=== PATIENT | male | born 1940 | race Caucasian/White ===

== ENCOUNTER → 2016-08-25 | Outpatient (CLI) | payer OTHER, MEDICARE ==
[~2016-08-25] MED LIST: ACET-1311 PO; ARTISOL12 OPB; ASCA500 PO; ASCO500T16 PO; BENZ-89 PO; BIOT1TAB5 PO; CGN5 PO; CYAN500T13 PO; FLUP1TAB PO; LINICRE61 TOP; LISI20TA3 PO; LOPE1CAP6 PO; LORA-741 PO; MIRT15TA2 PO; MIRT30TA3 PO; MOML PO; MULT-506 PO; MULT60CA PO; MULTCAP33 PO; NMN10 PO; POLY335019 PO; POLYSOL OPB; PRLDMDV IM; PYRI100T4 PO; RMR15 PO; SELE1SHA3; SIME1CHW17 PO
[2016-08-25 12:41] LABS: HEMATOCRIT 41.1 % (42-52); MEAN CELL VOLUME 89.5 fL (80-100); MEAN CORPUSCULAR HEMOGLOBIN 29.8 pg (25-34); MEAN CORPUSCULAR HGB CONC 33.3 g/dl (32-36); MEAN PLATELET VOLUME 9.7 fL (7.4-10.4); PLATELET COUNT 301 K/uL (130-400); RED BLOOD COUNT 4.59 M/uL (4.7-6.1); WHITE BLOOD COUNT 10.96 K/uL (4.8-10.8)
[2016-08-25 13:33] LABS: BLOOD UREA NITROGEN 9 mg/dl (7-18); BUN/CREATININE RATIO 8.6 (10-20); CALCIUM 8.9 mg/dl (8.5-10.1); CARBON DIOXIDE 30 mmol/L (21-32); CHLORIDE 102 mmol/L (98-107); GLUCOSE 91 mg/dl (70-99); POTASSIUM 4.5 mmol/L (3.5-5.1); SODIUM 138 mmol/L (136-145)
== END | disposition home or self-care (01) ==
LOC: C.LABWYN 10:24
PROVIDERS: ATTEND Internal Medicine
DX: R53.83 Other fatigue (principal)

== ENCOUNTER 2016-09-13 10:54 | Emergency (ER) | payer OTHER, MEDICARE ==
[~2016-09-13] VITALS: Ht 172.7 cm; Wt 112.5 kg
[~2016-09-13 10:54] MED LIST changes: -ACET-1311 PO; -ASCO500T16 PO; -BENZ-89 PO; -MIRT15TA2 PO; -MIRT30TA3 PO; -MOML PO; -MULT60CA PO; -POLY335019 PO
[2016-09-13 10:58] VITALS: TEMP 37; Ht 172.7 cm; Wt 112.5 kg
[2016-09-13] MEDS ORDERED: ASCO500T16 PO (11:32)
[2016-09-13] MEDS ORDERED: MOML PO (11:32)
[2016-09-13] MEDS ORDERED: MIRT15TA2 PO (11:32)
[2016-09-13] MEDS ORDERED: POLY335019 PO (11:32)
[2016-09-13] MEDS ORDERED: ACET-1311 PO (11:32)
[2016-09-13] MEDS ORDERED: BENZ-89 PO (11:32)
--- NOTE | 2016-09-13 11:40 | EMERGENCY ROOM VISIT NOTE ---
History First contact with patient: 11:02 Chief Complaint: SHOULDER PAIN Stated Complaint: NECK & RT SHOULDER PAIN History of Present Illness The patient is a 76 year old male who presents to the Emergency Room with complaints of right sided shoulder and neck pain. This has been going on for 2 years but last night it was more intense. The neck pain was severity 10/10 and shoulder blade pain 7/10. He lives in a personal [facility] as as I understand there was some confusion whether he was having any chest pain when he called up the nurses there and so EMS were called. From the EMS note only shoulder and neck pain are mentioned and the patient denies ever having chest pain. He is currently in no pain in his shoulder, neck or chest. He denies any palpitations , shortness of breath, diaphoresis, orthopnea or PND. Review of Systems See HPI for pertinent positives & negatives. A total of 10 systems reviewed and were otherwise negative. Past Medical/Surgical History Medical Problems: (1) Bipolar disorder (2) Dementia (3) Hypertension (4) Hyponatremia (5) Pneumonia (6) Schizoaffective disorder (7) Seizure Family History Cancer Hypertension Social History Smoking Status: Former Smoker Alcohol Use: none Housing Status: assisted living Occupation Status: retired Current/Historical Medications Scheduled Artificial Tear Solution (Artificial Tears), 1 DROP OPB BID Ascorbic Acid (Ascorbic Acid), 500 MG PO DAILY Benztropine Mesylate (Cogentin), 1.5 MG PO BID Biotin (Biotin), 1,000 MCG PO TID Cyanocobalamin (Vitamin B12 500MCG), 125 MCG PO DAILY Fluphenazine Decanoate (Fluphenazine Decanoate), 25 MG [id number] Lisinopril (Prinivil), 20 MG PO DAILY Memantine (Namenda), 10 MG PO BID Mirtazapine Soltab (Remeron Soltab), 15 MG PO HS Multiple Vitamins W/ Minerals (Preservision Areds), 1 CAP PO BID Multivitamin (Multivitamin), 1 TAB PO DAILY Polyethylene Glycol 3350 (Miralax), 17 GM PO DAILY Pyridoxine (Vitamin B6), 50 MG PO DAILY Simethicone (Gas Relief), 80 MG PO QID Scheduled PRN Acetaminophen (Tylenol), 650 MG PO Q4 PRN for Pain Loperamide Hcl (Anti-Diarrheal), 2 MG PO Q4 PRN for Diarrhea Lorazepam (Ativan), 0.5 MG PO TID PRN for Anxiety/Agitation Magnesium Hydroxide (Milk Of Magnesia), 30 ML PO DAILY PRN for Constipation Allergies Coded Allergies: Olanzapine (Verified Allergy, Mild, "IT DOES NOT WORK", 09/13/16) Risperidone (Verified Allergy, Unknown, UNKNOWN, 09/13/16) Tricyclic Antidepressants (Verified Allergy, Unknown, ., 09/13/16) Flu Virus Vaccine (Verified Adverse Reaction, Unknown, CAUSES PAIN AT INJECTION SITE, 09/13/16) Physical Exam Vital Signs Date Time Temp Pulse Resp B/P (MAP) Pulse Ox O2 Delivery O2 Flow Rate FiO2 09/13/16 13:07 72 19 178/98 98 Room Air 09/13/16 10:58 37.0 79 19 147/78 96 Room Air Physical Exam VITAL SIGNS: were reviewed as above GENERAL: no acute distress SKIN: Warm dry and pink HEAD: Normocephalic and atraumatic OROPHARYNX: 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 Unable to reproduce pain on shoulder or back. Moving his shoulder well. no shooting pain going down right arm. NEUROLOGICALLY: Awake alert and oriented. Lip smacking noted. Cranial nerves 2- 12 intact. Cerebellar testing is within normal limits. There is no facial droop. Speech is clear. Vision is grossly normal. Right arm motor and sensation intact. Medical Decision & Procedures ER Provider Diagnostic Interpretation: CHEST ONE VIEW PORTABLE CLINICAL HISTORY: Back pain. Mediastinal enlargement. COMPARISON STUDY: 07/23/2014 FINDINGS: The heart remains mildly enlarged. There is mild superior mediastinal prominence, less pronounced than on the preceding study. There is no focal pulmonary consolidation. There is no failure. There is minor right basilar atelectasis. No pleural effusions are visualized.[ IMPRESSION: AP portable study. No acute findings. Electronically signed by: Atif Campuzano M.D. 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 Medical Decision Prior records/ancillary studies reviewed. Triage Nursing notes reviewed. Additional history obtained from patient. The patient's history was concerning for neck and shoulder pain. Differential diagnosis: Etiologies such as musculoskeletal, disc herniation, fracture, aortic disease, metastatic disease, cord compression, discitis, infection, acute exacerbation of chronic back pain as well as others were entertained. Physical findings: As above. No focal neurologic findings noted. ER treatment provided: None as patient was without pain in the ER. No labs taken. Imaging studies: CXR showed This appears to be consistent with his chronic neck and shoulder pain, patient has been pain free since coming to the ER. The patient's physical examination and detailed history did not reveal any red flags for back pain such as those listed in the differential diagnosis. Therefore advanced diagnostics and consultations were felt to be unwarranted. By the evaluation outlined above emergent etiologies such as fracture, aortic disease, metastatic disease, infection, renal colic, gastrointestinal, cord compression, cauda equina, as well as others were deemed relatively unlikely. The patient was informed about the findings as listed above. All questions were answered and he pleased with the investigations done. He requested a prescription for ativan and he was advised to follow up with his PCP for prescriptions for his chronic pain and likely having muscle spasms. Return instructions were outlined and the patient was discharged in stable condition. Referral: The patient was referred back to his primary care physician for follow-up in 2 to 3 days for a recheck of the current condition. Impression Primary Impression: Chronic right shoulder pain Additional Impression: Neck muscle spasm Departure Information Dispostion Home / Self-Care Condition GOOD Referrals LUIS PEREZ (PCP) Patient Instructions My [facility] Resident Tracking Resident Involvement: Resident Care Provided Care Provided: Adult ED Problem Qualifiers
--- NOTE | 2016-09-13 11:43 | DIAGNOSTIC IMAGING REPORT ---
CHEST ONE VIEW PORTABLE CLINICAL HISTORY: Back pain. Mediastinal enlargement. COMPARISON STUDY: 07/23/2014 FINDINGS: The heart remains mildly enlarged. There is mild superior mediastinal prominence, less pronounced than on the preceding study. There is no focal pulmonary consolidation. There is no failure. There is minor right basilar atelectasis. No pleural effusions are visualized.[ IMPRESSION: AP portable study. No acute findings. Electronically signed by: Atif Campuzano M.D. 09/13/2016 11:41 AM Dictated Date/Time: 09/13/2016 11:40 AM
--- NOTE | 2016-09-13 12:44 | EMERGENCY ROOM VISIT NOTE ---
ED Visit Note First contact with patient: 11:02 Resident Physician Supervision Note: I interviewed and examined the patient. Discussed with Dr. Martin and agree with findings and plan as documented in the note. Any exceptions or clarifications are listed here: [None] Documented By: Jah Lucas
[2016-09-13 13:07] VITALS: BP 178/98; PULSE 72; O2SAT 98
== END 2016-09-13 13:08 | disposition home or self-care (01) ==
LOC: EDBD 10:54 → C.EDA 10:55
DX: M25.511 Pain in right shoulder (principal); G89.29 Other chronic pain; M62.838 Other muscle spasm; F31.9 Bipolar disorder, unspecified; F03.90 Unspecified dementia, unspecified severity, without behavioral disturbance, psychotic disturbance, mood disturbance, and anxiety; I10 Essential (primary) hypertension; E87.1 Hypo-osmolality and hyponatremia; Z87.01 Personal history of pneumonia (recurrent); F25.9 Schizoaffective disorder, unspecified; Z80.9 Family history of malignant neoplasm, unspecified; Z82.49 Family history of ischemic heart disease and other diseases of the circulatory system; Z87.891 Personal history of nicotine dependence; Z79.899 Other long term (current) drug therapy

== ENCOUNTER 2016-10-24 07:38 | Emergency (ER) | payer OTHER, MEDICARE ==
[~2016-10-24] VITALS: Ht 172.7 cm; Wt 114.4 kg
[~2016-10-24 07:38] MED LIST changes: +ACET-1311 PO; -ASCA500 PO; +ASCO500T16 PO; +CGN1 PO; -CGN5 PO; -FLUP1TAB PO; -LINICRE61 TOP; +MIRT15TA2 PO; +MOML PO; +POLY335019 PO; -POLYSOL OPB; -RMR15 PO; -SELE1SHA3
[2016-10-24 07:42] VITALS: TEMP 36.9; Ht 172.7 cm; Wt 114.4 kg
[2016-10-24] MEDS ORDERED: SODIUM CHLORIDE 0.9% 500ML 500 ML IV STA (07:53)
[2016-10-24] MEDS ORDERED: SODIUM CHLORIDE 0.9% 1000ML 1,000 ML IV STA (07:53)
--- NOTE | 2016-10-24 08:11 | EMERGENCY ROOM VISIT NOTE ---
History Report prepared by Daniel: Milly Chopra Under the Supervision of: Dr. Moon Parrish M.D. First contact with patient: 07:44 Chief Complaint: OTHER COMPLAINT Stated Complaint: UNABLE TO SWALLOW SOLID FOOD History of Present Illness The patient is a 76 year old male who presents to the Emergency Room with complaints of worsening difficulty swallowing that started a couple weeks ago. The patient came to the ED via ambulance from [facility]. He states that one of the nurses at [facility] sent him into the ED for further evaluation because he has been unable to swallow solid food for the past 2 days. The patient is able to tolerate small sips of liquids. The patient states that his mouth and throat are dry. He is unsure of if the difficulty swallowing is secondary to the dryness or if food gets stuck for other reasons. The patient is also experiencing a headache that started 1 week ago. He denies abdominal pain but states that it feels like he has to have a bowel movement. The patient has not seen GI for his symptoms. He states that is a former smoker. The patient denies any history of cancer. The patient states that he has been told that he has dementia and Alzheimer's but he does not believe that. Onset: a couple weeks ago Position: throat Quality: other (difficulty swallowing) Timing: worsening Associated Symptoms: + headache, No abdominal pain Note: dry mouth and throat Review of Systems See HPI for pertinent positives & negatives. A total of 10 systems reviewed and were otherwise negative. Past Medical & Surgical Medical Problems: (1) Bipolar disorder (2) Dementia (3) Hypertension (4) Hyponatremia (5) Pneumonia (6) Schizoaffective disorder (7) Seizure Family History Cancer Hypertension Social History Smoking Status: Unknown if Ever Smoked Alcohol Use: none Marital Status: single Housing Status: assisted living Occupation Status: retired Current/Historical Medications Scheduled Artificial Tear Solution (Artificial Tears), 1 DROP OPB BID Ascorbic Acid (Ascorbic Acid), 500 MG PO DAILY Benztropine Mesylate (Cogentin), 1.5 MG PO BID Biotin (Biotin), 1,000 MCG PO TID Cyanocobalamin (Vitamin B12 500MCG), 125 MCG PO DAILY Fluphenazine Decanoate (Fluphenazine Decanoate), 25 MG [id number] Lisinopril (Prinivil), 20 MG PO DAILY Memantine (Namenda), 10 MG PO BID Mirtazapine Soltab (Remeron Soltab), 15 MG PO HS Multiple Vitamins W/ Minerals (Preservision Areds), 1 CAP PO BID Multivitamin (Multivitamin), 1 TAB PO DAILY Polyethylene Glycol 3350 (Miralax), 17 GM PO DAILY Pyridoxine (Vitamin B6), 50 MG PO DAILY Simethicone (Gas Relief), 80 MG PO QID Scheduled PRN Acetaminophen (Tylenol), 650 MG PO Q4 PRN for Pain Loperamide Hcl (Anti-Diarrheal), 2 MG PO Q4 PRN for Diarrhea Lorazepam (Ativan), 0.5 MG PO TID PRN for Anxiety/Agitation Magnesium Hydroxide (Milk Of Magnesia), 30 ML PO DAILY PRN for Constipation Allergies Coded Allergies: Olanzapine (Verified Allergy, Mild, "IT DOES NOT WORK", 10/24/16) Risperidone (Verified Allergy, Unknown, UNKNOWN, 10/24/16) Tricyclic Antidepressants (Verified Allergy, Unknown, ., 10/24/16) Flu Virus Vaccine (Verified Adverse Reaction, Unknown, CAUSES PAIN AT INJECTION SITE, 10/24/16) Physical Exam Vital Signs Date Time Temp Pulse Resp B/P (MAP) Pulse Ox O2 Delivery O2 Flow Rate FiO2 10/24/16 10:58 75 18 189/111 95 10/24/16 10:23 75 18 189/111 95 Room Air 10/24/16 09:04 73 20 171/100 96 Room Air 10/24/16 08:39 79 10/24/16 07:42 36.9 84 17 178/97 94 Room Air Physical Exam Vital signs reviewed. General: Chronically ill-appearing male, in no significant distress. HEENT: No scleral icterus, PERRLA, dry mucous membranes, hemangioma-appearing lesion to the right upper lip, neck supple. Atraumatic. Cardiovascular: Regular rate and rhythm, no extra sounds. Pulmonary: Clear to auscultation bilaterally, normal work of breathing. Abdomen: Soft, obese, nontender, nondistended, positive bowel sounds. Musculoskeletal: Atraumatic, no peripheral edema. Neurologic: Patient awake alert and oriented x 3 Skin: Warm, dry, no rash Medical Decision & Procedures ER Provider Diagnostic Interpretation: Radiology results as stated below per my review and radiologist interpretation: CHEST 2 VIEWS ROUTINE FINDINGS: Lung volumes are normal. No pneumothorax or pleural effusion is present. Linear bibasilar opacities suggest atelectasis. There is no consolidation to suggest pneumonia. Cardiomediastinal silhouette is normal. Pulmonary vascularity is normal. IMPRESSION: 1. Linear bibasilar opacities suggestive of atelectasis. 2. No acute cardiopulmonary findings. Electronically signed by: Aaron Killian M.D. 10/24/2016 8:34 AM Dictated Date/Time: 10/24/2016 8:33 AM Laboratory Results 10/24/16 08:05 Red Blood Count 4.69, Mean Corpuscular Volume 86.6, Mean Corpuscular Hemoglobin 29.6, Mean Corpuscular Hemoglobin Concent 34.2, Mean Platelet Volume 8.8, Neutrophils (%) (Auto) 78.4, Lymphocytes (%) (Auto) 10.6, Monocytes (%) (Auto) 8.3, Eosinophils (%) (Auto) 1.7, Basophils (%) (Auto) 0.5, Neutrophils # (Auto) 9.42, Lymphocytes # (Auto) 1.27, Monocytes # (Auto) 1.00, Eosinophils # (Auto) 0.21, Basophils # (Auto) 0.06 10/24/16 08:05 Test 10/24/16 08:05 White Blood Count 12.02 K/uL (4.8-10.8) Red Blood Count 4.69 M/uL (4.7-6.1) Hemoglobin 13.9 g/dL (14.0-18.0) Hematocrit 40.6 % (42-52) Mean Corpuscular Volume 86.6 fL (80-100) Mean Corpuscular Hemoglobin 29.6 pg (25-34) Mean Corpuscular Hemoglobin Concent 34.2 g/dl (32-36) Platelet Count 288 K/uL (130-400) Mean Platelet Volume 8.8 fL (7.4-10.4) Neutrophils (%) (Auto) 78.4 % Lymphocytes (%) (Auto) 10.6 % Monocytes (%) (Auto) 8.3 % Eosinophils (%) (Auto) 1.7 % Basophils (%) (Auto) 0.5 % Neutrophils # (Auto) 9.42 K/uL (1.4-6.5) Lymphocytes # (Auto) 1.27 K/uL (1.2-3.4) Monocytes # (Auto) 1.00 K/uL (0.11-0.59) Eosinophils # (Auto) 0.21 K/uL (0-0.5) Basophils # (Auto) 0.06 K/uL (0-0.2) RDW Standard Deviation 43.9 fL (36.4-46.3) RDW Coefficient of Variation 13.9 % (11.5-14.5) Immature Granulocyte % (Auto) 0.5 % Immature Granulocyte # (Auto) 0.06 K/uL (0.00-0.02) Anion Gap 5.0 mmol/L (3-11) Est Creatinine Clear Calc Drug Dose 70.1 ml/min Estimated GFR () 75.2 Estimated GFR (Non- 64.9 BUN/Creatinine Ratio 9.0 (10-20) Calcium Level 9.0 mg/dl (8.5-10.1) Magnesium Level 2.2 mg/dl (1.8-2.4) Total Bilirubin 0.7 mg/dl (0.2-1) Direct Bilirubin 0.2 mg/dl (0-0.2) Aspartate Amino Transf (AST/SGOT) 14 U/L (15-37) Alanine Aminotransferase (ALT/SGPT) 17 U/L (12-78) Alkaline Phosphatase 57 U/L (45-117) Total Protein 6.8 gm/dl (6.4-8.2) Albumin 3.4 gm/dl (3.4-5.0) Laboratory results per my review. Medications Administered Medications (Trade) Dose Ordered Sig/Mickie Route Start Time Stop Time Status Last Admin Dose Admin Sodium Chloride 500 ml @ 999 mls/hr Q31M STAT IV 10/24/16 07:53 10/24/16 08:23 DC 10/24/16 08:42 999 MLS/HR Sodium Chloride 1,000 ml @ 125 mls/hr Q8H STAT IV 10/24/16 07:53 10/24/16 11:43 DC 10/24/16 07:53 125 MLS/HR ED Course 0752: Past medical records reviewed. The patient was evaluated in room A3. A complete history and physical examination was performed. 0753: Sodium Chloride 1000 ml @ 125 mls/hr IV, Sodium Chloride 500 ml @ 999 mls/ hr IV 0911: The nurse did a swallow study on the patient and he was able to swallow water without difficulty. 0912: I discussed the patient's case with the senior facilities manager. They are going to make sure that the patient gets in to see GI for follow-up. 0918: Upon reevaluation, the patient appeared to have improvement of his symptoms. I discussed findings with him. He verbalized agreement of the treatment plan. He was discharged home. Medical Decision Differentials include esophageal stricture, esophageal mass, dysmotility, anxiety. This patient was evaluated and appeared to be in no significant distress. IV access was obtained and laboratory work was drawn. Patient was hydrated with normal saline solution. Chest x-ray was obtained and reveals atelectasis. Patient is able to drink liquids without difficulty. Patient was encouraged to follow-up with gastroenterology, case management did contact Luis Perez. Patient will follow-up with his primary care physician this week and maintain a liquid/pureed diet. Medication Reconcilliation Current Medication List: was personally reviewed by me Blood Pressure Screening Patient's blood pressure: Elevated blood pressure Blood pressure disposition: Referred to PCP Impression Primary Impression: Dysphagia Scribe Attestation The scribe's documentation has been prepared under my direction and personally reviewed by me in its entirety. I confirm that the note above accurately reflects all work, treatment, procedures, and medical decision making performed by me. Departure Information Dispostion Home / Self-Care Referrals LUIS PEREZ (PCP) Forms HOME CARE DOCUMENTATION FORM, IMPORTANT VISIT INFORMATION, WORK / SCHOOL INSTRUCTIONS Patient Instructions My [facility] Additional Instructions Diagnosis: Dysphagia Please continue liquids and pureed foods. Follow up with gastroenterology [facility] for full swallow eval and upper endoscopy. Follow up with PCP this week for reevaluation. Return to emergency for worsening of symptoms or any medical concerns. Problem Qualifiers Primary Impression: Dysphagia Dysphagia type: unspecified Qualified Codes: R13.10 - Dysphagia, unspecified
[2016-10-24 08:16] LABS: BASO % 0.5 %; BASO ABS # 0.06 K/uL (0-0.2); COMPLETE YES; EOS % 1.7 %; HEMATOCRIT 40.6 % (42-52); IG% 0.5 %; LYMPH % 10.6 %; LYMPH ABS # 1.27 K/uL (1.2-3.4); MEAN CELL VOLUME 86.6 fL (80-100); MEAN CORPUSCULAR HEMOGLOBIN 29.6 pg (25-34); MEAN CORPUSCULAR HGB CONC 34.2 g/dl (32-36); MEAN PLATELET VOLUME 8.8 fL (7.4-10.4); MONO % 8.3 %; NEUT % 78.4 %; PLATELET COUNT 288 K/uL (130-400); RED BLOOD COUNT 4.69 M/uL (4.7-6.1); WHITE BLOOD COUNT 12.02 K/uL (4.8-10.8)
--- NOTE | 2016-10-24 08:36 | DIAGNOSTIC IMAGING REPORT ---
CHEST 2 VIEWS ROUTINE CLINICAL HISTORY: Difficulty swallowing. COMPARISON STUDY: Chest radiograph September 13, 2016. FINDINGS: Lung volumes are normal. No pneumothorax or pleural effusion is present. Linear bibasilar opacities suggest atelectasis. There is no consolidation to suggest pneumonia. Cardiomediastinal silhouette is normal. Pulmonary vascularity is normal. IMPRESSION: 1. Linear bibasilar opacities suggestive of atelectasis. 2. No acute cardiopulmonary findings. Electronically signed by: Aaron Killian M.D. 10/24/2016 8:34 AM Dictated Date/Time: 10/24/2016 8:33 AM
[2016-10-24 08:42] LABS: CREATININE 1.1 mg/dl (0.60-1.40); MAGNESIUM 2.2 mg/dl (1.8-2.4); POTASSIUM 4.4 mmol/L (3.5-5.1)
[2016-10-24 10:58] VITALS: BP 189/111; PULSE 75; O2SAT 95
== END 2016-10-24 10:59 | disposition home or self-care (01) ==
LOC: EDBD 07:38 → C.EDA 07:39
DX: R13.10 Dysphagia, unspecified (principal); F03.90 Unspecified dementia, unspecified severity, without behavioral disturbance, psychotic disturbance, mood disturbance, and anxiety; I10 Essential (primary) hypertension; J98.11 Atelectasis; Z87.01 Personal history of pneumonia (recurrent); Z87.891 Personal history of nicotine dependence; Z79.899 Other long term (current) drug therapy

== ENCOUNTER 2016-11-17 11:35 | Emergency (ER) | payer OTHER, MEDICARE ==
[~2016-11-17] VITALS: Ht 172.7 cm; Wt 110.3 kg
[2016-11-17 11:44] VITALS: TEMP 36.5; O2SAT 99; Ht 172.7 cm; Wt 110.3 kg
[2016-11-17] MEDS ORDERED: SODIUM CHLORIDE 0.9% 1000ML 1,000 ML IV STA (12:00)
--- NOTE | 2016-11-17 12:04 | EMERGENCY ROOM VISIT NOTE ---
History Report prepared by Sumanibe: Meme Miller Under the Supervision of: Dr. Kirk Marinelli D.O. First contact with patient: 11:38 Chief Complaint: SHORTNESS OF BREATH Stated Complaint: SHORTNESS OF BREATH History of Present Illness The patient is a 76 year old male who presents to the Emergency Room with complaints of persistent shortness of breath that started prior to arrival. He was brought to the ED via ALS from [facility], where he resides. He is 99% on room air upon arrival to the ED. The patient reports he was playing the drums this morning, when he became short of breath. He tried laying down, but it provided minimal relief and when he woke up, he felt too weak to get out of bed. The patient is a former smoker and states he quit approximately 5 months ago. He denies any chest pain or pain or swelling in his legs but reports his legs feel "heavy". The patient also complains of neck pain and pain in his left thigh. He denies any nausea, vomiting, abdominal pain or diarrhea. Source of History: patient, EMS, nursing staff Onset: ELECTRICAL TECH Position: chest Timing: other (persistent) Modifying Factors (Relieving): rest Associated Symptoms: + neck pain, No chest pain, No nausea, No vomiting, No abdominal pain, No diarrhea Review of Systems See HPI for pertinent positives & negatives. A total of 10 systems reviewed and were otherwise negative. Past Medical & Surgical Medical Problems: (1) Bipolar disorder (2) Dementia (3) Hypertension (4) Hyponatremia (5) Pneumonia (6) Schizoaffective disorder (7) Seizure Family History Cancer Hypertension Social History Smoking Status: Unknown if Ever Smoked Alcohol Use: none Drug Use: none Marital Status: single Housing Status: assisted living Occupation Status: retired Current/Historical Medications Scheduled Artificial Tear Solution (Artificial Tears), 1 DROP OPB BID Ascorbic Acid (Ascorbic Acid), 500 MG PO DAILY Biotin (Biotin), 1,000 MCG PO TID Cyanocobalamin (Vitamin B12 500MCG), 125 MCG PO DAILY Fluphenazine Decanoate (Fluphenazine Decanoate), 37.5 MG IM [id number] Lisinopril (Prinivil), 20 MG PO DAILY Memantine (Namenda), 10 MG PO BID Mirtazapine (Remeron), 30 MG PO HS Multiple Vitamins W/ Minerals (Preservision Areds 2), 1 CAP PO DAILY Multivitamin (Multivitamin), 1 TAB PO DAILY Polyethylene Glycol 3350 (Miralax), 17 GM PO DAILY Pyridoxine (Vitamin B6), 50 MG PO DAILY Simethicone (Gas Relief), 80 MG PO QID Scheduled PRN Acetaminophen (Tylenol), 650 MG PO Q4 PRN for Pain Benztropine Mesylate (Cogentin), 1.5 MG PO BID PRN for Muscle Spasms Loperamide Hcl (Anti-Diarrheal), 2 MG PO Q4 PRN for Diarrhea Lorazepam (Ativan), 0.5 MG PO TID PRN for Anxiety/Agitation Magnesium Hydroxide (Milk Of Magnesia), 30 ML PO DAILY PRN for Constipation Allergies Coded Allergies: Olanzapine (Verified Allergy, Mild, "IT DOES NOT WORK", 10/24/16) Risperidone (Verified Allergy, Unknown, UNKNOWN, 10/24/16) Tricyclic Antidepressants (Verified Allergy, Unknown, ., 10/24/16) Flu Virus Vaccine (Verified Adverse Reaction, Unknown, CAUSES PAIN AT INJECTION SITE, 10/24/16) Physical Exam Vital Signs Date Time Temp Pulse Resp B/P (MAP) Pulse Ox O2 Delivery O2 Flow Rate FiO2 11/17/16 16:25 74 22 168/93 97 11/17/16 15:34 79 30 191/113 97 Room Air 11/17/16 14:13 74 18 180/91 96 Room Air 84 169/112 87 191/119 11/17/16 13:43 75 16 166/108 95 Room Air 11/17/16 12:20 74 11/17/16 11:44 36.5 75 18 178/92 99 Room Air 11/17/16 11:44 99 Room Air 11/17/16 11:44 99 Room Air Physical Exam GENERAL: Patient is awake, alert, in no acute distress, patient is resting comfortably and showing no signs of anxiety EYES: The conjunctivae are clear. The pupils are round and reactive. EARS, NOSE, MOUTH AND THROAT: The nose is without any evidence of any deformity. Mucous membranes are dry, tongue is midline NECK: The neck is nontender and supple. RESPIRATORY: Normal respiratory effort is noted there is no evidence of wheezing rhonchi or rales CARDIOVASCULAR: Regular rate and rhythm noted there no murmurs rubs or gallops normal S1 normal S2 GASTROINTESTINAL: The abdomen is soft. Bowel sounds are present in all quadrants. Abdomen is nontender MUSCULOSKELETAL/EXTREMITIES: There is no evidence of gross deformity full range of motion is noted in the hips and shoulders SKIN: There is no obvious evidence of any rash. There are no petechiae, pallor or cyanosis noted. NEUROLOGIC: Patient is awake alert and oriented x3 strength is symmetric patellar reflexes are 2+ bilaterally Medical Decision & Procedures ER Provider Diagnostic Interpretation: Radiology results as stated below per my review and radiologist interpretation: CHEST ONE VIEW PORTABLE HISTORY: EVALUATE ALTERED MENTAL STATUS/WEAKNESS COMPARISON: Chest 10/22/2016. FINDINGS: Bibasilar linear densities are again noted. This favors subsegmental atelectasis or scarring. The lungs are otherwise clear. Mild interstitial thickening which is likely chronic. The heart is borderline enlarged. This is also unchanged. Right peritracheal thickening remains stable and is secondary to the normal vascular structures. No pleural effusions. No pneumothorax. IMPRESSION: No significant change compared to the prior study. No acute process. Electronically signed by: Yonathan Coppola M.D. 11/17/2016 12:23 PM HEAD WITHOUT CONTRAST (CT) CLINICAL HISTORY: 76 years-old Male presenting with EVALUATE ALTERED MENTAL STATUS/WEAKNESS. TECHNIQUE: Multidetector CT imaging of the head was performed without the use of intravenous contrast. IV contrast: None. A dose lowering technique was used consistent with the principles of ALARA (as low as reasonably achievable). COMPARISON: 07/23/2014. CT DOSE (mGy.cm): The estimated cumulative dose is 691.05 mGy.cm. FINDINGS: Night Nurse topogram: Unremarkable. Proportional ventricular and sulcal prominence likely indicating age-related parenchymal volume loss. Periventricular and subcortical white matter hypoattenuation nonspecific but likely indicating chronic small vessel ischemic change. No mass effect or midline shift. No hemorrhage or acute territorial infarct. No extra-axial fluid collection. Paranasal sinuses and mastoid air cells clear. Calvarium intact. IMPRESSION: 1. No acute intracranial pathology. 2. Chronic small vessel ischemic change. Electronically signed by: Yifan Lind M.D. 11/17/2016 12:33 PM Laboratory Results 11/17/16 11:45 Red Blood Count 4.52, Mean Corpuscular Volume 90.0, Mean Corpuscular Hemoglobin 29.4, Mean Corpuscular Hemoglobin Concent 32.7, Mean Platelet Volume 9.4, Neutrophils (%) (Auto) 76.3, Lymphocytes (%) (Auto) 13.3, Monocytes (%) (Auto) 8.1, Eosinophils (%) (Auto) 1.9, Basophils (%) (Auto) 0.3, Neutrophils # (Auto) 10.57, Lymphocytes # (Auto) 1.84, Monocytes # (Auto) 1.12, Eosinophils # (Auto) 0.26, Basophils # (Auto) 0.04 11/17/16 11:45 Test 11/17/16 11:45 11/17/16 12:07 11/17/16 14:07 White Blood Count 13.85 K/uL (4.8-10.8) Red Blood Count 4.52 M/uL (4.7-6.1) Hemoglobin 13.3 g/dL (14.0-18.0) Hematocrit 40.7 % (42-52) Mean Corpuscular Volume 90.0 fL (80-100) Mean Corpuscular Hemoglobin 29.4 pg (25-34) Mean Corpuscular Hemoglobin Concent 32.7 g/dl (32-36) Platelet Count 295 K/uL (130-400) Mean Platelet Volume 9.4 fL (7.4-10.4) Neutrophils (%) (Auto) 76.3 % Lymphocytes (%) (Auto) 13.3 % Monocytes (%) (Auto) 8.1 % Eosinophils (%) (Auto) 1.9 % Basophils (%) (Auto) 0.3 % Neutrophils # (Auto) 10.57 K/uL (1.4-6.5) Lymphocytes # (Auto) 1.84 K/uL (1.2-3.4) Monocytes # (Auto) 1.12 K/uL (0.11-0.59) Eosinophils # (Auto) 0.26 K/uL (0-0.5) Basophils # (Auto) 0.04 K/uL (0-0.2) RDW Standard Deviation 46.6 fL (36.4-46.3) RDW Coefficient of Variation 14.2 % (11.5-14.5) Immature Granulocyte % (Auto) 0.1 % Immature Granulocyte # (Auto) 0.02 K/uL (0.00-0.02) Prothrombin Time 11.5 SECONDS (9.0-12.0) Prothromb Time International Ratio 1.1 (0.9-1.1) Activated Partial Thromboplast Time 27.1 SECONDS (21.0-31.0) Partial Thromboplastin Ratio 1.0 Anion Gap 4.0 mmol/L (3-11) Est Creatinine Clear Calc Drug Dose 68.8 ml/min Estimated GFR () 75.2 Estimated GFR (Non- 64.9 BUN/Creatinine Ratio 11.2 (10-20) Calcium Level 8.7 mg/dl (8.5-10.1) Magnesium Level 2.0 mg/dl (1.8-2.4) Total Bilirubin 0.4 mg/dl (0.2-1) Direct Bilirubin 0.1 mg/dl (0-0.2) Aspartate Amino Transf (AST/SGOT) 14 U/L (15-37) Alanine Aminotransferase (ALT/SGPT) 17 U/L (12-78) Alkaline Phosphatase 51 U/L (45-117) Total Creatine Kinase 143 U/L (39-308) Creatine Kinase MB 0.6 ng/ml (0.5-3.6) Creatine Kinase MB Ratio 0.4 (0-3.0) Troponin I < 0.015 ng/ml (0-0.045) Total Protein 6.7 gm/dl (6.4-8.2) Albumin 3.2 gm/dl (3.4-5.0) Thyroid Stimulating Hormone (TSH) 0.794 uIu/ml (0.300-4.500) Bedside Glucose 96 mg/dl (70-99) Urine Color YELLOW Urine Appearance CLEAR (CLEAR) Urine pH 7.0 (4.5-7.5) Urine Specific [place] 1.012 (1.000-1.030) Urine Protein NEG (NEG) Urine Glucose (UA) NEG (NEG) Urine Ketones NEG (NEG) Urine Occult Blood NEG (NEG) Urine Nitrite NEG (NEG) Urine Bilirubin NEG (NEG) Urine Urobilinogen NEG (NEG) Urine Leukocyte Esterase NEG (NEG) Laboratory results per my review. Medications Administered Medications (Trade) Dose Ordered Sig/Mickie Route Start Time Stop Time Status Last Admin Dose Admin Sodium Chloride 1,000 ml @ 999 mls/hr Q1H1M STAT IV 11/17/16 12:00 8/15/17 13:00 DC 11/17/16 12:11 999 MLS/HR ECG Indication: SOB/dyspnea Rate (beats per minute): 76 Rhythm: normal sinus Findings: other (Poor R-wave progression noted. Diffuse ST segment abnormalities noted) Change: no significant change (No change when compared to EKG from October 13, 2016) ED Course 1154: The patient was evaluated in room C6. A complete history and physical examination were performed. 1200: NSS 1000 ml @ 999 mls/hr IV. 1600: I reevaluated the patient. He is resting comfortably. Nursing staff will call over to [facility] to see if they have any recommendations. 1618: Nursing Case Management informed me the patients caregivers report he has had increasing mental health issues. I will request our Psychiatric Potato Grader speak with the patient. 1725: I reevaluated the patient. He is feeling much better. I discussed his results and discharge instructions and he verbalized complete understanding and agreement. Medical Decision Prior records/ancillary studies reviewed and summarized above. Nursing notes reviewed. Additional history obtained from nursing staff. The patient's history was concerning for weakness. Differential diagnosis: Etiologies such as metabolic, infection, hypo/hyperglycemia, electrolyte abnormalities, cardiac sources, intracerebral event, toxicologic, neurologic, as well as others were entertained. The patient is a 76-year-old male who presented to the emergency department for fatigue and generalized weakness. The patient lives at a personal detention and he was sent to the emergency department at the request of the personal detention because he were concerned about his underlying mental health condition. The patient had normal reflexes. I discussed the patient's laboratory and radiographic studies with him. He was treated with IV fluids in the emergency department. He was evaluated by the emergency Department mental health case management assistant. He did not meet any criteria for involuntary inpatient treatment. The emergency department mental health case management assistant will attempt to contact the patient's outpatient provider to set up follow-up. He was also encouraged to follow-up with his primary care physician as soon as possible. The patient was found have a mild elevation in his white blood cell count but his urinalysis did not show any signs of infection and his chest x-ray showed no pneumonia. Otherwise the patient does not complain of any other outward sources of infection. He was encouraged to follow-up with his doctor for further evaluation especially if any signs of infection develop. He was also encouraged to return to the emergency department immediately if symptoms change worsen or the need arises. Medication Reconcilliation Current Medication List: was personally reviewed by me Blood Pressure Screening Patient's blood pressure: Elevated blood pressure Blood pressure disposition: Referred to PCP Impression Primary Impression: Weakness Sumanibmusa Attestation The scribe's documentation has been prepared under my direction and personally reviewed by me in its entirety. I confirm that the note above accurately reflects all work, treatment, procedures, and medical decision making performed by me. Departure Information Dispostion Home / Self-Care Referrals LUIS PEREZ (PCP) Patient Instructions ED Neva Aguero [facility] Additional Instructions Call your family to schedule a follow-up appointment this week. Rest and avoid any strenuous activity. Continue all medications as prescribed.. Return to emergency department immediately symptoms change worsen or need arises.
[2016-11-17 12:16] LABS: BASO % 0.3 %; BASO ABS # 0.04 K/uL (0-0.2); COMPLETE YES; EOS % 1.9 %; HEMATOCRIT 40.7 % (42-52); IG% 0.1 %; LYMPH % 13.3 %; LYMPH ABS # 1.84 K/uL (1.2-3.4); MEAN CORPUSCULAR HEMOGLOBIN 29.4 pg (25-34); MEAN CORPUSCULAR HGB CONC 32.7 g/dl (32-36); MEAN PLATELET VOLUME 9.4 fL (7.4-10.4); MONO % 8.1 %; NEUT % 76.3 %; PLATELET COUNT 295 K/uL (130-400); RED BLOOD COUNT 4.52 M/uL (4.7-6.1); WHITE BLOOD COUNT 13.85 K/uL (4.8-10.8)
[2016-11-17 12:23] LABS: ALT/SGPT 17 U/L (12-78); BLOOD UREA NITROGEN 12 mg/dl (7-18); BUN/CREATININE RATIO 11.2 (10-20); CALCIUM 8.7 mg/dl (8.5-10.1); CARBON DIOXIDE 28 mmol/L (21-32); CHLORIDE 104 mmol/L (98-107); GLUCOSE 99 mg/dl (70-99); POTASSIUM 4.5 mmol/L (3.5-5.1); SODIUM 136 mmol/L (136-145)
--- NOTE | 2016-11-17 12:24 | DIAGNOSTIC IMAGING REPORT ---
CHEST ONE VIEW PORTABLE HISTORY: EVALUATE ALTERED MENTAL STATUS/WEAKNESS COMPARISON: Chest 10/22/2016. FINDINGS: Bibasilar linear densities are again noted. This favors subsegmental atelectasis or scarring. The lungs are otherwise clear. Mild interstitial thickening which is likely chronic. The heart is borderline enlarged. This is also unchanged. Right peritracheal thickening remains stable and is secondary to the normal vascular structures. No pleural effusions. No pneumothorax. IMPRESSION: No significant change compared to the prior study. No acute process. Electronically signed by: Yonathan Coppola M.D. 11/17/2016 12:23 PM Dictated Date/Time: 11/17/2016 12:21 PM
[2016-11-17 12:34] LABS: ALKALINE PHOSPHATASE 51 U/L (45-117); AST/SGOT 14 U/L (15-37); CKMB/CK RATIO 0.4 (0-3.0); THYROID STIMULATING HORMONE 0.794 uIu/ml (0.300-4.500)
--- NOTE | 2016-11-17 12:34 | DIAGNOSTIC IMAGING REPORT ---
HEAD WITHOUT CONTRAST (CT) CLINICAL HISTORY: 76 years-old Male presenting with EVALUATE ALTERED MENTAL STATUS/WEAKNESS. TECHNIQUE: Multidetector CT imaging of the head was performed without the use of intravenous contrast. IV contrast: None. A dose lowering technique was used consistent with the principles of ALARA (as low as reasonably achievable). COMPARISON: 07/23/2014. CT DOSE (mGy.cm): The estimated cumulative dose is 691.05 mGy.cm. FINDINGS: Structural Engineering Project Manager topogram: Unremarkable. Proportional ventricular and sulcal prominence likely indicating age-related parenchymal volume loss. Periventricular and subcortical white matter hypoattenuation nonspecific but likely indicating chronic small vessel ischemic change. No mass effect or midline shift. No hemorrhage or acute territorial infarct. No extra-axial fluid collection. Paranasal sinuses and mastoid air cells clear. Calvarium intact. IMPRESSION: 1. No acute intracranial pathology. 2. Chronic small vessel ischemic change. Electronically signed by: Yifan Lind M.D. 11/17/2016 12:33 PM Dictated Date/Time: 11/17/2016 12:30 PM
[2016-11-17 12:38] LABS: INR 1.1 (0.9-1.1); PROTHROMBIN TIME (PATIENT) 11.5 SECONDS (9.0-12.0)
[2016-11-17] MEDS ORDERED: MIRT30TA3 PO (13:27)
[2016-11-17] MEDS ORDERED: MULT60CA PO (13:27)
[2016-11-17 14:31] LABS: URINE APPEARANCE CLEAR (CLEAR); URINE BILIRUBIN NEG (NEG); URINE COLOR YELLOW; URINE NITRITE NEG (NEG); URINE SPECIFIC GRAVITY 1.012 (1.000-1.030); UROBILINOGEN NEG (NEG)
[2016-11-17 14:37] LABS: MANUAL MICROSCOPIC REQUIRED? NO; REVIEW REQ? NO
[2016-11-17 19:12] VITALS: BP 196/101; PULSE 67; O2SAT 96
== END 2016-11-17 19:14 | disposition home or self-care (01) ==
LOC: EDBD 11:35 → C.EDC 11:36
DX: R53.1 Weakness (principal); F31.9 Bipolar disorder, unspecified; F03.90 Unspecified dementia, unspecified severity, without behavioral disturbance, psychotic disturbance, mood disturbance, and anxiety; I10 Essential (primary) hypertension; E87.1 Hypo-osmolality and hyponatremia; Z87.01 Personal history of pneumonia (recurrent); F25.9 Schizoaffective disorder, unspecified; Z80.9 Family history of malignant neoplasm, unspecified; Z82.49 Family history of ischemic heart disease and other diseases of the circulatory system; Z79.899 Other long term (current) drug therapy

== ENCOUNTER → 2016-12-03 | Outpatient (CLI) | payer OTHER, MEDICARE ==
[~2016-12-03] MED LIST changes: -MIRT15TA2 PO; +MIRT30TA3 PO; +MULT60CA PO; -MULTCAP33 PO
[2016-12-03 12:30] LABS: HEMATOCRIT 41.3 % (42-52); MEAN CORPUSCULAR HEMOGLOBIN 29.3 pg (25-34); MEAN CORPUSCULAR HGB CONC 32.2 g/dl (32-36); PLATELET COUNT 271 K/uL (130-400); RED BLOOD COUNT 4.54 M/uL (4.7-6.1); WHITE BLOOD COUNT 10.25 K/uL (4.8-10.8)
[2016-12-03 13:11] LABS: BLOOD UREA NITROGEN 12 mg/dl (7-18); BUN/CREATININE RATIO 11.3 (10-20); CALCIUM 8.7 mg/dl (8.5-10.1); CARBON DIOXIDE 25 mmol/L (21-32); CHLORIDE 108 mmol/L (98-107); GLUCOSE 126 mg/dl (70-99); POTASSIUM 4.4 mmol/L (3.5-5.1); SODIUM 139 mmol/L (136-145)
== END | disposition home or self-care (01) ==
LOC: C.LABWYN 15:26
PROVIDERS: ATTEND Internal Medicine
DX: R41.82 Altered mental status, unspecified (principal)

== ENCOUNTER → 2017-06-03 | Outpatient (CLI) | payer OTHER, MEDICARE ==
[~2017-06-03] MED LIST changes: +BENZ-89 PO; -CGN1 PO
[2017-06-03 12:54] LABS: HEMATOCRIT 40.6 % (42-52); MEAN CELL VOLUME 89.6 fL (80-100); MEAN CORPUSCULAR HEMOGLOBIN 30.9 pg (25-34); MEAN CORPUSCULAR HGB CONC 34.5 g/dl (32-36); MEAN PLATELET VOLUME 9.6 fL (7.4-10.4); PLATELET COUNT 295 K/uL (130-400); RED CELL DISTRIBUTION WIDTH CV 13.9 % (11.5-14.5); RED CELL DISTRIBUTION WIDTH SD 45.7 fL (36.4-46.3); WHITE BLOOD COUNT 11.57 K/uL (4.8-10.8)
[2017-06-03 13:17] LABS: BLOOD UREA NITROGEN 7 mg/dl (7-18); CALCIUM 8.9 mg/dl (8.5-10.1); CARBON DIOXIDE 29 mmol/L (21-32); CREATININE 0.99 mg/dl (0.60-1.40); GLUCOSE 109 mg/dl (70-99); POTASSIUM 4.5 mmol/L (3.5-5.1); SODIUM 136 mmol/L (136-145)
== END | disposition home or self-care (01) ==
LOC: C.LABWYN 11:44
PROVIDERS: ATTEND Nurse Practitioner Adult Health
DX: D64.9 Anemia, unspecified (principal); I10 Essential (primary) hypertension

== ENCOUNTER 2017-07-03 17:11 | Observation (INO) | payer OTHER, MEDICARE ==
[~2017-07-03] VITALS: Ht 172.7 cm; Wt 90.6 kg
[2017-07-03] MEDS ORDERED: SODIUM CHLORIDE 0.9% 250ML 250 ML IV STA (17:34)
--- NOTE | 2017-07-03 17:48 | EMERGENCY ROOM VISIT NOTE ---
History Report prepared by Daniel: Elena James Under the Supervision of: Dr. Edgardo Rangel M.D. First contact with patient: 17:19 Stated Complaint: CHEST PAIN /TNNCLOTHIER History of Present Illness The patient is a 77 year old male who presents to the Emergency Room with complaints of worsening generalized weakness beginning a couple days ago. The patient notes bleeding from the hemangioma on his lip and increased swelling in his legs. He denies abdominal pain, cough, congestion, diarrhea, or vomiting. At baseline, the patient ambulates with a walker. The patient has not eaten anything today. The patient comes from [facility]. The patient reports he called EMS and was not sent by [facility]. He is not on a blood thinner or a water pill. The patient reports he has also been having trouble speaking beginning last night. He reports this is an new symptom for him. He also reports he has difficulty speaking when he doesn't wear his dentures. He has not worn his bottom dentures since last night.. The patient has a history of dementia and Schizoaffective disorder. The patient is on prn Ativan, and benztropine for muscle spasms. He was previously on Fluphenazine. Source of History: patient Onset: a couple days ago Position: other (generalized ) Quality: other (weakness) Timing: worsening Associated Symptoms: + weakness, No cough, No vomiting, No abdominal pain, No diarrhea Review of Systems See HPI for pertinent positives and negatives. A total of ten systems were reviewed and were otherwise negative. Past Medical & Surgical Medical Problems: (1) Aphasia (2) Bipolar disorder (3) Dementia (4) Dysarthria (5) Hypertension (6) Hyponatremia (7) Pneumonia (8) Schizoaffective disorder (9) Seizure Family History Cancer Hypertension Social History Smoking Status: Unknown if Ever Smoked Alcohol Use: none Drug Use: none Marital Status: single Housing Status: assisted living Occupation Status: retired Current/Historical Medications Scheduled Artificial Tear Solution (Artificial Tears), 1 DROP OPB BID Ascorbic Acid (Ascorbic Acid), 500 MG PO QAM Biotin (Biotin), 1,000 MCG PO TID Cyanocobalamin (Vitamin B12 500MCG), 125 MCG PO QAM Lisinopril (Lisinopril), 20 MG PO QAM Memantine (Namenda), 10 MG PO BID Mirtazapine (Remeron), 30 MG PO HS Multiple Vitamins W/ Minerals (Preservision Areds 2), 1 CAP PO BID Multivitamin (Multivitamin), 1 TAB PO QAM Polyethylene Glycol 3350 (Miralax), 17 GM PO Q2D Pyridoxine (Vitamin B6), 50 MG PO QAM Simethicone (Gas Relief), 80 MG PO QID Scheduled PRN Acetaminophen (Tylenol), 650 MG PO Q4 PRN for Pain Benztropine Mesylate (Cogentin), 1.5 MG PO BID PRN for Muscle Spasms Loperamide Hcl (Anti-Diarrheal), 2 MG PO Q4 PRN for Diarrhea Lorazepam (Ativan), 0.5 MG PO TID PRN for Anxiety/Agitation Magnesium Hydroxide (Milk Of Magnesia), 30 ML PO DAILY PRN for Constipation Allergies Coded Allergies: Olanzapine (Verified Allergy, Mild, "IT DOES NOT WORK", 07/03/17) Risperidone (Verified Allergy, Unknown, UNKNOWN, 07/03/17) Tricyclic Antidepressants (Verified Allergy, Unknown, ., 07/03/17) Flu Virus Vaccine (Verified Adverse Reaction, Unknown, CAUSES PAIN AT INJECTION SITE, 07/03/17) Physical Exam Vital Signs Date Time Temp Pulse Resp B/P (MAP) Pulse Ox O2 Delivery O2 Flow Rate FiO2 07/03/17 18:47 82 20 155/98 98 Room Air 07/03/17 17:23 79 07/03/17 17:22 36.7 77 14 177/88 96 Room Air Physical Exam GENERAL: Awake, alert, chronically ill-appearing, fatigued appearing in no distress HENT: Normocephalic, atraumatic. Oropharynx unremarkable. Dry mucus membranes. Right upper lateral lip hemangioma, no evidence of active bleeding. EYES: Normal conjunctiva. Sclera non-icteric. NECK: Supple. No nuchal rigidity. FROM. No JVD. RESPIRATORY: Clear to auscultation. CARDIAC: Regular rate, normal rhythm. Extremities warm and well perfused. Pulses equal. ABDOMEN: Soft, non-distended. No tenderness to palpation. No rebound or guarding. No masses. RECTAL: Deferred. MUSCULOSKELETAL: Chest examination reveals no tenderness. The back is symmetrical on inspection without obvious abnormality. There is no CVA tenderness to palpation. No joint edema. LOWER EXTREMITIES: 1+ bilateral lower extremity edema. Calves are equal size bilaterally and non-tender. No discoloration. NEURO: Normal sensorium. No sensory or motor deficits noted. Mild dysarthria. 4+ /5 strength and SILT x 4 ext. SKIN: No rash or jaundice noted. Medical Decision & Procedures ER Provider Diagnostic Interpretation: Radiology results as stated below per my review and radiologist interpretation: SINGLE VIEW CHEST FINDINGS: An AP, portable, upright chest radiograph is compared to study dated 11/17/2016 and correlated with chest CT dated 07/24/2014. The examination is degraded by portable technique, apical lordotic positioning, and patient rotation. The heart is enlarged and there is atherosclerotic calcification of the thoracic aorta. The pulmonary vasculature is noncongested. Emphysema and chronic interstitial thickening are similar to previous. No airspace consolidation or large pleural effusion is identified. There is left basilar atelectasis. No pneumothorax is seen. The skeletal structures are osteopenic. The bony thorax is grossly intact. IMPRESSION: Cardiomegaly and emphysema with no acute cardiopulmonary abnormality. Electronically signed by: Jason Camacho M.D. CT SCAN OF THE BRAIN WITHOUT IV CONTRAST FINDINGS: Brain parenchyma: There are age-related involutional changes noting moderate subcortical and periventricular microangiopathic change. There is no hemorrhage, mass effect, or evidence of acute territorial ischemia by CT criteria. [place]-white matter is preserved. No extra-axial fluid collection is seen. Ventricles, sulci, cisterns: Prominent secondary to involutional change. Intracranial vasculature: There is atherosclerotic calcification of the cavernous carotid and vertebral arteries. Calvarium: Unremarkable. Sinuses and mastoids: The visualized paranasal sinuses are clear. The mastoid air cells are well pneumatized. Orbits: The bony orbits are grossly intact. There are bilateral ocular lens implants. IMPRESSION: There is no hemorrhage, mass effect, or evidence of acute territorial ischemia by CT criteria. Electronically signed by: Jason Camacho M.D. MRI OF THE BRAIN WITHOUT IV CONTRAST FINDINGS: Brain parenchyma: There are age-related involutional changes noting moderate to advanced confluent subcortical and periventricular microangiopathic disease. Chronic lacunar infarcts are identified in the left thalamus. There is no hemorrhage or mass effect. There is no restricted diffusion to suggest acute ischemia. [place]-white matter differentiation is preserved. No extra-axial fluid collection is seen. The cerebellar tonsils are normal in configuration. Ventricles, sulci, and cisterns: Prominent secondary to involutional change. Pituitary and sella: Unremarkable. Intracranial vasculature: Normal flow voids are maintained at the skull base. Orbits: The bony orbits are grossly intact. Orbital contents are normal in appearance noting bilateral ocular lens implants. Sinuses and mastoids: Clear. Calvarium: Unremarkable. Cervical cord: Partially visualized cervical spinal cord is normal in morphology and signal intensity. Soft tissues: A 2.6 cm T2 hyperintense lesion is partially visualized in the region of the right buccal mucosa. This is seen on coronal FLAIR image #3 and likely corresponds to the reported history of a hemangioma. IMPRESSION: Senescent changes as above with no acute intracranial abnormality. Electronically signed by: Jason Camacho M.D. Laboratory Results 07/03/17 16:48 Red Blood Count 4.62, Mean Corpuscular Volume 86.8, Mean Corpuscular Hemoglobin 30.3, Mean Corpuscular Hemoglobin Concent 34.9, Mean Platelet Volume 9.3, Neutrophils (%) (Auto) 77.2, Lymphocytes (%) (Auto) 10.6, Monocytes (%) (Auto) 9.6, Eosinophils (%) (Auto) 1.6, Basophils (%) (Auto) 0.4, Neutrophils # (Auto) 11.43, Lymphocytes # (Auto) 1.57, Monocytes # (Auto) 1.42, Eosinophils # (Auto) 0.24, Basophils # (Auto) 0.06 07/03/17 16:48 Test 07/03/17 16:48 07/03/17 17:50 07/03/17 18:55 White Blood Count 14.81 K/uL (4.8-10.8) Red Blood Count 4.62 M/uL (4.7-6.1) Hemoglobin 14.0 g/dL (14.0-18.0) Hematocrit 40.1 % (42-52) Mean Corpuscular Volume 86.8 fL (80-100) Mean Corpuscular Hemoglobin 30.3 pg (25-34) Mean Corpuscular Hemoglobin Concent 34.9 g/dl (32-36) Platelet Count 334 K/uL (130-400) Mean Platelet Volume 9.3 fL (7.4-10.4) Neutrophils (%) (Auto) 77.2 % Lymphocytes (%) (Auto) 10.6 % Monocytes (%) (Auto) 9.6 % Eosinophils (%) (Auto) 1.6 % Basophils (%) (Auto) 0.4 % Neutrophils # (Auto) 11.43 K/uL (1.4-6.5) Lymphocytes # (Auto) 1.57 K/uL (1.2-3.4) Monocytes # (Auto) 1.42 K/uL (0.11-0.59) Eosinophils # (Auto) 0.24 K/uL (0-0.5) Basophils # (Auto) 0.06 K/uL (0-0.2) RDW Standard Deviation 43.5 fL (36.4-46.3) RDW Coefficient of Variation 13.7 % (11.5-14.5) Immature Granulocyte % (Auto) 0.6 % Immature Granulocyte # (Auto) 0.09 K/uL (0.00-0.02) Activated Partial Thromboplast Time 29.4 SECONDS (21.0-31.0) Partial Thromboplastin Ratio 1.1 Anion Gap 11.0 mmol/L (3-11) Est Creatinine Clear Calc Drug Dose 72.4 ml/min Estimated GFR () 84.8 Estimated GFR (Non- 73.2 BUN/Creatinine Ratio 15.5 (10-20) Calcium Level 9.1 mg/dl (8.5-10.1) Magnesium Level 2.0 mg/dl (1.8-2.4) Total Bilirubin 0.6 mg/dl (0.2-1) Direct Bilirubin 0.2 mg/dl (0-0.2) Aspartate Amino Transf (AST/SGOT) 14 U/L (15-37) Alanine Aminotransferase (ALT/SGPT) 14 U/L (12-78) Alkaline Phosphatase 67 U/L (45-117) Troponin I < 0.015 ng/ml (0-0.045) Pro-B-Type Natriuretic Peptide 1072 pg/ml (0-1800) Total Protein 7.0 gm/dl (6.4-8.2) Albumin 3.2 gm/dl (3.4-5.0) Lipase 141 U/L (73-393) Thyroid Stimulating Hormone (TSH) 1.630 uIu/ml (0.300-4.500) Influenza Type A (RT-PCR) Neg for Influ A (NEG) Influenza Type B (RT-PCR) Neg for Influ B (NEG) Urine Color YELLOW Urine Appearance CLEAR (CLEAR) Urine pH 7.0 (4.5-7.5) Urine Specific [place] 1.012 (1.000-1.030) Urine Protein NEG (NEG) Urine Glucose (UA) NEG (NEG) Urine Ketones TRACE (NEG) Urine Occult Blood NEG (NEG) Urine Nitrite NEG (NEG) Urine Bilirubin NEG (NEG) Urine Urobilinogen NEG (NEG) Urine Leukocyte Esterase NEG (NEG) Laboratory results reviewed by me Medications Administered Medications (Trade) Dose Ordered Sig/Mickie Route Start Time Stop Time Status Last Admin Dose Admin Sodium Chloride 250 ml @ 999 mls/hr Q16M STAT IV 07/03/17 17:34 07/03/17 20:36 DC 07/03/17 18:00 999 MLS/HR Benztropine Mesylate (Cogentin Inj) 1.5 mg NOW STAT IV 07/03/17 18:36 07/03/17 18:39 DC 07/03/17 18:46 1.5 MG Sodium Chloride 1,000 ml @ 999 mls/hr Q1H1M STAT IV 07/03/17 18:54 07/03/17 19:54 DC 07/03/17 19:01 999 MLS/HR ECG Per My Interpretation Indication: weakness Rate (beats per minute): 79 Rhythm: normal sinus Findings: LAFB, no acute ischemic change ED Course 172: The patient was evaluated in room C8. A complete history and physical exam was performed. 1808: Conversation with [employer] from [facility]. She does not know the patient very well but she confirmed it was chocolate on the patients gao and not blood. She reports the patient has been saying he hasn't felt well over the past couple days, however, she reports he was not complaining of any specific symptoms. 1818: Conversation with donkey doctor charge nurse from [facility]. She reports the patient's baseline speech is not clear. When she saw the patient this morning she did not notice anything different about the patient. When she asked him how he was this morning he responded by saying "not good". The donkey doctor nurse reports is a normal response for the patient. She does not believe the patient has ever had a swallow study. She states the patient is pretty independent. 1908: I discussed the patient with Dr. Nunez - He will evaluate the patient for further treatment. Medical Decision I reviewed the patient's past medical history, medications, and the nursing notes as described above. Differential diagnosis: Etiologies such as metabolic, infection, hypo/hyperglycemia, electrolyte abnormalities, cardiac sources, intracerebral event, toxicologic, neurologic, as well as others were entertained. The patient is a 77-year-old gentleman with a past medical history of dementia, schizoaffective disorder who presents emergency department from [facility] with worsening generalized weakness and increasing difficulty in speech since last night which he says is new for him per hpi. On arrival the patient is chronically ill and fatigued appearing but no acute distress, afebrile stable vital signs. He has dry cracked mucous membranes. He has a right upper lip hemangioma which he says has been there for some time. The patient has 4+/5 strength and SILT in all extremities. RN bedside speech and swallow trial resulted in the patient coughing up water raising suspicion for aspiration risk. Otherwise the patient reports improved speech once we are able to put his lower dentures in but still reports difficulty that is different from his baseline. Patient was given a dose of Cogentin which is his as needed medication to see if this helped. WBC 14. Labs otherwise unremarkable including flu negative. CT head negative. I did discuss the case with the on- call nurse manager rn at [facility] reports that the patient never has completely had clear speech but as far she is aware he has never had any difficulty swallowing. Given the patient's reporting worsening dysarthria and now exhibits difficulty with swallowing concerning for aspiration risk is reasonable to admit the patient for further stroke rule out and speech and swallow evaluation. Of note, patient had GI appointment to evaluated dysphagia in November 2016 but he canceled because he was feeling better. MRI ordered and pending. Case was discussed with [facility] hospitalist who will evaluate the patient for admission. Medication Reconcilliation Current Medication List: was personally reviewed by me Blood Pressure Screening Patient's blood pressure: Elevated blood pressure Blood pressure disposition: Referred to PCP (referred to hospitalist) Consults Time Called: 1900 Consulting Physician: Dr. Nunez Returned Call: 1908 I discussed the patient with Dr. Nunez - He will evaluate the patient for further treatment. Impression Primary Impression: Generalized weakness Additional Impressions: Dysarthria Dysphasia Scribe Attestation The scribe's documentation has been prepared under my direction and personally reviewed by me in its entirety. I confirm that the note above accurately reflects all work, treatment, procedures, and medical decision making performed by me. Departure Information Dispostion Being Evaluated By Hospitalist Referrals LUIS PEREZ (PCP) Problem Qualifiers
[2017-07-03] MEDS ORDERED: LSN20 PO (17:58)
[2017-07-03 18:04] LABS: BASO % 0.4 %; BASO ABS # 0.06 K/uL (0-0.2); EOS % 1.6 %; EOS ABS # 0.24 K/uL (0-0.5); HEMATOCRIT 40.1 % (42-52); IG# 0.09 K/uL (0.00-0.02); LYMPH % 10.6 %; LYMPH ABS # 1.57 K/uL (1.2-3.4); MEAN CELL VOLUME 86.8 fL (80-100); MEAN CORPUSCULAR HEMOGLOBIN 30.3 pg (25-34); MEAN CORPUSCULAR HGB CONC 34.9 g/dl (32-36); MEAN PLATELET VOLUME 9.3 fL (7.4-10.4); MONO % 9.6 %; MONO ABS # 1.42 K/uL (0.11-0.59); NEUT % 77.2 %; NEUT ABS # 11.43 K/uL (1.4-6.5); PLATELET COUNT 334 K/uL (130-400); RED CELL DISTRIBUTION WIDTH CV 13.7 % (11.5-14.5); RED CELL DISTRIBUTION WIDTH SD 43.5 fL (36.4-46.3); WHITE BLOOD COUNT 14.81 K/uL (4.8-10.8)
--- NOTE | 2017-07-03 18:11 | DIAGNOSTIC IMAGING REPORT ---
SINGLE VIEW CHEST CLINICAL HISTORY: Generalized abdominal pain. FINDINGS: An AP, portable, upright chest radiograph is compared to study dated 11/17/2016 and correlated with chest CT dated 07/24/2014. The examination is degraded by portable technique, apical lordotic positioning, and patient rotation. The heart is enlarged and there is atherosclerotic calcification of the thoracic aorta. The pulmonary vasculature is noncongested. Emphysema and chronic interstitial thickening are similar to previous. No airspace consolidation or large pleural effusion is identified. There is left basilar atelectasis. No pneumothorax is seen. The skeletal structures are osteopenic. The bony thorax is grossly intact. IMPRESSION: Cardiomegaly and emphysema with no acute cardiopulmonary abnormality. Electronically signed by: Jason Camacho M.D. 07/03/2017 6:10 PM Dictated Date/Time: 07/03/2017 6:08 PM
[2017-07-03 18:13] LABS: ALBUMIN 3.2 gm/dl (3.4-5.0); ALT/SGPT 14 U/L (12-78); AST/SGOT 14 U/L (15-37); BLOOD UREA NITROGEN 15 mg/dl (7-18); CALCIUM 9.1 mg/dl (8.5-10.1); CARBON DIOXIDE 23 mmol/L (21-32); CREATININE 0.99 mg/dl (0.60-1.40); GLUCOSE 101 mg/dl (70-99); LIPASE 141 U/L (73-393); POTASSIUM 4.2 mmol/L (3.5-5.1); SODIUM 132 mmol/L (136-145)
[2017-07-03 18:19] LABS: ALKALINE PHOSPHATASE 67 U/L (45-117)
[2017-07-03 18:35] LABS: INFLUENZA A PCR Neg for Influ A (NEG); INFLUENZA B PCR Neg for Influ B (NEG)
[2017-07-03] MEDS ORDERED: BENZTROPINE MESYLATE 1 MG/ML 2 ML AMP IV STA (18:36)
--- NOTE | 2017-07-03 18:45 | DIAGNOSTIC IMAGING REPORT ---
CT SCAN OF THE BRAIN WITHOUT IV CONTRAST CLINICAL HISTORY: Generalized weakness. COMPARISON STUDY: CT of the brain dated 11/17/2016. TECHNIQUE: Unenhanced axial CT scan of the brain is performed from the vertex to the skull base. A dose lowering technique was utilized adhering to the principles of ALARA. CT DOSE: 614.27 mGy.cm FINDINGS: Brain parenchyma: There are age-related involutional changes noting moderate subcortical and periventricular microangiopathic change. There is no hemorrhage, mass effect, or evidence of acute territorial ischemia by CT criteria. [place]-white matter is preserved. No extra-axial fluid collection is seen. Ventricles, sulci, cisterns: Prominent secondary to involutional change. Intracranial vasculature: There is atherosclerotic calcification of the cavernous carotid and vertebral arteries. Calvarium: Unremarkable. Sinuses and mastoids: The visualized paranasal sinuses are clear. The mastoid air cells are well pneumatized. Orbits: The bony orbits are grossly intact. There are bilateral ocular lens implants. IMPRESSION: There is no hemorrhage, mass effect, or evidence of acute territorial ischemia by CT criteria. Electronically signed by: Jason Camacho M.D. 07/03/2017 6:44 PM Dictated Date/Time: 07/03/2017 6:42 PM
[2017-07-03] MEDS ORDERED: SODIUM CHLORIDE 0.9% 1000ML 1,000 ML IV STA (18:54)
[2017-07-03 19:51] LABS: PTT PATIENT 29.4 SECONDS (21.0-31.0)
[2017-07-03] MEDS ORDERED: IV FLUIDS COMPLETED PRN (20:00)
[2017-07-03] MEDS ORDERED: ASPIRIN 81 MG CHEW PO ONE (20:15)
[2017-07-03] MEDS ORDERED: OXYCODONE/ACETAMINOPHEN 5-325 TAB PO PRN (20:30)
[2017-07-03] MEDS ORDERED: BENZTROPINE MESYLATE 1 MG TAB PO PRN (20:30)
[2017-07-03] MEDS ORDERED: PROCHLORPERAZINE INJ 5 MG in SYRINGE 4 ML IV PRN (20:30)
[2017-07-03] MEDS ORDERED: ACETAMINOPHEN 325 MG TAB PO PRN (20:30)
[2017-07-03] MEDS ORDERED: SODIUM CHLORIDE 0.9% 1000ML 1,000 ML IV ONE (20:30)
[2017-07-03] MEDS ORDERED: LORAZEPAM 0.5 MG TAB PO PRN (20:30)
[2017-07-03] MEDS ORDERED: NITROGLYCERIN 0.4 MG SL PER TAB CHARGE SL PRN (20:30)
[2017-07-03] MEDS ORDERED: PHARMACIST DISCHARGE MED REC CONSULT PRN (20:30)
--- NOTE | 2017-07-03 21:19 | DIAGNOSTIC IMAGING REPORT ---
CT SCAN OF THE NECK WITH IV CONTRAST CLINICAL HISTORY: Dysarthria. Hemangioma of the lip. COMPARISON STUDY: No priors. TECHNIQUE: Following the IV administration of 117 cc of Optiray 320, CT scan of the soft tissues of the neck was performed from the skull base to the upper chest. Images are reviewed in the axial, sagittal, and coronal planes. IV contrast was administered without complication. A dose lowering technique was utilized adhering to the principles of ALARA. CT DOSE: 553.70 mGy.cm FINDINGS: Soft tissues: There is a soft tissue lesion identified in the region of the right buccal mucosa seen on image #134. This is deep to the cutaneous marker at the site of interest and measures approximately 3 x 4.5 x 1.5 cm. Technical internal vessels are identified and this likely corresponds to the reported clinical history of a hemangioma. No significant inflammatory changes identified. Pharynx: The nasopharynx, oropharynx, and laryngeal pharynx are normal in appearance. The pharyngeal airway is widely patent. There is no evidence of mass lesion. The vocal cords are symmetric. The parapharyngeal fat is well maintained. The prevertebral/retropharyngeal soft tissues are within normal limits. Lymphadenopathy: No cervical lymphadenopathy is seen Thyroid: Normal in size and attenuation. A 9 mm low-attenuation nodule is seen in the posterior left lobe. Salivary glands: The parotid and submandibular glands are within normal limits. There is a 1.2 cm ovoid nodule within the right parotid gland seen on image #173. Brain parenchyma: The visualized brain parenchyma is normal in appearance noting age-related involutional change. Vascular structures: There is atherosclerotic calcification of the carotid bulbs. The carotid arteries and jugular veins are patent. Skeletal structures: The skeletal structures are osteopenic. Imaged portions of the calvarium at the skull base are within normal limits. The cervical spine appears intact noting multilevel spondylosis. No lytic or blastic lesion is seen. Sinuses and mastoids: The visualized paranasal sinuses are clear. There is a trace left mastoid effusion. The right mastoid air cells are well pneumatized. Orbits: The bony orbits are intact as visualized. Orbital contents are normal in appearance noting bilateral ocular lens implants. Lung apices: Emphysematous changes noted at the lung apices. The imaged upper lobe lung parenchyma is otherwise clear. IMPRESSION: 1. No acute abnormality is identified. 2. There is a 4.5 cm lobulated soft tissue lesion with tangled internal vessels identified in the region of the right buccal mucosa and located deep to the cutaneous marker. This likely corresponds to the reported history of a hemangioma. Correlation with direct visualization will be required. 3. There is a 1.2 cm ovoid nodule identified in the right parotid gland. This is pathologically indeterminant and could represent an intraparotid lymph node or possibly a primary salivary tumor such as [place]'s tumor. 4. Emphysema. Electronically signed by: Jason Camacho M.D. 07/03/2017 9:18 PM Dictated Date/Time: 07/03/2017 9:03 PM
--- NOTE | 2017-07-03 21:26 | HISTORY & PHYSICAL EXAMINATION ---
DATE OF ADMISSION: 07/03/2017 PRIMARY CARE PHYSICIAN: Boris Chambers MD. Patient is a [facility] resident. CHIEF COMPLAINT: Trouble talking. HISTORY OF PRESENT ILLNESS: History obtained from patient, residential staff, records. Patient is a fair historian. Medical history significant for mood disorder, dementia, schizoaffective disorder as per records, hypertension, chronic upper lip hemangioma, past tobacco abuse. Recent confinement last 2014 for hyponatremia and encephalopathy. As per records, patient noted difficulty talking yesterday. He thinks it might be his chronic right upper lip hemangioma which has slowly grown over the years, some bleeding yesterday as per patient. As per residential staff, patient noted to have trouble talking last night, lip hemangioma looked the same as far as size to them. No witnessed bleeding except for a chocolate stain on patient's mouth as per staff. Patient denies headache, chest pain, shortness of breath. Admits to some bilateral leg swelling. Patient brought to the Emergency Room. MEDICAL HISTORY: As above. Patient evaluated at [facility] October 2013 for right upper lip hemangioma leading to patient difficulty getting his dentures in. CAT scan showed moderate soft tissue thickening, enhancement of the right cheek extended to the adjacent lip. The posterior margin of the lesion abuts the maxilla. Posterolateral margin abuts the fascia of the technical account manager space without gross invasion of the space. No adenopathy. Also note of thyroid lesion. Recommendation was conservative excision of lip hemangioma to restore function due to significant functional deformity as per note. Consent was to be obtained from POA. Procedure was cancelled as per records. As per patient, he did not like surgeon who evaluated him in [place]. SURGERIES: He has had cystoscopy and tonsillectomy. HOME MEDICATIONS: Include Namenda, multivitamins, MiraLax, Simethicone, Ativan, loperamide, lisinopril, milk of magnesia, Remeron, multivitamins, ascorbic acid, Tylenol, Cogentin, biotin, vitamin B12. ALLERGIES: ALLERGIC TO FLU VACCINE, RISPERIDONE, OLANZAPINE. FAMILY HISTORY: Could not be reliably obtained PERSONAL AND SOCIAL HISTORY: He is a [facility] resident, past tobacco abuse. 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 REVIEW OF SYSTEMS: As per HPI. All 10 systems reviewed. All other ROS negative. PHYSICAL EXAMINATION: VITAL SIGNS: Blood pressure was noted to be 177/88, pulse rate noted to be 77, RR 14, temperature 36.7, sats 96 on room air. GENERAL: Noted to be slightly uncomfortable. No respiratory distress. unkempt, coherent. Dysarthric SKIN: Normal color, warm. HEENT: Facial symmetry, pink palpebral conjunctivae. No ptosis. Dry tongue surface w/ brown discoloration (?chocolate), No obvious bleeding lesions ; right upper lip hemangioma noted extending to right buccal mucosa w/o obvious bleeding, nontender NECK: Supple, nontender. CHEST: Decreased breath sounds. No tenderness. HEART: Regular rate and rhythm, no murmur. ABDOMEN: Some distention, nontender. EXTREMITIES: No edema noted. No gross deformities. No tenderness. NEUROLOGIC: Coherent. No gross focality except for dysarthria. Facial symmetry LABORATORY DATA: Hemoglobin was noted to be 14, hematocrit 40, white cell 14.81, platelets 334. Sodium 130, potassium 4.2, chloride 97, CO2 23, BUN 50, creatinine 0.9, glucose 101. CT head, no acute pathology. Chest x-ray, cardiomegaly, emphysema. EKG as per my interpretation, rate 80 NSR, LAD, LAFB, T-wave flattening in the anterior leads. ASSESSMENT: 1. Dysarthria, facial asymmetry possibly from enlarging right upper lip hemangioma. Rule out cerebrovascular accident. 2. Hypertension, elevated. 3. Dementia/Schizoaffective disorder/Mood disorder.as per records seems to be stable. 4. Past tobacco abuse. 5. Bilateral LE swelling ro DVT PLAN: Observation PCU, neuro checks. Aspirin for now for stroke prevention until stroke ruled out by MRI/MRA of the brain. Permissive hypertension until stroke rule out. May need additional stroke workup pending MRI results. CT of the oral cavity to determine extent of right upper lip hemangioma. Outpatient ENT consultation pending results. LE venous Dopplers rule out DVT DVT prophylaxis, SCDs for now RE intermittent bleeding from hemangioma as per patient. Full code. MTDD
--- NOTE | 2017-07-03 21:49 | DIAGNOSTIC IMAGING REPORT ---
MRI OF THE BRAIN WITHOUT IV CONTRAST CLINICAL HISTORY: Dysarthria. Dysphagia. COMPARISON STUDY: CT scans of the brain and neck performed the same day 07/03/2017. TECHNIQUE: MRI of the brain was performed utilizing various T1 and T2-weighted sequences in the axial, sagittal, and coronal planes. IV contrast was not administered for this examination. FINDINGS: Brain parenchyma: There are age-related involutional changes noting moderate to advanced confluent subcortical and periventricular microangiopathic disease. Chronic lacunar infarcts are identified in the left thalamus. There is no hemorrhage or mass effect. There is no restricted diffusion to suggest acute ischemia. [place]-white matter differentiation is preserved. No extra-axial fluid collection is seen. The cerebellar tonsils are normal in configuration. Ventricles, sulci, and cisterns: Prominent secondary to involutional change. Pituitary and sella: Unremarkable. Intracranial vasculature: Normal flow voids are maintained at the skull base. Orbits: The bony orbits are grossly intact. Orbital contents are normal in appearance noting bilateral ocular lens implants. Sinuses and mastoids: Clear. Calvarium: Unremarkable. Cervical cord: Partially visualized cervical spinal cord is normal in morphology and signal intensity. Soft tissues: A 2.6 cm T2 hyperintense lesion is partially visualized in the region of the right buccal mucosa. This is seen on coronal FLAIR image #3 and likely corresponds to the reported history of a hemangioma. IMPRESSION: Senescent changes as above with no acute intracranial abnormality. Electronically signed by: Jason Camacho M.D. 07/03/2017 9:48 PM Dictated Date/Time: 07/03/2017 9:44 PM
--- NOTE | 2017-07-03 22:03 | DIAGNOSTIC IMAGING REPORT ---
MR ANGIOGRAM OF THE BRAIN CLINICAL HISTORY: Dysphagia. Dysarthria. COMPARISON STUDY: MRI of the brain performed concurrently on 07/03/2017. TECHNIQUE: 3-D [id number] MR angiography of the intracranial circulation is performed. 3-D tumble views are created and assessed. IV contrast was not administered for this examination. FINDINGS: There is origin of the right posterior cerebral artery. The internal carotid arteries are patent at the skull base, as are the anterior cerebral arteries. There is approximately 50% stenosis involving the left M1 segment. The middle cerebral arteries are otherwise widely patent. The vertebral and basilar arteries are widely patent. Focal stenosis is identified in the left posterior cerebral artery seen on axial image #106. The right posterior cerebral artery is widely patent. The left vertebral artery is dominant and the right vertebral artery is diminutive. There is no aneurysm or focal vessel cutoff seen throughout the intracranial circulation. IMPRESSION: 1. There is focal high-grade stenosis identified within the left posterior cerebral artery. 2. There is approximately 50% stenosis within the M1 segment of the left middle cerebral artery. 3. Otherwise unremarkable MR angiogram of the brain. Electronically signed by: Jason Camacho M.D. 07/03/2017 10:02 PM Dictated Date/Time: 07/03/2017 9:58 PM
[2017-07-03] MEDS: CEROVITE ADV FORMULA TAB PO SCH (22:24)
[2017-07-03] MEDS: LISINOPRIL 2.5 MG TAB PO SCH (22:25)
[2017-07-03] MEDS: MIRTAZAPINE TAB 15 MG TAB PO SCH (22:25)
[2017-07-03] MEDS: MEMANTINE 10 MG TAB PO SCH (22:25)
[2017-07-03 22:33] VITALS: BP 177/93; PULSE 86; TEMP 36.6; O2SAT 97; Ht 172.7 cm; Wt 90.6 kg
[2017-07-03 23:04] VITALS: BP 173/92; PULSE 79; TEMP 37.3; O2SAT 96
[2017-07-04] VITALS (12 sets, daily range): BP systolic 132–170; BP diastolic 78–93; PULSE 68–88; TEMP 36.5–36.9; O2SAT 95–99
[2017-07-04 06:30] LABS: BASO % 0.5 %; BASO ABS # 0.08 K/uL (0-0.2); EOS % 2.1 %; EOS ABS # 0.31 K/uL (0-0.5); HEMATOCRIT 40.4 % (42-52); HEMOGLOBIN 13.9 g/dL (14.0-18.0); IG# 0.08 K/uL (0.00-0.02); LYMPH % 15.6 %; LYMPH ABS # 2.35 K/uL (1.2-3.4); MEAN CELL VOLUME 87.6 fL (80-100); MEAN CORPUSCULAR HEMOGLOBIN 30.2 pg (25-34); MEAN CORPUSCULAR HGB CONC 34.4 g/dl (32-36); MEAN PLATELET VOLUME 9.2 fL (7.4-10.4); MONO % 8.5 %; MONO ABS # 1.29 K/uL (0.11-0.59); NEUT % 72.8 %; PLATELET COUNT 344 K/uL (130-400); RED CELL DISTRIBUTION WIDTH CV 13.9 % (11.5-14.5); RED CELL DISTRIBUTION WIDTH SD 44.5 fL (36.4-46.3); WHITE BLOOD COUNT 15.11 K/uL (4.8-10.8)
[2017-07-04 07:12] LABS: CALCIUM 8.7 mg/dl (8.5-10.1); CREATININE 0.94 mg/dl (0.60-1.40); POTASSIUM 4.2 mmol/L (3.5-5.1)
[2017-07-04] MEDS ORDERED: POLYETHYLENE (MIRALAX) 17 GM PACK PO SCH (09:00)
[2017-07-04] MEDS ORDERED: ASPIRIN 81 MG ECTAB PO SCH (09:00)
--- NOTE | 2017-07-04 10:10 | ECHOCARDIOGRAM REPORT ---
*NOTICE TO RECEIVING CONSTITUTION PARTY AGENCY This information is strictly Confidential and protected under [place] law. [place] law prohibits you from making any further disclosure of this information unless further disclosure is expressly permitted by the written consent of the person to whom it pertains or is authorized by law. A general authorization for the release of medical or other information is not sufficient for this purpose. Hospital accepts no responsibility if the information is made available to any other person, INCLUDING THE PATIENT. Interpretation Summary * Name: EVELIN RAMOS Study Date: 07/04/2017 06:57 AM BP: 164/92 mmHg * Patient Location: [facility]\S\N284\S\2 HR: 83 * : 1940 (M/d/yyy) Gender: Male Height: 68 in * Age: 77 yrs Ethnicity: [place] Weight: 225 lb * Ordering Physician: David Carmona * Referring Physician: LUIS PEREZ * Performed By: Misty Min RCS * * Reason For Study: STROKE * BSA: 2.1 m2 * -- Conclusions -- * Normal LV chamber size with mild concentric LVH, sigmoid appearing septum. * Low normal LV systolic function with borderline global hypokinesis, EF 50-55%. * Grade I diastolic dysfunction. * Aortic valve sclerosis mild, without significant aortic valvular stenosis. * Mild left atrial enlargement. * The interatrial septum is intact with no evidence for an atrial septal defect. * Injection of contrast documented no interatrial shunt. Procedure Details * A complete two-dimensional transthoracic echocardiogram was performed (2D, M-mode, Doppler and color flow Doppler). * A saline contrast injection was performed to assess for cardiac shunting. * The injection was performed through an intravenous line in the left arm. * The attending nurse who injected the saline contrast was GEORGIA RODRIGUEZ, RN. * A total of 20 cc of agitated saline was given. Left Ventricle * The left ventricle is normal in size. * There is mild concentric left ventricular hypertrophy. * The basal septum is thickened and angulated consistent with sigmoid septum. * Left ventricular systolic function is low normal. * Ejection Fraction = 50-55%. * There is borderline global hypokinesis of the left ventricle. Right Ventricle * The right ventricular cavity size is normal (basal dimension <4.2 cm in right ventricular apical 4-chamber view). * The right ventricular systolic function is normal as assessed by tricuspid annular plane systolic excursion (TAPSE) (normal >1.5 cm). Atria * The left atrium is mildly dilated. * Right atrial size is normal. * The interatrial septum is intact with no evidence for an atrial septal defect. * Injection of contrast documented no interatrial shunt. Mitral Valve * The mitral valve is normal in structure and function. Tricuspid Valve * The tricuspid valve is normal in structure and function. Aortic Valve * The aortic valve is trileaflet. * Aortic valve sclerosis mild, without significant aortic valvular stenosis. * There is no significant aortic regurgitation. Pulmonic Valve * The pulmonary valve is not well seen, but the Doppler examination is normal without significant regurgitation or stenosis. Great Vessels * The aortic root is normal size. Pericardium/Pleural * There is no pericardial effusion. Left Ventricular Diastolic Function * Grade I diastolic dysfunction, (abnormal relaxation pattern). MMode 2D Measurements and Calculations IVSd 1.6 cm IVSs 1.7 cm LVIDd 4.6 cm LVIDs 3.8 cm LVPWd 1.3 cm LVPWs 1.5 cm IVS/LVPW 1.2 FS 18.5 % EDV(Teich) 98.9 ml ESV(Teich) 60.9 ml EF(Teich) 38.4 % EDV(cubed) 99.4 ml ESV(cubed) 53.7 ml EF(cubed) 46.0 % % IVS thick 10.4 % % LVPW thick 12.9 % LV mass(C)d 274.3 grams LV mass(C)dI 127.7 grams/m\S\2 LV mass(C)s 243.1 grams LV mass(C)sI 113.1 grams/m\S\2 SV(Teich) 38.0 ml SI(Teich) 17.7 ml/m\S\2 SV(cubed) 45.7 ml SI(cubed) 21.3 ml/m\S\2 Ao root diam 3.5 cm Ao root area 9.5 cm\S\2 ACS 2.1 cm LA dimension 4.8 cm LA/Ao 1.4 LVOT diam 2.2 cm LVOT area 3.7 cm\S\2 LVAd ap4 43.0 cm\S\2 LVLd ap4 8.6 cm EDV(MOD-sp4) 176.2 ml EDV(sp4-el) 182.9 ml LVAs ap4 31.2 cm\S\2 LVLs ap4 7.7 cm ESV(MOD-sp4) 103.1 ml ESV(sp4-el) 106.9 ml EF(MOD-sp4) 41.5 % EF(sp4-el) 41.6 % LVAd ap2 35.2 cm\S\2 LVLd ap2 8.0 cm EDV(MOD-sp2) 130.6 ml EDV(sp2-el) 130.7 ml LVAs ap2 24.2 cm\S\2 LVLs ap2 7.7 cm ESV(MOD-sp2) 65.6 ml ESV(sp2-el) 64.6 ml EF(MOD-sp2) 49.8 % EF(sp2-el) 50.6 % LVLd %diff -6.48 % EDV(MOD-bp) 148.6 ml LVLs %diff -0.21 % ESV(MOD-bp) 81.2 ml EF(MOD-bp) 45.3 % SV(MOD-sp4) 73.1 ml SI(MOD-sp4) 34.0 ml/m\S\2 SV(MOD-sp2) 65.0 ml SI(MOD-sp2) 30.2 ml/m\S\2 SV(MOD-bp) 67.3 ml SI(MOD-bp) 31.3 ml/m\S\2 SV(sp4-el) 76.1 ml SI(sp4-el) 35.4 ml/m\S\2 SV(sp2-el) 66.1 ml SI(sp2-el) 30.7 ml/m\S\2 Doppler Measurements and Calculations MV E max jairon 88.4 cm/sec MV A max jairon 129.4 cm/sec MV E/A 0.68 MV P1/2t max jairon 102.7 cm/sec MV P1/2t 78.6 msec MVA(P1/2t) 2.8 cm\S\2 MV dec slope 382.4 cm/sec\S\2 MV dec time 0.25 sec Ao V2 max 118.1 cm/sec Ao max PG 5.6 mmHg Ao max PG (full) 1.9 mmHg BUTCH(V,A) 3.0 cm\S\2 BUTCH(V,D) 3.0 cm\S\2 LV V1 max PG 3.6 mmHg LV V1 max 95.4 cm/sec MR max jairon 565.6 cm/sec MR max PG 128.0 mmHg PA V2 max 73.3 cm/sec PA max PG 2.2 mmHg
--- NOTE | 2017-07-04 11:25 | DIAGNOSTIC IMAGING REPORT ---
ULTRASOUND OF THE CAROTID ARTERIES CLINICAL HISTORY: Dysarthria. Dysphagia. COMPARISON STUDY: CT of the neck dated 07/03/2017 TECHNIQUE: Real-time, grayscale, and color Doppler sonography of the carotid arteries is performed. Images are reviewed in the transverse and longitudinal planes. FINDINGS: Blood pressure in the right arm measures 172/86 and blood pressure in the left arm measures 155/96. The carotid arteries are patent bilaterally and demonstrate antegrade flow. There is mild atherosclerotic plaque seen bilaterally. Normal doppler arterial waveforms are seen throughout. Velocity measurements are listed below. 0.7 Common carotid peak systolic velocity (cm/sec): RIGHT: 70 LEFT: 78 ICA proximal peak systolic velocity (cm/sec): RIGHT: 45 LEFT: 47 ICA mid peak systolic velocity (cm/sec): RIGHT: 71 LEFT: 40 ICA distal peak systolic velocity (cm/sec): RIGHT: 66 LEFT: 53 ICA/CC peak systolic ratio: RIGHT: 1.0 LEFT: 0.7 Antegrade flow was shown in the vertebral arteries. The external carotid arteries are patent. IMPRESSION: 1. There is no sonographic evidence of hemodynamically significant stenosis in the right or left carotid arterial system. 2. Antegrade flow is shown in the vertebral arteries. Electronically signed by: Jason Camacho M.D. 07/04/2017 11:24 AM Dictated Date/Time: 07/04/2017 11:23 AM
--- NOTE | 2017-07-04 11:26 | DIAGNOSTIC IMAGING REPORT ---
ULTRASOUND BILATERAL LOWER EXTREMITY VENOUS CLINICAL HISTORY: Leg swelling. COMPARISON STUDY: No priors. TECHNIQUE: Real-time, grayscale, and color Doppler sonography of the deep veins of the right and left lower extremity was performed from the inguinal crease to the calf. Compression and augmentation were utilized. FINDINGS: There is no sonographic evidence of deep venous thrombosis identified in the right or left lower extremity. The common femoral, superficial femoral, and popliteal veins are patent and normally compressible bilaterally. The greater saphenous vein and the profunda femoris vein at the junction with the common femoral vein are clear in both legs. The visualized calf veins are patent bilaterally. IMPRESSION: There is no sonographic evidence of deep venous thrombosis identified in the right or left lower extremity. Electronically signed by: Jason Camacho M.D. 07/04/2017 11:25 AM Dictated Date/Time: 07/04/2017 11:24 AM
[2017-07-04] MEDS: MEMANTINE 10 MG TAB PO SCH ×2 (12:38→20:53)
[2017-07-04] MEDS: CEROVITE ADV FORMULA TAB PO SCH ×2 (12:39→20:53)
[2017-07-04] MEDS: MULTIVITAMIN TAB PO SCH (12:39)
[2017-07-04] MEDS: ASPIRIN 81 MG ECTAB PO SCH (12:39)
[2017-07-04] MEDS: MIRTAZAPINE TAB 15 MG TAB PO SCH (20:53)
[2017-07-04] MEDS: LISINOPRIL 2.5 MG TAB PO SCH (20:54)
--- NOTE | 2017-07-04 21:31 | Progress Note ---
Medicine Progress Note Date & Time of Visit: Jul 04, 2017 at 15:00 . Subjective Admitted with dysarthria. Patient feels that his speech is back to baseline; he attributes the dysarthria to problems with dentures as well as an enlarging hemangioma involving his upper lip. No headache or focal neurologic symptoms. No chest pain. No cough or shortness of breath. No nausea, vomiting, diarrhea. . Objective Last 8 Hrs Date Time Temp Pulse Resp B/P (MAP) Pulse Ox O2 Delivery O2 Flow Rate FiO2 07/04/17 20:00 97 Room Air 07/04/17 19:18 36.5 86 20 152/82 (105) 97 Room Air 07/04/17 16:00 98 Room Air 07/04/17 15:45 36.6 84 24 159/91 (113) 98 Room Air 07/04/17 14:02 99 Room Air Physical Exam: General- sitting in chair, no distress ENT- large hemangioma right upper lip Lungs- clear to auscultation; no respiratory distress Cardiovascular- RRR; no gallop; no JVD; no pretibial edema Abdomen- + bowel sounds, soft, nontender Extremities- no cyanosis; no calf tenderness Neuro- alert, oriented Skin- warm & dry . Laboratory Results: Last 24 Hours Test 07/03/17 22:05 07/04/17 05:59 Sodium Level 134 mmol/L 134 mmol/L White Blood Count 15.11 K/uL Red Blood Count 4.61 M/uL Hemoglobin 13.9 g/dL Hematocrit 40.4 % Mean Corpuscular Volume 87.6 fL Mean Corpuscular Hemoglobin 30.2 pg Mean Corpuscular Hemoglobin Concent 34.4 g/dl Platelet Count 344 K/uL Mean Platelet Volume 9.2 fL Neutrophils (%) (Auto) 72.8 % Lymphocytes (%) (Auto) 15.6 % Monocytes (%) (Auto) 8.5 % Eosinophils (%) (Auto) 2.1 % Basophils (%) (Auto) 0.5 % Neutrophils # (Auto) 11.00 K/uL Lymphocytes # (Auto) 2.35 K/uL Monocytes # (Auto) 1.29 K/uL Eosinophils # (Auto) 0.31 K/uL Basophils # (Auto) 0.08 K/uL RDW Standard Deviation 44.5 fL RDW Coefficient of Variation 13.9 % Immature Granulocyte % (Auto) 0.5 % Immature Granulocyte # (Auto) 0.08 K/uL Potassium Level 4.2 mmol/L Chloride Level 102 mmol/L Carbon Dioxide Level 26 mmol/L Anion Gap 6.0 mmol/L Blood Urea Nitrogen 12 mg/dl Creatinine 0.94 mg/dl Est Creatinine Clear Calc Drug Dose 72.0 ml/min Estimated GFR () 90.3 Estimated GFR (Non- 77.9 BUN/Creatinine Ratio 12.6 Random Glucose 109 mg/dl Calcium Level 8.7 mg/dl Triglycerides Level 65 mg/dl Cholesterol Level 117 mg/dl HDL Cholesterol 41 mg/dl LDL Cholesterol, Calculated 63 mg/dl VLDL Cholesterol, Calculated 13 mg/dl Cholesterol/HDL Ratio 2.9 Assessment & Plan DYSARTHRIA Suspect that dysarthria secondary to mechanical issues related to hemangioma and dentures. No acute findings on neuroimaging. Speech therapy consulted. CEREBROVASCULAR DISEASE MRI demonstrated old lacunar infarcts within the left thalamus. Receiving aspirin. LDL-c = 63. No need for lipid-lowering therapy. HYPERTENSION Continue lisinopril. DEMENTIA Continue memantine. SCHIZOAFFECTIVE DISORDER Continue usual medications. VTE PROPHYLAXIS No anticoagulants due to reported possible bleeding from hemangioma. SCD's. Ambulate. DISPOSITION Expected return to [facility] under the care of Dr. Chambers. . Current Inpatient Medications: Current Inpatient Medications Medications (Trade) Dose Ordered Sig/Mickie Route Start Time Stop Time Status Last Admin Dose Admin Miscellaneous (Iv Fluids Completed) 1 ea PRN PRN N/A 07/03/17 20:00 07/03/18 19:59 07/04/17 14:40 1 EA Acetaminophen (Tylenol Tab) 650 mg Q4H PRN PO 07/03/17 20:30 08/02/17 20:29 Nitroglycerin (Nitrostat Tab) 0.4 mg UD PRN SL 07/03/17 20:30 08/02/17 20:29 Miscellaneous Information (Pharmacist Discharge Med Rec Consult) 1 ea UD PRN N/A 07/03/17 20:30 08/02/17 20:29 Benztropine Mesylate (Cogentin Tab) 1.5 mg BID PRN PO 07/03/17 20:30 08/02/17 20:29 Lorazepam (Ativan Tab) 0.5 mg TID PRN PO 07/03/17 20:30 08/02/17 20:29 Memantine (Namenda Tab) 10 mg BID PO 07/03/17 21:00 08/02/17 20:59 07/04/17 20:53 10 MG Mirtazapine (Remeron Tab) 30 mg HS PO 07/03/17 21:00 08/02/17 20:59 07/04/17 20:53 30 MG Multivitamins (Multivitamin Tab) 1 tab QAM PO 07/04/17 09:00 08/03/17 08:59 07/04/17 12:39 1 TAB Multivitamins/ Minerals (Multivitamin W/ Minerals Tab) 1 tab BID PO 07/03/17 21:00 08/02/17 20:59 07/04/17 20:53 1 TAB Polyethylene (Miralax Powder Packet) 17 gm Q48H PO 07/04/17 09:00 08/03/17 08:59 07/04/17 12:38 17 GM Oxycodone/ Acetaminophen (Percocet 5-325mg Tab) 1 tab Q6H PRN PO 07/03/17 20:30 07/17/17 20:29 Prochlorperazine Edisylate 5 mg/ Syringe 5 ml @ 5 mls/min Q6H PRN IV 07/03/17 20:30 08/02/17 20:29 Lisinopril (Zestril Tab) 2.5 mg HS PO 07/03/17 21:00 08/02/17 20:59 07/04/17 20:54 2.5 MG Aspirin (Ecotrin Tab) 81 mg QAM PO 07/04/17 09:00 08/03/17 08:59 07/04/17 12:39 81 MG
[2017-07-05 06:11] LABS: BASO % 0.6 %; BASO ABS # 0.08 K/uL (0-0.2); EOS % 1.7 %; EOS ABS # 0.23 K/uL (0-0.5); HEMATOCRIT 37.9 % (42-52); HEMOGLOBIN 13.2 g/dL (14.0-18.0); IG# 0.05 K/uL (0.00-0.02); LYMPH % 12.8 %; LYMPH ABS # 1.78 K/uL (1.2-3.4); MEAN CELL VOLUME 87.3 fL (80-100); MEAN CORPUSCULAR HEMOGLOBIN 30.4 pg (25-34); MEAN CORPUSCULAR HGB CONC 34.8 g/dl (32-36); MEAN PLATELET VOLUME 8.8 fL (7.4-10.4); MONO % 7.9 %; NEUT % 76.6 %; NEUT ABS # 10.68 K/uL (1.4-6.5); PLATELET COUNT 306 K/uL (130-400); RED CELL DISTRIBUTION WIDTH CV 13.7 % (11.5-14.5); WHITE BLOOD COUNT 13.92 K/uL (4.8-10.8)
[2017-07-05 07:07] VITALS: BP 177/95; PULSE 80; TEMP 36.4; O2SAT 97
[2017-07-05] MEDS: MEMANTINE 10 MG TAB PO SCH (08:22)
[2017-07-05] MEDS: MULTIVITAMIN TAB PO SCH (08:22)
[2017-07-05] MEDS: ASPIRIN 81 MG ECTAB PO SCH (08:22)
[2017-07-05] MEDS: CEROVITE ADV FORMULA TAB PO SCH (08:22)
[2017-07-05 11:51] VITALS: BP 157/80; PULSE 114; TEMP 36.5; O2SAT 93
[2017-07-05 15:38] VITALS: BP 163/92; PULSE 104; TEMP 36.6; O2SAT 97
--- NOTE | 2017-07-05 15:42 | Progress Note ---
Medicine Progress Note Date & Time of Visit: Jul 05, 2017 at 15:42 . Subjective Patient reports that dysarthria is at baseline. No other concerns or problems. He would like to return to [facility] today. . Objective Last 8 Hrs Date Time Temp Pulse Resp B/P (MAP) Pulse Ox O2 Delivery O2 Flow Rate FiO2 07/05/17 15:38 36.6 104 18 163/92 (115) 97 07/05/17 12:00 Room Air 07/05/17 11:51 36.5 114 18 157/80 (105) 93 07/05/17 08:00 Room Air Physical Exam: General- sitting in chair, no distress ENT- large hemangioma right upper lip Lungs- clear to auscultation; no respiratory distress Cardiovascular- RRR; no gallop; no JVD; no pretibial edema Abdomen- + bowel sounds, soft, nontender Extremities- no cyanosis; no calf tenderness Neuro- alert, oriented; PERRL, EOMI; dysarthric; motor strength upper and lower extremities intact Skin- warm & dry . Laboratory Results: Last 24 Hours Test 07/05/17 05:51 White Blood Count 13.92 K/uL Red Blood Count 4.34 M/uL Hemoglobin 13.2 g/dL Hematocrit 37.9 % Mean Corpuscular Volume 87.3 fL Mean Corpuscular Hemoglobin 30.4 pg Mean Corpuscular Hemoglobin Concent 34.8 g/dl Platelet Count 306 K/uL Mean Platelet Volume 8.8 fL Neutrophils (%) (Auto) 76.6 % Lymphocytes (%) (Auto) 12.8 % Monocytes (%) (Auto) 7.9 % Eosinophils (%) (Auto) 1.7 % Basophils (%) (Auto) 0.6 % Neutrophils # (Auto) 10.68 K/uL Lymphocytes # (Auto) 1.78 K/uL Monocytes # (Auto) 1.10 K/uL Eosinophils # (Auto) 0.23 K/uL Basophils # (Auto) 0.08 K/uL RDW Standard Deviation 44.0 fL RDW Coefficient of Variation 13.7 % Immature Granulocyte % (Auto) 0.4 % Immature Granulocyte # (Auto) 0.05 K/uL Assessment & Plan DYSARTHRIA Suspect that dysarthria secondary to mechanical issues related to hemangioma and dentures. No acute findings on neuroimaging. Speech therapy consulted. Follow up with dentist regarding dentures recommended. Follow-up with ENT at [facility] regarding large hemangioma upper lip recommended. CEREBROVASCULAR DISEASE MRI demonstrated old lacunar infarcts within the left thalamus. Receiving aspirin. LDL-c = 63. No need for lipid-lowering therapy. HYPERTENSION Continue lisinopril. DEMENTIA Continue memantine. SCHIZOAFFECTIVE DISORDER Continue usual medications. VTE PROPHYLAXIS No anticoagulants due to reported possible bleeding from hemangioma. SCD's. Ambulate. DISPOSITION Returning to [facility] under the care of Dr. Chambers. . Current Inpatient Medications: Current Inpatient Medications Medications (Trade) Dose Ordered Sig/Mickie Route Start Time Stop Time Status Last Admin Dose Admin Miscellaneous (Iv Fluids Completed) 1 ea PRN PRN N/A 07/03/17 20:00 07/03/18 19:59 07/04/17 14:40 1 EA Acetaminophen (Tylenol Tab) 650 mg Q4H PRN PO 07/03/17 20:30 08/02/17 20:29 Nitroglycerin (Nitrostat Tab) 0.4 mg UD PRN SL 07/03/17 20:30 08/02/17 20:29 Miscellaneous Information (Pharmacist Discharge Med Rec Consult) 1 ea UD PRN N/A 07/03/17 20:30 08/02/17 20:29 Benztropine Mesylate (Cogentin Tab) 1.5 mg BID PRN PO 07/03/17 20:30 08/02/17 20:29 Lorazepam (Ativan Tab) 0.5 mg TID PRN PO 07/03/17 20:30 08/02/17 20:29 07/05/17 09:47 0.5 MG Memantine (Namenda Tab) 10 mg BID PO 07/03/17 21:00 08/02/17 20:59 07/05/17 08:22 10 MG Mirtazapine (Remeron Tab) 30 mg HS PO 07/03/17 21:00 08/02/17 20:59 07/04/17 20:53 30 MG Multivitamins (Multivitamin Tab) 1 tab QAM PO 07/04/17 09:00 08/03/17 08:59 07/05/17 08:22 1 TAB Multivitamins/ Minerals (Multivitamin W/ Minerals Tab) 1 tab BID PO 07/03/17 21:00 08/02/17 20:59 07/05/17 08:22 1 TAB Polyethylene (Miralax Powder Packet) 17 gm Q48H PO 07/04/17 09:00 08/03/17 08:59 07/04/17 12:38 17 GM Oxycodone/ Acetaminophen (Percocet 5-325mg Tab) 1 tab Q6H PRN PO 07/03/17 20:30 07/17/17 20:29 Prochlorperazine Edisylate 5 mg/ Syringe 5 ml @ 5 mls/min Q6H PRN IV 07/03/17 20:30 08/02/17 20:29 Lisinopril (Zestril Tab) 2.5 mg HS PO 07/03/17 21:00 08/02/17 20:59 07/04/17 20:54 2.5 MG Aspirin (Ecotrin Tab) 81 mg QAM PO 07/04/17 09:00 08/03/17 08:59 07/05/17 08:22 81 MG
[2017-07-05] MEDS ORDERED: ASPI-428 PO (15:44)
--- NOTE | 2017-07-05 15:55 | Discharge Instructions ---
Discharge Instructions Date of Service Jul 05, 2017. Admission Reason for Admission: trouble speaking . Discharge Discharge Diagnosis / Problem: trouble speaking- no sign of new stroke Discharge Goals Goal(s): Improve function, Improve disease control Activity Recommendations Activity Limitations: resume your previous activity . Instructions / Follow-Up Instructions / Follow-Up APPOINTMENTS: Dr. Chambers at [facility]. [facility] [place] You will be notified regarding follow-up appointment for growth on your lip. Please reschedule appointment to see your dentist regarding your dentures. OTHER INSTRUCTIONS: It appears that your difficulty speaking is related to the growth on your lip and problems with your dentures. MRI showed an old small stroke. Take coated aspirin (Ecotrin) 81 mg daily to help prevent strokes in the future. Seek medical attention if you have: * temperature above 101 * chest pain or trouble breathing * abdominal pain, nausea, vomiting * diarrhea, dark stools or bloody stools * headache, changes of vision, trouble talking, weakness of arms or legs * any unanswered questions or concerns Call 911 if symptoms are severe. Call if you have any questions or problems. My cell # is [phone]. You can also reach a [facility] hospitalist on duty at [facility] 24 hours a day by calling [phone]. Please take good care of yourself. Denys Ruiz . Risk Factors for Stroke: You can reduce your chances of stroke by working with your medical provider to adopt a healthy lifestyle. Some specific ways to lower your chance of stroke are: * If you are a smoker, now is the time to stop smoking cigarettes * If you are diabetic, improve the control of your blood sugars * Avoid excessive amounts of alcohol * Control high blood pressure * Lose weight if you are overweight * Be sure to lead an active lifestyle * Eat a healthy diet low in salt, cholesterol and fat You should know about other risk factors for stroke that you are unable to control. These include: * Age 55 years or older * Male gender * Certain racial groups: , or / * Family History of Stroke, Mini stroke or Heart Attack * Sickle Cell Disease Follow Up: It is important for you to keep your follow up appointments with your medical provider. Current Hospital Diet Patient's current hospital diet: AHA Diet (Heart Healthy) Discharge Diet Recommended Diet: AHA Diet (Heart Healthy) Pending Studies Studies pending at discharge: no Laboratory Results Lipid Panel Test 07/04/17 05:59 Range/Units Triglycerides Level 65 0-150 mg/dl Cholesterol Level 117 0-200 mg/dl HDL Cholesterol 41 mg/dl Cholesterol/HDL Ratio 2.9 LDL Cholesterol, Calculated 63 mg/dl Medical Emergencies . Who to Call and When: Medical Emergencies: Call 911 immediately if you experience any of the following warning signs and symptoms of Stroke: * Sudden numbness or weakness of the face, arm or leg, especially on one side of the body * Sudden confusion, trouble speaking or understanding * Sudden trouble seeing in one or both eyes * Sudden trouble walking, dizziness, loss of balance or coordination * Sudden severe headache with no cause Do not delay calling 911 if you experience any warning signs or symptoms of a stroke. Delay in seeking medical attention may affect what treatments can be given to you. . Non-Emergent Contact Non-Emergency issues call your: Primary Care Provider, Hospital Doctor . . "Provider Documentation" section prepared by Denys Ruiz. . Stroke Core Measures Reason no t-PA for Stroke: Treatment not indicated Reason no antithrom by day 2: Treatment provided - N/A Reason no antithrom at D/C: Treatment provided - N/A Reason no statin at D/C: Treatment provided - N/A Reason no anticoag w/a fib: Treatment not indicated
[2017-07-05] MEDS ORDERED: LPT20 PO (15:56)
[2017-07-05 16:00] VITALS: BP 163/92; PULSE 104; TEMP 36.6; O2SAT 97
[2017-07-05 16:20] VITALS: BP 163/92; PULSE 104; TEMP 36.6; O2SAT 97
--- NOTE | 2017-07-06 20:51 | Discharge Summary ---
Discharge Summary Date of Service Jul 06, 2017. Discharge Summary Admission Date: Jul 03, 2017 at 19:39 Discharge Date: Jul 05, 2017 Discharge Disposition: Personal care Principal Diagnosis: Dysarthria . Secondary Diagnoses/Problems: CHRONIC AND RESOLVED MEDICAL PROBLEMS Hypertension Cerebrovascular disease Dementia Schizoaffective disorder . Procedures: CT head MRI brain CT neck MRA brain Venous duplex lower extremities Carotid duplex Echocardiogram PT OT GROUNDS PERSON . Medication Reconciliation New Medications: Aspirin (Ecotrin Low Strength) 81 Mg Tab 81 MG PO DAILY, #30 TAB No prescription necessary. Atorvastatin (Lipitor) 20 Mg Tab 20 MG PO DAILY, #30 TAB 5 Refills Continued Medications: Acetaminophen (Tylenol) 325 Mg Tab 650 MG PO Q4 PRN for Pain, TAB Artificial Tear Solution (Artificial Tears) 1 Valarie Valarie 1 DROP OPB BID Ascorbic Acid (Ascorbic Acid) 500 Mg Tab 500 MG PO QAM, TAB Benztropine Mesylate (Cogentin) 1 Mg Tab 1.5 MG PO BID PRN for Muscle Spasms Biotin (Biotin) 1,000 Mcg Tab 1000 MCG PO TID Cyanocobalamin (Vitamin B12 500MCG) 500 Mcg Tab 125 MCG PO QAM, TAB Lisinopril (Lisinopril) 20 Mg Tab 20 MG PO QAM Loperamide Hcl (Anti-Diarrheal) 2 Mg Cap 2 MG PO Q4 PRN for Diarrhea Lorazepam (Ativan) 0.5 Mg Tab 0.5 MG PO TID PRN for Anxiety/Agitation, TAB Magnesium Hydroxide (Milk Of Magnesia) 30 Ml Susp 30 ML PO DAILY PRN for Constipation, ML Memantine (Namenda) 10 Mg Tab 10 MG PO BID, 0 Refills Mirtazapine (Remeron) 30 Mg Tab 30 MG PO HS, TAB Multiple Vitamins W/ Minerals (Preservision Areds 2) 1 Cap Cap 1 CAP PO BID Multivitamin (Multivitamin) Tab 1 TAB PO QAM, TAB Polyethylene Glycol 3350 (Miralax) 1 Pow Pow 17 GM PO Q2D, #255 GM Pyridoxine (Vitamin B6) 100 Mg Tab 50 MG PO QAM, 0 Refills Simethicone (Gas Relief) 80 Mg Chw 80 MG PO QID Admission Information HPI (per Admitting provider): History obtained from patient, detention staff, records. Patient is a fair historian. Medical history significant for mood disorder, dementia, schizoaffective disorder as per records, hypertension, chronic upper lip hemangioma, past tobacco abuse. Recent confinement last 2014 for hyponatremia and encephalopathy. As per records, patient noted difficulty talking yesterday. He thinks it might be his chronic right upper lip hemangioma which has slowly grown over the years, some bleeding yesterday as per patient. As per detention staff, patient noted to have trouble talking last night, lip hemangioma looked the same as far as size to them. No witnessed bleeding except for a chocolate stain on patient's mouth as per staff. Patient denies headache, chest pain, shortness of breath. Admits to some bilateral leg swelling. Patient brought to the Emergency Room. . Physical Exam (per Admitting): VITAL SIGNS: Blood pressure was noted to be 177/88, pulse rate noted to be 77, RR 14, temperature 36.7, sats 96 on room air. GENERAL: Noted to be slightly uncomfortable. No respiratory distress. unkempt, coherent. Dysarthric SKIN: Normal color, warm. HEENT: Facial symmetry, pink palpebral conjunctivae. No ptosis. Dry tongue surface w/ brown discoloration (?chocolate), No obvious bleeding lesions ; right upper lip hemangioma noted extending to right buccal mucosa w/o obvious bleeding, nontender NECK: Supple, nontender. CHEST: Decreased breath sounds. No tenderness. HEART: Regular rate and rhythm, no murmur. ABDOMEN: Some distention, nontender. EXTREMITIES: No edema noted. No gross deformities. No tenderness. NEUROLOGIC: Coherent. No gross focality except for dysarthria. Facial symmetry . Hospital Course DYSARTHRIA Patient referred to ED for evaluation of dysarthria that seem to be worse than baseline. No acute findings on neuroimaging. Speech therapy consulted. Suspect that dysarthria secondary to mechanical issues related to hemangioma and dentures. Follow up with dentist regarding dentures recommended. Follow-up with ENT at [facility] regarding large hemangioma upper lip recommended. CEREBROVASCULAR DISEASE MRI demonstrated old lacunar infarcts within the left thalamus. Receiving aspirin. LDL-c = 63. No need for lipid-lowering therapy. HYPERTENSION Continue lisinopril. DEMENTIA Continue memantine. SCHIZOAFFECTIVE DISORDER Continue usual medications. VTE PROPHYLAXIS No anticoagulants due to reported possible bleeding from hemangioma. SCD's. Ambulate. DISPOSITION Returning to [facility] under the care of Dr. Chambers. . Discharge Instructions Date of Service Jul 05, 2017. Admission Reason for Admission: trouble speaking . Discharge Discharge Diagnosis / Problem: trouble speaking- no sign of new stroke Discharge Goals Goal(s): Improve function, Improve disease control Activity Recommendations Activity Limitations: resume your previous activity . Instructions / Follow-Up Instructions / Follow-Up APPOINTMENTS: Dr. Chambers at [facility]. [facility] [place] You will be notified regarding follow-up appointment for growth on your lip. Please reschedule appointment to see your dentist regarding your dentures. OTHER INSTRUCTIONS: It appears that your difficulty speaking is related to the growth on your lip and problems with your dentures. MRI showed an old small stroke. Take coated aspirin (Ecotrin) 81 mg daily to help prevent strokes in the future. Seek medical attention if you have: * temperature above 101 * chest pain or trouble breathing * abdominal pain, nausea, vomiting * diarrhea, dark stools or bloody stools * headache, changes of vision, trouble talking, weakness of arms or legs * any unanswered questions or concerns Call 911 if symptoms are severe. Call if you have any questions or problems. My cell # is [phone]. You can also reach a [facility] hospitalist on duty at [facility] 24 hours a day by calling [phone]. Please take good care of yourself. Denys Ruiz . Risk Factors for Stroke: You can reduce your chances of stroke by working with your medical provider to adopt a healthy lifestyle. Some specific ways to lower your chance of stroke are: * If you are a smoker, now is the time to stop smoking cigarettes * If you are diabetic, improve the control of your blood sugars * Avoid excessive amounts of alcohol * Control high blood pressure * Lose weight if you are overweight * Be sure to lead an active lifestyle * Eat a healthy diet low in salt, cholesterol and fat You should know about other risk factors for stroke that you are unable to control. These include: * Age 55 years or older * Male gender * Certain racial groups: , or / * Family History of Stroke, Mini stroke or Heart Attack * Sickle Cell Disease Follow Up: It is important for you to keep your follow up appointments with your medical provider. Current Hospital Diet Patient's current hospital diet: AHA Diet (Heart Healthy) Discharge Diet Recommended Diet: AHA Diet (Heart Healthy) Pending Studies Studies pending at discharge: no Laboratory Results Lipid Panel Test 07/04/17 05:59 Range/Units Triglycerides Level 65 0-150 mg/dl Cholesterol Level 117 0-200 mg/dl HDL Cholesterol 41 mg/dl Cholesterol/HDL Ratio 2.9 LDL Cholesterol, Calculated 63 mg/dl Medical Emergencies . Who to Call and When: Medical Emergencies: Call 911 immediately if you experience any of the following warning signs and symptoms of Stroke: * Sudden numbness or weakness of the face, arm or leg, especially on one side of the body * Sudden confusion, trouble speaking or understanding * Sudden trouble seeing in one or both eyes * Sudden trouble walking, dizziness, loss of balance or coordination * Sudden severe headache with no cause Do not delay calling 911 if you experience any warning signs or symptoms of a stroke. Delay in seeking medical attention may affect what treatments can be given to you. . Non-Emergent Contact Non-Emergency issues call your: Primary Care Provider, Hospital Doctor . . "Provider Documentation" section prepared by Denys Ruiz. . Stroke Core Measures Reason no t-PA for Stroke: Treatment not indicated Reason no antithrom by day 2: Treatment provided - N/A Reason no antithrom at D/C: Treatment provided - N/A Reason no statin at D/C: Treatment provided - N/A Reason no anticoag w/a fib: Treatment not indicated Additional Copies To Boris Chambers D.O.
== END 2017-07-05 16:23 | disposition home or self-care (01) ==
LOC: EDBD 17:11 → C.EDC 17:13 → C.MED 19:39 → EDBEDREQ 19:44 → ENRESERV 20:16
PROVIDERS: ADMIT Hospitalist; ATTEND Hospitalist
DX: R47.1 Dysarthria and anarthria (principal); R47.02 Dysphasia; I10 Essential (primary) hypertension; F03.90 Unspecified dementia, unspecified severity, without behavioral disturbance, psychotic disturbance, mood disturbance, and anxiety; F20.9 Schizophrenia, unspecified; F31.9 Bipolar disorder, unspecified; Z88.7 Allergy status to serum and vaccine; Z82.49 Family history of ischemic heart disease and other diseases of the circulatory system

== ENCOUNTER 2017-07-07 10:35 | Inpatient (IN) | payer OTHER, MEDICARE ==
[~2017-07-07] VITALS: Ht 172.7 cm; Wt 95.6 kg
[~2017-07-07 10:35] MED LIST changes: +ASPI-428 PO; -LISI20TA3 PO; +LPT20 PO; +LSN20 PO
--- NOTE | 2017-07-07 11:38 | EMERGENCY ROOM VISIT NOTE ---
History Report prepared by Daniel: Elena James Under the Supervision of: Dr. Christo Huerta M.D. First contact with patient: 10:50 Chief Complaint: MENTAL HEALTH EVALUATION Stated Complaint: [facility] History of Present Illness The patient is a 77 year old male who presents to the Emergency Room for a mental health evaluation. The patient comes from [facility]. Per rehabilitation case coordinator , [facility] staff report the patient started to become angry and destructive yesterday afternoon. They report at baseline, the patient is normally pleasant and his behavior yesterday was a "severe" personality change. [facility] staff report the patient said he has been hearing Nixon Titus's voice and her was found outside of [facility] on a bench at 5 am this morning because he was waiting for "Ariela to come pick him up". The patient has not had anything to eat or drink since noon yesterday. They also report he has also been refusing his medications. Per rehabilitation case coordinator, the patient "wrecked" his room this morning which is not normal for him. The patient was given Ativan this morning at [facility] which staff reports "helped somewhat". The patient has a history of schizophrenia and dementia. He reports neck pain beginning this morning. He denies any abdominal pain. Source of History: patient Onset: yesterday Position: other (generalized) Quality: other (mental health evaluation) Associated Symptoms: + neck pain, No abdominal pain Review of Systems See HPI for pertinent positives & negatives. A total of 10 systems reviewed and were otherwise negative. Past Medical & Surgical Medical Problems: (1) Bipolar disorder (2) Cerebrovascular disease (3) Dementia (4) Dysarthria (5) Hemangioma of lip (6) Hypertension (7) Hyponatremia (8) Schizoaffective disorder (9) Seizure Family History Cancer Hypertension Social History Smoking Status: Former Smoker Alcohol Use: none Drug Use: none Marital Status: single Housing Status: assisted living Occupation Status: retired Current/Historical Medications Scheduled Artificial Tear Solution (Artificial Tears), 1 DROP OPB BID Ascorbic Acid (Ascorbic Acid), 500 MG PO QAM Aspirin (Ecotrin Low Strength), 81 MG PO DAILY Atorvastatin (Lipitor), 20 MG PO DAILY Biotin (Biotin), 1,000 MCG PO TID Cyanocobalamin (Vitamin B12 500MCG), 125 MCG PO QAM Fluphenazine Decanoate (Fluphenazine Decanoate), 25 MG IM UD Lisinopril (Lisinopril), 20 MG PO QAM Memantine (Namenda), 10 MG PO BID Mirtazapine (Remeron), 30 MG PO HS Multiple Vitamins W/ Minerals (Preservision Areds 2), 1 CAP PO BID Multivitamin (Multivitamin), 1 TAB PO QAM Polyethylene Glycol 3350 (Miralax), 17 GM PO Q2D Pyridoxine (Vitamin B6), 50 MG PO QAM Simethicone (Gas Relief), 80 MG PO QID Scheduled PRN Acetaminophen (Tylenol), 650 MG PO Q4 PRN for Pain Benztropine Mesylate (Cogentin), 1.5 MG PO BID PRN for Muscle Spasms Loperamide Hcl (Anti-Diarrheal), 2 MG PO Q4 PRN for Diarrhea Lorazepam (Ativan), 0.5 MG PO TID PRN for Anxiety/Agitation Magnesium Hydroxide (Milk Of Magnesia), 30 ML PO DAILY PRN for Constipation Allergies Coded Allergies: Olanzapine (Verified Allergy, Mild, "IT DOES NOT WORK", 07/07/17) Risperidone (Verified Allergy, Unknown, UNKNOWN, 07/07/17) Tricyclic Antidepressants (Verified Allergy, Unknown, ., 07/07/17) Flu Virus Vaccine (Verified Adverse Reaction, Unknown, CAUSES PAIN AT INJECTION SITE, 07/07/17) Physical Exam Vital Signs Date Time Temp Pulse Resp B/P (MAP) Pulse Ox O2 Delivery O2 Flow Rate FiO2 07/07/17 12:21 84 07/07/17 10:46 36.7 95 20 115/64 95 Room Air Physical Exam GENERAL: Awake, alert, well-appearing, in no acute distress HENT: Normocephalic, atraumatic. Oropharynx unremarkable. EYES: Normal conjunctiva. Sclera non-icteric. NECK: Supple. No nuchal rigidity. FROM. No JVD. RESPIRATORY: Clear to auscultation. CARDIAC: Regular rate, normal rhythm. Extremities warm and well perfused. Pulses equal. ABDOMEN: Soft, non-distended. No tenderness to palpation. No rebound or guarding. No masses. RECTAL: Deferred. MUSCULOSKELETAL: Chest examination reveals no tenderness. The back is symmetrical on inspection without obvious abnormality. There is no CVA tenderness to palpation. No joint edema. LOWER EXTREMITIES: Calves are equal size bilaterally and non-tender. No edema. No discoloration. NEURO: Normal sensorium. No sensory or motor deficits noted. SKIN: No rash or jaundice noted. Medical Decision & Procedures ER Provider Diagnostic Interpretation: Radiology results as stated below per my review and radiologist interpretation: CHEST ONE VIEW PORTABLE FINDINGS: Atherosclerosis of aortic arch. Cardiac silhouette enlarged. Stable to slight decrease in posterior basilar prominence. Heterogeneity of lung parenchyma with relative radiolucency of the upper lobes. No hyperinflation. No focal opacity. No large effusion or pneumothorax. Degenerative changes of the thoracic spine. Upper abdomen normal. IMPRESSION: 1. Cardiomegaly. No convincing evidence of acute cardiopulmonary disease. Electronically signed by: Yifan Lind M.D. CT HEAD WITHOUT CONTRAST (CT) FINDINGS: No intra or extra-axial mass lesions are visualized. There is no CT evidence of acute cortical infarction. There is no evidence of midline shift. There is no acute hemorrhage. No calvarial fractures are visualized. There are patchy white matter hypodensities likely on a small vessel basis. There is no evidence of pathologic ventricular dilatation. There is no evidence of acute sinusitis IMPRESSION: No acute intracranial findings Electronically signed by: Atif Campuzano M.D. CT OF THE CERVICAL SPINE CLINICAL HISTORY: Neck pain COMPARISON STUDY: CT scan of the soft tissue neck dated 07/03/2017 CT DOSE: 297.16 mGy.cm TECHNIQUE: CT scan of the cervical spine was performed from the skull base to the thoracic inlet. Images are reviewed in the axial, sagittal, and coronal planes. IV contrast was not administered for this examination. A dose lowering technique was utilized adhering to the principles of ALARA. FINDINGS: The visualized portions of the lung apices reveal no evidence of pneumothorax. The prevertebral soft tissues are normal. No fractures or subluxations are visualized. There are multilevel degenerative changes IMPRESSION: 1. No acute fractures or subluxations identified 2. Multilevel degenerative change 3. No evidence of bony spinal stenosis Electronically signed by: Atif Campuzano M.D. 07/07/2017 2:56 PM Dictated Date/Time: 07/07/2017 2:54 PM Laboratory Results 07/07/17 11:28 Red Blood Count 4.43, Mean Corpuscular Volume 85.8, Mean Corpuscular Hemoglobin 30.5, Mean Corpuscular Hemoglobin Concent 35.5, Mean Platelet Volume 9.0, Neutrophils (%) (Auto) 81.2, Lymphocytes (%) (Auto) 6.9, Monocytes (%) (Auto) 10.8, Eosinophils (%) (Auto) 0.3, Basophils (%) (Auto) 0.2, Neutrophils # (Auto ) 16.36, Lymphocytes # (Auto) 1.39, Monocytes # (Auto) 2.18, Eosinophils # (Auto ) 0.06, Basophils # (Auto) 0.05 07/07/17 11:28 Test 07/07/17 11:28 White Blood Count 20.16 K/uL (4.8-10.8) Red Blood Count 4.43 M/uL (4.7-6.1) Hemoglobin 13.5 g/dL (14.0-18.0) Hematocrit 38.0 % (42-52) Mean Corpuscular Volume 85.8 fL (80-100) Mean Corpuscular Hemoglobin 30.5 pg (25-34) Mean Corpuscular Hemoglobin Concent 35.5 g/dl (32-36) Platelet Count 314 K/uL (130-400) Mean Platelet Volume 9.0 fL (7.4-10.4) Neutrophils (%) (Auto) 81.2 % Lymphocytes (%) (Auto) 6.9 % Monocytes (%) (Auto) 10.8 % Eosinophils (%) (Auto) 0.3 % Basophils (%) (Auto) 0.2 % Neutrophils # (Auto) 16.36 K/uL (1.4-6.5) Lymphocytes # (Auto) 1.39 K/uL (1.2-3.4) Monocytes # (Auto) 2.18 K/uL (0.11-0.59) Eosinophils # (Auto) 0.06 K/uL (0-0.5) Basophils # (Auto) 0.05 K/uL (0-0.2) RDW Standard Deviation 43.1 fL (36.4-46.3) RDW Coefficient of Variation 13.6 % (11.5-14.5) Immature Granulocyte % (Auto) 0.6 % Immature Granulocyte # (Auto) 0.12 K/uL (0.00-0.02) Anion Gap 8.0 mmol/L (3-11) Est Creatinine Clear Calc Drug Dose 36.7 ml/min Estimated GFR () 38.6 Estimated GFR (Non- 33.3 BUN/Creatinine Ratio 13.7 (10-20) Calcium Level 8.8 mg/dl (8.5-10.1) Total Bilirubin 0.8 mg/dl (0.2-1) Direct Bilirubin 0.2 mg/dl (0-0.2) Aspartate Amino Transf (AST/SGOT) 214 U/L (15-37) Alanine Aminotransferase (ALT/SGPT) 66 U/L (12-78) Alkaline Phosphatase 59 U/L (45-117) Total Creatine Kinase 01258 U/L (39-308) Creatine Kinase MB 39.7 ng/ml (0.5-3.6) Creatine Kinase MB Ratio 0.4 (0-3.0) Troponin I 0.141 ng/ml (0-0.045) Total Protein 6.1 gm/dl (6.4-8.2) Albumin 3.1 gm/dl (3.4-5.0) Thyroid Stimulating Hormone (TSH) 1.250 uIu/ml (0.300-4.500) Ethyl Alcohol mg/dL < 3.0 mg/dl (0-3) Labs reviewed by ED physician. Medications Administered Medications (Trade) Dose Ordered Sig/Mickie Route Start Time Stop Time Status Last Admin Dose Admin Sodium Chloride 1,000 ml @ 999 mls/hr Q1H1M STAT IV 07/07/17 12:21 07/07/17 13:21 DC 07/07/17 12:45 999 MLS/HR Sodium Chloride 1,000 ml @ 999 mls/hr Q1H1M STAT IV 07/07/17 12:56 07/07/17 13:56 DC 07/07/17 13:46 999 MLS/HR ECG Per My Interpretation Indication: weakness Rate (beats per minute): 84 Rhythm: normal sinus Findings: T-wave inversion (Inferior), other (no ST depression or elevation) ED Course 1120: Past medical records reviewed. The patient was evaluated in room A6. A complete history and physical examination was performed. 1221: Ordered Sodium Chloride 1000 ml @ 999 mls/hr. 1255: I discussed the patient's case with Lara Alcazar, she has agreed to evaluate the patient for further management and care. 1256: Ordered Sodium Chloride 1000 ml @ 999 mls/hr. Medical Decision Differential diagnosis: Etiologies such as metabolic, infection, hypo/hyperglycemia, electrolyte abnormalities, cardiac sources, intracerebral event, toxicologic, neurologic, as well as others were entertained. This is a 77-year-old male who presents emergency department complaining of change in behavior at his care home. The patient was angry and rambunctious this morning and nursing staff felt that they could not handle him. He was given an additional dose of his psychiatric medicine and sent to the emergency department. Upon arrival to the emergency department the patient is more sedate and is cooperative. He is here for psychiatric clearance however his CK was found to be extremely elevated. His MB and troponin are also elevated however I believe this is in relation to his rhabdomyolysis. CAT scan of the head and C-spine did not show any acute process. Chest x-ray is also normal. The patient was given 2 L of fluid here in the emergency department and discussed with the hospitalist service who agreed to see the patient. Patient was in agreement with the treatment plan. Medication Reconcilliation Current Medication List: was personally reviewed by me Blood Pressure Screening Patient's blood pressure: Normal blood pressure Consults Time Called: 1235 Consulting Physician: Lara Alcazar Returned Call: [phone] I discussed the patient's case with Lara Alcazar, she has agreed to evaluate the patient for further management and care. Impression Primary Impression: Rhabdomyolysis Scribe Attestation The scribe's documentation has been prepared under my direction and personally reviewed by me in its entirety. I confirm that the note above accurately reflects all work, treatment, procedures, and medical decision making performed by me. Departure Information Dispostion Being Evaluated By Hospitalist Referrals LUIS PEREZ (PCP) Patient Instructions My [facility] Problem Qualifiers Primary Impression: Rhabdomyolysis Rhabdomyolysis type: non-traumatic Qualified Codes: M62.82 - Rhabdomyolysis
[2017-07-07 11:47] LABS: BASO % 0.2 %; BASO ABS # 0.05 K/uL (0-0.2); EOS % 0.3 %; EOS ABS # 0.06 K/uL (0-0.5); HEMOGLOBIN 13.5 g/dL (14.0-18.0); IG# 0.12 K/uL (0.00-0.02); LYMPH % 6.9 %; LYMPH ABS # 1.39 K/uL (1.2-3.4); MEAN CELL VOLUME 85.8 fL (80-100); MEAN CORPUSCULAR HEMOGLOBIN 30.5 pg (25-34); MEAN CORPUSCULAR HGB CONC 35.5 g/dl (32-36); MONO % 10.8 %; MONO ABS # 2.18 K/uL (0.11-0.59); NEUT % 81.2 %; NEUT ABS # 16.36 K/uL (1.4-6.5); PLATELET COUNT 314 K/uL (130-400); RED CELL DISTRIBUTION WIDTH CV 13.6 % (11.5-14.5); RED CELL DISTRIBUTION WIDTH SD 43.1 fL (36.4-46.3); WHITE BLOOD COUNT 20.16 K/uL (4.8-10.8)
--- NOTE | 2017-07-07 11:55 | DIAGNOSTIC IMAGING REPORT ---
CHEST ONE VIEW PORTABLE CLINICAL HISTORY: 77 years-old Male presenting with Pt c/o AMS. TECHNIQUE: Portable upright AP view of the chest was obtained. COMPARISON: 07/03/2017. FINDINGS: Atherosclerosis of aortic arch. Cardiac silhouette enlarged. Stable to slight decrease in posterior basilar prominence. Heterogeneity of lung parenchyma with relative radiolucency of the upper lobes. No hyperinflation. No focal opacity. No large effusion or pneumothorax. Degenerative changes of the thoracic spine. Upper abdomen normal. IMPRESSION: 1. Cardiomegaly. No convincing evidence of acute cardiopulmonary disease. Electronically signed by: Yifan Lind M.D. 07/07/2017 11:53 AM Dictated Date/Time: 07/07/2017 11:50 AM
[2017-07-07 12:06] LABS: ALBUMIN 3.1 gm/dl (3.4-5.0); CALCIUM 8.8 mg/dl (8.5-10.1); CREATININE 1.9 mg/dl (0.60-1.40); POTASSIUM 4.1 mmol/L (3.5-5.1)
[2017-07-07] MEDS ORDERED: SODIUM CHLORIDE 0.9% 1000ML 1,000 ML IV STA ×2 (12:21→12:56)
[2017-07-07 12:34] LABS: CKMB 39.7 ng/ml (0.5-3.6); TOTAL PROTEIN 6.1 gm/dl (6.4-8.2)
[2017-07-07] MEDS ORDERED: FLUP10TA PO (12:42)
--- NOTE | 2017-07-07 12:57 | DIAGNOSTIC IMAGING REPORT ---
CT HEAD WITHOUT CONTRAST (CT) CLINICAL HISTORY: Acute change in mental status COMPARISON STUDY: 07/03/2017 TECHNIQUE: Axial CT of the brain is performed from the vertex to the skull base. IV contrast was not administered for this examination. A dose lowering technique was utilized adhering to the principles of ALARA. CT DOSE: 729.78 mGycm FINDINGS: No intra or extra-axial mass lesions are visualized. There is no CT evidence of acute cortical infarction. There is no evidence of midline shift. There is no acute hemorrhage. No calvarial fractures are visualized. There are patchy white matter hypodensities likely on a small vessel basis. There is no evidence of pathologic ventricular dilatation. There is no evidence of acute sinusitis IMPRESSION: No acute intracranial findings Electronically signed by: Atif Campuzano M.D. 07/07/2017 12:56 PM Dictated Date/Time: 07/07/2017 12:55 PM
--- NOTE | 2017-07-07 14:05 | History and Physical ---
History & Physical Date & Time of Service: Jul 07, 2017 at 13:51 Chief Complaint: [facility] Primary Care Physician: Boris Chambers D.O. History of Present Illness Source: patient, clinic records, hospital records Patient is a 77-year-old [facility] resident with a past medical history of cerebrovascular disease, hypertension, possible h/o seizures, dementia and schizoaffective disorder who presents due to AMS and agitation yesterday. Patient was recently admitted from July 03-July 06 for evaluation of dysarthria , without any acute findings on neuro imaging. Per staff at [facility], patient became scattered and agitated yesterday, stating that he was hearing Nixon Titus speak with him. Was found on a bench at 5 PM last evening stating that he is waiting for Nixon Titus to pick him up. Was refusing to eat, drink or take scheduled medications. Also locked himself in his room and refused to allow staff in. This morning, patient was lying on the floor in his room with his belongings very disheveled. Staff then gave 0.5 mg Ativan and 10 mg of fluphenazine in. Patient gets a 25 mg fluphenazine injection every other week, with his most recent injection last week. Follows with the [facility] at [facility], where he was hospitalized once over a year ago. No known seizure history per [facility] and is not on antiepileptics. Patient is currently A&Ox3 and states that he feels "much better" since previous admission. Does not remember any unusual events from yesterday including fall, trauma or seizure. Is not a reliable historian. Denies fever, chills, headache, lightheadedness, visual changes, chest pain, SOB, abdominal pain, nausea, vomiting, dysuria, hematuria, muscle pain or weakness. Denies auditory or visual hallucinations. In the ED, patient found to have a leukocytosis of 20, CK > 10,000 and mild troponin elevation of 0.141. Past Medical/Surgical History Medical Problems: (1) Bipolar disorder Status: Chronic (2) Cerebrovascular disease Status: Chronic (3) Dementia Status: Chronic (4) Dysarthria Status: Chronic (5) Hemangioma of lip Status: Chronic (6) Hypertension Status: Chronic (7) Hyponatremia Status: Chronic (8) Schizoaffective disorder Status: Chronic (9) Seizure Status: Chronic Family History Cancer Hypertension Social History Smoking Status: Former Smoker Drug Use: none Marital Status: single Occupational Status: retired Allergies Coded Allergies: Olanzapine (Verified Allergy, Mild, "IT DOES NOT WORK", 07/07/17) Risperidone (Verified Allergy, Unknown, UNKNOWN, 07/07/17) Tricyclic Antidepressants (Verified Allergy, Unknown, ., 07/07/17) Flu Virus Vaccine (Verified Adverse Reaction, Unknown, CAUSES PAIN AT INJECTION SITE, 07/07/17) Home Medications Scheduled Artificial Tear Solution (Artificial Tears), 1 DROP OPB BID Ascorbic Acid (Ascorbic Acid), 500 MG PO QAM Aspirin (Ecotrin Low Strength), 81 MG PO DAILY Atorvastatin (Lipitor), 20 MG PO DAILY Biotin (Biotin), 1,000 MCG PO TID Cyanocobalamin (Vitamin B12 500MCG), 125 MCG PO QAM Fluphenazine Decanoate (Fluphenazine Decanoate), 25 MG IM UD Lisinopril (Lisinopril), 20 MG PO QAM Memantine (Namenda), 10 MG PO BID Mirtazapine (Remeron), 30 MG PO HS Multiple Vitamins W/ Minerals (Preservision Areds 2), 1 CAP PO BID Multivitamin (Multivitamin), 1 TAB PO QAM Polyethylene Glycol 3350 (Miralax), 17 GM PO Q2D Pyridoxine (Vitamin B6), 50 MG PO QAM Simethicone (Gas Relief), 80 MG PO QID Scheduled PRN Acetaminophen (Tylenol), 650 MG PO Q4 PRN for Pain Benztropine Mesylate (Cogentin), 1.5 MG PO BID PRN for Muscle Spasms Loperamide Hcl (Anti-Diarrheal), 2 MG PO Q4 PRN for Diarrhea Lorazepam (Ativan), 0.5 MG PO TID PRN for Anxiety/Agitation Magnesium Hydroxide (Milk Of Magnesia), 30 ML PO DAILY PRN for Constipation Review of Systems Ten systems reviewed and negative except as noted in the HPI. Physical Exam Vital Signs Date Time Temp Pulse Resp B/P (MAP) Pulse Ox O2 Delivery O2 Flow Rate FiO2 07/07/17 13:37 89 18 162/86 98 Room Air 07/07/17 12:21 84 07/07/17 10:46 36.7 95 20 115/64 95 Room Air General Appearance: WD/WN, no apparent distress Head: normocephalic, atraumatic Eyes: normal inspection, PERRL, sclerae normal ENT: hearing grossly normal, pharynx normal (Dry mucous membranes), + pertinent finding (Right upper lip hemangioma with extension to buccal mucosa. Non-tender) Neck: supple, thyroid normal, trachea midline Respiratory/Chest: chest non-tender, lungs clear, no respiratory distress, no accessory muscle use, + decreased breath sounds Cardiovascular: regular rate, rhythm, no murmur, normal peripheral pulses Abdomen/GI: non tender, soft, no organomegaly Back: normal inspection Extremities/Musculoskelatal: no calf tenderness, normal capillary refill, no pedal edema, normal range of motion, + pertinent finding (Bilateral knee erythema with warmth. No edema. Mild TTP) Neurologic/Psych: no motor/sensory deficits, alert, normal mood/affect, oriented x 3, + pertinent finding (Dysarthric (chronic)) Skin: normal color, warm/dry Diagnostics Laboratory Results Results Past 24 Hours Test 07/07/17 11:28 Range/Units White Blood Count 20.16 4.8-10.8 K/uL Red Blood Count 4.43 4.7-6.1 M/uL Hemoglobin 13.5 14.0-18.0 g/dL Hematocrit 38.0 42-52 % Mean Corpuscular Volume 85.8 80-100 fL Mean Corpuscular Hemoglobin 30.5 25-34 pg Mean Corpuscular Hemoglobin Concent 35.5 32-36 g/dl Platelet Count 314 130-400 K/uL Mean Platelet Volume 9.0 7.4-10.4 fL Neutrophils (%) (Auto) 81.2 % Lymphocytes (%) (Auto) 6.9 % Monocytes (%) (Auto) 10.8 % Eosinophils (%) (Auto) 0.3 % Basophils (%) (Auto) 0.2 % Neutrophils # (Auto) 16.36 1.4-6.5 K/uL Lymphocytes # (Auto) 1.39 1.2-3.4 K/uL Monocytes # (Auto) 2.18 0.11-0.59 K/uL Eosinophils # (Auto) 0.06 0-0.5 K/uL Basophils # (Auto) 0.05 0-0.2 K/uL RDW Standard Deviation 43.1 36.4-46.3 fL RDW Coefficient of Variation 13.6 11.5-14.5 % Immature Granulocyte % (Auto) 0.6 % Immature Granulocyte # (Auto) 0.12 0.00-0.02 K/uL Sodium Level 134 136-145 mmol/L Potassium Level 4.1 3.5-5.1 mmol/L Chloride Level 103 98-107 mmol/L Carbon Dioxide Level 24 21-32 mmol/L Anion Gap 8.0 3-11 mmol/L Blood Urea Nitrogen 26 7-18 mg/dl Creatinine 1.90 0.60-1.40 mg/dl Est Creatinine Clear Calc Drug Dose 36.7 ml/min Estimated GFR () 38.6 Estimated GFR (Non- 33.3 BUN/Creatinine Ratio 13.7 10-20 Random Glucose 104 70-99 mg/dl Calcium Level 8.8 8.5-10.1 mg/dl Total Bilirubin 0.8 0.2-1 mg/dl Direct Bilirubin 0.2 0-0.2 mg/dl Aspartate Amino Transf (AST/SGOT) 214 15-37 U/L Alanine Aminotransferase (ALT/SGPT) 66 12-78 U/L Alkaline Phosphatase 59 45-117 U/L Total Creatine Kinase 13284 39-308 U/L Creatine Kinase MB 39.7 0.5-3.6 ng/ml Creatine Kinase MB Ratio 0.4 0-3.0 Troponin I 0.141 0-0.045 ng/ml Total Protein 6.1 6.4-8.2 gm/dl Albumin 3.1 3.4-5.0 gm/dl Thyroid Stimulating Hormone (TSH) 1.250 0.300-4.500 uIu/ml Ethyl Alcohol mg/dL < 3.0 0-3 mg/dl Microbiology Results 07/07/17 Blood Culture, Ordered Pending 07/07/17 Blood Culture, Ordered Pending Diagnostic Radiology Chest XR: IMPRESSION: 1. Cardiomegaly. No convincing evidence of acute cardiopulmonary disease. Head CT: IMPRESSION: No acute intracranial findings EKG Normal sinus rhythm Left anterior fascicular block Cannot rule out Anterior infarct (cited on or before 07-JUL-2017) T wave abnormality, consider lateral ischemia Abnormal ECG When compared with ECG of 04-JUL-2017 06:30, T wave inversion now evident in Lateral leads Confirmed by ISMAEL DOSHI ([id number]) on 07/07/2017 3:37:59 PM Impression Assessment and Plan Patient is a 77-year-old [facility] resident with a past medical history of cerebrovascular disease, hypertension, possible h/o seizures, dementia and schizoaffective disorder who presents due to AMS and agitation yesterday and was found to have rhabdomyolysis. Acute rhabdomyolysis: -CK > 10,000 -No witness falls but was found lying on the ground this AM, per staff -No known seizure history per [facility] and is not on antiepileptics -Received 10mg injection of fluphenazine yesterday -Given 2L NSS bolus in ED -Will continue NSS at 200ml/hr on floor -Repeat CXR in AM to assess volume status -Trend CK, CKMB, troponin -Hold psych medications, statin Elevated troponin: -Mild troponin elevation of 0.141 -Likely due to rhabdo -No chest pain -New T wave inversion in lateral leads -Continue trending enzymes AMS/hallucinations: resolved -Reported agitation, auditory hallucinations yesterday -H/o schizoaffective disorder, dementia -Now A&Ox3, does not remember yesterday's events -Head CT normal, MRI performed on previous admission without acute events -Psych meds held in setting of rhabdo -Psych consult placed Leukocytosis: -WBC of 20 -Increased from 13.9 on 07/05 -No evidence of infection on CXR, UA -No clinical signs of infection -Likely 2/2 rhabdo -Wbc count downtrending with fluids -Blood cultures pending Dysarthria: -2/2 mechanical issues related to hemangioma, dentures -Negative work up (CT head, MRI brain, CT neck, carotid duplex, echo) on previous admission -Follow up with dentisit, ENT H/o CVA: -Continue aspirin DVT Ppx: SCDs (No anticoagulants due to reported possible bleeding from hemangioma) Code status: FULL PCP: Marciano Dispo: Admitted to telemetry. Discharge planning ordered for return to [facility] once medically appropriate. Patient seen in collaboration with Dr. Moulton. Please see addendum. Attending Note: Patient is a 77 yr male with PMH of dementia and schizoaffective disorder and other problems who was recently discharged from [facility] after being evaluated for dysarthria presents from [facility] with history of altered mental status, agitation since yesterday. Patient doesn't remember the vents at [facility] and has been refusing medications. Patient received Ativan and fluphenazine prior to arrival. He complained of B/L knee pain and was unsure if he fell. History is unreliable. Labs suggestive of Acute renal insufficiency, leukocytosis, elevated troponin and rhabdomyolysis. EKG showed T wave changes in lateral leads but patient denied chest pain. Physical Exam: Vitals signs as noted above General Appearance:Moderately built and nourished, no apparent distress Head: normocephalic, Atraumatic, + Hemangioma on upper lip Eyes: normal inspection, EOMI, PERRL Neck: supple, Trachea midline Respiratory/Chest: Normal breath sounds, CTA Cardiovascular: S1, S2, No murmur Abdomen/GI:Soft, Non tender, Bowel sounds present Extremities/Musculoskelatal:normal inspection, 1+ b/l edema, Knee erythema, tender Neurologic/Psych:AAOX3, grossly no focal neurological deficits Skin:normal color,warm Assessment and Plan: Acute Rhabdomyolysis Acute renal Insufficiency: Likely secondary to dehydration, ??? Fall Fluphenazine could be contributing Continue IV fluids, monitor renal function and CK levels Knee X ray: joint effusion, No fractures PT/OT Elevated Troponin: Likely 2/2 Rhabdo Given EKG changes, Trend cardiac enzymes Check ECHO for wall motion abnormality Encephalopathy: Likely multifactorial Hold Psych meds Psychiatry consulted Leukocytosis: No obvious source of infection Patient has chronic elevation No Abx for now I personally reviewed the record. Patient is interviewed and examined at bedside. Patient's care is coordinated with Lara Burdick PA-C. Please refer to the documentation above for details of patient's presentation and for discussion of other issues. Resuscitation Status VTE Prophylaxis Will order VTE Prophylaxis: Yes
[2017-07-07] MEDS ORDERED: LOPERAMIDE HCL 2 MG CAP PO PRN (14:30)
[2017-07-07] MEDS ORDERED: MAGNESIUM HYDROXIDE SUSP 30 ML UDC PO PRN (14:30)
--- NOTE | 2017-07-07 14:57 | DIAGNOSTIC IMAGING REPORT ---
CT OF THE CERVICAL SPINE CLINICAL HISTORY: Neck pain COMPARISON STUDY: CT scan of the soft tissue neck dated 07/03/2017 CT DOSE: 297.16 mGy.cm TECHNIQUE: CT scan of the cervical spine was performed from the skull base to the thoracic inlet. Images are reviewed in the axial, sagittal, and coronal planes. IV contrast was not administered for this examination. A dose lowering technique was utilized adhering to the principles of ALARA. FINDINGS: The visualized portions of the lung apices reveal no evidence of pneumothorax. The prevertebral soft tissues are normal. No fractures or subluxations are visualized. There are multilevel degenerative changes IMPRESSION: 1. No acute fractures or subluxations identified 2. Multilevel degenerative change 3. No evidence of bony spinal stenosis Electronically signed by: Atif Campuzano M.D. 07/07/2017 2:56 PM Dictated Date/Time: 07/07/2017 2:54 PM
[2017-07-07] MEDS ORDERED: IV FLUIDS COMPLETED PRN (15:15)
[2017-07-07 15:33] VITALS: BP 175/85; PULSE 79; TEMP 36.8; O2SAT 99; Ht 172.7 cm; Wt 95.6 kg
[2017-07-07] MEDS: SODIUM CHLORIDE 0.9% 1000ML 1,000 ML IV SCH ×2 (16:01→21:14)
--- NOTE | 2017-07-07 16:01 | DIAGNOSTIC IMAGING REPORT ---
R KNEE 1 OR 2 VIEWS ROUTINE, L KNEE 1 OR 2 VIEWS ROUTINE CLINICAL HISTORY: r/o fracture, effusion from fall . Bilateral knee pain. COMPARISON STUDY: None. FINDINGS: No fracture or dislocation within the right or left knee. Trace bilateral knee effusions. Mild prepatellar soft tissue swelling. 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 IMPRESSION: Trace bilateral knee effusions. No fracture or dislocation within the right or left knee. Electronically signed by: Yonathan Coppola M.D. 07/07/2017 4:00 PM Dictated Date/Time: 07/07/2017 3:58 PM
[2017-07-07] MEDS: SIMETHICONE 80 MG CHEW PO SCH ×2 (16:49→19:56)
[2017-07-07 17:59] LABS: HEMATOCRIT 38.4 % (42-52); HEMOGLOBIN 13.1 g/dL (14.0-18.0); MEAN CELL VOLUME 87.1 fL (80-100); MEAN CORPUSCULAR HEMOGLOBIN 29.7 pg (25-34); MEAN CORPUSCULAR HGB CONC 34.1 g/dl (32-36); MEAN PLATELET VOLUME 9.1 fL (7.4-10.4); PLATELET COUNT 330 K/uL (130-400); RED CELL DISTRIBUTION WIDTH CV 13.8 % (11.5-14.5); RED CELL DISTRIBUTION WIDTH SD 43.9 fL (36.4-46.3); WHITE BLOOD COUNT 18.08 K/uL (4.8-10.8)
[2017-07-07 18:16] LABS: ALBUMIN 2.9 gm/dl (3.4-5.0); ALT/SGPT 75 U/L (12-78); BLOOD UREA NITROGEN 22 mg/dl (7-18); CALCIUM 8.4 mg/dl (8.5-10.1); CARBON DIOXIDE 25 mmol/L (21-32); CREATININE 1.46 mg/dl (0.60-1.40); GLUCOSE 96 mg/dl (70-99); SODIUM 136 mmol/L (136-145)
[2017-07-07 18:55] LABS: ALKALINE PHOSPHATASE 57 U/L (45-117); AST/SGOT 229 U/L (15-37); CKMB 35.5 ng/ml (0.5-3.6); TOTAL PROTEIN 6.2 gm/dl (6.4-8.2)
[2017-07-07 19:17] VITALS: BP 185/82; PULSE 101; TEMP 36.7; O2SAT 95
[2017-07-07] MEDS ORDERED: LABETALOL HCL IV 5 MG/ML 20ML IV PRN (19:45)
[2017-07-07] MEDS ORDERED: NON-FORMULARY MEDICATION (Biotin 1,000 MCG) PO SCH (21:00)
[2017-07-08] VITALS (12 sets, daily range): BP systolic 139–201; BP diastolic 69–101; PULSE 68–109; TEMP 36.5–37.2; O2SAT 94–99
[2017-07-08 00:47] LABS: CKMB 22.3 ng/ml (0.5-3.6)
[2017-07-08] MEDS: SODIUM CHLORIDE 0.9% 1000ML 1,000 ML IV SCH ×3 (02:00→17:28)
[2017-07-08 06:19] LABS: HEMATOCRIT 36.1 % (42-52); HEMOGLOBIN 12.6 g/dL (14.0-18.0); MEAN CELL VOLUME 87.2 fL (80-100); MEAN CORPUSCULAR HEMOGLOBIN 30.4 pg (25-34); MEAN CORPUSCULAR HGB CONC 34.9 g/dl (32-36); MEAN PLATELET VOLUME 9.1 fL (7.4-10.4); PLATELET COUNT 289 K/uL (130-400); RED CELL DISTRIBUTION WIDTH CV 13.8 % (11.5-14.5); RED CELL DISTRIBUTION WIDTH SD 44.3 fL (36.4-46.3); WHITE BLOOD COUNT 15.36 K/uL (4.8-10.8)
[2017-07-08 06:49] LABS: CALCIUM 8.1 mg/dl (8.5-10.1); CREATININE 1.04 mg/dl (0.60-1.40)
[2017-07-08] MEDS: ASPIRIN 81 MG ECTAB PO SCH (08:09)
[2017-07-08] MEDS: POLYETHYLENE (MIRALAX) 17 GM PACK PO SCH (08:09)
[2017-07-08] MEDS: MULTIVITAMIN TAB PO SCH (08:09)
[2017-07-08] MEDS: SIMETHICONE 80 MG CHEW PO SCH ×4 (08:09→21:28)
[2017-07-08] MEDS: ASCORBIC ACID 500 MG TAB PO SCH (08:10)
[2017-07-08] MEDS: CYANOCOBALAMIN 500 MCG TAB (VIT B-12) PO SCH (08:10)
[2017-07-08] MEDS: PYRIDOXINE HCL 50 MG TAB PO SCH (08:10)
--- NOTE | 2017-07-08 08:38 | DIAGNOSTIC IMAGING REPORT ---
CHEST ONE VIEW PORTABLE CLINICAL HISTORY: assess volume status POSSIBLE FLUID OVERLOAD COMPARISON STUDY: 07/07/2017 FINDINGS: The cardiac and mediastinal contours are normal. There is no evidence of focal pulmonary consolidation. There is no evidence of failure. No pleural effusions are visualized.[ Linear bibasilar opacities are felt to be atelectatic. IMPRESSION: No active disease in the chest. Electronically signed by: Atif Campuzano M.D. 07/08/2017 6:50 AM Dictated Date/Time: 07/08/2017 6:50 AM
[2017-07-08] MEDS ORDERED: LISINOPRIL 20 MG TAB PO SCH (09:00)
[2017-07-08] MEDS ORDERED: MEMANTINE 10 MG TAB PO ONE (09:38)
[2017-07-08] MEDS ORDERED: NITROGLYCERIN 0.4 MG SL PER TAB CHARGE ONE ×2 (10:20→10:27)
[2017-07-08] MEDS ORDERED: NITROGLYCERIN 2% OINTMENT 30GM TUBE EXT SCH (11:00)
[2017-07-08] MEDS ORDERED: NURSING VERBAL MED ORDER ONE (11:15)
[2017-07-08] MEDS ORDERED: AMLODIPINE BESYLATE 5 MG TAB PO ONE (11:20)
--- NOTE | 2017-07-08 11:28 | Progress Note ---
Medicine Progress Note Date & Time of Visit: Jul 08, 2017 at 10:37. Subjective Seen sitting up in bed Alert oriented to person and place Reports chest pain, whole area of his chest, pressure radiating to the right arm Denies shortness of breath nausea palpitations dizziness Reports that he is hearing voices described paranoid voices- saying "Brandon Cline is queer" When inquired about thoughts of harming himself patient said yes And that the voices are telling him to shoot himself with a gun No other symptoms Objective Last 8 Hrs Date Time Temp Pulse Resp B/P (MAP) Pulse Ox O2 Delivery O2 Flow Rate FiO2 07/08/17 08:00 Room Air 07/08/17 07:24 36.6 81 20 159/99 (119) 96 Room Air 07/08/17 06:06 94 139/83 (101) 07/08/17 06:05 86 164/84 (110) 07/08/17 06:03 82 171/83 (112) 07/08/17 04:00 Room Air 07/08/17 03:11 36.7 82 20 161/77 (105) 99 Room Air Physical Exam: General-oriented x 2, not in distress, speaks in sentences with no effort Head- atraumatic Eyes- PERRL, EOMI, anicteric ENT- oropharynx clear Neck- supple, no JVD, no adenopathy, no thyromegaly Lungs- clear breath sounds bilaterally no rales wheezes Heart- regular rhythm; no murmur, normal rate Abdomen- normal bowel sounds, soft, nontender, nondistended Extremities- no pretibial edema, no calf tenderness; peripheral pulses intact Neuro- alert, oriented x 2; mild dysarthria otherwise no gross focal motor or sensory, other neuro deficits Skin- warm & dry Laboratory Results: Last 24 Hours Test 07/07/17 11:28 07/07/17 15:35 07/07/17 17:19 07/07/17 23:37 White Blood Count 20.16 K/uL 18.08 K/uL Red Blood Count 4.43 M/uL 4.41 M/uL Hemoglobin 13.5 g/dL 13.1 g/dL Hematocrit 38.0 % 38.4 % Mean Corpuscular Volume 85.8 fL 87.1 fL Mean Corpuscular Hemoglobin 30.5 pg 29.7 pg Mean Corpuscular Hemoglobin Concent 35.5 g/dl 34.1 g/dl Platelet Count 314 K/uL 330 K/uL Mean Platelet Volume 9.0 fL 9.1 fL Neutrophils (%) (Auto) 81.2 % Lymphocytes (%) (Auto) 6.9 % Monocytes (%) (Auto) 10.8 % Eosinophils (%) (Auto) 0.3 % Basophils (%) (Auto) 0.2 % Neutrophils # (Auto) 16.36 K/uL Lymphocytes # (Auto) 1.39 K/uL Monocytes # (Auto) 2.18 K/uL Eosinophils # (Auto) 0.06 K/uL Basophils # (Auto) 0.05 K/uL RDW Standard Deviation 43.1 fL 43.9 fL RDW Coefficient of Variation 13.6 % 13.8 % Immature Granulocyte % (Auto) 0.6 % Immature Granulocyte # (Auto) 0.12 K/uL Sodium Level 134 mmol/L 136 mmol/L Potassium Level 4.1 mmol/L 4.0 mmol/L Chloride Level 103 mmol/L 105 mmol/L Carbon Dioxide Level 24 mmol/L 25 mmol/L Anion Gap 8.0 mmol/L 7.0 mmol/L Blood Urea Nitrogen 26 mg/dl 22 mg/dl Creatinine 1.90 mg/dl 1.46 mg/dl Est Creatinine Clear Calc Drug Dose 36.7 ml/min 47.3 ml/min Estimated GFR () 38.6 53.0 Estimated GFR (Non- 33.3 45.7 BUN/Creatinine Ratio 13.7 15.3 Random Glucose 104 mg/dl 96 mg/dl Calcium Level 8.8 mg/dl 8.4 mg/dl Total Bilirubin 0.8 mg/dl 0.9 mg/dl Direct Bilirubin 0.2 mg/dl Aspartate Amino Transf (AST/SGOT) 214 U/L 229 U/L Alanine Aminotransferase (ALT/SGPT) 66 U/L 75 U/L Alkaline Phosphatase 59 U/L 57 U/L Total Creatine Kinase 86455 U/L 12197 U/L 7694 U/L Creatine Kinase MB 39.7 ng/ml 35.5 ng/ml 22.3 ng/ml Creatine Kinase MB Ratio 0.4 0.3 Troponin I 0.141 ng/ml 0.111 ng/ml 0.081 ng/ml Total Protein 6.1 gm/dl 6.2 gm/dl Albumin 3.1 gm/dl 2.9 gm/dl Thyroid Stimulating Hormone (TSH) 1.250 uIu/ml Ethyl Alcohol mg/dL < 3.0 mg/dl Urine Color YELLOW Urine Appearance CLEAR Urine pH 6.0 Urine Specific [place] 1.012 Urine Protein NEG Urine Glucose (UA) NEG Urine Ketones NEG Urine Occult Blood 2+ Urine Nitrite NEG Urine Bilirubin NEG Urine Urobilinogen NEG Urine Leukocyte Esterase NEG Urine WBC (Auto) 1-5 /hpf Urine RBC (Auto) 0-4 /hpf Urine Hyaline Casts (Auto) 5-10 /lpf Urine Epithelial Cells (Auto) 10-20 /lpf Urine Bacteria (Auto) NEG Urine Opiates Screen NEG Urine Methadone, Qualitative NEG Urine Barbiturates NEG Urine Phencyclidine (PCP) Level NEG Ur Amphetamine/Methamphetamine NEG MDMA (Ecstasy) Screen NEG Urine Benzodiazepines Screen NEG Urine Cocaine Metabolite NEG Urine Marijuana (THC) NEG Globulin 3.3 gm/dl Albumin/Globulin Ratio 0.9 Test 07/08/17 05:44 07/08/17 10:25 White Blood Count 15.36 K/uL Red Blood Count 4.14 M/uL Hemoglobin 12.6 g/dL Hematocrit 36.1 % Mean Corpuscular Volume 87.2 fL Mean Corpuscular Hemoglobin 30.4 pg Mean Corpuscular Hemoglobin Concent 34.9 g/dl RDW Standard Deviation 44.3 fL RDW Coefficient of Variation 13.8 % Platelet Count 289 K/uL Mean Platelet Volume 9.1 fL Sodium Level 138 mmol/L Potassium Level 4.0 mmol/L Chloride Level 108 mmol/L Carbon Dioxide Level 24 mmol/L Anion Gap 6.0 mmol/L Blood Urea Nitrogen 17 mg/dl Creatinine 1.04 mg/dl Est Creatinine Clear Calc Drug Dose 66.4 ml/min Estimated GFR () 79.9 Estimated GFR (Non- 68.9 BUN/Creatinine Ratio 16.0 Random Glucose 97 mg/dl Calcium Level 8.1 mg/dl Total Creatine Kinase 5547 U/L Date/Time Source Procedure Growth Status 07/07/17 14:42 Blood Blood Culture Pending Received 07/07/17 14:40 Blood Blood Culture Pending Received Assessment & Plan Patient is a 77-year-old [facility] resident with a past medical history of cerebrovascular disease, hypertension, possible h/o seizures, dementia and schizoaffective disorder who presents due to AMS and agitation yesterday and was found to have rhabdomyolysis. Acute rhabdomyolysis: -CPK > 10,000 Discussed with shelter home staff- Sita grimm Patient was noted to be restless yesterday, walking around the room constantly, also crawling on the floor Rhabdomyolysis could be secondary to above -Lipitor was only given once on July 06, 2017 -CPK trending down to 5,000 continue IV fluids Monitor CPK Elevated troponin: - Mild troponin elevation of 0.141--> 0.08 t wave changes in the lateral leads on admission - patient reporting chest pain this morning EKG no signs of acute ischemia repeat troponin ordered - Nitropaste ordered already on Aspirin Statin on hold due to Rhabdo - if BP still elevated, will add amlodipine Cardiology consulted, appreciate the recommendations AMS/hallucinations: resolved -Reported agitation, auditory hallucinations yesterday -H/o schizoaffective disorder, dementia --Further information divided from shelter facilities staff Patient was apparently oriented and pleasant at baseline Since decreasing fluphenazine in May, patient was noted to be progressively more paranoid --Yesterday patient was noted to be paranoid, agitated, uncooperative at the intermediate --Psychiatry service consulted for further recommendations Per psychiatry service, advised to hold off on one-to-one observation pending formal psych evaluation Leukocytosis: -WBC of 20 -Increased from 13.9 on 07/05 -No evidence of infection on CXR, UA -No clinical signs of infection -Likely 2/2 rhabdo -Wbc count downtrending with fluids -Blood cultures pending Dysarthria: -2/2 mechanical issues related to hemangioma, dentures -Negative work up (CT head, MRI brain, CT neck, carotid duplex, echo) on previous admission -Follow up with dentisit, ENT H/o CVA: -Continue aspirin DVT Ppx: SCDs (No anticoagulants due to reported possible bleeding from hemangioma) Code status: FULL PCP: Marciano Dispo: Pending Anticipate return to shelter facility once altered mental status/ behavioral disturbance improves Current Inpatient Medications: Current Inpatient Medications Medications (Trade) Dose Ordered Sig/Mickie Route Start Time Stop Time Status Last Admin Dose Admin Sodium Chloride 1,000 ml @ 150 mls/hr Q6H40M IV 07/07/17 13:40 5/4/18 13:39 07/08/17 10:29 150 MLS/HR Acetaminophen (Tylenol Tab) 650 mg Q4H PRN PO 07/07/17 13:45 08/06/17 13:44 Ascorbic Acid (Vitamin C Tab) 500 mg QAM PO 07/08/17 09:00 08/07/17 08:59 07/08/17 08:10 500 MG Aspirin (Ecotrin Tab) 81 mg DAILY PO 07/08/17 09:00 08/07/17 08:59 07/08/17 08:09 81 MG Cyanocobalamin (Vitamin B-12 Tab) 125 mcg QAM PO 07/08/17 09:00 08/07/17 08:59 07/08/17 08:10 125 MCG Lisinopril (Zestril Tab) 20 mg QAM PO 07/08/17 09:00 08/07/17 08:59 Future Hold 07/08/17 08:10 20 MG Loperamide HCl (Imodium Cap) 2 mg Q4 PRN PO 07/07/17 14:30 08/06/17 14:29 Magnesium Hydroxide (Milk Of Magnesia Susp) 30 ml DAILY PRN PO 07/07/17 14:30 08/06/17 14:29 Multivitamins (Multivitamin Tab) 1 tab QAM PO 07/08/17 09:00 08/07/17 08:59 07/08/17 08:09 1 TAB Pyridoxine HCl (Vitamin B-6 Tab) 50 mg QAM PO 07/08/17 09:00 08/07/17 08:59 07/08/17 08:10 50 MG Simethicone (Mylicon Chew Tab) 80 mg QID PO 07/07/17 17:00 08/06/17 16:59 07/08/17 08:09 80 MG Polyethylene (Miralax Powder Packet) 17 gm Q2D PO 07/08/17 09:00 08/07/17 08:59 07/08/17 08:09 17 GM Miscellaneous (Iv Fluids Completed) 1 ea PRN PRN N/A 07/07/17 15:15 07/07/18 15:14 Labetalol HCl (Normodyne IV) 10 mg Q6H PRN IV 07/07/17 19:45 08/06/17 19:44 Lorazepam (Ativan Tab) 0.5 mg TID PRN PO 07/08/17 09:45 08/07/17 09:44 Memantine (Namenda Tab) 10 mg BID PO 07/08/17 21:00 08/07/17 20:59 Mirtazapine (Remeron Tab) 30 mg HS PO 07/08/17 21:00 08/07/17 20:59 Nitroglycerin (Nitroglycerin 2% Oint) 0.5 inch Q6H EXT 07/08/17 10:30 08/07/17 10:29 UNV
--- NOTE | 2017-07-08 11:50 | ECHOCARDIOGRAM REPORT ---
*NOTICE TO RECEIVING [employer] This information is strictly Confidential and protected under [place] law. [place] law prohibits you from making any further disclosure of this information unless further disclosure is expressly permitted by the written consent of the person to whom it pertains or is authorized by law. A general authorization for the release of medical or other information is not sufficient for this purpose. Hospital accepts no responsibility if the information is made available to any other person, INCLUDING THE PATIENT. Interpretation Summary * Name: EVELIN RAMOS Study Date: 07/08/2017 10:35 AM BP: 159/99 mmHg * Patient Location: C.2T\S\S229\S\2 HR: 81 * : 1940 (M/d/y) Gender: Male Height: 68 in * Age: 77 yrs Ethnicity: [place] Weight: 208 lb * Ordering Physician: Diaz Moulton * Referring Physician: LUIS PEREZ * Performed By: Brianna Moore RCS * * Reason For Study: Elevated Troponins * BSA: 2.1 m2 * -- Conclusions -- * Compared to previous study of 07/04/17.: overall LV systolic function has improved. * Normal LV chamber size with mild concentric LVH, sigmoid appearing septum. * Normal LV systolic function, EF 60-65%. * No segmental left ventricular wall motion abnormalities are noted. Procedure Details * A two-dimensional transthoracic echocardiogram was performed. * Limited views were obtained. Left Ventricle * No segmental left ventricular wall motion abnormalities are noted. MMode 2D Measurements and Calculations IVSd 1.1 cm IVSs 1.3 cm LVIDd 5.1 cm LVIDs 3.7 cm LVPWd 1.1 cm LVPWs 1.3 cm IVS/LVPW 1.0 FS 25.9 % EDV(Teich) 121.4 ml ESV(Teich) 59.9 ml EF(Teich) 50.7 % EDV(cubed) 129.4 ml ESV(cubed) 52.6 ml EF(cubed) 59.3 % % IVS thick 15.9 % % LVPW thick 13.8 % LV mass(C)d 220.7 grams LV mass(C)dI 106.2 grams/m\S\2 LV mass(C)s 170.6 grams LV mass(C)sI 82.1 grams/m\S\2 SV(Teich) 61.5 ml SI(Teich) 29.6 ml/m\S\2 SV(cubed) 76.8 ml SI(cubed) 36.9 ml/m\S\2
--- NOTE | 2017-07-08 14:46 | Psychiatric Consultation ---
Consultation Date of Consultation Jul 08, 2017. Identifying Data 77-year-old resident [facility] with known schizoaffective disorder, dementia, hypertension, seizure disorder and hemangioma of the lip, who was brought to the emergency room by [facility] staff as a result of an increase in agitation and psychotic behaviors. We are consulted for medication adjustments. Information is gathered from the medical records, outpatient records, the patient. The patient is not considered to be a reliable historian. Chief Complaint "I am fine. ". History of Present Illness According to outpatient records, the patient is on Remeron 30 mg at bedtime, benztropine 1.5 mg twice a day as needed for EPS, Namenda 10 mg twice daily for memory, and Prolixin to cannulate 25 mg every 2 weeks the patient is a 77-year- old gentleman current residing at [facility]. He tells me he has been there for 5 years. He also has been in mental health treatment for a long time, how long is uncertain, but he currently sees Dr. Verdugo at [facility] medication management. Outpatient records reveal a diagnosis of schizoaffective disorder. His last visit was May 26 of this year at which time his Prolixin to cannulate was decreased to 25 mg every 2 weeks due to unspecified EPS. Since that time, the records indicate the patient has been increasingly agitated and yesterday reported that he was hearing Nixon Titus's voice, was found outside waiting on a bench for Nixon ashton to pick him up. At the time of my interview, the patient is seated on the bedside. He is cooperative with the interview. He is disoriented to location, not being able to gas where he is and when asked if he is at a bank he answers yes. He knows the year but no other time parameters. He remembers that he resides at [facility], saying that he has been there for 5 years and generally receives good care. I remind him of the events of yesterday and he agrees that he was hearing Nixon Titus's voice and has done so for a long time. He is not frightened by hearing this voice and actually believes that things he says. He also has other delusions about government agencies and being able to see things that are "invisible". He can tell me that he has taken Prolixin for a long time but does not believe that is the name of his current psychiatrist. Amada I attempt to ask questions regarding past hospitalizations but he gives me a list of hospitals and says he was there for various medical conditions. He indicates that he sleeps well, has a good appetite. He abruptly wants to end the interview saying he is tired and wants to go home. According to outpatient records from his psychiatrist, he is diagnosed with schizoaffective disorder. He is on Remeron 30 mg at bedtime, Cogentin 1.5 mg twice a day as needed for EPS, Namenda 10 mg twice a day for memory and Prolixin decanoate 25 mg every 2 weeks. His last injection was on June 29 and is due for his next injection on or about July 13. Dr. Verdugo had recommended that they add an oral dose of Prolixin 10 mg at bedtime until his next dose of injectable was due. He is also noted to have anxiety. Next scheduled appt is July 15. Past Psychiatric History Current OP Treatment: psychiatrist (Dr. Ybarra) Prior Psych Hospitalizations: other (unknown) Access to a Gun: No Suicide Attempts: No Past Medication Trials Unknown Past Medical/Surgical History (1) Rhabdomyolysis (2) Dementia (3) Seizure (4) Hemangioma of lip (5) Hypertension Allergies Allergies: Coded Allergies: Olanzapine (Verified Allergy, Mild, "IT DOES NOT WORK", 07/07/17) Risperidone (Verified Allergy, Unknown, UNKNOWN, 07/07/17) Tricyclic Antidepressants (Verified Allergy, Unknown, ., 07/07/17) Flu Virus Vaccine (Verified Adverse Reaction, Unknown, CAUSES PAIN AT INJECTION SITE, 07/07/17) Home Medications Scheduled Artificial Tear Solution (Artificial Tears), 1 DROP OPB BID Ascorbic Acid (Ascorbic Acid), 500 MG PO QAM Aspirin (Ecotrin Low Strength), 81 MG PO DAILY Atorvastatin (Lipitor), 20 MG PO DAILY Biotin (Biotin), 1,000 MCG PO TID Cyanocobalamin (Vitamin B12 500MCG), 125 MCG PO QAM Fluphenazine Decanoate (Fluphenazine Decanoate), 25 MG IM UD Lisinopril (Lisinopril), 20 MG PO QAM Memantine (Namenda), 10 MG PO BID Mirtazapine (Remeron), 30 MG PO HS Multiple Vitamins W/ Minerals (Preservision Areds 2), 1 CAP PO BID Multivitamin (Multivitamin), 1 TAB PO QAM Polyethylene Glycol 3350 (Miralax), 17 GM PO Q2D Pyridoxine (Vitamin B6), 50 MG PO QAM Simethicone (Gas Relief), 80 MG PO QID Scheduled PRN Acetaminophen (Tylenol), 650 MG PO Q4 PRN for Pain Benztropine Mesylate (Cogentin), 1.5 MG PO BID PRN for Muscle Spasms Loperamide Hcl (Anti-Diarrheal), 2 MG PO Q4 PRN for Diarrhea Lorazepam (Ativan), 0.5 MG PO TID PRN for Anxiety/Agitation Magnesium Hydroxide (Milk Of Magnesia), 30 ML PO DAILY PRN for Constipation Family History Cancer Hypertension Alcohol Use Patient unable to provide information Smoking Use Smoking Status: Former Smoker Review of Systems Unwilling to complete ROS Constitutional: other (fatigue) Examination Vital Signs Vital Signs Past 12 Hours Date Time Temp Pulse Resp B/P (MAP) Pulse Ox O2 Delivery O2 Flow Rate FiO2 07/08/17 13:16 109 185/82 (116) 68 201/101 (134) 07/08/17 12:03 95 Room Air 07/08/17 11:10 37.0 92 20 146/85 (105) 95 Room Air 07/08/17 08:00 Room Air 07/08/17 07:24 36.6 81 20 159/99 (119) 96 Room Air 07/08/17 06:06 94 139/83 (101) 07/08/17 06:05 86 164/84 (110) 07/08/17 06:03 82 171/83 (112) 07/08/17 04:00 Room Air 07/08/17 03:11 36.7 82 20 161/77 (105) 99 Room Air Laboratory Results Last 24 Hours Test 07/07/17 15:35 07/07/17 17:19 07/07/17 23:37 07/08/17 05:44 Urine Color YELLOW Urine Appearance CLEAR Urine pH 6.0 Urine Specific [place] 1.012 Urine Protein NEG Urine Glucose (UA) NEG Urine Ketones NEG Urine Occult Blood 2+ Urine Nitrite NEG Urine Bilirubin NEG Urine Urobilinogen NEG Urine Leukocyte Esterase NEG Urine WBC (Auto) 1-5 /hpf Urine RBC (Auto) 0-4 /hpf Urine Hyaline Casts (Auto) 5-10 /lpf Urine Epithelial Cells (Auto) 10-20 /lpf Urine Bacteria (Auto) NEG Urine Opiates Screen NEG Urine Methadone, Qualitative NEG Urine Barbiturates NEG Urine Phencyclidine (PCP) Level NEG Ur Amphetamine/Methamphetamine NEG MDMA (Ecstasy) Screen NEG Urine Benzodiazepines Screen NEG Urine Cocaine Metabolite NEG Urine Marijuana (THC) NEG White Blood Count 18.08 K/uL 15.36 K/uL Red Blood Count 4.41 M/uL 4.14 M/uL Hemoglobin 13.1 g/dL 12.6 g/dL Hematocrit 38.4 % 36.1 % Mean Corpuscular Volume 87.1 fL 87.2 fL Mean Corpuscular Hemoglobin 29.7 pg 30.4 pg Mean Corpuscular Hemoglobin Concent 34.1 g/dl 34.9 g/dl RDW Standard Deviation 43.9 fL 44.3 fL RDW Coefficient of Variation 13.8 % 13.8 % Platelet Count 330 K/uL 289 K/uL Mean Platelet Volume 9.1 fL 9.1 fL Sodium Level 136 mmol/L 138 mmol/L Potassium Level 4.0 mmol/L 4.0 mmol/L Chloride Level 105 mmol/L 108 mmol/L Carbon Dioxide Level 25 mmol/L 24 mmol/L Anion Gap 7.0 mmol/L 6.0 mmol/L Blood Urea Nitrogen 22 mg/dl 17 mg/dl Creatinine 1.46 mg/dl 1.04 mg/dl Est Creatinine Clear Calc Drug Dose 47.3 ml/min 66.4 ml/min Estimated GFR () 53.0 79.9 Estimated GFR (Non- 45.7 68.9 BUN/Creatinine Ratio 15.3 16.0 Random Glucose 96 mg/dl 97 mg/dl Calcium Level 8.4 mg/dl 8.1 mg/dl Total Bilirubin 0.9 mg/dl Aspartate Amino Transf (AST/SGOT) 229 U/L Alanine Aminotransferase (ALT/SGPT) 75 U/L Alkaline Phosphatase 57 U/L Total Creatine Kinase 56062 U/L 7694 U/L 5547 U/L Creatine Kinase MB 35.5 ng/ml 22.3 ng/ml Creatine Kinase MB Ratio 0.3 Troponin I 0.111 ng/ml 0.081 ng/ml Total Protein 6.2 gm/dl Albumin 2.9 gm/dl Globulin 3.3 gm/dl Albumin/Globulin Ratio 0.9 Test 07/08/17 10:36 Troponin I 0.052 ng/ml Mental Examination During interview pt is: other (Poorly cooperative, ending interview abruptly) Appearance: disheveled (large hemangioma on rt upper lip) Eye contact is: good Motor behavior is: no abnormal motor movements Speech: normal in rate, rhythm & volume Affect: blunted Mood is: other ("pretty good") Thought process: goal directed Thought content: paranoid, delusions Suicidal thought are: denied Homicidal thoughts are: denied Hallucinations: auditory, visual Cognition: language grossly intact Intelligence estimated to be: average Insight: impaired Judgement: impaired Impression / Recommendations Impression 77-year-old gentleman with known schizoaffective disorder, admitted with altered mental status, behavioral deterioration. Information from the patient is not necessarily helpful other than to confirm that he is having hallucinations and delusions. It appears that his behavior and condition have deteriorated in the setting of having his Prolixin decanoate reduced to 25 mg. I will add on the recommended oral dose of 10 mg at bedtime and a as needed dose until his next injection is due on July 15. I expect that he will be able [facility] to that [facility]. Agree with continuing his Remeron, Cogentin and Namenda although later in the records it indicates he recently decreased Cogentin down to 1 mg twice daily as needed. I do not think he is a candidate for inpatient mental health treatment at this time Recommendations (1) Schizoaffective disorder 07/08 -Add Prolixin 10 mg at bedtime -Next decanoate injection due on July 15 and recommended to resume 37.5 mg. -Not a candidate for inpatient mental health treatment at this time Dr. Carina Cantu is personally been involved in the review of this case and development of these recommendations.
[2017-07-08] MEDS ORDERED: AMLODIPINE BESYLATE 5 MG TAB PO STA (15:04)
--- NOTE | 2017-07-08 15:38 | CARDIOLOGY CONSULTATION ---
DATE OF CONSULTATION: 07/08/2017 CONSULTATION REQUESTED BY: Dr. Orr. REASON FOR CONSULTATION: Chest pain and elevated cardiac enzymes. HISTORY OF PRESENT ILLNESS: Mr. Mcfarland is a very pleasant 77-year-old gentleman who presented to [facility] on 07/07/2017 with a report of delusions from [facility]. Apparently, the patient was suffering from auditory hallucinations and believed he was speaking to the President. The patient refused his psychiatric medications at the facility and even walked the staff out of his room and refused to come out. He was reportedly very upset and very disheveled. The next morning, they found him lying on the ground face down. He was arousable; however, he was sent to [facility] for further evaluation. The patient was evaluated in the Emergency Department and found to have significantly elevated CPK levels with minimal troponin elevations. Currently, the patient states he feels comfortable at rest. He states that the chest pain he is experiencing is pleuritic in nature and reproducible. He states that it hurts across the precordium and underneath into his right axilla. Upon further questioning, the patient states that he did sleep on the floor with his left arm underneath his left rib cage and he did sleep face down on the hard floor. He denies any shortness of breath, diaphoresis, nausea, palpitations, lightheadedness, dizziness, or syncope. Again, he has not been taking his medications. Also of note, the patient was only discharged from [facility] on 07/05/2017 after he was admitted for a few days of generalized weakness. PAST SURGICAL HISTORY: 1. Cystoscopy. 2. Tonsillectomy. MEDICAL ILLNESSES: 1. Schizoaffective disorder. 2. Lip hemangioma. 3. Bipolar disorder. 4. History of CVA. 5. Dementia. 6. Hypertension. 7. Hyponatremia. 8. Epilepsy. FAMILY HISTORY: Denies any premature coronary artery disease or cardiac . SOCIAL HISTORY: The patient is a former smoker. Denies alcohol or recreational drug use. He is not . Again, he currently resides at [facility]. REVIEW OF SYSTEMS: As per HPI. All other review of systems reviewed and negative at this time. ALLERGIES: 1. RISPERIDONE. 2. OLANZAPINE. 3. TRICYCLIC ANTIDEPRESSANTS. 4. FLU VACCINE. MEDICATIONS AN OUTPATIENT: 1. Aspirin 81 mg daily. 2. Atorvastatin 20 mg daily. 3. Lisinopril 20 mg daily. 4. Vitamin B12. 5. Fluphenazine. 6. Namenda. 7. Remeron. PHYSICAL EXAMINATION: VITALS: Temperature 36.6, pulse 89, respiratory rate 12, and blood pressure 159/99. GENERAL: Awake, alert, and oriented x3, no acute distress, and answers questions appropriately. HEENT: Normocephalic and atraumatic with a large right upper lip hemangioma. Extraocular muscles intact. Anicteric sclerae. Moist mucous membranes. NECK: No JVD and no bruit. CARDIOVASCULAR: Regular. No S4. Normal S1 and S2. No S3. No murmurs or rubs. PULMONARY: Clear to auscultation bilaterally. No rales, rhonchi, or wheezing. ABDOMEN: Bowel sounds x4. Soft. No rebound, guarding, or tenderness. No organomegaly. EXTREMITIES: No clubbing, cyanosis or edema. +2 pedal pulses bilaterally. SKIN: Warm and dry. TEST RESULTS: A 2D echocardiogram performed on 07/04/2017 was read as normal LV chamber size with mild concentric LVH, sigmoid appearing septum, low normal LV systolic function with borderline global hypokinesis, EF 50%-55%, grade 1 diastolic dysfunction, mild aortic valve sclerosis without stenosis, and mild left atrial enlargement. The interatrial septum is intact. No evidence of an ASD. Injection of contrast documented no interatrial shunt. Limited echocardiogram repeated today showed overall normalized LV systolic function, EF 60%-65% without wall motion abnormalities. LABORATORY STUDIES OF SIGNIFICANCE: Initial CPK of 10,886, then 10,345, the 7600, and then 5500. Initial troponin of 0.14, followed by 0.11, followed by 0.08 followed by 0.052. A 12-lead EKG performed in the Emergency Department independently reviewed at this time shows normal sinus rhythm at 84 beats per minute, left anterior fascicular block, and inverted T waves in the lateral leads, which are new compared to previous study. IMPRESSION: 1. Reproducible chest pain. 2. Rhabdomyolysis. 3. Hypertension. 4. Medication noncompliance. 5. Schizoaffective disorder. 6. Bipolar disorder. RECOMMENDATIONS: It was my pleasure to see Mr. Mcfarland in consultation today. Given the fact that the patient obviously has rhabdomyolysis and significant peripheral muscle breakdown, one would expect minimal troponin elevation given the fact that the enzyme also found in peripheral muscle and the CPK is obviously due to muscle breakdown from the rhabdomyolysis. Otherwise, his chest pain is reproducible when I touched his chest and his echocardiogram showed no wall motion abnormalities. So, no further cardiac testing or intervention is necessary at this time. I recommend following his blood pressure and increase his lisinopril dose as necessary to help control it or even adding amlodipine. Otherwise, there is no reason to maintain the patient on telemetry monitoring at this time and is okay to discharge the patient back to [facility] from a cardiac standpoint once his IV fluid resuscitation has been completed.
[2017-07-08] MEDS: FLUPHENAZINE HCL 2.5 MG TAB PO PRN (17:27)
[2017-07-08] MEDS: LORAZEPAM 0.5 MG TAB PO PRN (18:54)
[2017-07-08] MEDS: MIRTAZAPINE TAB 15 MG TAB PO SCH (21:26)
[2017-07-08] MEDS: MEMANTINE 10 MG TAB PO SCH (21:27)
[2017-07-08] MEDS: FLUPHENAZINE HCL 2.5 MG TAB PO SCH (21:28)
[2017-07-09] VITALS (10 sets, daily range): BP systolic 120–188; BP diastolic 59–97; PULSE 62–84; TEMP 36.2–36.8; O2SAT 97–98
[2017-07-09] MEDS: CLONIDINE HCL 0.1 MG TAB PO PRN ×2 (00:28→11:04)
[2017-07-09] MEDS: SODIUM CHLORIDE 0.9% 1000ML 1,000 ML IV SCH ×4 (01:07→21:02)
[2017-07-09 06:10] LABS: BASO % 0.3 %; BASO ABS # 0.04 K/uL (0-0.2); EOS % 3.8 %; EOS ABS # 0.47 K/uL (0-0.5); HEMATOCRIT 35.3 % (42-52); HEMOGLOBIN 11.7 g/dL (14.0-18.0); IG# 0.07 K/uL (0.00-0.02); LYMPH % 14.8 %; LYMPH ABS # 1.85 K/uL (1.2-3.4); MEAN CELL VOLUME 88.3 fL (80-100); MEAN CORPUSCULAR HEMOGLOBIN 29.3 pg (25-34); MEAN CORPUSCULAR HGB CONC 33.1 g/dl (32-36); MEAN PLATELET VOLUME 8.8 fL (7.4-10.4); MONO % 8.7 %; MONO ABS # 1.09 K/uL (0.11-0.59); NEUT % 71.8 %; NEUT ABS # 9.01 K/uL (1.4-6.5); PLATELET COUNT 275 K/uL (130-400); RED CELL DISTRIBUTION WIDTH CV 13.8 % (11.5-14.5); RED CELL DISTRIBUTION WIDTH SD 45.1 fL (36.4-46.3); WHITE BLOOD COUNT 12.53 K/uL (4.8-10.8)
[2017-07-09 06:39] LABS: CALCIUM 8.1 mg/dl (8.5-10.1); CREATININE 0.84 mg/dl (0.60-1.40); POTASSIUM 3.7 mmol/L (3.5-5.1)
[2017-07-09] MEDS ORDERED: AMLODIPINE BESYLATE 5 MG TAB PO SCH ×2 (09:00)
[2017-07-09] MEDS: MULTIVITAMIN TAB PO SCH (09:11)
[2017-07-09] MEDS: LISINOPRIL 20 MG TAB PO SCH (09:11)
[2017-07-09] MEDS: SIMETHICONE 80 MG CHEW PO SCH ×5 (09:11→21:03)
[2017-07-09] MEDS: ASPIRIN 81 MG ECTAB PO SCH (09:12)
[2017-07-09] MEDS: PYRIDOXINE HCL 50 MG TAB PO SCH (09:13)
[2017-07-09] MEDS: ASCORBIC ACID 500 MG TAB PO SCH (09:13)
[2017-07-09] MEDS: CYANOCOBALAMIN 500 MCG TAB (VIT B-12) PO SCH (09:14)
[2017-07-09] MEDS: MEMANTINE 10 MG TAB PO SCH ×2 (10:12→21:02)
[2017-07-09] MEDS: ACETAMINOPHEN 325 MG TAB PO PRN (12:18)
[2017-07-09] MEDS ORDERED: AMLODIPINE BESYLATE 5 MG TAB PO ONE (12:30)
--- NOTE | 2017-07-09 17:38 | Progress Note ---
Medicine Progress Note Date & Time of Visit: Jul 09, 2017 at 17:33. Subjective Seen resting sleeping but easily arousable One-to-one observation by [employer] Alert oriented to person place Seems to be more focused less restless today Denies hearing voices Denies suicidal ideations No chest pain shortness of breath headache No other symptoms Objective Last 8 Hrs Date Time Temp Pulse Resp B/P (MAP) Pulse Ox O2 Delivery O2 Flow Rate FiO2 07/09/17 15:34 36.2 07/09/17 14:51 120/59 (79) 07/09/17 12:22 170/82 (111) 07/09/17 12:00 97 Room Air 07/09/17 10:43 36.8 84 24 188/79 (115) 97 Room Air Physical Exam: General-oriented x 2, not in distress, speaks in sentences with no effort Eyes-anicteric ENT- oropharynx clear Neck- supple, no JVD Lungs-clear breath sounds bilaterally Heart- regular rhythm; no murmur, normal rate Abdomen- normal bowel sounds, soft, nontender, nondistended Extremities- no pretibial edema, no calf tenderness Neuro- alert, oriented x 2; mild dysarthria otherwise no gross focal motor or sensory, other neuro deficits Skin- warm & dry Psych-no suicidal ideations, affect appropriate, mood stable Laboratory Results: Last 24 Hours Test 07/08/17 17:48 07/09/17 05:47 Total Creatine Kinase 4735 U/L 2607 U/L White Blood Count 12.53 K/uL Red Blood Count 4.00 M/uL Hemoglobin 11.7 g/dL Hematocrit 35.3 % Mean Corpuscular Volume 88.3 fL Mean Corpuscular Hemoglobin 29.3 pg Mean Corpuscular Hemoglobin Concent 33.1 g/dl Platelet Count 275 K/uL Mean Platelet Volume 8.8 fL Neutrophils (%) (Auto) 71.8 % Lymphocytes (%) (Auto) 14.8 % Monocytes (%) (Auto) 8.7 % Eosinophils (%) (Auto) 3.8 % Basophils (%) (Auto) 0.3 % Neutrophils # (Auto) 9.01 K/uL Lymphocytes # (Auto) 1.85 K/uL Monocytes # (Auto) 1.09 K/uL Eosinophils # (Auto) 0.47 K/uL Basophils # (Auto) 0.04 K/uL RDW Standard Deviation 45.1 fL RDW Coefficient of Variation 13.8 % Immature Granulocyte % (Auto) 0.6 % Immature Granulocyte # (Auto) 0.07 K/uL Sodium Level 138 mmol/L Potassium Level 3.7 mmol/L Chloride Level 109 mmol/L Carbon Dioxide Level 25 mmol/L Anion Gap 4.0 mmol/L Blood Urea Nitrogen 10 mg/dl Creatinine 0.84 mg/dl Est Creatinine Clear Calc Drug Dose 84.4 ml/min Estimated GFR () 97.9 Estimated GFR (Non- 84.5 BUN/Creatinine Ratio 12.3 Random Glucose 80 mg/dl Calcium Level 8.1 mg/dl Assessment & Plan Patient is a 77-year-old [facility] resident with a past medical history of cerebrovascular disease, hypertension, possible h/o seizures, dementia and schizoaffective disorder who presents due to AMS and agitation yesterday and was found to have rhabdomyolysis. Acute rhabdomyolysis: -CPK > 10,000 Discussed with [facility] staff- [facility] Patient was noted to be restless yesterday, walking around the room constantly, also crawling on the floor Rhabdomyolysis could be secondary to above -Lipitor was only given once on July 06, 2017 -CPK further trending down to the 2000s Decrease IV fluid rate Monitor CPK Elevated troponin: - Mild troponin elevation of 0.141--> 0.08 t wave changes in the lateral leads on admission - patient reporting chest pain this morning EKG no signs of acute ischemia Troponins trending down already on Aspirin Statin on hold due to Rhabdo Cardiology consulted, appreciate the recommendations Hypertension On lisinopril Increased amlodipine Improving Monitor AMS/hallucinations: -Reported agitation, auditory hallucinations yesterday -H/o schizoaffective disorder, dementia --Further information divided from nursing home facilities staff Patient was apparently oriented and pleasant at baseline Since decreasing fluphenazine in May, patient was noted to be progressively more paranoid --One day prior to admission patient was noted to be paranoid, agitated, uncooperative at the snf --Psychiatry service consulted for further recommendations Fluphenazine p.o. at bedtime added Patient seems to be improving Continue to monitor Leukocytosis: -WBC of 20 -Increased from 13.9 on 07/05 -No evidence of infection on CXR, UA -No clinical signs of infection -Likely 2/2 rhabdo -Wbc count downtrending with fluids -Blood cultures negative Dysarthria: -2/2 mechanical issues related to hemangioma, dentures -Negative work up (CT head, MRI brain, CT neck, carotid duplex, echo) on previous admission -Follow up with dentisit, ENT H/o CVA: -Continue aspirin DVT Ppx: SCDs (No anticoagulants due to reported possible bleeding from hemangioma) Code status: FULL PCP: Marciano Dispo: Pending Anticipate return to nursing home facility once altered mental status/ behavioral disturbance improves Current Inpatient Medications: Current Inpatient Medications Medications (Trade) Dose Ordered Sig/Mickie Route Start Time Stop Time Status Last Admin Dose Admin Sodium Chloride 1,000 ml @ 150 mls/hr Q6H40M IV 07/07/17 13:40 08/06/17 13:39 07/09/17 15:41 150 MLS/HR Acetaminophen (Tylenol Tab) 650 mg Q4H PRN PO 07/07/17 13:45 08/06/17 13:44 07/09/17 12:18 650 MG Ascorbic Acid (Vitamin C Tab) 500 mg QAM PO 07/08/17 09:00 08/07/17 08:59 07/09/17 09:13 500 MG Aspirin (Ecotrin Tab) 81 mg DAILY PO 07/08/17 09:00 08/07/17 08:59 07/09/17 09:12 81 MG Cyanocobalamin (Vitamin B-12 Tab) 125 mcg QAM PO 07/08/17 09:00 08/07/17 08:59 07/09/17 09:14 125 MCG Loperamide HCl (Imodium Cap) 2 mg Q4 PRN PO 07/07/17 14:30 08/06/17 14:29 Magnesium Hydroxide (Milk Of Magnesia Susp) 30 ml DAILY PRN PO 07/07/17 14:30 08/06/17 14:29 Multivitamins (Multivitamin Tab) 1 tab QAM PO 07/08/17 09:00 08/07/17 08:59 07/09/17 09:11 1 TAB Pyridoxine HCl (Vitamin B-6 Tab) 50 mg QAM PO 07/08/17 09:00 08/07/17 08:59 07/09/17 09:13 50 MG Simethicone (Mylicon Chew Tab) 80 mg QID PO 07/07/17 17:00 08/06/17 16:59 07/09/17 12:18 80 MG Polyethylene (Miralax Powder Packet) 17 gm Q2D PO 07/08/17 09:00 08/07/17 08:59 07/08/17 08:09 17 GM Miscellaneous (Iv Fluids Completed) 1 ea PRN PRN N/A 07/07/17 15:15 07/07/18 15:14 Labetalol HCl (Normodyne IV) 10 mg Q6H PRN IV 07/07/17 19:45 08/06/17 19:44 Lorazepam (Ativan Tab) 0.5 mg TID PRN PO 07/08/17 09:45 08/07/17 09:44 07/08/17 18:54 0.5 MG Memantine (Namenda Tab) 10 mg BID PO 07/08/17 21:00 08/07/17 20:59 07/09/17 10:12 10 MG Mirtazapine (Remeron Tab) 30 mg HS PO 07/08/17 21:00 08/07/17 20:59 07/08/17 21:26 30 MG Lisinopril (Zestril Tab) 20 mg QAM PO 07/09/17 09:00 08/08/17 08:59 07/09/17 09:11 20 MG Fluphenazine HCl (Prolixin Tab) 10 mg HS PO 07/08/17 21:00 08/07/17 20:59 07/08/17 21:28 10 MG Fluphenazine HCl (Prolixin Tab) 2.5 mg Q6 PRN PO 07/08/17 15:00 08/07/17 14:59 07/08/17 17:27 2.5 MG Clonidine HCl (Catapres Tab) 0.1 mg Q6H PRN PO 07/08/17 17:30 08/07/17 17:29 07/09/17 11:04 0.1 MG Amlodipine Besylate (Norvasc Tab) 10 mg QAM PO 07/10/17 08:00 08/08/17 08:59
[2017-07-09] MEDS: FLUPHENAZINE HCL 2.5 MG TAB PO SCH (21:03)
[2017-07-09] MEDS: MIRTAZAPINE TAB 15 MG TAB PO SCH (21:04)
[2017-07-10] MEDS: SODIUM CHLORIDE 0.9% 1000ML 1,000 ML IV SCH ×2 (05:29→16:10)
[2017-07-10 06:29] LABS: BASO % 0.4 %; BASO ABS # 0.05 K/uL (0-0.2); EOS % 3.3 %; EOS ABS # 0.43 K/uL (0-0.5); HEMATOCRIT 38.4 % (42-52); HEMOGLOBIN 13.5 g/dL (14.0-18.0); IG# 0.08 K/uL (0.00-0.02); LYMPH % 9.8 %; LYMPH ABS # 1.27 K/uL (1.2-3.4); MEAN CELL VOLUME 86.5 fL (80-100); MEAN CORPUSCULAR HEMOGLOBIN 30.4 pg (25-34); MEAN CORPUSCULAR HGB CONC 35.2 g/dl (32-36); MEAN PLATELET VOLUME 9.1 fL (7.4-10.4); MONO ABS # 1.16 K/uL (0.11-0.59); NEUT % 76.9 %; NEUT ABS # 9.95 K/uL (1.4-6.5); PLATELET COUNT 308 K/uL (130-400); RED CELL DISTRIBUTION WIDTH CV 13.8 % (11.5-14.5); RED CELL DISTRIBUTION WIDTH SD 43.3 fL (36.4-46.3); WHITE BLOOD COUNT 12.94 K/uL (4.8-10.8)
[2017-07-10 07:08] LABS: CALCIUM 8.7 mg/dl (8.5-10.1); CREATININE 0.71 mg/dl (0.60-1.40); POTASSIUM 3.5 mmol/L (3.5-5.1)
[2017-07-10] MEDS: LISINOPRIL 20 MG TAB PO SCH (08:12)
[2017-07-10] MEDS: AMLODIPINE BESYLATE 5 MG TAB PO SCH (08:12)
[2017-07-10] MEDS: POLYETHYLENE (MIRALAX) 17 GM PACK PO SCH (08:12)
[2017-07-10] MEDS: MULTIVITAMIN TAB PO SCH (08:12)
[2017-07-10] MEDS: SIMETHICONE 80 MG CHEW PO SCH ×4 (08:12→20:46)
[2017-07-10] MEDS: PYRIDOXINE HCL 50 MG TAB PO SCH (08:12)
[2017-07-10] MEDS: CYANOCOBALAMIN 500 MCG TAB (VIT B-12) PO SCH (08:12)
[2017-07-10] MEDS: MEMANTINE 10 MG TAB PO SCH ×2 (08:12→20:47)
[2017-07-10] MEDS: ASCORBIC ACID 500 MG TAB PO SCH (08:13)
[2017-07-10] MEDS: ASPIRIN 81 MG ECTAB PO SCH (08:13)
[2017-07-10 13:45] VITALS: BP 169/102; PULSE 89; O2SAT 98
[2017-07-10] MEDS: ACETAMINOPHEN 325 MG TAB PO PRN (13:57)
[2017-07-10] MEDS: LORAZEPAM 0.5 MG TAB PO PRN (16:06)
[2017-07-10] MEDS: LORAZEPAM INJ 0.5 MG in SYRINGE 0.75 ML IV PRN (16:07)
[2017-07-10] MEDS: FLUPHENAZINE HCL 2.5 MG TAB PO PRN (16:27)
--- NOTE | 2017-07-10 17:54 | Progress Note ---
Medicine Progress Note Date & Time of Visit: Jul 10, 2017 at 17:50. Subjective Seen with a [employer] at the bedside patient noted to be confused today On exam patient sleepy easily awaken Cooperative but seems to be somewhat confused Reports discomfort on the Guy catheter site Denies chest pain shortness of breath headache nausea Needed to be reoriented during evaluation Denies auditory hallucinations, or suicidal ideations Objective Last 8 Hrs Date Time Temp Pulse Resp B/P (MAP) Pulse Ox O2 Delivery O2 Flow Rate FiO2 07/10/17 13:45 89 20 169/102 (124) 98 Physical Exam: General-oriented x 2, not in distress, speaks in sentences with no effort Eyes-anicteric Neck- no JVD Lungs-clear breath sounds bilaterally, no rales or wheezes Heart- regular rhythm; no murmur, normal rate Abdomen- normal bowel sounds, soft, nontender, nondistended Extremities- no pretibial edema, no calf tenderness Neuro- alert, oriented x 2; mild dysarthria otherwise no gross focal motor or sensory, other neuro deficits Skin- warm & dry Psych-no suicidal ideations, affect appropriate, mood stable, but seems to be confused Laboratory Results: Last 24 Hours Test 07/10/17 05:49 White Blood Count 12.94 K/uL Red Blood Count 4.44 M/uL Hemoglobin 13.5 g/dL Hematocrit 38.4 % Mean Corpuscular Volume 86.5 fL Mean Corpuscular Hemoglobin 30.4 pg Mean Corpuscular Hemoglobin Concent 35.2 g/dl Platelet Count 308 K/uL Mean Platelet Volume 9.1 fL Neutrophils (%) (Auto) 76.9 % Lymphocytes (%) (Auto) 9.8 % Monocytes (%) (Auto) 9.0 % Eosinophils (%) (Auto) 3.3 % Basophils (%) (Auto) 0.4 % Neutrophils # (Auto) 9.95 K/uL Lymphocytes # (Auto) 1.27 K/uL Monocytes # (Auto) 1.16 K/uL Eosinophils # (Auto) 0.43 K/uL Basophils # (Auto) 0.05 K/uL RDW Standard Deviation 43.3 fL RDW Coefficient of Variation 13.8 % Immature Granulocyte % (Auto) 0.6 % Immature Granulocyte # (Auto) 0.08 K/uL Sodium Level 136 mmol/L Potassium Level 3.5 mmol/L Chloride Level 104 mmol/L Carbon Dioxide Level 24 mmol/L Anion Gap 8.0 mmol/L Blood Urea Nitrogen 7 mg/dl Creatinine 0.71 mg/dl Est Creatinine Clear Calc Drug Dose 99.8 ml/min Estimated GFR () 104.9 Estimated GFR (Non- 90.5 BUN/Creatinine Ratio 10.1 Random Glucose 103 mg/dl Calcium Level 8.7 mg/dl Total Creatine Kinase 1353 U/L Assessment & Plan Patient is a 77-year-old [facility] resident with a past medical history of cerebrovascular disease, hypertension, possible h/o seizures, dementia and schizoaffective disorder who presents due to AMS and agitation yesterday and was found to have rhabdomyolysis. Acute rhabdomyolysis: -CPK > 10,000 Discussed with senior care home staff- [facility] Patient was noted to be restless yesterday, walking around the room constantly, also crawling on the floor Rhabdomyolysis could be secondary to above -Lipitor was only given once on July 06, 2017 -CPK further trending down, now 1300s Decrease IV fluid rate Monitor CPK Elevated troponin: - Mild troponin elevation of 0.141--> 0.08 t wave changes in the lateral leads on admission -On hospital day 2, patient reporting chest pain EKG no signs of acute ischemia Troponins trending down already on Aspirin Statin on hold due to Rhabdo Cardiology consulted, appreciate the recommendations Hypertension On lisinopril Increased amlodipine Continue to monitor response As needed clonidine AMS/hallucinations: -Reported agitation, auditory hallucinations yesterday -H/o schizoaffective disorder, dementia --Further information divided from senior care facilities staff Patient was apparently oriented and pleasant at baseline Since decreasing fluphenazine in May, patient was noted to be progressively more paranoid --One day prior to admission patient was noted to be paranoid, agitated, uncooperative at the care home --Psychiatry service consulted for further recommendations Fluphenazine p.o. at bedtime added --Notified by RN later in the afternoon the patient was combative, agitated Called psych liaison, will provide Ativan 0.5 every 6 hours as needed for agitation until further evaluation by psych service Leukocytosis: -WBC of 20 -Increased from 13.9 on 07/05 -No evidence of infection on CXR, UA -No clinical signs of infection -Likely 2/2 rhabdo -Wbc count downtrending with fluids -Blood cultures negative Dysarthria: -2/2 mechanical issues related to hemangioma, dentures -Negative work up (CT head, MRI brain, CT neck, carotid duplex, echo) on previous admission -Follow up with dentist, ENT H/o CVA: -Continue aspirin DVT Ppx: SCDs (No anticoagulants due to reported possible bleeding from hemangioma) Code status: FULL PCP: Marciano Dispo: Pending Anticipate return to senior care facility once altered mental status/ behavioral disturbance improves Current Inpatient Medications: Current Inpatient Medications Medications (Trade) Dose Ordered Sig/Mickie Route Start Time Stop Time Status Last Admin Dose Admin Sodium Chloride 1,000 ml @ 100 mls/hr Q10H IV 07/07/17 13:40 08/06/17 13:39 07/10/17 16:10 100 MLS/HR Acetaminophen (Tylenol Tab) 650 mg Q4H PRN PO 07/07/17 13:45 08/06/17 13:44 07/10/17 13:57 650 MG Ascorbic Acid (Vitamin C Tab) 500 mg QAM PO 07/08/17 09:00 08/07/17 08:59 07/10/17 08:13 500 MG Aspirin (Ecotrin Tab) 81 mg DAILY PO 07/08/17 09:00 08/07/17 08:59 07/10/17 08:13 81 MG Cyanocobalamin (Vitamin B-12 Tab) 125 mcg QAM PO 07/08/17 09:00 08/07/17 08:59 07/10/17 08:12 125 MCG Loperamide HCl (Imodium Cap) 2 mg Q4 PRN PO 07/07/17 14:30 08/06/17 14:29 Magnesium Hydroxide (Milk Of Magnesia Susp) 30 ml DAILY PRN PO 07/07/17 14:30 08/06/17 14:29 Multivitamins (Multivitamin Tab) 1 tab QAM PO 07/08/17 09:00 08/07/17 08:59 07/10/17 08:12 1 TAB Pyridoxine HCl (Vitamin B-6 Tab) 50 mg QAM PO 07/08/17 09:00 08/07/17 08:59 07/10/17 08:12 50 MG Simethicone (Mylicon Chew Tab) 80 mg QID PO 07/07/17 17:00 08/06/17 16:59 07/10/17 16:29 80 MG Polyethylene (Miralax Powder Packet) 17 gm Q2D PO 07/08/17 09:00 08/07/17 08:59 07/10/17 08:12 17 GM Miscellaneous (Iv Fluids Completed) 1 ea PRN PRN N/A 07/07/17 15:15 07/07/18 15:14 Labetalol HCl (Normodyne IV) 10 mg Q6H PRN IV 07/07/17 19:45 08/06/17 19:44 Lorazepam (Ativan Tab) 0.5 mg TID PRN PO 07/08/17 09:45 08/07/17 09:44 07/08/17 18:54 0.5 MG Memantine (Namenda Tab) 10 mg BID PO 07/08/17 21:00 08/07/17 20:59 07/10/17 08:12 10 MG Mirtazapine (Remeron Tab) 30 mg HS PO 07/08/17 21:00 08/07/17 20:59 07/09/17 21:04 30 MG Lisinopril (Zestril Tab) 20 mg QAM PO 07/09/17 09:00 08/08/17 08:59 07/10/17 08:12 20 MG Fluphenazine HCl (Prolixin Tab) 10 mg HS PO 07/08/17 21:00 08/07/17 20:59 07/09/17 21:03 10 MG Fluphenazine HCl (Prolixin Tab) 2.5 mg Q6 PRN PO 07/08/17 15:00 08/07/17 14:59 07/10/17 16:27 2.5 MG Clonidine HCl (Catapres Tab) 0.1 mg Q6H PRN PO 07/08/17 17:30 08/07/17 17:29 07/09/17 11:04 0.1 MG Amlodipine Besylate (Norvasc Tab) 10 mg QAM PO 07/10/17 08:00 08/08/17 08:59 07/10/17 08:12 10 MG Lorazepam 0.5 mg/ Syringe 1 ml @ 0.5 mls/min Q6H PRN IV 07/10/17 15:45 08/09/17 15:44 07/10/17 16:07 0.5 MLS/MIN
[2017-07-10] MEDS: FLUPHENAZINE HCL 2.5 MG TAB PO SCH (20:46)
[2017-07-10] MEDS: MIRTAZAPINE TAB 15 MG TAB PO SCH (20:46)
[2017-07-10 23:24] VITALS: BP 132/75; PULSE 76; TEMP 36.8; O2SAT 96
[2017-07-11] MEDS: SODIUM CHLORIDE 0.9% 1000ML 1,000 ML IV SCH (04:00)
[2017-07-11 07:05] LABS: BASO % 0.4 %; BASO ABS # 0.06 K/uL (0-0.2); EOS % 3.2 %; EOS ABS # 0.46 K/uL (0-0.5); HEMOGLOBIN 12.2 g/dL (14.0-18.0); IG# 0.09 K/uL (0.00-0.02); LYMPH % 12.3 %; LYMPH ABS # 1.79 K/uL (1.2-3.4); MEAN CELL VOLUME 87.4 fL (80-100); MEAN CORPUSCULAR HEMOGLOBIN 29.6 pg (25-34); MEAN CORPUSCULAR HGB CONC 33.9 g/dl (32-36); MEAN PLATELET VOLUME 9.1 fL (7.4-10.4); MONO % 10.5 %; MONO ABS # 1.52 K/uL (0.11-0.59); NEUT ABS # 10.58 K/uL (1.4-6.5); PLATELET COUNT 278 K/uL (130-400); RED CELL DISTRIBUTION WIDTH CV 14.1 % (11.5-14.5); RED CELL DISTRIBUTION WIDTH SD 45.1 fL (36.4-46.3)
[2017-07-11 07:41] LABS: CALCIUM 8.2 mg/dl (8.5-10.1); CREATININE 1.07 mg/dl (0.60-1.40); POTASSIUM 3.5 mmol/L (3.5-5.1)
[2017-07-11] MEDS: AMLODIPINE BESYLATE 5 MG TAB PO SCH (07:55)
[2017-07-11] MEDS: LISINOPRIL 20 MG TAB PO SCH (07:55)
[2017-07-11] MEDS: CYANOCOBALAMIN 500 MCG TAB (VIT B-12) PO SCH (07:55)
[2017-07-11] MEDS: PYRIDOXINE HCL 50 MG TAB PO SCH (07:55)
[2017-07-11] MEDS: MULTIVITAMIN TAB PO SCH (07:55)
[2017-07-11] MEDS: SIMETHICONE 80 MG CHEW PO SCH ×4 (07:56→19:36)
[2017-07-11] MEDS: MEMANTINE 10 MG TAB PO SCH ×2 (07:56→19:36)
[2017-07-11] MEDS: ASCORBIC ACID 500 MG TAB PO SCH (07:56)
[2017-07-11] MEDS: ASPIRIN 81 MG ECTAB PO SCH (07:56)
[2017-07-11 15:04] VITALS: BP 128/72; PULSE 90; TEMP 37.1; O2SAT 97
--- NOTE | 2017-07-11 19:19 | Progress Note ---
Medicine Progress Note Date & Time of Visit: Jul 11, 2017 at 19:16. Subjective Seen resting in bed, seen at the bedside Per seen in the patient was somewhat confused this morning In the middle of the breakfast, patient did not want to eat anymore as he thought that the food/drink had poison Seen resting in bed reading the newspaper Alert, cooperative Denies having any pain, shortness of breath, dizziness Denies having any hallucinations, suicidal ideations Objective Last 8 Hrs Date Time Temp Pulse Resp B/P (MAP) Pulse Ox O2 Delivery O2 Flow Rate FiO2 07/11/17 16:20 Room Air 07/11/17 15:04 37.1 90 20 128/72 (90) 97 Room Air Physical Exam: General-oriented x 2, not in distress, speaks in sentences with no effort Eyes-anicteric Neck- no JVD Lungs-clear breath sounds bilaterally Heart- regular rhythm; no murmur, normal rate Abdomen- normal bowel sounds, soft, nontender, nondistended Extremities- no pretibial edema, no calf tenderness Neuro- alert, oriented x 2; mild dysarthria otherwise no gross focal motor or sensory, other neuro deficits Skin- warm & dry Psych-no suicidal ideations, affect appropriate, mood stable, but seems to be confused Laboratory Results: Last 24 Hours Test 07/11/17 06:27 White Blood Count 14.50 K/uL Red Blood Count 4.12 M/uL Hemoglobin 12.2 g/dL Hematocrit 36.0 % Mean Corpuscular Volume 87.4 fL Mean Corpuscular Hemoglobin 29.6 pg Mean Corpuscular Hemoglobin Concent 33.9 g/dl Platelet Count 278 K/uL Mean Platelet Volume 9.1 fL Neutrophils (%) (Auto) 73.0 % Lymphocytes (%) (Auto) 12.3 % Monocytes (%) (Auto) 10.5 % Eosinophils (%) (Auto) 3.2 % Basophils (%) (Auto) 0.4 % Neutrophils # (Auto) 10.58 K/uL Lymphocytes # (Auto) 1.79 K/uL Monocytes # (Auto) 1.52 K/uL Eosinophils # (Auto) 0.46 K/uL Basophils # (Auto) 0.06 K/uL RDW Standard Deviation 45.1 fL RDW Coefficient of Variation 14.1 % Immature Granulocyte % (Auto) 0.6 % Immature Granulocyte # (Auto) 0.09 K/uL Sodium Level 138 mmol/L Potassium Level 3.5 mmol/L Chloride Level 105 mmol/L Carbon Dioxide Level 24 mmol/L Anion Gap 9.0 mmol/L Blood Urea Nitrogen 11 mg/dl Creatinine 1.07 mg/dl Est Creatinine Clear Calc Drug Dose 66.2 ml/min Estimated GFR () 77.2 Estimated GFR (Non- 66.6 BUN/Creatinine Ratio 10.7 Random Glucose 83 mg/dl Calcium Level 8.2 mg/dl Total Creatine Kinase 372 U/L Assessment & Plan Patient is a 77-year-old [facility] resident with a past medical history of cerebrovascular disease, hypertension, possible h/o seizures, dementia and schizoaffective disorder who presents due to AMS and agitation yesterday and was found to have rhabdomyolysis. Acute rhabdomyolysis: -CPK > 10,000 Discussed with [facility] staff- [facility] Patient was noted to be restless yesterday, walking around the room constantly, also crawling on the floor Rhabdomyolysis could be secondary to above -Lipitor was only given once on July 06, 2017 -CPK further trending down, now 300s Discontinue IV fluid Monitor CPK Elevated troponin: - Mild troponin elevation of 0.141--> 0.08 t wave changes in the lateral leads on admission -On hospital day 2, patient reporting chest pain EKG no signs of acute ischemia Troponins trending down already on Aspirin Statin on hold due to Rhabdo Cardiology consulted, appreciate the recommendations Hypertension On lisinopril Increased amlodipine BP improved Continue to monitor As needed clonidine AMS/hallucinations: -Reported agitation, auditory hallucinations yesterday -H/o schizoaffective disorder, dementia --Further information divided from long term facilities staff Patient was apparently oriented and pleasant at baseline Since decreasing fluphenazine in May, patient was noted to be progressively more paranoid --One day prior to admission patient was noted to be paranoid, agitated, uncooperative at the alf --Psychiatry service consulted for further recommendations Fluphenazine p.o. at bedtime added --Patient still having episodes of paranoia Seems to be less agitated today Continue to monitor As needed Ativan Leukocytosis: -WBC of 20 -Increased from 13.9 on 07/05 -No evidence of infection on CXR, UA -No clinical signs of infection -Likely 2/2 rhabdo -Wbc count downtrending with fluids -Blood cultures negative Dysarthria: -2/2 mechanical issues related to hemangioma, dentures -Negative work up (CT head, MRI brain, CT neck, carotid duplex, echo) on previous admission -Follow up with dentist, ENT H/o CVA: -Continue aspirin DVT Ppx: SCDs (No anticoagulants due to reported possible bleeding from hemangioma) Code status: FULL PCP: Marciano Dispo: Pending Anticipate return to long term facility once altered mental status/ behavioral disturbance improves Current Inpatient Medications: Current Inpatient Medications Medications (Trade) Dose Ordered Sig/Mickie Route Start Time Stop Time Status Last Admin Dose Admin Acetaminophen (Tylenol Tab) 650 mg Q4H PRN PO 07/07/17 13:45 08/06/17 13:44 07/10/17 13:57 650 MG Ascorbic Acid (Vitamin C Tab) 500 mg QAM PO 07/08/17 09:00 08/07/17 08:59 07/11/17 07:56 500 MG Aspirin (Ecotrin Tab) 81 mg DAILY PO 07/08/17 09:00 08/07/17 08:59 07/11/17 07:56 81 MG Cyanocobalamin (Vitamin B-12 Tab) 125 mcg QAM PO 07/08/17 09:00 08/07/17 08:59 07/11/17 07:55 125 MCG Loperamide HCl (Imodium Cap) 2 mg Q4 PRN PO 07/07/17 14:30 08/06/17 14:29 Magnesium Hydroxide (Milk Of Magnesia Susp) 30 ml DAILY PRN PO 07/07/17 14:30 08/06/17 14:29 Multivitamins (Multivitamin Tab) 1 tab QAM PO 07/08/17 09:00 08/07/17 08:59 07/11/17 07:55 1 TAB Pyridoxine HCl (Vitamin B-6 Tab) 50 mg QAM PO 07/08/17 09:00 08/07/17 08:59 07/11/17 07:55 50 MG Simethicone (Mylicon Chew Tab) 80 mg QID PO 07/07/17 17:00 08/06/17 16:59 07/11/17 17:22 80 MG Polyethylene (Miralax Powder Packet) 17 gm Q2D PO 07/08/17 09:00 08/07/17 08:59 07/10/17 08:12 17 GM Miscellaneous (Iv Fluids Completed) 1 ea PRN PRN N/A 07/07/17 15:15 07/07/18 15:14 07/11/17 12:44 1 EA Lorazepam (Ativan Tab) 0.5 mg TID PRN PO 07/08/17 09:45 08/07/17 09:44 07/08/17 18:54 0.5 MG Memantine (Namenda Tab) 10 mg BID PO 07/08/17 21:00 08/07/17 20:59 07/11/17 07:56 10 MG Mirtazapine (Remeron Tab) 30 mg HS PO 07/08/17 21:00 08/07/17 20:59 07/10/17 20:46 30 MG Lisinopril (Zestril Tab) 20 mg QAM PO 07/09/17 09:00 08/08/17 08:59 07/11/17 07:55 20 MG Fluphenazine HCl (Prolixin Tab) 10 mg HS PO 07/08/17 21:00 08/07/17 20:59 07/10/17 20:46 10 MG Fluphenazine HCl (Prolixin Tab) 2.5 mg Q6 PRN PO 07/08/17 15:00 08/07/17 14:59 07/10/17 16:27 2.5 MG Clonidine HCl (Catapres Tab) 0.1 mg Q6H PRN PO 07/08/17 17:30 08/07/17 17:29 07/09/17 11:04 0.1 MG Amlodipine Besylate (Norvasc Tab) 10 mg QAM PO 07/10/17 08:00 08/08/17 08:59 07/11/17 07:55 10 MG Lorazepam 0.5 mg/ Syringe 1 ml @ 0.5 mls/min Q6H PRN IV 07/10/17 15:45 08/09/17 15:44 07/10/17 16:07 0.5 MLS/MIN
[2017-07-11] MEDS: MIRTAZAPINE TAB 15 MG TAB PO SCH (21:03)
[2017-07-11] MEDS: FLUPHENAZINE HCL 2.5 MG TAB PO SCH (21:04)
[2017-07-11 22:49] VITALS: BP 158/80; PULSE 78; TEMP 36.9; O2SAT 95
[2017-07-12 07:02] VITALS: BP 136/83; PULSE 83; TEMP 36.9; O2SAT 95
[2017-07-12] MEDS: MEMANTINE 10 MG TAB PO SCH ×2 (07:59→20:10)
[2017-07-12] MEDS: ASPIRIN 81 MG ECTAB PO SCH (07:59)
[2017-07-12] MEDS: PYRIDOXINE HCL 50 MG TAB PO SCH (08:00)
[2017-07-12] MEDS: AMLODIPINE BESYLATE 5 MG TAB PO SCH (08:01)
[2017-07-12] MEDS: CYANOCOBALAMIN 500 MCG TAB (VIT B-12) PO SCH (08:01)
[2017-07-12] MEDS: LISINOPRIL 20 MG TAB PO SCH (08:01)
[2017-07-12] MEDS: MULTIVITAMIN TAB PO SCH (08:01)
[2017-07-12] MEDS: ASCORBIC ACID 500 MG TAB PO SCH (08:02)
[2017-07-12] MEDS: SIMETHICONE 80 MG CHEW PO SCH ×5 (08:02→20:11)
[2017-07-12] MEDS: POLYETHYLENE (MIRALAX) 17 GM PACK PO SCH (08:02)
[2017-07-12 08:09] LABS: BASO % 0.4 %; BASO ABS # 0.05 K/uL (0-0.2); EOS % 4.8 %; HEMATOCRIT 36.6 % (42-52); HEMOGLOBIN 12.8 g/dL (14.0-18.0); IG# 0.08 K/uL (0.00-0.02); LYMPH % 12.7 %; LYMPH ABS # 1.58 K/uL (1.2-3.4); MEAN CELL VOLUME 86.5 fL (80-100); MEAN CORPUSCULAR HEMOGLOBIN 30.3 pg (25-34); MEAN PLATELET VOLUME 8.7 fL (7.4-10.4); MONO % 10.4 %; NEUT % 71.1 %; NEUT ABS # 8.87 K/uL (1.4-6.5); PLATELET COUNT 262 K/uL (130-400); RED CELL DISTRIBUTION WIDTH CV 14.2 % (11.5-14.5); RED CELL DISTRIBUTION WIDTH SD 44.4 fL (36.4-46.3); WHITE BLOOD COUNT 12.48 K/uL (4.8-10.8)
[2017-07-12 08:34] LABS: CALCIUM 8.3 mg/dl (8.5-10.1); CREATININE 0.84 mg/dl (0.60-1.40); POTASSIUM 3.9 mmol/L (3.5-5.1)
--- NOTE | 2017-07-12 10:39 | Clinical Documentation Query ---
MARYBETH Martínez CLINICAL DOCUMENTATION QUERY Patient is a 77 year old male admitted with AMS, agitation, and rhabdomyolysis. H&P documentation included: "Encephalopathy: Likely multifactorial Hold Psych meds Psychiatry consulted " This documentation has not been continued, and essentially has been downgraded back to the symptom of "AMS", the hallmark of encephalopathy. In your clinical opinion is this patient being managed for: ( ) Encephalopathy, POA, resolved (X ) Not Agree ( X ) Other explanation of clinical findings (Please Explain) Patient admitted with paranoia, agitation secondary to lowering the dose of Fluphenazine ( ) Unable to determine (Please Define) ( ) Need to Discuss The medical record reflects the following clinical findings, treatment, and risk factors. Clinical Indicators: As above Treatment: 1:1 observation, psychiatric consultation, medication holds/changes. Risk Factors: As above Please clarify and document your clinical opinion in the progress notes and discharge summary. Terms such as "probable", "suspected", "likely", "questionable", "possible", or "still to be ruled out" are acceptable. IF IN AGREEMENT, YOU MUST DOCUMENT ABOVE DIAGNOSTIC STATEMENT IN DAILY PROGRESS NOTES AND DISCHARGE SUMMARY. This document is not part of the patient's record. Thank You, Sriram Meyer, RN [phone]
[2017-07-12] MEDS: LORAZEPAM INJ 0.5 MG in SYRINGE 0.75 ML IV PRN (14:09)
[2017-07-12] MEDS ORDERED: HALOPERIDOL LACTATE 5 MG/ML 1 ML VIAL ONE (14:23)
[2017-07-12] MEDS ORDERED: HALOPERIDOL LACTATE 5 MG/ML 1 ML VIAL IM STA (14:35)
--- NOTE | 2017-07-12 14:37 | Psych Management Progress Note ---
Psychiatry Miscellaneous Date of Service: Jul 12, 2017. Received message from liaison nurse that Dr. Orr requesting medication recommendations for agitation. Patient is refusing PO medication. Could use IM medication (Haldol or other antipsychotic) if agitation is interfering with care or safety is compromised. Patient is due for Prolixin decanoate on 07/15, and recommend increasing his dose back to 37.5mg. Discussed with pharmacist and it is in stock, and placed order in case he is still here 07/15.
[2017-07-12] MEDS: FLUPHENAZINE HCL 2.5 MG TAB PO SCH (20:11)
[2017-07-12] MEDS: MIRTAZAPINE TAB 15 MG TAB PO SCH (20:13)
--- NOTE | 2017-07-12 20:43 | Progress Note ---
Medicine Progress Note Date & Time of Visit: Jul 12, 2017 at 20:35. Subjective Called by RN as patient was severely agitated, screaming, uncooperative Haldol 2 mg IM and Ativan IV were given Patient improved after On exam, patient was calm, cooperative but seems disoriented and tangential Denies headache, chest pain, shortness of breath Denies abdominal pain, pain of the Guy catheter site No other symptoms Objective Last 8 Hrs Date Time Temp Pulse Resp B/P (MAP) Pulse Ox O2 Delivery O2 Flow Rate FiO2 07/12/17 16:30 Room Air Physical Exam: General-oriented x 1, not in distress, speaks in sentences with no effort Eyes-anicteric Neck- no JVD Lungs-clear BS bilaterally, no rales or wheezes Heart- regular rhythm; no murmur, normal rate Abdomen- normal bowel sounds, soft, nontender, nondistended Guy catheter in place Extremities- no pretibial edema, no calf tenderness Neuro- alert, oriented x 1; mild dysarthria otherwise no gross focal motor or sensory, other neuro deficits Skin- warm & dry Psych-no suicidal ideations, somewhat confused, tangential Laboratory Results: Last 24 Hours Test 07/12/17 07:59 White Blood Count 12.48 K/uL Red Blood Count 4.23 M/uL Hemoglobin 12.8 g/dL Hematocrit 36.6 % Mean Corpuscular Volume 86.5 fL Mean Corpuscular Hemoglobin 30.3 pg Mean Corpuscular Hemoglobin Concent 35.0 g/dl Platelet Count 262 K/uL Mean Platelet Volume 8.7 fL Neutrophils (%) (Auto) 71.1 % Lymphocytes (%) (Auto) 12.7 % Monocytes (%) (Auto) 10.4 % Eosinophils (%) (Auto) 4.8 % Basophils (%) (Auto) 0.4 % Neutrophils # (Auto) 8.87 K/uL Lymphocytes # (Auto) 1.58 K/uL Monocytes # (Auto) 1.30 K/uL Eosinophils # (Auto) 0.60 K/uL Basophils # (Auto) 0.05 K/uL RDW Standard Deviation 44.4 fL RDW Coefficient of Variation 14.2 % Immature Granulocyte % (Auto) 0.6 % Immature Granulocyte # (Auto) 0.08 K/uL Sodium Level 137 mmol/L Potassium Level 3.9 mmol/L Chloride Level 106 mmol/L Carbon Dioxide Level 26 mmol/L Anion Gap 5.0 mmol/L Blood Urea Nitrogen 12 mg/dl Creatinine 0.84 mg/dl Est Creatinine Clear Calc Drug Dose 82.6 ml/min Estimated GFR () 97.9 Estimated GFR (Non- 84.5 BUN/Creatinine Ratio 14.6 Random Glucose 95 mg/dl Calcium Level 8.3 mg/dl Total Creatine Kinase 150 U/L Assessment & Plan Patient is a 77-year-old [facility] resident with a past medical history of cerebrovascular disease, hypertension, possible h/o seizures, dementia and schizoaffective disorder who presents due to AMS and agitation yesterday and was found to have rhabdomyolysis. Acute rhabdomyolysis: -CPK > 10,000 [facility]ed with [facility]- [facility] Patient was noted to be restless yesterday, walking around the room constantly, also crawling on the floor Rhabdomyolysis could be secondary to above -Lipitor was only given once on July 06, 2017 -CPK further trending down, from 10,000 now 150 Was given IV NSS Elevated troponin: - Mild troponin elevation of 0.141--> 0.08 t wave changes in the lateral leads on admission -On hospital day 2, patient reporting chest pain EKG no signs of acute ischemia Troponins trended down already on Aspirin Statin on hold due to Rhabdo Cardiology consulted, appreciate the recommendations Hypertension On lisinopril Increased amlodipine BP improved Continue to monitor As needed clonidine Altered mental status, agitation, paranoia -H/o schizoaffective disorder, dementia --Further information divided from [facility] staff in [facility] Patient was apparently oriented and pleasant at baseline He receives fluphenazine injections IM every 14 days Since decreasing fluphenazine injection in May 2017, patient was noted to be progressively more paranoid --One day prior to admission patient was noted to be paranoid, agitated, uncooperative, restless at the half-way --Psychiatry service consulted for further recommendations Fluphenazine p.o. at bedtime added for the meantime Recommend to resume usual fluphenazine injection dose on July 15, 2017 --Patient still having episodes of paranoia, agitation for the past 2 days Improved with IM Haldol today Psychiatry evaluated the patient recommends as needed p.o. fluphenazine agitation but if not cooperative may use Haldol IM --Continue to monitor as needed Ativan, Haldol Leukocytosis: -WBC of 20 -Increased from 13.9 on 07/05 -No evidence of infection on CXR, UA -No clinical signs of infection -Likely 2/2 rhabdo -Wbc count downtrending with fluids -Blood cultures negative Dysarthria: -2/2 mechanical issues related to hemangioma, dentures -Negative work up (CT head, MRI brain, CT neck, carotid duplex, echo) on previous admission -Follow up with dentist, ENT H/o CVA: -Continue aspirin DVT Ppx: SCDs (No anticoagulants due to reported possible bleeding from hemangioma) Code status: FULL PCP: Marciano Dispo: Pending Anticipate return to [facility] facility once altered mental status/ behavioral disturbance improves Current Inpatient Medications: Current Inpatient Medications Medications (Trade) Dose Ordered Sig/Mickie Route Start Time Stop Time Status Last Admin Dose Admin Acetaminophen (Tylenol Tab) 650 mg Q4H PRN PO 07/07/17 13:45 08/06/17 13:44 07/10/17 13:57 650 MG Ascorbic Acid (Vitamin C Tab) 500 mg QAM PO 07/08/17 09:00 08/07/17 08:59 07/12/17 08:02 500 MG Aspirin (Ecotrin Tab) 81 mg DAILY PO 07/08/17 09:00 08/07/17 08:59 07/12/17 07:59 81 MG Cyanocobalamin (Vitamin B-12 Tab) 125 mcg QAM PO 07/08/17 09:00 08/07/17 08:59 07/12/17 08:01 125 MCG Loperamide HCl (Imodium Cap) 2 mg Q4 PRN PO 07/07/17 14:30 08/06/17 14:29 Magnesium Hydroxide (Milk Of Magnesia Susp) 30 ml DAILY PRN PO 07/07/17 14:30 08/06/17 14:29 Multivitamins (Multivitamin Tab) 1 tab QAM PO 07/08/17 09:00 08/07/17 08:59 07/12/17 08:01 1 TAB Pyridoxine HCl (Vitamin B-6 Tab) 50 mg QAM PO 07/08/17 09:00 08/07/17 08:59 07/12/17 08:00 50 MG Simethicone (Mylicon Chew Tab) 80 mg QID PO 07/07/17 17:00 08/06/17 16:59 07/12/17 20:11 80 MG Polyethylene (Miralax Powder Packet) 17 gm Q2D PO 07/08/17 09:00 08/07/17 08:59 07/12/17 08:02 17 GM Miscellaneous (Iv Fluids Completed) 1 ea PRN PRN N/A 07/07/17 15:15 07/07/18 15:14 07/11/17 12:44 1 EA Lorazepam (Ativan Tab) 0.5 mg TID PRN PO 07/08/17 09:45 08/07/17 09:44 07/08/17 18:54 0.5 MG Memantine (Namenda Tab) 10 mg BID PO 07/08/17 21:00 08/07/17 20:59 07/12/17 20:10 10 MG Mirtazapine (Remeron Tab) 30 mg HS PO 07/08/17 21:00 08/07/17 20:59 07/12/17 20:13 30 MG Lisinopril (Zestril Tab) 20 mg QAM PO 07/09/17 09:00 08/08/17 08:59 07/12/17 08:01 20 MG Fluphenazine HCl (Prolixin Tab) 10 mg HS PO 07/08/17 21:00 08/07/17 20:59 07/12/17 20:11 10 MG Fluphenazine HCl (Prolixin Tab) 2.5 mg Q6 PRN PO 07/08/17 15:00 08/07/17 14:59 07/10/17 16:27 2.5 MG Clonidine HCl (Catapres Tab) 0.1 mg Q6H PRN PO 07/08/17 17:30 08/07/17 17:29 07/09/17 11:04 0.1 MG Amlodipine Besylate (Norvasc Tab) 10 mg QAM PO 07/10/17 08:00 08/08/17 08:59 07/12/17 08:01 10 MG Lorazepam 0.5 mg/ Syringe 1 ml @ 0.5 mls/min Q6H PRN IV 07/10/17 15:45 08/09/17 15:44 07/12/17 14:09 0.5 MLS/MIN Fluphenazine Decanoate (Prolixin Decanoate Inj) 37.5 mg TODAY@0900 IM 07/15/17 09:00 07/15/17 11:00
[2017-07-12 22:30] VITALS: BP 115/71; PULSE 77; TEMP 36.5; O2SAT 94
[2017-07-13 01:00] VITALS: BP 141/72; PULSE 78; TEMP 36.8; O2SAT 95
[2017-07-13 07:16] VITALS: BP 133/84; PULSE 82; TEMP 36.8; O2SAT 95
[2017-07-13 07:45] VITALS: BP 131/83; PULSE 86; TEMP 36.6; O2SAT 96
[2017-07-13 07:51] LABS: BASO % 0.4 %; BASO ABS # 0.06 K/uL (0-0.2); EOS % 3.3 %; EOS ABS # 0.45 K/uL (0-0.5); HEMATOCRIT 36.9 % (42-52); HEMOGLOBIN 12.9 g/dL (14.0-18.0); IG# 0.07 K/uL (0.00-0.02); LYMPH % 9.7 %; LYMPH ABS # 1.32 K/uL (1.2-3.4); MEAN CELL VOLUME 87.2 fL (80-100); MEAN CORPUSCULAR HEMOGLOBIN 30.5 pg (25-34); MONO % 10.4 %; MONO ABS # 1.42 K/uL (0.11-0.59); NEUT % 75.7 %; NEUT ABS # 10.35 K/uL (1.4-6.5); PLATELET COUNT 284 K/uL (130-400); RED CELL DISTRIBUTION WIDTH SD 44.5 fL (36.4-46.3); WHITE BLOOD COUNT 13.67 K/uL (4.8-10.8)
[2017-07-13] MEDS: LISINOPRIL 20 MG TAB PO SCH (08:12)
[2017-07-13] MEDS: MEMANTINE 10 MG TAB PO SCH ×3 (08:12→23:32)
[2017-07-13] MEDS: SIMETHICONE 80 MG CHEW PO SCH ×4 (08:12→20:06)
[2017-07-13] MEDS: AMLODIPINE BESYLATE 5 MG TAB PO SCH (08:12)
[2017-07-13] MEDS: MULTIVITAMIN TAB PO SCH (08:12)
[2017-07-13] MEDS: ASCORBIC ACID 500 MG TAB PO SCH (08:12)
[2017-07-13] MEDS: ASPIRIN 81 MG ECTAB PO SCH (08:13)
[2017-07-13] MEDS: PYRIDOXINE HCL 50 MG TAB PO SCH (08:13)
[2017-07-13] MEDS: CYANOCOBALAMIN 500 MCG TAB (VIT B-12) PO SCH (08:13)
[2017-07-13 08:18] LABS: CALCIUM 8.7 mg/dl (8.5-10.1); CREATININE 0.95 mg/dl (0.60-1.40); POTASSIUM 3.6 mmol/L (3.5-5.1)
--- NOTE | 2017-07-13 10:08 | Clinical Documentation Query ---
KEAGAN Chandler : CLINICAL DOCUMENTATION QUERY Patient is a 77 year old male admitted with AMS, agitation, and rhabdomyolysis. H&P documentation included: "Encephalopathy: Likely multifactorial Hold Psych meds Psychiatry consulted " This documentation has not been continued, and essentially has been downgraded back to the symptom of "AMS", the hallmark of encephalopathy. In your clinical opinion is this patient being managed for: ( X ) Encephalopathy ( ) Not Agree ( ) Other explanation of clinical findings (Please Explain) ( ) Unable to determine (Please Define) ( ) Need to Discuss The medical record reflects the following clinical findings, treatment, and risk factors. Clinical Indicators: As above Treatment: 1:1 observation, psychiatric consultation, medication holds/changes. Risk Factors: As above Please clarify and document your clinical opinion in the progress notes and discharge summary. Terms such as "probable", "suspected", "likely", "questionable", "possible", or "still to be ruled out" are acceptable. IF IN AGREEMENT, YOU MUST DOCUMENT ABOVE DIAGNOSTIC STATEMENT IN DAILY PROGRESS NOTES AND DISCHARGE SUMMARY. This document is not part of the patient's record. Thank You, Sriram eMyer, RN [phone]
[2017-07-13 15:12] VITALS: BP 135/77; PULSE 83; TEMP 36.8; O2SAT 95
[2017-07-13 16:00] VITALS: O2SAT 95
--- NOTE | 2017-07-13 18:15 | Progress Note ---
Subjective Date of Service: Jul 13, 2017. Subjective Pt evaluation today including: conversation w/ patient, physical exam, lab review, review of studies, review of inpatient medication list Saw/examined the patient in room 454 Currently on a one-to-one He is less agitated than previously reported Currently fixated on not wanting to eat fish; no other issues at this time Problem List Medical Problems: (1) Dysphagia Status: Acute (2) Dysphasia Status: Acute (3) Generalized weakness Status: Acute (4) Neck muscle spasm Status: Acute Medications Current Inpatient Medications Medications (Trade) Dose Ordered Sig/Mickie Route Start Time Stop Time Status Last Admin Dose Admin Acetaminophen (Tylenol Tab) 650 mg Q4H PRN PO 07/07/17 13:45 08/06/17 13:44 07/10/17 13:57 650 MG Ascorbic Acid (Vitamin C Tab) 500 mg QAM PO 07/08/17 09:00 08/07/17 08:59 07/13/17 08:12 500 MG Aspirin (Ecotrin Tab) 81 mg DAILY PO 07/08/17 09:00 08/07/17 08:59 07/13/17 08:13 81 MG Cyanocobalamin (Vitamin B-12 Tab) 125 mcg QAM PO 07/08/17 09:00 08/07/17 08:59 07/13/17 08:13 125 MCG Loperamide HCl (Imodium Cap) 2 mg Q4 PRN PO 07/07/17 14:30 08/06/17 14:29 Magnesium Hydroxide (Milk Of Magnesia Susp) 30 ml DAILY PRN PO 07/07/17 14:30 08/06/17 14:29 Multivitamins (Multivitamin Tab) 1 tab QAM PO 07/08/17 09:00 08/07/17 08:59 07/13/17 08:12 1 TAB Pyridoxine HCl (Vitamin B-6 Tab) 50 mg QAM PO 07/08/17 09:00 08/07/17 08:59 07/13/17 08:13 50 MG Simethicone (Mylicon Chew Tab) 80 mg QID PO 07/07/17 17:00 08/06/17 16:59 07/13/17 17:39 80 MG Polyethylene (Miralax Powder Packet) 17 gm Q2D PO 07/08/17 09:00 08/07/17 08:59 07/12/17 08:02 17 GM Miscellaneous (Iv Fluids Completed) 1 ea PRN PRN N/A 07/07/17 15:15 07/07/18 15:14 07/11/17 12:44 1 EA Lorazepam (Ativan Tab) 0.5 mg TID PRN PO 07/08/17 09:45 08/07/17 09:44 07/08/17 18:54 0.5 MG Memantine (Namenda Tab) 10 mg BID PO 07/08/17 21:00 08/07/17 20:59 07/13/17 08:12 10 MG Mirtazapine (Remeron Tab) 30 mg HS PO 07/08/17 21:00 08/07/17 20:59 07/12/17 20:13 30 MG Lisinopril (Zestril Tab) 20 mg QAM PO 07/09/17 09:00 08/08/17 08:59 07/13/17 08:12 20 MG Fluphenazine HCl (Prolixin Tab) 10 mg HS PO 07/08/17 21:00 08/07/17 20:59 07/12/17 20:11 10 MG Fluphenazine HCl (Prolixin Tab) 2.5 mg Q6 PRN PO 07/08/17 15:00 08/07/17 14:59 07/10/17 16:27 2.5 MG Clonidine HCl (Catapres Tab) 0.1 mg Q6H PRN PO 07/08/17 17:30 08/07/17 17:29 07/09/17 11:04 0.1 MG Amlodipine Besylate (Norvasc Tab) 10 mg QAM PO 07/10/17 08:00 08/08/17 08:59 07/13/17 08:12 10 MG Lorazepam 0.5 mg/ Syringe 1 ml @ 0.5 mls/min Q6H PRN IV 07/10/17 15:45 08/09/17 15:44 07/12/17 14:09 0.5 MLS/MIN Fluphenazine Decanoate (Prolixin Decanoate Inj) 37.5 mg TODAY@0900 IM 07/15/17 09:00 07/15/17 11:00 Objective Vital Signs Date Time Temp Pulse Resp B/P (MAP) Pulse Ox O2 Delivery O2 Flow Rate FiO2 07/13/17 16:00 95 Room Air 07/13/17 15:12 36.8 83 20 135/77 (96) 95 Room Air 07/13/17 08:00 Room Air 07/13/17 07:45 36.6 86 18 131/83 (99) 96 Room Air 07/13/17 07:16 36.8 82 20 133/84 (100) 95 07/13/17 01:00 36.8 78 20 141/72 (95) 95 Room Air 07/13/17 00:00 Room Air 07/12/17 22:30 36.5 77 22 115/71 (86) 94 Room Air Physical Exam General Appearance: no apparent distress ENT: + pertinent finding (hemangioma on the R LE) Respiratory/Chest: lungs clear, normal breath sounds, no respiratory distress, no accessory muscle use Cardiovascular: regular rate, rhythm, no edema, no murmur Neurologic/Psychiatric: alert, + disoriented Laboratory Results Last 24 Hours Test 07/13/17 07:29 White Blood Count 13.67 K/uL Red Blood Count 4.23 M/uL Hemoglobin 12.9 g/dL Hematocrit 36.9 % Mean Corpuscular Volume 87.2 fL Mean Corpuscular Hemoglobin 30.5 pg Mean Corpuscular Hemoglobin Concent 35.0 g/dl Platelet Count 284 K/uL Mean Platelet Volume 9.0 fL Neutrophils (%) (Auto) 75.7 % Lymphocytes (%) (Auto) 9.7 % Monocytes (%) (Auto) 10.4 % Eosinophils (%) (Auto) 3.3 % Basophils (%) (Auto) 0.4 % Neutrophils # (Auto) 10.35 K/uL Lymphocytes # (Auto) 1.32 K/uL Monocytes # (Auto) 1.42 K/uL Eosinophils # (Auto) 0.45 K/uL Basophils # (Auto) 0.06 K/uL RDW Standard Deviation 44.5 fL RDW Coefficient of Variation 14.0 % Immature Granulocyte % (Auto) 0.5 % Immature Granulocyte # (Auto) 0.07 K/uL Sodium Level 138 mmol/L Potassium Level 3.6 mmol/L Chloride Level 103 mmol/L Carbon Dioxide Level 27 mmol/L Anion Gap 8.0 mmol/L Blood Urea Nitrogen 10 mg/dl Creatinine 0.95 mg/dl Est Creatinine Clear Calc Drug Dose 73.0 ml/min Estimated GFR () 89.1 Estimated GFR (Non- 76.9 BUN/Creatinine Ratio 10.9 Random Glucose 105 mg/dl Calcium Level 8.7 mg/dl Total Creatine Kinase 169 U/L Assessment and Plan Patient is a 77 year old male from [facility] - with a past medical history of schizoaffective disorder, vascular dementia, hx. of CVA, hx. of possible seizures, HTN - presents with altered mental status/agitation and found to have rhabdomyolysis. Acute Rhabdomyolysis - resolved - CPK on admission >10,000 - patient was agitated on admission; as per [facility] nursing, he was crawling on the floor - was given IVFs; CPK trended downwards, now wnl Elevated Troponin - trended downwards - likely secondary to rhabdo - appreciate cardiology input - continue aspirin, could restart statin on discharge as rhabdo has resolved Delirium in the setting of Schizoaffective Disorder Hx. of Vascular Dementia and Hx. of prior CVA - Hx. of schizoaffective disorder, dementia - patient was at baseline prior to fluphenazine dose decrease (in May 2017) - now more paranoid - appreciate mental health input, fluphenazine increased, injection due on 07/15 - PO fluphenazine at night - IM Haldol as needed for agitation, Ativan as needed as well - once off of one-to-one - can likely d/c back to [facility] - continue aspirin HTN - amlodipine up to 10mg daily - lisinopril 20mg daily, monitor - if BP continues to be elevated, will increase to 40mg daily Leukocytosis - improving - likely secondary to rhabdo Dysarthria - outpatient ENT/dental input DVT ppx - SCDs FULL CODE
[2017-07-13] MEDS: FLUPHENAZINE HCL 2.5 MG TAB PO SCH (21:47)
[2017-07-13] MEDS: MIRTAZAPINE TAB 15 MG TAB PO SCH ×2 (21:47→23:32)
[2017-07-13] MEDS: LORAZEPAM 0.5 MG TAB PO PRN (23:33)
[2017-07-13] MEDS: ACETAMINOPHEN 325 MG TAB PO PRN (23:33)
[2017-07-14 00:12] VITALS: BP 147/73; PULSE 92; TEMP 37; O2SAT 96
[2017-07-14 07:30] LABS: CREATININE 0.99 mg/dl (0.60-1.40)
[2017-07-14 07:45] LABS: HEMATOCRIT 38.8 % (42-52); HEMOGLOBIN 13.5 g/dL (14.0-18.0); MEAN CELL VOLUME 87.4 fL (80-100); MEAN CORPUSCULAR HEMOGLOBIN 30.4 pg (25-34); MEAN CORPUSCULAR HGB CONC 34.8 g/dl (32-36); MEAN PLATELET VOLUME 9.3 fL (7.4-10.4); PLATELET COUNT 307 K/uL (130-400); WHITE BLOOD COUNT 27.98 K/uL (4.8-10.8)
[2017-07-14 08:08] VITALS: BP 159/76; PULSE 104; TEMP 36.8; O2SAT 94
[2017-07-14] MEDS: LORAZEPAM 0.5 MG TAB PO PRN (08:09)
[2017-07-14] MEDS: ASCORBIC ACID 500 MG TAB PO SCH (08:10)
[2017-07-14] MEDS: ASPIRIN 81 MG ECTAB PO SCH (08:10)
[2017-07-14] MEDS: SIMETHICONE 80 MG CHEW PO SCH ×4 (08:10→20:13)
[2017-07-14] MEDS: PYRIDOXINE HCL 50 MG TAB PO SCH (08:10)
[2017-07-14] MEDS: MEMANTINE 10 MG TAB PO SCH ×2 (08:10→20:14)
[2017-07-14] MEDS: ACETAMINOPHEN 325 MG TAB PO PRN ×3 (08:10→21:39)
[2017-07-14] MEDS: CYANOCOBALAMIN 500 MCG TAB (VIT B-12) PO SCH (08:11)
[2017-07-14] MEDS: AMLODIPINE BESYLATE 5 MG TAB PO SCH (08:11)
[2017-07-14] MEDS: POLYETHYLENE (MIRALAX) 17 GM PACK PO SCH (08:11)
[2017-07-14] MEDS: LISINOPRIL 20 MG TAB PO SCH (08:11)
[2017-07-14] MEDS: MULTIVITAMIN TAB PO SCH (08:11)
[2017-07-14 08:14] LABS: POTASSIUM 3.8 mmol/L (3.5-5.1)
[2017-07-14] MEDS ORDERED: SODIUM CHLORIDE 0.9% 1000ML 1,000 ML IV SCH (14:45)
[2017-07-14] MEDS ORDERED: MAGNESIUM SULFATE 1GM / D5W 1 GM in PREMIXED IN D5W 100 ML IV ONE (14:45)
[2017-07-14 14:50] VITALS: BP 101/59; PULSE 85; TEMP 39; O2SAT 92
--- NOTE | 2017-07-14 15:28 | Progress Note ---
Subjective Date of Service: Jul 14, 2017. Subjective Pt evaluation today including: conversation w/ patient, physical exam, lab review, review of studies, review of inpatient medication list Saw/examined the patient in room 454 he is tired today; weak, appears short of breath with exertion white count elevated today, spiked a fever Linda from [facility] came to evaluate the patient; tells me that this is not his baseline he is requiring help with ambulation Problem List Medical Problems: (1) Dysphagia Status: Acute (2) Dysphasia Status: Acute (3) Generalized weakness Status: Acute (4) Neck muscle spasm Status: Acute Medications Current Inpatient Medications Medications (Trade) Dose Ordered Sig/Mickie Route Start Time Stop Time Status Last Admin Dose Admin Acetaminophen (Tylenol Tab) 650 mg Q4H PRN PO 07/07/17 13:45 08/06/17 13:44 07/14/17 14:41 650 MG Ascorbic Acid (Vitamin C Tab) 500 mg QAM PO 07/08/17 09:00 08/07/17 08:59 07/14/17 08:10 500 MG Aspirin (Ecotrin Tab) 81 mg DAILY PO 07/08/17 09:00 08/07/17 08:59 07/14/17 08:10 81 MG Cyanocobalamin (Vitamin B-12 Tab) 125 mcg QAM PO 07/08/17 09:00 08/07/17 08:59 07/14/17 08:11 125 MCG Loperamide HCl (Imodium Cap) 2 mg Q4 PRN PO 07/07/17 14:30 08/06/17 14:29 Magnesium Hydroxide (Milk Of Magnesia Susp) 30 ml DAILY PRN PO 07/07/17 14:30 08/06/17 14:29 Multivitamins (Multivitamin Tab) 1 tab QAM PO 07/08/17 09:00 08/07/17 08:59 07/14/17 08:11 1 TAB Pyridoxine HCl (Vitamin B-6 Tab) 50 mg QAM PO 07/08/17 09:00 08/07/17 08:59 07/14/17 08:10 50 MG Simethicone (Mylicon Chew Tab) 80 mg QID PO 07/07/17 17:00 08/06/17 16:59 07/14/17 08:10 80 MG Polyethylene (Miralax Powder Packet) 17 gm Q2D PO 07/08/17 09:00 08/07/17 08:59 07/14/17 08:11 17 GM Miscellaneous (Iv Fluids Completed) 1 ea PRN PRN N/A 07/07/17 15:15 07/07/18 15:14 07/11/17 12:44 1 EA Lorazepam (Ativan Tab) 0.5 mg TID PRN PO 07/08/17 09:45 08/07/17 09:44 07/14/17 08:09 0.5 MG Memantine (Namenda Tab) 10 mg BID PO 07/08/17 21:00 08/07/17 20:59 07/14/17 08:10 10 MG Mirtazapine (Remeron Tab) 30 mg HS PO 07/08/17 21:00 08/07/17 20:59 07/13/17 23:32 30 MG Lisinopril (Zestril Tab) 20 mg QAM PO 07/09/17 09:00 08/08/17 08:59 07/14/17 08:11 20 MG Fluphenazine HCl (Prolixin Tab) 10 mg HS PO 07/08/17 21:00 08/07/17 20:59 07/12/17 20:11 10 MG Fluphenazine HCl (Prolixin Tab) 2.5 mg Q6 PRN PO 07/08/17 15:00 08/07/17 14:59 07/10/17 16:27 2.5 MG Amlodipine Besylate (Norvasc Tab) 10 mg QAM PO 07/10/17 08:00 08/08/17 08:59 07/14/17 08:11 10 MG Lorazepam 0.5 mg/ Syringe 1 ml @ 0.5 mls/min Q6H PRN IV 07/10/17 15:45 08/09/17 15:44 07/12/17 14:09 0.5 MLS/MIN Fluphenazine Decanoate (Prolixin Decanoate Inj) 37.5 mg TODAY@0900 IM 07/15/17 09:00 07/15/17 11:00 Magnesium Sulfate 1 gm/Prmx 100 ml @ 100 mls/hr TODAY@1445 ONCE IV 07/14/17 14:45 07/14/17 15:44 07/14/17 15:06 100 MLS/HR Sodium Chloride 1,000 ml @ 80 mls/hr [id number] IV 07/14/17 14:45 07/15/17 03:14 07/14/17 15:06 80 MLS/HR Objective Vital Signs Date Time Temp Pulse Resp B/P (MAP) Pulse Ox O2 Delivery O2 Flow Rate FiO2 07/14/17 14:50 39.0 85 22 101/59 (73) 92 Room Air 07/14/17 08:08 36.8 104 22 159/76 (103) 94 Room Air 07/14/17 08:00 Room Air 07/14/17 00:50 Room Air 07/14/17 00:12 37.0 92 20 147/73 (97) 96 Room Air 07/13/17 16:00 95 Room Air Physical Exam General Appearance: no apparent distress Respiratory/Chest: chest non-tender, lungs clear, normal breath sounds, no respiratory distress, no accessory muscle use Cardiovascular: regular rate, rhythm, no edema, no murmur Extremities: normal inspection, no pedal edema Neurologic/Psychiatric: alert Laboratory Results Last 24 Hours Test 07/14/17 06:29 07/14/17 07:43 07/14/17 15:13 White Blood Count 27.98 K/uL Red Blood Count 4.44 M/uL Hemoglobin 13.5 g/dL Hematocrit 38.8 % Mean Corpuscular Volume 87.4 fL Mean Corpuscular Hemoglobin 30.4 pg Mean Corpuscular Hemoglobin Concent 34.8 g/dl RDW Standard Deviation 45.0 fL RDW Coefficient of Variation 14.0 % Platelet Count 307 K/uL Mean Platelet Volume 9.3 fL Sodium Level 136 mmol/L Potassium Level mmol/L 3.8 mmol/L Chloride Level 104 mmol/L Carbon Dioxide Level 27 mmol/L Anion Gap 5.0 mmol/L Blood Urea Nitrogen 14 mg/dl Creatinine 0.99 mg/dl Est Creatinine Clear Calc Drug Dose 70.1 ml/min Estimated GFR () 84.8 Estimated GFR (Non- 73.2 BUN/Creatinine Ratio 13.6 Random Glucose 97 mg/dl Calcium Level 9.0 mg/dl Magnesium Level mg/dl 1.6 mg/dl Total Creatine Kinase U/L 86 U/L Assessment and Plan Patient is a 77 year old male from [facility] - with a past medical history of schizoaffective disorder, vascular dementia, hx. of CVA, hx. of possible seizures, HTN - presents with altered mental status/agitation and found to have rhabdomyolysis. Dyspnea with Exertion - patient with worsening shortness of breath, LING - white count elevation, spiked a fever - will check an CXR - added IVFs - give Mg Acute Rhabdomyolysis - resolved - CPK on admission >10,000 - patient was agitated on admission; as per [facility] nursing, he was crawling on the floor - was given IVFs; CPK trended downwards, now wnl Elevated Troponin - trended downwards - likely secondary to rhabdo - appreciate cardiology input - continue aspirin, could restart statin on discharge as rhabdo has resolved Delirium in the setting of Schizoaffective Disorder Hx. of Vascular Dementia and Hx. of prior CVA - Hx. of schizoaffective disorder, dementia - patient was at baseline prior to fluphenazine dose decrease (in May 2017) - now more paranoid - appreciate mental health input, fluphenazine increased, injection due on 07/15 - PO fluphenazine at night - IM Haldol as needed for agitation, Ativan as needed as well - once off of one-to-one - can likely d/c back to [facility] - continue aspirin HTN - amlodipine up to 10mg daily - lisinopril 20mg daily, monitor - if BP continues to be elevated, will increase to 40mg daily Leukocytosis - improving - likely secondary to rhabdo Dysarthria - outpatient ENT/dental input DVT ppx - SCDs FULL CODE
[2017-07-14 16:00] VITALS: TEMP 37.8
--- NOTE | 2017-07-14 17:23 | DIAGNOSTIC IMAGING REPORT ---
CHEST ONE VIEW PORTABLE CLINICAL HISTORY: r/o pna COMPARISON STUDY: Chest radiograph July 08, 2017. FINDINGS: Evaluation was suboptimal due to difficulty positioning. No pneumothorax is noted. There is no evidence for pulmonary edema. Cardiomediastinal silhouette is unremarkable allowing for mild patient rotation. Note is made of a small left pleural effusion. No consolidation. IMPRESSION: 1. Small left pleural effusion. 2. No consolidation to suggest pneumonia. Electronically signed by: Aaron Killian M.D. 07/14/2017 5:22 PM Dictated Date/Time: 07/14/2017 5:21 PM
[2017-07-14] MEDS ORDERED: CEFTRIAXONE SOD INJ 1 GM in DEXTROSE 5% ADD-VANTAGE 50ML 50 ML IV SCH (18:00)
[2017-07-14] MEDS: MIRTAZAPINE TAB 15 MG TAB PO SCH (20:14)
[2017-07-14] MEDS: FLUPHENAZINE HCL 2.5 MG TAB PO SCH (20:15)
[2017-07-14 21:38] VITALS: TEMP 38.5
[2017-07-14 22:56] VITALS: BP 137/78; PULSE 94; TEMP 38.7; O2SAT 99
[2017-07-14] MEDS ORDERED: ACETAMINOPHEN 325 MG TAB PO ONE (23:45)
[2017-07-14] MEDS ORDERED: NURSING VERBAL MED ORDER ONE (23:45)
[2017-07-15 01:45] VITALS: TEMP 37.5; TEMP 38.2
[2017-07-15 05:23] VITALS: TEMP 37.9
[2017-07-15 06:57] VITALS: BP 104/61; PULSE 86; TEMP 36.5; O2SAT 94
[2017-07-15] MEDS: CYANOCOBALAMIN 500 MCG TAB (VIT B-12) PO SCH (07:56)
[2017-07-15] MEDS: MEMANTINE 10 MG TAB PO SCH ×2 (07:56→21:11)
[2017-07-15] MEDS: ASCORBIC ACID 500 MG TAB PO SCH (07:56)
[2017-07-15] MEDS: SIMETHICONE 80 MG CHEW PO SCH ×4 (07:56→21:11)
[2017-07-15] MEDS: LISINOPRIL 20 MG TAB PO SCH (07:56)
[2017-07-15] MEDS: PYRIDOXINE HCL 50 MG TAB PO SCH (07:56)
[2017-07-15] MEDS: ASPIRIN 81 MG ECTAB PO SCH (07:57)
[2017-07-15] MEDS: MULTIVITAMIN TAB PO SCH (07:57)
[2017-07-15] MEDS: AMLODIPINE BESYLATE 5 MG TAB PO SCH (07:57)
[2017-07-15 08:00] VITALS: O2SAT 94
[2017-07-15 08:33] LABS: BASO % 0.1 %; BASO ABS # 0.05 K/uL (0-0.2); EOS ABS # 0.01 K/uL (0-0.5); HEMATOCRIT 35.1 % (42-52); IG# 0.36 K/uL (0.00-0.02); LYMPH % 3.4 %; MEAN CELL VOLUME 88.4 fL (80-100); MEAN CORPUSCULAR HEMOGLOBIN 30.2 pg (25-34); MEAN CORPUSCULAR HGB CONC 34.2 g/dl (32-36); MEAN PLATELET VOLUME 9.5 fL (7.4-10.4); MONO ABS # 2.91 K/uL (0.11-0.59); NEUT % 88.6 %; NEUT ABS # 36.91 K/uL (1.4-6.5); PLATELET COUNT 235 K/uL (130-400); RED CELL DISTRIBUTION WIDTH CV 14.2 % (11.5-14.5); RED CELL DISTRIBUTION WIDTH SD 46.8 fL (36.4-46.3); WHITE BLOOD COUNT 41.64 K/uL (4.8-10.8)
[2017-07-15 08:35] LABS: CALCIUM 8.4 mg/dl (8.5-10.1); CREATININE 1.7 mg/dl (0.60-1.40); POTASSIUM 3.9 mmol/L (3.5-5.1)
[2017-07-15] MEDS: ACETAMINOPHEN 325 MG TAB PO PRN (08:36)
[2017-07-15] MEDS ORDERED: FLUPHENAZINE DECANOATE 25 MG/ML IM SCH (09:00)
[2017-07-15] MEDS ORDERED: ERTAPENEM IV 1 GM in SODIUM CHLOR 0.9% AD-VAN 50ML 50 ML IV SCH (09:15)
[2017-07-15] MEDS ORDERED: CEFEPIME IV 2,000 MG in SYRINGE 7.5 ML IV ONE (09:30)
[2017-07-15] MEDS: SODIUM CHLORIDE 0.9% 1000ML 1,000 ML IV SCH ×3 (09:51→23:37)
[2017-07-15 15:23] VITALS: BP 144/69; PULSE 91; TEMP 37; O2SAT 98
[2017-07-15 16:02] LABS: CREATININE 1.54 mg/dl (0.60-1.40); POTASSIUM 3.9 mmol/L (3.5-5.1)
--- NOTE | 2017-07-15 17:12 | Progress Note ---
Subjective Date of Service: Jul 15, 2017. Subjective Pt evaluation today including: conversation w/ patient, physical exam, lab review, review of studies, review of inpatient medication list Saw/examined the patient in room 454 Pleasantly demented Denies urinary issues, denies pain As per nursing, he has had urinary retention Problem List Medical Problems: (1) Dysphagia Status: Acute (2) Dysphasia Status: Acute (3) Generalized weakness Status: Acute (4) Neck muscle spasm Status: Acute Medications Current Inpatient Medications Medications (Trade) Dose Ordered Sig/Mickie Route Start Time Stop Time Status Last Admin Dose Admin Acetaminophen (Tylenol Tab) 650 mg Q4H PRN PO 07/07/17 13:45 08/06/17 13:44 07/15/17 08:36 650 MG Ascorbic Acid (Vitamin C Tab) 500 mg QAM PO 07/08/17 09:00 08/07/17 08:59 07/15/17 07:56 500 MG Aspirin (Ecotrin Tab) 81 mg DAILY PO 07/08/17 09:00 08/07/17 08:59 07/15/17 07:57 81 MG Cyanocobalamin (Vitamin B-12 Tab) 125 mcg QAM PO 07/08/17 09:00 08/07/17 08:59 07/15/17 07:56 125 MCG Loperamide HCl (Imodium Cap) 2 mg Q4 PRN PO 07/07/17 14:30 08/06/17 14:29 Magnesium Hydroxide (Milk Of Magnesia Susp) 30 ml DAILY PRN PO 07/07/17 14:30 08/06/17 14:29 Multivitamins (Multivitamin Tab) 1 tab QAM PO 07/08/17 09:00 08/07/17 08:59 07/15/17 07:57 1 TAB Pyridoxine HCl (Vitamin B-6 Tab) 50 mg QAM PO 07/08/17 09:00 08/07/17 08:59 07/15/17 07:56 50 MG Simethicone (Mylicon Chew Tab) 80 mg QID PO 07/07/17 17:00 08/06/17 16:59 07/15/17 12:14 80 MG Polyethylene (Miralax Powder Packet) 17 gm Q2D PO 07/08/17 09:00 08/07/17 08:59 07/14/17 08:11 17 GM Miscellaneous (Iv Fluids Completed) 1 ea PRN PRN N/A 07/07/17 15:15 07/07/18 15:14 07/11/17 12:44 1 EA Lorazepam (Ativan Tab) 0.5 mg TID PRN PO 07/08/17 09:45 08/07/17 09:44 07/14/17 08:09 0.5 MG Memantine (Namenda Tab) 10 mg BID PO 07/08/17 21:00 08/07/17 20:59 07/15/17 07:56 10 MG Mirtazapine (Remeron Tab) 30 mg HS PO 07/08/17 21:00 08/07/17 20:59 07/14/17 20:14 30 MG Lisinopril (Zestril Tab) 20 mg QAM PO 07/09/17 09:00 08/08/17 08:59 07/15/17 07:56 20 MG Fluphenazine HCl (Prolixin Tab) 10 mg HS PO 07/08/17 21:00 08/07/17 20:59 07/14/17 20:15 10 MG Fluphenazine HCl (Prolixin Tab) 2.5 mg Q6 PRN PO 07/08/17 15:00 08/07/17 14:59 07/10/17 16:27 2.5 MG Amlodipine Besylate (Norvasc Tab) 10 mg QAM PO 07/10/17 08:00 08/08/17 08:59 07/15/17 07:57 10 MG Lorazepam 0.5 mg/ Syringe 1 ml @ 0.5 mls/min Q6H PRN IV 07/10/17 15:45 08/09/17 15:44 07/12/17 14:09 0.5 MLS/MIN Sodium Chloride 1,000 ml @ 150 mls/hr Q6H40M IV 07/15/17 09:15 08/14/17 09:14 07/15/17 09:51 150 MLS/HR Cefepime HCl 2000 mg/Syringe 20 ml @ 5 mls/min Q24H IV 07/16/17 09:00 07/26/17 08:59 Objective Vital Signs Date Time Temp Pulse Resp B/P (MAP) Pulse Ox O2 Delivery O2 Flow Rate FiO2 07/15/17 15:23 37.0 91 22 144/69 (94) 98 Room Air 07/15/17 08:00 94 Room Air 07/15/17 06:57 36.5 86 18 104/61 (75) 94 Room Air 07/15/17 05:23 37.9 18 01:45 38.2 07/15/17 01:45 37.5 07/15/17 01:00 Room Air 07/14/17 22:56 38.7 94 16 137/78 (97) 99 Room Air 07/14/17 21:38 38.5 Physical Exam General Appearance: no apparent distress, + pertinent finding (pleasantly demented) ENT: + pertinent finding (edentulous; swelling of the R upper lip) Respiratory/Chest: no respiratory distress, no accessory muscle use Cardiovascular: regular rate, rhythm, no edema, no murmur Extremities: normal inspection, no pedal edema Laboratory Results Last 24 Hours Test 07/15/17 07:23 07/15/17 15:31 White Blood Count 41.64 K/uL Red Blood Count 3.97 M/uL Hemoglobin 12.0 g/dL Hematocrit 35.1 % Mean Corpuscular Volume 88.4 fL Mean Corpuscular Hemoglobin 30.2 pg Mean Corpuscular Hemoglobin Concent 34.2 g/dl Platelet Count 235 K/uL Mean Platelet Volume 9.5 fL Neutrophils (%) (Auto) 88.6 % Lymphocytes (%) (Auto) 3.4 % Monocytes (%) (Auto) 7.0 % Eosinophils (%) (Auto) 0.0 % Basophils (%) (Auto) 0.1 % Neutrophils # (Auto) 36.91 K/uL Lymphocytes # (Auto) 1.40 K/uL Monocytes # (Auto) 2.91 K/uL Eosinophils # (Auto) 0.01 K/uL Basophils # (Auto) 0.05 K/uL RDW Standard Deviation 46.8 fL RDW Coefficient of Variation 14.2 % Immature Granulocyte % (Auto) 0.9 % Immature Granulocyte # (Auto) 0.36 K/uL Sodium Level 135 mmol/L 137 mmol/L Potassium Level 3.9 mmol/L 3.9 mmol/L Chloride Level 104 mmol/L 108 mmol/L Carbon Dioxide Level 24 mmol/L 24 mmol/L Anion Gap 8.0 mmol/L 5.0 mmol/L Blood Urea Nitrogen 25 mg/dl 31 mg/dl Creatinine 1.70 mg/dl 1.54 mg/dl Est Creatinine Clear Calc Drug Dose 40.8 ml/min 45.0 ml/min Estimated GFR () 44.1 49.7 Estimated GFR (Non- 38.1 42.9 BUN/Creatinine Ratio 14.5 20.2 Random Glucose 115 mg/dl 127 mg/dl Calcium Level 8.4 mg/dl 8.0 mg/dl Magnesium Level 1.8 mg/dl Total Creatine Kinase 63 U/L Assessment and Plan Patient is a 77 year old male from [facility] - with a past medical history of schizoaffective disorder, vascular dementia, hx. of CVA, hx. of possible seizures, HTN - presents with altered mental status/agitation and found to have rhabdomyolysis. Urinary Tract Infection Urinary Retention Acute Kidney Injury - creatinine rising as of 07/15, Guy catheter was removed on 07/14 - UA on 07/14 - dirty, urine culture - E. coli - currently on Cefepime, will await sensitivities - added IVFs, monitor for urine output, if continues to be low, may need Guy, but avoiding it for now - white count up to >40k, will recheck in AM Dyspnea with Exertion - patient with worsening shortness of breath, LING - white count elevation, spiked a fever - will check an CXR - added IVFs - give Mg Acute Rhabdomyolysis - resolved - CPK on admission >10,000 - patient was agitated on admission; as per [facility] nursing, he was crawling on the floor - was given IVFs; CPK trended downwards, now wnl Elevated Troponin - trended downwards - likely secondary to rhabdo - appreciate cardiology input - continue aspirin, could restart statin on discharge as rhabdo has resolved Delirium in the setting of Schizoaffective Disorder Hx. of Vascular Dementia and Hx. of prior CVA - Hx. of schizoaffective disorder, dementia - patient was at baseline prior to fluphenazine dose decrease (in May 2017) - now more paranoid - appreciate mental health input, fluphenazine increased, injection due on 07/15 - PO fluphenazine at night - IM Haldol as needed for agitation, Ativan as needed as well - once off of one-to-one - can likely d/c back to [facility] - continue aspirin HTN - amlodipine up to 10mg daily - lisinopril 20mg daily, monitor - if BP continues to be elevated, will increase to 40mg daily Leukocytosis - improving - likely secondary to rhabdo Dysarthria - outpatient ENT/dental input DVT ppx - SCDs FULL CODE
[2017-07-15] MEDS: FLUPHENAZINE HCL 2.5 MG TAB PO SCH (21:10)
[2017-07-15] MEDS: MIRTAZAPINE TAB 15 MG TAB PO SCH (21:10)
[2017-07-15 23:18] VITALS: BP 163/94; PULSE 105; TEMP 36.6; O2SAT 95
[2017-07-16] MEDS: SODIUM CHLORIDE 0.9% 1000ML 1,000 ML IV SCH ×4 (05:06→22:49)
[2017-07-16 07:26] VITALS: BP 158/78; PULSE 104; TEMP 36.9; O2SAT 92
[2017-07-16 08:00] VITALS: O2SAT 92
[2017-07-16] MEDS: ASPIRIN 81 MG ECTAB PO SCH (08:10)
[2017-07-16] MEDS: ASCORBIC ACID 500 MG TAB PO SCH (08:10)
[2017-07-16] MEDS: CYANOCOBALAMIN 500 MCG TAB (VIT B-12) PO SCH (08:10)
[2017-07-16] MEDS: AMLODIPINE BESYLATE 5 MG TAB PO SCH (08:10)
[2017-07-16] MEDS: PYRIDOXINE HCL 50 MG TAB PO SCH (08:10)
[2017-07-16] MEDS: SIMETHICONE 80 MG CHEW PO SCH ×4 (08:10→20:22)
[2017-07-16] MEDS: MEMANTINE 10 MG TAB PO SCH ×2 (08:11→20:22)
[2017-07-16] MEDS: LISINOPRIL 20 MG TAB PO SCH (08:11)
[2017-07-16] MEDS: MULTIVITAMIN TAB PO SCH (08:11)
[2017-07-16] MEDS: POLYETHYLENE (MIRALAX) 17 GM PACK PO SCH (08:11)
[2017-07-16] MEDS: CEFEPIME IV 2,000 MG in SYRINGE 7.5 ML IV SCH (08:17)
[2017-07-16] MEDS: LORAZEPAM 0.5 MG TAB PO PRN (08:17)
[2017-07-16] MEDS: FLUPHENAZINE HCL 2.5 MG TAB PO PRN (08:33)
[2017-07-16 08:49] LABS: HEMATOCRIT 35.8 % (42-52); HEMOGLOBIN 12.3 g/dL (14.0-18.0); MEAN CELL VOLUME 87.1 fL (80-100); MEAN CORPUSCULAR HEMOGLOBIN 29.9 pg (25-34); MEAN CORPUSCULAR HGB CONC 34.4 g/dl (32-36); MEAN PLATELET VOLUME 9.7 fL (7.4-10.4); PLATELET COUNT 299 K/uL (130-400); RED CELL DISTRIBUTION WIDTH CV 14.2 % (11.5-14.5); RED CELL DISTRIBUTION WIDTH SD 45.7 fL (36.4-46.3)
[2017-07-16 08:53] LABS: CALCIUM 8.3 mg/dl (8.5-10.1); CREATININE 1.06 mg/dl (0.60-1.40); POTASSIUM 3.6 mmol/L (3.5-5.1)
[2017-07-16] MEDS: ACETAMINOPHEN 325 MG TAB PO PRN (13:47)
[2017-07-16 14:51] VITALS: BP 130/68; PULSE 100; TEMP 36.9; O2SAT 93
--- NOTE | 2017-07-16 16:56 | Progress Note ---
Subjective Date of Service: Jul 16, 2017. Subjective Pt evaluation today including: conversation w/ patient, physical exam, lab review, review of studies, review of inpatient medication list Saw/examined the patient in room 454 He is very confused and agitated; pulling on his IV lines one-to-one now in the room with him Problem List Medical Problems: (1) Dysphagia Status: Acute (2) Dysphasia Status: Acute (3) Generalized weakness Status: Acute (4) Neck muscle spasm Status: Acute Medications Current Inpatient Medications Medications (Trade) Dose Ordered Sig/Mickie Route Start Time Stop Time Status Last Admin Dose Admin Acetaminophen (Tylenol Tab) 650 mg Q4H PRN PO 07/07/17 13:45 08/06/17 13:44 07/16/17 13:47 650 MG Ascorbic Acid (Vitamin C Tab) 500 mg QAM PO 07/08/17 09:00 08/07/17 08:59 07/16/17 08:10 500 MG Aspirin (Ecotrin Tab) 81 mg DAILY PO 07/08/17 09:00 08/07/17 08:59 07/16/17 08:10 81 MG Cyanocobalamin (Vitamin B-12 Tab) 125 mcg QAM PO 07/08/17 09:00 08/07/17 08:59 07/16/17 08:10 125 MCG Loperamide HCl (Imodium Cap) 2 mg Q4 PRN PO 07/07/17 14:30 08/06/17 14:29 Magnesium Hydroxide (Milk Of Magnesia Susp) 30 ml DAILY PRN PO 07/07/17 14:30 08/06/17 14:29 Multivitamins (Multivitamin Tab) 1 tab QAM PO 07/08/17 09:00 08/07/17 08:59 07/16/17 08:11 1 TAB Pyridoxine HCl (Vitamin B-6 Tab) 50 mg QAM PO 07/08/17 09:00 08/07/17 08:59 07/16/17 08:10 50 MG Simethicone (Mylicon Chew Tab) 80 mg QID PO 07/07/17 17:00 08/06/17 16:59 07/16/17 12:51 80 MG Polyethylene (Miralax Powder Packet) 17 gm Q2D PO 07/08/17 09:00 08/07/17 08:59 07/16/17 08:11 17 GM Miscellaneous (Iv Fluids Completed) 1 ea PRN PRN N/A 07/07/17 15:15 07/07/18 15:14 07/11/17 12:44 1 EA Lorazepam (Ativan Tab) 0.5 mg TID PRN PO 07/08/17 09:45 08/07/17 09:44 07/16/17 08:17 0.5 MG Memantine (Namenda Tab) 10 mg BID PO 07/08/17 21:00 08/07/17 20:59 07/16/17 08:11 10 MG Mirtazapine (Remeron Tab) 30 mg HS PO 07/08/17 21:00 08/07/17 20:59 07/15/17 21:10 30 MG Lisinopril (Zestril Tab) 20 mg QAM PO 07/09/17 09:00 08/08/17 08:59 07/16/17 08:11 20 MG Fluphenazine HCl (Prolixin Tab) 10 mg HS PO 07/08/17 21:00 08/07/17 20:59 07/15/17 21:10 10 MG Fluphenazine HCl (Prolixin Tab) 2.5 mg Q6 PRN PO 07/08/17 15:00 08/07/17 14:59 07/16/17 08:33 2.5 MG Amlodipine Besylate (Norvasc Tab) 10 mg QAM PO 07/10/17 08:00 08/08/17 08:59 07/16/17 08:10 10 MG Lorazepam 0.5 mg/ Syringe 1 ml @ 0.5 mls/min Q6H PRN IV 07/10/17 15:45 08/09/17 15:44 07/12/17 14:09 0.5 MLS/MIN Sodium Chloride 1,000 ml @ 150 mls/hr Q6H40M IV 07/15/17 09:15 08/14/17 09:14 07/16/17 15:57 150 MLS/HR Cefepime HCl 2000 mg/Syringe 20 ml @ 5 mls/min Q24H IV 07/16/17 09:00 07/26/17 08:59 07/16/17 08:17 5 MLS/MIN Objective Vital Signs Date Time Temp Pulse Resp B/P (MAP) Pulse Ox O2 Delivery O2 Flow Rate FiO2 07/16/17 16:00 Room Air 07/16/17 14:51 36.9 100 24 130/68 (88) 93 Room Air 07/16/17 08:00 92 Room Air 07/16/17 07:26 36.9 104 22 158/78 (104) 92 Room Air 07/15/17 23:59 Room Air 07/15/17 23:18 36.6 105 20 163/94 (117) 95 Room Air Physical Exam General Appearance: no apparent distress Cardiovascular: regular rate, rhythm, no edema, no murmur Extremities: normal inspection, no pedal edema Neurologic/Psychiatric: no motor/sensory deficits, alert, normal mood/affect Laboratory Results Last 24 Hours Test 07/16/17 07:45 White Blood Count 32.00 K/uL Red Blood Count 4.11 M/uL Hemoglobin 12.3 g/dL Hematocrit 35.8 % Mean Corpuscular Volume 87.1 fL Mean Corpuscular Hemoglobin 29.9 pg Mean Corpuscular Hemoglobin Concent 34.4 g/dl RDW Standard Deviation 45.7 fL RDW Coefficient of Variation 14.2 % Platelet Count 299 K/uL Mean Platelet Volume 9.7 fL Sodium Level 139 mmol/L Potassium Level 3.6 mmol/L Chloride Level 110 mmol/L Carbon Dioxide Level 21 mmol/L Anion Gap 8.0 mmol/L Blood Urea Nitrogen 22 mg/dl Creatinine 1.06 mg/dl Est Creatinine Clear Calc Drug Dose 65.4 ml/min Estimated GFR () 78.1 Estimated GFR (Non- 67.4 BUN/Creatinine Ratio 20.4 Random Glucose 98 mg/dl Lactic Acid Level 1.1 mmol/L Calcium Level 8.3 mg/dl Assessment and Plan Patient is a 77 year old male from [facility] - with a past medical history of schizoaffective disorder, vascular dementia, hx. of CVA, hx. of possible seizures, HTN - presents with altered mental status/agitation and found to have rhabdomyolysis. Urinary Tract Infection Urinary Retention Acute Kidney Injury 07/16 - improving creatinine - for now, hold off on Guy, if retention is an issue, we can reinsert the Guy - continue Cefepime for today, monitor WBC 07/15 - creatinine rising as of 07/15, Guy catheter was removed on 07/14 - UA on 07/14 - dirty, urine culture - E. coli - currently on Cefepime, will await sensitivities - added IVFs, monitor for urine output, if continues to be low, may need Guy, but avoiding it for now - white count up to >40k, will recheck in AM Dyspnea with Exertion - patient with worsening shortness of breath, LING - white count elevation, spiked a fever - will check an CXR - added IVFs - give Mg Acute Rhabdomyolysis - resolved - CPK on admission >10,000 - patient was agitated on admission; as per [facility] nursing, he was crawling on the floor - was given IVFs; CPK trended downwards, now wnl Elevated Troponin - trended downwards - likely secondary to rhabdo - appreciate cardiology input - continue aspirin, could restart statin on discharge as rhabdo has resolved Delirium in the setting of Schizoaffective Disorder Hx. of Vascular Dementia and Hx. of prior CVA - Hx. of schizoaffective disorder, dementia - patient was at baseline prior to fluphenazine dose decrease (in May 2017) - now more paranoid - appreciate mental health input, fluphenazine increased, injection due on 07/15 - PO fluphenazine at night - IM Haldol as needed for agitation, Ativan as needed as well - once off of one-to-one - can likely d/c back to [facility] - continue aspirin HTN - amlodipine up to 10mg daily - lisinopril 20mg daily, monitor - if BP continues to be elevated, will increase to 40mg daily Leukocytosis - improving - likely secondary to rhabdo Dysarthria - outpatient ENT/dental input DVT ppx - SCDs FULL CODE
[2017-07-16] MEDS: MIRTAZAPINE TAB 15 MG TAB PO SCH (20:22)
[2017-07-16] MEDS: FLUPHENAZINE HCL 2.5 MG TAB PO SCH (20:23)
[2017-07-16 23:51] VITALS: BP 158/82; PULSE 101; TEMP 37.1; O2SAT 97
[2017-07-17 07:09] VITALS: BP 172/84; PULSE 100; TEMP 36.5; O2SAT 95
[2017-07-17 07:15] LABS: BASO % 0.3 %; BASO ABS # 0.06 K/uL (0-0.2); EOS % 1.7 %; HEMATOCRIT 35.7 % (42-52); HEMOGLOBIN 12.4 g/dL (14.0-18.0); IG# 0.07 K/uL (0.00-0.02); LYMPH % 7.8 %; LYMPH ABS # 1.36 K/uL (1.2-3.4); MEAN CELL VOLUME 86.4 fL (80-100); MEAN CORPUSCULAR HGB CONC 34.7 g/dl (32-36); MEAN PLATELET VOLUME 9.4 fL (7.4-10.4); MONO % 8.4 %; MONO ABS # 1.46 K/uL (0.11-0.59); NEUT % 81.4 %; NEUT ABS # 14.15 K/uL (1.4-6.5); PLATELET COUNT 288 K/uL (130-400); RED CELL DISTRIBUTION WIDTH CV 13.9 % (11.5-14.5); RED CELL DISTRIBUTION WIDTH SD 44.2 fL (36.4-46.3)
[2017-07-17 07:32] LABS: ALBUMIN 2.3 gm/dl (3.4-5.0); CALCIUM 8.5 mg/dl (8.5-10.1); CREATININE 0.79 mg/dl (0.60-1.40); POTASSIUM 3.4 mmol/L (3.5-5.1)
[2017-07-17 07:35] LABS: TOTAL PROTEIN 6.4 gm/dl (6.4-8.2)
[2017-07-17 08:00] VITALS: O2SAT 95
[2017-07-17] MEDS: CEFEPIME IV 2,000 MG in SYRINGE 7.5 ML IV SCH (08:02)
[2017-07-17] MEDS: SODIUM CHLORIDE 0.9% 1000ML 1,000 ML IV SCH ×2 (08:02→17:27)
[2017-07-17] MEDS: SIMETHICONE 80 MG CHEW PO SCH ×4 (08:08→21:03)
[2017-07-17] MEDS: PYRIDOXINE HCL 50 MG TAB PO SCH (08:08)
[2017-07-17] MEDS: LISINOPRIL 20 MG TAB PO SCH (08:08)
[2017-07-17] MEDS: ASPIRIN 81 MG ECTAB PO SCH (08:09)
[2017-07-17] MEDS: AMLODIPINE BESYLATE 5 MG TAB PO SCH (08:09)
[2017-07-17] MEDS: MEMANTINE 10 MG TAB PO SCH ×2 (08:09→21:03)
[2017-07-17] MEDS: MULTIVITAMIN TAB PO SCH (08:09)
[2017-07-17] MEDS: ASCORBIC ACID 500 MG TAB PO SCH (08:09)
[2017-07-17] MEDS: CYANOCOBALAMIN 500 MCG TAB (VIT B-12) PO SCH (08:10)
[2017-07-17] MEDS ORDERED: POTASSIUM CHLR 10 MEQ / WTR 10 MEQ in PREMIXED WATER 100 ML IV STA (11:14)
[2017-07-17 14:24] VITALS: BP 130/77; PULSE 84; TEMP 37; O2SAT 94
[2017-07-17 16:00] VITALS: O2SAT 95
[2017-07-17] MEDS: LORAZEPAM 0.5 MG TAB PO PRN (16:24)
--- NOTE | 2017-07-17 16:34 | Progress Note ---
Subjective Date of Service: Jul 17, 2017. Subjective Pt evaluation today including: conversation w/ patient, physical exam, lab review, review of studies, review of inpatient medication list Saw/examined the patient in room 454 He's doing okay, still requiring a one-to-one because he was pulling on lines He is not eating well the past few days; states he does not have his dentures and can't eat Problem List Medical Problems: (1) Dysphagia Status: Acute (2) Dysphasia Status: Acute (3) Generalized weakness Status: Acute (4) Neck muscle spasm Status: Acute Medications Current Inpatient Medications Medications (Trade) Dose Ordered Sig/Mickie Route Start Time Stop Time Status Last Admin Dose Admin Acetaminophen (Tylenol Tab) 650 mg Q4H PRN PO 07/07/17 13:45 08/06/17 13:44 07/16/17 13:47 650 MG Ascorbic Acid (Vitamin C Tab) 500 mg QAM PO 07/08/17 09:00 08/07/17 08:59 07/17/17 08:09 500 MG Aspirin (Ecotrin Tab) 81 mg DAILY PO 07/08/17 09:00 08/07/17 08:59 07/17/17 08:09 81 MG Cyanocobalamin (Vitamin B-12 Tab) 125 mcg QAM PO 07/08/17 09:00 08/07/17 08:59 07/17/17 08:10 125 MCG Loperamide HCl (Imodium Cap) 2 mg Q4 PRN PO 07/07/17 14:30 08/06/17 14:29 Magnesium Hydroxide (Milk Of Magnesia Susp) 30 ml DAILY PRN PO 07/07/17 14:30 08/06/17 14:29 Multivitamins (Multivitamin Tab) 1 tab QAM PO 07/08/17 09:00 08/07/17 08:59 07/17/17 08:09 1 TAB Pyridoxine HCl (Vitamin B-6 Tab) 50 mg QAM PO 07/08/17 09:00 08/07/17 08:59 07/17/17 08:08 50 MG Simethicone (Mylicon Chew Tab) 80 mg QID PO 07/07/17 17:00 08/06/17 16:59 07/17/17 16:21 80 MG Polyethylene (Miralax Powder Packet) 17 gm Q2D PO 07/08/17 09:00 08/07/17 08:59 07/16/17 08:11 17 GM Miscellaneous (Iv Fluids Completed) 1 ea PRN PRN N/A 07/07/17 15:15 07/07/18 15:14 07/11/17 12:44 1 EA Lorazepam (Ativan Tab) 0.5 mg TID PRN PO 07/08/17 09:45 08/07/17 09:44 07/17/17 16:24 0.5 MG Memantine (Namenda Tab) 10 mg BID PO 07/08/17 21:00 08/07/17 20:59 07/17/17 08:09 10 MG Mirtazapine (Remeron Tab) 30 mg HS PO 07/08/17 21:00 08/07/17 20:59 07/16/17 20:22 30 MG Lisinopril (Zestril Tab) 20 mg QAM PO 07/09/17 09:00 08/08/17 08:59 07/17/17 08:08 20 MG Fluphenazine HCl (Prolixin Tab) 10 mg HS PO 07/08/17 21:00 08/07/17 20:59 07/16/17 20:23 10 MG Fluphenazine HCl (Prolixin Tab) 2.5 mg Q6 PRN PO 07/08/17 15:00 08/07/17 14:59 07/16/17 08:33 2.5 MG Amlodipine Besylate (Norvasc Tab) 10 mg QAM PO 07/10/17 08:00 08/08/17 08:59 07/17/17 08:09 10 MG Lorazepam 0.5 mg/ Syringe 1 ml @ 0.5 mls/min Q6H PRN IV 07/10/17 15:45 08/09/17 15:44 07/12/17 14:09 0.5 MLS/MIN Sodium Chloride 1,000 ml @ 80 mls/hr [id number] IV 07/15/17 09:15 08/14/17 09:14 07/17/17 08:02 150 MLS/HR Cefepime HCl 2000 mg/Syringe 20 ml @ 5 mls/min Q24H IV 07/16/17 09:00 07/26/17 08:59 07/17/17 08:02 5 MLS/MIN Objective Vital Signs Date Time Temp Pulse Resp B/P (MAP) Pulse Ox O2 Delivery O2 Flow Rate FiO2 07/17/17 14:24 37.0 84 20 130/77 (94) 94 07/17/17 08:00 95 Room Air 07/17/17 07:09 36.5 100 20 172/84 (113) 95 Room Air 07/16/17 23:59 Room Air 07/16/17 23:51 37.1 101 20 158/82 (107) 97 Room Air Physical Exam General Appearance: + pertinent finding (+dementia) Respiratory/Chest: lungs clear, normal breath sounds, no respiratory distress, no accessory muscle use Cardiovascular: no edema, no murmur, + tachycardia Extremities: normal inspection, no pedal edema Neurologic/Psychiatric: no motor/sensory deficits, alert Laboratory Results Last 24 Hours Test 07/17/17 06:56 White Blood Count 17.40 K/uL Red Blood Count 4.13 M/uL Hemoglobin 12.4 g/dL Hematocrit 35.7 % Mean Corpuscular Volume 86.4 fL Mean Corpuscular Hemoglobin 30.0 pg Mean Corpuscular Hemoglobin Concent 34.7 g/dl Platelet Count 288 K/uL Mean Platelet Volume 9.4 fL Neutrophils (%) (Auto) 81.4 % Lymphocytes (%) (Auto) 7.8 % Monocytes (%) (Auto) 8.4 % Eosinophils (%) (Auto) 1.7 % Basophils (%) (Auto) 0.3 % Neutrophils # (Auto) 14.15 K/uL Lymphocytes # (Auto) 1.36 K/uL Monocytes # (Auto) 1.46 K/uL Eosinophils # (Auto) 0.30 K/uL Basophils # (Auto) 0.06 K/uL RDW Standard Deviation 44.2 fL RDW Coefficient of Variation 13.9 % Immature Granulocyte % (Auto) 0.4 % Immature Granulocyte # (Auto) 0.07 K/uL Sodium Level 140 mmol/L Potassium Level 3.4 mmol/L Chloride Level 110 mmol/L Carbon Dioxide Level 24 mmol/L Anion Gap 6.0 mmol/L Blood Urea Nitrogen 12 mg/dl Creatinine 0.79 mg/dl Est Creatinine Clear Calc Drug Dose 87.8 ml/min Estimated GFR () 100.4 Estimated GFR (Non- 86.6 BUN/Creatinine Ratio 14.9 Random Glucose 102 mg/dl Calcium Level 8.5 mg/dl Total Bilirubin 0.6 mg/dl Aspartate Amino Transf (AST/SGOT) 21 U/L Alanine Aminotransferase (ALT/SGPT) 26 U/L Alkaline Phosphatase 69 U/L Total Protein 6.4 gm/dl Albumin 2.3 gm/dl Globulin 4.1 gm/dl Albumin/Globulin Ratio 0.6 Assessment and Plan Patient is a 77 year old male from [facility] - with a past medical history of schizoaffective disorder, vascular dementia, hx. of CVA, hx. of possible seizures, HTN - presents with altered mental status/agitation and found to have rhabdomyolysis. Urinary Tract Infection Urinary Retention Acute Kidney Injury 07/17 - creatinine improving - decrease IVF rate - WBC improving, continue abx. - de-escalate in 1-2 days 07/16 - improving creatinine - for now, hold off on Guy, if retention is an issue, we can reinsert the Guy - continue Cefepime for today, monitor WBC 07/15 - creatinine rising as of 07/15, Guy catheter was removed on 07/14 - UA on 07/14 - dirty, urine culture - E. coli - currently on Cefepime, will await sensitivities - added IVFs, monitor for urine output, if continues to be low, may need Guy, but avoiding it for now - white count up to >40k, will recheck in AM Dyspnea with Exertion - patient with worsening shortness of breath, LING - white count elevation, spiked a fever - will check an CXR - added IVFs - give Mg Acute Rhabdomyolysis - resolved - CPK on admission >10,000 - patient was agitated on admission; as per [facility] nursing, he was crawling on the floor - was given IVFs; CPK trended downwards, now wnl Elevated Troponin - trended downwards - likely secondary to rhabdo - appreciate cardiology input - continue aspirin, could restart statin on discharge as rhabdo has resolved Delirium in the setting of Schizoaffective Disorder Hx. of Vascular Dementia and Hx. of prior CVA - Hx. of schizoaffective disorder, dementia - patient was at baseline prior to fluphenazine dose decrease (in May 2017) - now more paranoid - appreciate mental health input, fluphenazine increased, injection due on 07/15 - PO fluphenazine at night - IM Haldol as needed for agitation, Ativan as needed as well - once off of one-to-one - can likely d/c back to [facility] - continue aspirin HTN - amlodipine up to 10mg daily - lisinopril 20mg daily, monitor - if BP continues to be elevated, will increase to 40mg daily Leukocytosis - improving - likely secondary to rhabdo Dysarthria - outpatient ENT/dental input DVT ppx - SCDs FULL CODE
[2017-07-17] MEDS: FLUPHENAZINE HCL 2.5 MG TAB PO SCH (21:04)
[2017-07-17] MEDS: MIRTAZAPINE TAB 15 MG TAB PO SCH (21:04)
[2017-07-17 22:56] VITALS: BP 180/93; PULSE 87; TEMP 36.9; O2SAT 94
[2017-07-17 23:53] VITALS: BP 154/81; PULSE 82; O2SAT 97
[2017-07-18] MEDS: SODIUM CHLORIDE 0.9% 1000ML 1,000 ML IV SCH ×2 (03:46→16:11)
[2017-07-18 06:48] LABS: HEMATOCRIT 35.1 % (42-52); HEMOGLOBIN 12.3 g/dL (14.0-18.0); MEAN CELL VOLUME 85.8 fL (80-100); MEAN CORPUSCULAR HEMOGLOBIN 30.1 pg (25-34); PLATELET COUNT 285 K/uL (130-400); RED CELL DISTRIBUTION WIDTH CV 14.1 % (11.5-14.5); WHITE BLOOD COUNT 13.22 K/uL (4.8-10.8)
[2017-07-18 06:49] VITALS: BP 170/93; PULSE 86; TEMP 36.8; O2SAT 95
[2017-07-18 07:23] LABS: CALCIUM 8.1 mg/dl (8.5-10.1); CREATININE 0.8 mg/dl (0.60-1.40); POTASSIUM 3.5 mmol/L (3.5-5.1)
[2017-07-18 08:00] VITALS: O2SAT 95
[2017-07-18] MEDS: MULTIVITAMIN TAB PO SCH (08:58)
[2017-07-18] MEDS: ASPIRIN 81 MG ECTAB PO SCH (08:58)
[2017-07-18] MEDS: SIMETHICONE 80 MG CHEW PO SCH ×4 (08:59→20:01)
[2017-07-18] MEDS: MEMANTINE 10 MG TAB PO SCH ×2 (09:00→20:02)
[2017-07-18] MEDS: AMLODIPINE BESYLATE 5 MG TAB PO SCH (09:01)
[2017-07-18] MEDS: CYANOCOBALAMIN 500 MCG TAB (VIT B-12) PO SCH (09:02)
[2017-07-18] MEDS: ASCORBIC ACID 500 MG TAB PO SCH (09:02)
[2017-07-18] MEDS: PYRIDOXINE HCL 50 MG TAB PO SCH (09:02)
[2017-07-18] MEDS: LISINOPRIL 20 MG TAB PO SCH (09:05)
[2017-07-18] MEDS: POLYETHYLENE (MIRALAX) 17 GM PACK PO SCH (09:05)
[2017-07-18] MEDS: CEFEPIME IV 2,000 MG in SYRINGE 7.5 ML IV SCH (09:09)
[2017-07-18 14:23] VITALS: BP 117/69; PULSE 88; TEMP 36.9; O2SAT 96
[2017-07-18 16:00] VITALS: O2SAT 95
--- NOTE | 2017-07-18 17:10 | Progress Note ---
Subjective Date of Service: Jul 18, 2017. Subjective Pt evaluation today including: conversation w/ patient, physical exam, lab review, review of studies, review of inpatient medication list Saw/examined the patient in room 454 he is demented, not eating well, no change in condition today Problem List Medical Problems: (1) Dysphagia Status: Acute (2) Dysphasia Status: Acute (3) Generalized weakness Status: Acute (4) Neck muscle spasm Status: Acute Medications Current Inpatient Medications Medications (Trade) Dose Ordered Sig/Mickie Route Start Time Stop Time Status Last Admin Dose Admin Acetaminophen (Tylenol Tab) 650 mg Q4H PRN PO 07/07/17 13:45 08/06/17 13:44 07/16/17 13:47 650 MG Ascorbic Acid (Vitamin C Tab) 500 mg QAM PO 07/08/17 09:00 08/07/17 08:59 07/18/17 09:02 500 MG Aspirin (Ecotrin Tab) 81 mg DAILY PO 07/08/17 09:00 08/07/17 08:59 07/18/17 08:58 81 MG Cyanocobalamin (Vitamin B-12 Tab) 125 mcg QAM PO 07/08/17 09:00 08/07/17 08:59 07/18/17 09:02 125 MCG Loperamide HCl (Imodium Cap) 2 mg Q4 PRN PO 07/07/17 14:30 08/06/17 14:29 Magnesium Hydroxide (Milk Of Magnesia Susp) 30 ml DAILY PRN PO 07/07/17 14:30 08/06/17 14:29 Multivitamins (Multivitamin Tab) 1 tab QAM PO 07/08/17 09:00 08/07/17 08:59 07/18/17 08:58 1 TAB Pyridoxine HCl (Vitamin B-6 Tab) 50 mg QAM PO 07/08/17 09:00 08/07/17 08:59 07/18/17 09:02 50 MG Simethicone (Mylicon Chew Tab) 80 mg QID PO 07/07/17 17:00 08/06/17 16:59 07/18/17 16:11 80 MG Polyethylene (Miralax Powder Packet) 17 gm Q2D PO 07/08/17 09:00 08/07/17 08:59 07/18/17 09:05 17 GM Miscellaneous (Iv Fluids Completed) 1 ea PRN PRN N/A 07/07/17 15:15 07/07/18 15:14 07/11/17 12:44 1 EA Lorazepam (Ativan Tab) 0.5 mg TID PRN PO 07/08/17 09:45 08/07/17 09:44 07/17/17 16:24 0.5 MG Memantine (Namenda Tab) 10 mg BID PO 07/08/17 21:00 08/07/17 20:59 07/18/17 09:00 10 MG Mirtazapine (Remeron Tab) 30 mg HS PO 07/08/17 21:00 08/07/17 20:59 07/17/17 21:04 30 MG Lisinopril (Zestril Tab) 20 mg QAM PO 07/09/17 09:00 08/08/17 08:59 07/18/17 09:05 20 MG Fluphenazine HCl (Prolixin Tab) 10 mg HS PO 07/08/17 21:00 08/07/17 20:59 07/17/17 21:04 10 MG Fluphenazine HCl (Prolixin Tab) 2.5 mg Q6 PRN PO 07/08/17 15:00 08/07/17 14:59 07/16/17 08:33 2.5 MG Amlodipine Besylate (Norvasc Tab) 10 mg QAM PO 07/10/17 08:00 08/08/17 08:59 07/18/17 09:01 10 MG Lorazepam 0.5 mg/ Syringe 1 ml @ 0.5 mls/min Q6H PRN IV 07/10/17 15:45 08/09/17 15:44 07/12/17 14:09 0.5 MLS/MIN Sodium Chloride 1,000 ml @ 80 mls/hr [id number] IV 07/15/17 09:15 08/14/17 09:14 07/18/17 16:11 80 MLS/HR Cefepime HCl 2000 mg/Syringe 20 ml @ 5 mls/min Q24H IV 07/16/17 09:00 07/26/17 08:59 07/18/17 09:09 5 MLS/MIN Objective Vital Signs Date Time Temp Pulse Resp B/P (MAP) Pulse Ox O2 Delivery O2 Flow Rate FiO2 07/18/17 16:00 95 Room Air 07/18/17 14:23 36.9 88 22 117/69 (85) 96 Room Air 07/18/17 08:00 95 Room Air 07/18/17 06:49 36.8 86 18 170/93 (118) 95 Room Air 07/18/17 00:30 Room Air 07/17/17 23:53 82 154/81 (105) 97 Room Air 07/17/17 22:56 36.9 87 20 180/93 (122) 94 Room Air Physical Exam General Appearance: no apparent distress Respiratory/Chest: no respiratory distress, no accessory muscle use Cardiovascular: regular rate, rhythm Neurologic/Psychiatric: + disoriented, + pertinent finding (pleasantly demented ) Laboratory Results Last 24 Hours Test 07/18/17 06:37 White Blood Count 13.22 K/uL Red Blood Count 4.09 M/uL Hemoglobin 12.3 g/dL Hematocrit 35.1 % Mean Corpuscular Volume 85.8 fL Mean Corpuscular Hemoglobin 30.1 pg Mean Corpuscular Hemoglobin Concent 35.0 g/dl RDW Standard Deviation 44.0 fL RDW Coefficient of Variation 14.1 % Platelet Count 285 K/uL Mean Platelet Volume 9.0 fL Sodium Level 142 mmol/L Potassium Level 3.5 mmol/L Chloride Level 110 mmol/L Carbon Dioxide Level 25 mmol/L Anion Gap 7.0 mmol/L Blood Urea Nitrogen 11 mg/dl Creatinine 0.80 mg/dl Est Creatinine Clear Calc Drug Dose 86.7 ml/min Estimated GFR () 99.9 Estimated GFR (Non- 86.2 BUN/Creatinine Ratio 14.2 Random Glucose 89 mg/dl Calcium Level 8.1 mg/dl Assessment and Plan Patient is a 77 year old male from [facility] - with a past medical history of schizoaffective disorder, vascular dementia, hx. of CVA, hx. of possible seizures, HTN - presents with altered mental status/agitation and found to have rhabdomyolysis. Urinary Tract Infection Urinary Retention Acute Kidney Injury 07/18 - Guy catheter being placed - white count slowly improving - kidney function back to baseline - plan for SNF discharge when able 07/17 - creatinine improving - decrease IVF rate - WBC improving, continue abx. - de-escalate in 1-2 days 07/16 - improving creatinine - for now, hold off on Guy, if retention is an issue, we can reinsert the Guy - continue Cefepime for today, monitor WBC 07/15 - creatinine rising as of 07/15, Guy catheter was removed on 07/14 - UA on 07/14 - dirty, urine culture - E. coli - currently on Cefepime, will await sensitivities - added IVFs, monitor for urine output, if continues to be low, may need Guy, but avoiding it for now - white count up to >40k, will recheck in AM Dyspnea with Exertion - patient with worsening shortness of breath, LING - white count elevation, spiked a fever - will check an CXR - added IVFs - give Mg Acute Rhabdomyolysis - resolved - CPK on admission >10,000 - patient was agitated on admission; as per [facility] nursing, he was crawling on the floor - was given IVFs; CPK trended downwards, now wnl Elevated Troponin - trended downwards - likely secondary to rhabdo - appreciate cardiology input - continue aspirin, could restart statin on discharge as rhabdo has resolved Delirium in the setting of Schizoaffective Disorder Hx. of Vascular Dementia and Hx. of prior CVA - Hx. of schizoaffective disorder, dementia - patient was at baseline prior to fluphenazine dose decrease (in May 2017) - now more paranoid - appreciate mental health input, fluphenazine increased, injection due on 07/15 - PO fluphenazine at night - IM Haldol as needed for agitation, Ativan as needed as well - once off of one-to-one - can likely d/c back to [facility] - continue aspirin HTN - amlodipine up to 10mg daily - lisinopril 20mg daily, monitor - if BP continues to be elevated, will increase to 40mg daily Leukocytosis - improving - likely secondary to rhabdo Dysarthria - outpatient ENT/dental input DVT ppx - SCDs FULL CODE
[2017-07-18] MEDS: FLUPHENAZINE HCL 2.5 MG TAB PO SCH (21:40)
[2017-07-18] MEDS: MIRTAZAPINE TAB 15 MG TAB PO SCH (21:40)
[2017-07-18 22:45] VITALS: BP 144/84; PULSE 98; TEMP 37.3; O2SAT 95
[2017-07-19] MEDS: SODIUM CHLORIDE 0.9% 1000ML 1,000 ML IV SCH ×2 (04:19→16:59)
[2017-07-19 06:46] LABS: HEMATOCRIT 35.3 % (42-52); HEMOGLOBIN 12.5 g/dL (14.0-18.0); MEAN CELL VOLUME 86.1 fL (80-100); MEAN CORPUSCULAR HEMOGLOBIN 30.5 pg (25-34); MEAN CORPUSCULAR HGB CONC 35.4 g/dl (32-36); MEAN PLATELET VOLUME 9.7 fL (7.4-10.4); PLATELET COUNT 329 K/uL (130-400); WHITE BLOOD COUNT 13.67 K/uL (4.8-10.8)
[2017-07-19 06:51] VITALS: BP 170/84; PULSE 90; TEMP 36.4; O2SAT 95
[2017-07-19 07:16] LABS: CALCIUM 8.5 mg/dl (8.5-10.1); CREATININE 0.79 mg/dl (0.60-1.40); POTASSIUM 3.4 mmol/L (3.5-5.1)
[2017-07-19] MEDS: SIMETHICONE 80 MG CHEW PO SCH ×4 (07:35→19:38)
[2017-07-19] MEDS: ASPIRIN 81 MG ECTAB PO SCH (07:35)
[2017-07-19] MEDS: MULTIVITAMIN TAB PO SCH (07:35)
[2017-07-19] MEDS: AMLODIPINE BESYLATE 5 MG TAB PO SCH (07:36)
[2017-07-19] MEDS: LORAZEPAM 0.5 MG TAB PO PRN ×2 (07:36→22:00)
[2017-07-19] MEDS: LISINOPRIL 20 MG TAB PO SCH (07:37)
[2017-07-19] MEDS: CYANOCOBALAMIN 500 MCG TAB (VIT B-12) PO SCH (07:37)
[2017-07-19] MEDS: PYRIDOXINE HCL 50 MG TAB PO SCH (07:37)
[2017-07-19] MEDS: ASCORBIC ACID 500 MG TAB PO SCH (07:38)
[2017-07-19] MEDS: MEMANTINE 10 MG TAB PO SCH ×2 (07:39→19:38)
[2017-07-19 08:00] VITALS: O2SAT 95
[2017-07-19] MEDS: CEFEPIME IV 2,000 MG in SYRINGE 7.5 ML IV SCH (08:49)
--- NOTE | 2017-07-19 13:12 | Progress Note ---
Subjective Date of Service: Jul 19, 2017. Subjective Pt evaluation today including: conversation w/ patient, physical exam, lab review, review of studies, review of inpatient medication list Saw/examined the patient in room 454 He is pleasantly demented currently seated in a chair, eating food Wants his Guy catheter secured to his leg Problem List Medical Problems: (1) Dysphagia Status: Acute (2) Dysphasia Status: Acute (3) Generalized weakness Status: Acute (4) Neck muscle spasm Status: Acute Medications Current Inpatient Medications Medications (Trade) Dose Ordered Sig/Mickie Route Start Time Stop Time Status Last Admin Dose Admin Acetaminophen (Tylenol Tab) 650 mg Q4H PRN PO 07/07/17 13:45 08/06/17 13:44 07/16/17 13:47 650 MG Ascorbic Acid (Vitamin C Tab) 500 mg QAM PO 07/08/17 09:00 08/07/17 08:59 07/19/17 07:38 500 MG Aspirin (Ecotrin Tab) 81 mg DAILY PO 07/08/17 09:00 08/07/17 08:59 07/19/17 07:35 81 MG Cyanocobalamin (Vitamin B-12 Tab) 125 mcg QAM PO 07/08/17 09:00 08/07/17 08:59 07/19/17 07:37 125 MCG Loperamide HCl (Imodium Cap) 2 mg Q4 PRN PO 07/07/17 14:30 08/06/17 14:29 Magnesium Hydroxide (Milk Of Magnesia Susp) 30 ml DAILY PRN PO 07/07/17 14:30 08/06/17 14:29 Multivitamins (Multivitamin Tab) 1 tab QAM PO 07/08/17 09:00 08/07/17 08:59 07/19/17 07:35 1 TAB Pyridoxine HCl (Vitamin B-6 Tab) 50 mg QAM PO 07/08/17 09:00 08/07/17 08:59 07/19/17 07:37 50 MG Simethicone (Mylicon Chew Tab) 80 mg QID PO 07/07/17 17:00 08/06/17 16:59 07/19/17 12:26 80 MG Polyethylene (Miralax Powder Packet) 17 gm Q2D PO 07/08/17 09:00 08/07/17 08:59 07/18/17 09:05 17 GM Miscellaneous (Iv Fluids Completed) 1 ea PRN PRN N/A 07/07/17 15:15 07/07/18 15:14 07/11/17 12:44 1 EA Lorazepam (Ativan Tab) 0.5 mg TID PRN PO 07/08/17 09:45 08/07/17 09:44 07/19/17 07:36 0.5 MG Memantine (Namenda Tab) 10 mg BID PO 07/08/17 21:00 08/07/17 20:59 07/19/17 07:39 10 MG Mirtazapine (Remeron Tab) 30 mg HS PO 07/08/17 21:00 08/07/17 20:59 07/18/17 21:40 30 MG Lisinopril (Zestril Tab) 20 mg QAM PO 07/09/17 09:00 08/08/17 08:59 07/19/17 07:37 20 MG Fluphenazine HCl (Prolixin Tab) 10 mg HS PO 07/08/17 21:00 08/07/17 20:59 07/18/17 21:40 10 MG Fluphenazine HCl (Prolixin Tab) 2.5 mg Q6 PRN PO 07/08/17 15:00 08/07/17 14:59 07/16/17 08:33 2.5 MG Amlodipine Besylate (Norvasc Tab) 10 mg QAM PO 07/10/17 08:00 08/08/17 08:59 07/19/17 07:36 10 MG Lorazepam 0.5 mg/ Syringe 1 ml @ 0.5 mls/min Q6H PRN IV 07/10/17 15:45 08/09/17 15:44 07/12/17 14:09 0.5 MLS/MIN Sodium Chloride 1,000 ml @ 80 mls/hr [id number] IV 07/15/17 09:15 08/14/17 09:14 07/19/17 04:19 80 MLS/HR Cefepime HCl 2000 mg/Syringe 20 ml @ 5 mls/min Q24H IV 07/16/17 09:00 07/26/17 08:59 07/19/17 08:49 5 MLS/MIN Objective Vital Signs Date Time Temp Pulse Resp B/P (MAP) Pulse Ox O2 Delivery O2 Flow Rate FiO2 07/19/17 08:00 95 Room Air 07/19/17 06:51 36.4 90 20 170/84 (112) 95 Room Air 07/19/17 00:15 Room Air 07/18/17 22:45 37.3 98 20 144/84 (104) 95 Room Air 07/18/17 16:00 95 Room Air 07/18/17 14:23 36.9 88 22 117/69 (85) 96 Room Air Physical Exam General Appearance: no apparent distress, + pertinent finding (+pleasantly demented) Respiratory/Chest: no respiratory distress, no accessory muscle use Extremities: normal inspection, no pedal edema Neurologic/Psychiatric: alert, + pertinent finding (+pleasantly demented, no acute distress) Laboratory Results Last 24 Hours Test 07/19/17 06:20 White Blood Count 13.67 K/uL Red Blood Count 4.10 M/uL Hemoglobin 12.5 g/dL Hematocrit 35.3 % Mean Corpuscular Volume 86.1 fL Mean Corpuscular Hemoglobin 30.5 pg Mean Corpuscular Hemoglobin Concent 35.4 g/dl RDW Standard Deviation 44.0 fL RDW Coefficient of Variation 14.0 % Platelet Count 329 K/uL Mean Platelet Volume 9.7 fL Sodium Level 140 mmol/L Potassium Level 3.4 mmol/L Chloride Level 109 mmol/L Carbon Dioxide Level 24 mmol/L Anion Gap 7.0 mmol/L Blood Urea Nitrogen 12 mg/dl Creatinine 0.79 mg/dl Est Creatinine Clear Calc Drug Dose 87.8 ml/min Estimated GFR () 100.4 Estimated GFR (Non- 86.6 BUN/Creatinine Ratio 15.4 Random Glucose 105 mg/dl Calcium Level 8.5 mg/dl Assessment and Plan Patient is a 77 year old male from [facility] - with a past medical history of schizoaffective disorder, vascular dementia, hx. of CVA, hx. of possible seizures, HTN - presents with altered mental status/agitation and found to have rhabdomyolysis. Urinary Tract Infection Urinary Retention Acute Kidney Injury 07/19 - changed Cefepime to Rocephin - continue IV fluids 07/18 - Guy catheter being placed - white count slowly improving - kidney function back to baseline - plan for SNF discharge when able 07/17 - creatinine improving - decrease IVF rate - WBC improving, continue abx. - de-escalate in 1-2 days 07/16 - improving creatinine - for now, hold off on Guy, if retention is an issue, we can reinsert the Guy - continue Cefepime for today, monitor WBC 07/15 - creatinine rising as of 07/15, Guy catheter was removed on 07/14 - UA on 07/14 - dirty, urine culture - E. coli - currently on Cefepime, will await sensitivities - added IVFs, monitor for urine output, if continues to be low, may need Guy, but avoiding it for now - white count up to >40k, will recheck in AM Dyspnea with Exertion - patient with worsening shortness of breath, LING - white count elevation, spiked a fever - will check an CXR - added IVFs - give Mg Acute Rhabdomyolysis - resolved - CPK on admission >10,000 - patient was agitated on admission; as per [facility] nursing, he was crawling on the floor - was given IVFs; CPK trended downwards, now wnl Elevated Troponin - trended downwards - likely secondary to rhabdo - appreciate cardiology input - continue aspirin, could restart statin on discharge as rhabdo has resolved Delirium in the setting of Schizoaffective Disorder Hx. of Vascular Dementia and Hx. of prior CVA - Hx. of schizoaffective disorder, dementia - patient was at baseline prior to fluphenazine dose decrease (in May 2017) - now more paranoid - appreciate mental health input, fluphenazine increased, injection due on 07/15 - PO fluphenazine at night - IM Haldol as needed for agitation, Ativan as needed as well - once off of one-to-one - can likely d/c back to [facility] - continue aspirin HTN 07/19 - amlodipine up to 10mg daily - Lisinopril increased to 40mg daily - amlodipine up to 10mg daily - lisinopril 20mg daily, monitor - if BP continues to be elevated, will increase to 40mg daily Leukocytosis - improving - likely secondary to rhabdo Dysarthria - outpatient ENT/dental input DVT ppx - SCDs FULL CODE
[2017-07-19 14:49] VITALS: BP 121/70; PULSE 77; TEMP 36.8; O2SAT 95
[2017-07-19 20:15] VITALS: O2SAT 95
[2017-07-19] MEDS: MIRTAZAPINE TAB 15 MG TAB PO SCH (21:19)
[2017-07-19] MEDS: FLUPHENAZINE HCL 2.5 MG TAB PO SCH (21:20)
[2017-07-20 00:02] VITALS: BP 122/63; PULSE 66; TEMP 37; O2SAT 98
[2017-07-20 00:27] VITALS: O2SAT 95
[2017-07-20] MEDS: SODIUM CHLORIDE 0.9% 1000ML 1,000 ML IV SCH (04:56)
[2017-07-20 06:48] LABS: HEMATOCRIT 32.1 % (42-52); MEAN CELL VOLUME 86.8 fL (80-100); MEAN CORPUSCULAR HEMOGLOBIN 29.7 pg (25-34); MEAN CORPUSCULAR HGB CONC 34.3 g/dl (32-36); MEAN PLATELET VOLUME 9.3 fL (7.4-10.4); PLATELET COUNT 315 K/uL (130-400); RED CELL DISTRIBUTION WIDTH CV 14.3 % (11.5-14.5); RED CELL DISTRIBUTION WIDTH SD 45.1 fL (36.4-46.3); WHITE BLOOD COUNT 12.45 K/uL (4.8-10.8)
[2017-07-20 07:01] VITALS: BP 126/72; PULSE 76; TEMP 36.9; O2SAT 94
[2017-07-20 07:19] LABS: CALCIUM 8.3 mg/dl (8.5-10.1); CREATININE 0.8 mg/dl (0.60-1.40); POTASSIUM 3.5 mmol/L (3.5-5.1)
[2017-07-20] MEDS: POLYETHYLENE (MIRALAX) 17 GM PACK PO SCH (07:23)
[2017-07-20] MEDS: ASCORBIC ACID 500 MG TAB PO SCH (07:23)
[2017-07-20] MEDS: CYANOCOBALAMIN 500 MCG TAB (VIT B-12) PO SCH (07:23)
[2017-07-20] MEDS: LISINOPRIL 40 MG TAB PO SCH (07:23)
[2017-07-20] MEDS: MEMANTINE 10 MG TAB PO SCH ×2 (07:24→20:10)
[2017-07-20] MEDS: SIMETHICONE 80 MG CHEW PO SCH ×4 (07:24→20:10)
[2017-07-20] MEDS: AMLODIPINE BESYLATE 5 MG TAB PO SCH (07:24)
[2017-07-20] MEDS: MULTIVITAMIN TAB PO SCH (07:24)
[2017-07-20] MEDS: ASPIRIN 81 MG ECTAB PO SCH (07:24)
[2017-07-20] MEDS: PYRIDOXINE HCL 50 MG TAB PO SCH (07:24)
[2017-07-20] MEDS ORDERED: CEFTRIAXONE SOD INJ 1 GM in DEXTROSE 5% ADD-VANTAGE 50ML 50 ML IV SCH (09:00)
[2017-07-20 14:59] VITALS: BP 114/62; PULSE 46; TEMP 36.7; O2SAT 96
--- NOTE | 2017-07-20 19:27 | Progress Note ---
Progress Note Date of Service Jul 20, 2017. Progress Note Subjective: Patient oriented to self and time but not to place. Denies acute distress Physical exam General: no acute distress Neck: no JVD Face: left lip with mass of reported hemangioma Lungs: CTABL Heart rate: regular Abdomen: soft, nontender, + bowel sounds Assessment and Plan: Patient is a 77 year old male from [facility] - with a past medical history of schizoaffective disorder, vascular dementia, hx. of CVA, hx. of possible seizures, HTN - presents with altered mental status/agitation and found to have rhabdomyolysis. Acute Rhabdomyolysis - resolved Leukocytosis and Elevated Troponin likely secondary to rhabdomyolyses - resolved Patient denies further dyspnea, no recent fevers Urinary Tract Infection / Urinary Retention / Acute Kidney Injury -acute kidney injury resolved -Patient completed antibiotics, antibiotics stopped on 07/20/17, stafford removed on 07/20/17 for trial of void Blood pressure - hypertension controlled with lisinopril and amlodipine Mental status (had Hx. of Vascular Dementia and Hx. of prior CVA and Delirium in the setting of Schizoaffective Disorder on this admission) -is not on any 1 to 1 observation at this time Dysarthria and facial hemangioma - outpatient ENT/dental if needed DVT ppx: SCDs
[2017-07-20] MEDS: MIRTAZAPINE TAB 15 MG TAB PO SCH (21:27)
[2017-07-20] MEDS: FLUPHENAZINE HCL 2.5 MG TAB PO SCH (21:27)
[2017-07-20] MEDS: LORAZEPAM 0.5 MG TAB PO PRN (21:27)
[2017-07-21 00:13] VITALS: BP 168/80; PULSE 80; TEMP 36.7; O2SAT 96
[2017-07-21 07:12] VITALS: BP 152/82; PULSE 80; TEMP 37; O2SAT 96
[2017-07-21] MEDS: SIMETHICONE 80 MG CHEW PO SCH ×2 (07:28→11:31)
[2017-07-21] MEDS: PYRIDOXINE HCL 50 MG TAB PO SCH (07:28)
[2017-07-21] MEDS: CYANOCOBALAMIN 500 MCG TAB (VIT B-12) PO SCH (07:28)
[2017-07-21] MEDS: MULTIVITAMIN TAB PO SCH (07:28)
[2017-07-21] MEDS: AMLODIPINE BESYLATE 5 MG TAB PO SCH (07:28)
[2017-07-21] MEDS: ASPIRIN 81 MG ECTAB PO SCH (07:29)
[2017-07-21] MEDS: MEMANTINE 10 MG TAB PO SCH (07:29)
[2017-07-21] MEDS: LISINOPRIL 40 MG TAB PO SCH (07:29)
[2017-07-21] MEDS: ASCORBIC ACID 500 MG TAB PO SCH (07:29)
[2017-07-21 10:22] VITALS: BP 152/82; PULSE 80; TEMP 37; O2SAT 96
[2017-07-21] MEDS ORDERED: LSN40 PO (12:58)
[2017-07-21] MEDS ORDERED: FLUP2.5T PO ×2 (12:58)
[2017-07-21] MEDS ORDERED: NRV5 PO (13:07)
--- NOTE | 2017-07-21 13:13 | Progress Note ---
Internal Med Progress Note Date of Service: Jul 21, 2017. Provider Documentation: Subjective: Denies pain or shortness of breath Physical exam General: no acute distress Neck: no JVD Face: left lip with mass of reported hemangioma Lungs: CTABL Heart rate: regular Abdomen: soft, nontender, + bowel sounds ASSESSMENT & PLAN: Hospital Course and Plan: Patient is a 77 year old male from [facility] [place] - with a past medical history of schizoaffective disorder, vascular dementia, hx. of CVA, hx. of possible seizures, HTN - presents with altered mental status/agitation and found to have rhabdomyolysis. Acute Rhabdomyolysis (CPK on admission >10,000) - resolved after IV fluids on this admission Leukocytosis and Elevated Troponin likely secondary to rhabdomyolyses - resolved Echocardiogram on 07/08/17 Compared to previous study of 07/04/17.: overall LV systolic function has improved. Normal LV chamber size with mild concentric LVH, sigmoid appearing septum. Normal LV systolic function, EF 60-65%. No segmental left ventricular wall motion abnormalities are noted. Procedure Details A two-dimensional transthoracic echocardiogram was performed. Limited views were obtained. Left Ventricle No segmental left ventricular wall motion abnormalities are noted Patient denies further dyspnea, no recent fevers Urinary Tract Infection / Urinary Retention / Acute Kidney Injury -acute kidney injury resolved -Patient completed antibiotics, antibiotics stopped on 07/20/17, stafford removed on 07/20/17 for trial of void and was successful with urination Blood pressure - hypertension controlled with lisinopril and amlodipine Mental status (had Hx. of Vascular Dementia and Hx. of prior CVA and Delirium in the setting of Schizoaffective Disorder on this admission) -is not on any 1 to 1 observation at this time -patient can be discharged to [facility] Dysarthria and facial hemangioma -outpatient ENT/dental services if needed Discharge Instructions Patient is to be discharged to [facility] for physical rehabilitation and will need routine outpatient follow up for management of blood pressure and management of schizoaffective disorder Vital Signs: Date Time Temp Pulse Resp B/P (MAP) Pulse Ox O2 Delivery O2 Flow Rate FiO2 07/21/17 10:22 37.0 80 20 96 Room Air 07/21/17 08:00 Room Air 07/21/17 07:12 37.0 80 20 152/82 (105) 96 07/21/17 00:13 36.7 80 20 168/80 (109) 96 Room Air 07/21/17 00:00 Room Air 07/20/17 20:00 Room Air 07/20/17 16:00 Room Air 07/20/17 14:59 36.7 46 18 114/62 (28) 96
--- NOTE | 2017-07-21 13:21 | Discharge Instructions ---
Discharge Instructions Date of Service Jul 21, 2017. Admission Reason for Admission: Rhabdomyolysis Discharge Discharge Diagnosis / Problem: Rhabdomyolysis, Leukocytosis, UTI, COLT, HTN, Altered mental Status Discharge Goals Goal(s): Improve function, Increase independence Activity Recommendations Activity Limitations: per Instructions/Follow-up section Shower/Bathe: no limitations . Instructions / Follow-Up Instructions / Follow-Up Hospital Course and Plan: Patient is a 77 year old male from [facility] - with a past medical history of schizoaffective disorder, vascular dementia, hx. of CVA, hx. of possible seizures, HTN - presents with altered mental status/agitation and found to have rhabdomyolysis. Acute Rhabdomyolysis (CPK on admission >10,000) - resolved after IV fluids on this admission Leukocytosis and Elevated Troponin likely secondary to rhabdomyolyses - resolved Echocardiogram on 07/08/17 Compared to previous study of 07/04/17.: overall LV systolic function has improved. Normal LV chamber size with mild concentric LVH, sigmoid appearing septum. Normal LV systolic function, EF 60-65%. No segmental left ventricular wall motion abnormalities are noted. Procedure Details A two-dimensional transthoracic echocardiogram was performed. Limited views were obtained. Left Ventricle No segmental left ventricular wall motion abnormalities are noted Patient denies further dyspnea, no recent fevers Urinary Tract Infection / Urinary Retention / Acute Kidney Injury -acute kidney injury resolved -Patient completed antibiotics, antibiotics stopped on 07/20/17, stafford removed on 07/20/17 for trial of void and was successful with urination Blood pressure - hypertension controlled with lisinopril and amlodipine Mental status (had Hx. of Vascular Dementia and Hx. of prior CVA and Delirium in the setting of Schizoaffective Disorder on this admission) -is not on any 1 to 1 observation at this time -patient can be discharged to [facility] Dysarthria and facial hemangioma -outpatient ENT/dental services if needed Discharge Instructions Patient is to be discharged to [facility] for physical rehabilitation and will need routine outpatient follow up for management of blood pressure and management of schizoaffective disorder Current Hospital Diet Patient's current hospital diet: AHA Diet (Heart Healthy) Discharge Diet Recommended Diet: AHA Diet (Heart Healthy) Pending Studies Studies pending at discharge: no Laboratory Results 07/20/17 06:33 07/20/17 06:33 Test 07/07/17 11:28 07/07/17 15:35 07/07/17 23:37 07/08/17 10:36 Direct Bilirubin 0.2 mg/dl (0-0.2) Thyroid Stimulating Hormone (TSH) 1.250 uIu/ml (0.300-4.500) Ethyl Alcohol mg/dL < 3.0 mg/dl (0-3) Urine Opiates Screen NEG (NEG) Urine Methadone, Qualitative NEG (NEG) Urine Barbiturates NEG (NEG) Urine Phencyclidine (PCP) Level NEG (NEG) Ur Amphetamine/Methamphetamine NEG (NEG) MDMA (Ecstasy) Screen NEG (NEG) Urine Benzodiazepines Screen NEG (NEG) Urine Cocaine Metabolite NEG (NEG) Urine Marijuana (THC) NEG (NEG) Creatine Kinase MB 22.3 ng/ml (0.5-3.6) Creatine Kinase MB Ratio 0.3 (0-3.0) Troponin I 0.052 ng/ml (0-0.045) Test 07/14/17 00:00 07/15/17 07:23 07/16/17 07:45 07/17/17 06:56 Urine Color DK YELLOW Urine Appearance CLOUDY (CLEAR) Urine pH 5.5 (4.5-7.5) Urine Specific [place] 1.024 (1.000-1.030) Urine Protein 1+ (NEG) Urine Glucose (UA) NEG (NEG) Urine Ketones TRACE (NEG) Urine Occult Blood 3+ (NEG) Urine Nitrite POS (NEG) Urine Bilirubin NEG (NEG) Urine Urobilinogen POS (NEG) Urine Leukocyte Esterase LARGE (NEG) Urine WBC (Auto) >30 /hpf (0-5) Urine RBC (Auto) >30 /hpf (0-4) Urine Hyaline Casts (Auto) 1-5 /lpf (0-5) Urine Epithelial Cells (Auto) 10-20 /lpf (0-5) Urine Bacteria (Auto) 3+ (NEG) Magnesium Level 1.8 mg/dl (1.8-2.4) Total Creatine Kinase 63 U/L (39-308) Lactic Acid Level 1.1 mmol/L (0.4-2.0) Immature Granulocyte % (Auto) 0.4 % White Blood Count 17.40 K/uL (4.8-10.8) Red Blood Count 4.13 M/uL (4.7-6.1) Hemoglobin 12.4 g/dL (14.0-18.0) Hematocrit 35.7 % (42-52) Mean Corpuscular Volume 86.4 fL (80-100) Mean Corpuscular Hemoglobin 30.0 pg (25-34) Mean Corpuscular Hemoglobin Concent 34.7 g/dl (32-36) Platelet Count 288 K/uL (130-400) Mean Platelet Volume 9.4 fL (7.4-10.4) Neutrophils (%) (Auto) 81.4 % Lymphocytes (%) (Auto) 7.8 % Monocytes (%) (Auto) 8.4 % Eosinophils (%) (Auto) 1.7 % Basophils (%) (Auto) 0.3 % Neutrophils # (Auto) 14.15 K/uL (1.4-6.5) Lymphocytes # (Auto) 1.36 K/uL (1.2-3.4) Monocytes # (Auto) 1.46 K/uL (0.11-0.59) Eosinophils # (Auto) 0.30 K/uL (0-0.5) Basophils # (Auto) 0.06 K/uL (0-0.2) Immature Granulocyte # (Auto) 0.07 K/uL (0.00-0.02) Total Bilirubin 0.6 mg/dl (0.2-1) Aspartate Amino Transf (AST/SGOT) 21 U/L (15-37) Alanine Aminotransferase (ALT/SGPT) 26 U/L (12-78) Alkaline Phosphatase 69 U/L (45-117) Total Protein 6.4 gm/dl (6.4-8.2) Albumin 2.3 gm/dl (3.4-5.0) Globulin 4.1 gm/dl (2.5-4.0) Albumin/Globulin Ratio 0.6 (0.9-2) Test 07/20/17 06:33 Red Blood Count 3.70 M/uL (4.7-6.1) Mean Corpuscular Volume 86.8 fL (80-100) Mean Corpuscular Hemoglobin 29.7 pg (25-34) Mean Corpuscular Hemoglobin Concent 34.3 g/dl (32-36) RDW Standard Deviation 45.1 fL (36.4-46.3) RDW Coefficient of Variation 14.3 % (11.5-14.5) Mean Platelet Volume 9.3 fL (7.4-10.4) Anion Gap 2.0 mmol/L (3-11) Est Creatinine Clear Calc Drug Dose 86.7 ml/min Estimated GFR () 99.9 Estimated GFR (Non- 86.2 BUN/Creatinine Ratio 14.7 (10-20) Calcium Level 8.3 mg/dl (8.5-10.1) Date/Time Source Procedure Growth Status 07/07/17 14:42 Blood Blood Culture - Final NO GROWTH Complete 07/14/17 00:00 Urine , Clean Catch Urine Culture - Final Escherichia Coli Complete Lipid Panel Test 07/04/17 05:59 Range/Units Triglycerides Level 65 0-150 mg/dl Cholesterol Level 117 0-200 mg/dl HDL Cholesterol 41 mg/dl Cholesterol/HDL Ratio 2.9 LDL Cholesterol, Calculated 63 mg/dl Medical Emergencies . Who to Call and When: Medical Emergencies: If at any time you feel your situation is an emergency, please call 911 immediately. . Non-Emergent Contact Non-Emergency issues call your: Primary Care Provider Call Non-Emergent contact if: you have any medication questions . . "Provider Documentation" section prepared by Rolan Jones. .
--- NOTE | 2017-07-21 13:22 | Discharge Summary ---
Discharge Summary Date of Service Jul 21, 2017. Discharge Summary Admission Date: Jul 09, 2017 at 14:33 Discharge Date: Jul 21, 2017 Discharge Disposition: Rehab ([facility]) Principal Diagnosis: Acute Rhabdomyolysis, Leukocytosis and Elevated Troponin likely secondary to rhabdomyolyses, Urinary Tract Infection / Urinary Retention / Acute Kidney Injury, Hypertension, Altered mental Status (Hx. of Vascular Dementia and Hx. of prior CVA and Delirium in the setting of Schizoaffective Disorder) Medication Reconciliation New Medications: Amlodipine Besylate (Amlodipine Besylate) 5 Mg Tab 10 MG PO QAM for 30 Days, #30 TAB Fluphenazine Hcl (Prolixin) 2.5 Mg Tab 10 MG PO HS for 5 Days, #5 TAB Fluphenazine Hcl (Prolixin) 2.5 Mg Tab 2.5 MG PO Q6 PRN for psychosis/agitation for 5 Days, #20 TAB Lisinopril (Lisinopril) 40 Mg Tab 40 MG PO QAM for 30 Days, #30 TAB Continued Medications: Acetaminophen (Tylenol) 325 Mg Tab 650 MG PO Q4 PRN for Pain, TAB Artificial Tear Solution (Artificial Tears) 1 Valarie Valarie 1 DROP OPB BID Ascorbic Acid (Ascorbic Acid) 500 Mg Tab 500 MG PO QAM, TAB Aspirin (Ecotrin Low Strength) 81 Mg Tab 81 MG PO DAILY, #30 TAB No prescription necessary. Atorvastatin (Lipitor) 20 Mg Tab 20 MG PO DAILY, #30 TAB 5 Refills Biotin (Biotin) 1,000 Mcg Tab 1000 MCG PO TID Cyanocobalamin (Vitamin B12 500MCG) 500 Mcg Tab 125 MCG PO QAM, TAB Loperamide Hcl (Anti-Diarrheal) 2 Mg Cap 2 MG PO Q4 PRN for Diarrhea Lorazepam (Ativan) 0.5 Mg Tab 0.5 MG PO TID PRN for Anxiety/Agitation, TAB Magnesium Hydroxide (Milk Of Magnesia) 30 Ml Susp 30 ML PO DAILY PRN for Constipation, ML Memantine (Namenda) 10 Mg Tab 10 MG PO BID, 0 Refills Mirtazapine (Remeron) 30 Mg Tab 30 MG PO HS, TAB Multiple Vitamins W/ Minerals (Preservision Areds 2) 1 Cap Cap 1 CAP PO BID Multivitamin (Multivitamin) Tab 1 TAB PO QAM, TAB Polyethylene Glycol 3350 (Miralax) 1 Pow Pow 17 GM PO Q2D, #255 GM Pyridoxine (Vitamin B6) 100 Mg Tab 50 MG PO QAM, 0 Refills Simethicone (Gas Relief) 80 Mg Chw 80 MG PO QID Discontinued Medications: Benztropine Mesylate (Cogentin) 1 Mg Tab 1.5 MG PO BID PRN for Muscle Spasms Fluphenazine Decanoate (Fluphenazine Decanoate) 25 Mg/Ml Inj 25 MG IM UD EVERY 14 DAYS STARTING 2017 Lisinopril (Lisinopril) 20 Mg Tab 20 MG PO QAM Admission Information HPI (per Admitting provider): Patient is a 77-year-old [facility] resident with a past medical history of cerebrovascular disease, hypertension, possible h/o seizures, dementia and schizoaffective disorder who presents due to AMS and agitation yesterday. Patient was recently admitted from July 03-July 06 for evaluation of dysarthria , without any acute findings on neuro imaging. Per staff at [facility], patient became scattered and agitated yesterday, stating that he was hearing Nixon Titus speak with him. Was found on a bench at 5 PM last evening stating that he is waiting for Nixon Titus to pick him up. Was refusing to eat, drink or take scheduled medications. Also locked himself in his room and refused to allow staff in. This morning, patient was lying on the floor in his room with his belongings very disheveled. Staff then gave 0.5 mg Ativan and 10 mg of fluphenazine in. Patient gets a 25 mg fluphenazine injection every other week, with his most recent injection last week. Follows with the Rashid at [facility], where he was hospitalized once over a year ago. No known seizure history per [facility] and is not on antiepileptics. Patient is currently A&Ox3 and states that he feels "much better" since previous admission. Does not remember any unusual events from yesterday including fall, trauma or seizure. Is not a reliable historian. Denies fever, chills, headache, lightheadedness, visual changes, chest pain, SOB, abdominal pain, nausea, vomiting, dysuria, hematuria, muscle pain or weakness. Denies auditory or visual hallucinations. In the ED, patient found to have a leukocytosis of 20, CK > 10,000 and mild troponin elevation of 0.141. 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 Non-tender) Neck: supple, thyroid normal, trachea midline Respiratory/Chest: chest non-tender, lungs clear, no respiratory distress, no accessory muscle use, + decreased breath sounds Cardiovascular: regular rate, rhythm, no murmur, normal peripheral pulses Abdomen/GI: non tender, soft, no organomegaly Back: normal inspection Extremities/Musculoskelatal: no calf tenderness, normal capillary refill, no pedal edema, normal range of motion, + pertinent finding (Bilateral knee erythema with warmth. No edema. Mild TTP) Neurologic/Psych: no motor/sensory deficits, alert, normal mood/affect, oriented x 3, + pertinent finding (Dysarthric (chronic)) Skin: normal color, warm/dry Hospital Course Hospital Course and Plan: Patient is a 77 year old male from [facility] - with a past medical history of schizoaffective disorder, vascular dementia, hx. of CVA, hx. of possible seizures, HTN - presents with altered mental status/agitation and found to have rhabdomyolysis. Acute Rhabdomyolysis (CPK on admission >10,000) - resolved after IV fluids on this admission Leukocytosis and Elevated Troponin likely secondary to rhabdomyolyses - resolved Echocardiogram on 07/08/17 Compared to previous study of 07/04/17.: overall LV systolic function has improved. Normal LV chamber size with mild concentric LVH, sigmoid appearing septum. Normal LV systolic function, EF 60-65%. No segmental left ventricular wall motion abnormalities are noted. Procedure Details A two-dimensional transthoracic echocardiogram was performed. Limited views were obtained. Left Ventricle No segmental left ventricular wall motion abnormalities are noted Patient denies further dyspnea, no recent fevers Urinary Tract Infection / Urinary Retention / Acute Kidney Injury -acute kidney injury resolved -Patient completed antibiotics, antibiotics stopped on 07/20/17, stafford removed on 07/20/17 for trial of void and was successful with urination Blood pressure - hypertension controlled with lisinopril and amlodipine Mental status (had Hx. of Vascular Dementia and Hx. of prior CVA and Delirium in the setting of Schizoaffective Disorder on this admission) -is not on any 1 to 1 observation at this time -patient can be discharged to [facility] Dysarthria and facial hemangioma -outpatient ENT/dental services if needed Discharge Instructions Patient is to be discharged to [facility] for physical rehabilitation and will need routine outpatient follow up for management of blood pressure and management of schizoaffective disorder Total time spent on discharge = 40 minutes This includes examination of the patient, discharge planning, medication reconciliation, and communication with other providers. Discharge Instructions see above
== END 2017-07-21 14:13 | DRG 558 ==
LOC: EDBD 10:35 → C.EDA 10:36 → C.2T 13:34 → ENRESERV 14:21 → C.2T 07-08 17:46 → OBSVTOIN 07-09 14:33 → EDBEDREQ 07-09 15:09 → ENRESERV 07-09 15:19 → C.MS4W 07-09 15:50
PROVIDERS: ADMIT Internal Medicine; ATTEND Hospitalist
DX: M62.82 Rhabdomyolysis (principal); R44.0 Auditory hallucinations; N17.9 Acute kidney failure, unspecified; N39.0 Urinary tract infection, site not specified; R41.0 Disorientation, unspecified; R33.9 Retention of urine, unspecified; F25.9 Schizoaffective disorder, unspecified; F03.90 Unspecified dementia, unspecified severity, without behavioral disturbance, psychotic disturbance, mood disturbance, and anxiety; I10 Essential (primary) hypertension; E86.0 Dehydration; D18.09 Hemangioma of other sites; G40.909 Epilepsy, unspecified, not intractable, without status epilepticus; Z79.82 Long term (current) use of aspirin; Z79.899 Other long term (current) drug therapy; Z86.73 Personal history of transient ischemic attack (TIA), and cerebral infarction without residual deficits; Z87.891 Personal history of nicotine dependence; Z88.7 Allergy status to serum and vaccine; Z88.8 Allergy status to other drugs, medicaments and biological substances

== ENCOUNTER → 2017-08-10 | Outpatient (CLI) | payer OTHER, MEDICARE ==
[~2017-08-10] MED LIST changes: -BENZ-89 PO; +FLUP2.5T PO; -LSN20 PO; +LSN40 PO; +NRV5 PO; -PRLDMDV IM
== END | disposition home or self-care (01) ==
LOC: C.LABWYN 10:12
PROVIDERS: ATTEND Psychiatry & Neurology Psychiatry
DX: F25.1 Schizoaffective disorder, depressive type (principal)

== ENCOUNTER → 2017-08-24 | Outpatient (CLI) | payer OTHER, MEDICARE | END | disposition home or self-care (01) | LOC: C.LABWYN 18:05 | PROVIDERS: ATTEND Psychiatry & Neurology Psychiatry | DX: F25.1 Schizoaffective disorder, depressive type (principal) ==

== ENCOUNTER → 2017-10-21 | Outpatient (CLI) | payer OTHER, MEDICARE ==
[~2017-10-21] MED LIST changes: +LISI40TA3 PO; -LSN40 PO
[2017-10-21 13:32] LABS: BASO % 0.4 %; BASO ABS # 0.05 K/uL (0-0.2); EOS % 3.1 %; EOS ABS # 0.38 K/uL (0-0.5); HEMATOCRIT 36.8 % (42-52); HEMOGLOBIN 12.1 g/dL (14.0-18.0); IG# 0.07 K/uL (0.00-0.02); LYMPH % 17.1 %; LYMPH ABS # 2.08 K/uL (1.2-3.4); MEAN CELL VOLUME 87.8 fL (80-100); MEAN CORPUSCULAR HEMOGLOBIN 28.9 pg (25-34); MEAN CORPUSCULAR HGB CONC 32.9 g/dl (32-36); MEAN PLATELET VOLUME 9.2 fL (7.4-10.4); MONO % 8.4 %; MONO ABS # 1.02 K/uL (0.11-0.59); NEUT % 70.4 %; NEUT ABS # 8.53 K/uL (1.4-6.5); PLATELET COUNT 344 K/uL (130-400); RED CELL DISTRIBUTION WIDTH CV 15.1 % (11.5-14.5); RED CELL DISTRIBUTION WIDTH SD 48.8 fL (36.4-46.3); WHITE BLOOD COUNT 12.13 K/uL (4.8-10.8)
[2017-10-21 13:55] LABS: ALBUMIN 3.2 gm/dl (3.4-5.0); ALKALINE PHOSPHATASE 62 U/L (45-117); ALT/SGPT 12 U/L (12-78); AST/SGOT 12 U/L (15-37); BLOOD UREA NITROGEN 9 mg/dl (7-18); CALCIUM 9.1 mg/dl (8.5-10.1); CARBON DIOXIDE 26 mmol/L (21-32); CHOLESTEROL 101 mg/dl (0-200); CREATININE 0.93 mg/dl (0.60-1.40); GLUCOSE 83 mg/dl (70-99); LDL CHOLESTEROL CALCULATED 48 mg/dl; SODIUM 137 mmol/L (136-145); TOTAL PROTEIN 6.6 gm/dl (6.4-8.2)
== END | disposition home or self-care (01) ==
LOC: C.LABWYN 11:28
PROVIDERS: ATTEND Psychiatry & Neurology Psychiatry
DX: F25.1 Schizoaffective disorder, depressive type (principal)

== ENCOUNTER → 2017-10-26 | Outpatient (CLI) | payer OTHER, MEDICARE ==
[2017-10-26 13:18] LABS: HEMATOCRIT 36.7 % (42-52); HEMOGLOBIN 12.2 g/dL (14.0-18.0); MEAN CELL VOLUME 88.4 fL (80-100); MEAN CORPUSCULAR HEMOGLOBIN 29.4 pg (25-34); MEAN CORPUSCULAR HGB CONC 33.2 g/dl (32-36); MEAN PLATELET VOLUME 9.5 fL (7.4-10.4); PLATELET COUNT 295 K/uL (130-400); RED CELL DISTRIBUTION WIDTH CV 15.5 % (11.5-14.5); RED CELL DISTRIBUTION WIDTH SD 50.1 fL (36.4-46.3); WHITE BLOOD COUNT 15.43 K/uL (4.8-10.8)
[2017-10-26 14:27] LABS: BLOOD UREA NITROGEN 27 mg/dl (7-18); CALCIUM 8.3 mg/dl (8.5-10.1); CARBON DIOXIDE 25 mmol/L (21-32); CREATININE 2.03 mg/dl (0.60-1.40); GLUCOSE 92 mg/dl (70-99); POTASSIUM 4.4 mmol/L (3.5-5.1); SODIUM 134 mmol/L (136-145)
== END | disposition home or self-care (01) ==
LOC: C.LABWYN 15:31
PROVIDERS: ATTEND Internal Medicine
DX: F41.9 Anxiety disorder, unspecified (principal); F32.9 Major depressive disorder, single episode, unspecified; F03.90 Unspecified dementia, unspecified severity, without behavioral disturbance, psychotic disturbance, mood disturbance, and anxiety; I10 Essential (primary) hypertension; F25.9 Schizoaffective disorder, unspecified

== ENCOUNTER → 2017-10-27 | Outpatient (CLI) | payer OTHER, MEDICARE | END | disposition home or self-care (01) | LOC: C.LABWYN 09:50 | PROVIDERS: ATTEND Internal Medicine | DX: R19.7 Diarrhea, unspecified (principal) ==

== ENCOUNTER → 2017-11-23 | Outpatient (CLI) | payer OTHER, MEDICARE ==
[2017-11-23 12:53] LABS: BASO % 0.6 %; BASO ABS # 0.06 K/uL (0-0.2); EOS % 6.6 %; EOS ABS # 0.68 K/uL (0-0.5); HEMOGLOBIN 12.1 g/dL (14.0-18.0); IG# 0.03 K/uL (0.00-0.02); LYMPH % 23.2 %; LYMPH ABS # 2.39 K/uL (1.2-3.4); MEAN CELL VOLUME 89.2 fL (80-100); MEAN CORPUSCULAR HEMOGLOBIN 29.2 pg (25-34); MEAN CORPUSCULAR HGB CONC 32.7 g/dl (32-36); MONO % 10.4 %; MONO ABS # 1.07 K/uL (0.11-0.59); NEUT % 58.9 %; NEUT ABS # 6.07 K/uL (1.4-6.5); PLATELET COUNT 382 K/uL (130-400); RED CELL DISTRIBUTION WIDTH CV 15.3 % (11.5-14.5); RED CELL DISTRIBUTION WIDTH SD 49.7 fL (36.4-46.3)
[2017-11-23 13:15] LABS: BLOOD UREA NITROGEN 13 mg/dl (7-18); CALCIUM 9.2 mg/dl (8.5-10.1); CARBON DIOXIDE 27 mmol/L (21-32); CREATININE 0.99 mg/dl (0.60-1.40); GLUCOSE 90 mg/dl (70-99); POTASSIUM 3.7 mmol/L (3.5-5.1); SODIUM 139 mmol/L (136-145)
== END | disposition home or self-care (01) ==
LOC: C.LABWYN 16:12
PROVIDERS: ATTEND Psychiatry & Neurology Psychiatry
DX: F25.1 Schizoaffective disorder, depressive type (principal)

== ENCOUNTER 2018-11-22 09:51 | Inpatient (IN) ==
--- OUTSIDE RECORDS SUMMARY | 2018-11-22 09:55 | External Medical Summary | Continuity of Care Document ---
:1940 Author Name Elena Merida Address Unavailable Unavailable , Care Team Providers Name Role Phone NonMNPG M.D. Unavailable [email or web address], NO Unavailable Unavailable Problems Active medical history not documented Allergies and Adverse Reactions Allergy history not documented Medications Medications not documented Procedures Procedures not documented Immunizations Immunizations not documented Plan of Treatment Planned Observations Planned Goals not documented Results No Known Results Results not documented
[2018-11-22] MEDS ORDERED: SODIUM CHLORIDE 0.9% 500 ML IV SCH (10:15)
--- NOTE | 2018-11-22 10:21 | XRay Report ---
XR chest 1V portable CLINICAL HISTORY: weakness dyspnea COMPARISON STUDY: 07/14/2017 FINDINGS: Small bibasilar parenchymal infiltrative change. Mid and upper lungs are clear. Diaphragms are smooth. IMPRESSION: Small bibasilar parenchymal infiltrates. The above report was generated using voice recognition software. It may contain grammatical, syntax or spelling errors. Electronically signed by: Demetris Sam M.D. 11/22/2018 10:19 AM
[2018-11-22 10:23] LABS: Basophils # (auto) 0.05 K/uL (0-0.2); Basophils % (auto) 0.4 %; Eosinophils # (auto) 0.28 K/uL (0-0.5); Eosinophils % (auto) 2.4 %; Hematocrit (blood only) 34.8 % (42-52); Hemoglobin 11.7 g/dL (14.0-18.0); Immature Granulocytes # (auto) 0.03 K/uL (0.00-0.02); Immature Granulocytes % (auto) 0.3 %; Lymphocytes # (auto) 1.58 K/uL (1.2-3.4); Lymphocytes % (auto) 13.6 %; Mean Corpuscular Hgb Conc 33.6 g/dL (32-36); Mean Corpuscular Volume 86.1 fL (80-100); Mean Platelet Volume 8.6 fL (7.4-10.4); Monocytes # (auto) 0.95 K/uL (0.11-0.59); Monocytes % (auto) 8.2 %; Neutrophils # (auto) 8.69 K/uL (1.4-6.5); Neutrophils % (auto) 75.1 %; Platelet Count 260 K/uL (130-400); RDW Coefficient of Variation 14.8 % (11.5-14.5); RDW Standard Deviation 46.6 fL (36.4-46.3); Red Blood Count 4.04 M/uL (4.7-6.1); White Blood Count 11.58 K/uL (4.8-10.8)
[2018-11-22 10:43] LABS: Alanine Aminotransferase 13 U/L (12-78); Albumin Level 3.4 gm/dl (3.4-5.0); Aspartate Aminotransferase 8 U/L (15-37); BUN Creatinine Ratio 23.1 (10-20); Blood Urea Nitrogen 29 mg/dl (7-18); Carbon Dioxide 27 mmol/L (21-32); Chloride 108 mmol/L (98-107); Creatinine Clr Calc Pharmacy 46.7 ml/min; Est GFR (African American) 62.9; Est GFR (Non-African American) 54.3; Glucose 98 mg/dl (70-99); Magnesium 2.3 mg/dl (1.8-2.4); Potassium 4.4 mmol/L (3.5-5.1); Sodium 140 mmol/L (136-145)
[2018-11-22 10:53] LABS: Appearance Urine Cloudy (Clear); Bacteria Urine Automated 2+ (Negative); Bilirubin Urine Negative (Negative); Blood Urine Negative (Negative); Color Urine Yellow; Epithelial Cell Urine Auto 0-5 /lpf (0-5); Glucose Urine UA Negative (Negative); Ketones Urine Negative (Negative); Leukocyte Esterase Urine 3+ (Negative); Nitrite Urine Negative (Negative); Protein Urine Negative (Negative); RBC Urine Automated 0-4 /hpf (0-4); Specific Gravity Urine 1.015 (1.000-1.030); Urobilinogen Urine Negative (Negative); WBC Urine Automated >30 /hpf (0-5)
[2018-11-22] MEDS ORDERED: PIPERACILLIN/TAZOBACTAM 4.5 GM/120 ML BAG IV ONE (10:53)
[2018-11-22] MEDS ORDERED: PIPERACILL/TAZOBAC CONSULT ACTIVE PRN (10:53)
[2018-11-22 10:54] LABS: Albumin Globulin Ratio 0.9 (0.9-2); Alkaline Phosphatase 86 U/L (45-117); Bilirubin,Total 0.4 mg/dl (0.2-1); Creatine Kinase 30 U/L (39-308); Globulin 3.9 gm/dl (2.5-4.0); Total Protein 7.3 gm/dl (6.4-8.2); Troponin I < 0.015 ng/ml (0-0.045)
--- NOTE | 2018-11-22 10:56 | CT Scan Report ---
CT head/brain wo con CT DOSE: 614.27 mGy.cm HISTORY: Mental status change weakness TECHNIQUE: Multiaxial CT images of the head were performed without the use of intravenous contrast. A dose lowering technique was utilized adhering to the principles of ALARA. Comparison: None. Findings: The paranasal sinuses and mastoid air cells are clear. The calvarium and skull base are int act. The ventricles and sulci are within normal limits. There is no mass, hematoma, midline shift, or acute infarct. Age-related chronic small vessel change and atrophy Impression: No acute intracranial abnormality. Age-related chronic small vessel change and atrophy The above report was generated using voice recognition software. It may contain grammatical, syntax or spelling errors. Electronically signed by: Demetris Sam M.D. 11/22/2018 10:54 AM
--- NOTE | 2018-11-22 11:47 | History & Physical Report ---
Date of Service November 22, 2018 Assessment & Plan (1) Community acquired pneumonia: This is a 78yo M from [facility] in [place] with a PMH of vascular dementia, schizoaffective disorder, HTN, history of CVA and other medical problems listed below who presents with worsening generalized weakness x 1 week and was found to have community-acquired pneumonia and uncomplicated UTI. -Afebrile and hemodynamically stable. No hypoxia or SOB -Mild leukocytosis of 11.58 -CXR with small bibasilar parenchymal infiltrates -Given dose of Zosyn in ED. Will transition to Rocephin and Azithromycin -Follow blood culture -Duonebs PRN (2) UTI (urinary tract infection): Urinalysis with presence of leuk esterase and 2+ bacteria -Cover empirically with Rocephin -Follow urine culture -Bladder scan PRN (3) Acute kidney injury: Cr elevated at 1.26 today (baseline 0.8-0.9) -In setting of dehydration, infection -Gentle fluid resuscitation, hold lisinopril for now -Daily BMP (4) Schizoaffective disorder: Stable but more agitated at facility over the past day, per staff -Due for monthly injection of Prolixin tomorrow -Continue Prolixin Hcl Q6H PRN, Ativan PRN (5) Hypertension: Mildly elevated in setting of missed medication this morning -Given missed dose of amlodipine -Continue lisinopril (6) H/O: CVA (cerebrovascular accident): Continue baby aspirin DVT Ppx: SQ heparin Code status: Full for now. [facility] of A[facility] involved in patient's care. Will call today for further clarification. PCP: Reyes Dispo: Admitted to [facility]. Discharge planning ordered. Patient seen in collaboration with Dr. Leger. Please see addendum. History of Present Illness Chief Complaint: generalized weakness Primary Care Provider: [facility] This is a 78yo M with a PMH of vascular dementia, schizoaffective disorder, HTN, history of CVA and other medical problems listed below who presents with worsening generalized weakness x 1 week. Patient resides at [facility] assisted living in [place]. Has been feeling generally weak over the past week with progressive worsening. Was unable to get out of his chair this morning, which is unusual for him. Normally ambulates with a walker. Also complaining of dull headache, nausea and dry cough. Denies fever, chills, lightheadedness chest pain, shortness of breath, vomiting, abdominal pain, dysuria, hematuria, frequency of urination, diarrhea constipation. Denies poor appetite or fluid intake. Since arrival in ED, patient has been given normal saline 500 ml and Zosyn. No longer with headache or nausea. Afebrile and hemodynamically stable. Mild leukocytosis of 11.58. Urinalysis with presence of leuk esterase and 2+ bacteria. CXR with small bibasilar parenchymal infiltrates. Did not take any medications this morning prior to arrival. Office of aging is involved in patient's care, per discussion with Sita grimm. Allergies Allergy/AdvReac Type Severity Reaction Status Date / Time olanzapine Allergy Mild "IT DOES Verified 11/22/18 11:18 NOT WORK" risperidone Allergy Unknown UNKNOWN Verified 11/22/18 11:18 Tricyclic Antidepressants Allergy Unknown . Uncoded 11/22/18 11:18 Flu Virus Vaccine AdvReac Unknown CAUSES Uncoded 11/22/18 11:18 PAIN AT INJECTION SITE Home Medications Home Medications Medication Instructions Recorded Confirmed Type [place]'s wort 300 mg PO DAILY 11/22/18 11/22/18 History acetaminophen 650 mg PO Q4H PRN 11/22/18 11/22/18 History amlodipine 10 mg PO DAILY 11/22/18 11/22/18 History aspirin 81 mg PO DAILY 11/22/18 11/22/18 History benzocaine-menthol [Cepacol Sore 1 sheila PO Q4H PRN 11/22/18 11/22/18 History Throat (anand-men)] benztropine 1 mg PO HS 11/22/18 11/22/18 History benztropine 2 mg PO QAM 11/22/18 11/22/18 History calcium carbonate [Calcium Antacid] 200 mg PO Q4H PRN 11/22/18 11/22/18 History dextran 70-hypromellose 1 drp OPB BID 11/22/18 11/22/18 History [Artificial Tears (PF)] docusate sodium 100 mg PO BID 11/22/18 11/22/18 History fluphenazine HCl 2.5 mg PO Q6H PRN 11/22/18 11/22/18 History fluphenazine decanoate 25 mg IM MONTHLY 11/22/18 11/22/18 History lisinopril 20 mg PO DAILY 11/22/18 11/22/18 History lorazepam 0.5 mg SUBLINGUAL TID PRN 11/22/18 11/22/18 History memantine 10 mg PO BID 11/22/18 11/22/18 History menthol-zinc oxide [Calmoseptine] 1 applic TOPICAL DAILY 11/22/18 11/22/18 History methyl salicylate-menthol [Bengay 1 applic TOPICAL QID PRN 11/22/18 11/22/18 History Greaseless] mirtazapine 30 mg PO HS 11/22/18 11/22/18 History multivitamin 1 tab PO DAILY 11/22/18 11/22/18 History perphenazine 8 mg PO TID 11/22/18 11/22/18 History polyethylene glycol 3350 17 g PO DAILY@1200 PRN 11/22/18 11/22/18 History simethicone 80 mg PO ACHS PRN 11/22/18 11/22/18 History Past Med/Surg History Medical History H/O: CVA (cerebrovascular accident) (Chronic) Schizoaffective disorder (Chronic) HTN (hypertension) (Chronic) Dementia (Chronic) Surgical History Hx of cataract surgery (Chronic) S/P tonsillectomy (Chronic) Family History Other Hypertension Social History Preferred Language: Lithuanian Communication Ability: Effective Beliefs That Will Affect Care: None Current Living Situation: Personal Care Facility Current Living Situation Comment: [facility] Other Information That Helps Us Care for You: No Feels Safe at Home: Yes Safety Concerns: Feels Safe At This Time Smoking Status: Former smoker Years Smoked: 50 ; Hx Alcohol Use: No (quit 11 years ago ) Hx Substance Use: No Review of Systems Review of Systems: At least ten systems reviewed and negative except as noted in the HPI. Physical Exam Physical Exam: General Appearance: WD/WN, no apparent distress, resting comforably Head: normocephalic, atraumatic Eyes: normal inspection, PERRL, EOMI ENT: hearing grossly normal, pharynx normal (dry mucous membranes), R lip hemangioma Neck: supple, no JVD, no adenopathy Respiratory/Chest: lungs clear to auscultation. No wheezes, rales or rhonci. No respiratory distress or accessory muscle use Cardiovascular: regular rate, rhythm, no murmur, normal peripheral pulses, no BLE edema Abdomen/GI: normal bowel sounds, soft, non-tender to palpation Extremities/Musculoskelatal: normal inspection, no calf tenderness, normal capillary refill, dependent edema Neurologic/Psych: alert, depressed mood/affect, oriented x 3 Skin: normal color, warm/dry Results & Data Vital Signs (Past 12 Hours) Vital Signs Temp Pulse Resp BP Pulse Ox 11/22/18 11:27 75 16 144/80 H 98 11/22/18 10:30 95 H 22 160/86 H 11/22/18 10:13 78 22 154/80 H 98 11/22/18 09:59 98 11/22/18 09:58 36.8 C 88 18 123/61 98 11/22/18 09:55 80 17 123/61 97 Laboratory Results Short CBC 11/22/18 Range/Units 10:13 WBC 11.58 H (4.8-10.8) K/uL Hgb 11.7 L (14.0-18.0) g/dL Hct 34.8 L (42-52) % Plt Count 260 (130-400) K/uL BMP 11/22/18 10:13 Sodium 140 Potassium 4.4 Chloride 108 H Carbon Dioxide 27 BUN 29 H Creatinine 1.26 Glucose 98 Calcium 9.0 Cardiac Enzymes 11/22/18 Range/Units 10:13 Total Creatine Kinase 30 L (39-308) U/L Troponin I < 0.015 (0-0.045) ng/ml Liver Function 11/22/18 Range/Units 10:13 Total Bilirubin 0.4 (0.2-1) mg/dl AST 8 L (15-37) U/L ALT 13 (12-78) U/L Alkaline Phosphatase 86 (45-117) U/L Albumin 3.4 (3.4-5.0) gm/dl Urine 11/22/18 Range/Units 10:42 Urine Color Yellow Urine Appearance Cloudy A (Clear) Urine pH 6.0 (4.5-7.5) Ur Specific [place] 1.015 (1.000-1.030) Urine Protein Negative (Negative) Urine Glucose (UA) Negative (Negative) Diagnostic Findings CT head: Impression: No acute intracranial abnormality. Age-related chronic small vessel change and atrophy CXR: IMPRESSION: Small bibasilar parenchymal infiltrates. ECG Rhythm: normal sinus Findings: + left axis deviation Change: no significant change Supervising Physician Co-Signing Physician Notes I have seen and examined the patient and have discussed the case with the provider above. I agree with the assessment and plan as stated with the following exceptions. 78 yo schizophrenic patient presents with weakness and fatigue for the past two weeks. He is able to articulate well that he has not had much in the way of cough or respiratory symptoms and has not been around anyone sick that he is aware. He is not sexually active and states that he has burning with urination. Workup reveals a UTI and pneumonia. On exam he is not septic. He is hemodynamically stable and afebrile and is tolerating PO. He is in no acute distress. He is alert and oriented, heart exam is normal without murmur heard, lungs are clear to auscultation. There is some suprapubic tenderness on exam, skin is warm and dry. Assessment: (1) weakness 2/2 infection, (2) UTI, (3) Pneumonia, (4) schizoaffective disorder, (5) COLT, (6) HTN. Agree with plan to continue with Rocephin/azithro which will cover both infections pending culture results and clinical improvement. PT/OT assessments. DO Arsen
[2018-11-22] MEDS ORDERED: POLYETHYLENE (MIRALAX) 17 GM PACK PO PRN (13:37)
[2018-11-22] MEDS ORDERED: ONDANSETRON INJ 2 MG/ML 2 ML VIAL IV PRN (13:37)
[2018-11-22] MEDS ORDERED: ACETAMINOPHEN 325 MG TAB PO PRN (13:37)
[2018-11-22] MEDS ORDERED: SODIUM CHLORIDE 0.9% 1000ML 1,000 ML IV SCH (14:30)
[2018-11-22] MEDS ORDERED: SIMETHICONE 80 MG CHEW PO PRN (15:01)
[2018-11-22] MEDS ORDERED: LORazepam 0.5 MG TAB SL PRN (15:01)
[2018-11-22] MEDS ORDERED: CALCIUM CARBONATE 500 MG CHEWABLE TAB PO PRN (15:01)
[2018-11-22] MEDS: cefTRIAXone SODIUM 2,000 MG in DEXTROSE 5% 50 ML IV SCH (15:47)
[2018-11-22 16:15] LABS: INR 1.1 (0.9-1.1); Prothrombin Time 11.3 Seconds (9.0-12.0)
--- NOTE | 2018-11-22 16:22 | Emergency Department Note ---
Entered by Meme Miller acting as a scribe for History of Present Illness General Chief complaint: Illness Time Seen by Provider: 11/22/18 10:02 Source: patient Mode of arrival: EMS Limitations: no limitations History of Present Illness Onset (ago): day(s) 1 Radiation: non-radiation Pain Consistency: + constant Maximum Pain Intensity: 4 Current Pain Intensity: 4 Relieved By: + none Exacerbated By: + none Associated symptoms: + cough and + other (-diarrhea); no fever/chills and no nausea/vomiting Treatments prior to arrival: none The patient is a 78 year old male who presents to the ED with complaints of weakness. He was brought to the ED via EMS. He reports he slept in his chair last night and was unable to get up on his own this morning, so he called EMS. He also complains of weakness "all over", rating his discomfort as a 4/10 in severity. He denies any recent fevers. He denies any vomiting or diarrhea. He did not eat breakfast this morning and admits he has not been drinking enough fluids. He denies any recent medication changes. He does admit to a recent cough. Home Medications Home Medications Medication Instructions Recorded Confirmed Type Bing's wort 300 mg PO DAILY 11/22/18 11/22/18 History acetaminophen 650 mg PO Q4H PRN 11/22/18 11/22/18 History amlodipine 10 mg PO DAILY 11/22/18 11/22/18 History aspirin 81 mg PO DAILY 11/22/18 11/22/18 History benzocaine-menthol [Cepacol Sore 1 sheila PO Q4H PRN 11/22/18 11/22/18 History Throat (anand-men)] benztropine 1 mg PO HS 11/22/18 11/22/18 History benztropine 2 mg PO QAM 11/22/18 11/22/18 History calcium carbonate [Calcium Antacid] 200 mg PO Q4H PRN 11/22/18 11/22/18 History dextran 70-hypromellose 1 drp OPB BID 11/22/18 11/22/18 History [Artificial Tears (PF)] docusate sodium 100 mg PO BID 11/22/18 11/22/18 History fluphenazine HCl 2.5 mg PO Q6H PRN 11/22/18 11/22/18 History fluphenazine decanoate 25 mg IM MONTHLY 11/22/18 11/22/18 History lisinopril 20 mg PO DAILY 11/22/18 11/22/18 History lorazepam 0.5 mg SUBLINGUAL TID PRN 11/22/18 11/22/18 History memantine 10 mg PO BID 11/22/18 11/22/18 History menthol-zinc oxide [Calmoseptine] 1 applic TOPICAL DAILY 11/22/18 11/22/18 History methyl salicylate-menthol [Bengay 1 applic TOPICAL QID PRN 11/22/18 11/22/18 History Greaseless] mirtazapine 30 mg PO HS 11/22/18 11/22/18 History multivitamin 1 tab PO DAILY 11/22/18 11/22/18 History perphenazine 8 mg PO TID 11/22/18 11/22/18 History polyethylene glycol 3350 17 g PO DAILY@1200 PRN 11/22/18 11/22/18 History simethicone 80 mg PO ACHS PRN 11/22/18 11/22/18 History Allergies Allergy/AdvReac Type Severity Reaction Status Date / Time olanzapine Allergy Mild "IT DOES Verified 11/22/18 11:18 NOT WORK" risperidone Allergy Unknown UNKNOWN Verified 11/22/18 11:18 Tricyclic Antidepressants Allergy Unknown . Uncoded 11/22/18 11:18 Flu Virus Vaccine AdvReac Unknown CAUSES Uncoded 11/22/18 11:18 PAIN AT INJECTION SITE Past Med/Surg History Medical History H/O: CVA (cerebrovascular accident) (Chronic) Schizoaffective disorder (Chronic) HTN (hypertension) (Chronic) Dementia (Chronic) Surgical History Hx of cataract surgery (Chronic) S/P tonsillectomy (Chronic) Family History Other Hypertension Social History Preferred Language: Korean Communication Ability: Effective Beliefs That Will Affect Care: None Current Living Situation: Personal Care Facility Current Living Situation Comment: [facility] Other Information That Helps Us Care for You: No Feels Safe at Home: Yes Safety Concerns: Feels Safe At This Time Smoking Status: Former smoker Years Smoked: 50 ; Hx Alcohol Use: No (quit 11 years ago ) Hx Substance Use: No Review of Systems See HPI for pertinent positives & negatives. and A total of 10 systems reviewed and were otherwise negative Physical Exam Vital Signs Vital Signs - 24 hr 11/22/18 09:55 11/22/18 09:58 11/22/18 09:59 Temperature 36.8 C Temperature Source Oral Sepsis Recent Fever Within 48 Hours No Sepsis New/Unexplained Change in Mental Status No Sepsis Action Taken by Nursing No Action Required Pulse Rate 80 88 Pulse Rate from SpO2 Sensor 80 Respiratory Rate 17 18 Respiratory Effort / Characteristics Respiratory Depth Normal Blood Pressure 123/61 123/61 Blood Pressure Mean 81 81 Pulse Oximetry 97 98 98 Oxygen Delivery Method Room Air Room Air 11/22/18 10:13 11/22/18 10:30 11/22/18 11:27 Temperature Temperature Source Sepsis Recent Fever Within 48 Hours Sepsis New/Unexplained Change in Mental Status Sepsis Action Taken by Nursing Pulse Rate 78 95 H 75 Pulse Rate from SpO2 Sensor 77 Respiratory Rate 22 22 16 Respiratory Effort / Characteristics Respiratory Depth Blood Pressure 154/80 H 160/86 H 144/80 H Blood Pressure Mean 104 110 101 Pulse Oximetry 98 98 Oxygen Delivery Method Room Air 11/22/18 11:30 11/22/18 11:31 Temperature Temperature Source Sepsis Recent Fever Within 48 Hours Sepsis New/Unexplained Change in Mental Status Sepsis Action Taken by Nursing Pulse Rate 91 H Pulse Rate from SpO2 Sensor 90 Respiratory Rate 22 Respiratory Effort / Characteristics Non-Labored Spontaneous Respiratory Depth Normal Blood Pressure 149/77 H Blood Pressure Mean 101 Pulse Oximetry 99 Oxygen Delivery Method Room Air Room Air GENERAL: Patient is in no acute distress. HEENT: No acute trauma, normocephalic atraumatic, mucous membranes dry, no nasal congestion, no scleral icterus. NECK: No stridor, no adenopathy, no meningismus, trachea is midline. LUNGS: Clear to auscultation bilaterally when listening anteriorly, no wheeze, no rhonchi, breath sounds equal. HEART: Without murmurs gallops or rubs, regular rate and rhythm. ABDOMEN: Soft, nontender, bowel sounds positive, no hernias, no peritonitis. EXTREMITIES: No cyanosis, mild bilateral pedal edema, full range of motion of all the joints without pain or difficulty, no signs for acute trauma. NEUROLOGIC: Oriented x 3, no acute motor or sensory deficits, no focal weakness. SKIN: No rash, no jaundice, no diaphoresis. Course 1004: The patient was evaluated in room B10 and a complete history and physical were performed. 1057: I reevaluated the patient. I discussed my recommendation he remain in the hospital for further evaluation and management and he is agreeable with the plan. He admits he has been coughing a lot more recently. 1100: I discussed the patients case with Ottoniel Wolf Hospitalist. The patient will be further evaluated. Consultations Consultation #1: I discussed the patients case with Ottoniel Wolf Hospitalist. The patient will be further evaluated. Time: 11:00 Administered Medications Amlodipine Besylate (Norvasc) 10 mg PO DAILY [facility] Stop: 12/22/18 15:14 Last Admin: 11/22/18 16:28 Dose: 10 mg Documented by: [id number] Sodium Chloride (Nss 1000ml) 1,000 mls @ 80 mls/hr IV .[id number] SHERIE Stop: 11/23/18 02:59 Last Admin: 11/22/18 15:44 Dose: 80 mls/hr Documented by: [id number] Azithromycin 500 mg/ Dextrose 255 mls @ 125 mls/hr IV Q24H SHERIE; Protocol Stop: 11/27/18 15:59 Last Admin: 11/22/18 16:40 Dose: 125 mls/hr Documented by: [id number] Ceftriaxone Sodium 2,000 mg/ (Dextrose) 70 mls @ 100 mls/hr IV Q24H SHERIE; Protocol Stop: 11/28/18 16:11 Last Infusion: 11/22/18 16:36 Dose: 0 mls/hr Documented by: [id number] Admin: 11/22/18 15:47 Dose: 100 mls/hr Documented by: [id number] Discontinued Medications Sodium Chloride (Nss) 500 mls @ 999 mls/hr IV .Q31M SHERIE Stop: 11/22/18 10:45 Last Infusion: 11/22/18 10:50 Dose: 0 mls/hr Documented by: [id number] Admin: 11/22/18 10:16 Dose: 999 mls/hr Documented by: [id number] Piperacillin Sod/Tazobactam Sod (Zosyn) 4.5 gm in 120 mls @ 240 mls/hr IV NOW ONE Stop: 11/22/18 11:22 Last Infusion: 11/22/18 11:59 Dose: 0 mls/hr Documented by: [id number] Admin: 11/22/18 11:25 Dose: 240 mls/hr Documented by: [id number] Medical Decision Making Differential Diagnosis The differential diagnoses considered include stroke, intracranial bleeding, UTI, dehydration, pneumonia, renal or liver failure, electrolyte imbalance, debilitation. Medical Records Attestation: I reviewed the patient's medical records. Home Medications Current Medication List: was personally reviewed by me Laboratory Data Attestation: I reviewed the patient's lab results. Result diagrams: 11/22/18 10:13 11/22/18 10:13 Lab Results 11/22/18 11/22/18 11/22/18 Range/Units 10:13 10:13 10:14 WBC 11.58 H (4.8-10.8) K/uL RBC 4.04 L (4.7-6.1) M/uL Hgb 11.7 L (14.0-18.0) g/dL Hct 34.8 L (42-52) % MCV 86.1 (80-100) fL MCH 29.0 (25-34) pg MCHC 33.6 (32-36) g/dL RDW Std Deviation 46.6 H (36.4-46.3) fL RDW Coeff of So 14.8 H (11.5-14.5) % Plt Count 260 (130-400) K/uL MPV 8.6 (7.4-10.4) fL Immature Gran % (Auto) 0.3 % Neut % (Auto) 75.1 % Lymph % (Auto) 13.6 % [place] % (Auto) 8.2 % Eos % (Auto) 2.4 % Baso % (Auto) 0.4 % Immature Gran # (Auto) 0.03 H (0.00-0.02) K/uL Neut # (Auto) 8.69 H (1.4-6.5) K/uL Lymph # (Auto) 1.58 (1.2-3.4) K/uL [place] # (Auto) 0.95 H (0.11-0.59) K/uL Eos # (Auto) 0.28 (0-0.5) K/uL Baso # (Auto) 0.05 (0-0.2) K/uL PT 11.3 (9.0-12.0) Seconds INR 1.1 (0.9-1.1) Sodium 140 (136-145) mmol/L Potassium 4.4 (3.5-5.1) mmol/L Chloride 108 H (98-107) mmol/L Carbon Dioxide 27 (21-32) mmol/L Anion Gap 5.0 (3-11) BUN 29 H (7-18) mg/dl Creatinine 1.26 (0.6-1.4) mg/dl Est Cr Clr Drug Dosing 46.7 ml/min Est GFR ( Amer) 62.9 Est GFR (Non-Af Amer) 54.3 BUN/Creatinine Ratio 23.1 H (10-20) Glucose 98 (70-99) mg/dl Calcium 9.0 (8.5-10.1) mg/dl Magnesium 2.3 (1.8-2.4) mg/dl Total Bilirubin 0.4 (0.2-1) mg/dl AST 8 L (15-37) U/L ALT 13 (12-78) U/L Alkaline Phosphatase 86 (45-117) U/L Total Creatine Kinase 30 L (39-308) U/L Troponin I < 0.015 (0-0.045) ng/ml Total Protein 7.3 (6.4-8.2) gm/dl Albumin 3.4 (3.4-5.0) gm/dl Globulin 3.9 (2.5-4.0) gm/dl Albumin/Globulin Ratio 0.9 (0.9-2) TSH 1.260 (0.300-4.500) uIu/ml Urine Color Urine Appearance (Clear) Urine pH (4.5-7.5) Ur Specific [place] (1.000-1.030) Urine Protein (Negative) Urine Glucose (UA) (Negative) Urine Ketones (Negative) Urine Blood (Negative) Urine Nitrite (Negative) Urine Bilirubin (Negative) Urine Urobilinogen (Negative) Ur Leukocyte Esterase (Negative) Urine WBC (Auto) (0-5) /hpf Urine RBC (Auto) (0-4) /hpf U Hyaline Cast (Auto) (0-5) /lpf U Epithel Cells (Auto) (0-5) /lpf Urine Bacteria (Auto) (Negative) 11/22/18 Range/Units 10:42 WBC (4.8-10.8) K/uL RBC (4.7-6.1) M/uL Hgb (14.0-18.0) g/dL Hct (42-52) % MCV (80-100) fL MCH (25-34) pg MCHC (32-36) g/dL RDW Std Deviation (36.4-46.3) fL RDW Coeff of So (11.5-14.5) % Plt Count (130-400) K/uL MPV (7.4-10.4) fL Immature Gran % (Auto) % Neut % (Auto) % Lymph % (Auto) % [place] % (Auto) % Eos % (Auto) % Baso % (Auto) % Immature Gran # (Auto) (0.00-0.02) K/uL Neut # (Auto) (1.4-6.5) K/uL Lymph # (Auto) (1.2-3.4) K/uL [place] # (Auto) (0.11-0.59) K/uL Eos # (Auto) (0-0.5) K/uL Baso # (Auto) (0-0.2) K/uL PT (9.0-12.0) Seconds INR (0.9-1.1) Sodium (136-145) mmol/L Potassium (3.5-5.1) mmol/L Chloride (98-107) mmol/L Carbon Dioxide (21-32) mmol/L Anion Gap (3-11) BUN (7-18) mg/dl Creatinine (0.6-1.4) mg/dl Est Cr Clr Drug Dosing ml/min Est GFR ( Amer) Est GFR (Non-Af Amer) BUN/Creatinine Ratio (10-20) Glucose (70-99) mg/dl Calcium (8.5-10.1) mg/dl Magnesium (1.8-2.4) mg/dl Total Bilirubin (0.2-1) mg/dl AST (15-37) U/L ALT (12-78) U/L Alkaline Phosphatase (45-117) U/L Total Creatine Kinase (39-308) U/L Troponin I (0-0.045) ng/ml Total Protein (6.4-8.2) gm/dl Albumin (3.4-5.0) gm/dl Globulin (2.5-4.0) gm/dl Albumin/Globulin Ratio (0.9-2) TSH (0.300-4.500) uIu/ml Urine Color Yellow Urine Appearance Cloudy A (Clear) Urine pH 6.0 (4.5-7.5) Ur Specific [place] 1.015 (1.000-1.030) Urine Protein Negative (Negative) Urine Glucose (UA) Negative (Negative) Urine Ketones Negative (Negative) Urine Blood Negative (Negative) Urine Nitrite Negative (Negative) Urine Bilirubin Negative (Negative) Urine Urobilinogen Negative (Negative) Ur Leukocyte Esterase 3+ H (Negative) Urine WBC (Auto) >30 H (0-5) /hpf Urine RBC (Auto) 0-4 (0-4) /hpf U Hyaline Cast (Auto) 1-5 (0-5) /lpf U Epithel Cells (Auto) 0-5 (0-5) /lpf Urine Bacteria (Auto) 2+ H (Negative) Imaging Data Radiologist's Impression: Radiology results as stated below per my review and the radiologist's interpretation: CT head/brain wo con CT DOSE: 614.27 mGy.cm HISTORY: Mental status change weakness TECHNIQUE: Multiaxial CT images of the head were performed without the use of intravenous contrast. A dose lowering technique was utilized adhering to the principles of ALARA. Comparison: None. Findings: The paranasal sinuses and mastoid air cells are clear. The calvarium and skull base are intact. The ventricles and sulci are within normal limits. There is no mass, hematoma, midline shift, or acute infarct. Age-related chronic small vessel change and atrophy Impression: No acute intracranial abnormality. Age-related chronic small vessel change and atrophy The above report was generated using voice recognition software. It may contain grammatical, syntax or spelling errors. Electronically signed by: Demetris Sam M.D. 11/22/2018 10:54 AM XR chest 1V portable CLINICAL HISTORY: weakness dyspnea COMPARISON STUDY: 07/14/2017 FINDINGS: Small bibasilar parenchymal infiltrative change. Mid and upper lungs are clear. Diaphragms are smooth. IMPRESSION: Small bibasilar parenchymal infiltrates. The above report was generated using voice recognition software. It may contain grammatical, syntax or spelling errors. Electronically signed by: Demetris Sam M.D. 11/22/2018 10:19 AM ECG Data Attestation: I personally reviewed and interpreted this ECG as follows: Indication: weakness Rate (beats per minute): 78 Rhythm: normal sinus Findings: no PVC and no ST elevation Blood Pressure Blood Pressure Findings: Elevated blood pressure Blood Pressure Disposition: further management by hospitalist MDM Narrative There is a mild leukocytosis, this could be consistent with infection. The patient is somewhat anemic with a hemoglobin of 11.7. Patient does carry a history of anemia. No coagulopathy. No significant electrolyte abnormality or kidney failure. No elevation to the liver enzymes. The patient appeared to be in a euthyroid state. EKG showed a sinus rhythm, no acute ischemia. Cardiac enzyme testing x1 is not consistent with acute cardiac injury. Urinalysis does suggest infection. Blood cultures are pending. Chest film shows potential bilateral lower lobe pneumonia. Brain CT shows no acute bleed or mass-effect. The patient presents with weakness. He could not get out of his chair today. He has had an increased cough as of late. Work-up here suggest a potential pneumonia, there also appears to be a UTI. Certainly, infection could be causing his weakness. The patient received IV saline for hydration, he was given IV Zosyn as antibiotic coverage. Given the findings of UTI, given the possible pneumonia, given his weakness, hospitalization is warranted. I spoke to case management, the on-call hospitalist was consulted. I discussed my findings with the patient. Impression & Plan Weakness, Pneumonia, Leukocytosis, UTI (urinary tract infection) Discharge Plan Visit Data *Final* Discharge Date/Time: 11/22/18 12:16 Chief Complaint: Illness ED Provider: Jason Hills Discharge Problem: Weakness, Pneumonia, Leukocytosis, UTI (urinary tract infection) Patient Disposition: Admitted As Inpatient Discharge Instructions Interventions: ED Discharge Assessment Last Done: 11/22/18 12:16 The scribe's documentation has been prepared under my direction and personally reviewed by me in its entirety. I confirm that the note above accurately reflects all work, treatment, procedures, and medical decision making performed by me.
[2018-11-22] MEDS: AMLODIPINE BESYLATE 5 MG TAB PO SCH (16:28)
[2018-11-22] MEDS: AZITHROMYCIN 500 MG in DEXTROSE 5% 250 ML IV SCH (16:40)
[2018-11-22] MEDS ORDERED: PIPERACILLIN/TAZOBACTAM 3.375 GM in DEXTROSE 5% 100 ML IV SCH (18:00)
[2018-11-22] MEDS: ARTIFICIAL TEARS OPB SCH (21:02)
[2018-11-22] MEDS: DOCUSATE SODIUM 100 MG CAP PO SCH (21:04)
[2018-11-22] MEDS: BENZTROPINE MESYLATE 1 MG TAB PO SCH (21:04)
[2018-11-22] MEDS: MIRTAZAPINE TAB 15 MG TAB PO SCH (21:07)
[2018-11-22] MEDS: MEMANTINE HCL 10 MG TAB PO SCH (21:07)
[2018-11-22] MEDS: PERPHENAZINE 2 MG TABLET PO SCH (21:08)
[2018-11-22] MEDS: HEPARIN SOD 5,000 UNIT/0.5 ML VIAL SQ SCH (21:09)
[2018-11-23] MEDS: HEPARIN SOD 5,000 UNIT/0.5 ML VIAL SQ SCH ×3 (05:32→21:32)
[2018-11-23 07:04] LABS: Hematocrit (blood only) 33.7 % (42-52); Hemoglobin 11.3 g/dL (14.0-18.0); Mean Corpuscular Hemoglobin 28.8 pg (25-34); Mean Corpuscular Hgb Conc 33.5 g/dL (32-36); Mean Corpuscular Volume 85.8 fL (80-100); Mean Platelet Volume 8.8 fL (7.4-10.4); Platelet Count 246 K/uL (130-400); RDW Coefficient of Variation 14.6 % (11.5-14.5); RDW Standard Deviation 45.9 fL (36.4-46.3); Red Blood Count 3.93 M/uL (4.7-6.1); White Blood Count 11.93 K/uL (4.8-10.8)
[2018-11-23 07:45] LABS: BUN Creatinine Ratio 17.9 (10-20); Calcium 8.6 mg/dl (8.5-10.1); Creatinine Clr Calc Pharmacy 56.6 ml/min; Est GFR (Non-African American) 61.3; Potassium 4.3 mmol/L (3.5-5.1)
[2018-11-23] MEDS: BENZTROPINE MESYLATE 1 MG TAB PO SCH ×2 (07:55→21:31)
[2018-11-23] MEDS: AMLODIPINE BESYLATE 5 MG TAB PO SCH (07:55)
[2018-11-23] MEDS: MULTIVITAMIN TAB PO SCH (07:56)
[2018-11-23] MEDS: ASPIRIN 81 MG ECTAB PO SCH (07:56)
[2018-11-23] MEDS: MENTHOL-ZINC OXIDE 360 APPLN/120 GM TUBE EXT SCH (07:57)
[2018-11-23] MEDS: MEMANTINE HCL 10 MG TAB PO SCH ×2 (07:57→21:31)
[2018-11-23] MEDS: DOCUSATE SODIUM 100 MG CAP PO SCH ×2 (07:57→21:30)
[2018-11-23] MEDS: ARTIFICIAL TEARS OPB SCH ×2 (07:58→21:29)
[2018-11-23] MEDS: PERPHENAZINE 2 MG TABLET PO SCH ×3 (09:30→21:30)
--- NOTE | 2018-11-23 11:21 | Hospitalist Progress Note ---
Date of Service November 23, 2018 Assessment & Plan (1) Pneumonia: This is a 78yo M from [facility] in [place] with a PMH of vascular dementia, schizoaffective disorder, HTN, history of CVA and other medical problems listed below who presents with worsening generalized weakness x 1 week Chest x-ray shows small bibasilar infiltrate No evidence of sepsis -Afebrile and hemodynamically stable. No hypoxia or SOB -Mild leukocytosis of 11.58 -Concern for possible aspiration pneumonia: High risk given baseline dementia, poorly fitting denture, prior history of aspiration, required speech evaluation,had changed/altered food consistency to minced and moist diet - Appreciate input from speech pathology, continued aspiration precaution, minced and moist diet with supervision during meals No overt signs or symptoms of aspiration noted during this hospital visit We will change antibiotic to p.o. Augmentin: Complete total 5 days of course Present on Admission?: Yes (2) UTI (urinary tract infection): Urinalysis with presence of leuk esterase and 2+ bacteria (3) Acute kidney injury: Cr elevated at 1.26 today (baseline 0.8-0.9) -In setting of dehydration, infection -Given IV fluid, creatinine improved to 1.0 Patient is having adequate intake, IV fluids discontinued Lisinopril will be resumed (4) Schizoaffective disorder: Stable No agitation, confusion, or visual or auditory hallucination -got monthly injection of Prolixin today -Continue Prolixin Hcl Q6H PRN, Ativan PRN-Home meds (5) Hypertension: Continue amlodipine, lisinopril be resumed as renal function is back to baseline (6) H/O: CVA (cerebrovascular accident): Continue baby aspirin (7) Hemangioma of lip: 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 PCP: Reyes Dispo: Lives at personal ch[facility] at [facility] appreciate PT OT evaluation Patient is stable to return back to personal ch[facility] possibly tomorrow Subjective Has minimum cough, afebrile, no shortness of breath hypoxia, remains in room air Very pleasant, no agitation or confusion noted Afebrile, vitals are stable Tolerating diet: Minched and moist diet diet consistency was changed per speech recommendation Per nursing: No sign or symptom of overt aspiration, coughing during meals noted Physical Exam Constitutional: WD/WN, vitals as above no acute distress Pleasant, conversing appropriately Eyes: sclerae not anicteric ENMT: external ear and nose normal, oropharynx normal Mouth: + lip abnormality (Right upper lip swelling: Chronic) Chronic swelling noted on right upper lip: Neck: trachea midline, no thyromegaly Respiratory: normal respiratory effort and + cough Auscultation: no crackles, no rales, no rhonchi and no wheezes Cardiovascular: RRR, no murmur, no edema Gastrointestinal (Abdomen): normal bowel sounds, soft, nontender, no hepatosplenomegaly Musculoskeletal: no cyanosis or clubbing, extremities motor strength 5/5 Skin: no rashes, warm and dry Neurologic: PERRL, EOMI, accommodation nl, no face palsy, no dysarthria Psychiatric: Orientation: alert and oriented x 3 No agitation, confusion, hallucination noted Results & Data Vital Signs (Past 12 Hours) Vital Signs Temp Pulse Pulse Resp BP BP Pulse Ox 11/23/18 11:10 36.4 C L 77 18 160/77 H 97 11/23/18 07:24 36.4 C L 70 18 110/62 98 11/23/18 07:08 80 11/23/18 04:00 36.4 C L 78 20 142/66 H 97 (1) Schizoaffective disorder Schizoaffective disorder type: unspecified Qualified Code(s): F25.9 - Schizoaffective disorder, unspecified (2) Hypertension Hypertension type: unspecified Qualified Code(s): I10 - Essential (primary) hypertension
[2018-11-23] MEDS: cefTRIAXone SODIUM 2,000 MG in DEXTROSE 5% 50 ML IV SCH (15:14)
[2018-11-23] MEDS: AZITHROMYCIN 500 MG in DEXTROSE 5% 250 ML IV SCH (16:06)
[2018-11-23] MEDS: MIRTAZAPINE TAB 15 MG TAB PO SCH (21:31)
[2018-11-23] MEDS: AMOXICILLIN/CLAVULANATE 875 MG TAB PO SCH (21:31)
[2018-11-24] MEDS: HEPARIN SOD 5,000 UNIT/0.5 ML VIAL SQ SCH (06:00)
[2018-11-24 07:34] LABS: Hematocrit (blood only) 30.1 % (42-52); Hemoglobin 10.1 g/dL (14.0-18.0); Mean Corpuscular Hemoglobin 28.5 pg (25-34); Mean Corpuscular Hgb Conc 33.6 g/dL (32-36); Mean Platelet Volume 8.8 fL (7.4-10.4); Platelet Count 239 K/uL (130-400); RDW Coefficient of Variation 14.8 % (11.5-14.5); RDW Standard Deviation 46.6 fL (36.4-46.3); Red Blood Count 3.54 M/uL (4.7-6.1); White Blood Count 9.46 K/uL (4.8-10.8)
--- NOTE | 2018-11-24 07:57 | Hospitalist Progress Note ---
Date of Service November 24, 2018 Subjective CHRONIC DYSPHAGIA /ASPIRATION PNEUMONITIS : admitted with cough /generalized weakness Cxray shows bibasilar infiltrate -concern for possible aspiration Appreciate input from speech therapy: Patient has chronic dysphagia: Difficulty in chewing and swallowing Evaluated by speech therapy in the past on 07/2017, Recommendation is to continue with minced and moist chopped diet Strict Aspiration precaution: Patient should be kept upright during each meals alternate with solid and liquids Mesha Arciniega MD Results & Data Vital Signs (Past 12 Hours) Vital Signs Temp Pulse Resp BP BP Pulse Ox 11/24/18 07:25 37.0 C 73 18 148/85 H 95 11/23/18 23:23 36.6 C 88 19 121/69 95
[2018-11-24 08:05] LABS: BUN Creatinine Ratio 15.7 (10-20); Calcium 8.4 mg/dl (8.5-10.1); Creatinine Clr Calc Pharmacy 57.6 ml/min; Est GFR (African American) 72.5; Est GFR (Non-African American) 62.6; Potassium 4.4 mmol/L (3.5-5.1)
[2018-11-24] MEDS ORDERED: lisinopriL 20 MG TAB PO SCH (09:00)
[2018-11-24] MEDS: ASPIRIN 81 MG ECTAB PO SCH (09:32)
[2018-11-24] MEDS: AMOXICILLIN/CLAVULANATE 875 MG TAB PO SCH (09:32)
[2018-11-24] MEDS: MEMANTINE HCL 10 MG TAB PO SCH (09:32)
[2018-11-24] MEDS: BENZTROPINE MESYLATE 1 MG TAB PO SCH (09:32)
[2018-11-24] MEDS: MENTHOL-ZINC OXIDE 360 APPLN/120 GM TUBE EXT SCH (09:33)
[2018-11-24] MEDS: AMLODIPINE BESYLATE 5 MG TAB PO SCH (09:33)
[2018-11-24] MEDS: DOCUSATE SODIUM 100 MG CAP PO SCH (09:33)
[2018-11-24] MEDS: MULTIVITAMIN TAB PO SCH (09:33)
[2018-11-24] MEDS: PERPHENAZINE 2 MG TABLET PO SCH (09:34)
[2018-11-24] MEDS: ARTIFICIAL TEARS OPB SCH (09:34)
--- NOTE | 2018-11-24 11:21 | Hospitalist Progress Note ---
Date of Service November 24, 2018 Assessment & Plan (1) Pneumonia: This is a 78yo M from [facility] in [place] with a PMH of vascular dementia, schizoaffective disorder, HTN, history of CVA and other medical problems listed below who presents with worsening generalized weakness x 1 week Chest x-ray shows small bibasilar infiltrate /possible aspiration No evidence of sepsis -Afebrile and hemodynamically stable. No hypoxia or SOB -Concern for possible aspiration pneumonia: High risk given baseline dementia, poorly fitting denture, prior history of aspiration, required speech evaluation,had changed/altered food consistency to minced and moist diet - Appreciate input from speech pathology, continued aspiration precaution, minced and moist diet with supervision during meals No overt signs or symptoms of aspiration noted during this hospital visit antibiotic changed to p.o. Augmentin: Complete total 5 days of course (2) Dysphagia: CHRONIC DYSPHAGIA /ASPIRATION PNEUMONITIS : admitted with cough /generalized weakness -symptom has completely resolved Sitting up on chair, tolerating diet, no cough or shortness of breath Appreciate input from speech therapy: Patient has chronic dysphagia: Difficulty in chewing and swallowing Evaluated by speech therapy in the past on 07/2017, Recommendation is to continue with minced and moist chopped diet Strict Aspiration precaution: Patient should be kept upright during each meals alternate with solid and liquids (3) UTI (urinary tract infection): Urinalysis with presence of leuk esterase and 2+ bacteria Urine culture: E. coli sensitive to Augmentin Complete 5 days of p.o. Augmentin treatment (4) Acute kidney injury: Cr elevated at 1.26 t on admission (baseline 0.8-0.9) -In setting of dehydration, infection -Given IV fluid, creatinine improved to 1.0 Patient is having adequate intake, IV fluids discontinued Resumed lisinopril (5) Schizoaffective disorder: Stable No agitation, confusion, or visual or auditory hallucination -got monthly injection of Prolixin on 11/23/2018 -Continue Prolixin Hcl Q6H PRN, Ativan PRN-Home meds (6) Hypertension: Continue amlodipine, lisinopril resumed as renal function is back to baseline (7) H/O: CVA (cerebrovascular accident): Continue baby aspirin (8) Hemangioma of lip: 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 PCP: Reyes Dispo: Lives at personal shelter at [facility] appreciate PT OT evaluation Patient is stable to return back to personal shelter Medically stable to return back to personal shelter today with oral antibiotic Physical Exam Constitutional: WD/WN, vitals as above no acute distress Eyes: sclerae not anicteric ENMT: external ear and nose normal, oropharynx normal Mouth: + lip abnormality (Right upper lip swelling: Chronic) Neck: trachea midline, no thyromegaly Respiratory: normal respiratory effort and + cough Auscultation: no crackles, no rales, no rhonchi and no wheezes Cardiovascular: RRR, no murmur, no edema Gastrointestinal (Abdomen): normal bowel sounds, soft, nontender, no hepatosplenomegaly Musculoskeletal: no cyanosis or clubbing, extremities motor strength 5/5 Skin: no rashes, warm and dry Neurologic: PERRL, EOMI, accommodation nl, no face palsy, no dysarthria Psychiatric: Orientation: alert and oriented x 3 Results & Data Vital Signs (Past 12 Hours) Vital Signs Temp Pulse Resp BP BP Pulse Ox 11/24/18 07:25 37.0 C 73 18 148/85 H 95 11/23/18 23:23 36.6 C 88 19 121/69 95 (1) UTI (urinary tract infection) Urinary tract infection type: site unspecified Hematuria presence: without hematuria Qualified Code(s): N39.0 - Urinary tract infection, site not specified (2) Schizoaffective disorder Schizoaffective disorder type: unspecified Qualified Code(s): F25.9 - Schizoaffective disorder, unspecified (3) Hypertension Hypertension type: unspecified Qualified Code(s): I10 - Essential (primary) hypertension (4) Pneumonia Pneumonia type: aspiration pneumonia Laterality: bilateral Lung location: lower lobe of lung Aspiration pneumonia type: unspecified Qualified Code(s): J69.0 - Pneumonitis due to inhalation of food and vomit (5) Dysphagia Dysphagia type: unspecified Qualified Code(s): R13.10 - Dysphagia, unspecified
[2018-11-24 12:17] VITALS: TEMP 97.7; O2SAT 98
--- NOTE | 2018-11-24 12:20 | Discharge Summary ---
Date of Service November 24, 2018 Admission HPI Per Admitting Provider This is a 78yo M with a PMH of vascular dementia, schizoaffective disorder, HTN, history of CVA and other medical problems listed below who presents with worsening generalized weakness x 1 week. Patient resides at [facility] assisted living in [place]. Has been feeling generally weak over the past week with progressive worsening. Was unable to get out of his chair this morning, which is unusual for him. Normally ambulates with a walker. Also complaining of dull headache, nausea and dry cough. Denies fever, chills, lightheadedness chest pain, shortness of breath, vomiting, abdominal pain, dysuria, hematuria, frequency of urination, diarrhea constipation. Denies poor appetite or fluid intake. Since arrival in ED, patient has been given normal saline 500 ml and Zosyn. No longer with headache or nausea. Afebrile and hemodynamically stable. Mild leukocytosis of 11.58. Urinalysis with presence of leuk esterase and 2+ bacteria. CXR with small bibasilar parenchymal infiltrates. Did not take any medications this morning prior to arrival. Office of aging is involved in patient's care, per discussion with [facility]. Principal Diagnosis PNEUMONIA/ASPIRATION PNEUMONITITS/CHRONIC DYSPHAGIA/SCHIZOAFFECTIVE DISORDER/E COLI UTI Discharge Exam Constitutional WD/WN, vitals as above no acute distress Eyes sclerae not anicteric ENMT external ear and nose normal, oropharynx normal Mouth: + lip abnormality (Right upper lip swelling: Chronic) Neck trachea midline, no thyromegaly Respiratory normal respiratory effort and + cough Auscultation: no crackles, no rales, no rhonchi and no wheezes Cardiovascular RRR, no murmur, no edema Gastrointestinal (Abdomen) normal bowel sounds, soft, nontender, no hepatosplenomegaly Musculoskeletal no cyanosis or clubbing, extremities motor strength 5/5 Skin no rashes, warm and dry Neurologic PERRL, EOMI, accommodation nl, no face palsy, no dysarthria Psychiatric Orientation: alert and oriented x 3 Discharge Data Allergies Allergy/AdvReac Type Severity Reaction Status Date / Time olanzapine Allergy Mild "IT DOES Verified 11/22/18 11:18 NOT WORK" risperidone Allergy Unknown UNKNOWN Verified 11/22/18 11:18 Tricyclic Antidepressants Allergy Unknown . Uncoded 11/22/18 11:18 Flu Virus Vaccine AdvReac Unknown CAUSES Uncoded 11/22/18 11:18 PAIN AT INJECTION SITE Consultations 11/22/18 11:04 ED Decision to Admit Stat 11/22/18 13:37 Consult Case Management - Discharge Planning Routine Ordered Studies 11/22/18 10:06 CT head/brain wo con Stat Hospital Course (1) Pneumonia: This is a 78yo M from [facility] in [place] with a PMH of vascular dementia, schizoaffective disorder, HTN, history of CVA and other medical problems listed below who presents with worsening generalized weakness x 1 week Chest x-ray shows small bibasilar infiltrate /possible aspiration No evidence of sepsis -Afebrile and hemodynamically stable. No hypoxia or SOB -Concern for possible aspiration pneumonia: High risk given baseline dementia, poorly fitting denture, prior history of aspiration, required speech evaluation,had changed/altered food consistency to minced and moist diet - Appreciate input from speech pathology, continued aspiration precaution, minced and moist diet with supervision during meals No overt signs or symptoms of aspiration noted during this hospital visit antibiotic changed to p.o. Augmentin: Complete total 5 days of course (2) Dysphagia: CHRONIC DYSPHAGIA /ASPIRATION PNEUMONITIS : admitted with cough /generalized weakness -symptom has completely resolved Sitting up on chair, tolerating diet, no cough or shortness of breath Appreciate input from speech therapy: Patient has chronic dysphagia: Difficulty in chewing and swallowing Evaluated by speech therapy in the past on 07/2017, Recommendation is to continue with minced and moist chopped diet Strict Aspiration precaution: Patient should be kept upright during each meals alternate with solid and liquids (3) UTI (urinary tract infection): Urinalysis with presence of leuk esterase and 2+ bacteria Urine culture: E. coli sensitive to Augmentin Complete 5 days of p.o. Augmentin treatment (4) Acute kidney injury: Cr elevated at 1.26 t on admission (baseline 0.8-0.9) -In setting of dehydration, infection -Given IV fluid, creatinine improved to 1.0 Patient is having adequate intake, IV fluids discontinued Resumed lisinopril (5) Schizoaffective disorder: Stable No agitation, confusion, or visual or auditory hallucination -got monthly injection of Prolixin on 11/23/2018 -Continue Prolixin Hcl Q6H PRN, Ativan PRN-Home meds (6) Hypertension: Continue amlodipine, lisinopril resumed as renal function is back to baseline (7) H/O: CVA (cerebrovascular accident): Continue baby aspirin (8) Hemangioma of lip: 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 PCP: Reyes Dispo: Lives at personal shelter at [facility] appreciate PT OT evaluation Patient is stable to return back to personal shelter Medically stable to return back to personal shelter today with oral antibiotic Total Time Total Time Spent Total Time Spent (In Minutes): Approximate 40 minutes Total Time Includes: Examination of the Patient, Discharge Planning and Medication Reconciliation Discharge Plan Discharge Items Patient Disposition: Personal Long-Term Reason For Visit: PNEUMONIA Discharge Diagnosis: PNEUMONIA/ASPIRATION PNEUMONITITS/CHRONIC DYSPHAGIA/SCHIZOAFFECTIVE DISORDER/E COLI UTI Discharge Goals: Decrease discomfort Activity: Resume your previous activity Non-emergency contact: Primary Care Provider Call non-emergency contact if: you have any medication questions [facility] [Primary Care Provider] - Diet: Heart Healthy Diet Texture: Dental soft (bite-sized) Add Provider Instructions: DIET RECOMMENDATION: CHRONIC DYSPHAGIA PATIENT REMAINS HIGH ASPIRATION RISK Continue: Moist and minced diet, Observed aspiration precaution: Patient should be upright during each meals, Alternate between solid and liquid New medication: Augmentin 1 tab by mouth twice daily for 5 days-antibiotic for aspiration pneumonia/E. coli UTI Follow-up with physician at [facility] Prescriptions: New amoxicillin-pot clavulanate 875-125 mg Tablet 1 tab PO BIDM 5 Days Qty: 10 RF: 0 Continued multivitamin Tablet 1 tab PO DAILY RF: 0 acetaminophen 325 mg Tablet 650 mg PO Q4H PRN (Reason: Pain) RF: 0 fluphenazine HCl 2.5 mg Tablet 2.5 mg PO Q6H PRN (Reason: mood) RF: 0 polyethylene glycol 3350 17 gram Powder In Packet 17 g PO DAILY@1200 PRN (Reason: Constipation) RF: 0 lisinopril 20 mg Tablet 20 mg PO DAILY RF: 0 aspirin 81 mg Tablet,Delayed Release (Dr/Ec) 81 mg PO DAILY RF: 0 lorazepam 0.5 mg Tablet 0.5 mg SUBLINGUAL TID PRN (Reason: Anxiety) RF: 0 fluphenazine decanoate 25 mg/mL Solution 25 mg IM MONTHLY RF: 0 amlodipine 10 mg Tablet 10 mg PO DAILY RF: 0 mirtazapine 30 mg Tablet 30 mg PO HS RF: 0 calcium carbonate [Calcium Antacid] 200 mg calcium (500 mg) Tablet,Chewable 200 mg PO Q4H PRN (Reason: Dyspepsia) RF: 0 benztropine 1 mg Tablet 1 mg PO HS RF: 0 benztropine 2 mg Tablet 2 mg PO QAM RF: 0 perphenazine 8 mg Tablet 8 mg PO TID RF: 0 docusate sodium 100 mg Tablet 100 mg PO BID RF: 0 simethicone 80 mg Tablet,Chewable 80 mg PO ACHS PRN (Reason: Gi Upset) RF: 0 [place]'s wort 300 mg Capsule 300 mg PO DAILY RF: 0 Artificial Tears (PF) Dropperette 1 drp OPB BID RF: 0 memantine 10 mg Tablet 10 mg PO BID RF: 0 Bengay Greaseless 15-10 % Cream 1 applic TOPICAL QID PRN (Reason: Pain) RF: 0 Calmoseptine 0.44-20.6 % Ointment 1 applic TOPICAL DAILY RF: 0 Cepacol Sore Throat (anand-men) 15-2.6 mg Lozenge 1 sheila PO Q4H PRN (Reason: Sore Throat) RF: 0 Stand-Alone Forms: [facility] Discharge Orders: Discharge Order (Routine); Ordered 11/24/18 Ordered By: Mesha Arciniega Admission Data Admit Date/Time: 11/22/18 11:37 Attending Provider: Mesha Arciniega Admit Provider: Fanny Leger Primary Care Provider: GWEN ORTIZ GENIE Other Providers: Savana Cantu Sabrina M. Service: Telemetry Medical
[2018-11-24 12:40] VITALS: BP 148/85; PULSE 75
== END 2018-11-24 13:53 | disposition home or self-care (01) | DRG 178 ==
LOC: ED 09:51 → 2N 11:37 → SUATTDRO 11:37 → 2N 12:16

== ENCOUNTER 2019-02-08 19:33 | Inpatient (IN) ==
[2019-02-08 20:06] LABS: Basophils # (auto) 0.05 K/uL (0-0.2); Basophils % (auto) 0.3 %; Eosinophils # (auto) 0.24 K/uL (0-0.5); Eosinophils % (auto) 1.2 %; Hematocrit (blood only) 37.8 % (42-52); Hemoglobin 12.5 g/dL (14.0-18.0); Immature Granulocytes # (auto) 0.08 K/uL (0.00-0.02); Immature Granulocytes % (auto) 0.4 %; Lymphocytes # (auto) 1.66 K/uL (1.2-3.4); Lymphocytes % (auto) 8.6 %; Mean Corpuscular Hemoglobin 29.2 pg (25-34); Mean Corpuscular Hgb Conc 33.1 g/dL (32-36); Mean Corpuscular Volume 88.3 fL (80-100); Monocytes # (auto) 0.95 K/uL (0.11-0.59); Monocytes % (auto) 4.9 %; Neutrophils # (auto) 16.26 K/uL (1.4-6.5); Neutrophils % (auto) 84.6 %; Platelet Count 205 K/uL (130-400); RDW Coefficient of Variation 14.4 % (11.5-14.5); RDW Standard Deviation 46.8 fL (36.4-46.3); Red Blood Count 4.28 M/uL (4.7-6.1); White Blood Count 19.24 K/uL (4.8-10.8)
[2019-02-08 20:20] LABS: Albumin Globulin Ratio 0.8 (0.9-2); BUN Creatinine Ratio 10.8 (10-20); Bilirubin,Total 0.4 mg/dl (0.2-1); Calcium 9.2 mg/dl (8.5-10.1); Creatinine Clr Calc Pharmacy 41.5 ml/min; Est GFR (African American) 47.8; Est GFR (Non-African American) 41.3; Globulin 3.6 gm/dl (2.5-4.0); Total Protein 6.6 gm/dl (6.4-8.2)
[2019-02-08 20:56] LABS: INR 1.2 (0.9-1.1); Potassium 4.6 mmol/L (3.5-5.1); Prothrombin Time 11.9 Seconds (9.0-12.0)
[2019-02-08] MEDS ORDERED: SODIUM CHLORIDE 0.9% 1000ML 1,000 ML IV ONE (21:08)
[2019-02-08] MEDS ORDERED: IOVERSOL 100ml IV PRN (21:20)
--- NOTE | 2019-02-08 21:33 | CT Scan Report ---
CT SCAN OF THE BRAIN WITHOUT IV CONTRAST CLINICAL HISTORY: Fall. COMPARISON STUDY: CT of the brain dated 11/22/2018. TECHNIQUE: Unenhanced axial CT scan of the brain is performed from the vertex to the skull base. A do se lowering technique was utilized adhering to the principles of ALARA. CT DOSE: 1836.97 mGy.cm FINDINGS: Brain parenchyma: There are age-related involutional changes noting moderate subcortical and periven tricular microangiopathic change. There is no hemorrhage, mass effect, or evidence of acute territori al ischemia by CT criteria. There is a chronic lacunar infarct in the left thalamus. [place]-white matte r differentiation is preserved. No extra-axial fluid collection is seen. Ventricles, sulci, cisterns: Prominent secondary to involutional change. Intracranial vasculature: There is atherosclerotic calcification of the cavernous carotid and vertebr al arteries. Calvarium: The skeletal structures are osteopenic. No depressed calvarial fracture is identified. Soft tissues: There is left frontoparietal scalp contusion. Sinuses and mastoids: The visualized paranasal sinuses are clear. The mastoid air cells are well pneu matized. Orbits: The bony orbits are grossly intact. There are bilateral ocular lens implants. IMPRESSION: Senescent changes as above with no hemorrhage, mass effect, or evidence of acute territor ial ischemia by CT criteria. Electronically signed by: Jason Camacho M.D. 02/08/2019 9:30 PM
--- NOTE | 2019-02-08 21:39 | CT Scan Report ---
CT SCAN OF THE CERVICAL SPINE CLINICAL HISTORY: Fall. COMPARISON STUDY: CT scan of cervical spine dated 07/07/2017. CT of the neck dated 07/03/2017. TECHNIQUE: CT scan of the cervical spine is performed from the skull base to the upper thoracic spine . Images are reviewed in the axial, sagittal, and coronal planes. IV contrast was not administered fo r this examination. A dose lowering technique was utilized adhering to the principles of ALARA. FINDINGS: Skeletal structures: The skeletal structures are osteopenic. There is no evidence of fracture or subl uxation involving the cervical spine. Vertebral body height is maintained. There is minimal anterolis thesis at C3-C4. Alignment is otherwise preserved. Anterior osteophytes are seen throughout. The odon toid process and lateral masses are intact. The atlantoaxial articulation is preserved noting product pradip degenerative change. The spinous processes appear intact. Erosive arthropathy is seen involving t he right facet joint at C3-C4, which has significantly progressed from 07/07/2017. Intervertebral discs: There is mild multilevel degenerative disc space narrowing. Central canal: Grossly patent. Soft tissues: The prevertebral and paraspinous soft tissues are within normal limits. There is advanc ed atherosclerotic calcification of the carotid bulbs. There is a 1.1 cm ovoid nodule in the right pa rotid gland, similar appearance to the 07/03/[address] Calvarium: The visualized calvarium at the skull base appears intact. Brain parenchyma: Partially visualized brain parenchyma the skull base is within normal limits. Mastoids: The visualized right mastoid air cells are clear. Lung apices: Emphysematous change is noted at the apices. Apical lung parenchyma is otherwise clear a s visualized. IMPRESSION: 1. There is no evidence of fracture or subluxation involving the cervical spine. 2. Osteopenia and spondylotic change as above. 3. Erosive arthropathy involving the right facet joint at C3-C4 is new from previous. 4. Emphysema. 5. A right parotid nodule is unchanged from 2018. Electronically signed by: Jason Camacho M.D. 02/08/2019 9:38 PM
--- NOTE | 2019-02-08 22:06 | CT Scan Report ---
CT SCAN OF THE CHEST, ABDOMEN, AND PELVIS WITH IV CONTRAST CLINICAL HISTORY: Fall. COMPARISON STUDY: Chest CT dated 07/24/2014. TECHNIQUE: Following the IV administration of 94 of Optiray 320, CT scan of the chest, abdomen, and p dee was performed from the thoracic inlet to the proximal femora. Images are reviewed in the axial, sagittal, and coronal planes. IV contrast was administered without complication. A dose lowering t echnique was utilized adhering to the principles of ALARA. The examination is degraded by streak alfredo fact from the patient's arms which could not be elevated above the chest or abdomen. FINDINGS: CHEST: Thyroid: Imaged portions of the thyroid gland are normal in size and attenuation. Subcentimeter low-a ttenuation nodules are noted in the left lobe. Thoracic aorta: There is atherosclerotic calcification of the thoracic aorta, which is normal in apoorva carlyn and demonstrates bovine variant arch anatomy. No dissection is seen. Pulmonary vasculature: The pulmonary trunk is normal in caliber. There are no filling defects identif ied in the central pulmonary vessels to indicate pulmonary embolus. Note that this examination was no t protocoled for evaluation of the pulmonary arteries. Heart: The heart is top normal in size end there is trace pericardial effusion. The coronary arteries are densely calcified. Lungs and pleural spaces: Emphysema is change is noted. The trachea and central airways are clear. Th ere is no airspace consolidation, pleural effusion, or pneumothorax. Scarring/atelectasis is seen at both lung bases. There is a 10 mm spiculated nodule in the right lower lobe seen on image #231, new f rom 07/24/2014. There is a 5 mm right middle lobe nodule seen on image #178. This has minimally increa sed in size from 2015. 4 mm pleural-based nodules in the left lower lobe on image #127 and in the rig ht lower lobe on image #177 are unchanged from 2015 and of doubtful significance. Additional faint tr ee-in-bud opacities are present at both lung bases. Mediastinum: There is no mediastinal hematoma or lymphadenopathy. Dayan: Clear. Axillae: There is no axillary lymphadenopathy. Bony thorax: The skeletal structures are osteopenic. The bony thorax appears intact. Degenerative gopal nge and hyperkyphosis are noted throughout the thoracic spine. There are healed left lower rib fractu res seen anteriorly. No lytic or blastic lesions are identified. ABDOMEN AND PELVIS: Liver: The contrast-enhanced liver is normal in size, contour, and attenuation. There is no intrahepa tic or ductal dilatation. The hepatic veins and portal veins are patent. Gallbladder: There are calcified gallstones with no CT evidence of acute cholecystitis. Spleen: Normal in size and attenuation. Pancreas: Unremarkable. Adrenal glands: A 2.5 cm left adrenal adenoma is unchanged. The right adrenal gland is normal as imag ed. Kidneys: The contrast enhanced kidneys history cortical atrophy and are without hydronephrosis. The k idneys enhance symmetrically. A 1.3 cm cyst is noted in the interpolar right kidney. There is a 1.8 c m low-attenuation lesion in the left kidney seen on image #109 a 1.6 cm exophytic lesion arises from the lower pole of left kidney on image 151. These do not meet CT criteria for simple cysts. Abdominal vasculature: There is advanced atherosclerotic calcification and mild ectasia of the abdomi nal aorta. Bowel: There is rectal wall thickening with perirectal infiltration. Wall thickening and edema is als o seen throughout the colon with associated pericolic inflammation. No bowel obstruction is identifie d. The appendix is not visualized. Peritoneum: There is no intraperitoneal free air or abdominal ascites. Lymphadenopathy: None. Pelvic viscera: The prostate gland is enlarged and heterogeneous measuring 5.8 cm in transverse diame ter. There is median lobe hypertrophy. The bladder is distended. The bladder wall is thickened and tr abeculated and there are numerous small bladder diverticula. This indicates chronic outlet obstructio n. Skeletal structures: The skeletal structures are osteopenic. The lumbosacral spine, bony pelvis, and proximal femora appear intact. There is mild lumbosacral spondylosis. Degenerative change is noted in the hips and sacroiliac joints. No lytic or blastic lesions are seen. IMPRESSION: 1. There is no acute posttraumatic intrathoracic abnormality. 2. Emphysema. 3. There is no airspace consolidation, pleural effusion, or pneumothorax. 4. There is no evidence of solid organ injury in the abdomen or pelvis. 5. There is a 10 mm spiculated nodule in the right lower lobe, new from 2015. There are additional sm all foci of tree-in-bud nodularity present at the lung bases. Although this could potentially be on a n inflammatory basis the appearance is concerning for neoplasm. A 1-2 month follow-up chest CT is rec ommended for reassessment. If this fails to resolve then neoplasm becomes the diagnosis of exclusion. 6. A 5 mm right middle lobe pulmonary nodule has only minimally increased in size dating back to 2014 . This can also be reassessed at follow-up. 7. Findings are consistent with a nonspecific proctocolitis. Clinical correlation will be essential. 8. Cholelithiasis. 9. There are 2 indeterminate left renal lesions which do not meet CT criteria for simple cysts. Nonem ergent follow-up with a renal protocol MRI is recommended for further assessment. 10. Prostatomegaly with evidence of chronic bladder outlet obstruction. 11. Additional findings as above. Electronically signed by: Jason Camacho M.D. 02/08/2019 10:04 PM
[2019-02-08 22:11] LABS: Troponin I 0.019 ng/ml (0-0.045)
[2019-02-08 22:30] LABS: Appearance Urine Turbid (Clear); Bilirubin Urine Negative (Negative); Blood Urine Trace (Negative); Color Urine Yellow; Epithelial Cell Urine Auto 0-5 /lpf (0-5); Glucose Urine UA Negative (Negative); Ketones Urine Negative (Negative); Leukocyte Esterase Urine 1+ (Negative); Nitrite Urine Negative (Negative); Protein Urine Trace (Negative); RBC Urine Automated 0-4 /hpf (0-4); Specific Gravity Urine 1.017 (1.000-1.030); Urobilinogen Urine Negative (Negative); pH Urine 6.5 (4.5-7.5)
[2019-02-08 22:47] LABS: Bacteria Urine Automated 4+ (Negative)
[2019-02-08] MEDS ORDERED: cefTRIAXone SODIUM 2,000 MG/70 ML BAG IV STA (22:57)
[2019-02-08] MEDS ORDERED: PIPERACILL/TAZOBAC CONSULT ACTIVE PRN (23:40)
[2019-02-08] MEDS ORDERED: PIPERACILLIN/TAZOBACTAM 4.5 GM/120 ML BAG IV ONE (23:40)
--- NOTE | 2019-02-08 23:50 | History & Physical Report ---
Date of Service February 08, 2019 Assessment & Plan (1) Severe sepsis: SIRS plus ARF Secondary to complicated UTI hx Enterococcus, E. coli on previous urine cultures Gastroenteritis Incidental finding of pulmonary nodule on CT dementia, at baseline history CVA as per records schizoaffective disorder as per records hypertension, stable chronic upper lip hemangioma chronic anemia, hemoglobin at baseline past tobacco abuse. Medical telemetry Follow cultures, IV Zosyn for now given urine pathogen history Monitor creatinine response to IV fluids Appropriate to hold home PAMELLA inhibitor until creatinine at baseline Hold home laxatives for now Outpatient follow-up CT chest for SPN DVT prophylaxis Heparin subcu Full code Attempted to contact listed crewman armoured personnel carrier [id number], Ms. Radha Noble (niece/POA) thru [phone] for update on plan of care for patient. No answer. History of Present Illness Chief Complaint: Abdominal pain Primary Care Provider: [facility] History obtained from patient and records. Limited history patient secondary to dementia. Medical history significant for mood disorder, dementia, history CVA as per records, schizoaffective disorder as per records, hypertension, chronic upper lip hemangioma, chronic anemia (baseline hemoglobin 11-12), past tobacco abuse. Recent confinement last November 2018 for aspiration pneumonitis, E. coli UTI. Patient complaining of nonspecific abdominal pain to [facility] staff today. Diarrhea symptoms noted. Patient fell backwards upon trying to get up subsequently hitting his head. No account of syncope/LOC. At the ER, patient given IV ceftriaxone for UTI. MEDICAL HISTORY: As above. SURGERIES: cystoscopy and tonsillectomy. FAMILY HISTORY: Could not be reliably obtained PERSONAL AND SOCIAL HISTORY: He is a [facility] resident, past tobacco abuse. 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 Allergies Allergy/AdvReac Type Severity Reaction Status Date / Time olanzapine Allergy Mild "IT DOES Verified 11/22/18 11:18 NOT WORK" risperidone Allergy Unknown UNKNOWN Verified 11/22/18 11:18 Tricyclic Antidepressants Allergy Unknown . Uncoded 11/22/18 11:18 Flu Virus Vaccine AdvReac Unknown CAUSES Uncoded 11/22/18 11:18 PAIN AT INJECTION SITE Home Medications Home Medications Medication Instructions Recorded Confirmed Type Artificial Tears (PF) 1 drp OPB BID 11/22/18 02/08/19 History Bengay Greaseless 1 applic TOPICAL QID PRN 11/22/18 02/08/19 History Calmoseptine 1 applic TOPICAL DAILY 11/22/18 02/08/19 History Cepacol Sore Throat (anand-men) 1 sheila PO Q4H PRN 11/22/18 02/08/19 History Bing's wort 300 mg PO DAILY 11/22/18 02/08/19 History acetaminophen 650 mg PO Q4H PRN 11/22/18 02/08/19 History aspirin 81 mg PO DAILY 11/22/18 02/08/19 History benztropine 1 mg PO BID 11/22/18 02/08/19 History docusate sodium 100 mg PO BID 11/22/18 02/08/19 History fluphenazine HCl 2.5 mg PO Q6H PRN 11/22/18 02/08/19 History fluphenazine decanoate 25 mg IM MONTHLY 11/22/18 02/08/19 History lorazepam 0.5 mg PO TID PRN 11/22/18 02/08/19 History memantine 10 mg PO BID 11/22/18 02/08/19 History mirtazapine 30 mg PO HS 11/22/18 02/08/19 History multivitamin 1 tab PO DAILY 11/22/18 02/08/19 History perphenazine 8 mg PO TID 11/22/18 02/08/19 History polyethylene glycol 3350 17 g PO DAILY@1200 PRN 11/22/18 02/08/19 History simethicone 80 mg PO ACHS PRN 11/22/18 02/08/19 History amlodipine 5 mg PO DAILY 02/08/19 02/08/19 History calcium carbonate [Calcium Antacid] 500 mg PO Q4H PRN 02/08/19 02/08/19 History lisinopril 10 mg PO DAILY 02/08/19 02/08/19 History loperamide [Imodium A-D] 2 mg PO Q3H PRN 02/08/19 02/08/19 History Past Med/Surg History Medical History H/O: CVA (cerebrovascular accident) (Chronic) Schizoaffective disorder (Chronic) HTN (hypertension) (Chronic) Dementia (Chronic) Surgical History Hx of cataract surgery (Chronic) S/P tonsillectomy (Chronic) Family History Other Hypertension Social History Preferred Language: Malawian Communication Ability: Effective Clerical Stock Inspector Required: No Beliefs That Will Affect Care: None Current Living Situation: Personal Care Facility Current Living Situation Comment: [facility] Other Information That Helps Us Care for You: No Feels Safe at Home: Yes Safety Concerns: Feels Safe At This Time Smoking Status: Former smoker Hx Alcohol Use: No Hx Substance Use: No Review of Systems Review of Systems: Could not be reliably obtained Physical Exam Physical Exam: GENERAL: Slightly uncomfortable, demented, no respiratory distress SKIN: Pallor, warm HEENT: Pale palpebral conjunctivae, no ptosis, chronic right upper lip mass, dry buccal mucosa NECK : Supple, no tenderness CHEST : CTA, no tenderness HEART : Tachycardic, no obvious murmurs ABDOMEN: Some distention, central abdominal tenderness EXTREMITIES : No LE swelling/tenderness, no other conspicuous deformities noted NEUROLOGIC : Demented, old facial asymmetry, slightly hard of hearing, no other gross focality Results & Data Vital Signs (Past 12 Hours) Vital Signs Temp Pulse Pulse Resp BP BP Pulse Ox 02/08/19 23:00 97 02/08/19 22:30 97 02/08/19 22:18 98 H 18 117/64 98 02/08/19 22:17 117/64 98 02/08/19 22:00 98 02/08/19 21:56 94 02/08/19 20:30 89 28 H 02/08/19 20:00 82 19 96 02/08/19 19:49 36.6 C 84 20 105/56 L 97 02/08/19 19:47 92 H 20 97 02/08/19 19:39 84 19 105/56 L 96 Laboratory Results Laboratory Results WBC 19.24 K/uL (4.8-10.8) H 02/08/19 19:47 RBC 4.28 M/uL (4.7-6.1) L 02/08/19 19:47 Hgb 12.5 g/dL (14.0-18.0) L 02/08/19 19:47 Hct 37.8 % (42-52) L 02/08/19 19:47 MCV 88.3 fL (80-100) 02/08/19 19:47 MCH 29.2 pg (25-34) 02/08/19 19:47 MCHC 33.1 g/dL (32-36) 02/08/19 19:47 RDW Std Deviation 46.8 fL (36.4-46.3) H 02/08/19 19:47 RDW Coeff of So 14.4 % (11.5-14.5) 02/08/19 19:47 Plt Count 205 K/uL (130-400) 02/08/19 19:47 MPV 10.0 fL (7.4-10.4) 02/08/19 19:47 Immature Gran % (Auto) 0.4 % 02/08/19 19:47 Neut % (Auto) 84.6 % 02/08/19 19:47 Lymph % (Auto) 8.6 % 02/08/19 19:47 Frontier % (Auto) 4.9 % 02/08/19 19:47 Eos % (Auto) 1.2 % 02/08/19 19:47 Baso % (Auto) 0.3 % 02/08/19 19:47 Immature Gran # (Auto) 0.08 K/uL (0.00-0.02) H 02/08/19 19:47 Neut # (Auto) 16.26 K/uL (1.4-6.5) H 02/08/19 19:47 Lymph # (Auto) 1.66 K/uL (1.2-3.4) 02/08/19 19:47 Frontier # (Auto) 0.95 K/uL (0.11-0.59) H 02/08/19 19:47 Eos # (Auto) 0.24 K/uL (0-0.5) 02/08/19 19:47 Baso # (Auto) 0.05 K/uL (0-0.2) 02/08/19 19:47 PT 11.9 Seconds (9.0-12.0) 02/08/19 20:36 INR 1.2 (0.9-1.1) H 02/08/19 20:36 Sodium 135 mmol/L (136-145) L 02/08/19 19:47 Potassium 4.6 mmol/L (3.5-5.1) 02/08/19 20:36 Chloride 104 mmol/L (98-107) 02/08/19 19:47 Carbon Dioxide 24 mmol/L (21-32) 02/08/19 19:47 Anion Gap 7.0 (3-11) 02/08/19 19:47 BUN 17 mg/dl (7-18) 02/08/19 19:47 Creatinine 1.58 mg/dl (0.6-1.4) H 02/08/19 19:47 Est Cr Clr Drug Dosing 41.5 ml/min 02/08/19 19:47 Est GFR ( Amer) 47.8 02/08/19 19:47 Est GFR (Non-Af Amer) 41.3 02/08/19 19:47 BUN/Creatinine Ratio 10.8 (10-20) 02/08/19 19:47 Glucose 114 mg/dl (70-99) H 02/08/19 19:47 Lactate 1.5 mmol/L (0.4-2.0) 02/08/19 21:38 Calcium 9.2 mg/dl (8.5-10.1) 02/08/19 19:47 Total Bilirubin 0.4 mg/dl (0.2-1) 02/08/19 19:47 AST 13 U/L (15-37) L 02/08/19 20:36 ALT 13 U/L (12-78) 02/08/19 19:47 Alkaline Phosphatase 79 U/L (45-117) 02/08/19 19:47 Troponin I 0.019 ng/ml (0-0.045) 02/08/19 20:36 Troponin I Cancelled 02/08/19 20:36 Total Protein 6.6 gm/dl (6.4-8.2) 02/08/19 19:47 Albumin 3.0 gm/dl (3.4-5.0) L 02/08/19 19:47 Globulin 3.6 gm/dl (2.5-4.0) 02/08/19 19:47 Albumin/Globulin Ratio 0.8 (0.9-2) L 02/08/19 19:47 Urine Color Yellow 02/08/19 22:15 Urine Appearance Turbid (Clear) A 02/08/19 22:15 Urine pH 6.5 (4.5-7.5) 02/08/19 22:15 Ur Specific Franklin 1.017 (1.000-1.030) 02/08/19 22:15 Urine Protein Trace (Negative) H 02/08/19 22:15 Urine Glucose (UA) Negative (Negative) 02/08/19 22:15 Urine Ketones Negative (Negative) 02/08/19 22:15 Urine Blood Trace (Negative) H 02/08/19 22:15 Urine Nitrite Negative (Negative) 02/08/19 22:15 Urine Bilirubin Negative (Negative) 02/08/19 22:15 Urine Urobilinogen Negative (Negative) 02/08/19 22:15 Ur Leukocyte Esterase 1+ (Negative) H 02/08/19 22:15 Urine WBC (Auto) 10-30 /hpf (0-5) H 02/08/19 22:15 Urine RBC (Auto) 0-4 /hpf (0-4) 02/08/19 22:15 U Hyaline Cast (Auto) 5-10 /lpf (0-5) H 02/08/19 22:15 U Epithel Cells (Auto) 0-5 /lpf (0-5) 02/08/19 22:15 Urine Bacteria (Auto) 4+ (Negative) H 02/08/19 22:15 Urine Yeast Not Reportable 02/08/19 22:15 Stl C. diff Tox B Gene Negative Cdiff Gene (Neg) 02/08/19 21:[address] head: Senescent changes as above with no hemorrhage, mass effect, or evidence of acute territorial ischemia by CT criteria. CT cervical spine: 1. There is no evidence of fracture or subluxation involving the cervical spine. 2. Osteopenia and spondylotic change as above. 3. Erosive arthropathy involving the right facet joint at C3-C4 is new from previous. 4. Emphysema. 5. A right parotid nodule is unchanged from 2018. CT chest abdomen pelvis 1. There is no acute posttraumatic intrathoracic abnormality. 2. Emphysema. 3. There is no airspace consolidation, pleural effusion, or pneumothorax. 4. There is no evidence of solid organ injury in the abdomen or pelvis. 5. There is a 10 mm spiculated nodule in the right lower lobe, new from 2015. There are additional small foci of tree-in-bud nodularity present at the lung bases. Although this could potentially be on an inflammatory basis the appearance is concerning for neoplasm. A 1-2 month follow-up chest CT is recommended for reassessment. If this fails to resolve then neoplasm becomes the diagnosis of exclusion. 6. A 5 mm right middle lobe pulmonary nodule has only minimally increased in size dating back to 2014. This can also be reassessed at follow-up. 7. Findings are consistent with a nonspecific proctocolitis. Clinical correlation will be essential. 8. Cholelithiasis. 9. There are 2 indeterminate left renal lesions which do not meet CT criteria for simple cysts. Nonemergent follow-up with a renal protocol MRI is recommended for further assessment. 10. Prostatomegaly with evidence of chronic bladder outlet obstruction. 11. Additional findings as above. EKG as per my interpretation rate 85, NSR, LAD, LAFB, T wave flattening inferior leads, septal leads
[2019-02-08] MEDS ORDERED: PIPERACILLIN/TAZOBACTAM 4.5 GM/120ML D5W ONE (23:52)
[2019-02-08] MEDS ORDERED: LOPERAMIDE HCL 2 MG CAP PO STA (23:56)
[2019-02-09] MEDS ORDERED: TRAMADOL HCL 50 MG TABLET PO PRN (00:52)
[2019-02-09] MEDS ORDERED: HYDROmorphone INJ 0.5 MG/0.5 ML SYR IV PRN (00:52)
[2019-02-09] MEDS ORDERED: PROMETHAZINE HCL 12.5 MG in SODIUM CHLORIDE 0.9% 50 ML IV PRN (00:52)
[2019-02-09] MEDS ORDERED: HALOPERIDOL LACTATE 5 MG/ML 1 ML VIAL IM PRN (00:52)
[2019-02-09] MEDS ORDERED: LOPERAMIDE HCL 2 MG CAP PO PRN ×2 (00:52→13:23)
[2019-02-09] MEDS ORDERED: SODIUM CHLORIDE 0.9% 1000ML 1,000 ML IV ONE ×2 (00:52→16:00)
--- NOTE | 2019-02-09 00:57 | Emergency Department Note ---
Entered by Viktoriya Griffin acting as a scribe for Ean Kim M.D. History of Present Illness General Chief complaint: Abdominal Pain Stated complaint: FALL, AB PAIN Time Seen by Provider: 02/08/19 19:44 Source: patient Limitations: no limitations History of Present Illness Onset (ago): hour(s) (a few) Location: head Pain Consistency: + other (episode) Quality: + other (fall) Associated symptoms: + headaches and + other (nausea/vomiting, dizziness, SOB, CP, LOC, and extremity pain) The patient is a 78 year old male who presents to the Emergency Room with complaints of an episode of a fall that occurred a few hours ago. He states that he "lost his strength" when attempting to get out of bed. The patient reports that he fell on his back and hit his head, noting that he has a mild headache. He complains of pain in the lower abdomen. The patient complains of right-sided neck pain. He denies any nausea/vomiting, dizziness, SOB, CP, LOC, and extremity pain. The patient notes that he takes a low dose Aspirin daily. Home Medications Home Medications Medication Instructions Recorded Confirmed Type Artificial Tears (PF) 1 drp OPB BID 11/22/18 02/08/19 History Bengay Greaseless 1 applic TOPICAL QID PRN 11/22/18 02/08/19 History Calmoseptine 1 applic TOPICAL DAILY 11/22/18 02/08/19 History Cepacol Sore Throat (anand-men) 1 sheila PO Q4H PRN 11/22/18 02/08/19 History [place]'s wort 300 mg PO DAILY 11/22/18 02/08/19 History acetaminophen 650 mg PO Q4H PRN 11/22/18 02/08/19 History aspirin 81 mg PO DAILY 11/22/18 02/08/19 History benztropine 1 mg PO BID 11/22/18 02/08/19 History docusate sodium 100 mg PO BID 11/22/18 02/08/19 History fluphenazine HCl 2.5 mg PO Q6H PRN 11/22/18 02/08/19 History fluphenazine decanoate 25 mg IM MONTHLY 11/22/18 02/08/19 History lorazepam 0.5 mg PO TID PRN 11/22/18 02/08/19 History memantine 10 mg PO BID 11/22/18 02/08/19 History mirtazapine 30 mg PO HS 11/22/18 02/08/19 History multivitamin 1 tab PO DAILY 11/22/18 02/08/19 History perphenazine 8 mg PO TID 11/22/18 02/08/19 History polyethylene glycol 3350 17 g PO DAILY@1200 PRN 11/22/18 02/08/19 History simethicone 80 mg PO ACHS PRN 11/22/18 02/08/19 History amlodipine 5 mg PO DAILY 02/08/19 02/08/19 History calcium carbonate [Calcium Antacid] 500 mg PO Q4H PRN 02/08/19 02/08/19 History lisinopril 10 mg PO DAILY 02/08/19 02/08/19 History loperamide [Imodium A-D] 2 mg PO Q3H PRN 02/08/19 02/08/19 History Allergies Allergy/AdvReac Type Severity Reaction Status Date / Time olanzapine Allergy Mild "IT DOES Verified 11/22/18 11:18 NOT WORK" risperidone Allergy Unknown UNKNOWN Verified 11/22/18 11:18 Tricyclic Antidepressants Allergy Unknown . Uncoded 11/22/18 11:18 Flu Virus Vaccine AdvReac Unknown CAUSES Uncoded 11/22/18 11:18 PAIN AT INJECTION SITE Past Med/Surg History Medical History H/O: CVA (cerebrovascular accident) (Chronic) Schizoaffective disorder (Chronic) HTN (hypertension) (Chronic) Dementia (Chronic) Surgical History Hx of cataract surgery (Chronic) S/P tonsillectomy (Chronic) Family History Other Hypertension Social History Preferred Language: Frisian Communication Ability: Impaired Beliefs That Will Affect Care: None Current Living Situation: Personal Care Facility Current Living Situation Comment: [facility] Feels Safe at Home: Yes Smoking Status: Unknown if ever smoked Hx Alcohol Use: No (quit 11 years ago ) Hx Substance Use: No Review of Systems See HPI for pertinent positives & negatives. and A total of 10 systems reviewed and were otherwise negative Physical Exam Vital Signs Vital Signs - 24 hr 02/08/19 19:39 02/08/19 19:47 02/08/19 19:49 Temperature 36.6 C Temperature Source Oral Sepsis Recent Fever Within 48 Hours No Sepsis Action Taken by Nursing No Action Required Pulse Rate 84 92 H 84 Pulse Rate [Right Finger] Pulse Rate from SpO2 Sensor 84 92 H Pulse Rhythm Regular Pulse Strength Normal Respiratory Rate 19 20 20 Respiratory Effort / Characteristics Non-Labored Respiratory Depth Normal Respiratory Pattern Regular Blood Pressure 105/56 L 105/56 L Blood Pressure [Right Arm] Blood Pressure Mean 72 72 Blood Pressure Mean [Right Arm] Blood Pressure Position Lying Pulse Oximetry 96 97 97 Oxygen Delivery Method Room Air 02/08/19 20:00 02/08/19 20:30 02/08/19 21:56 Temperature Temperature Source Sepsis Recent Fever Within 48 Hours Sepsis Action Taken by Nursing Pulse Rate 82 89 Pulse Rate [Right Finger] Pulse Rate from SpO2 Sensor 82 92 H Pulse Rhythm Pulse Strength Respiratory Rate 19 28 H Respiratory Effort / Characteristics Respiratory Depth Respiratory Pattern Blood Pressure Blood Pressure [Right Arm] Blood Pressure Mean Blood Pressure Mean [Right Arm] Blood Pressure Position Pulse Oximetry 96 94 Oxygen Delivery Method 02/08/19 22:00 02/08/19 22:17 02/08/19 22:18 Temperature Temperature Source Sepsis Recent Fever Within 48 Hours Sepsis Action Taken by Nursing Pulse Rate Pulse Rate [Right Finger] 98 H Pulse Rate from SpO2 Sensor 99 H 98 H Pulse Rhythm Pulse Strength Respiratory Rate 18 Respiratory Effort / Characteristics Respiratory Depth Respiratory Pattern Blood Pressure 117/64 Blood Pressure [Right Arm] 117/64 Blood Pressure Mean 81 Blood Pressure Mean [Right Arm] 81 Blood Pressure Position Pulse Oximetry 98 98 98 Oxygen Delivery Method 02/08/19 22:30 02/08/19 23:00 Temperature Temperature Source Sepsis Recent Fever Within 48 Hours Sepsis Action Taken by Nursing Pulse Rate Pulse Rate [Right Finger] Pulse Rate from SpO2 Sensor 101 H 99 H Pulse Rhythm Pulse Strength Respiratory Rate Respiratory Effort / Characteristics Respiratory Depth Respiratory Pattern Blood Pressure Blood Pressure [Right Arm] Blood Pressure Mean Blood Pressure Mean [Right Arm] Blood Pressure Position Pulse Oximetry 97 97 Oxygen Delivery Method GENERAL: Awake, alert, and oriented to person and events, well-appearing, in no distress, no slurred speech HENT: Normocephalic, atraumatic. Oropharynx unremarkable. Right upper lip nodule. EYES: Normal conjunctiva. Sclera non-icteric. NECK: Supple. No nuchal rigidity. RESPIRATORY: Clear to auscultation. No wheezes. Normal respiratory effort. CARDIAC: Normal rate. Normal rhythm. Extremities warm and well perfused. GI: Soft, non-distended. Minimal lower abdominal tenderness. No rebound or guarding. No masses. RECTAL: Deferred. MUSCULOSKELETAL: Atraumatic. Chest examination reveals no tenderness. There is no CVA tenderness to palpation. LOWER EXTREMITIES: Calves are equal size bilaterally and non-tender. No edema NEURO: Normal sensorium. No sensory or motor deficits noted. No facial droop. SKIN: Warm and dry. No rash or jaundice noted. Course 1950: The patient was evaluated in room C10. A complete history and physical exam was performed. 2153: I reevaluated the patient, and he was stable. 0: I spoke with Dr. Wily Carmona, [facility] hospitalist, about the patients case. He will further evaluate the patient. Administered Medications Discontinued Medications Sodium Chloride (Nss 1000ml) 1,000 mls @ 999 mls/hr IV .Q1H1M ONE Stop: 02/08/19 22:08 Last Infusion: 02/08/19 22:40 Dose: 0 mls/hr Documented by: [id number] Admin: 02/08/19 21:38 Dose: 999 mls/hr Documented by: [id number] Ceftriaxone Sodium (Rocephin) 2,000 mg in 70 mls @ 140 mls/hr IV NOW STA Stop: 02/08/19 23:26 Last Infusion: 02/08/19 23:31 Dose: 0 mls/hr Documented by: [id number] Admin: 02/08/19 23:09 Dose: 140 mls/hr Documented by: [id number] Ioversol (Optiray 320 100ml) 94 ml IV ONCE PRN PRN Reason: Interaction Checking Stop: 02/12/19 21:19 Last Admin: 02/08/19 21:20 Dose: 94 ml Documented by: [id number] Piperacillin Sod/Tazobactam Sod (Zosyn) Confirm Administered Dose 4.5 gm .ROUTE .STK-MED ONE Stop: 02/08/19 23:53 Last Admin: 02/08/19 23:58 Dose: 4.5 gm Documented by: [id number] Medical Decision Making Differential Diagnosis Etiologies such as fracture, cervical/vertebral injury, dislocation, intra- abdominal process, pneumothorax, intrathoracic trauma, intracranial injury, soft tissue injury, neurologic process, as well as other traumatic pathologies were entertained. Medical Records Attestation: I reviewed the patient's medical records. Home Medications Current Medication List: was personally reviewed by me Laboratory Data Attestation: I reviewed the patient's lab results. Result diagrams: 02/08/19 19:47 02/08/19 20:36 Lab Results 02/08/19 02/08/19 02/08/19 Range/Units 19:47 19:47 19:47 WBC 19.24 H (4.8-10.8) K/uL RBC 4.28 L (4.7-6.1) M/uL Hgb 12.5 L (14.0-18.0) g/dL Hct 37.8 L (42-52) % MCV 88.3 (80-100) fL MCH 29.2 (25-34) pg MCHC 33.1 (32-36) g/dL RDW Std Deviation 46.8 H (36.4-46.3) fL RDW Coeff of So 14.4 (11.5-14.5) % Plt Count 205 (130-400) K/uL MPV 10.0 (7.4-10.4) fL Immature Gran % (Auto) 0.4 % Neut % (Auto) 84.6 % Lymph % (Auto) 8.6 % [place] % (Auto) 4.9 % Eos % (Auto) 1.2 % Baso % (Auto) 0.3 % Immature Gran # (Auto) 0.08 H (0.00-0.02) K/uL Neut # (Auto) 16.26 H (1.4-6.5) K/uL Lymph # (Auto) 1.66 (1.2-3.4) K/uL [place] # (Auto) 0.95 H (0.11-0.59) K/uL Eos # (Auto) 0.24 (0-0.5) K/uL Baso # (Auto) 0.05 (0-0.2) K/uL PT Cancelled INR Cancelled Sodium 135 L (136-145) mmol/L Potassium (3.5-5.1) mmol/L Chloride 104 (98-107) mmol/L Carbon Dioxide 24 (21-32) mmol/L Anion Gap 7.0 (3-11) BUN 17 (7-18) mg/dl Creatinine 1.58 H (0.6-1.4) mg/dl Est Cr Clr Drug Dosing 41.5 ml/min Est GFR ( Amer) 47.8 Est GFR (Non-Af Amer) 41.3 BUN/Creatinine Ratio 10.8 (10-20) Glucose 114 H (70-99) mg/dl Lactate (0.4-2.0) mmol/L Calcium 9.2 (8.5-10.1) mg/dl Magnesium (1.8-2.4) mg/dl Total Bilirubin 0.4 (0.2-1) mg/dl AST (15-37) U/L ALT 13 (12-78) U/L Alkaline Phosphatase 79 (45-117) U/L Troponin I (0-0.045) ng/ml Total Protein 6.6 (6.4-8.2) gm/dl Albumin 3.0 L (3.4-5.0) gm/dl Globulin 3.6 (2.5-4.0) gm/dl Albumin/Globulin Ratio 0.8 L (0.9-2) Urine Color Urine Appearance (Clear) Urine pH (4.5-7.5) Ur Specific [place] (1.000-1.030) Urine Protein (Negative) Urine Glucose (UA) (Negative) Urine Ketones (Negative) Urine Blood (Negative) Urine Nitrite (Negative) Urine Bilirubin (Negative) Urine Urobilinogen (Negative) Ur Leukocyte Esterase (Negative) Urine WBC (Auto) (0-5) /hpf Urine RBC (Auto) (0-4) /hpf U Hyaline Cast (Auto) (0-5) /lpf U Epithel Cells (Auto) (0-5) /lpf Urine Bacteria (Auto) (Negative) Urine Yeast Stl C. diff Tox B Gene (Neg) 02/08/19 02/08/19 02/08/19 Range/Units 20:36 20:36 20:36 WBC (4.8-10.8) K/uL RBC (4.7-6.1) M/uL Hgb (14.0-18.0) g/dL Hct (42-52) % MCV (80-100) fL MCH (25-34) pg MCHC (32-36) g/dL RDW Std Deviation (36.4-46.3) fL RDW Coeff of So (11.5-14.5) % Plt Count (130-400) K/uL MPV (7.4-10.4) fL Immature Gran % (Auto) % Neut % (Auto) % Lymph % (Auto) % [place] % (Auto) % Eos % (Auto) % Baso % (Auto) % Immature Gran # (Auto) (0.00-0.02) K/uL Neut # (Auto) (1.4-6.5) K/uL Lymph # (Auto) (1.2-3.4) K/uL [place] # (Auto) (0.11-0.59) K/uL Eos # (Auto) (0-0.5) K/uL Baso # (Auto) (0-0.2) K/uL PT 11.9 INR 1.2 H Sodium (136-145) mmol/L Potassium 4.6 (3.5-5.1) mmol/L Chloride (98-107) mmol/L Carbon Dioxide (21-32) mmol/L Anion Gap (3-11) BUN (7-18) mg/dl Creatinine (0.6-1.4) mg/dl Est Cr Clr Drug Dosing ml/min Est GFR ( Amer) Est GFR (Non-Af Amer) BUN/Creatinine Ratio (10-20) Glucose (70-99) mg/dl Lactate (0.4-2.0) mmol/L Calcium (8.5-10.1) mg/dl Magnesium (1.8-2.4) mg/dl Total Bilirubin (0.2-1) mg/dl AST 13 L (15-37) U/L ALT (12-78) U/L Alkaline Phosphatase (45-117) U/L Troponin I 0.019 Cancelled (0-0.045) ng/ml Total Protein (6.4-8.2) gm/dl Albumin (3.4-5.0) gm/dl Globulin (2.5-4.0) gm/dl Albumin/Globulin Ratio (0.9-2) Urine Color Urine Appearance (Clear) Urine pH (4.5-7.5) Ur Specific [place] (1.000-1.030) Urine Protein (Negative) Urine Glucose (UA) (Negative) Urine Ketones (Negative) Urine Blood (Negative) Urine Nitrite (Negative) Urine Bilirubin (Negative) Urine Urobilinogen (Negative) Ur Leukocyte Esterase (Negative) Urine WBC (Auto) (0-5) /hpf Urine RBC (Auto) (0-4) /hpf U Hyaline Cast (Auto) (0-5) /lpf U Epithel Cells (Auto) (0-5) /lpf Urine Bacteria (Auto) (Negative) Urine Yeast Stl C. diff Tox B Gene (Neg) 02/08/19 02/08/19 02/08/19 Range/Units 20:36 21:11 21:38 WBC (4.8-10.8) K/uL RBC (4.7-6.1) M/uL Hgb (14.0-18.0) g/dL Hct (42-52) % MCV (80-100) fL MCH (25-34) pg MCHC (32-36) g/dL RDW Std Deviation (36.4-46.3) fL RDW Coeff of So (11.5-14.5) % Plt Count (130-400) K/uL MPV (7.4-10.4) fL Immature Gran % (Auto) % Neut % (Auto) % Lymph % (Auto) % [place] % (Auto) % Eos % (Auto) % Baso % (Auto) % Immature Gran # (Auto) (0.00-0.02) K/uL Neut # (Auto) (1.4-6.5) K/uL Lymph # (Auto) (1.2-3.4) K/uL [place] # (Auto) (0.11-0.59) K/uL Eos # (Auto) (0-0.5) K/uL Baso # (Auto) (0-0.2) K/uL PT INR Sodium (136-145) mmol/L Potassium (3.5-5.1) mmol/L Chloride (98-107) mmol/L Carbon Dioxide (21-32) mmol/L Anion Gap (3-11) BUN (7-18) mg/dl Creatinine (0.6-1.4) mg/dl Est Cr Clr Drug Dosing ml/min Est GFR ( Amer) Est GFR (Non-Af Amer) BUN/Creatinine Ratio (10-20) Glucose (70-99) mg/dl Lactate 1.5 (0.4-2.0) mmol/L Calcium (8.5-10.1) mg/dl Magnesium 2.2 (1.8-2.4) mg/dl Total Bilirubin (0.2-1) mg/dl AST (15-37) U/L ALT (12-78) U/L Alkaline Phosphatase (45-117) U/L Troponin I (0-0.045) ng/ml Total Protein (6.4-8.2) gm/dl Albumin (3.4-5.0) gm/dl Globulin (2.5-4.0) gm/dl Albumin/Globulin Ratio (0.9-2) Urine Color Urine Appearance (Clear) Urine pH (4.5-7.5) Ur Specific [place] (1.000-1.030) Urine Protein (Negative) Urine Glucose (UA) (Negative) Urine Ketones (Negative) Urine Blood (Negative) Urine Nitrite (Negative) Urine Bilirubin (Negative) Urine Urobilinogen (Negative) Ur Leukocyte Esterase (Negative) Urine WBC (Auto) (0-5) /hpf Urine RBC (Auto) (0-4) /hpf U Hyaline Cast (Auto) (0-5) /lpf U Epithel Cells (Auto) (0-5) /lpf Urine Bacteria (Auto) (Negative) Urine Yeast Stl C. diff Tox B Gene Negative Cdiff Gene (Neg) 02/08/19 Range/Units 22:15 WBC (4.8-10.8) K/uL RBC (4.7-6.1) M/uL Hgb (14.0-18.0) g/dL Hct (42-52) % MCV (80-100) fL MCH (25-34) pg MCHC (32-36) g/dL RDW Std Deviation (36.4-46.3) fL RDW Coeff of So (11.5-14.5) % Plt Count (130-400) K/uL MPV (7.4-10.4) fL Immature Gran % (Auto) % Neut % (Auto) % Lymph % (Auto) % [place] % (Auto) % Eos % (Auto) % Baso % (Auto) % Immature Gran # (Auto) (0.00-0.02) K/uL Neut # (Auto) (1.4-6.5) K/uL Lymph # (Auto) (1.2-3.4) K/uL [place] # (Auto) (0.11-0.59) K/uL Eos # (Auto) (0-0.5) K/uL Baso # (Auto) (0-0.2) K/uL PT INR Sodium (136-145) mmol/L Potassium (3.5-5.1) mmol/L Chloride (98-107) mmol/L Carbon Dioxide (21-32) mmol/L Anion Gap (3-11) BUN (7-18) mg/dl Creatinine (0.6-1.4) mg/dl Est Cr Clr Drug Dosing ml/min Est GFR ( Amer) Est GFR (Non-Af Amer) BUN/Creatinine Ratio (10-20) Glucose (70-99) mg/dl Lactate (0.4-2.0) mmol/L Calcium (8.5-10.1) mg/dl Magnesium (1.8-2.4) mg/dl Total Bilirubin (0.2-1) mg/dl AST (15-37) U/L ALT (12-78) U/L Alkaline Phosphatase (45-117) U/L Troponin I (0-0.045) ng/ml Total Protein (6.4-8.2) gm/dl Albumin (3.4-5.0) gm/dl Globulin (2.5-4.0) gm/dl Albumin/Globulin Ratio (0.9-2) Urine Color Yellow Urine Appearance Turbid A (Clear) Urine pH 6.5 (4.5-7.5) Ur Specific [place] 1.017 (1.000-1.030) Urine Protein Trace H (Negative) Urine Glucose (UA) Negative (Negative) Urine Ketones Negative (Negative) Urine Blood Trace H (Negative) Urine Nitrite Negative (Negative) Urine Bilirubin Negative (Negative) Urine Urobilinogen Negative (Negative) Ur Leukocyte Esterase 1+ H (Negative) Urine WBC (Auto) 10-30 H (0-5) /hpf Urine RBC (Auto) 0-4 (0-4) /hpf U Hyaline Cast (Auto) 5-10 H (0-5) /lpf U Epithel Cells (Auto) 0-5 (0-5) /lpf Urine Bacteria (Auto) 4+ H (Negative) Urine Yeast Not Reportable Stl C. diff Tox B Gene (Neg) Imaging Data Radiologist's Impression: Radiology results as stated below per my review and the radiologist's interpretation: CT SCAN OF THE CHEST, ABDOMEN, AND PELVIS WITH IV CONTRAST CLINICAL HISTORY: Fall. COMPARISON STUDY: Chest CT dated 07/24/2014. TECHNIQUE: Following the IV administration of 94 of Optiray 320, CT scan of the chest, abdomen, and pelvis was performed from the thoracic inlet to the proximal femora. Images are reviewed in the axial, sagittal, and coronal planes. IV con trast was administered without complication. A dose lowering technique was utilized adhering to the principles of ALARA. The examination is degraded by streak artifact from the patient's arms which could not be elevated above the chest or abdomen. FINDINGS: CHEST: Thyroid: Imaged portions of the thyroid gland are normal in size and attenuation. Subcentimeter low-attenuation nodules are noted in the left lobe. Thoracic aorta: There is atherosclerotic calcification of the thoracic aorta, which is normal in caliber and demonstrates bovine variant arch anatomy. No dissection is seen. Pulmonary vasculature: The pulmonary trunk is normal in caliber. There are no filling defects identified in the central pulmonary vessels to indicate pulmonary embolus. Note that this examination was not protocoled for evaluation of the pulmonary arteries. Heart: The heart is top normal in size end there is trace pericardial effusion. The coronary arteries are densely calcified. Lungs and pleural spaces: Emphysema is change is noted. The trachea and central airways are clear. There is no airspace consolidation, pleural effusion, or pneumothorax. Scarring/atelectasis is seen at both lung bases. There is a 10 mm spiculated nodule in the right lower lobe seen on image #231, new from 07/24/2014. There is a 5 mm right middle lobe nodule seen on image #178. This has minimally increased in size from 2015. 4 mm pleural-based nodules in the left lower lobe on image #127 and in the right lower lobe on image #177 are unchanged from 2015 and of doubtful significance. Additional faint tree-in-bud opacities are present at both lung bases. Mediastinum: There is no mediastinal hematoma or lymphadenopathy. [place]: Clear. Axillae: There is no axillary lymphadenopathy. Bony thorax: The skeletal structures are osteopenic. The bony thorax appears intact. Degenerative change and hyperkyphosis are noted throughout the thoracic spine. There are healed left lower rib fractures seen anteriorly. No lytic or blastic lesions are identified. ABDOMEN AND PELVIS: Liver: The contrast-enhanced liver is normal in size, contour, and attenuation. There is no intrahepatic or ductal dilatation. The hepatic veins and portal veins are patent. Gallbladder: There are calcified gallstones with no CT evidence of acute cholecystitis. Spleen: Normal in size and attenuation. Pancreas: Unremarkable. Adrenal glands: A 2.5 cm left adrenal adenoma is unchanged. The right adrenal gland is normal as imaged. Kidneys: The contrast enhanced kidneys history cortical atrophy and are without hydronephrosis. The kidneys enhance symmetrically. A 1.3 cm cyst is noted in the interpolar right kidney. There is a 1.8 cm low-attenuation lesion in the left kidney seen on image #109 a 1.6 cm exophytic lesion arises from the lower pole of left kidney on image 151. These do not meet CT criteria for simple cysts. Abdominal vasculature: There is advanced atherosclerotic calcification and mild ectasia of the abdominal aorta. Bowel: There is rectal wall thickening with perirectal infiltration. Wall thickening and edema is also seen throughout the colon with associated pericolic inflammation. No bowel obstruction is identified. The appendix is not visualized. Peritoneum: There is no intraperitoneal free air or abdominal ascites. Lymphadenopathy: None. Pelvic viscera: The prostate gland is enlarged and heterogeneous measuring 5.8 cm in transverse diameter. There is median lobe hypertrophy. The bladder is distended. The bladder wall is thickened and trabeculated and there are numerous small bladder diverticula. This indicates chronic outlet obstruction. Skeletal structures: The skeletal structures are osteopenic. The lumbosacral spine, bony pelvis, and proximal femora appear intact. There is mild lumbosacral spondylosis. Degenerative change is noted in the hips and sacroiliac joints. No lytic or blastic lesions are seen. IMPRESSION: 1. There is no acute posttraumatic intrathoracic abnormality. 2. Emphysema. 3. There is no airspace consolidation, pleural effusion, or pneumothorax. 4. There is no evidence of solid organ injury in the abdomen or pelvis. 5. There is a 10 mm spiculated nodule in the right lower lobe, new from 2015. There are additional small foci of tree-in-bud nodularity present at the lung bases. Although this could potentially be on an inflammatory basis the appearance is concerning for neoplasm. A 1-2 month follow-up chest CT is recommended for reassessment. If this fails to resolve then neoplasm becomes the diagnosis of exclusion. 6. A 5 mm right middle lobe pulmonary nodule has only minimally increased in size dating back to 2014. This can also be reassessed at follow-up. 7. Findings are consistent with a nonspecific proctocolitis. Clinical correlation will be essential. 8. Cholelithiasis. 9. There are 2 indeterminate left renal lesions which do not meet CT criteria for simple cysts. Nonemergent follow-up with a renal protocol MRI is recommended for further assessment. 10. Prostatomegaly with evidence of chronic bladder outlet obstruction. 11. Additional findings as above. Electronically signed by: Jason Camacho M.D. 02/08/2019 10:[address] SCAN OF THE CERVICAL SPINE CLINICAL HISTORY: Fall. COMPARISON STUDY: CT scan of cervical spine dated 07/07/2017. CT of the neck dated 07/03/2017. TECHNIQUE: CT scan of the cervical spine is performed from the skull base to the upper thoracic spine. Images are reviewed in the axial, sagittal, and coronal planes. IV contrast was not administered for this examination. A dose lowering technique was utilized adhering to the principles of ALARA. FINDINGS: Skeletal structures: The skeletal structures are osteopenic. There is no evidence of fracture or subluxation involving the cervical spine. Vertebral body height is maintained. There is minimal anterolisthesis at C3-C4. Alignment is otherwise preserved. Anterior osteophytes are seen throughout. The odontoid process and lateral masses are intact. The atlantoaxial articulation is preserved noting productive degenerative change. The spinous processes appear intact. Erosive arthropathy is seen involving the right facet joint at C3-C4, which has significantly progressed from 07/07/2017. Intervertebral discs: There is mild multilevel degenerative disc space narrowing. Central canal: Grossly patent. Soft tissues: The prevertebral and paraspinous soft tissues are within normal limits. There is advanced atherosclerotic calcification of the carotid bulbs. There is a 1.1 cm ovoid nodule in the right parotid gland, similar appearance to the 07/03/[address] Calvarium: The visualized calvarium at the skull base appears intact. Brain parenchyma: Partially visualized brain parenchyma the skull base is within normal limits. Mastoids: The visualized right mastoid air cells are clear. Lung apices: Emphysematous change is noted at the apices. Apical lung parenchyma is otherwise clear as visualized. IMPRESSION: 1. There is no evidence of fracture or subluxation involving the cervical spine. 2. Osteopenia and spondylotic change as above. 3. Erosive arthropathy involving the right facet joint at C3-C4 is new from previous. 4. Emphysema. 5. A right parotid nodule is unchanged from 2018. Electronically signed by: Jason Camacho M.D. 02/08/2019 9:[address] SCAN OF THE BRAIN WITHOUT IV CONTRAST CLINICAL HISTORY: Fall. COMPARISON STUDY: CT of the brain dated 11/22/2018. TECHNIQUE: Unenhanced axial CT scan of the brain is performed from the vertex to the skull base. A dose lowering technique was utilized adhering to the principles of ALARA. CT DOSE: 1836.97 mGy.cm FINDINGS: Brain parenchyma: There are age-related involutional changes noting moderate subcortical and periventricular microangiopathic change. There is no hemorrhage, mass effect, or evidence of acute territorial ischemia by CT criteria. There is a chronic lacunar infarct in the left thalamus. [place]-white matter differentiation is preserved. No extra-axial fluid collection is seen. Ventricles, sulci, cisterns: Prominent secondary to involutional change. Intracranial vasculature: There is atherosclerotic calcification of the cavernous carotid and vertebral arteries. Calvarium: The skeletal structures are osteopenic. No depressed calvarial fracture is identified. Soft tissues: There is left frontoparietal scalp contusion. Sinuses and mastoids: The visualized paranasal sinuses are clear. The mastoid air cells are well pneumatized. Orbits: The bony orbits are grossly intact. There are bilateral ocular lens implants. IMPRESSION: Senescent changes as above with no hemorrhage, mass effect, or evidence of acute territorial ischemia by CT criteria. Electronically signed by: Jason Camacho M.D. 02/08/2019 9:30 PM ECG Data Attestation: I personally reviewed and interpreted this ECG as follows: Indication: + abdominal pain Rate (beats per minute): 83 Rhythm: + normal sinus ECG Findings: + Other (no ectopy, no ST elevation, left axis, normal intervals) Comparison ECG Date: from (01/22/19) Change: no significant change Blood Pressure Blood Pressure Findings: Normal blood pressure Blood Pressure Disposition: further management by hospitalist Head Trauma GCS Score: 15 MDM Narrative Patient is a 78-year-old gentleman with a past medical history including pneumonia, CVA, schizoaffective disorder, hypertension, and dementia presenting today after a fall complaining of abdominal pain. Patient states that his balance is the best he was try to get out of bed he fell onto his back and did strike his head. States some slight headache. Denies dizziness or chest pain or shortness of breath. Endorsing some right lower quadrant pain. Having some loose stools here. No nausea or vomiting reported. Denies injury to the extremities. CT the head cervical spine chest abdomen pelvis were completed. Again no significant stigmata of trauma on exam. Very mild right lower quadrant abdominal tenderness but the patient also states he has to urinate. Basic labs were obtained. Stool sample was sent for C. difficile. Urinalysis was ordered. Patient's laboratory studies concerning only show a significant leukocytosis today of 19.2. Kidney function also somewhat worse than baseline. No evidence of hepatitis. Given a fluid bolus lactate and blood cultures obtained. Lactate not elevated. CT the head and neck without acute traumatic injuries. CT of the chest abdomen pelvis shows no evidence of airspace consolidation. Has noted pulmonary nodule is noted in the right lung several other nodules. Nonspecific proctocolitis is noted. Urinalysis appears positive and a history of E. coli UTI. Given this given a dose of ceftriaxone here. With his history of some dementia the diarrhea/colitis UTI and leukocytosis failed observation of here in the hospital would be prudent tonight. Again doubt that he is septic at this time given the normal lactate and other vitals. C. difficile was negative. Discussed with the hospitalist for admission. Impression & Plan Acute UTI, Acute kidney injury, Colitis, Fall Discharge Plan Visit Data *Final* Discharge Date/Time: 02/09/19 00:25 Chief Complaint: Abdominal Pain Stated Complaint: FALL, AB PAIN ED Provider: Ean Kim Discharge Problem: Acute UTI, Acute kidney injury, Colitis, Fall Patient Disposition: Admitted As Inpatient Discharge Instructions Interventions: ED Discharge Assessment Last Done: 02/09/19 00:25 Discharge Problem: Fall Qualifiers: Encounter type: initial encounter Qualified Code(s): W19.XXXA - Unspecified fall, initial encounter The scribe's documentation has been prepared under my direction and personally reviewed by me in its entirety. I confirm that the note above accurately reflects all work, treatment, procedures, and medical decision making performed by me.
[2019-02-09] MEDS: ACETAMINOPHEN 325 MG TAB PO PRN (04:00)
[2019-02-09] MEDS: PIPERACILLIN/TAZOBACTAM 3.375 GM in DEXTROSE 5% 100 ML IV SCH ×3 (05:58→21:41)
[2019-02-09] MEDS: HEPARIN SOD 5,000 UNIT/0.5 ML VIAL SQ SCH ×3 (06:00→21:42)
[2019-02-09 07:24] LABS: Basophils # (auto) 0.04 K/uL (0-0.2); Basophils % (auto) 0.2 %; Eosinophils # (auto) 0.15 K/uL (0-0.5); Eosinophils % (auto) 0.8 %; Hematocrit (blood only) 31.1 % (42-52); Hemoglobin 10.4 g/dL (14.0-18.0); Immature Granulocytes # (auto) 0.07 K/uL (0.00-0.02); Immature Granulocytes % (auto) 0.4 %; Lymphocytes # (auto) 1.87 K/uL (1.2-3.4); Lymphocytes % (auto) 9.6 %; Mean Corpuscular Hemoglobin 29.5 pg (25-34); Mean Corpuscular Hgb Conc 33.4 g/dL (32-36); Mean Corpuscular Volume 88.4 fL (80-100); Mean Platelet Volume 8.9 fL (7.4-10.4); Monocytes # (auto) 1.71 K/uL (0.11-0.59); Monocytes % (auto) 8.8 %; Neutrophils % (auto) 80.2 %; Platelet Count 244 K/uL (130-400); RDW Coefficient of Variation 14.6 % (11.5-14.5); RDW Standard Deviation 47.2 fL (36.4-46.3); Red Blood Count 3.52 M/uL (4.7-6.1); White Blood Count 19.54 K/uL (4.8-10.8)
[2019-02-09 07:56] LABS: BUN Creatinine Ratio 12.3 (10-20); Calcium 8.2 mg/dl (8.5-10.1); Creatinine Clr Calc Pharmacy 40.3 ml/min; Est GFR (African American) 52.6; Est GFR (Non-African American) 45.4
[2019-02-09] MEDS: AMLODIPINE BESYLATE 5 MG TAB PO SCH (08:16)
[2019-02-09] MEDS: BENZTROPINE MESYLATE 1 MG TAB PO SCH ×2 (08:17→20:12)
[2019-02-09] MEDS: PERPHENAZINE 2 MG TABLET PO SCH ×3 (08:17→20:13)
[2019-02-09] MEDS: ASPIRIN 81 MG ECTAB PO SCH (08:17)
[2019-02-09] MEDS: MULTIVITAMIN TAB PO SCH (08:17)
--- NOTE | 2019-02-09 15:40 | Hospitalist Progress Note ---
Date of Service February 09, 2019 Assessment & Plan (1) Severe sepsis: Severe sepsis SIRS+ ARF CT abdomen suggestive of nonspecific proctocolitis Abnormal UA: R/O UTI Persistent leukocytosis Afebrile, normal lactate levels Urine culture: Preliminary--Corynebacterium species Stool Culture:pending CT chest:No evidence of consolidation Blood cultures: Pending Stool for C. difficile: Negative Continue empiric Zosyn for now Continue IV fluids Urinary retention CT ABD:Prostatomegaly with evidence of chronic bladder outlet obstruction. Bladder scan/straight cath as needed Start flomax Consider urology evaluation if needed Diarrhea CT ABD: Nonspecific proctocolitis Continue IV zosyn for now Stool for C. difficile negative Stool culture:pending Imodium as needed Mechanical fall --CT Head:Senescent changes as above with no hemorrhage, mass effect, or evidence of acute territorial ischemia by CT criteria. --CT Neck:There is no evidence of fracture or subluxation involving the cervical spine. Osteopenia and spondylotic change as above. Erosive arthropathy involving the right facet joint at C3-C4 is new from previous. Emphysema. A right parotid nodule is unchanged from 2018. --Check Lumbar/Pelvic X ray for back pain Pulmonary nodule H/O tobacco use CT Chest:There is no acute posttraumatic intrathoracic abnormality. Emphysema. There is no airspace consolidation, pleural effusion, or pneumothorax. There is no evidence of solid organ injury in the abdomen or pelvis. There is a 10 mm spiculated nodule in the right lower lobe, new from 2015. There are additional small foci of tree-in-bud nodularity present at the lung bases. Although this could potentially be on an inflammatory basis the appearance is concerning for neoplasm. A 1-2 month follow-up chest CT is recommended for reassessment. If this fails to resolve then neoplasm becomes the diagnosis of exclusion. A 5 mm right middle lobe pulmonary nodule has only minimally increased in size dating back to 2015. This can also be reassessed at follow-up. Findings are consistent with a nonspecific proctocolitis. Clinical correlation will be essential. Cholelithiasis. There are 2 indeterminate left renal lesions which do not meet CT criteria for simple cysts. Nonemergent follow-up with a renal protocol MRI is recommended for further assessment. Prostatomegaly with evidence of chronic bladder outlet obstruction. Additional findings as above. --Needs repeat CT chest in 1 to 2 months Acute Kidney Injury Likely due to dehydration from diarrhea Hold lisinopril for now Continue IV fluids Monitor renal function Avoid nephrotoxic agents as able H/O CVA--as per records Continue aspirin Currently not on any statins H/O Schizoaffective disorder H/O Dementia Continue home meds Hypertension stable Continue amlodipine Lisinopril held due to COLT Chronic upper lip hemangioma Follow-up as outpatient Chronic anemia Hb at baseline Monitor DVT Px: Heparin SQ Code Status Full code Disposition PT/OT prior to discharge Family contact: Ms. Radha Noble (niece/POA) thru [phone] Subjective Patient is seen and examined at bedside Complains of diarrhea, dysuria today Abdominal pain is better Also complains of lower back pain since fall Denies any chest pain, shortness of breath, dizziness, nausea Review of Systems Review of Systems: All systems reviewed & are unremarkable except as noted in HPI & below Physical Exam Physical Exam: Physical Exam: Vitals signs as noted above General Appearance:Moderately built and nourished, no apparent distress Head: normocephalic, Atraumatic, + upper lip hemangioma Eyes: normal inspection, EOMI Neck: supple, Trachea midline Respiratory/Chest: Decreased breath sounds, CTA Cardiovascular: S1, S2, No murmur Abdomen/GI:Soft, Non tender, no guarding or rigidity, bowel sounds present Extremities/Musculoskelatal:normal inspection, 1+ B/L LE edema Neurologic/Psych: grossly no focal neurological deficits, + dementia Skin: normal color, warm Results & Data Vital Signs (Past 12 Hours) Vital Signs Temp Pulse Pulse Resp BP Pulse Ox Pulse Ox 02/09/19 11:35 36.7 C 73 16 114/71 99 02/09/19 07:38 77 02/09/19 07:12 36.8 C 78 18 104/63 99 02/09/19 04:00 36.7 C 83 20 109/67 99 02/09/19 03:46 95 Laboratory Results Short CBC 02/08/19 02/09/19 Range/Units 19:47 06:58 WBC 19.24 H 19.54 H (4.8-10.8) K/uL Hgb 12.5 L 10.4 L (14.0-18.0) g/dL Hct 37.8 L 31.1 L (42-52) % Plt Count 205 244 (130-400) K/uL BMP 02/08/19 02/08/19 02/09/19 19:47 20:36 06:58 Sodium 135 L 137 Potassium 4.6 4.0 Chloride 104 107 Carbon Dioxide 24 24 BUN 17 18 Creatinine 1.58 H 1.46 H Glucose 114 H 117 H Calcium 9.2 8.2 L Cardiac Enzymes 02/08/19 02/08/19 Range/Units 20:36 20:36 Troponin I 0.019 Cancelled (0-0.045) ng/ml Liver Function 02/08/19 02/08/19 Range/Units 19:47 20:36 Total Bilirubin 0.4 (0.2-1) mg/dl AST 13 L (15-37) U/L ALT 13 (12-78) U/L Alkaline Phosphatase 79 (45-117) U/L Albumin 3.0 L (3.4-5.0) gm/dl Urine 02/08/19 Range/Units 22:15 Urine Color Yellow Urine Appearance Turbid A (Clear) Urine pH 6.5 (4.5-7.5) Ur Specific [place] 1.017 (1.000-1.030) Urine Protein Trace H (Negative) Urine Glucose (UA) Negative (Negative)
[2019-02-09] MEDS ORDERED: TAMSULOSIN HCL 0.4 MG CAP PO ONE (15:48)
--- NOTE | 2019-02-09 16:40 | XRay Report ---
XR pelvis 1-2V routine CLINICAL HISTORY: Pain status post trauma COMPARISON: None. DISCUSSION: There is contrast within the bladder secondary to a prior CT scan. No fractures are visua lized. There are extensive vascular calcifications. There is no dislocation. There is no SI joint geovany stases. There is no symphysis diastases. IMPRESSION: No fractures identified. Electronically signed by: Atif Campuzano M.D. 02/09/2019 4:39 PM
--- NOTE | 2019-02-09 16:42 | XRay Report ---
LUMBAR SPINE 3 VIEWS CLINICAL HISTORY: Fall. Back pain. FINDINGS: 3 views of the lumbar spine are correlated with abdominal CT dated 02/08/2019. The skeletal structures are osteopenic. There is no radiographic evidence of fracture or malalignment. Vertebral body height and alignment are maintained. Small anterior and lateral marginal osteophytes are seen th roughout. The transverse and spinous processes are intact. Facet arthropathy is noted in the lower andrea mbar region. The intervertebral disc spaces are maintained. The visualized bony pelvis appears intact . There is a nonobstructed abdominal bowel gas pattern. The bladder is filled with excreted IV contra st. There is advanced atherosclerotic calcification and ectasia of the abdominal aorta. IMPRESSION: 1. No acute bony abnormality is seen involving the lumbar spine, and there has been no significant ch susana from yesterday's CT scan. 2. Osteopenia and mild spondylotic change as above. Electronically signed by: Jason Camacho M.D. 02/09/2019 4:40 PM
[2019-02-09] MEDS: LACTOBACILLUS ACIDOPHILUS (FLORANEX) TAB PO SCH ×2 (17:26→20:12)
[2019-02-09] MEDS: MIRTAZAPINE TAB 15 MG TAB PO SCH (20:13)
[2019-02-10] MEDS: PIPERACILLIN/TAZOBACTAM 3.375 GM in DEXTROSE 5% 100 ML IV SCH ×3 (05:52→21:20)
[2019-02-10] MEDS: HEPARIN SOD 5,000 UNIT/0.5 ML VIAL SQ SCH ×3 (05:55→20:16)
[2019-02-10 06:11] LABS: Hematocrit (blood only) 29.9 % (42-52); Mean Corpuscular Hemoglobin 29.6 pg (25-34); Mean Corpuscular Hgb Conc 33.4 g/dL (32-36); Mean Corpuscular Volume 88.5 fL (80-100); Mean Platelet Volume 9.3 fL (7.4-10.4); Platelet Count 223 K/uL (130-400); RDW Coefficient of Variation 14.5 % (11.5-14.5); Red Blood Count 3.38 M/uL (4.7-6.1); White Blood Count 14.21 K/uL (4.8-10.8)
[2019-02-10 06:58] LABS: BUN Creatinine Ratio 7.9 (10-20); Calcium 8.1 mg/dl (8.5-10.1); Creatinine Clr Calc Pharmacy 43.3 ml/min; Est GFR (African American) 57.4; Est GFR (Non-African American) 49.5; Magnesium 1.7 mg/dl (1.8-2.4); Potassium 3.9 mmol/L (3.5-5.1)
[2019-02-10] MEDS: LACTOBACILLUS ACIDOPHILUS (FLORANEX) TAB PO SCH ×5 (07:56→20:16)
[2019-02-10] MEDS: PERPHENAZINE 2 MG TABLET PO SCH ×3 (07:56→20:16)
[2019-02-10] MEDS: BENZTROPINE MESYLATE 1 MG TAB PO SCH ×2 (07:57→20:16)
[2019-02-10] MEDS: MULTIVITAMIN TAB PO SCH (07:57)
[2019-02-10] MEDS: AMLODIPINE BESYLATE 5 MG TAB PO SCH (07:57)
[2019-02-10] MEDS: ASPIRIN 81 MG ECTAB PO SCH (07:57)
[2019-02-10] MEDS: TAMSULOSIN HCL 0.4 MG CAP PO SCH (07:57)
[2019-02-10] MEDS ORDERED: MAGNESIUM SULFATE / D5W 1 GM/100 ML BAG IV SCH (08:45)
--- NOTE | 2019-02-10 10:48 | Urology Consultation ---
Date of Consultation February 10, 2019 Assessment & Plan (1) Urinary retention due to benign prostatic hyperplasia: 78yo M from [facility] admitted for fall, found to have UTI and AUR. Continue broad spectrum abx for now, plan to treat with 10-14 days abx based upon sensitivities. Maintain stafford catheter to allow for maximal drainage. Continue flomax daily, will add finasteride to regimen. Plan to maintain catheter for 2 weeks, okay to attempt passive TOV at facility. However if patient unable to void after 8 hours, please replace catheter. Will arrange for followup as outpatient. Thank you for allowing us to participate in the acute care of Mr. Mcfarland. Please reconsult us with additional questions, concerns or changes in patient status. History of Present Illness Reason for Consultation: UR Requesting Physician: Dr. Moulton Attending Physician: Diaz Moulton MD History of Present Illness 78yo M with extensive PMHx including dementia and schizoaffective disorder admitted via [facility] ED from [facility] s/p fall due to "loss of strength", suspected UTI. We were consulted to assist in care of urinary retention. Pt required repeat straight catheterization during hospital stay, straight cathed for >1,200cc yesterday. Coude catheter placed by nursing yesterday without difficulty. Per notes pt denied any sensation of full bladder prior to straight cath. Pt sitting up in chair at time of evaluation, alert and oriented to place and self. Pt appears to be a good historian despite cognitive impairment. States he has noticed slow stream, some dysuria off and on prior to admission. Mild incontinence at baseline. Pt states he has required a catheter once before during hospitalization. Never previously evaluated by urologist, not on any BPH medications. 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 Chart Review: CT abd/pelvis reveals distended bladder, enlarged prostate. No upper tract obstruction - no hydronephosis or stones appreciated. Cr WNL. UC&S prelim >100,000 cfu cornybacterium species Currently on Zosyn IV. Allergies Allergy/AdvReac Type Severity Reaction Status Date / Time olanzapine Allergy Mild "IT DOES Verified 11/22/18 11:18 NOT WORK" risperidone Allergy Unknown UNKNOWN Verified 11/22/18 11:18 Tricyclic Antidepressants Allergy Unknown . Uncoded 11/22/18 11:18 Flu Virus Vaccine AdvReac Unknown CAUSES Uncoded 11/22/18 11:18 PAIN AT INJECTION SITE Home Medications Home Medications Medication Instructions Recorded Confirmed Type Artificial Tears (PF) 1 drp OPB BID 11/22/18 02/08/19 History Bengay Greaseless 1 applic TOPICAL QID PRN 11/22/18 02/08/19 History Calmoseptine 1 applic TOPICAL DAILY 11/22/18 02/08/19 History Cepacol Sore Throat (anand-men) 1 sheila PO Q4H PRN 11/22/18 02/08/19 History Bing's wort 300 mg PO DAILY 11/22/18 02/08/19 History acetaminophen 650 mg PO Q4H PRN 11/22/18 02/08/19 History aspirin 81 mg PO DAILY 11/22/18 02/08/19 History benztropine 1 mg PO BID 11/22/18 02/08/19 History docusate sodium 100 mg PO BID 11/22/18 02/08/19 History fluphenazine HCl 2.5 mg PO Q6H PRN 11/22/18 02/08/19 History fluphenazine decanoate 25 mg IM MONTHLY 11/22/18 02/08/19 History lorazepam 0.5 mg PO TID PRN 11/22/18 02/08/19 History memantine 10 mg PO BID 11/22/18 02/08/19 History mirtazapine 30 mg PO HS 11/22/18 02/08/19 History multivitamin 1 tab PO DAILY 11/22/18 02/08/19 History perphenazine 8 mg PO TID 11/22/18 02/08/19 History polyethylene glycol 3350 17 g PO DAILY@1200 PRN 11/22/18 02/08/19 History simethicone 80 mg PO ACHS PRN 11/22/18 02/08/19 History amlodipine 5 mg PO DAILY 02/08/19 02/08/19 History calcium carbonate [Calcium Antacid] 500 mg PO Q4H PRN 02/08/19 02/08/19 History lisinopril 10 mg PO DAILY 02/08/19 02/08/19 History loperamide [Imodium A-D] 2 mg PO Q3H PRN 02/08/19 02/08/19 History Patient History Medical History H/O: CVA (cerebrovascular accident) (Chronic) Schizoaffective disorder (Chronic) HTN (hypertension) (Chronic) Dementia (Chronic) Surgical History Hx of cataract surgery (Chronic) S/P tonsillectomy (Chronic) Family History Other Hypertension Social History Preferred Language: Guyanese Communication Ability: Effective Carbon Cleaner Required: No Beliefs That Will Affect Care: None Current Living Situation: Personal Care Facility Current Living Situation Comment: [facility] Other Information That Helps Us Care for You: No Feels Safe at Home: Yes Safety Concerns: Feels Safe At This Time Smoking Status: Former smoker Hx Alcohol Use: No Hx Substance Use: No Review of Systems Review of Systems: Constitutional: Denies fever, chills, sweats, malaise Eyes: Denies problem reported ENMT: Denies dizziness Resp: Denies cough, Denies shortness of breath CV: Denies JVD GI: Denies nausea/vomiting : Denies suprapubic or flank pain, dysuria, urgency, frequency, hematuria MS: Denies swelling, stiffness Integ: Denies rash, erythema Neuro: Denies falls, weakness Psych: Denies behavior change Endo: Denies polyphagia, polydipsia Heme: Denies easy bleeding Physical Exam Constitutional: + physical limitations, + frail appearing and + disheveled; no acute distress and not ill appearing Eyes: no nystagmus ENMT: Ears: no hearing impairment Neck: trachea midline Respiratory: no respiratory distress and no cough Cardiovascular: Vessels: no JVD Chest (Breasts): Chest: normal inspection of chest Gastrointestinal (Abdomen): Inspection/Auscultation: abdomen not distended and no abdominal edema Percussion/Palpation: abdomen soft; abdomen nontender Musculoskeletal: Head/Neck/Chest: normocephalic and head atraumatic Skin: no rashes, warm and dry swollen left lip Neurologic: awake; not confused and not obtunded Psychiatric: Orientation: alert and oriented x 3 Eye Contact: good eye contact Affect: no depressed affect Genitourinary: bladder normal to inspection; no CVA tenderness stafford draining clear yellow Lymphatic: no lymphadenopathy and no lymphedema Results & Data Vital Signs (Past 12 Hours) Vital Signs Temp Pulse Resp BP BP Pulse Ox Pulse Ox 02/10/19 07:26 36.7 C 78 20 126/73 97 02/10/19 04:08 36.9 C 86 18 145/77 H 96 02/10/19 03:00 96 02/10/19 00:22 36.9 C 97 H 17 145/78 H 95 PG Care Time/CCT Total # of Minutes Spent Total Time Spent with Patient: Total time spent is greater than 50% in coordination of care (as documented) at patient's floor/unit and/or counseling patient:
--- NOTE | 2019-02-10 18:44 | Hospitalist Progress Note ---
Date of Service February 10, 2019 Assessment & Plan (1) Severe sepsis: Severe sepsis SIRS+ ARF CT abdomen suggestive of nonspecific proctocolitis Abnormal UA: R/O UTI Persistent leukocytosis Afebrile, normal lactate levels Urine culture: Preliminary--Corynebacterium Stool Culture:pending CT chest:No evidence of consolidation Blood cultures: No growth to date Stool for C. difficile: Negative Continue Zosyn Day#2 Received IV fluids Clinically improved Urinary retention CT ABD:Prostatomegaly with evidence of chronic bladder outlet obstruction. Bladder scan/straight cath as needed Started on flomax, finasteride Appreciate neurology input Continue Guy catheter for 2 weeks Needs follow-up with urology upon discharge Diarrhea CT ABD: Nonspecific proctocolitis Continue zosyn Stool for C. difficile negative Stool culture:pending Imodium as needed Mechanical fall --CT Head:Senescent changes as above with no hemorrhage, mass effect, or evidence of acute territorial ischemia by CT criteria. --CT Neck:There is no evidence of fracture or subluxation involving the cervical spine. Osteopenia and spondylotic change as above. Erosive arthropathy involving the right facet joint at C3-C4 is new from previous. Emphysema. A right parotid nodule is unchanged from 2018. --Lumbar/Pelvic X ray for back pain: No acute fractures --PT/OT Pulmonary nodule H/O tobacco use CT Chest:There is no acute posttraumatic intrathoracic abnormality. Emphysema. There is no airspace consolidation, pleural effusion, or pneumothorax. There is no evidence of solid organ injury in the abdomen or pelvis. There is a 10 mm spiculated nodule in the right lower lobe, new from 2015. There are additional small foci of tree-in-bud nodularity present at the lung bases. Although this could potentially be on an inflammatory basis the appearance is concerning for neoplasm. A 1-2 month follow-up chest CT is recommended for reassessment. If this fails to resolve then neoplasm becomes the diagnosis of exclusion. A 5 mm right middle lobe pulmonary nodule has only minimally increased in size dating back to 2015. This can also be reassessed at follow-up. Findings are consistent with a nonspecific proctocolitis. Clinical correlation will be essential. Cholelithiasis. There are 2 indeterminate left renal lesions which do not meet CT criteria for simple cysts. Nonemergent follow-up with a renal protocol MRI is recommended for further assessment. Prostatomegaly with evidence of chronic clarisa dder outlet obstruction. Additional findings as above. --Needs repeat CT chest in 1 to 2 months --Discussed CT results with office of aging Acute Kidney Injury Likely due to dehydration from diarrhea Hold lisinopril for now Received IV fluids Monitor renal function Avoid nephrotoxic agents as able Cr levels improved H/O CVA--as per records Continue aspirin Currently not on any statins H/O Schizoaffective disorder H/O Dementia Continue home meds Hypertension stable Continue amlodipine Lisinopril held due to COLT Chronic upper lip hemangioma Follow-up as outpatient Chronic anemia Hb at baseline Monitor DVT Px: Heparin SQ Code Status Full code Disposition PT/OT prior to discharge Family contact: Ms. Radha Noble (niece/POA) thru [phone] Subjective Patient is seen and examined at bedside States feeling a lot better today Has mild discomfort at the catheter site Diarrhea improved Appreciate urology input Discussed with office of aging in detail today Denies any chest pain, shortness of breath, dizziness, nausea, abd pain Review of Systems Review of Systems: All systems reviewed & are unremarkable except as noted in HPI & below Physical Exam Physical Exam: Physical Exam: Vitals signs as noted above General Appearance:Moderately built and nourished, no apparent distress Head: normocephalic, Atraumatic, + upper lip hemangioma Eyes: normal inspection, EOMI Neck: supple, Trachea midline Respiratory/Chest: Decreased breath sounds, CTA Cardiovascular: S1, S2, No murmur Abdomen/GI:Soft, Non tender, no guarding or rigidity, bowel sounds present Extremities/Musculoskelatal:normal inspection, 1+ B/L LE edema Neurologic/Psych: grossly no focal neurological deficits, + dementia Skin: normal color, warm Results & Data Vital Signs (Past 12 Hours) Vital Signs Temp Pulse Pulse Resp BP BP Pulse Ox 02/10/19 16:35 82 02/10/19 15:08 36.6 C 87 20 142/69 H 98 02/10/19 12:03 36.6 C 76 18 99/61 L 90 02/10/19 07:26 36.7 C 78 20 126/73 97 Laboratory Results Short CBC 02/10/19 Range/Units 05:57 WBC 14.21 H (4.8-10.8) K/uL Hgb 10.0 L (14.0-18.0) g/dL Hct 29.9 L (42-52) % Plt Count 223 (130-400) K/uL [facility] 02/10/19 05:57 Sodium 139 Potassium 3.9 Chloride 111 H Carbon Dioxide 23 BUN 11 Creatinine 1.36 Glucose 98 Calcium 8.1 L
[2019-02-10] MEDS: MIRTAZAPINE TAB 15 MG TAB PO SCH (20:16)
[2019-02-10] MEDS: ACETAMINOPHEN 325 MG TAB PO PRN (21:20)
[2019-02-11] MEDS: PIPERACILLIN/TAZOBACTAM 3.375 GM in DEXTROSE 5% 100 ML IV SCH ×2 (05:21→13:48)
[2019-02-11] MEDS: HEPARIN SOD 5,000 UNIT/0.5 ML VIAL SQ SCH ×2 (05:22→13:47)
[2019-02-11 07:18] LABS: Hematocrit (blood only) 30.5 % (42-52); Hemoglobin 10.2 g/dL (14.0-18.0); Mean Corpuscular Hemoglobin 29.4 pg (25-34); Mean Corpuscular Hgb Conc 33.4 g/dL (32-36); Mean Corpuscular Volume 87.9 fL (80-100); Mean Platelet Volume 9.2 fL (7.4-10.4); Platelet Count 251 K/uL (130-400); RDW Coefficient of Variation 14.4 % (11.5-14.5); RDW Standard Deviation 46.4 fL (36.4-46.3); Red Blood Count 3.47 M/uL (4.7-6.1); White Blood Count 12.27 K/uL (4.8-10.8)
[2019-02-11] MEDS: LACTOBACILLUS ACIDOPHILUS (FLORANEX) TAB PO SCH ×2 (07:31→12:44)
[2019-02-11] MEDS: ASPIRIN 81 MG ECTAB PO SCH (07:32)
[2019-02-11] MEDS: PERPHENAZINE 2 MG TABLET PO SCH ×2 (07:32→14:06)
[2019-02-11] MEDS: TAMSULOSIN HCL 0.4 MG CAP PO SCH (07:32)
[2019-02-11] MEDS: MULTIVITAMIN TAB PO SCH (07:32)
[2019-02-11] MEDS: BENZTROPINE MESYLATE 1 MG TAB PO SCH (07:33)
[2019-02-11] MEDS: AMLODIPINE BESYLATE 5 MG TAB PO SCH (07:33)
[2019-02-11 07:50] LABS: BUN Creatinine Ratio 7.8 (10-20); Calcium 8.2 mg/dl (8.5-10.1); Creatinine Clr Calc Pharmacy 52.6 ml/min; Est GFR (African American) 72.5; Est GFR (Non-African American) 62.6; Magnesium 1.9 mg/dl (1.8-2.4); Potassium 3.7 mmol/L (3.5-5.1)
[2019-02-11] MEDS ORDERED: FINASTERIDE 5 MG TAB PO SCH (09:00)
--- NOTE | 2019-02-11 13:04 | Hospitalist Progress Note ---
Date of Service February 11, 2019 Assessment & Plan (1) Severe sepsis: Severe sepsis SIRS+ ARF CT abdomen suggestive of nonspecific proctocolitis Abnormal UA: R/O UTI Persistent leukocytosis Afebrile, normal lactate levels Urine culture: Preliminary--Corynebacterium CT chest:No evidence of consolidation Blood cultures: No growth to date Stool for C. difficile: Negative Continue Zosyn Day#3 Received IV fluids To transition to p.o. antibiotics upon discharge Urinary retention CT ABD:Prostatomegaly with evidence of chronic bladder outlet obstruction. Bladder scan/straight cath as needed Started on flomax, finasteride Appreciate neurology input Continue Guy catheter for 2 weeks Needs follow-up with urology upon discharge Diarrhea CT ABD: Nonspecific proctocolitis Received zosyn Stool for C. difficile negative Imodium as needed Mechanical fall --CT Head:Senescent changes as above with no hemorrhage, mass effect, or evidence of acute territorial ischemia by CT criteria. --CT Neck:There is no evidence of fracture or subluxation involving the cervical spine. Osteopenia and spondylotic change as above. Erosive arthropathy involving the right facet joint at C3-C4 is new from previous. Emphysema. A right parotid nodule is unchanged from 2018. --Lumbar/Pelvic X ray for back pain: No acute fractures --PT/OT Pulmonary nodule H/O tobacco use CT Chest:There is no acute posttraumatic intrathoracic abnormality. Emphysema. There is no airspace consolidation, pleural effusion, or pneumothorax. There is no evidence of solid organ injury in the abdomen or pelvis. There is a 10 mm spiculated nodule in the right lower lobe, new from 2015. There are additional small foci of tree-in-bud nodularity present at the lung bases. Although this could potentially be on an inflammatory basis the appearance is concerning for neoplasm. A 1-2 month follow-up chest CT is recommended for reassessment. If this fails to resolve then neoplasm becomes the diagnosis of exclusion. A 5 mm right middle lobe pulmonary nodule has only minimally increased in size dating back to 2015. This can also be reassessed at follow-up. Findings are consistent with a nonspecific proctocolitis. Clinical correlation will be essential. Cholelithiasis. There are 2 indeterminate left renal lesions which do not meet CT criteria for simple cysts. Nonemergent follow-up with a renal protocol MRI is recommended for further assessment. Prostatomegaly with evidence of chronic bladder outlet obstruction. Additional findings as above. --Needs repeat CT chest in 1 to 2 months --Discussed CT results with patient and POA/office of aging Acute Kidney Injury Likely due to dehydration from diarrhea Hold lisinopril for now Received IV fluids Monitor renal function Avoid nephrotoxic agents as able Cr levels back to baseline H/O CVA--as per records Continue aspirin Currently not on any statins H/O Schizoaffective disorder H/O Dementia Continue home meds Hypertension stable Continue amlodipine Lisinopril held due to COLT Chronic upper lip hemangioma Follow-up as outpatient Chronic anemia Hb at baseline Monitor DVT Px: Heparin SQ Code Status Full code Disposition Family contact: Ms. Radha Noble (niece/POA) thru [phone] Subjective Patient is seen and examined at bedside Offers no complaints today Denies any chest pain, shortness of breath, dizziness, nausea, abd pain Plan to be discharge to [facility] today Review of Systems Review of Systems: All systems reviewed & are unremarkable except as noted in HPI & below Physical Exam Physical Exam: Physical Exam: Vitals signs as noted above General Appearance:Moderately built and nourished, no apparent distress Head: normocephalic, Atraumatic, + upper lip hemangioma Eyes: normal inspection, EOMI Neck: supple, Trachea midline Respiratory/Chest: Decreased breath sounds, CTA Cardiovascular: S1, S2, No murmur Abdomen/GI:Soft, Non tender, no guarding or rigidity, bowel sounds present Extremities/Musculoskelatal:normal inspection, 1+ B/L LE edema Neurologic/Psych: grossly no focal neurological deficits, + dementia Skin: normal color, warm Results & Data Vital Signs (Past 12 Hours) Vital Signs Temp Pulse Resp BP BP Pulse Ox 02/11/19 12:05 36.7 C 86 20 152/84 H 97 02/11/19 08:10 36.8 C 83 20 151/83 H 95 02/11/19 04:00 36.7 C 81 19 165/89 H 96 Laboratory Results Short CBC 02/11/19 Range/Units 06:41 WBC 12.27 H (4.8-10.8) K/uL Hgb 10.2 L (14.0-18.0) g/dL Hct 30.5 L (42-52) % Plt Count 251 (130-400) K/uL BMP 02/11/19 06:41 Sodium 140 Potassium 3.7 Chloride 109 H Carbon Dioxide 26 BUN 9 Creatinine 1.12 Glucose 86 Calcium 8.2 L
--- NOTE | 2019-02-11 13:26 | Discharge Summary ---
Date of Service February 11, 2019 Admission HPI Per Admitting Provider History obtained from patient and records. Limited history patient secondary to dementia. Medical history significant for mood disorder, dementia, history CVA as per records, schizoaffective disorder as per records, hypertension, chronic upper lip hemangioma, chronic anemia (baseline hemoglobin 11-12), past tobacco abuse. Recent confinement last November 2018 for aspiration pneumonitis, E. coli UTI. Patient complaining of nonspecific abdominal pain to halfway staff today. Diarrhea symptoms noted. Patient fell backwards upon trying to get up subsequently hitting his head. No account of syncope/LOC. At the ER, patient given IV ceftriaxone for UTI. MEDICAL HISTORY: As above. SURGERIES: cystoscopy and tonsillectomy. FAMILY HISTORY: Could not be reliably obtained PERSONAL AND SOCIAL HISTORY: He is a [facility] resident, past tobacco abuse. 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 Admission Exam Per Admitting Provider GENERAL: Slightly uncomfortable, demented, no respiratory distress SKIN: Pallor, warm HEENT: Pale palpebral conjunctivae, no ptosis, chronic right upper lip mass, dry buccal mucosa NECK : Supple, no tenderness CHEST : CTA, no tenderness HEART : Tachycardic, no obvious murmurs ABDOMEN: Some distention, central abdominal tenderness EXTREMITIES : No LE swelling/tenderness, no other conspicuous deformities noted NEUROLOGIC : Demented, old facial asymmetry, slightly hard of hearing, no other gross focality Principal Diagnosis Sepsis Acute kidney injury Urinary retention Proctocolitis Pulmonary nodule Discharge Data Allergies Allergy/AdvReac Type Severity Reaction Status Date / Time olanzapine Allergy Mild "IT DOES Verified 11/22/18 11:18 NOT WORK" risperidone Allergy Unknown UNKNOWN Verified 11/22/18 11:18 Tricyclic Antidepressants Allergy Unknown . Uncoded 11/22/18 11:18 Flu Virus Vaccine AdvReac Unknown CAUSES Uncoded 11/22/18 11:18 PAIN AT INJECTION SITE Consultations 02/08/19 23:17 ED Decision to Admit Stat 02/10/19 10:30 Consult Urology Routine Procedures Performed CT ABD: 1. There is no acute posttraumatic intrathoracic abnormality. 2. Emphysema. 3. There is no airspace consolidation, pleural effusion, or pneumothorax. 4. There is no evidence of solid organ injury in the abdomen or pelvis. 5. There is a 10 mm spiculated nodule in the right lower lobe, new from 2014. There are additional small foci of tree-in-bud nodularity present at the lung bases. Although this could potentially be on an inflammatory basis the appearance is concerning for neoplasm. A 1-2 month follow-up chest CT is recommended for reassessment. If this fails to resolve then neoplasm becomes the diagnosis of exclusion. 6. A 5 mm right middle lobe pulmonary nodule has only minimally increased in size dating back to 2014. This can also be reassessed at follow-up. 7. Findings are consistent with a nonspecific proctocolitis. Clinical correlation will be essential. 8. Cholelithiasis. 9. There are 2 indeterminate left renal lesions which do not meet CT criteria for simple cysts. Nonemergent follow-up with a renal protocol MRI is recommended for further assessment. 10. Prostatomegaly with evidence of chronic bladder outlet obstruction. 11. Additional findings as above. Head CT: Senescent changes as above with no hemorrhage, mass effect, or evidence of acute territorial ischemia by CT criteria. Chest CT: 1. There is no acute posttraumatic intrathoracic abnormality. 2. Emphysema. 3. There is no airspace consolidation, pleural effusion, or pneumothorax. 4. There is no evidence of solid organ injury in the abdomen or pelvis. 5. There is a 10 mm spiculated nodule in the right lower lobe, new from 2015. There are additional small foci of tree-in-bud nodularity present at the lung bases. Although this could potentially be on an inflammatory basis the appearance is concerning for neoplasm. A 1-2 month follow-up chest CT is recommended for reassessment. If this fails to resolve then neoplasm becomes the diagnosis of exclusion. 6. A 5 mm right middle lobe pulmonary nodule has only minimally increased in size dating back to 2014. This can also be reassessed at follow-up. 7. Findings are consistent with a nonspecific proctocolitis. Clinical correlation will be essential. 8. Cholelithiasis. 9. There are 2 indeterminate left renal lesions which do not meet CT criteria for simple cysts. Nonemergent follow-up with a renal protocol MRI is recommended for further assessment. 10. Prostatomegaly with evidence of chronic bladder outlet obstruction. 11. Additional findings as above. Neck CT: 1. There is no evidence of fracture or subluxation involving the cervical spine. 2. Osteopenia and spondylotic change as above. 3. Erosive arthropathy involving the right facet joint at C3-C4 is new from previous. 4. Emphysema. 5. A right parotid nodule is unchanged from 2018. Pelvic X ray: No fractures identified. Lumbar X ray: 1. No acute bony abnormality is seen involving the lumbar spine, and there has been no significant change from yesterday's CT scan. 2. Osteopenia and mild spondylotic change as above. Ordered Studies 02/08/19 19:55 CT abd pelvis IV con only Stat CT cervical spine wo con Stat CT chest w con Stat CT head/brain wo con Stat Hospital Course (1) Severe sepsis: Severe sepsis SIRS+ ARF CT abdomen suggestive of nonspecific proctocolitis Abnormal UA: R/O UTI Persistent leukocytosis Afebrile, normal lactate levels Urine culture: Preliminary--Corynebacterium CT chest:No evidence of consolidation Blood cultures: No growth to date Stool for C. difficile: Negative Continue Zosyn Day#3 Received IV fluids To transition to p.o. antibiotics upon discharge Urinary retention CT ABD:Prostatomegaly with evidence of chronic bladder outlet obstruction. Bladder scan/straight cath as needed Started on flomax, finasteride Appreciate neurology input Continue Guy catheter for 2 weeks Needs follow-up with urology upon discharge Diarrhea CT ABD: Nonspecific proctocolitis Received zosyn Stool for C. difficile negative Imodium as needed Mechanical fall --CT Head:Senescent changes as above with no hemorrhage, mass effect, or evidence of acute territorial ischemia by CT criteria. --CT Neck:There is no evidence of fracture or subluxation involving the cervical spine. Osteopenia and spondylotic change as above. Erosive arthropathy involving the right facet joint at C3-C4 is new from previous. Emphysema. A right parotid nodule is unchanged from 2018. --Lumbar/Pelvic X ray for back pain: No acute fractures --PT/OT Pulmonary nodule H/O tobacco use CT Chest:There is no acute posttraumatic intrathoracic abnormality. Emphysema. There is no airspace consolidation, pleural effusion, or pneumothorax. There is no evidence of solid organ injury in the abdomen or pelvis. There is a 10 mm spiculated nodule in the right lower lobe, new from 2015. There are additional small foci of tree-in-bud nodularity present at the lung bases. Although this could potentially be on an inflammatory basis the appearance is concerning for neoplasm. A 1-2 month follow-up chest CT is recommended for reassessment. If this fails to resolve then neoplasm becomes the diagnosis of exclusion. A 5 mm right middle lobe pulmonary nodule has only minimally increased in size dating back to 2014. This can also be reassessed at follow-up. Findings are consistent with a nonspecific proctocolitis. Clinical correlation will be essential. Cholelithiasis. There are 2 indeterminate left renal lesions which do not meet CT criteria for simple cysts. Nonemergent follow-up with a renal protocol MRI is recommended for further assessment. Prostatomegaly with evidence of chronic bladder outlet obstruction. Additional findings as above. --Needs repeat CT chest in 1 to 2 months --Discussed CT results with patient and POA/office of aging Acute Kidney Injury Likely due to dehydration from diarrhea Hold lisinopril for now Received IV fluids Monitor renal function Avoid nephrotoxic agents as able Cr levels back to baseline H/O CVA--as per records Continue aspirin Currently not on any statins H/O Schizoaffective disorder H/O Dementia Continue home meds Hypertension stable Continue amlodipine Lisinopril held due to COLT Chronic upper lip hemangioma Follow-up as outpatient Chronic anemia Hb at baseline Monitor DVT Px: Heparin SQ Code Status Full code Disposition Family contact: Ms. Radha Noble (niece/POA) thru [phone] Total Time Total Time Spent Total Time Spent (In Minutes): 43 minutes Total Time Includes: Examination of the Patient, Discharge Planning, Medication Reconciliation, Communication With Other Providers and Other Discharge Plan Discharge Items Patient Disposition: Personal Group Home Reason For Visit: SEPSIS Discharge Diagnosis: Sepsis Acute kidney injury Urinary retention Proctocolitis Pulmonary nodule Activity: Resume your previous activity Exercise/Sports: Gradually increase as tolerated Non-emergency contact: Primary Care Provider and Urologist Call non-emergency contact if: you have any medication questions, your symptoms worsen, your pain is not controlled, your pain is worsening, your pain is unusual for you, your pain is concerning for you and you have a fever [facility] Care [facility] - Diet: Heart Healthy and Lactose Intolerant Diet Texture: Mechanical soft (ground) Addtl Attending Provider Instructions: Follow-up with your primary care physician at [facility] in 1 week as advised Follow-up with your urologist Shadi Crenshaw in 2 weeks as advised Continue to maintain Guy catheter for 2 weeks as per recommendations from your urologist. Get repeat CT chest in 1-2 months for evaluation of pulmonary nodule. Further recommendations to be determined by your primary care physician/educational assistant for possible need for biopsy to rule out malignancy. Complete the antibiotic course as prescribed. Seek immediate medical attention if your symptoms reoccur or worsen Pending Studies at Discharge: No Stand-Alone Forms: My GetIntent, Smoking Cessation Skilled Items Patient informed of condition?: Yes DNR: No Discharge Level of Care: Other Communicable Disease: No Discharge Prognosis: Improving Lines: None Urinary Catheter: Yes Medications and DC Order Prescriptions: New tamsulosin 0.4 mg Capsule 0.4 mg PO QAM 30 Days Qty: 30 RF: 0 finasteride [Proscar] 5 mg Tablet 5 mg PO QAM 30 Days Qty: 30 RF: 0 Lactobacillus acidoph-L.bulgar [Floranex] 1 million cell Tablet 4 tab PO QIDM 10 Days Qty: 40 RF: 0 amoxicillin-pot clavulanate [Augmentin] 875-125 mg tablet 1 tab PO BID 4 Days Qty: 8 RF: 0 Continued amlodipine 5 mg Tablet 5 mg PO DAILY RF: 0 lisinopril 10 mg Tablet 10 mg PO DAILY RF: 0 loperamide [Imodium A-D] 2 mg Tablet 2 mg PO Q3H PRN (Reason: Diarrhea) RF: 0 calcium carbonate [Calcium Antacid] 200 mg calcium (500 mg) Tablet,Chewable 500 mg PO Q4H PRN (Reason: Dyspepsia) RF: 0 multivitamin Tablet 1 tab PO DAILY RF: 0 acetaminophen 325 mg Tablet 650 mg PO Q4H PRN (Reason: Pain) RF: 0 fluphenazine HCl 2.5 mg Tablet 2.5 mg PO Q6H PRN (Reason: mood) RF: 0 polyethylene glycol 3350 17 gram Powder In Packet 17 g PO DAILY@1200 PRN (Reason: Constipation) RF: 0 aspirin 81 mg Tablet,Delayed Release (Dr/Ec) 81 mg PO DAILY RF: 0 lorazepam 0.5 mg Tablet 0.5 mg PO TID PRN (Reason: Anxiety) RF: 0 fluphenazine decanoate 25 mg/mL Solution 25 mg IM MONTHLY RF: 0 mirtazapine 30 mg Tablet 30 mg PO HS RF: 0 benztropine 1 mg Tablet 1 mg PO BID RF: 0 perphenazine 8 mg Tablet 8 mg PO TID RF: 0 docusate sodium 100 mg Tablet 100 mg PO BID RF: 0 simethicone 80 mg Tablet,Chewable 80 mg PO ACHS PRN (Reason: Gi Upset) RF: 0 [place]'s wort 300 mg Capsule 300 mg PO DAILY RF: 0 Artificial Tears (PF) Dropperette 1 drp OPB BID RF: 0 memantine 10 mg Tablet 10 mg PO BID RF: 0 [place] Greaseless 15-10 % Cream 1 applic TOPICAL QID PRN (Reason: Pain) RF: 0 Calmoseptine 0.44-20.6 % Ointment 1 applic TOPICAL DAILY RF: 0 Cepacol Sore Throat (anand-men) 15-2.6 mg Lozenge 1 sheila PO Q4H PRN (Reason: Sore Throat) RF: 0 Discharge Orders: Discharge Order (Routine); Ordered 02/11/19 Ordered By: Diaz Moulton Admission Data Admit Date/Time: 02/08/19 23:52 Attending Provider: Diaz Moulton Admit Provider: David Carmona Primary Care Provider: GWEN ORTIZ Other Providers: David Carmona ; Shadi Crenshaw Other Interventions: Discharge Summary Assessment (RN) Last Done: 02/11/19 13:48 DC Date/Time DO NOT enter until pt leaves facility: 02/11/19 15:45
== END 2019-02-11 15:45 | disposition home or self-care (01) | DRG 872 ==
LOC: ED 19:33 → 2N 23:52

== ENCOUNTER 2019-02-19 10:18 | Inpatient (IN) ==
--- NOTE | 2019-02-19 11:06 | XRay Report ---
XR shoulder RT min 2V routine HISTORY: 78 years-old Male ?fall, erythema Lateral R shoulder acute right-sided shoulder pain status post fall COMPARISON: Chest radiograph of same day at 11/22/2018 TECHNIQUE: 2 views of the right shoulder FINDINGS: Mild to moderate glenohumeral with moderate AC joint degenerative change. Mild lateral soft tissue sw elling. No acute fracture, dislocation or opaque foreign body. Arterial calcifications are noted. Ijeoma ged lung raymond appear clear. 10 mm sclerotic focus projects over the anterolateral right third rib. IMPRESSION: No acute fracture or dislocation. The above report was generated using voice recognition software. It may contain grammatical, syntax o r spelling errors. Electronically signed by: Ezekiel Horner M.D. 02/19/2019 11:04 AM
--- NOTE | 2019-02-19 11:08 | XRay Report ---
XR chest 1V portable HISTORY: 78 years-old Male weakness acute weakness COMPARISON: Chest CT 02/08/2019, chest radiograph 11/22/2018 TECHNIQUE: Portable AP view of the chest FINDINGS: Cardiac silhouette is mildly enlarged. Emphysema with mild chronic interstitial coarsening. Previousl y noted spiculated 10 mm nodule right lower lobe is not identified. No pneumothorax, pleural effusion or overt pulmonary edema. Degenerative changes of the shoulders and spine. Calcified plaque of the t horacic aortic arch. IMPRESSION: 1. Emphysema without acute process. 2. Previously scribed pulmonary nodules as described on chest CT dated 02/08/2019 are not identified b y radiography. The above report was generated using voice recognition software. It may contain grammatical, syntax o r spelling errors. Electronically signed by: Ezekiel Horner M.D. 02/19/2019 11:07 AM
[2019-02-19 11:47] LABS: Albumin Level 2.9 gm/dl (3.4-5.0); Calcium 8.8 mg/dl (8.5-10.1); Est GFR (Non-African American) 20.7; Potassium 4.6 mmol/L (3.5-5.1)
[2019-02-19] MEDS ORDERED: LACTATED RINGER'S 2,000 ML IV ONE (11:56)
[2019-02-19] MEDS ORDERED: PIPERACILLIN/TAZOBACTAM 4.5 GM/120 ML BAG IV ONE (11:57)
[2019-02-19] MEDS ORDERED: VANCOMYCIN HCL 1,500 MG in SODIUM CHLORIDE 0.9% 500 ML IV ONE (11:57)
[2019-02-19] MEDS ORDERED: VANCOMYCIN CONSULT ACTIVE PRN (11:57)
[2019-02-19] MEDS ORDERED: PIPERACILL/TAZOBAC CONSULT ACTIVE PRN (11:57)
[2019-02-19 12:02] LABS: Albumin Globulin Ratio 0.7 (0.9-2); Bilirubin,Total 0.5 mg/dl (0.2-1); Thyroid Stimulating Hormone 1.69 uIu/ml (0.300-4.500); Total Protein 6.9 gm/dl (6.4-8.2); Troponin I 0.34 ng/ml (0-0.045)
[2019-02-19] MEDS ORDERED: SODIUM CHLORIDE 0.9% 1000ML 500 ML IV ONE ×2 (12:03→14:05)
[2019-02-19 12:05] LABS: Hematocrit (blood only) 32.4 % (42-52); Hemoglobin 10.8 g/dL (14.0-18.0); Mean Corpuscular Hemoglobin 29.9 pg (25-34); Mean Corpuscular Hgb Conc 33.3 g/dL (32-36); Mean Corpuscular Volume 89.8 fL (80-100); Mean Platelet Volume 9.5 fL (7.4-10.4); Platelet Count 292 K/uL (130-400); RDW Coefficient of Variation 14.9 % (11.5-14.5); RDW Standard Deviation 48.9 fL (36.4-46.3); Red Blood Count 3.61 M/uL (4.7-6.1); White Blood Count 54.25 K/uL (4.8-10.8)
[2019-02-19 12:07] LABS: Basophils # (auto) 0.02 K/uL (0-0.2); Immature Granulocytes # (auto) 0.42 K/uL (0.00-0.02); Immature Granulocytes % (auto) 0.8 %; Lymphocytes # (auto) 0.52 K/uL (1.2-3.4); Monocytes # (auto) 1.83 K/uL (0.11-0.59); Monocytes % (auto) 3.4 %; Neutrophils # (auto) 51.46 K/uL (1.4-6.5); Neutrophils % (auto) 94.8 %; Platelet Estimate Normal (Normal); Toxic Vacuolation 2+
--- NOTE | 2019-02-19 12:40 | CT Scan Report ---
CT head/brain wo con CLINICAL HISTORY: 78 years-old Male with weakness. Acute weakness TECHNIQUE: Multiple axial CT images of the head were obtained without contrast. A dose lowering tech nique was utilized adhering to the principles of ALARA. COMPARISON: Head CT 02/08/2019. FINDINGS: Motion degraded exam. No acute intracranial hemorrhage, midline shift, intracranial mass, hydrocephal us, territorial ischemia or abnormal extra-axial collection. Age-related involutional changes. Patchy white matter hypodensities suggest chronic microvascular ischemic disease. Cerebral vascular calcifi cations also noted. The calvarium is intact. Small right maxillary sinus air-fluid level suggesting acute sinusitis. Trac e left mastoid effusion. Right mastoid air cells are clear. No acute calvarial fracture. Soft tissues are unremarkable. Prior bilateral cataract repair. IMPRESSION: Motion degraded exam without acute intracranial abnormality identified. The above report was generated using voice recognition software. It may contain grammatical, syntax o r spelling errors. Electronically signed by: Ezekiel Horner M.D. 02/19/2019 12:38 PM
--- NOTE | 2019-02-19 12:58 | CT Scan Report ---
ABDOMEN AND PELVIS CT WITHOUT CONTRAST CT DOSE: 1658.06 mGy.cm HISTORY: Acute generalized abdominal pain abd pain, infection? TECHNIQUE: Multiaxial CT images of the abdomen and pelvis were performed without contrast. A dose lo wering technique was utilized adhering to the principles of ALARA. COMPARISON STUDY: CT abdomen and pelvis 02/08/2019 FINDINGS: Motion limits evaluation of the lung bases. Mild bibasilar atelectasis with pulmonary nodules redemon strated measuring up to 10 mm within the right lower lobe, better seen on comparison chest CT. Study is mildly motion degraded. Exam is also limited secondary to positioning of the patient's upper extre mities. There is no pneumatosis or pneumoperitoneum. The imaged inferior cardiac chambers are moderately enla rged. Coronary arterial calcifications are noted. Moderate gallbladder distention with cholelithiasis . No definite evidence of acute cholecystitis or biliary ductal dilation. Suggestion of mild hepatic steatosis. The unenhanced liver otherwise appears unremarkable. The spleen, pancreas and right adrena l gland are unremarkable. Unchanged 2.5 cm left adrenal gland adenoma. Renal vascular calcifications are noted bilaterally. Punctate nonobstructing calculus of the inferior pole right kidney. Mild bilateral pelvocaliectasis with mild prominence of the bilateral ureters. Ma rked urinary bladder distention is up to 20 cm in length. Air is also noted within the nondependent u rinary bladder lumen. The previously described indeterminate left renal lesions are better seen on co mparison contrast-enhanced exam. Prostamegaly. Extensive calcified plaque of the abdominal aorta with mild fusiform infrarenal abdominal aortic aneurysm, 3.1 x 2.6 cm. There is no adenopathy. Mild nonspecific wall thickening of the distal esophagus. Moderate fecal retention of the rectum. The re is decreased wall thickening of the distal sigmoid and rectum. No bowel obstruction identified. r and fluid-filled mildly dilated loops of small bowel within the left lower quadrant abdomen measure up to approximately 3.2 cm transversely. Nondilated fluid-filled loops of small bowel also noted wit hin the abdominal right lower quadrant. Noninflamed appendix. Mild generalized mesenteric and body wa ll edema. Degenerative changes of the spine, pelvis and hips. Healed remote left-sided rib fractures. IMPRESSION: 1. Prostamegaly with marked urinary bladder distention compatible with bladder outlet obstruction.. A ir is also noted within the nondependent urinary bladder suggestive of instrumentation versus gas for corby organism. Correlate with urinalysis. 2. Decreased wall thickening of the distal sigmoid colon and rectum suggests resolving proctocolitis. 3. Multiple fluid-filled loops of small bowel with mildly dilated loops in the left lower quadrant ab domen are suggestive of enteritis or ileus. No definite bowel obstruction identified. 4. Cholelithiasis with gallbladder distention. No CT evidence of acute cholecystitis. 5. Normal appendix. 6. Previously noted bibasilar pulmonary nodules and left renal lesions are better seen on comparison exam. 7. Additional findings as above. Electronically signed by: Ezekiel Horner M.D. 02/19/2019 12:55 PM
[2019-02-19 13:51] LABS: Appearance Urine Cloudy (Clear); Bilirubin Urine Negative (Negative); Blood Urine 3+ (Negative); Color Urine Red; Glucose Urine UA Negative (Negative); Ketones Urine Negative (Negative); Leukocyte Esterase Urine 2+ (Negative); Nitrite Urine Negative (Negative); Protein Urine 2+ (Negative); Specific Gravity Urine 1.015 (1.000-1.030); Urobilinogen Urine Negative (Negative)
[2019-02-19 14:00] LABS: RBC Urine >30 /hpf (0-4); WBC Urine >30 /hpf (0-5)
[2019-02-19 14:01] LABS: Bacteria Urine 3+ (Negative)
[2019-02-19 14:03] LABS: Calcium Oxalate Crystals Urine Present (None Prsent)
--- NOTE | 2019-02-19 14:15 | History & Physical Report ---
Date of Service February 19, 2019 Assessment & Plan (1) Sepsis: (2) Complicated UTI (urinary tract infection): This is a 78yo M from with a PMH of vascular dementia, schizoaffective disorder, HTN, history of CVA and other medical problems listed below from [facility] in [place] who presents with confusion since last evening and was found to have sepsis, complicated UTI with indwelling Stafford and acute kidney injury. -BP 102/67 and heart rate of 115. Leukocytosis of 54K with initial lactic acid 5 and troponin of 0.340. Creatinine elevated at 2.8 (baseline ~1.2) -Had stafford catheter in place upon arrival that had moved distally with some traumatic hematuria. Evidence of marked urinary bladder distention compatible with bladder outlet obstruction on CT abd/pelvis -Stafford replaced and drained ~2 L urine. Suprapubic tenderness has resolved -Urinalysis with blood, leuk esterase and urine bacteria present. Urine and blood cultures pending -Given 3 L IV fluid resuscitation in ED and started on empiric Zosyn and Vanc -Continue trending lactate, continue IV fluids. Follow cultures (3) Elevated troponin: Initial troponin of 0.340. Likely demand ischemia in setting of acute infection, sepsis -No chest pain or acute ischemic EKG changes. Chest x-ray without acute process -Monitor on telemetry, trend troponin (4) Acute kidney injury: Creatinine elevated at 2.8 (baseline ~1.2) -In setting of bladder outlet obstruction from malpositioned stafford -Should improve with replaced stafford, fluids -Daily BMP (5) Traumatic hematuria: In setting of bladder outlet obstruction from malpositioned stafford -Routine urology consult ordered -Was due for clinic follow up next week (6) Schizoaffective disorder: Stable. Continue Trilafon, Ativan PRN. Also receives monthly Prolixin injection (7) HTN (hypertension): BP currently 102/67 in setting of sepsis -Holding lisinopril and amlodipine for now -Reassess BP in the morning (8) H/O: CVA (cerebrovascular accident): Holding aspirin in setting of hematuria (9) Dysphagia: Mechanical soft diet. Aspiration precautions DVT Ppx: SCDs in setting of hematuria Code status: FULL. Will need to contact office of aging quality control representative on Wednesday to update & discuss code status (Radha at [phone]) PCP: Dispo: Admitted to PCU. Discharge planning ordered. Patient seen in collaboration with Dr. Joseph. Please see addendum. History of Present Illness Chief Complaint: confusion Primary Care Provider: [facility] This is a 78yo M from with a PMH of vascular dementia, schizoaffective disorder, HTN, history of CVA and other medical problems listed below from [facility] in [place] who presents with confusion since last evening. Staff reports finding patient confused and covered in feces and sent him in for further evaluation. Currently, patient is endorsing fatigue and generalized weakness as well as some suprapubic pain. Denies any fever, chills, lightheadedness, visual changes, chest pain, palpitations, shortness of breath, dysuria, diarrhea or constipation. History is somewhat limited due to patient's vascular dementia. No family or staff at bedside. Was recently admitted from February 08- for sepsis 2/2 UTI and acute kidney injury. Urine culture grew Corynebacterium. Blood cultures were negative. Patient was discharged back to [facility] with 4 days remaining of Augmentin and was also started on Flomax and Finasteride. Had a urine stafford catheter in place and was instructed to follow up with Dr. Charles next week. Patient afebrile with BP 102/67 and heart rate of 115. Found to have leukocytosis of 54K with initial lactic acid 5 and troponin of 0.340. Creatinine elevated at 2.8 (baseline ~1.2). Urinalysis with blood, leuk esterase and urine bacteria present. CT abdomen pelvis with prostamegaly with marked urinary bladder distention compatible with bladder outlet obstruction. Air is also noted within the nondependent urinary bladder suggestive of instrumentation versus gas forming organism. Also with evidence of resolving proctocolitis. Given 2.5 L IV fluid resuscitation in ED and started on empiric Zosyn and Vanc. Allergies Allergy/AdvReac Type Severity Reaction Status Date / Time olanzapine Allergy Mild "IT DOES Verified 02/19/19 12:05 NOT WORK" risperidone Allergy Unknown UNKNOWN Verified 02/19/19 12:05 Tricyclic Antidepressants Allergy Unknown . Uncoded 02/19/19 12:05 Flu Virus Vaccine AdvReac Unknown CAUSES Uncoded 02/19/19 12:05 PAIN AT INJECTION SITE Home Medications Home Medications Medication Instructions Recorded Confirmed Type Artificial Tears (PF) 1 drp OPB BID 11/22/18 02/19/19 History Calmoseptine 1 applic TOPICAL DAILY 11/22/18 02/19/19 History [place]'s wort 300 mg PO DAILY 11/22/18 02/19/19 History aspirin 81 mg PO DAILY 11/22/18 02/19/19 History benztropine 1 mg PO BID 11/22/18 02/19/19 History docusate sodium 100 mg PO BID 11/22/18 02/19/19 History fluphenazine decanoate 25 mg IM MONTHLY 11/22/18 02/19/19 History lorazepam 0.5 mg PO TID PRN 11/22/18 02/19/19 History memantine 10 mg PO BID 11/22/18 02/19/19 History mirtazapine 30 mg PO HS 11/22/18 02/19/19 History multivitamin 1 tab PO DAILY 11/22/18 02/19/19 History perphenazine 8 mg PO TID 11/22/18 02/19/19 History amlodipine 5 mg PO DAILY 02/08/19 02/19/19 History lisinopril 10 mg PO DAILY 02/08/19 02/19/19 History Lactobacillus acidoph-L.bulgar 4 tab PO QIDM 10 Days #40 tab 02/11/19 02/19/19 Rx [Floranex] finasteride [Proscar] 5 mg PO QAM 30 Days #30 tab 02/11/19 02/19/19 Rx tamsulosin 0.4 mg PO QAM 30 Days #30 cap 02/11/19 02/19/19 Rx Past Med/Surg History Medical History Dementia (Chronic) H/O: CVA (cerebrovascular accident) (Chronic) HTN (hypertension) (Chronic) Schizoaffective disorder (Chronic) Surgical History Hx of cataract surgery (Chronic) S/P tonsillectomy (Chronic) Family History Other Hypertension Social History Preferred Language: Portuguese Communication Ability: Impaired Data Technician Required: No Beliefs That Will Affect Care: None Current Living Situation: Personal Care Facility Current Living Situation Comment: [facility] Other Information That Helps Us Care for You: No Feels Safe at Home: Yes Safety Concerns: Feels Safe At This Time Smoking Status: Former smoker Hx Alcohol Use: No Hx Substance Use: No Review of Systems Review of Systems: At least ten systems reviewed and negative except as noted in the HPI. Physical Exam Physical Exam: General Appearance: WD/WN, vitals as above, NAD, sleeping intermittently but answers questions appropriately Head: normocephalic, atraumatic Eyes: normal inspection, PERRL, conjunctivae normal, anicteric sclerae ENT: external ear and nose normal, oropharynx dry mucous membranes , + upper lip hemangioma Neck: trachea midline, no thyromegaly normal visual inspection Respiratory: normal respiratory effort, lungs clear to auscultation, no wheeze, rales, rhonchi. Normal insp/exp effort, no accessory muscle use Cardiovascular: regular rate, rhythm, no murmur, normal peripheral pulses. Vessels: no JVD or carotid bruit Chest: normal inspection of chest Abdomen/GI: normal bowel sounds, soft, nontender, no hepatosplenomegaly : Stafford catheter draining reddish urine. Dried blood surrounding catheter insertion site at penis Extremities/Musculoskelatal: no cyanosis or clubbing, extremities motor strength 5/5 Neurologic: PERRL, EOMI, accommodation nl, no face palsy, no dysarthria CN's II-XI intact bilaterally and moves all extremities Psychiatric: A+O to person, place and time, not fully to situation. Euthymic affect Skin: no rashes, normal color, warm/dry Results & Data Vital Signs (Past 12 Hours) Vital Signs Temp Pulse Resp BP Pulse Ox 02/19/19 13:31 109 H 22 100 02/19/19 13:30 112 H 24 106/66 94 02/19/19 13:01 115 H 15 02/19/19 13:00 112 H 24 131/76 02/19/19 12:40 115 H 21 92 02/19/19 12:39 110 H 22 105/65 02/19/19 12:01 113 H 24 98 02/19/19 12:00 116 H 24 103/62 98 02/19/19 11:31 118 H 22 100 02/19/19 11:30 107 H 19 115/66 98 02/19/19 11:06 110 H 20 99 02/19/19 11:05 111 H 22 111/63 98 02/19/19 11:00 100 02/19/19 10:30 109 H 21 98 02/19/19 10:29 37.2 C 100 H 16 116/66 96 02/19/19 10:23 110 H 20 116/66 97 Laboratory Results Short CBC 02/19/19 02/19/19 02/19/19 Range/Units 11:15 11:15 12:12 WBC 54.25 H* (4.8-10.8) K/uL RBC 3.61 L (4.7-6.1) M/uL Hgb 10.8 L (14.0-18.0) g/dL Hct 32.4 L (42-52) % MCV 89.8 (80-100) fL MCH 29.9 (25-34) pg MCHC 33.3 (32-36) g/dL RDW Std Deviation 48.9 H (36.4-46.3) fL RDW Coeff of So 14.9 H (11.5-14.5) % Plt Count 292 (130-400) K/uL MPV 9.5 (7.4-10.4) fL Immature Gran % (Auto) 0.8 % Neut % (Auto) 94.8 % Lymph % (Auto) 1.0 % [place] % (Auto) 3.4 % Eos % (Auto) 0.0 % Baso % (Auto) 0.0 % Immature Gran # (Auto) 0.42 H (0.00-0.02) K/uL Neut # (Auto) 51.46 H (1.4-6.5) K/uL Lymph # (Auto) 0.52 L (1.2-3.4) K/uL [place] # (Auto) 1.83 H (0.11-0.59) K/uL Eos # (Auto) 0.00 (0-0.5) K/uL Baso # (Auto) 0.02 (0-0.2) K/uL Toxic Vacuolation 2+ Platelet Estimate Normal (Normal) Sodium 138 (136-145) mmol/L Potassium 4.6 (3.5-5.1) mmol/L Chloride 106 (98-107) mmol/L Carbon Dioxide 22 (21-32) mmol/L Anion Gap 10.0 (3-11) BUN 31 H (7-18) mg/dl Creatinine 2.80 H (0.6-1.4) mg/dl Est Cr Clr Drug Dosing 21.0 ml/min Est GFR ( Amer) 24.0 Est GFR (Non-Af Amer) 20.7 BUN/Creatinine Ratio 11.0 (10-20) Glucose 79 (70-99) mg/dl Lactate 5.0 H* (0.4-2.0) mmol/L Calcium 8.8 (8.5-10.1) mg/dl Total Bilirubin 0.5 (0.2-1) mg/dl AST 187 H (15-37) U/L ALT 51 (12-78) U/L Alkaline Phosphatase 59 (45-117) U/L Troponin I 0.340 H* (0-0.045) ng/ml Total Protein 6.9 (6.4-8.2) gm/dl Albumin 2.9 L (3.4-5.0) gm/dl Globulin 4.0 (2.5-4.0) gm/dl Albumin/Globulin Ratio 0.7 L (0.9-2) TSH 1.690 (0.300-4.500) uIu/ml Urine Color Urine Appearance (Clear) Urine pH (4.5-7.5) Ur Specific Phillips (1.000-1.030) Urine Protein (Negative) Urine Glucose (UA) (Negative) Urine Ketones (Negative) Urine Blood (Negative) Urine Nitrite (Negative) Urine Bilirubin (Negative) Urine Urobilinogen (Negative) Ur Leukocyte Esterase (Negative) Urine RBC (0-4) /hpf Urine WBC (0-5) /hpf Ur Epithelial Cells (0-5) /lpf Calcium Oxalate Crystal (None Prsent) Urine Bacteria (Negative) 02/19/19 02/19/19 Range/Units 13:30 14:08 WBC (4.8-10.8) K/uL RBC (4.7-6.1) M/uL Hgb (14.0-18.0) g/dL Hct (42-52) % MCV (80-100) fL MCH (25-34) pg MCHC (32-36) g/dL RDW Std Deviation (36.4-46.3) fL RDW Coeff of So (11.5-14.5) % Plt Count (130-400) K/uL MPV (7.4-10.4) fL Immature Gran % (Auto) % Neut % (Auto) % Lymph % (Auto) % [place] % (Auto) % Eos % (Auto) % Baso % (Auto) % Immature Gran # (Auto) (0.00-0.02) K/uL Neut # (Auto) (1.4-6.5) K/uL Lymph # (Auto) (1.2-3.4) K/uL [place] # (Auto) (0.11-0.59) K/uL Eos # (Auto) (0-0.5) K/uL Baso # (Auto) (0-0.2) K/uL Toxic Vacuolation Platelet Estimate (Normal) Sodium (136-145) mmol/L Potassium (3.5-5.1) mmol/L Chloride (98-107) mmol/L Carbon Dioxide (21-32) mmol/L Anion Gap (3-11) BUN (7-18) mg/dl Creatinine (0.6-1.4) mg/dl Est Cr Clr Drug Dosing ml/min Est GFR ( Amer) Est GFR (Non-Af Amer) BUN/Creatinine Ratio (10-20) Glucose (70-99) mg/dl Lactate 3.4 H* (0.4-2.0) mmol/L Calcium (8.5-10.1) mg/dl Total Bilirubin (0.2-1) mg/dl AST (15-37) U/L ALT (12-78) U/L Alkaline Phosphatase (45-117) U/L Troponin I (0-0.045) ng/ml Total Protein (6.4-8.2) gm/dl Albumin (3.4-5.0) gm/dl Globulin (2.5-4.0) gm/dl Albumin/Globulin Ratio (0.9-2) TSH (0.300-4.500) uIu/ml Urine Color Red Urine Appearance Cloudy A (Clear) Urine pH 7.0 (4.5-7.5) Ur Specific [place] 1.015 (1.000-1.030) Urine Protein 2+ H (Negative) Urine Glucose (UA) Negative (Negative) Urine Ketones Negative (Negative) Urine Blood 3+ H (Negative) Urine Nitrite Negative (Negative) Urine Bilirubin Negative (Negative) Urine Urobilinogen Negative (Negative) Ur Leukocyte Esterase 2+ H (Negative) Urine RBC >30 H (0-4) /hpf Urine WBC >30 H (0-5) /hpf Ur Epithelial Cells 5-10 H (0-5) /lpf Calcium Oxalate Crystal Present A (None Prsent) Urine Bacteria 3+ H (Negative) BMP 02/19/19 11:15 Sodium 138 Potassium 4.6 Chloride 106 Carbon Dioxide 22 BUN 31 H Creatinine 2.80 H Glucose 79 Calcium 8.8 Cardiac Enzymes 02/19/19 Range/Units 11:15 Troponin I 0.340 H* (0-0.045) ng/ml Liver Function 02/19/19 Range/Units 11:15 Total Bilirubin 0.5 (0.2-1) mg/dl AST 187 H (15-37) U/L ALT 51 (12-78) U/L Alkaline Phosphatase 59 (45-117) U/L Albumin 2.9 L (3.4-5.0) gm/dl Urine 02/19/19 Range/Units 13:30 Urine Color Red Urine Appearance Cloudy A (Clear) Urine pH 7.0 (4.5-7.5) Ur Specific [place] 1.015 (1.000-1.030) Urine Protein 2+ H (Negative) Urine Glucose (UA) Negative (Negative) Diagnostic Findings Head CT: IMPRESSION: Motion degraded exam without acute intracranial abnormality identified. CXR: IMPRESSION: 1. Emphysema without acute process. 2. Previously scribed pulmonary nodules as described on chest CT dated 02/08/2019 are not identified by radiography. Shoulder XR: IMPRESSION: No acute fracture or dislocation. CT abd/pelvis: IMPRESSION: 1. Prostamegaly with marked urinary bladder distention compatible with bladder outlet obstruction.. Air is also noted within the nondependent urinary bladder suggestive of instrumentation versus gas forming organism. Correlate with urinalysis. 2. Decreased wall thickening of the distal sigmoid colon and rectum suggests resolving proctocolitis. 3. Multiple fluid-filled loops of small bowel with mildly dilated loops in the left lower quadrant abdomen are suggestive of enteritis or ileus. No definite bowel obstruction identified. 4. Cholelithiasis with gallbladder distention. No CT evidence of acute cholecystitis. 5. Normal appendix. 6. Previously noted bibasilar pulmonary nodules and left renal lesions are better seen on comparison exam. 7. Additional findings as above. ECG Rhythm: sinus tachycardia Findings: + left axis deviation Change: no significant change Supervising Physician Co-Signing Physician Notes Attending addendum: The patient was seen and examined in the emergency room He is a 78yo M from with a PMH of vascular dementia, schizoaffective disorder, HTN, history of CVA and other medical problems in H&P from [facility] presents with confusion since last evening and was found to have sepsis, complicated UTI with indwelling Stafford and acute kidney injury. 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, awake and oriented Admission labs and imaging studies reviewed Has complicated UTI with very high white count and COLT Troponin elevation is due to sepsis and COLT doubt any ACS Has been started on intravenous vancomycin and Zosyn Agree with assessment and plan as outlined above by SAMMY Alfred Dr (1) Dysphagia Dysphagia type: unspecified Qualified Code(s): R13.10 - Dysphagia, unspecified (2) Schizoaffective disorder Schizoaffective disorder type: unspecified Qualified Code(s): F25.9 - Schizoaffective disorder, unspecified (3) Sepsis Sepsis acute organ dysfunction status: unspecified Sepsis type: sepsis due to unspecified organism Qualified Code(s): A41.9 - Sepsis, unspecified organism
[2019-02-19] MEDS ORDERED: ONDANSETRON INJ 2 MG/ML 2 ML VIAL IV PRN (15:13)
[2019-02-19] MEDS ORDERED: POLYETHYLENE (MIRALAX) 17 GM PACK PO PRN (15:13)
[2019-02-19] MEDS ORDERED: LORazepam 0.5 MG TAB PO PRN (15:13)
--- NOTE | 2019-02-19 16:21 | Pharmacy Report ---
Pharmacy Abx Initial Consult - Date of Service February 19, 2019 - Pharmacy Dosing Scope Date of Consult: 02/19/19 Consultation requested by: Lara Burdick PA-C Pharmacy is consulted to initiate Vancomycin and Zosyn IV dosing therapy, order appropriate labs and adjust drug dose/frequency. - Subjective The patient is a 78 year old M admitted on 02/19/19 14:28. - Objective Height: 5 ft 8 in Weight: 79.4 kg Vital Signs (Past 12hrs): Vital Signs Temp Pulse Resp BP Pulse Ox 02/19/19 14:31 106 H 23 02/19/19 14:30 108 H 22 102/67 02/19/19 14:02 106 H 21 100 02/19/19 14:01 107 H 27 H 106/59 L 100 02/19/19 14:00 104 H 21 92 02/19/19 13:48 106 H 24 100/61 93 02/19/19 13:31 109 H 22 100 02/19/19 13:30 112 H 24 106/66 94 02/19/19 13:01 115 H 15 02/19/19 13:00 112 H 24 131/76 02/19/19 12:40 115 H 21 92 02/19/19 12:39 110 H 22 105/65 02/19/19 12:01 113 H 24 98 02/19/19 12:00 116 H 24 103/62 98 02/19/19 11:31 118 H 22 100 02/19/19 11:30 107 H 19 115/66 98 02/19/19 11:06 110 H 20 99 02/19/19 11:05 111 H 22 111/63 98 02/19/19 11:00 100 02/19/19 10:30 109 H 21 98 02/19/19 10:29 37.2 C 100 H 16 116/66 96 02/19/19 10:23 110 H 20 116/66 97 Lab Results (24hrs): Laboratory Tests (24 Hours) 02/19/19 02/19/19 11:15 11:15 WBC 54.25 H* Neut # (Auto) 51.46 H Creatinine 2.80 H Est Cr Clr Drug Dosing 21.0 Micro Results: 02/19/19 13:30 Urine Culture - Pending Urine,Straight Cath 02/19/19 12:10 Aerobic Blood Culture - Pending Blood Anaerobic Blood Culture - Pending 02/19/19 11:15 Aerobic Blood Culture - Pending Blood Anaerobic Blood Culture - Pending - Risk Factors for Resistance * Resident in a halfway or extended-care facility - [facility] * Hospitalization for 48 hours or more within the past 90 days: 11/22-11/24 & 02/08-02/11 * Antimicrobial use within the last 90 days - Zosyn, Rocephin, Augmentin - Assessment & Plan Assessment 78 year old M admitted on 02/19/19 secondary to confusion - PMHx significant for multiple hospitalizations lasting > 48 hrs in the past 90 days, CKD III, and chronic indwelling stafford - Upon admission, patient was found to have COLT, Sepsis, and Complicated UTI - UA shows 2+ leukocyte esterase, > 30 WBCs, 3+ bacteria, nitrite [place] [address], SCr 2.8 (baseline 1.4), Lactic acid 5.0 --> 3.4 - If patient's renal function worsens further, will need to consider different antibiotic combination given nephrotoxic potential of vanc + zosyn - Vancomycin and Zosyn are both ordered empiricallly and will automatically discontinue after 48 hours of therapy Plan IV Vancomycin and Zosyn for empiric treatment of UTI Vancomycin IV * Estimated PK Parameters: Vd 0.6 L/kg, Dajuan 0.022 hr-1, t1/2 32 hrs * Loading dose: 1500 mg (19 mg/kg) * Given patient's COLT and current estimation of half-life, do not think patient will need dosed again until at least 24 hours. With that being said, I will order a random vancomycin level with AM labs tomorrow to assess patient's clearance and need for another dose. * Random level ordered for 02/20/19 with AM Labs Piperacillin/tazobactam * 4.5 g bolus administered over 30 minutes, then 3.375 g IV extended infusion every 8 hours for CrCl greater than 20 mL/min Pharmacy will continue to follow and will adjust dose/frequency as necessary. Thank you.
[2019-02-19] MEDS: SODIUM CHLORIDE 0.9% 1000ML 1,000 ML IV SCH (17:20)
[2019-02-19] MEDS: LACTOBACILLUS ACIDOPHILUS (FLORANEX) TAB PO SCH ×2 (17:20→20:03)
[2019-02-19] MEDS: PIPERACILLIN/TAZOBACTAM 3.375 GM in DEXTROSE 5% 100 ML IV SCH (17:24)
--- NOTE | 2019-02-19 17:50 | Emergency Department Note ---
Entered by Julieta Silva acting as a scribe for Ean Kim M.D. History of Present Illness General Chief complaint: Illness Time Seen by Provider: 02/19/19 10:21 Source: patient and other (nurse) Mode of arrival: EMS Limitations: altered mental status History of Present Illness Provider complaint: Altered mental status Onset (ago): hour(s) (today) Location: head Pain Consistency: + other (worsening) Quality: + other (altered mental status) Associated symptoms: + other (Additional symptoms: hematuria, back pain, penis pain) Treatments prior to arrival: none The patient is a 78 year old male with a history of dementia, CVA, hypertension, and schizoaffective disorder who presents to the Emergency Room with complaints of a worsening altered mental status starting today. Per nurse, the patient is from [facility] and was noted to have an altered mental status. She states that the patient was also found to have blood in his Guy catheter and an abrasion to his right shoulder. The patient currently complains of back pain and penis pain. HPI limited secondary to altered mental status. Home Medications Home Medications Medication Instructions Recorded Confirmed Type Artificial Tears (PF) 1 drp OPB BID 11/22/18 02/19/19 History Calmoseptine 1 applic TOPICAL DAILY 11/22/18 02/19/19 History [employer]'s wort 300 mg PO DAILY 11/22/18 02/19/19 History aspirin 81 mg PO DAILY 11/22/18 02/19/19 History benztropine 1 mg PO BID 11/22/18 02/19/19 History docusate sodium 100 mg PO BID 11/22/18 02/19/19 History fluphenazine decanoate 25 mg IM MONTHLY 11/22/18 02/19/19 History lorazepam 0.5 mg PO TID PRN 11/22/18 02/19/19 History memantine 10 mg PO BID 11/22/18 02/19/19 History mirtazapine 30 mg PO HS 11/22/18 02/19/19 History multivitamin 1 tab PO DAILY 11/22/18 02/19/19 History perphenazine 8 mg PO TID 11/22/18 02/19/19 History amlodipine 5 mg PO DAILY 02/08/19 02/19/19 History lisinopril 10 mg PO DAILY 02/08/19 02/19/19 History Lactobacillus acidoph-L.bulgar 4 tab PO QIDM 10 Days #40 tab 02/11/19 02/19/19 Rx [Floranex] finasteride [Proscar] 5 mg PO QAM 30 Days #30 tab 02/11/19 02/19/19 Rx tamsulosin 0.4 mg PO QAM 30 Days #30 cap 02/11/19 02/19/19 Rx Allergies Allergy/AdvReac Type Severity Reaction Status Date / Time olanzapine Allergy Mild "IT DOES Verified 02/19/19 12:05 NOT WORK" risperidone Allergy Unknown UNKNOWN Verified 02/19/19 12:05 Tricyclic Antidepressants Allergy Unknown . Uncoded 02/19/19 12:05 Flu Virus Vaccine AdvReac Unknown CAUSES Uncoded 02/19/19 12:05 PAIN AT INJECTION SITE Past Med/Surg History Medical History Dementia (Chronic) H/O: CVA (cerebrovascular accident) (Chronic) HTN (hypertension) (Chronic) Schizoaffective disorder (Chronic) Surgical History Hx of cataract surgery (Chronic) S/P tonsillectomy (Chronic) Family History Other Hypertension Social History Preferred Language: [place] Communication Ability: Impaired Hand Cloth Folder Required: No Beliefs That Will Affect Care: None Current Living Situation: Personal Care Facility Current Living Situation Comment: [facility] Other Information That Helps Us Care for You: No Feels Safe at Home: Yes Safety Concerns: Feels Safe At This Time Smoking Status: Former smoker Hx Alcohol Use: No Hx Substance Use: No Review of Systems See HPI for pertinent positives & negatives. and A total of 10 systems reviewed and were otherwise negative Physical Exam Vital Signs Vital Signs - 24 hr 02/19/19 10:23 02/19/19 10:29 02/19/19 10:30 Temperature 37.2 C Temperature Source Oral Pulse Rate 110 H 100 H 109 H Pulse Rate from SpO2 Sensor 106 H 109 H Respiratory Rate 20 16 21 Blood Pressure 116/66 116/66 Blood Pressure Mean 79 82 Pulse Oximetry 97 96 98 Oxygen Delivery Method Room Air Sepsis Recent Fever Within 48 Hours No Sepsis New/Unexplained Change in Mental Status Yes Sepsis Action Taken by Nursing No Action Required 02/19/19 11:00 02/19/19 11:05 02/19/19 11:06 Temperature Temperature Source Pulse Rate 111 H 110 H Pulse Rate from SpO2 Sensor 107 H 113 H 107 H Respiratory Rate 22 20 Blood Pressure 111/63 Blood Pressure Mean 74 Pulse Oximetry 100 98 99 Oxygen Delivery Method Sepsis Recent Fever Within 48 Hours Sepsis New/Unexplained Change in Mental Status Sepsis Action Taken by Nursing 02/19/19 11:30 02/19/19 11:31 02/19/19 12:00 Temperature Temperature Source Pulse Rate 107 H 118 H 116 H Pulse Rate from SpO2 Sensor 108 H 118 H 112 H Respiratory Rate 19 22 24 Blood Pressure 115/66 103/62 Blood Pressure Mean 75 81 Pulse Oximetry 98 100 98 Oxygen Delivery Method Sepsis Recent Fever Within 48 Hours Sepsis New/Unexplained Change in Mental Status Sepsis Action Taken by Nursing 02/19/19 12:01 02/19/19 12:39 02/19/19 12:40 Temperature Temperature Source Pulse Rate 113 H 110 H 115 H Pulse Rate from SpO2 Sensor 112 H Respiratory Rate 24 22 21 Blood Pressure 105/65 Blood Pressure Mean 74 Pulse Oximetry 98 92 Oxygen Delivery Method Sepsis Recent Fever Within 48 Hours Sepsis New/Unexplained Change in Mental Status Sepsis Action Taken by Nursing 02/19/19 13:00 02/19/19 13:01 02/19/19 13:30 Temperature Temperature Source Pulse Rate 112 H 115 H 112 H Pulse Rate from SpO2 Sensor 116 H 115 H Respiratory Rate 24 15 24 Blood Pressure 131/76 106/66 Blood Pressure Mean 93 74 Pulse Oximetry 94 Oxygen Delivery Method Sepsis Recent Fever Within 48 Hours Sepsis New/Unexplained Change in Mental Status Sepsis Action Taken by Nursing 02/19/19 13:31 02/19/19 13:48 02/19/19 14:00 Temperature Temperature Source Pulse Rate 109 H 106 H 104 H Pulse Rate from SpO2 Sensor 110 H 105 H 101 H Respiratory Rate 22 24 21 Blood Pressure 100/61 Blood Pressure Mean 72 Pulse Oximetry 100 93 92 Oxygen Delivery Method Sepsis Recent Fever Within 48 Hours Sepsis New/Unexplained Change in Mental Status Sepsis Action Taken by Nursing 02/19/19 14:01 02/19/19 14:02 Temperature Temperature Source Pulse Rate 107 H 106 H Pulse Rate from SpO2 Sensor 104 H 105 H Respiratory Rate 27 H 21 Blood Pressure 106/59 L Blood Pressure Mean 74 Pulse Oximetry 100 100 Oxygen Delivery Method Sepsis Recent Fever Within 48 Hours Sepsis New/Unexplained Change in Mental Status Sepsis Action Taken by Nursing GENERAL: Awake, alert, weak-appearing, in no distress HENT: Normocephalic, atraumatic. Right upper lip swelling. EYES: Normal conjunctiva. Sclera non-icteric. NECK: Supple. No nuchal rigidity. RESPIRATORY: Clear to auscultation. Normal respiratory effort. CARDIAC: Tachycardic rate. Normal rhythm. Extremities warm and well perfused. GI: Soft, non-distended. Mild lower abdominal tenderness and fullness : Guy catheter in place with minimal drainage MUSCULOSKELETAL: Atraumatic. Chest examination reveals no tenderness. LOWER EXTREMITIES: Calves are equal size bilaterally and non-tender. No edema NEURO: No sensory or motor deficits noted. No facial droop. No slurred speech. Patient somewhat slow to answer some questions and occasionally confused. Will answer yes and no questions. SKIN: Warm and dry. No rash or jaundice noted. Course Course 1023: The patient was evaluated in room C6, and a complete history and physical examination were performed. 1325: I reviewed the patient's case with Ottoniel Miles PA-C. Dr. Joseph will evaluate the patient for further management. Consultations Consultation #1: I reviewed the patient's case with Ottoniel Miles PA-C. Dr. Joseph will evaluate the patient for further management. Time: 13:25 Administered Medications Piperacillin Sod/Tazobactam (Sod 3.375 gm/ Dextrose) 115 mls @ 28.75 mls/hr IV Q8H SHERIE; Protocol Stop: 02/21/19 17:59 Last Admin: 02/19/19 17:24 Dose: 28.8 mls/hr Documented by: [id number] Sodium Chloride (Nss 1000ml) 1,000 mls @ 100 mls/hr IV .Q10H SHERIE Stop: 02/20/19 22:29 Last Admin: 02/19/19 17:20 Dose: 100 mls/hr Documented by: [id number] Lactobacillus Acidophilus (Floranex) 4 tab PO QIDM SHERIE Stop: 03/21/19 16:59 Last Admin: 02/19/19 17:20 Dose: Not Given Documented by: [id number] Discontinued Medications Lactated Ringer's (Lr) 2,000 mls @ 999 mls/hr IV .Q2H1M ONE Stop: 02/19/19 13:56 Last Infusion: 02/19/19 14:09 Dose: 0 mls/hr Documented by: [id number] Admin: 02/19/19 12:07 Dose: 999 mls/hr Documented by: [id number] Piperacillin Sod/Tazobactam Sod (Zosyn) 4.5 gm in 120 mls @ 240 mls/hr IV NOW ONE Stop: 02/19/19 12:26 Last Infusion: 02/19/19 12:44 Dose: 0 mls/hr Documented by: [id number] Admin: 02/19/19 12:14 Dose: 240 mls/hr Documented by: [id number] Vancomycin HCl 1,500 mg/ (Sodium Chloride) 530 mls @ 200 mls/hr IV NOW ONE Stop: 02/19/19 14:35 Last Infusion: 02/19/19 15:21 Dose: 0 mls/hr Documented by: [id number] Admin: 02/19/19 12:41 Dose: 200 mls/hr Documented by: [id number] Sodium Chloride (Nss 1000ml) 500 mls @ 999 mls/hr IV .Q31M ONE Stop: 02/19/19 12:33 Last Infusion: 02/19/19 12:44 Dose: 0 mls/hr Documented by: [id number] Admin: 02/19/19 12:08 Dose: 999 mls/hr Documented by: [id number] Sodium Chloride (Nss 1000ml) 500 mls @ 999 mls/hr IV .Q31M ONE Stop: 02/19/19 14:35 Last Infusion: 02/19/19 14:48 Dose: 0 mls/hr Documented by: [id number] Admin: 02/19/19 14:16 Dose: 999 mls/hr Documented by: [id number] Critical Care Time Critical Care Time: Yes Total Critical Care Time: 48 I have personally spent 48 minutes of critical care time in the direct management of this patient. This includes bedside care, interpretation of diag nostic studies, and testing, discussion with consultants, patient, and family members, and other required patient management activities. This 48 minutes is in excess of all separately billable procedures. Medical Decision Making Differential Diagnosis Differential diagnosis: Etiologies such as metabolic, infection, hypo/hyperglycemia, electrolyte abnormalities, cardiac sources, intracerebral event, toxicologic, neurologic, as well as others were entertained. Medical Records Attestation: I reviewed the patient's medical records. Home Medications Current Medication List: was personally reviewed by me Laboratory Data Attestation: I reviewed the patient's lab results. Result diagrams: 02/19/19 11:15 02/19/19 11:15 Lab Results 02/19/19 02/19/19 02/19/19 Range/Units 11:15 11:15 12:12 WBC 54.25 H* (4.8-10.8) K/uL RBC 3.61 L (4.7-6.1) M/uL Hgb 10.8 L (14.0-18.0) g/dL Hct 32.4 L (42-52) % MCV 89.8 (80-100) fL MCH 29.9 (25-34) pg MCHC 33.3 (32-36) g/dL RDW Std Deviation 48.9 H (36.4-46.3) fL RDW Coeff of So 14.9 H (11.5-14.5) % Plt Count 292 (130-400) K/uL MPV 9.5 (7.4-10.4) fL Immature Gran % (Auto) 0.8 % Neut % (Auto) 94.8 % Lymph % (Auto) 1.0 % [place] % (Auto) 3.4 % Eos % (Auto) 0.0 % Baso % (Auto) 0.0 % Immature Gran # (Auto) 0.42 H (0.00-0.02) K/uL Neut # (Auto) 51.46 H (1.4-6.5) K/uL Lymph # (Auto) 0.52 L (1.2-3.4) K/uL [place] # (Auto) 1.83 H (0.11-0.59) K/uL Eos # (Auto) 0.00 (0-0.5) K/uL Baso # (Auto) 0.02 (0-0.2) K/uL Toxic Vacuolation 2+ Platelet Estimate Normal (Normal) Sodium 138 (136-145) mmol/L Potassium 4.6 (3.5-5.1) mmol/L Chloride 106 (98-107) mmol/L Carbon Dioxide 22 (21-32) mmol/L Anion Gap 10.0 (3-11) BUN 31 H (7-18) mg/dl Creatinine 2.80 H (0.6-1.4) mg/dl Est Cr Clr Drug Dosing 21.0 ml/min Est GFR ( Amer) 24.0 Est GFR (Non-Af Amer) 20.7 BUN/Creatinine Ratio 11.0 (10-20) Glucose 79 (70-99) mg/dl Lactate 5.0 H* (0.4-2.0) mmol/L Calcium 8.8 (8.5-10.1) mg/dl Total Bilirubin 0.5 (0.2-1) mg/dl AST 187 H (15-37) U/L ALT 51 (12-78) U/L Alkaline Phosphatase 59 (45-117) U/L Troponin I 0.340 H* (0-0.045) ng/ml Total Protein 6.9 (6.4-8.2) gm/dl Albumin 2.9 L (3.4-5.0) gm/dl Globulin 4.0 (2.5-4.0) gm/dl Albumin/Globulin Ratio 0.7 L (0.9-2) TSH 1.690 (0.300-4.500) uIu/ml Urine Color Urine Appearance (Clear) Urine pH (4.5-7.5) Ur Specific [place] (1.000-1.030) Urine Protein (Negative) Urine Glucose (UA) (Negative) Urine Ketones (Negative) Urine Blood (Negative) Urine Nitrite (Negative) Urine Bilirubin (Negative) Urine Urobilinogen (Negative) Ur Leukocyte Esterase (Negative) Urine RBC (0-4) /hpf Urine WBC (0-5) /hpf Ur Epithelial Cells (0-5) /lpf Calcium Oxalate Crystal (None Prsent) Urine Bacteria (Negative) 02/19/19 02/19/19 Range/Units 13:30 14:08 WBC (4.8-10.8) K/uL RBC (4.7-6.1) M/uL Hgb (14.0-18.0) g/dL Hct (42-52) % MCV (80-100) fL MCH (25-34) pg MCHC (32-36) g/dL RDW Std Deviation (36.4-46.3) fL RDW Coeff of So (11.5-14.5) % Plt Count (130-400) K/uL MPV (7.4-10.4) fL Immature Gran % (Auto) % Neut % (Auto) % Lymph % (Auto) % [place] % (Auto) % Eos % (Auto) % Baso % (Auto) % Immature Gran # (Auto) (0.00-0.02) K/uL Neut # (Auto) (1.4-6.5) K/uL Lymph # (Auto) (1.2-3.4) K/uL [place] # (Auto) (0.11-0.59) K/uL Eos # (Auto) (0-0.5) K/uL Baso # (Auto) (0-0.2) K/uL Toxic Vacuolation Platelet Estimate (Normal) Sodium (136-145) mmol/L Potassium (3.5-5.1) mmol/L Chloride (98-107) mmol/L Carbon Dioxide (21-32) mmol/L Anion Gap (3-11) BUN (7-18) mg/dl Creatinine (0.6-1.4) mg/dl Est Cr Clr Drug Dosing ml/min Est GFR ( Amer) Est GFR (Non-Af Amer) BUN/Creatinine Ratio (10-20) Glucose (70-99) mg/dl Lactate 3.4 H* (0.4-2.0) mmol/L Calcium (8.5-10.1) mg/dl Total Bilirubin (0.2-1) mg/dl AST (15-37) U/L ALT (12-78) U/L Alkaline Phosphatase (45-117) U/L Troponin I (0-0.045) ng/ml Total Protein (6.4-8.2) gm/dl Albumin (3.4-5.0) gm/dl Globulin (2.5-4.0) gm/dl Albumin/Globulin Ratio (0.9-2) TSH (0.300-4.500) uIu/ml Urine Color Red Urine Appearance Cloudy A (Clear) Urine pH 7.0 (4.5-7.5) Ur Specific [place] 1.015 (1.000-1.030) Urine Protein 2+ H (Negative) Urine Glucose (UA) Negative (Negative) Urine Ketones Negative (Negative) Urine Blood 3+ H (Negative) Urine Nitrite Negative (Negative) Urine Bilirubin Negative (Negative) Urine Urobilinogen Negative (Negative) Ur Leukocyte Esterase 2+ H (Negative) Urine RBC >30 H (0-4) /hpf Urine WBC >30 H (0-5) /hpf Ur Epithelial Cells 5-10 H (0-5) /lpf Calcium Oxalate Crystal Present A (None Prsent) Urine Bacteria 3+ H (Negative) Imaging Data Radiologist's Impression: Radiology results as stated below per my review and the radiologist's interpretation: XR chest 1V portable HISTORY: 78 years-old Male weakness acute weakness COMPARISON: Chest CT 02/08/2019, chest radiograph 11/22/2018 TECHNIQUE: Portable AP view of the chest FINDINGS: Cardiac silhouette is mildly enlarged. Emphysema with mild chronic interstitial coarsening. Previously noted spiculated 10 mm nodule right lower lobe is not identified. No pneumothorax, pleural effusion or overt pulmonary edema. Degenerative changes of the shoulders and spine. Calcified plaque of the thoracic aortic arch. IMPRESSION: 1. Emphysema without acute process. 2. Previously scribed pulmonary nodules as described on chest CT dated 02/08/2019 are not identified by radiography. The above report was generated using voice recognition software. It may contain grammatical, syntax or spelling errors. Electronically signed by: Ezekiel Horner M.D. 02/19/2019 11:07 AM XR shoulder RT min 2V routine HISTORY: 78 years-old Male ?fall, erythema Lateral R shoulder acute right-sided shoulder pain status post fall COMPARISON: Chest radiograph of same day at 11/22/2018 TECHNIQUE: 2 views of the right shoulder FINDINGS: Mild to moderate glenohumeral with moderate AC joint degenerative change. Mild lateral soft tissue swelling. No acute fracture, dislocation or opaque foreign body. Arterial calcifications are noted. Imaged lung raymond appear clear. 10 mm sclerotic focus projects over the anterolateral right third rib. IMPRESSION: No acute fracture or dislocation. The above report was generated using voice recognition software. It may contain grammatical, syntax or spelling errors. Electronically signed by: Ezekiel Horner M.D. 02/19/2019 11:[address] head/brain wo con CLINICAL HISTORY: 78 years-old Male with weakness. Acute weakness TECHNIQUE: Multiple axial CT images of the head were obtained without contrast. A dose lowering technique was utilized adhering to the principles of ALARA. COMPARISON: Head CT 02/08/2019. FINDINGS: Motion degraded exam. No acute intracranial hemorrhage, midline shift, intracranial mass, hydrocephalus, territorial ischemia or abnormal extra-axial collection. Age-related involutional changes. Patchy white matter hypodensities suggest chronic microvascular ischemic disease. Cerebral vascular calcifications also noted. The calvarium is intact. Small right maxillary sinus air-fluid level suggesting acute sinusitis. Trace left mastoid effusion. Right mastoid air cells are clear. No acute calvarial fracture. Soft tissues are unremarkable. Prior bilateral cataract repair. IMPRESSION: Motion degraded exam without acute intracranial abnormality identified. The above report was generated using voice recognition software. It may contain grammatical, syntax or spelling errors. Electronically signed by: Ezekiel Horner M.D. 02/19/2019 12:38 PM [address] AND PELVIS CT WITHOUT CONTRAST CT DOSE: 1658.06 mGy.cm HISTORY: Acute generalized abdominal pain abd pain, infection? TECHNIQUE: Multiaxial CT images of the abdomen and pelvis were performed without contrast. A dose lowering technique was utilized adhering to the principles of ALARA. COMPARISON STUDY: CT abdomen and pelvis 02/08/2019 FINDINGS: Motion limits evaluation of the lung bases. Mild bibasilar atelectasis with pulmonary nodules redemonstrated measuring up to 10 mm within the right lower lobe, better seen on comparison chest CT. Study is mildly motion degraded. Exam is also limited secondary to positioning of the patient's upper extremities. There is no pneumatosis or pneumoperitoneum. The imaged inferior cardiac chambers are moderately enlarged. Coronary arterial calcifications are noted. Moderate gallbladder distention with cholelithiasis. No definite evidence of acute cholecystitis or biliary ductal dilation. Suggestion of mild hepatic steatosis. The unenhanced liver otherwise appears unremarkable. The spleen, pancreas and right adrenal gland are unremarkable. Unchanged 2.5 cm left adrenal gland adenoma. Renal vascular calcifications are noted bilaterally. Punctate nonobstructing calculus of the inferior pole right kidney. Mild bilateral pelvocaliectasis with mild prominence of the bilateral ureters. Marked urinary bladder distention is up to 20 cm in length. Air is also noted within the nondependent urinary bladder lumen. The previously described indeterminate left renal lesions are better seen on comparison contrast-enhanced exam. Prostamegaly. Extensive calcified plaque of the abdominal aorta with mild fusiform infrarenal abdominal aortic aneurysm, 3.1 x 2.6 cm. There is no adenopathy. Mild nonspecific wall thickening of the distal esophagus. Moderate fecal retention of the rectum. There is decreased wall thickening of the distal sigmoid and rectum. No bowel obstruction identified. Air and fluid-filled mildly dilated loops of small bowel within the left lower quadrant abdomen measure up to approximately 3.2 cm transversely. Nondilated fluid-filled loops of small bowel also noted within the abdominal right lower quadrant. Noninflamed appe ndix. Mild generalized mesenteric and body wall edema. Degenerative changes of the spine, pelvis and hips. Healed remote left-sided rib fractures. IMPRESSION: 1. Prostamegaly with marked urinary bladder distention compatible with bladder outlet obstruction.. Air is also noted within the nondependent urinary bladder suggestive of instrumentation versus gas forming organism. Correlate with urina lysis. 2. Decreased wall thickening of the distal sigmoid colon and rectum suggests resolving proctocolitis. 3. Multiple fluid-filled loops of small bowel with mildly dilated loops in the left lower quadrant abdomen are suggestive of enteritis or ileus. No definite bowel obstruction identified. 4. Cholelithiasis with gallbladder distention. No CT evidence of acute cholecystitis. 5. Normal appendix. 6. Previously noted bibasilar pulmonary nodules and left renal lesions are better seen on comparison exam. 7. Additional findings as above. Electronically signed by: Ezekiel Horner M.D. 02/19/2019 12:55 PM ECG Data Attestation: I personally reviewed and interpreted this ECG as follows: Indication: + altered mental status Rate (beats per minute): 108 Rhythm: + sinus tachycardia ECG Intervals/blocks: + Normal QT (normal QTc) ECG [place]: + Left axis deviation ECG ST segments: no ST elevation ECG Findings: no PVCs Blood Pressure Blood Pressure Findings: Normal blood pressure Head Trauma GCS Score: 14 MDM Narrative Patient is a 78-year-old gentleman history of pneumonia, CVA, schizoaffective disorder, hypertension, dementia presenting today reported with worsening confusion. Seen here just under 2 weeks ago for UTI with sepsis. Completed a course of antibiotics. EMS reports the patient started to get a little bit more confused yesterday but was worse today per staff at the facility. No fevers reported. Patient himself endorses a little bit of back pain and lower a bdominal pain and pain in his genitals. There is report of some slight blood in his Guy catheter. Has a resolving bruise on his left face near the eye and some erythema over the right shoulder. No clear trauma history is reported however. With these findings however in his confusion imaging was obtained. Patient's daughter waxes and wanes and will answer yes and no question but it is difficult to get a very clear history from him and he is at times a bit confused. Lab work was sent to look for possible metabolic or infectious pathology could be causing his symptoms. With his history of urinary infection some concern for this. Patient's lactate was found to be elevated. Evidence of acute kidney injury. Still afebrile here but tachycardic. Laboratory studies show significant leukocytosis. Code sepsis initiated. Broad-spectrum antibiotics ordered. Likely some demand ischemia but no significant EKG changes however there is elevated troponin. IV fluid resuscitation ordered. Chest x- ray without evidence of pneumonia. Patient was evidence of urinary retention and urinary infection. Again received vancomycin and Zosyn as well as IV fluids. Lactate improving on repeat. Patient requires admission. Appears more confused than when I saw him several weeks ago likely related to sepsis from urinary source. Impression & Plan Sepsis, Acute kidney injury, Acute UTI, Urinary retention, Elevated troponin Discharge Plan Visit Data *Final* Discharge Date/Time: 02/19/19 14:57 Chief Complaint: Illness ED Provider: Ean Kim Discharge Problem: Sepsis, Acute kidney injury, Acute UTI, Urinary retention, Elevated troponin Patient Disposition: Admitted As Inpatient Discharge Instructions Interventions: ED Discharge Assessment Last Done: 02/19/19 14:57 Discharge Problem: Sepsis Qualifiers: Sepsis type: sepsis due to unspecified organism Sepsis acute organ dysfunction status: unspecified Qualified Code(s): A41.9 - Sepsis, unspecified organism The scribe's documentation has been prepared under my direction and personally reviewed by me in its entirety. I confirm that the note above accurately reflects all work, treatment, procedures, and medical decision making performed by me.
--- NOTE | 2019-02-19 19:34 | Urology Consultation ---
Date of Consultation February 19, 2019 Assessment & Plan (1) Complicated UTI (urinary tract infection): Patient on broad-spectrum antibiotics with maximum drainage with Guy catheter. Tolerating catheter well without major obstruction. Patient has not had any significant clots or other issues. Does have dark red urine within Guy catheter bag and tubing. Patient is tolerating catheter otherwise. Patient has significant severe dementia issues. Was unable to give major events leading up to hospitalization and development of altered mental status. Patient has stabilized since admission. Has been placed on broad-spectrum antibiotics and is doing well otherwise. Patient is unsure if he is ever seen urologist. Does not know if he has had previous issues with retention or other urinary complaints. Is tolerating catheter without major issues or concerns. We will plan to maintain catheter for drainage. Will monitor closely. Patient had large volume retention with nearly 2 L of urine drained. Will need to keep catheter likely for at least 10 to 14 days. Will also need full course of antibiotics for UTI. We will plan to see patient in office. May be best to plan for scope at time of catheter removal to better assess patient's drainage and other issues. We will continue to follow. Call if any issues or changes (2) Sepsis: (3) Acute kidney injury: (4) Traumatic hematuria: (5) Urinary retention due to benign prostatic hyperplasia: History of Present Illness Attending Physician: Evelin Joseph MD History of Present Illness Patient presented with altered mental status severe white count, signs of complicated UTI, acute urinary retention, history of dementia and schizoaffective disorder with worsening mental status, general ill feelings and malaise. Patient was found to be in retention and a catheter was placed nearly 2 L of urine drained. Patient is admitted due to an COLT as well as continued issues. Patient is being treated with broad-spectrum antibiotics. Does have a history of urinary issues in the past. Previously has not been with a urologist as far as he remembers. Is limited on history and especially of pertinent events leading up to this event. Patient does have baseline dementia issues. Is tolerating catheter well at this. Has drastically improved since Guy drainage. Is unable to say exactly how long he had gone without needing to void. And it was mainly complaining of diffuse abdominal pain. Was going in waves and going to back. Catheter developed hematuria after placement. Did have large volume retention with nearly 2 L of urine drained Allergies Allergy/AdvReac Type Severity Reaction Status Date / Time olanzapine Allergy Mild "IT DOES Verified 02/19/19 12:05 NOT WORK" risperidone Allergy Unknown UNKNOWN Verified 02/19/19 12:05 Tricyclic Antidepressants Allergy Unknown . Uncoded 02/19/19 12:05 Flu Virus Vaccine AdvReac Unknown CAUSES Uncoded 02/19/19 12:05 PAIN AT INJECTION SITE Home Medications Home Medications Medication Instructions Recorded Confirmed Type Artificial Tears (PF) 1 drp OPB BID 11/22/18 02/19/19 History Calmoseptine 1 applic TOPICAL DAILY 11/22/18 02/19/19 History [place]'s wort 300 mg PO DAILY 11/22/18 02/19/19 History aspirin 81 mg PO DAILY 11/22/18 02/19/19 History benztropine 1 mg PO BID 11/22/18 02/19/19 History docusate sodium 100 mg PO BID 11/22/18 02/19/19 History fluphenazine decanoate 25 mg IM MONTHLY 11/22/18 02/19/19 History lorazepam 0.5 mg PO TID PRN 11/22/18 02/19/19 History memantine 10 mg PO BID 11/22/18 02/19/19 History mirtazapine 30 mg PO HS 11/22/18 02/19/19 History multivitamin 1 tab PO DAILY 11/22/18 02/19/19 History perphenazine 8 mg PO TID 11/22/18 02/19/19 History amlodipine 5 mg PO DAILY 02/08/19 02/19/19 History lisinopril 10 mg PO DAILY 02/08/19 02/19/19 History Lactobacillus acidoph-L.bulgar 4 tab PO QIDM 10 Days #40 tab 02/11/19 02/19/19 Rx [Floranex] finasteride [Proscar] 5 mg PO QAM 30 Days #30 tab 02/11/19 02/19/19 Rx tamsulosin 0.4 mg PO QAM 30 Days #30 cap 02/11/19 02/19/19 Rx Patient History Medical History Dementia (Chronic) H/O: CVA (cerebrovascular accident) (Chronic) HTN (hypertension) (Chronic) Schizoaffective disorder (Chronic) Surgical History Hx of cataract surgery (Chronic) S/P tonsillectomy (Chronic) Family History Other Hypertension Social History Preferred Language: Spanish Communication Ability: Impaired Elevator Repairer Required: No Beliefs That Will Affect Care: None Current Living Situation: Personal Care Facility Current Living Situation Comment: [facility] Other Information That Helps Us Care for You: No Feels Safe at Home: Yes Safety Concerns: Feels Safe At This Time Smoking Status: Former smoker Hx Alcohol Use: No Hx Substance Use: No Review of Systems Review of Systems: All systems reviewed & are unremarkable except as noted in HPI & below Limited today secondary to patient's mental status Physical Exam Physical Exam: General: Chronic dementia with acute exacerbation of altered mental status. HEENT: Normocephalic. Large bruising of left face. Right victor m labial hematoma. Inspection normal. Cranial Nerves 2-12 Grossly intact. Nares are clear. Neck is supple. Normal inspection of face. Normal inspection of neck. Neurologic: No deficits on inspection. Baseline for motor function and sensory. Psychologic: Normal affect. Pleasant. Poor memory/ability to describe pertinent events leading up to hospitalization Respiratory: Nonlabored. No use of accessory muscles. No tachypnea or dyspnea. Cardiovascular: No tachycardia Skin: Sadler and Dry. No rashes or visible lesions. Extremities: Moving without issues. No motor deficits on inspection Lymphatics: No edema Abdomen: Soft Non-distended. No acites. No rebound or guarding. : Guy catheter in draining dark red urine. No significant clots Results & Data Vital Signs (Past 12 Hours) Vital Signs Temp Pulse Resp BP Pulse Ox 02/19/19 14:31 106 H 23 02/19/19 14:30 108 H 22 102/67 02/19/19 14:02 106 H 21 100 02/19/19 14:01 107 H 27 H 106/59 L 100 02/19/19 14:00 104 H 21 92 02/19/19 13:48 106 H 24 100/61 93 02/19/19 13:31 109 H 22 100 11/17/19 13:30 112 H 24 106/66 94 02/19/19 13:01 115 H 15 02/19/19 13:00 112 H 24 131/76 02/19/19 12:40 115 H 21 92 02/19/19 12:39 110 H 22 105/65 02/19/19 12:01 113 H 24 98 02/19/19 12:00 116 H 24 103/62 98 02/19/19 11:31 118 H 22 100 02/19/19 11:30 107 H 19 115/66 98 02/19/19 11:06 110 H 20 99 02/19/19 11:05 111 H 22 111/63 98 02/19/19 11:00 100 02/19/19 10:30 109 H 21 98 02/19/19 10:29 37.2 C 100 H 16 116/66 96 02/19/19 10:23 110 H 20 116/66 97 PG Care Time/CCT Total # of Minutes Spent Total Time Spent with Patient: Total time spent is greater than 50% in coordination of care (as documented) at patient's floor/unit and/or counseling patient: (1) Sepsis Sepsis acute organ dysfunction status: unspecified Sepsis type: sepsis due to unspecified organism Qualified Code(s): A41.9 - Sepsis, unspecified organism
[2019-02-19] MEDS: ARTIFICIAL TEARS OP SCH ×2 (20:00→21:15)
[2019-02-19] MEDS: ACETAMINOPHEN 325 MG TAB PO PRN (20:01)
[2019-02-19] MEDS: BENZTROPINE MESYLATE 1 MG TAB PO SCH (20:02)
[2019-02-19] MEDS: DOCUSATE SODIUM 100 MG CAP PO SCH (20:02)
[2019-02-19] MEDS: MEMANTINE HCL 10 MG TAB PO SCH (20:03)
[2019-02-19] MEDS: MIRTAZAPINE TAB 15 MG TAB PO SCH (20:04)
[2019-02-19] MEDS: PERPHENAZINE 2 MG TABLET PO SCH (20:12)
[2019-02-20] MEDS: PIPERACILLIN/TAZOBACTAM 3.375 GM in DEXTROSE 5% 100 ML IV SCH ×3 (01:00→17:11)
[2019-02-20] MEDS: SODIUM CHLORIDE 0.9% 1000ML 1,000 ML IV SCH ×2 (02:46→10:27)
[2019-02-20 06:15] LABS: Hematocrit (blood only) 26.6 % (42-52); Hemoglobin 9.1 g/dL (14.0-18.0); Mean Corpuscular Hemoglobin 30.1 pg (25-34); Mean Corpuscular Hgb Conc 34.2 g/dL (32-36); Mean Corpuscular Volume 88.1 fL (80-100); Mean Platelet Volume 9.1 fL (7.4-10.4); Platelet Count 181 K/uL (130-400); RDW Standard Deviation 48.5 fL (36.4-46.3); Red Blood Count 3.02 M/uL (4.7-6.1); White Blood Count 35.24 K/uL (4.8-10.8)
[2019-02-20 06:50] LABS: BUN Creatinine Ratio 14.9 (10-20); Calcium 7.7 mg/dl (8.5-10.1); Creatinine Clr Calc Pharmacy 29.9 ml/min; Est GFR (African American) 36.6; Est GFR (Non-African American) 31.6; Potassium 4.1 mmol/L (3.5-5.1)
[2019-02-20] MEDS: MULTIVITAMIN TAB PO SCH (07:58)
[2019-02-20] MEDS: TAMSULOSIN HCL 0.4 MG CAP PO SCH (07:58)
[2019-02-20] MEDS: PERPHENAZINE 2 MG TABLET PO SCH ×3 (07:58→22:26)
[2019-02-20] MEDS: LACTOBACILLUS ACIDOPHILUS (FLORANEX) TAB PO SCH ×4 (07:58→22:24)
[2019-02-20] MEDS: MEMANTINE HCL 10 MG TAB PO SCH ×2 (07:59→22:25)
[2019-02-20] MEDS: BENZTROPINE MESYLATE 1 MG TAB PO SCH ×2 (07:59→22:25)
[2019-02-20] MEDS: FINASTERIDE 5 MG TAB PO SCH (07:59)
[2019-02-20] MEDS: DOCUSATE SODIUM 100 MG CAP PO SCH ×2 (07:59→22:26)
[2019-02-20] MEDS: MENTHOL-ZINC OXIDE 360 APPLN/120 GM TUBE EXT SCH ×2 (07:59→08:10)
[2019-02-20] MEDS: ARTIFICIAL TEARS OP SCH ×2 (08:00→22:27)
[2019-02-20] MEDS ORDERED: VANCOMYCIN HCL 1,250 MG in SODIUM CHLORIDE 0.9% 250 ML IV ONE (08:00)
--- NOTE | 2019-02-20 08:06 | Pharmacy Report ---
Pharmacy Abx Dose Short Note - Date of Service February 20, 2019 - Assessment & Plan Assessment * 78 year old M receiving VANCOMYCIN + ZOSYN for treatment of complicated UTI / sepsis * Day # 2 of antimicrobial therapy * Patient presented with mental status changes, urinary retention, COLT, tachy cardia, leukocytosis, and elevated lactate * WBC trending down today, COLT appears to be improving based upon UOP and SCr (SCr 2.8 -->1.97, baseline ~1.3), MAPs > 70 and patient Sat well on room air * Blood and Urine Cxs no reported growth at this time. Plan Vancomycin * Random level of 8.1 mcg/mL is subtherapeutic. * New p'kinetic estimates: Vd 0.7L/kg, half-life ~18-20 hrs * New maint dose: 1250mg (~15mg/kg) IV Q 20 hrs * Goal trough level for sepsis : 15 to 20 mcg/mL, however may lessen goal to 10- 20 if blood cx's remain negative * Therapy has only been ordered for 48 hrs Will check trough level if therapy extended. Zosyn * eCrCl >20cc/min * BMI < 35 * Continue 3.375g ext-infusion Q 8 hrs Pharmacy will continue to follow and will adjust dose/frequency as necessary. Thank you.
--- NOTE | 2019-02-20 09:58 | Hospitalist Progress Note ---
Date of Service February 20, 2019 Assessment & Plan (1) Sepsis: (2) Complicated UTI (urinary tract infection): This is a 78yo M from with a PMH of vascular dementia, schizoaffective disorder, HTN, history of [facility] and [facility] [place] [facility] confusion was found to have sepsis, complicated UTI with indwelling Stafford and acute kidney injury. -on admission on 02/19/19 BP 102/67 and heart rate of 115. Leukocytosis of 54K with initial lactic acid 5 and troponin of 0.340. Creatinine elevated at 2.8 (baseline ~1.2) Had stafford catheter in place upon arrival that had moved distally with some traumatic hematuria. Evidence of marked urinary bladder distention compatible with bladder outlet obstruction on CT abd/pelvis Stafford replaced and drained ~2 L urine. Suprapubic tenderness has resolved Urinalysis with blood, leuk esterase and urine bacteria present. Urine and blood cultures pending Given 3 L IV fluid resuscitation in ED and started on empiric Zosyn and Vanc -lactic acid normalized to 1.9 -as of 02/20/19: white blood cells downtrended to 35,000. continue IV fluids at reduced rate, monitor urine output. follow urine cultures, preliminary blood culture results as gram negative bacilli. continue Zosyn, stop Vancomycin. (3) Traumatic hematuria: -[facility] urology 02/19/19 note: "maintain catheter for drainage. Will monitor closely. Patient had large volume retention with nearly 2 L of urine drained. Will need to keep catheter likely for at least 10 to 14 days. Will also need full course of antibiotics for UTI. We will plan to see patient in office. May be best to plan for scope at time of catheter removal to better assess patient's drainage and other issues." (4) Acute kidney injury: -baseline creatinine estimated to be around 1.2 -admission Creatinine elevated at 2.8 -creatinine downtrending to 1.97 with IV fluids (5) HTN (hypertension): -history of hypertension -home medications of lisinopril and amlodipine have been held on this admission because of sepsis and low normotensive pressures -continue to hold anti-hypertensives (6) Elevated troponin: -on admission.No chest pain or acute ischemic EKG changes. Chest x-ray without acute process -from the initial troponin as 0.34, troponins have plateau as 0.387 and 0.322 on 01/19/19 -elevated troponins Likely demand ischemia in setting of acute infection, sepsis -Monitor on telemetry (7) Schizoaffective disorder: -Continue Trilafon (perphenazine) home dosing -Ativan PRN- -as outpatient, he receives monthly Prolixin (fluphenazine) injection (8) H/O: CVA (cerebrovascular accident): -chart review of history of stroke in the past -Holding aspirin in setting of hematuria -PT/OT evaluations (9) Dysphagia: -Mechanical soft diet. Aspiration precautions -speech and swallow evaluation DVT Ppx: SCDs in setting of hematuria Code status: FULL. as per admission history and physical there is a note that recommended to contact office of aging solar manufacturer's representative on to update & discuss code status (Radha at [phone]) Subjective Patient seen and examined sitting upright. He is oriented to year and month. had to be reminded that this location is the hospital. patient cooperative on exam. he reports he does not have family visitors at the [facility] and does not have telephone conversations with any relations. Review of Systems Review of Systems: All systems reviewed & are unremarkable except as noted in HPI & below Physical Exam Constitutional: comfortable Eyes: PERRL, conjunctivae normal, anicteric sclerae EOM intact bilaterally ENMT: Mouth: + lip abnormality (right upper lip mass that patient reports is chronic hemangioma) Respiratory: normal respiratory effort, lungs clear to auscultation Cardiovascular: Rate/Rhythm: regular rate Gastrointestinal (Abdomen): normal bowel sounds, soft, nontender, no hepatosplenomegaly Musculoskeletal: Head/Neck/Chest: normocephalic and head atraumatic Neurologic: moves all extremities Psychiatric: Orientation: alert, oriented to person, oriented to time and cooperative Genitourinary: + bladder abnormality (stafford, erythema around penis) dried blood on right inner thigh likely from hematuria Results & Data Vital Signs (Past 12 Hours) Vital Signs Temp Pulse Resp BP BP Pulse Ox 02/20/19 08:09 36.4 C L 90 20 113/61 97 02/20/19 04:20 36.5 C 98 H 24 99/65 L 97 02/19/19 23:46 36.5 C 100 H 21 97/61 L 95 (1) Dysphagia Dysphagia type: unspecified Qualified Code(s): R13.10 - Dysphagia, unspeci fied (2) Schizoaffective disorder Schizoaffective disorder type: unspecified Qualified Code(s): F25.9 - Schizoaffective disorder, unspecified (3) Sepsis Sepsis acute organ dysfunction status: unspecified Sepsis type: sepsis due to unspecified organism Qualified Code(s): A41.9 - Sepsis, unspecified organism
[2019-02-20] MEDS: MIRTAZAPINE TAB 15 MG TAB PO SCH (22:24)
[2019-02-21] MEDS: PIPERACILLIN/TAZOBACTAM 3.375 GM in DEXTROSE 5% 100 ML IV SCH ×3 (01:50→18:06)
[2019-02-21] MEDS ORDERED: VANCOMYCIN HCL 1,250 MG in SODIUM CHLORIDE 0.9% 250 ML IV SCH (04:00)
[2019-02-21 06:01] LABS: Hematocrit (blood only) 26.6 % (42-52); Hemoglobin 9.1 g/dL (14.0-18.0); Mean Corpuscular Hemoglobin 29.9 pg (25-34); Mean Corpuscular Hgb Conc 34.2 g/dL (32-36); Mean Corpuscular Volume 87.5 fL (80-100); Mean Platelet Volume 9.7 fL (7.4-10.4); Platelet Count 185 K/uL (130-400); RDW Standard Deviation 48.3 fL (36.4-46.3); Red Blood Count 3.04 M/uL (4.7-6.1); White Blood Count 23.04 K/uL (4.8-10.8)
[2019-02-21 06:26] LABS: Basophils # (auto) 0.02 K/uL (0-0.2); Basophils % (auto) 0.1 %; Dohle Bodies Occasional; Echinocytes 1+; Eosinophils # (auto) 0.27 K/uL (0-0.5); Eosinophils % (auto) 1.2 %; Immature Granulocytes # (auto) 0.07 K/uL (0.00-0.02); Immature Granulocytes % (auto) 0.3 %; Lymphocytes % (auto) 5.2 %; Monocytes # (auto) 1.08 K/uL (0.11-0.59); Monocytes % (auto) 4.7 %; Neutrophils % (auto) 88.5 %; Toxic Vacuolation Occasional
[2019-02-21 06:40] LABS: Albumin Level 1.7 gm/dl (3.4-5.0); BUN Creatinine Ratio 16.8 (10-20); Calcium 7.9 mg/dl (8.5-10.1); Creatinine Clr Calc Pharmacy 47.5 ml/min; Est GFR (African American) 57.4; Est GFR (Non-African American) 49.5; Potassium 3.8 mmol/L (3.5-5.1)
[2019-02-21 06:44] LABS: Albumin Globulin Ratio 0.5 (0.9-2); Bilirubin,Total 0.5 mg/dl (0.2-1); Globulin 3.4 gm/dl (2.5-4.0); Total Protein 5.1 gm/dl (6.4-8.2)
[2019-02-21] MEDS: BENZTROPINE MESYLATE 1 MG TAB PO SCH ×2 (07:54→20:04)
[2019-02-21] MEDS: DOCUSATE SODIUM 100 MG CAP PO SCH ×2 (07:54→20:15)
[2019-02-21] MEDS: LACTOBACILLUS ACIDOPHILUS (FLORANEX) TAB PO SCH ×4 (07:54→20:03)
[2019-02-21] MEDS: TAMSULOSIN HCL 0.4 MG CAP PO SCH (07:54)
[2019-02-21] MEDS: MENTHOL-ZINC OXIDE 360 APPLN/120 GM TUBE EXT SCH (07:54)
[2019-02-21] MEDS: ARTIFICIAL TEARS OP SCH ×2 (07:54→20:05)
[2019-02-21] MEDS: MULTIVITAMIN TAB PO SCH (07:55)
[2019-02-21] MEDS: MEMANTINE HCL 10 MG TAB PO SCH ×2 (07:55→20:04)
[2019-02-21] MEDS: FINASTERIDE 5 MG TAB PO SCH (07:55)
[2019-02-21] MEDS: PERPHENAZINE 2 MG TABLET PO SCH ×3 (07:55→20:03)
[2019-02-21 08:04] LABS: Magnesium 1.8 mg/dl (1.8-2.4); Phosphorus 2.3 mg/dl (2.5-4.9)
--- NOTE | 2019-02-21 08:27 | Hospitalist Progress Note ---
Date of Service February 21, 2019 Assessment & Plan (1) Sepsis: (2) Complicated UTI (urinary tract infection): This is a 78yo M from with a PMH of vascular dementia, schizoaffective disorder, HTN, history of CVA and other medical problems listed below from [facility] in [place] who presents with confusion was found to have sepsis, complicated UTI with indwelling Stafford and acute kidney injury. -on admission on 02/19/19 BP 102/67 and heart rate of 115. Leukocytosis of 54K with initial lactic acid 5 and troponin of 0.340. Creatinine elevated at 2.8 (baseline ~1.2) Had stafford catheter in place upon arrival that had moved distally with some traumatic hematuria. Evidence of marked urinary bladder distention compatible with bladder outlet obstruction on CT abd/pelvis Stafford replaced and drained ~2 L urine. Suprapubic tenderness has resolved Urinalysis with blood, leuk esterase and urine bacteria present. Urine and blood cultures pending Given 3 L IV fluid resuscitation in ED and started on empiric Zosyn and Vanc -lactic acid normalized to 1.9 -as of 02/20/19: white blood cells downtrended to 35,000. continue IV fluids at reduced rate, monitor urine output. follow urine cultures, preliminary blood culture results as gram negative bacilli. continue Zosyn, stop Vancomycin. -as of 02/21/19: white blood cell cells downtrended to 23,000. IV fluids are stopped, preliminary blood and urine culture results of gram negative bacilli, continue Zosyn (3) Traumatic hematuria: -[facility] urology 02/19/19 note: "maintain catheter for drainage. Will monitor closely. Patient had large volume retention with nearly 2 L of urine drained. Will need to keep catheter likely for at least 10 to 14 days. Will also need full course of antibiotics for UTI. We will plan to see patient in office. May be best to plan for scope at time of catheter removal to better assess patient's drainage and other issues." (4) Acute kidney injury: -baseline creatinine estimated to be around 1.2 -admission Creatinine elevated at 2.8 -creatinine downtrending to 1.36 with IV fluids. stopped IV fluids on 02/21/19 (5) HTN (hypertension): -history of hypertension -home medications of lisinopril and amlodipine had been held on this admission because of sepsis and low normotensive pressures -blood pressures improving -restarting lisinopril as 10 mg daily for now (6) Elevated troponin: -on admission.No chest pain or acute ischemic EKG changes. Chest x-ray without acute process -from the initial troponin as 0.34, troponins have plateau as 0.387 and 0.322 on 01/19/19 -elevated troponins Likely demand ischemia in setting of acute infection, sepsis -denies chest pain -patient has been monitored on telemetry and no acute events (7) Schizoaffective disorder: -Continue Trilafon (perphenazine) home dosing -Ativan PRN -as outpatient, he receives monthly Prolixin (fluphenazine) injection (8) H/O: CVA (cerebrovascular accident): -chart review of history of stroke in the past -Holding aspirin in setting of hematuria -PT/OT evaluations (9) Dysphagia: -speech and swallow evaluations have been completed -patient able to eat the food -patient has upper lip mass that he reports is a chronic hemangioma DVT Ppx: SCDs in setting of hematuria Code status: FULL. patient's power of research attorney is office of aging community engagement representative (Radha Noble at [phone]) Disposition: Patient remains inpatient. appears to be stable to be transferred from telemetry to medical surgical al[facility]to. My hospitalist colleague Dr. Leger will be the hospitalist stating on 02/22/19 Subjective No acute events on telemetry monitoring. Patient is cooperative. He denies acute pain. continues to have stafford. breathing on room air. his feet are in the red socks. his legs are rested on pillows. there is mild lower extremity edema. patient able to move all extremities on the bed. Patient denies acute pain anywhere of the body. He is able to the meals Review of Systems Review of Systems: All systems reviewed & are unremarkable except as noted in HPI & below Physical Exam Constitutional: comfortable Eyes: PERRL, conjunctivae normal, anicteric sclerae EOM intact bilaterally ENMT: Mouth: + lip abnormality (right upper lip mass that patient reports is chronic hemangioma) Neck: normal visual inspection Respiratory: normal respiratory effort, lungs clear to auscultation Cardiovascular: Rate/Rhythm: regular rate Gastrointestinal (Abdomen): normal bowel sounds, soft, nontender, no hepatosplenomegaly Musculoskeletal: Head/Neck/Chest: normocephalic and head atraumatic his feet are in the red socks. his legs are rested on pillows. there is mild lower extremity edema. patient able to move all extremities on the bed Neurologic: moves all extremities Psychiatric: Orientation: alert, oriented to person, oriented to time and cooperative Genitourinary: + bladder abnormality (stafford, erythema around penis) Results & Data Vital Signs (Past 12 Hours) Vital Signs Temp Pulse Resp BP BP Pulse Ox 02/21/19 07:45 36.5 C 83 20 123/72 95 02/21/19 03:54 36.9 C 86 20 107/64 95 02/21/19 00:08 37.1 C 94 H 18 109/71 94 (1) Sepsis Sepsis acute organ dysfunction status: unspecified Sepsis type: sepsis due to unspecified organism Qualified Code(s): A41.9 - Sepsis, unspecified organism (2) Schizoaffective disorder Schizoaffective disorder type: unspecified Qualified Code(s): F25.9 - Schizoaffective disorder, unspecified (3) Dysphagia Dysphagia type: unspecified Qualified Code(s): R13.10 - Dysphagia, unspecified
--- NOTE | 2019-02-21 09:43 | Urology Progress Note ---
Date of Service February 21, 2019 Assessment & Plan (1) Traumatic hematuria: Currently improved. We will plan on outpatient cystoscopy. Check for final cultures and treat for complex UTI as needed. (2) Urinary retention due to benign prostatic hyperplasia: Guy catheter for 1 to 2 weeks as previously discussed. Will add finasteride to regimen, continue tamsulosin. Will consider trial of void as outpatient. Thank you for allowing us to participate in this patient's acute care. Please contact our service with any questions or concerns. Subjective 78-year-old male with a history of urinary tract infection and urinary retention status post Guy catheter placement with subsequent hematuria. He currently denies any bother with his catheter, urine has cleared. Urine culture demonstrates greater than 100,000 organisms but final sensitivities and specificity's are pending. Notes since urology consultation past notes and urology consultation are reviewed. Currently on Flomax. Review of Systems Constitutional: no fever and no chills Eyes: no diplopia Ear, Nose, Mouth, Throat: no ear trauma Respiratory: no hemoptysis Cardiovascular: no chest pain Integumentary: no acne and no boil Neurologic: no paralysis Psychiatric: no hopelessness Allergy / Immunological: no tongue swelling Physical Exam Constitutional: no acute distress Eyes: eyes not dysmorphic ENMT: Ears: no external ear abnormality Right upper lip lesion, uninfected. Neck: trachea midline; no anterior neck swelling Respiratory: no respiratory distress and does not use accessory muscles Cardiovascular: Vessels: radial pulses present Gastrointestinal (Abdomen): Inspection/Auscultation: abdomen not distended Percussion/Palpation: abdomen soft; abdomen nontender Musculoskeletal: Head/Neck/Chest: normocephalic and neck supple Skin: normal turgor Neurologic: awake; not obtunded Lymphatic: no lymphadenopathy Results & Data Vital Signs (Past 12 Hours) Vital Signs Temp Pulse Resp BP BP Pulse Ox 02/21/19 07:45 36.5 C 83 20 123/72 95 02/21/19 03:54 36.9 C 86 20 107/64 95 02/21/19 00:08 37.1 C 94 H 18 109/71 94 Laboratory Results Laboratory Results - last 48 hr 02/19/19 02/19/19 02/19/19 11:15 11:15 11:25 WBC 54.25 H* RBC 3.61 L Hgb 10.8 L Hct 32.4 L MCV 89.8 MCH 29.9 MCHC 33.3 RDW Std Deviation 48.9 H RDW Coeff of So 14.9 H Plt Count 292 MPV 9.5 Immature Gran % (Auto) 0.8 Neut % (Auto) 94.8 Lymph % (Auto) 1.0 [place] % (Auto) 3.4 Eos % (Auto) 0.0 Baso % (Auto) 0.0 Immature Gran # (Auto) 0.42 H Neut # (Auto) 51.46 H Lymph # (Auto) 0.52 L [place] # (Auto) 1.83 H Eos # (Auto) 0.00 Baso # (Auto) 0.02 Toxic Vacuolation 2+ Dohle Bodies Platelet Estimate Normal Echinocytes Sodium 138 Potassium 4.6 Chloride 106 Carbon Dioxide 22 Anion Gap 10.0 BUN 31 H Creatinine 2.80 H Est Cr Clr Drug Dosing 21.0 Est GFR ( Amer) 24.0 Est GFR (Non-Af Amer) 20.7 BUN/Creatinine Ratio 11.0 Glucose 79 POC Lactic Acid [place] 5.18 H Lactate Calcium 8.8 Phosphorus Magnesium Total Bilirubin 0.5 AST 187 H ALT 51 Alkaline Phosphatase 59 Troponin I 0.340 H* Total Protein 6.9 Albumin 2.9 L Globulin 4.0 Albumin/Globulin Ratio 0.7 L TSH 1.690 Urine Color Urine Appearance Urine pH Ur Specific Staples Urine Protein Urine Glucose (UA) Urine Ketones Urine Blood Urine Nitrite Urine Bilirubin Urine Urobilinogen Ur Leukocyte Esterase Urine RBC Urine WBC Ur Epithelial Cells Calcium Oxalate Crystal Urine Bacteria Random Vancomycin 02/19/19 02/19/19 02/19/19 12:12 13:30 14:08 WBC RBC Hgb Hct MCV MCH MCHC RDW Std Deviation RDW Coeff of So Plt Count MPV Immature Gran % (Auto) Neut % (Auto) Lymph % (Auto) [place] % (Auto) Eos % (Auto) Baso % (Auto) Immature Gran # (Auto) Neut # (Auto) Lymph # (Auto) [place] # (Auto) Eos # (Auto) Baso # (Auto) Toxic Vacuolation Dohle Bodies Platelet Estimate Echinocytes Sodium Potassium Chloride Carbon Dioxide Anion Gap BUN Creatinine Est Cr Clr Drug Dosing Est GFR ( Amer) Est GFR (Non-Af Amer) BUN/Creatinine Ratio Glucose POC Lactic Acid [place] Lactate 5.0 H* 3.4 H* Calcium Phosphorus Magnesium Total Bilirubin AST ALT Alkaline Phosphatase Troponin I Total Protein Albumin Globulin Albumin/Globulin Ratio TSH Urine Color Red Urine Appearance Cloudy A Urine pH 7.0 Ur Specific Staples 1.015 Urine Protein 2+ H Urine Glucose (UA) Negative Urine Ketones Negative Urine Blood 3+ H Urine Nitrite Negative Urine Bilirubin Negative Urine Urobilinogen Negative Ur Leukocyte Esterase 2+ H Urine RBC >30 H Urine WBC >30 H Ur Epithelial Cells 5-10 H Calcium Oxalate Crystal Present A Urine Bacteria 3+ H Random Vancomycin 02/19/19 02/19/19 02/19/19 17:17 17:17 22:54 WBC RBC Hgb Hct MCV MCH MCHC RDW Std Deviation RDW Coeff of So Plt Count MPV Immature Gran % (Auto) Neut % (Auto) Lymph % (Auto) [place] % (Auto) Eos % (Auto) Baso % (Auto) Immature Gran # (Auto) Neut # (Auto) Lymph # (Auto) [place] # (Auto) Eos # (Auto) Baso # (Auto) Toxic Vacuolation Dohle Bodies Platelet Estimate Echinocytes Sodium Potassium Chloride Carbon Dioxide Anion Gap BUN Creatinine Est Cr Clr Drug Dosing Est GFR ( Amer) Est GFR (Non-Af Amer) BUN/Creatinine Ratio Glucose POC Lactic Acid [place] Lactate 1.9 Calcium Phosphorus Magnesium Total Bilirubin AST ALT Alkaline Phosphatase Troponin I 0.387 H* 0.322 H* Total Protein Albumin Globulin Albumin/Globulin Ratio TSH Urine Color Urine Appearance Urine pH Ur Specific Staples Urine Protein Urine Glucose (UA) Urine Ketones Urine Blood Urine Nitrite Urine Bilirubin Urine Urobilinogen Ur Leukocyte Esterase Urine RBC Urine WBC Ur Epithelial Cells Calcium Oxalate Crystal Urine Bacteria Random Vancomycin 02/20/19 02/20/19 02/20/19 05:55 05:55 05:55 WBC 35.24 H* D RBC 3.02 L Hgb 9.1 L Hct 26.6 L MCV 88.1 MCH 30.1 MCHC 34.2 RDW Std Deviation 48.5 H RDW Coeff of So 15.0 H Plt Count 181 MPV 9.1 Immature Gran % (Auto) Neut % (Auto) Lymph % (Auto) [place] % (Auto) Eos % (Auto) Baso % (Auto) Immature Gran # (Auto) Neut # (Auto) Lymph # (Auto) [place] # (Auto) Eos # (Auto) Baso # (Auto) Toxic Vacuolation Dohle Bodies Platelet Estimate Echinocytes Sodium 143 Potassium 4.1 Chloride 112 H Carbon Dioxide 25 Anion Gap 7.0 BUN 29 H Creatinine 1.97 H D Est Cr Clr Drug Dosing 29.9 Est GFR ( Amer) 36.6 Est GFR (Non-Af Amer) 31.6 BUN/Creatinine Ratio 14.9 Glucose 81 POC Lactic Acid [place] Lactate Calcium 7.7 L Phosphorus Magnesium Total Bilirubin AST ALT Alkaline Phosphatase Troponin I Total Protein Albumin Globulin Albumin/Globulin Ratio TSH Urine Color Urine Appearance Urine pH Ur Specific Staples Urine Protein Urine Glucose (UA) Urine Ketones Urine Blood Urine Nitrite Urine Bilirubin Urine Urobilinogen Ur Leukocyte Esterase Urine RBC Urine WBC Ur Epithelial Cells Calcium Oxalate Crystal Urine Bacteria Random Vancomycin 8.1 02/21/19 02/21/19 02/21/19 05:38 05:38 05:38 WBC 23.04 H D RBC 3.04 L Hgb 9.1 L Hct 26.6 L MCV 87.5 MCH 29.9 MCHC 34.2 RDW Std Deviation 48.3 H RDW Coeff of So 15.0 H Plt Count 185 MPV 9.7 Immature Gran % (Auto) 0.3 Neut % (Auto) 88.5 Lymph % (Auto) 5.2 [place] % (Auto) 4.7 Eos % (Auto) 1.2 Baso % (Auto) 0.1 Immature Gran # (Auto) 0.07 H Neut # (Auto) 20.40 H Lymph # (Auto) 1.20 [place] # (Auto) 1.08 H Eos # (Auto) 0.27 Baso # (Auto) 0.02 Toxic Vacuolation Occasional Dohle Bodies Occasional Platelet Estimate Echinocytes 1+ Sodium 143 Potassium 3.8 Chloride 113 H Carbon Dioxide 23 Anion Gap 7.0 BUN 23 H Creatinine 1.36 D Est Cr Clr Drug Dosing 47.5 Est GFR ( Amer) 57.4 Est GFR (Non-Af Amer) 49.5 BUN/Creatinine Ratio 16.8 Glucose 81 POC Lactic Acid [place] Lactate Calcium 7.9 L Phosphorus 2.3 L Magnesium 1.8 Total Bilirubin 0.5 AST 163 H ALT 76 Alkaline Phosphatase 52 Troponin I Total Protein 5.1 L D Albumin 1.7 L Globulin 3.4 Albumin/Globulin Ratio 0.5 L TSH Urine Color Urine Appearance Urine pH Ur Specific Staples Urine Protein Urine Glucose (UA) Urine Ketones Urine Blood Urine Nitrite Urine Bilirubin Urine Urobilinogen Ur Leukocyte Esterase Urine RBC Urine WBC Ur Epithelial Cells Calcium Oxalate Crystal Urine Bacteria Random Vancomycin PG Care Time/CCT Total # of Minutes Spent Total Time Spent with Patient: Total time spent is greater than 50% in coordination of care (as documented) at patient's floor/unit and/or counseling patient:
[2019-02-21] MEDS ORDERED: FINASTERIDE 5 MG TAB PO SCH (09:45)
[2019-02-21] MEDS: lisinopriL 10 MG TAB PO SCH (09:56)
[2019-02-21] MEDS: SODIUM CHLORIDE 0.9% 1000ML 1,000 ML IV SCH (15:21)
[2019-02-21] MEDS: MIRTAZAPINE TAB 15 MG TAB PO SCH (20:06)
[2019-02-22] MEDS: PIPERACILLIN/TAZOBACTAM 3.375 GM in DEXTROSE 5% 100 ML IV SCH ×3 (02:10→16:51)
[2019-02-22] MEDS: ACETAMINOPHEN 325 MG TAB PO PRN ×2 (08:30→16:51)
[2019-02-22] MEDS: LACTOBACILLUS ACIDOPHILUS (FLORANEX) TAB PO SCH ×4 (08:32→20:15)
[2019-02-22] MEDS: ARTIFICIAL TEARS OP SCH ×2 (08:33→20:15)
[2019-02-22] MEDS: MENTHOL-ZINC OXIDE 360 APPLN/120 GM TUBE EXT SCH (08:33)
[2019-02-22] MEDS: MULTIVITAMIN TAB PO SCH (08:34)
[2019-02-22] MEDS: PERPHENAZINE 2 MG TABLET PO SCH ×3 (08:35→20:14)
[2019-02-22] MEDS: lisinopriL 10 MG TAB PO SCH (08:36)
[2019-02-22] MEDS: MEMANTINE HCL 10 MG TAB PO SCH ×2 (08:39→20:15)
[2019-02-22] MEDS: FINASTERIDE 5 MG TAB PO SCH (08:39)
[2019-02-22] MEDS: BENZTROPINE MESYLATE 1 MG TAB PO SCH ×2 (08:39→20:15)
[2019-02-22] MEDS: TAMSULOSIN HCL 0.4 MG CAP PO SCH (08:40)
[2019-02-22] MEDS: DOCUSATE SODIUM 100 MG CAP PO SCH ×2 (08:44→20:14)
--- NOTE | 2019-02-22 09:25 | Infectious Disease Consult ---
Date of Consultation February 22, 2019 Assessment & Plan (1) Pseudomonas sepsis: 78-year-old male with pseudomonal sepsis from urinary tract infection in the setting of urinary retention and indwelling Guy catheter. Appears to be responding to IV Zosyn, will likely require minimum of 10 days of IV antibiotic therapy. Will follow. (2) Complicated UTI (urinary tract infection): (3) Urinary retention due to benign prostatic hyperplasia: History of Present Illness Reason for Consultation: Gram-negative bacteremia Attending Physician: Fanny Leger DO History of Present Illness History obtained from medical records and medical staff as patient unable to provide adequate history. 78-year-old male with history of dementia, schizoaffective disorder, hypertension, prior CVA, admitted earlier this month with sepsis and urinary tract infection. Urine culture grew corynebacterium, 1 set of blood cultures w ere positive for streptococcal species, another positive for Veillonella. Patient was eventually discharged on oral Augmentin, with indwelling Guy catheter for retention. He is now [facility]. He was started on IV Zosyn, and blood cultures now reported positive for gram-negative cocci. Patient currently complains of mild suprapubic pain and weakness, offers no other localizing complaints. Allergies Allergy/AdvReac Type Severity Reaction Status Date / Time olanzapine Allergy Mild "IT DOES Verified 02/19/19 12:05 NOT WORK" risperidone Allergy Unknown UNKNOWN Verified 02/19/19 12:05 Tricyclic Antidepressants Allergy Unknown . Uncoded 02/19/19 12:05 Flu Virus Vaccine AdvReac Unknown CAUSES Uncoded 02/19/19 12:05 PAIN AT INJECTION SITE Home Medications Home Medications Medication Instructions Recorded Confirmed Type Artificial Tears (PF) 1 drp OPB BID 11/22/18 02/19/19 History Calmoseptine 1 applic TOPICAL DAILY 11/22/18 02/19/19 History [place]'s wort 300 mg PO DAILY 11/22/18 02/19/19 History aspirin 81 mg PO DAILY 11/22/18 02/19/19 History benztropine 1 mg PO BID 11/22/18 02/19/19 History docusate sodium 100 mg PO BID 11/22/18 02/19/19 History fluphenazine decanoate 25 mg IM MONTHLY 11/22/18 02/19/19 History lorazepam 0.5 mg PO TID PRN 11/22/18 02/19/19 History memantine 10 mg PO BID 11/22/18 02/19/19 History mirtazapine 30 mg PO HS 11/22/18 02/19/19 History multivitamin 1 tab PO DAILY 11/22/18 02/19/19 History perphenazine 8 mg PO TID 11/22/18 02/19/19 History amlodipine 5 mg PO DAILY 02/08/19 02/19/19 History lisinopril 10 mg PO DAILY 02/08/19 02/19/19 History Lactobacillus acidoph-L.bulgar 4 tab PO QIDM 10 Days #40 tab 02/11/19 02/19/19 Rx [Floranex] finasteride [Proscar] 5 mg PO QAM 30 Days #30 tab 02/11/19 02/19/19 Rx tamsulosin 0.4 mg PO QAM 30 Days #30 cap 02/11/19 02/19/19 Rx Patient History Medical History Dementia (Chronic) H/O: CVA (cerebrovascular accident) (Chronic) HTN (hypertension) (Chronic) Schizoaffective disorder (Chronic) Surgical History Hx of cataract surgery (Chronic) S/P tonsillectomy (Chronic) Family History Other Hypertension Social History Preferred Language: [place] Communication Ability: Effective [employer] Pro[employer] Required: No Beliefs That Will Affect Care: None Current Living Situation: Personal Care Facility Current Living Situation Comment: [facility] Other Information That Helps Us Care for You: No Feels Safe at Home: Yes Safety Concerns: Feels Safe At This Time Smoking Status: Former smoker Hx Alcohol Use: No Hx Substance Use: No Review of Systems Review of Systems: Unobtainable due to cognitive status Physical Exam Constitutional: WD/WN, vitals as above + disheveled and comfortable; no acute distress Eyes: PERRL, conjunctivae normal, anicteric sclerae ENMT: external ear and nose normal, oropharynx normal Neck: trachea midline, no thyromegaly neck nontender Respiratory: normal respiratory effort, lungs clear to auscultation normal percussion; does not use accessory muscles Cardiovascular: Rate/Rhythm: regular rate and regular rhythm Heart Sounds: normal S1 and normal S2; no gallop, no murmur and no cardiac rub Vessels: normal peripheral pulses; no JVD Gastrointestinal (Abdomen): normal bowel sounds, soft, nontender, no hepatosplenomegaly Musculoskeletal: no cyanosis or clubbing, extremities motor strength 5/5 Spine: thoracic spine normal to inspection and lumbar spine normal to inspection; no cervical spinal tenderness Skin: no rashes, warm and dry normal turgor; no lesions Neurologic: moves all extremities and awake; no focal motor deficits and no meningeal signs Psychiatric: Orientation: oriented to person, oriented to place and cooperative Genitourinary: + meatus abnormal (Some dried blood around meatus) Blood- tinged urine in Guy Lymphatic: no cervical or axillary lymphadenopathy no inguinal lymphadenopathy Results & Data Vital Signs (Past 12 Hours) Vital Signs Temp Pulse Resp BP BP Pulse Ox 02/22/19 07:25 36.8 C 80 20 137/75 95 02/21/19 23:12 36.7 C 88 16 144/79 H 96 Laboratory Results Laboratory Results - last 48 hr 02/19/19 02/21/19 02/21/19 11:25 05:38 05:38 WBC 23.04 H D RBC 3.04 L Hgb 9.1 L Hct 26.6 L MCV 87.5 MCH 29.9 MCHC 34.2 RDW Std Deviation 48.3 H RDW Coeff of So 15.0 H Plt Count 185 MPV 9.7 Immature Gran % (Auto) 0.3 Neut % (Auto) 88.5 Lymph % (Auto) 5.2 [place] % (Auto) 4.7 Eos % (Auto) 1.2 Baso % (Auto) 0.1 Immature Gran # (Auto) 0.07 H Neut # (Auto) 20.40 H Lymph # (Auto) 1.20 [place] # (Auto) 1.08 H Eos # (Auto) 0.27 Baso # (Auto) 0.02 Toxic Vacuolation Occasional Dohle Bodies Occasional Echinocytes 1+ Sodium 143 Potassium 3.8 Chloride 113 H Carbon Dioxide 23 Anion Gap 7.0 BUN 23 H Creatinine 1.36 D Est Cr Clr Drug Dosing 47.5 Est GFR ( Amer) 57.4 Est GFR (Non-Af Amer) 49.5 BUN/Creatinine Ratio 16.8 Glucose 81 POC Lactic Acid Navneet 5.18 H Calcium 7.9 L Phosphorus Magnesium Total Bilirubin 0.5 AST 163 H ALT 76 Alkaline Phosphatase 52 Total Protein 5.1 L D Albumin 1.7 L Globulin 3.4 Albumin/Globulin Ratio 0.5 L 02/21/19 05:38 WBC RBC Hgb Hct MCV MCH MCHC RDW Std Deviation RDW Coeff of So Plt Count MPV Immature Gran % (Auto) Neut % (Auto) Lymph % (Auto) [place] % (Auto) Eos % (Auto) Baso % (Auto) Immature Gran # (Auto) Neut # (Auto) Lymph # (Auto) [place] # (Auto) Eos # (Auto) Baso # (Auto) Toxic Vacuolation Dohle Bodies Echinocytes Sodium Potassium Chloride Carbon Dioxide Anion Gap BUN Creatinine Est Cr Clr Drug Dosing Est GFR ( Amer) Est GFR (Non-Af Amer) BUN/Creatinine Ratio Glucose POC Lactic Acid [place]et Calcium Phosphorus 2.3 L Magnesium 1.8 Total Bilirubin AST ALT Alkaline Phosphatase Total Protein Albumin Globulin Albumin/Globulin Ratio Diagnostic Findings Microbiology 02/19/19 11:15 Blood Aerobic Blood Culture - Preliminary Gram negative bacilli 02/19/19 11:15 Blood Anaerobic Blood Culture - Preliminary No growth in Anaerobic bottle after 48 hours. 02/19/19 12:10 Blood Aerobic Blood Culture - Preliminary Pseudomonas aeruginosa 02/19/19 12:10 Blood Anaerobic Blood Culture - Final 02/19/19 13:30 Urine,Straight Cath Urine Culture - Preliminary Pseudomonas aeruginosa ABDOMEN AND PELVIS CT WITHOUT CONTRAST CT DOSE: 1658.06 mGy.cm HISTORY: Acute generalized abdominal pain abd pain, infection? TECHNIQUE: Multiaxial CT images of the abdomen and pelvis were performed without contrast. A dose lowering technique was utilized adhering to the principles of ALARA. COMPARISON STUDY: CT abdomen and pelvis 02/08/2019 FINDINGS: Motion limits evaluation of the lung bases. Mild bibasilar atelectasis with pulmonary nodules redemonstrated measuring up to 10 mm within the right lower lobe, better seen on comparison chest CT. Study is mildly motion degraded. Exam is also limited secondary to positioning of the patient's upper extremities. There is no pneumatosis or pneumoperitoneum. The imaged inferior cardiac chambers are moderately enlarged. Coronary arterial calcifications are noted. Moderate gallbladder distention with cholelithiasis. No definite evidence of acute cholecystitis or biliary ductal dilation. Suggestion of mild hepatic steatosis. The unenhanced liver otherwise appears unremarkable. The spleen, pancreas and right adrenal gland are unremarkable. Unchanged 2.5 cm left adrenal gland adenoma. Renal vascular calcifications are noted bilaterally. Punctate nonobstructing calculus of the inferior pole right kidney. Mild bilateral pelvocaliectasis with mild prominence of the bilateral ureters. Marked urinary bladder distention is up to 20 cm in length. Air is also noted within the nondependent urinary bladder lumen. The previously described indeterminate left renal lesions are better seen on comparison contrast-enhanced exam. Prostamegaly. Extensive calcified plaque of the abdominal aorta with mild fusiform infrarenal abdominal aortic aneurysm, 3.1 x 2.6 cm. There is no adenopathy. Mild nonspecific wall thickening of the distal esophagus. Moderate fecal retention of the rectum. There is decreased wall thickening of the distal sigmoid and rectum. No bowel obstruction identified. Air and fluid-filled mildly dilated loops of small bowel within the left lower quadrant abdomen measure up to approximately 3.2 cm transversely. Nondilated fluid-filled loops of small bowel also noted within the abdominal right lower quadrant. Noninflamed appendix. Mild generalized mesenteric and body wall edema. Degenerative changes of the spine, pelvis and hips. Healed remote left-sided rib fractures. IMPRESSION: 1. Prostamegaly with marked urinary bladder distention compatible with bladder outlet obstruction.. Air is also noted within the nondependent urinary bladder suggestive of instrumentation versus gas forming organism. Correlate with urinalysis. 2. Decreased wall thickening of the distal sigmoid colon and rectum suggests resolving proctocolitis. 3. Multiple fluid-filled loops of small bowel with mildly dilated loops in the left lower quadrant abdomen are suggestive of enteritis or ileus. No definite bowel obstruction identified. 4. Cholelithiasis with gallbladder distention. No CT evidence of acute cholecystitis. 5. Normal appendix. 6. Previously noted bibasilar pulmonary nodules and left renal lesions are b felicity seen on comparison exam. 7. Additional findings as above. Electronically signed by: Ezekiel Horner M.D. 02/19/2019 12:55 PM PG Care Time/CCT Total # of Minutes Spent Total Time Spent with Patient: Total time spent is greater than 50% in coordination of care (as documented) at patient's floor/unit and/or counseling patient:
[2019-02-22 09:31] LABS: Basophils # (auto) 0.03 K/uL (0-0.2); Basophils % (auto) 0.2 %; Eosinophils % (auto) 3.4 %; Hematocrit (blood only) 31.5 % (42-52); Hemoglobin 10.5 g/dL (14.0-18.0); Immature Granulocytes # (auto) 0.06 K/uL (0.00-0.02); Immature Granulocytes % (auto) 0.4 %; Lymphocytes # (auto) 1.49 K/uL (1.2-3.4); Lymphocytes % (auto) 10.2 %; Mean Corpuscular Hemoglobin 29.5 pg (25-34); Mean Corpuscular Hgb Conc 33.3 g/dL (32-36); Mean Corpuscular Volume 88.5 fL (80-100); Mean Platelet Volume 10.1 fL (7.4-10.4); Monocytes # (auto) 0.69 K/uL (0.11-0.59); Monocytes % (auto) 4.7 %; Neutrophils # (auto) 11.79 K/uL (1.4-6.5); Neutrophils % (auto) 81.1 %; Platelet Count 222 K/uL (130-400); RDW Coefficient of Variation 14.9 % (11.5-14.5); RDW Standard Deviation 48.5 fL (36.4-46.3); Red Blood Count 3.56 M/uL (4.7-6.1); White Blood Count 14.56 K/uL (4.8-10.8)
[2019-02-22 10:00] LABS: BUN Creatinine Ratio 13.4 (10-20); Calcium 8.7 mg/dl (8.5-10.1); Creatinine Clr Calc Pharmacy 49.7 ml/min; Est GFR (African American) 60.6; Est GFR (Non-African American) 52.3; Potassium 3.9 mmol/L (3.5-5.1)
--- NOTE | 2019-02-22 14:14 | Hospitalist Progress Note ---
Date of Service February 22, 2019 Assessment & Plan (1) Sepsis: 2/2 UTI and bacteremia. Resuscitated and doing well on current antibiotic therapy. (2) Complicated UTI (urinary tract infection): Traumatic stafford damage with traumatic reinsertion. Urinary retention and infection discovered. Urology following and recommending continuing Stafford in place for the next two weeks. Cont Zosyn. (3) Bacteremia: 2/2 Pseudomonas. Per ID recommends 10 days of IV zosyn. Will hold on PICC line until blood cultures are clear and patient has decided on a new place to live. He has decided to move elsewhere. (4) Traumatic hematuria: Stafford in place, cont plan as above. (5) Acute kidney injury: resolving with treatment of septicemia. (6) HTN (hypertension): Controlled on lisinopril 10mg daily. Cont holding Norvasc for now. (7) Elevated troponin: 2/2 demand ischemia in setting of sepsis. No further cardiac workup required. 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 Stable without overt blood loss. Cont to monitor and outpatient PCP for follow-up. (12) DVT prophylaxis: Lovenox Full Dispo-patient declines going back to [facility] because he doesn't like the food. Will discuss with Case Management his options. 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 Review of Systems Review of Systems: All systems reviewed & are unremarkable except as noted in HPI & below Physical Exam Physical Exam: CONSTITUTIONAL: WNWD, vitals as above, generally well- appearing EYES: normal conjunctivae, no scleral icterus ENT: MMM, large growth on right side of mouth. NECK: trachea midline, no lymphadenopathy, normal thyroid RESPIRATORY: clear to auscultation bilaterally, no crackles, rales or wheezes, normal respiratory effort CARDIOVASCULAR: regular rate and rhythm, S1 and 2 heard without murmurs, gallop s or rubs, no peripheral edema GASTROINTESTINAL: soft, nontender, nondistended MUSCULOSKELETAL: strength intact throughout, head is normocephalic and atraumatic SKIN: warm and dry : beefy red irritation around tip of penis with swelling and catheter in place. NEUROLOGIC: no facial palsy, CN 2-12 grossly intact, normal cognition, normal speech, no gross focal deficits. PSYCHIATRIC: alert cooperative and oriented to person, place and time. Results & Data Vital Signs (Past 12 Hours) Vital Signs Temp Pulse Resp BP Pulse Ox 02/22/19 07:25 36.8 C 80 20 137/75 95 Laboratory Results Short CBC 02/22/19 Range/Units 08:53 WBC 14.56 H (4.8-10.8) K/uL Hgb 10.5 L (14.0-18.0) g/dL Hct 31.5 L (42-52) % Plt Count 222 (130-400) K/uL BMP 02/22/19 08:53 Sodium 142 Potassium 3.9 Chloride 110 H Carbon Dioxide 25 BUN 17 Creatinine 1.30 Glucose 99 Calcium 8.7 Medications Administered Current Inpatient Medications Acetaminophen (Tylenol) 650 mg PO Q4H PRN PRN Reason: Pain or Fever Stop: 03/21/19 15:12 Last Admin: 02/22/19 08:30 Dose: 650 mg Documented by: Artificial Tears (Artificial Tears) 1 drops OP BID [facility] Stop: 03/21/19 15:44 Last Admin: 02/22/19 08:33 Dose: 1 drops Documented by: Benztropine Mesylate (Cogentin) 1 mg PO BID [facility] Stop: 03/21/19 20:59 Last Admin: 02/22/19 08:39 Dose: 1 mg Documented by: Calamine/Phenol (Calmoseptine) 1 appln EXT DAILY [facility] Stop: 03/22/19 08:59 Last Admin: 02/22/19 08:33 Dose: 1 appln Documented by: Docusate Sodium (Colace) 100 mg PO BID [facility] Stop: 03/21/19 20:59 Last Admin: 02/22/19 08:44 Dose: 100 mg Documented by: Finasteride (Proscar) 5 mg PO QAM [facility] Stop: 03/22/19 08:59 Last Admin: 02/22/19 08:39 Dose: 5 mg Documented by: Piperacillin Sod/Tazobactam (Sod 3.375 gm/ Dextrose) 115 mls @ 28.75 mls/hr IV Q8H [facility]; Protocol Stop: 03/05/19 17:59 Last Infusion: 02/22/19 13:38 Dose: Infused Documented by: Lactobacillus Acidophilus (Floranex) 4 tab PO QIDM [facility] Stop: 03/21/19 16:59 Last Admin: 02/22/19 11:14 Dose: 4 tab Documented by: Lisinopril (Zestril) 10 mg PO QAM [facility] Stop: 03/23/19 08:59 Last Admin: 02/22/19 08:36 Dose: 10 mg Documented by: Lorazepam (Ativan) 0.5 mg PO TID PRN PRN Reason: Anxiety Stop: 03/21/19 15:12 Memantine (Namenda) 10 mg PO BID [facility] Stop: 03/21/19 20:59 Last Admin: 02/22/19 08:39 Dose: 10 mg Documented by: Mirtazapine (Remeron) 30 mg PO HS [facility] Stop: 03/21/19 20:59 Last Admin: 02/21/19 20:06 Dose: 30 mg Documented by: Miscellaneous Information (Consult) 1 ea N/A UD PRN PRN Reason: Consult Stop: 03/21/19 11:56 Multivitamins (Multivitamin Tab) 1 tab PO DAILY [facility] Stop: 03/22/19 08:59 Last Admin: 02/22/19 08:34 Dose: 1 tab Documented by: Ondansetron HCl (Zofran) 4 mg IV Q6H PRN PRN Reason: Nausea Stop: 03/21/19 15:12 Perphenazine (Trilafon) 8 mg PO TID [facility] Stop: 03/21/19 20:59 Last Admin: 02/22/19 13:08 Dose: 8 mg Documented by: Polyethylene Glycol (Miralax Powder Packet) 17 gm PO DAILY PRN PRN Reason: Constipation Stop: 03/21/19 15:12 Tamsulosin HCl (Flomax) 0.4 mg PO QAM [facility] Stop: 03/22/19 08:59 Last Admin: 02/22/19 08:40 Dose: 0.4 mg Documented by: (1) Dysphagia Dysphagia type: unspecified Qualified Code(s): R13.10 - Dysphagia, unspecified (2) Schizoaffective disorder Schizoaffective disorder type: unspecified Qualified Code(s): F25.9 - Schizoaffective disorder, unspecified (3) Sepsis Sepsis acute organ dysfunction status: unspecified Sepsis type: sepsis due to unspecified organism Qualified Code(s): A41.9 - Sepsis, unspecified organism
[2019-02-22] MEDS ORDERED: TRAMADOL HCL 50 MG TABLET PO PRN (18:02)
[2019-02-22] MEDS ORDERED: TRAMADOL HCL 50 MG TABLET PO STA (18:02)
[2019-02-22] MEDS: LIDOCAINE 2% JELLY 5 ML TUBE EXT SCH (18:30)
[2019-02-22] MEDS: MIRTAZAPINE TAB 15 MG TAB PO SCH (20:15)
[2019-02-23] MEDS: LIDOCAINE 2% JELLY 5 ML TUBE EXT SCH ×3 (00:39→13:32)
[2019-02-23] MEDS: PIPERACILLIN/TAZOBACTAM 3.375 GM in DEXTROSE 5% 100 ML IV SCH ×3 (01:32→19:03)
[2019-02-23 06:11] LABS: Hemoglobin 9.7 g/dL (14.0-18.0); Mean Corpuscular Hemoglobin 29.3 pg (25-34); Mean Corpuscular Hgb Conc 33.4 g/dL (32-36); Mean Corpuscular Volume 87.6 fL (80-100); Mean Platelet Volume 9.8 fL (7.4-10.4); Platelet Count 248 K/uL (130-400); RDW Coefficient of Variation 14.7 % (11.5-14.5); RDW Standard Deviation 47.5 fL (36.4-46.3); Red Blood Count 3.31 M/uL (4.7-6.1); White Blood Count 14.07 K/uL (4.8-10.8)
[2019-02-23 06:47] LABS: BUN Creatinine Ratio 13.7 (10-20); Calcium 8.4 mg/dl (8.5-10.1); Creatinine Clr Calc Pharmacy 56.8 ml/min; Est GFR (Non-African American) 61.3; Potassium 3.7 mmol/L (3.5-5.1)
[2019-02-23] MEDS: MENTHOL-ZINC OXIDE 360 APPLN/120 GM TUBE EXT SCH (10:21)
[2019-02-23] MEDS: ARTIFICIAL TEARS OP SCH ×2 (10:21→20:06)
[2019-02-23] MEDS: LACTOBACILLUS ACIDOPHILUS (FLORANEX) TAB PO SCH ×4 (10:21→20:07)
[2019-02-23] MEDS: BENZTROPINE MESYLATE 1 MG TAB PO SCH ×2 (10:22→20:08)
[2019-02-23] MEDS: ASPIRIN 81 MG ECTAB PO SCH (10:29)
[2019-02-23] MEDS: MULTIVITAMIN TAB PO SCH (10:29)
[2019-02-23] MEDS: TAMSULOSIN HCL 0.4 MG CAP PO SCH (10:29)
[2019-02-23] MEDS: MEMANTINE HCL 10 MG TAB PO SCH ×2 (10:30→20:09)
[2019-02-23] MEDS: FINASTERIDE 5 MG TAB PO SCH (10:30)
[2019-02-23] MEDS: PERPHENAZINE 2 MG TABLET PO SCH ×3 (10:30→20:07)
[2019-02-23] MEDS: lisinopriL 10 MG TAB PO SCH (10:31)
[2019-02-23] MEDS: DOCUSATE SODIUM 100 MG CAP PO SCH ×2 (10:37→20:13)
--- NOTE | 2019-02-23 13:17 | Hospitalist Progress Note ---
Date of Service February 23, 2019 Assessment & Plan (1) Sepsis: 2/2 UTI and bacteremia. Resuscitated and doing well on current antibiotic therapy. (2) Complicated UTI (urinary tract infection): Traumatic stafford damage with traumatic reinsertion. Urinary retention and infection discovered. Urology following and recommending continuing Stafford in place for the next two weeks. Cont Zosyn pending finalized cultures. Appreciate ID input. (3) Bacteremia: 2/2 Pseudomonas. Per ID recommends 10 days of IV zosyn. Will hold on PICC line until blood cultures are clear. (4) Traumatic hematuria: Stafford in place, cont plan as above. (5) Acute kidney injury: resolving with treatment of septicemia. (6) HTN (hypertension): Controlled on lisinopril 10mg daily. Cont holding Norvasc for now. (7) Elevated troponin: 2/2 demand ischemia in setting of sepsis. No further cardiac workup required. 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 Stable without overt blood loss. Cont to monitor and outpatient PCP for follow-up. (12) DVT prophylaxis: Lovenox Full Dispo-plan for [facility] at discharge per case management. Possible DC over the weekend pending ID recommendations. Fanny Leger DO [facility] Hospitalist Subjective 78-year-old man reporting some right shoulder and neck pain today. He is status post fall prior to admission and shoulder x-ray at that time did not reveal any fracture or dislocation. We discussed conservative measures in which he is in agreement including scheduled Tylenol, BenGay and heat. He denies any fevers or chills and feels improved overall since admission. His urinary catheter is bothering him and on exam there is clear tension on the catheter from the leg adhesive. The nurse was notified and adjusted this. The tip of the penis is also beefy red with some dried blood around it. Patient reports lidocaine jelly is helping with pain and discomfort. Otherwise he is tolerating food and mentating at baseline. Per case management we have clearance to move to a different facility upon discharge. Review of Systems Review of Systems: All systems reviewed & are unremarkable except as noted in HPI & below Physical Exam Physical Exam: CONSTITUTIONAL: WNWD, vitals as above, generally well- appearing EYES: normal conjunctivae, no scleral icterus ENT: MMM, large hemangioma on lateral mouth NECK: tender trap and strap muscles to posterior neck and shoulders. RESPIRATORY: clear to auscultation bilaterally, no crackles, rales or wheezes, normal respiratory effort CARDIOVASCULAR: regular rate and rhythm, S1 and 2 heard without murmurs, gallops or rubs, no peripheral edema GASTROINTESTINAL: soft, nontender, nondistended MUSCULOSKELETAL: strength intact throughout, head is normocephalic and atraumatic SKIN: warm and dry : beefy red irritation around tip of penis with swelling and catheter in place. NEUROLOGIC: no facial palsy, CN 2-12 grossly intact, normal cognition, normal speech, no gross focal deficits. PSYCHIATRIC: alert cooperative and oriented to person, place and time. Results & Data Vital Signs (Past 12 Hours) Vital Signs Temp Pulse Resp BP Pulse Ox 02/23/19 07:00 37.0 C 92 H 18 132/74 95 Laboratory Results Short CBC 02/23/19 Range/Units 05:37 WBC 14.07 H (4.8-10.8) K/uL Hgb 9.7 L (14.0-18.0) g/dL Hct 29.0 L (42-52) % Plt Count 248 (130-400) K/uL BMP 02/23/19 05:37 Sodium 142 Potassium 3.7 Chloride 109 H Carbon Dioxide 26 BUN 16 Creatinine 1.14 Glucose 110 H Calcium 8.4 L Medications Administered Current Inpatient Medications Acetaminophen (Tylenol) 650 mg PO Q4H PRN PRN Reason: Pain or Fever Stop: 03/21/19 15:12 Last Admin: 02/22/19 16:51 Dose: 650 mg Documented by: Artificial Tears (Artificial Tears) 1 drops OP BID [facility] Stop: 03/21/19 15:44 Last Admin: 02/23/19 10:21 Dose: 1 drops Documented by: Aspirin (Ecotrin Ectab) 81 mg PO DAILY [facility] Stop: 03/25/19 08:59 Last Admin: 02/23/19 10:29 Dose: 81 mg Documented by: Benztropine Mesylate (Cogentin) 1 mg PO BID [facility] Stop: 03/21/19 20:59 Last Admin: 02/23/19 10:22 Dose: 1 mg Documented by: Calamine/Phenol (Calmoseptine) 1 appln EXT DAILY [facility] Stop: 03/22/19 08:59 Last Admin: 02/23/19 10:21 Dose: 1 appln Documented by: Docusate Sodium (Colace) 100 mg PO BID [facility] Stop: 03/21/19 20:59 Last Admin: 02/23/19 10:37 Dose: 100 mg Documented by: Finasteride (Proscar) 5 mg PO QAM [facility] Stop: 03/22/19 08:59 Last Admin: 02/23/19 10:30 Dose: 5 mg Documented by: Piperacillin Sod/Tazobactam (Sod 3.375 gm/ Dextrose) 115 mls @ 28.75 mls/hr IV Q8H [facility]; Protocol Stop: 03/05/19 17:59 Last Admin: 02/23/19 10:31 Dose: 28.8 mls/hr Documented by: Lactobacillus Acidophilus (Floranex) 4 tab PO QIDM [facility] Stop: 03/21/19 16:59 Last Admin: 02/23/19 10:21 Dose: 4 tab Documented by: Lisinopril (Zestril) 10 mg PO QAM [facility] Stop: 03/23/19 08:59 Last Admin: 02/23/19 10:31 Dose: 10 mg Documented by: Lorazepam (Ativan) 0.5 mg PO TID PRN PRN Reason: Anxiety Stop: 03/21/19 15:12 Memantine (Namenda) 10 mg PO BID [facility] Stop: 03/21/19 20:59 Last Admin: 02/23/19 10:30 Dose: 10 mg Documented by: Mirtazapine (Remeron) 30 mg PO HS [facility] Stop: 03/21/19 20:59 Last Admin: 02/22/19 20:15 Dose: 30 mg Documented by: Miscellaneous Information (Consult) 1 ea N/A UD PRN PRN Reason: Consult Stop: 03/21/19 11:56 Multivitamins (Multivitamin Tab) 1 tab PO DAILY [facility] Stop: 03/22/19 08:59 Last Admin: 02/23/19 10:29 Dose: 1 tab Documented by: Ondansetron HCl (Zofran) 4 mg IV Q6H PRN PRN Reason: Nausea Stop: 03/21/19 15:12 Perphenazine (Trilafon) 8 mg PO TID [facility] Stop: 03/21/19 20:59 Last Admin: 02/23/19 10:30 Dose: 8 mg Documented by: Polyethylene Glycol (Miralax Powder Packet) 17 gm PO DAILY PRN PRN Reason: Constipation Stop: 03/21/19 15:12 Tamsulosin HCl (Flomax) 0.4 mg PO QAM [facility] Stop: 03/22/19 08:59 Last Admin: 02/23/19 10:29 Dose: 0.4 mg Documented by: Tramadol HCl (Ultram) 50 mg PO Q6H PRN PRN Reason: Pain Stop: 03/24/19 18:01 Last Admin: 02/23/19 04:03 Dose: 50 mg Documented by: (1) Dysphagia Dysphagia type: unspecified Qualified Code(s): R13.10 - Dysphagia, unspecified (2) Schizoaffective disorder Schizoaffective disorder type: unspecified Qualified Code(s): F25.9 - Schizoaffective disorder, unspecified (3) Sepsis Sepsis acute organ dysfunction status: unspecified Sepsis type: sepsis due to unspecified organism Qualified Code(s): A41.9 - Sepsis, unspecified organism
[2019-02-23] MEDS ORDERED: LIDOCAINE 2% JELLY 5 ML TUBE EXT PRN (14:17)
[2019-02-23] MEDS ORDERED: TROLAMINE SALICYLATE 10% CRM 255 APPLN/85 GM TUBE EXT PRN (14:17)
[2019-02-23] MEDS ORDERED: CALCIUM CARBONATE 500 MG CHEWABLE TAB PO PRN (14:19)
[2019-02-23] MEDS: ACETAMINOPHEN 325 MG TAB PO SCH ×2 (15:53→23:15)
[2019-02-23] MEDS: MIRTAZAPINE TAB 15 MG TAB PO SCH (20:08)
[2019-02-24] MEDS: PIPERACILLIN/TAZOBACTAM 3.375 GM in DEXTROSE 5% 100 ML IV SCH (01:17)
[2019-02-24 07:49] LABS: Hematocrit (blood only) 28.8 % (42-52); Hemoglobin 9.7 g/dL (14.0-18.0); Mean Corpuscular Hemoglobin 29.5 pg (25-34); Mean Corpuscular Hgb Conc 33.7 g/dL (32-36); Mean Corpuscular Volume 87.5 fL (80-100); Mean Platelet Volume 9.3 fL (7.4-10.4); Platelet Count 249 K/uL (130-400); RDW Coefficient of Variation 14.7 % (11.5-14.5); RDW Standard Deviation 46.7 fL (36.4-46.3); Red Blood Count 3.29 M/uL (4.7-6.1); White Blood Count 11.71 K/uL (4.8-10.8)
[2019-02-24 08:18] LABS: BUN Creatinine Ratio 13.6 (10-20); Calcium 8.5 mg/dl (8.5-10.1); Creatinine Clr Calc Pharmacy 62.3 ml/min; Est GFR (African American) 79.3; Est GFR (Non-African American) 68.4; Potassium 3.9 mmol/L (3.5-5.1)
[2019-02-24] MEDS: ASPIRIN 81 MG ECTAB PO SCH (08:32)
[2019-02-24] MEDS: BENZTROPINE MESYLATE 1 MG TAB PO SCH (08:32)
[2019-02-24] MEDS: ARTIFICIAL TEARS OP SCH (08:33)
[2019-02-24] MEDS: TAMSULOSIN HCL 0.4 MG CAP PO SCH (08:33)
[2019-02-24] MEDS: FINASTERIDE 5 MG TAB PO SCH (08:33)
[2019-02-24] MEDS: MENTHOL-ZINC OXIDE 360 APPLN/120 GM TUBE EXT SCH (08:33)
[2019-02-24] MEDS: MULTIVITAMIN TAB PO SCH (08:34)
[2019-02-24] MEDS: MEMANTINE HCL 10 MG TAB PO SCH (08:34)
[2019-02-24] MEDS: ACETAMINOPHEN 325 MG TAB PO SCH ×2 (08:34→15:38)
[2019-02-24] MEDS: lisinopriL 10 MG TAB PO SCH (08:34)
[2019-02-24] MEDS: PERPHENAZINE 2 MG TABLET PO SCH ×2 (08:35→13:45)
[2019-02-24] MEDS: LACTOBACILLUS ACIDOPHILUS (FLORANEX) TAB PO SCH ×2 (08:35→11:11)
[2019-02-24] MEDS: DOCUSATE SODIUM 100 MG CAP PO SCH (08:39)
[2019-02-24] MEDS ORDERED: CIPROFLOXACIN 250 MG TAB PO SCH (09:30)
--- NOTE | 2019-02-24 15:40 | Discharge Summary ---
Date of Service February 24, 2019 Admission HPI Per Admitting Provider This is a 78yo M from with a PMH of vascular dementia, schizoaffective disorder, HTN, history of CVA and other medical problems listed below from [facility] in [place] who presents with confusion since last evening. Staff reports finding patient confused and covered in feces and sent him in for further evaluation. Currently, patient is endorsing fatigue and generalized weakness as well as some suprapubic pain. Denies any fever, chills, lightheadedness, visual changes, chest pain, palpitations, shortness of breath, dysuria, diarrhea or constipation. History is somewhat limited due to patient's vascular dementia. No family or staff at bedside. Was recently admitted from February 08- for sepsis 2/2 UTI and acute kidney injury. Urine culture grew Corynebacterium. Blood cultures were negative. Patient was discharged back to [facility] with 4 days remaining of Augmentin and was also started on Flomax and Finasteride. Had a urine stafford catheter in place and was instructed to follow up with Dr. Charles next week. Patient afebrile with BP 102/67 and heart rate of 115. Found to have leukocytosis of 54K with initial lactic acid 5 and troponin of 0.340. Creatinine elevated at 2.8 (baseline ~1.2). Urinalysis with blood, leuk esterase and urine bacteria present. CT abdomen pelvis with prostamegaly with marked urinary bladder distention compatible with bladder outlet obstruction. Air is also noted within the nondependent urinary bladder suggestive of instrumentation versus gas forming organism. Also with evidence of resolving proctocolitis. Given 2.5 L IV fluid resuscitation in ED and started on empiric Zosyn and Vanc. Admission Exam Per Admitting Provider General Appearance: WD/WN, vitals as above, NAD, sleeping intermittently but answers questions appropriately Head: normocephalic, atraumatic Eyes: normal inspection, PERRL, conjunctivae normal, anicteric sclerae ENT: external ear and nose normal, oropharynx dry mucous membranes , + upper lip hemangioma Neck: trachea midline, no thyromegaly normal visual inspection Respiratory: normal respiratory effort, lungs clear to auscultation, no wheeze, rales, rhonchi. Normal insp/exp effort, no accessory muscle use Cardiovascular: regular rate, rhythm, no murmur, normal peripheral pulses. Vessels: no JVD or carotid bruit Chest: normal inspection of chest Abdomen/GI: normal bowel sounds, soft, nontender, no hepatosplenomegaly : Stafford catheter draining reddish urine. Dried blood surrounding catheter insertion site at penis Extremities/Musculoskelatal: no cyanosis or clubbing, extremities motor strength 5/5 Neurologic: PERRL, EOMI, accommodation nl, no face palsy, no dysarthria CN's II-XI intact bilaterally and moves all extremities Psychiatric: A+O to person, place and time, not fully to situation. Euthymic affect Skin: no rashes, normal color, warm/dry Principal Diagnosis Pseudomonas septicemia Complicated UTI Urinary retention with trauma Traumatic hematuria COLT-resolved Anemia new pulmonary nodule Discharge Exam CONSTITUTIONAL: WNWD, vitals as above, generally well-appearing EYES: normal conjunctivae, no scleral icterus ENT: MMM, large hemangioma on lateral mouth NECK: tender trap and strap muscles to posterior neck and shoulders. RESPIRATORY: clear to auscultation bilaterally, no crackles, rales or wheezes, normal respiratory effort CARDIOVASCULAR: regular rate and rhythm, S1 and 2 heard without murmurs, gallops or rubs, no peripheral edema GASTROINTESTINAL: soft, nontender, nondistended MUSCULOSKELETAL: strength intact throughout, head is normocephalic and atraumatic SKIN: warm and dry : beefy red irritation around tip of penis with swelling and catheter in place. NEUROLOGIC: no facial palsy, CN 2-12 grossly intact, normal cognition, normal speech, no gross focal deficits. PSYCHIATRIC: alert cooperative and oriented to person, place and time. Discharge Data Allergies Allergy/AdvReac Type Severity Reaction Status Date / Time olanzapine Allergy Mild "IT DOES Verified 02/19/19 12:05 NOT WORK" risperidone Allergy Unknown UNKNOWN Verified 02/19/19 12:05 Tricyclic Antidepressants Allergy Unknown . Uncoded 02/19/19 12:05 Flu Virus Vaccine AdvReac Unknown CAUSES Uncoded 02/19/19 12:05 PAIN AT INJECTION SITE Consultations 02/19/19 13:28 ED Decision to Admit Stat 02/19/19 15:13 Consult Case Management - Discharge Planning Routine 02/20/19 08:00 Consult Urology Routine 02/22/19 08:00 Consult Infectious Diseases Routine Ordered Studies 02/19/19 10:29 CT head/brain wo con Stat 02/19/19 11:56 CT abd pelvis wo con Stat Hospital Course (1) Sepsis: (2) Bacteremia: (3) Traumatic hematuria: (4) Acute kidney injury: (5) Demand ischemia: (6) Complicated UTI (urinary tract infection): Traumatic stafford damage with traumatic reinsertion in the ER. Urinary retention and infection discovered. Initially started on vancomycin and Zosyn. Urology was consulted and recommended continued broad-spectrum antibiotics with continuation of Stafford catheter for at least 10 to 14 days. Trial of void was recommended in the Urology office after this time. Consideration was given for cystoscopy at the time of catheter removal to better assess the patient's drainage and other issues. He was found to have positive blood cultures for Pseudomonas that was also growing in his urine. Zosyn was continued by the infectious diseases specialist. He continued to improve clinically and was doing well. He required help with lidocaine jelly for some irritation at the urethral tip because of presence of the Stafford catheter. Discharge recommendations from infectious disease included ciprofloxacin 750 mg twice a day x7 days of therapy. At time of discharge she was hemodynamically stable and afebrile and tolerating p.o. He was mentating and ambulating at baseline and was somewhat deconditioned secondary to prolonged hospitalization. He was discharged in stable condition with close primary care follow-up recommended. Total Time Total Time Spent Total Time Spent (In Minutes): 60 Total Time Includes: Examination of the Patient, Discharge Planning, Medication Reconciliation and Communication With Other Providers Discharge Plan Discharge Items Patient Disposition: Transfer Usp Fac Reason For Visit: SEPSIS,UTI,COLT Discharge Diagnosis: Pseudomonas septicemia Complicated UTI Urinary retention with trauma Traumatic hematuria COLT-resolved Anemia new pulmonary nodule Condition on Discharge: Good Activity: Per Instructions section Activity Comment: per receiving facility Non-emergency contact: Primary Care Provider Call non-emergency contact if: you have any medication questions, your symptoms worsen, your pain is not controlled, your pain is worsening, your pain is unusual for you, your pain is concerning for you and you have a fever Follow-up/Referrals: GWEN ORTIZ GENIE [Primary Care Provider] - Diet: Low Sodium (2gm) Diet Texture: Dental soft (bite-sized) Addtl Attending Provider Instructions: Please continue the antibiotics for 14 days. You will need bloodwork in one week (CBC without diff, Basic Metabolic Panel). This can be drawn at the receiving facility and reviewed by the physician on staff. This antibiotic carries a risk of possible tendonitis and even can cause tendon rupture on rare occasions. If you have any pain in your heels or other tendons, please notify your provider right away. It is recommended that you follow-up with your primary care provider within one week of discharge from the hospital to ensure you are still doing well. Also, you will need a repeat CT scan of the chest ordered to re-evaluate a new lung nodule that was seen on the chest CT here. The nodule was spiculated and requires a repeat CT scan in 1-2 months. Please follow-up with Dr. Lavelle Buchanan with [facility] in 2 weeks to discuss your Stafford catheter and possible removal. Please leave the Stafford catheter in until that time. Please have staff at [facility] [place] help you coordinate these visits. You are also being provided lidocaine jelly to use as a local anesthetic around the catheter insertion site if you have pain. It was a pleasure taking care of you! Please call if you have any questions or problems. You can reach a [facility] [address] hospitalist on duty at [facility] 24 hours a day by calling [phone]. Take care of yourself. Fanny Leger, DO [facility] Pending Studies at Discharge: Yes Studies:: final blood cultures were pending at time of discharge with preliminary negative reading. Stand-Alone Forms: My [facility] Skilled Items Patient informed of condition?: Yes DNR: No Discharge Level of Care: Skilled Communicable Disease: No Discharge Prognosis: Stable Lines: None Urinary Catheter: Yes Medications and DC Order Prescriptions: New ciprofloxacin HCl 250 mg Tablet 750 mg PO Q12 13 Days Qty: 78 RF: 0 lidocaine HCl 2 % Jelly 10 ml EXT Q6H PRN (Reason: pain at urinary cath site) Qty: 50 RF: 1 Continued lisinopril 10 mg Tablet 10 mg PO DAILY RF: 0 tamsulosin 0.4 mg Capsule 0.4 mg PO QAM 30 Days Qty: 30 RF: 0 finasteride [Proscar] 5 mg Tablet 5 mg PO QAM 30 Days Qty: 30 RF: 0 multivitamin Tablet 1 tab PO DAILY RF: 0 aspirin 81 mg Tablet,Delayed Release (Dr/Ec) 81 mg PO DAILY RF: 0 lorazepam 0.5 mg Tablet 0.5 mg PO TID PRN (Reason: Anxiety) RF: 0 fluphenazine decanoate 25 mg/mL Solution 25 mg IM MONTHLY RF: 0 mirtazapine 30 mg Tablet 30 mg PO HS RF: 0 benztropine 1 mg Tablet 1 mg PO BID RF: 0 perphenazine 8 mg Tablet 8 mg PO TID RF: 0 docusate sodium 100 mg Tablet 100 mg PO BID RF: 0 [place]'s wort 300 mg Capsule 300 mg PO DAILY RF: 0 Artificial Tears (PF) Dropperette 1 drp OPB BID RF: 0 memantine 10 mg Tablet 10 mg PO BID RF: 0 Calmoseptine 0.44-20.6 % Ointment 1 applic TOPICAL DAILY RF: 0 Discontinued amlodipine 5 mg Tablet 5 mg PO DAILY RF: 0 Discharge Orders: Discharge Order (Routine); Ordered 02/24/19 Ordered By: Fanny Leger Admission Data Admit Date/Time: 02/19/19 14:28 Attending Provider: Fanny Leger Admit Provider: Evelin Joseph Primary Care Provider: GWEN ORTIZ [facility] ; Evelin Joseph ; Brandon Shah ; Todd Danielle Other Interventions: Discharge Summary Assessment (RN) Last Done: 02/24/19 15:13 DC Date/Time DO NOT enter until pt leaves facility: 02/24/19 16:30
--- NOTE | 2019-02-24 18:01 | Infectious Disease Progress Nt ---
Date of Service February 24, 2019 Assessment & Plan (1) Pseudomonas sepsis: 78-year-old male with pseudomonal sepsis from urinary tract infection in the setting of urinary retention and indwelling Guy catheter. Given resistance of second isolate, patient to be changed to ciprofloxacin 750 mg twice daily, and will give 7 days of therapy after repeat negative blood cultures to ensure adequacy of therapy. Discussed with hospitalist. Will follow. (2) Complicated UTI (urinary tract infection): (3) Urinary retention due to benign prostatic hyperplasia: Subjective Patient seen in follow-up for pseudomonal sepsis and urinary tract infection. Complaining of pain from his catheter, as well as pain in her shoulders from recent fall. Remains afebrile, hemodynamically stable. Review of Systems Review of Systems: All systems reviewed & are unremarkable except as noted in HPI & below Physical Exam Constitutional: WD/WN, vitals as above + disheveled and comfortable; no acute distress Eyes: PERRL, conjunctivae normal, anicteric sclerae ENMT: external ear and nose normal, oropharynx normal Neck: trachea midline, no thyromegaly neck nontender Respiratory: normal respiratory effort, lungs clear to auscultation normal percussion; does not use accessory muscles Cardiovascular: Rate/Rhythm: regular rate and regular rhythm Heart Sounds: normal S1 and normal S2; no gallop, no murmur and no cardiac rub Vessels: normal peripheral pulses; no JVD Gastrointestinal (Abdomen): normal bowel sounds, soft, nontender, no hepatosplenomegaly Musculoskeletal: no cyanosis or clubbing, extremities motor strength 5/5 Spine: thoracic spine normal to inspection and lumbar spine normal to inspection; no cervical spinal tenderness Skin: no rashes, warm and dry normal turgor; no lesions Neurologic: moves all extremities and awake; no focal motor deficits and no meningeal signs Psychiatric: Orientation: oriented to person, oriented to place and cooperative Genitourinary: + meatus abnormal (Some dried blood around meatus) Lymphatic: no cervical or axillary lymphadenopathy no inguinal lymphadeno gloria Results & Data Vital Signs (Past 12 Hours) Vital Signs Temp Pulse Pulse Resp BP BP Pulse Ox 02/24/19 16:27 22 02/24/19 15:18 36.6 C 90 50 H 109/70 98 02/24/19 15:13 36.3 C L 70 98 H 18 153/80 H 123/69 98 02/24/19 07:51 36.3 C L 70 18 153/80 H 98 Laboratory Results Short CBC 02/24/19 Range/Units 07:35 WBC 11.71 H (4.8-10.8) K/uL Hgb 9.7 L (14.0-18.0) g/dL Hct 28.8 L (42-52) % Plt Count 249 (130-400) K/uL BMP 02/24/19 07:35 Sodium 141 Potassium 3.9 Chloride 111 H Carbon Dioxide 25 BUN 14 Creatinine 1.04 Glucose 87 Calcium 8.5 Diagnostic Findings Microbiology 02/19/19 11:15 Blood Aerobic Blood Culture - Preliminary Pseudomonas aeruginosa Pseudomonas aeruginosa#2 02/19/19 11:15 Blood Anaerobic Blood Culture - Final No growth in Anaerobic bottle after 5 days. 02/22/19 09:05 Blood Aerobic Blood Culture - Preliminary No growth in Aerobic bottle after 48 hours. 02/22/19 09:05 Blood Anaerobic Blood Culture - Preliminary No growth in Anaerobic bottle after 48 hours. 02/22/19 08:53 Blood Aerobic Blood Culture - Preliminary No growth in Aerobic bottle after 48 hours. 02/22/19 08:53 Blood Anaerobic Blood Culture - Preliminary No growth in Anaerobic bottle after 48 hours. 02/19/19 12:10 Blood Aerobic Blood Culture - Final Pseudomonas aeruginosa 02/19/19 12:10 Blood Anaerobic Blood Culture - Final 02/19/19 13:30 Urine,Straight Cath Urine Culture - Final Pseudomonas aeruginosa PG Care Time/CCT Total # of Minutes Spent Total Time Spent with Patient: Total time spent is greater than 50% in coordination of care (as documented) at patient's floor/unit and/or counseling patient:
--- NOTE | 2019-03-02 09:02 | Coding Query ---
CODING QUERY To promote full compliance with coding requirements relating to patient care, provider participation is requested in all cases of ice hockey coach uncertainty. Please assist us with the question(s) below: Coding Question(s): Patient admitted s/p traumatic Stafford catheter with gross hematuria, UTI and Sepsis. Progress notes document "complicated UTI in the setting of a stafford catheter". Please document, if known or suspected the etiology of the UTI. Thank you . Bryson Turner [facility] Physician's Response(s): Principal Diagnosis: "that condition established after study, to be chiefly responsible for occasioning the admission of the patient to the hospital for care." Co-Existing Principal Diagnosis: "when two or more diagnoses equally meet the criteria for principal diagnosis as determined by the circumstances of admission, diagnostic work up, and/or therapy provided, and the Alphabetic Index, Tabular List, or another coding guideline does not provide sequencing direction, any one of the diagnoses may be sequenced first." "When the physician has documented what appears to be a current diagnosis in the body of the record, but has not included the diagnosis in the final diagnostic statement, the physician should be asked whether the diagnosis should be added." ([facility] 2 QTR90. p3-4) MARCIA
--- NOTE | 2019-03-03 05:34 | Coding Query ---
CODING QUERY To promote full compliance with coding requirements relating to patient care, provider participation is requested in all cases of electric lineman uncertainty. Please assist us with the question(s) below: Coding Question(s): Patient admitted with Pseudomonal Sepsis & UTI in the setting of indwelling urethral catheter. Please document, if known or suspected, the etiology of the UTI. Thank you . Bryson Turner [facility] Physician's Response(s): CAUTI Principal Diagnosis: "that condition established after study, to be chiefly responsible for occasioning the admission of the patient to the hospital for care." Co-Existing Principal Diagnosis: "when two or more diagnoses equally meet the criteria for principal diagnosis as determined by the circumstances of admission, diagnostic work up, and/or therapy provided, and the Alphabetic Index, Tabular List, or another coding guideline does not provide sequencing direction, any one of the diagnoses may be sequenced first." "When the physician has documented what appears to be a current diagnosis in the body of the record, but has not included the diagnosis in the final diagnostic statement, the physician should be asked whether the diagnosis should be added." ([facility] 2 QTR90. p3-4) MARCIA
== END 2019-02-24 16:30 | DRG 698 ==
LOC: ED 10:18 → SUATTDRO 14:28 → 2S 14:28 → 2N 02-21 08:37

== ENCOUNTER 2019-03-15 15:32 | Inpatient (IN) ==
[2019-03-15] MEDS ORDERED: SODIUM CHLORIDE 0.9% 1000ML 1,000 ML IV ONE (15:57)
[2019-03-15 16:16] LABS: Hemoglobin 11.4 g/dL (14.0-18.0); Mean Corpuscular Hemoglobin 29.2 pg (25-34); Mean Corpuscular Hgb Conc 32.6 g/dL (32-36); Mean Corpuscular Volume 89.7 fL (80-100); Mean Platelet Volume 9.8 fL (7.4-10.4); Platelet Count 327 K/uL (130-400); RDW Coefficient of Variation 14.8 % (11.5-14.5); RDW Standard Deviation 48.4 fL (36.4-46.3); White Blood Count 29.93 K/uL (4.8-10.8)
[2019-03-15 16:24] LABS: INR 1.2 (0.9-1.1); Partial Thromboplastin Ratio 0.9; Partial Thromboplastin Time 25.1 Seconds (21.0-31.0)
[2019-03-15 16:38] LABS: Basophils # (auto) 0.03 K/uL (0-0.2); Basophils % (auto) 0.1 %; Echinocytes 1+; Eosinophils # (auto) 0.25 K/uL (0-0.5); Eosinophils % (auto) 0.8 %; Immature Granulocytes # (auto) 0.15 K/uL (0.00-0.02); Immature Granulocytes % (auto) 0.5 %; Lymphocytes # (auto) 0.99 K/uL (1.2-3.4); Lymphocytes % (auto) 3.3 %; Monocytes # (auto) 1.55 K/uL (0.11-0.59); Monocytes % (auto) 5.2 %; Neutrophils # (auto) 26.96 K/uL (1.4-6.5); Neutrophils % (auto) 90.1 %
[2019-03-15] MEDS ORDERED: LACTATED RINGER'S 1,000 ML IV ONE (16:43)
[2019-03-15 16:46] LABS: Alanine Aminotransferase 13 U/L (12-78); Albumin Globulin Ratio 0.8 (0.9-2); Albumin Level 3.1 gm/dl (3.4-5.0); Alkaline Phosphatase 88 U/L (45-117); Aspartate Aminotransferase 13 U/L (15-37); BUN Creatinine Ratio 13.3 (10-20); Bilirubin,Total 0.5 mg/dl (0.2-1); Blood Urea Nitrogen 23 mg/dl (7-18); C Reactive Protein 2.77 mg/dl (0-0.29); Calcium 9.8 mg/dl (8.5-10.1); Carbon Dioxide 23 mmol/L (21-32); Chloride 109 mmol/L (98-107); Creatinine Clr Calc Pharmacy 37.9 ml/min; Est GFR (African American) 43.2; Est GFR (Non-African American) 37.3; Globulin 4.1 gm/dl (2.5-4.0); Glucose 128 mg/dl (70-99); Lipase 96 U/L (73-393); Magnesium 1.8 mg/dl (1.8-2.4); Potassium 5.1 mmol/L (3.5-5.1); Sodium 139 mmol/L (136-145); Total Protein 7.2 gm/dl (6.4-8.2); Troponin I < 0.015 ng/ml (0-0.045)
[2019-03-15] MEDS ORDERED: PIPERACILLIN/TAZOBACTAM 4.5 GM/120 ML BAG IV ONE (16:51)
[2019-03-15] MEDS ORDERED: PIPERACILL/TAZOBAC CONSULT ACTIVE PRN ×2 (16:51→21:06)
[2019-03-15 16:59] LABS: Appearance Urine Clear (Clear); Bacteria Urine Automated Negative (Negative); Bilirubin Urine Negative (Negative); Blood Urine Negative (Negative); Color Urine Yellow; Glucose Urine UA Negative (Negative); Ketones Urine Negative (Negative); Leukocyte Esterase Urine 1+ (Negative); Nitrite Urine Negative (Negative); Protein Urine Negative (Negative); RBC Urine Automated 0-4 /hpf (0-4); Specific Gravity Urine 1.016 (1.000-1.030); Urobilinogen Urine Negative (Negative); pH Urine 5.5 (4.5-7.5)
[2019-03-15 17:04] LABS: iSTAT Creatinine 1.6 mg/dl (0.6-1.3); iSTAT Hemoglobin 10.5 g/dl (14.0-18.0); iSTAT Ionized Calcium 1.1 mmol/l (1.12-1.32); iSTAT Potassium 4.7 mEq/L (3.3-5.0)
[2019-03-15 17:08] LABS: Base Excess VBG -2.5 mEq/L; HCO3 VBG 23 mmol/L; PCO2 VBG 42 mmHg (38-50); PO2 VBG 24 mmHg; pH VBG 7.35 (7.36-7.41)
--- NOTE | 2019-03-15 17:13 | XRay Report ---
XR chest 1V portable CLINICAL HISTORY: Sepsis dyspnea COMPARISON STUDY: No previous studies for comparison. FINDINGS: The bones soft tissues and hemidiaphragms are normal. The cardiomediastinal silhouette is n ormal. The lungs are clear. The pulmonary vasculature is normal. IMPRESSION: Negative chest. The above report was generated using voice recognition software. It may contain grammatical, syntax or spelling errors. Electronically signed by: Demetris Sam M.D. 03/15/2019 5:11 PM
--- NOTE | 2019-03-15 17:28 | CT Scan Report ---
CT abd pelvis wo con CT DOSE: 896.76 mGycm HISTORY: Pain. Nausea. pain TECHNIQUE: Multiaxial CT images of the abdomen and pelvis were performed without contrast. A dose lo wering technique was utilized adhering to the principles of ALARA. COMPARISON STUDY: 02/19/2019 FINDINGS: Minimal left and to a lesser extent right basilar atelectasis. Configuration of the liver i s unremarkable. Kidneys are negative for nephrocalcinosis or hydronephrosis. Hyperplastic changes and adrenal glands is present. Multiple fluid-filled loops of small bowel as well as colon similar compared to the prior study. A Fo marty catheter is in position within the bladder with considerable bladder wall thickening. The thickening of the rectum and associated perirectal infiltrative change is noted. This is perhaps slightly increased compared to the prior exam. No evidence for free air or significant bladder distention. Subtle body wall anasarca unchanged. IMPRESSION: 1. Generalized nonobstructive ileus with fluid-filled loops of small bowel as well as colon. 2. Interval decompression of the bladder due to placement of a Guy catheter. 3. Persistent bladder wall thickening. 4. Findings consistent with circumferential wall thickening of the rectum and low sigmoid suggesting slightly progressive proctocolitis compared to the prior exam. 5. No evidence for drainable abscess or collection at this time. 6. Slight body wall anasarca. The above report was generated using voice recognition software. It may contain grammatical, syntax or spelling errors. Electronically signed by: Demetris Sam M.D. 03/15/2019 5:27 PM
[2019-03-15 17:30] LABS: Oxygen Saturation VBG < 60.0 %
--- NOTE | 2019-03-15 17:42 | History & Physical Report ---
Date of Service March 15, 2019 Assessment & Plan (1) Sepsis: Severe Sepsis H/O Pseudomonas bacteremia, complicated UTI Possible Sources: R/O C diff, UTI, Proctocolitis --CT ABD:Generalized nonobstructive ileus with fluid-filled loops of small bowel as well as colon. Interval decompression of the bladder due to placement of a Guy catheter. Persistent bladder wall thickening. Findings consistent with circumferential wall thickening of the rectum and low sigmoid suggesting slightly progressive proctocolitis compared to the prior exam. No evidence for drainable abscess or collection at this time. Slight body wall anasarca. --CXR:Negative chest. Blood, urine cultures obtained Lactate levels elevated Empirically started on IV Zosyn Check stool for C. difficile Trend lactate levels Continue IV fluids Echo ordered given history of Pseudomonas bacteremia Repeat KUB in a.m. Hold home stool softeners Start on p.o. vancomycin if C. difficile positive Syncope Likely secondary to hypotension from above Monitor on telemetry Check orthostatics Update echo Acute kidney injury Due to diarrhea, urinary retention Baseline creatinine ~1.2 Creatinine levels 1.72 Continue Guy catheter for now Continue IV fluids Hold lisinopril Avoid nephrotoxic agents as able Monitor renal function Urinary retention Abdominal distention improved after placing Guy catheter in ED Continue Guy catheter Continue Flomax, Proscar Urology consulted History of CVA Continue aspirin Vascular dementia Schizoaffective disorder Continue home medications Hypertension Presented with hypotension Lisinopril held Monitor DVT prophylaxis Heparin SQ CODE STATUS Full code Disposition PT OT prior to discharge Plan to discharge back to [facility] when medically stable History of Present Illness Chief Complaint: Syncope Primary Care Provider: [facility] Patient is a 78-year-old male with history of vascular dementia, schizoaffective disorder, hypertension, CVA, chronic urinary retention and other problems presents from [facility] with an episode of syncope. Patient was recently discharged from [facility] to [facility] after being treated for complicated UTI and Pseudomonas septicemia. Patient is a poor historian secondary to his dementia. Most of the history is obtained from old records, ER physician and staff at [facility]. Patient had physical therapy earlier today at outside and had a syncopal episode. No known seizure-like activity. Patient was unconscious for unknown duration. When awake patient was not confused as per staff. Patient was incontinent with stools today. No blood in the stools noted. Patient also had abdominal distention and urinary retention that was noted by the staff today. Patient had chronic urinary retention and his Guy catheter was removed 1 week ago. Patient completed his antibiotic course for urinary tract infection on March 11, 2019. Patient was noted to be hypotensive while in ED which improved with IV fluids. He was noted to have elevated white blood cell count, lactate levels and seems to be dehydrated with elevation of creatinine. Patient was started empirically on Zosyn while in ED. He denies any history of chest pain, SOB, dizziness, cough, fever, chills, headache, nausea, vomiting, abdominal pain, dysuria, hematuria. Allergies Allergy/AdvReac Type Severity Reaction Status Date / Time olanzapine Allergy Mild "IT DOES Verified 02/19/19 12:05 NOT WORK" risperidone Allergy Unknown UNKNOWN Verified 02/19/19 12:05 Tricyclic Antidepressants Allergy Unknown . Uncoded 02/19/19 12:05 Flu Virus Vaccine AdvReac Unknown CAUSES Uncoded 02/19/19 12:05 PAIN AT INJECTION SITE Home Medications Home Medications Medication Instructions Recorded Confirmed Type Artificial Tears (PF) 1 drp OPB BID 11/22/18 03/15/19 History Calmoseptine 1 applic TOPICAL DAILY 11/22/18 03/15/19 History Bing's wort 300 mg PO DAILY 11/22/18 03/15/19 History aspirin 81 mg PO DAILY 11/22/18 03/15/19 History benztropine 1 mg PO BID 11/22/18 03/15/19 History docusate sodium 100 mg PO BID 11/22/18 03/15/19 History fluphenazine decanoate 25 mg IM MONTHLY 11/22/18 03/15/19 History lorazepam 0.5 mg PO TID PRN 11/22/18 03/15/19 History memantine 10 mg PO BID 11/22/18 03/15/19 History mirtazapine 30 mg PO HS 11/22/18 03/15/19 History multivitamin 1 tab PO DAILY 11/22/18 03/15/19 History perphenazine 8 mg PO TID 11/22/18 03/15/19 History lisinopril 10 mg PO DAILY 02/08/19 03/15/19 History lidocaine HCl 10 ml EXT Q6H PRN #50 ml 02/24/19 03/15/19 Rx Lactobacillus acidoph-L.bulgar 4 tab PO QID 03/15/19 03/15/19 History [Floranex] acetaminophen [Tylenol] 650 mg PO Q6H PRN MDD 3G 03/15/19 03/15/19 History bisacodyl [Dulcolax (bisacodyl)] 10 mg NC DAILY PRN 03/15/19 03/15/19 History tamsulosin 0.4 mg PO DAILY 03/15/19 03/15/19 History Past Med/Surg History Medical History Dementia (Chronic) H/O: CVA (cerebrovascular accident) (Chronic) HTN (hypertension) (Chronic) Schizoaffective disorder (Chronic) Surgical History Hx of cataract surgery (Chronic) S/P tonsillectomy (Chronic) Family History Other Hypertension Social History Preferred Language: Setswana Communication Ability: Effective Theatre Arts Professor Required: No Beliefs That Will Affect Care: None Current Living Situation: Personal Care Facility [facility] Feels Safe at Home: Yes Smoking Status: Former smoker Hx Alcohol Use: No Hx Substance Use: No Review of Systems Review of Systems: All systems reviewed & are unremarkable except as noted in HPI & below Physical Exam Physical Exam: Physical Exam: Vitals signs as noted above General Appearance:Moderately built and nourished, no apparent distress Head: normocephalic, Atraumatic,+ upper lip hemangioma Eyes: normal inspection, EOMI Neck: supple, Trachea midline Respiratory/Chest: Normal breath sounds, CTA, No accessory muscle use Cardiovascular: S1, S2, No murmur, tachycardia Abdomen/GI:Soft, Non tender, no guarding or rigidity, bowel sounds present Extremities/Musculoskelatal:normal inspection, B/L LE edema Neurologic/Psych: Alert, awake, oriented to place and person, grossly no focal neurological deficits, + dementia Skin: normal color, warm Results & Data Vital Signs (Past 12 Hours) Vital Signs Temp Pulse Resp BP Pulse Ox 03/15/19 17:24 105 H 14 106/63 100 03/15/19 17:23 103 H 16 115/67 03/15/19 17:00 113 H 31 H 113/60 99 03/15/19 16:58 100 03/15/19 16:45 115 H 19 159/79 H 100 03/15/19 16:30 20 139/75 03/15/19 16:27 20 110/57 L 03/15/19 16:13 24 89/58 L 90 03/15/19 16:01 99 H 30 H 84/54 L 100 03/15/19 15:49 29 H 83/39 L 98 03/15/19 15:42 20 78/43 L 99 03/15/19 15:38 36.4 C L 105 H 26 H 78/43 L 98 Laboratory Results Short CBC 03/15/19 Range/Units 15:53 WBC 29.93 H (4.8-10.8) K/uL Hgb 11.4 L (14.0-18.0) g/dL Hct 35.0 L (42-52) % Plt Count 327 (130-400) K/uL BMP 03/15/19 15:53 Sodium 139 Potassium 5.1 Chloride 109 H Carbon Dioxide 23 BUN 23 H Creatinine 1.72 H Glucose 128 H Calcium 9.8 Cardiac Enzymes 03/15/19 Range/Units 15:53 Troponin I < 0.015 (0-0.045) ng/ml Liver Function 03/15/19 Range/Units 15:53 Total Bilirubin 0.5 (0.2-1) mg/dl AST 13 L (15-37) U/L ALT 13 (12-78) U/L Alkaline Phosphatase 88 (45-117) U/L Albumin 3.1 L (3.4-5.0) gm/dl Urine 03/15/19 Range/Units 16:30 Urine Color Yellow Urine Appearance Clear (Clear) Urine pH 5.5 (4.5-7.5) Ur Specific [place] 1.016 (1.000-1.030) Urine Protein Negative (Negative) Urine Glucose (UA) Negative (Negative) Diagnostic Findings CT ABD; 1. Generalized nonobstructive ileus with fluid-filled loops of small bowel as well as colon. 2. Interval decompression of the bladder due to placement of a Guy catheter. 3. Persistent bladder wall thickening. 4. Findings consistent with circumferential wall thickening of the rectum and low sigmoid suggesting slightly progressive proctocolitis compared to the prior exam. 5. No evidence for drainable abscess or collection at this time. 6. Slight body wall anasarca. CXR: Negative chest. Medications Administered Home Medications Medication Instructions Recorded Confirmed Artificial Tears (PF) 1 drp OPB BID 11/22/18 03/15/19 Calmoseptine 1 applic TOPICAL DAILY 11/22/18 03/15/19 [place]'s wort 300 mg PO DAILY 11/22/18 03/15/19 aspirin 81 mg PO DAILY 11/22/18 03/15/19 benztropine 1 mg PO BID 11/22/18 03/15/19 docusate sodium 100 mg PO BID 11/22/18 03/15/19 fluphenazine decanoate 25 mg IM MONTHLY 11/22/18 03/15/19 lorazepam 0.5 mg PO TID PRN 11/22/18 03/15/19 memantine 10 mg PO BID 11/22/18 03/15/19 mirtazapine 30 mg PO HS 11/22/18 03/15/19 multivitamin 1 tab PO DAILY 11/22/18 03/15/19 perphenazine 8 mg PO TID 11/22/18 03/15/19 lisinopril 10 mg PO DAILY 02/08/19 03/15/19 Lactobacillus acidoph-L.bulgar 4 tab PO QID 03/15/19 03/15/19 [Floranex] acetaminophen [Tylenol] 650 mg PO Q6H PRN MDD 3G 03/15/19 03/15/19 bisacodyl [Dulcolax (bisacodyl)] 10 mg NC DAILY PRN 03/15/19 03/15/19 tamsulosin 0.4 mg PO DAILY 03/15/19 03/15/19 Previous Rx's Medication Instructions Recorded lidocaine HCl 10 ml EXT Q6H PRN #50 ml 02/24/19 ECG Additional Comments: EKG: Accelerated junctional rhythm, left axis deviation, QTC 464. (1) Sepsis Sepsis acute organ dysfunction status: unspecified Sepsis type: sepsis due to unspecified organism Qualified Code(s): A41.9 - Sepsis, unspecified organism
[2019-03-15] MEDS ORDERED: LORazepam 0.5 MG TAB PO PRN (20:30)
[2019-03-15] MEDS ORDERED: ONDANSETRON INJ 2 MG/ML 2 ML VIAL IV PRN (20:30)
[2019-03-15] MEDS ORDERED: CONSULT PHARMACY STA (20:30)
[2019-03-15] MEDS ORDERED: ACETAMINOPHEN 325 MG TAB PO PRN (20:30)
[2019-03-15] MEDS: MEMANTINE HCL 10 MG TAB PO SCH (21:51)
[2019-03-15] MEDS: HEPARIN SOD 5,000 UNIT/0.5 ML VIAL SQ SCH (21:51)
[2019-03-15] MEDS: BENZTROPINE MESYLATE 1 MG TAB PO SCH (21:51)
[2019-03-15] MEDS: MIRTAZAPINE TAB 15 MG TAB PO SCH (21:51)
[2019-03-15] MEDS: LACTOBACILLUS ACIDOPHILUS (FLORANEX) TAB PO SCH (21:51)
[2019-03-15] MEDS: SODIUM CHLORIDE 0.9% 1000ML 1,000 ML IV SCH (21:52)
--- NOTE | 2019-03-15 22:01 | Emergency Department Note ---
Entered by Salome Menjivar acting as a scribe for History of Present Illness General Chief complaint: Illness Stated complaint: AB PAIN, SYNCOPE Time Seen by Provider: 03/15/19 15:55 Source: patient Mode of arrival: EMS History of Present Illness Onset (ago): hour(s) 6 Location: abdomen Radiation: other (left leg) Pain Consistency: + other (persistent) Maximum Pain Intensity: 5 Quality: + other (abdominal pain) Associated symptoms: + chest pain, + headaches, + shortness of breath and + other (abdominal pain, ggroin pain) Treatments prior to arrival: none The patient is a 78 year old male presenting to the Emergency Department complaining of persistent abdominal pain starting 6 hours ago. The patient rep orts that he has abdominal pain. He states that he has pain in his right groin down to his right leg. He explains that he noticed blood in his stool this morning. He notes that he has a headache, chest pain and is short of breath. 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 The patient reports that he resides at [facility]. Home Medications Home Medications Medication Instructions Recorded Confirmed Type Artificial Tears (PF) 1 drp OPB BID 11/22/18 03/15/19 History Calmoseptine 1 applic TOPICAL DAILY 11/22/18 03/15/19 History Bing's wort 300 mg PO DAILY 11/22/18 03/15/19 History aspirin 81 mg PO DAILY 11/22/18 03/15/19 History benztropine 1 mg PO BID 11/22/18 03/15/19 History docusate sodium 100 mg PO BID 11/22/18 03/15/19 History fluphenazine decanoate 25 mg IM MONTHLY 11/22/18 03/15/19 History lorazepam 0.5 mg PO TID PRN 11/22/18 03/15/19 History memantine 10 mg PO BID 11/22/18 03/15/19 History mirtazapine 30 mg PO HS 11/22/18 03/15/19 History multivitamin 1 tab PO DAILY 11/22/18 03/15/19 History perphenazine 8 mg PO TID 11/22/18 03/15/19 History lisinopril 10 mg PO DAILY 02/08/19 03/15/19 History lidocaine HCl 10 ml EXT Q6H PRN #50 ml 02/24/19 03/15/19 Rx Lactobacillus acidoph-L.bulgar 4 tab PO QID 03/15/19 03/15/19 History [Floranex] acetaminophen [Tylenol] 650 mg PO Q6H PRN MDD 3G 03/15/19 03/15/19 History bisacodyl [Dulcolax (bisacodyl)] 10 mg ID DAILY PRN 03/15/19 03/15/19 History tamsulosin 0.4 mg PO DAILY 03/15/19 03/15/19 History Allergies Allergy/AdvReac Type Severity Reaction Status Date / Time olanzapine Allergy Mild "IT DOES Verified 02/19/19 12:05 NOT WORK" risperidone Allergy Unknown UNKNOWN Verified 02/19/19 12:05 Tricyclic Antidepressants Allergy Unknown . Uncoded 02/19/19 12:05 Flu Virus Vaccine AdvReac Unknown CAUSES Uncoded 02/19/19 12:05 PAIN AT INJECTION SITE Past Med/Surg History Medical History Dementia (Chronic) H/O: CVA (cerebrovascular accident) (Chronic) HTN (hypertension) (Chronic) Schizoaffective disorder (Chronic) Surgical History Hx of cataract surgery (Chronic) S/P tonsillectomy (Chronic) Family History Other Hypertension Social History Preferred Language: Liberian Communication Ability: Effective Wave Guide Assembler Required: No Beliefs That Will Affect Care: None Current Living Situation: Detention Current Living Situation Comment: [facility] Other Information That Helps Us Care for You: No Feels Safe at Home: Yes Safety Concerns: Feels Safe At This Time Smoking Status: Former smoker Do You Dip or Chew Tobacco: No ; Second Hand Exposure: No ; Tobacco Cessation Education Requested by Patient: No Hx Alcohol Use: No Hx Substance Use: No Review of Systems See HPI for pertinent positives & negatives. and A total of 10 systems reviewed and were otherwise negative Physical Exam Vital Signs Vital Signs - 24 hr 03/15/19 15:38 03/15/19 15:42 03/15/19 15:49 Temperature 36.4 C L Temperature Source Oral Pulse Rate 105 H Pulse Rate from SpO2 Sensor 99 H 108 H Respiratory Rate 26 H 20 29 H Respiratory Effort / Characteristics Non-Labored Respiratory Depth Normal Respiratory Pattern Regular Blood Pressure 78/43 L 78/43 L 83/39 L Blood Pressure Mean 54 58 55 Pulse Oximetry 98 99 98 Oxygen Delivery Method Room Air Sepsis Recent Fever Within 48 Hours No Sepsis New/Unexplained Change in Mental Status No Sepsis Action Taken by Nursing No Action Required 03/15/19 16:01 03/15/19 16:13 03/15/19 16:27 Temperature Temperature Source Pulse Rate 99 H Pulse Rate from SpO2 Sensor 99 H 103 H Respiratory Rate 30 H 24 20 Respiratory Effort / Characteristics Respiratory Depth Respiratory Pattern Blood Pressure 84/54 L 89/58 L 110/57 L Blood Pressure Mean 70 68 69 Pulse Oximetry 100 90 Oxygen Delivery Method Sepsis Recent Fever Within 48 Hours Sepsis New/Unexplained Change in Mental Status Sepsis Action Taken by Nursing 03/15/19 16:30 03/15/19 16:45 03/15/19 16:58 Temperature Temperature Source Pulse Rate 115 H Pulse Rate from SpO2 Sensor 115 H Respiratory Rate 20 19 Respiratory Effort / Characteristics Respiratory Depth Respiratory Pattern Blood Pressure 139/75 159/79 H Blood Pressure Mean 102 95 Pulse Oximetry 100 100 Oxygen Delivery Method Room Air Sepsis Recent Fever Within 48 Hours Sepsis New/Unexplained Change in Mental Status Sepsis Action Taken by Nursing 03/15/19 17:00 03/15/19 17:23 03/15/19 17:24 Temperature Temperature Source Pulse Rate 113 H 103 H 105 H Pulse Rate from SpO2 Sensor 113 H 106 H Respiratory Rate 31 H 16 14 Respiratory Effort / Characteristics Respiratory Depth Respiratory Pattern Blood Pressure 113/60 115/67 106/63 Blood Pressure Mean 80 83 76 Pulse Oximetry 99 100 Oxygen Delivery Method Sepsis Recent Fever Within 48 Hours Sepsis New/Unexplained Change in Mental Status Sepsis Action Taken by Nursing 03/15/19 17:30 03/15/19 17:45 03/15/19 18:00 Temperature Temperature Source Pulse Rate 111 H 105 H 113 H Pulse Rate from SpO2 Sensor 112 H 105 H 113 H Respiratory Rate 27 H 18 39 H Respiratory Effort / Characteristics Respiratory Depth Respiratory Pattern Blood Pressure 115/67 118/68 116/65 Blood Pressure Mean 75 83 83 Pulse Oximetry 99 97 100 Oxygen Delivery Method Room Air Room Air Room Air Sepsis Recent Fever Within 48 Hours Sepsis New/Unexplained Change in Mental Status Sepsis Action Taken by Nursing 03/15/19 18:15 03/15/19 18:30 Temperature Temperature Source Pulse Rate 111 H 109 H Pulse Rate from SpO2 Sensor 111 H 111 H Respiratory Rate 29 H 22 Respiratory Effort / Characteristics Respiratory Depth Respiratory Pattern Blood Pressure 113/67 113/72 Blood Pressure Mean 82 81 Pulse Oximetry 97 97 Oxygen Delivery Method Sepsis Recent Fever Within 48 Hours Sepsis New/Unexplained Change in Mental Status Sepsis Action Taken by Nursing GENERAL: Patient is awake, alert, and in no acute distress.Patient is somewhat anxious and uncomfortable appearing. EYES: Conjunctiva were pale. PERRL. EARS, NOSE, MOUTH AND THROAT: The nose is without any evidence of any deformity. Mucous membranes are dry.Tongue is midline NECK: The neck is nontender and supple. RESPIRATORY: Diminished breath sounds noted throughout. No rales, rhonchi or wheezing. CARDIOVASCULAR: Regular rate and rhythm noted. There no murmurs rubs or gallops normal S1 normal S2 GASTROINTESTINAL: Abdomen was moderately distended and diffusely tender. No guarding or rigidity. The abdomen is soft. Bowel sounds are present in all quadrants. RECTAL: Brown stool. Heme positive. MUSCULOSKELETAL/EXTREMITIES: Pedal edema bilaterally. There is no evidence of gross deformity. Full range of motion is noted in the hips and shoulders. SKIN: There is no obvious evidence of any rash. There are no petechiae, pallor or cyanosis noted. NEUROLOGIC: Patient is awake alert and oriented x3. Strength is symmetric. Patellar reflexes are 2+ bilaterally. Course Course 1556: The patient was evaluated in room C1A, and a complete history and physical examination were performed. 1618: I reevaluated the patient at this time. 1732: I discussed the patient's case with Dr. Murguia [facility] hospitalist. He will evaluate the patient for further management. Administered Medications Benztropine Mesylate (Cogentin) 1 mg PO BID SHERIE Stop: 04/14/19 20:59 Last Admin: 03/15/19 21:51 Dose: 1 mg Documented by: [id number] Heparin Sodium (Porcine) (Heparin Sodium (Porcine)) 5,000 units SQ Q12 SHERIE Stop: 04/14/19 20:59 Last Admin: 03/15/19 21:51 Dose: 5,000 units Documented by: [id number] Cosigned by: [id number] Sodium Chloride (Nss 1000ml) 1,000 mls @ 125 mls/hr IV .Q8H SHERIE Stop: 04/14/19 20:29 Last Admin: 03/15/19 21:52 Dose: 125 mls/hr Documented by: [id number] Lactobacillus Acidophilus (Floranex) 4 tab PO QID SHERIE Stop: 04/14/19 20:59 Last Admin: 03/15/19 21:51 Dose: 4 tab Documented by: [id number] Memantine (Namenda) 10 mg PO BID SHERIE Stop: 04/14/19 20:59 Last Admin: 03/15/19 21:51 Dose: 10 mg Documented by: [id number] Mirtazapine (Remeron) 30 mg PO HS SHERIE Stop: 04/14/19 20:59 Last Admin: 03/15/19 21:51 Dose: 30 mg Documented by: [id number] Discontinued Medications Sodium Chloride (Nss 1000ml) 1,000 mls @ 999 mls/hr IV .Q1H1M ONE Stop: 03/15/19 16:57 Last Infusion: 03/15/19 17:50 Dose: 0 mls/hr Documented by: [id number] Admin: 03/15/19 16:50 Dose: 999 mls/hr Documented by: [id number] Lactated Ringer's (Lr) 1,000 mls @ 999 mls/hr IV .Q1H1M ONE Stop: 03/15/19 17:43 Last Infusion: 03/15/19 18:19 Dose: 0 mls/hr Documented by: [id number] Admin: 03/15/19 17:26 Dose: 999 mls/hr Documented by: [id number] Piperacillin Sod/Tazobactam Sod (Zosyn) 4.5 gm in 120 mls @ 240 mls/hr IV NOW ONE Stop: 03/15/19 17:20 Last Infusion: 03/15/19 18:19 Dose: 0 mls/hr Documented by: [id number] Admin: 03/15/19 17:26 Dose: 240 mls/hr Documented by: [id number] Critical Care Time Critical Care Time: Yes Total Critical Care Time: 45 I have personally spent greater than 45 minutes of critical care time in the direct management of this patient. This includes bedside care, interpretation of diagnostic studies, and testing, discussion with consultants, patient, and family members, and other required patient management activities. This 45 minutes is in excess of all separately billable procedures. Medical Decision Making Differential Diagnosis Differential diagnosis: Etiologies such as sepsis, UTI, pneumonia, metabolic, electrolyte abno rmalities,cardiac sources, intracerebral event, toxicologic, neurologic, as well as others were entertained. Medical Records Attestation: I reviewed the patient's medical records. Home Medications Current Medication List: was personally reviewed by me Laboratory Data Attestation: I reviewed the patient's lab results. Result diagrams: 03/15/19 15:53 03/15/19 15:53 Lab Results 03/15/19 03/15/19 03/15/19 Range/Units 15:53 15:53 15:53 WBC 29.93 H (4.8-10.8) K/uL RBC 3.90 L (4.7-6.1) M/uL Hgb 11.4 L (14.0-18.0) g/dL POC Hgb (14.0-18.0) g/dl Hct 35.0 L (42-52) % POC Hct (42-52) % MCV 89.7 (80-100) fL MCH 29.2 (25-34) pg MCHC 32.6 (32-36) g/dL RDW Std Deviation 48.4 H (36.4-46.3) fL RDW Coeff of So 14.8 H (11.5-14.5) % Plt Count 327 (130-400) K/uL MPV 9.8 (7.4-10.4) fL Immature Gran % (Auto) 0.5 % Neut % (Auto) 90.1 % Lymph % (Auto) 3.3 % Thomas % (Auto) 5.2 % Eos % (Auto) 0.8 % Baso % (Auto) 0.1 % Immature Gran # (Auto) 0.15 H (0.00-0.02) K/uL Neut # (Auto) 26.96 H (1.4-6.5) K/uL Lymph # (Auto) 0.99 L (1.2-3.4) K/uL Thomas # (Auto) 1.55 H (0.11-0.59) K/uL Eos # (Auto) 0.25 (0-0.5) K/uL Baso # (Auto) 0.03 (0-0.2) K/uL Echinocytes 1+ ESR 42 H (0-14) mm/hr PT (9.0-12.0) Seconds INR (0.9-1.1) APTT (21.0-31.0) Seconds PTT Ratio VBG pH (7.36-7.41) VBG pCO2 (38-50) mmHg VBG pO2 mmHg VBG HCO3 mmol/L VBG O2 Saturation % VBG Base Excess mEq/L Barometric Pressure mm/Hg POC Sodium (135-144) mEq/L Sodium (136-145) mmol/L POC Potassium (3.3-5.0) mEq/L Potassium (3.5-5.1) mmol/L POC Chloride (101-112) mEq/L Chloride (98-107) mmol/L Carbon Dioxide (21-32) mmol/L POC Total CO2 (24-31) mEq/l Anion Gap (3-11) POC Anion Gap (16-25) mmol/L POC BUN (7-18) mg/dl BUN (7-18) mg/dl Creatinine (0.6-1.4) mg/dl POC Creatinine (0.6-1.3) mg/dl Est Cr Clr Drug Dosing ml/min Est GFR ( Amer) Est GFR (Non-Af Amer) BUN/Creatinine Ratio (10-20) Glucose (70-99) mg/dl POC Glucose (other) (70-99) mg/dl Lactate (0.4-2.0) mmol/L Calcium (8.5-10.1) mg/dl POC Ioniz Calcium Adriane (1.12-1.32) mmol/l Magnesium (1.8-2.4) mg/dl Total Bilirubin (0.2-1) mg/dl AST (15-37) U/L ALT (12-78) U/L Alkaline Phosphatase (45-117) U/L Troponin I (0-0.045) ng/ml C-Reactive Protein (0-0.29) mg/dl Total Protein (6.4-8.2) gm/dl Albumin (3.4-5.0) gm/dl Globulin (2.5-4.0) gm/dl Albumin/Globulin Ratio (0.9-2) Lipase (73-393) U/L Procalcitonin 0.38 (0-0.5) ng/ml Urine Color Urine Appearance (Clear) Urine pH (4.5-7.5) Ur Specific Coral (1.000-1.030) Urine Protein (Negative) Urine Glucose (UA) (Negative) Urine Ketones (Negative) Urine Blood (Negative) Urine Nitrite (Negative) Urine Bilirubin (Negative) Urine Urobilinogen (Negative) Ur Leukocyte Esterase (Negative) Urine WBC (Auto) (0-5) /hpf Urine RBC (Auto) (0-4) /hpf U Hyaline Cast (Auto) (0-5) /lpf U Epithel Cells (Auto) (0-5) /lpf Urine Bacteria (Auto) (Negative) Stl C. diff Tox B Gene Blood Type Antibody Screen 03/15/19 03/15/19 03/15/19 Range/Units 15:53 15:53 16:30 WBC (4.8-10.8) K/uL RBC (4.7-6.1) M/uL Hgb (14.0-18.0) g/dL POC Hgb (14.0-18.0) g/dl Hct (42-52) % POC Hct (42-52) % MCV (80-100) fL MCH (25-34) pg MCHC (32-36) g/dL RDW Std Deviation (36.4-46.3) fL RDW Coeff of So (11.5-14.5) % Plt Count (130-400) K/uL MPV (7.4-10.4) fL Immature Gran % (Auto) % Neut % (Auto) % Lymph % (Auto) % Thomas % (Auto) % Eos % (Auto) % Baso % (Auto) % Immature Gran # (Auto) (0.00-0.02) K/uL Neut # (Auto) (1.4-6.5) K/uL Lymph # (Auto) (1.2-3.4) K/uL Thomas # (Auto) (0.11-0.59) K/uL Eos # (Auto) (0-0.5) K/uL Baso # (Auto) (0-0.2) K/uL Echinocytes ESR (0-14) mm/hr PT 12.0 (9.0-12.0) Seconds INR 1.2 H (0.9-1.1) APTT 25.1 (21.0-31.0) Seconds PTT Ratio 0.9 VBG pH (7.36-7.41) VBG pCO2 (38-50) mmHg VBG pO2 mmHg VBG HCO3 mmol/L VBG O2 Saturation % VBG Base Excess mEq/L Barometric Pressure mm/Hg POC Sodium (135-144) mEq/L Sodium 139 (136-145) mmol/L POC Potassium (3.3-5.0) mEq/L Potassium 5.1 (3.5-5.1) mmol/L POC Chloride (101-112) mEq/L Chloride 109 H (98-107) mmol/L Carbon Dioxide 23 (21-32) mmol/L POC Total CO2 (24-31) mEq/l Anion Gap 7.0 (3-11) POC Anion Gap (16-25) mmol/L POC BUN (7-18) mg/dl BUN 23 H (7-18) mg/dl Creatinine 1.72 H (0.6-1.4) mg/dl POC Creatinine (0.6-1.3) mg/dl Est Cr Clr Drug Dosing 37.9 ml/min Est GFR ( Amer) 43.2 Est GFR (Non-Af Amer) 37.3 BUN/Creatinine Ratio 13.3 (10-20) Glucose 128 H (70-99) mg/dl POC Glucose (other) (70-99) mg/dl Lactate (0.4-2.0) mmol/L Calcium 9.8 (8.5-10.1) mg/dl POC Ioniz Calcium Adriane (1.12-1.32) mmol/l Magnesium 1.8 (1.8-2.4) mg/dl Total Bilirubin 0.5 (0.2-1) mg/dl AST 13 L (15-37) U/L ALT 13 (12-78) U/L Alkaline Phosphatase 88 (45-117) U/L Troponin I < 0.015 (0-0.045) ng/ml C-Reactive Protein 2.77 H (0-0.29) mg/dl Total Protein 7.2 (6.4-8.2) gm/dl Albumin 3.1 L (3.4-5.0) gm/dl Globulin 4.1 H (2.5-4.0) gm/dl Albumin/Globulin Ratio 0.8 L (0.9-2) Lipase 96 (73-393) U/L Procalcitonin (0-0.5) ng/ml Urine Color Yellow Urine Appearance Clear (Clear) Urine pH 5.5 (4.5-7.5) Ur Specific Coral 1.016 (1.000-1.030) Urine Protein Negative (Negative) Urine Glucose (UA) Negative (Negative) Urine Ketones Negative (Negative) Urine Blood Negative (Negative) Urine Nitrite Negative (Negative) Urine Bilirubin Negative (Negative) Urine Urobilinogen Negative (Negative) Ur Leukocyte Esterase 1+ H (Negative) Urine WBC (Auto) 10-30 H (0-5) /hpf Urine RBC (Auto) 0-4 (0-4) /hpf U Hyaline Cast (Auto) 1-5 (0-5) /lpf U Epithel Cells (Auto) 5-10 H (0-5) /lpf Urine Bacteria (Auto) Negative (Negative) Stl C. diff Tox B Gene Blood Type Antibody Screen 03/15/19 03/15/19 03/15/19 Range/Units 16:30 16:48 16:49 WBC (4.8-10.8) K/uL RBC (4.7-6.1) M/uL Hgb (14.0-18.0) g/dL POC Hgb (14.0-18.0) g/dl Hct (42-52) % POC Hct (42-52) % MCV (80-100) fL MCH (25-34) pg MCHC (32-36) g/dL RDW Std Deviation (36.4-46.3) fL RDW Coeff of So (11.5-14.5) % Plt Count (130-400) K/uL MPV (7.4-10.4) fL Immature Gran % (Auto) % Neut % (Auto) % Lymph % (Auto) % Thomas % (Auto) % Eos % (Auto) % Baso % (Auto) % Immature Gran # (Auto) (0.00-0.02) K/uL Neut # (Auto) (1.4-6.5) K/uL Lymph # (Auto) (1.2-3.4) K/uL Thomas # (Auto) (0.11-0.59) K/uL Eos # (Auto) (0-0.5) K/uL Baso # (Auto) (0-0.2) K/uL Echinocytes ESR (0-14) mm/hr PT (9.0-12.0) Seconds INR (0.9-1.1) APTT (21.0-31.0) Seconds PTT Ratio VBG pH (7.36-7.41) VBG pCO2 (38-50) mmHg VBG pO2 mmHg VBG HCO3 mmol/L VBG O2 Saturation % VBG Base Excess mEq/L Barometric Pressure mm/Hg POC Sodium (135-144) mEq/L Sodium (136-145) mmol/L POC Potassium (3.3-5.0) mEq/L Potassium (3.5-5.1) mmol/L POC Chloride (101-112) mEq/L Chloride (98-107) mmol/L Carbon Dioxide (21-32) mmol/L POC Total CO2 (24-31) mEq/l Anion Gap (3-11) POC Anion Gap (16-25) mmol/L POC BUN (7-18) mg/dl BUN (7-18) mg/dl Creatinine (0.6-1.4) mg/dl POC Creatinine (0.6-1.3) mg/dl Est Cr Clr Drug Dosing ml/min Est GFR ( Amer) Est GFR (Non-Af Amer) BUN/Creatinine Ratio (10-20) Glucose (70-99) mg/dl POC Glucose (other) (70-99) mg/dl Lactate 2.4 H* (0.4-2.0) mmol/L Calcium (8.5-10.1) mg/dl POC Ioniz Calcium Adriane (1.12-1.32) mmol/l Magnesium (1.8-2.4) mg/dl Total Bilirubin (0.2-1) mg/dl AST (15-37) U/L ALT (12-78) U/L Alkaline Phosphatase (45-117) U/L Troponin I (0-0.045) ng/ml C-Reactive Protein (0-0.29) mg/dl Total Protein (6.4-8.2) gm/dl Albumin (3.4-5.0) gm/dl Globulin (2.5-4.0) gm/dl Albumin/Globulin Ratio (0.9-2) Lipase (73-393) U/L Procalcitonin (0-0.5) ng/ml Urine Color Urine Appearance (Clear) Urine pH (4.5-7.5) Ur Specific Coral (1.000-1.030) Urine Protein (Negative) Urine Glucose (UA) (Negative) Urine Ketones (Negative) Urine Blood (Negative) Urine Nitrite (Negative) Urine Bilirubin (Negative) Urine Urobilinogen (Negative) Ur Leukocyte Esterase (Negative) Urine WBC (Auto) (0-5) /hpf Urine RBC (Auto) (0-4) /hpf U Hyaline Cast (Auto) (0-5) /lpf U Epithel Cells (Auto) (0-5) /lpf Urine Bacteria (Auto) (Negative) Stl C. diff Tox B Gene TNP Blood Type O Positive Antibody Screen NEGATIVE 03/15/19 03/15/19 Range/Units 16:49 16:51 WBC (4.8-10.8) K/uL RBC (4.7-6.1) M/uL Hgb (14.0-18.0) g/dL POC Hgb 10.5 L (14.0-18.0) g/dl Hct (42-52) % POC Hct 31 L (42-52) % MCV (80-100) fL MCH (25-34) pg MCHC (32-36) g/dL RDW Std Deviation (36.4-46.3) fL RDW Coeff of So (11.5-14.5) % Plt Count (130-400) K/uL MPV (7.4-10.4) fL Immature Gran % (Auto) % Neut % (Auto) % Lymph % (Auto) % Thomas % (Auto) % Eos % (Auto) % Baso % (Auto) % Immature Gran # (Auto) (0.00-0.02) K/uL Neut # (Auto) (1.4-6.5) K/uL Lymph # (Auto) (1.2-3.4) K/uL Thomas # (Auto) (0.11-0.59) K/uL Eos # (Auto) (0-0.5) K/uL Baso # (Auto) (0-0.2) K/uL Echinocytes ESR (0-14) mm/hr PT (9.0-12.0) Seconds INR (0.9-1.1) APTT (21.0-31.0) Seconds PTT Ratio VBG pH 7.35 L (7.36-7.41) VBG pCO2 42 (38-50) mmHg VBG pO2 24 mmHg VBG HCO3 23 mmol/L VBG O2 Saturation < 60.0 % VBG Base Excess -2.5 mEq/L Barometric Pressure 739.8 mm/Hg POC Sodium 139 (135-144) mEq/L Sodium (136-145) mmol/L POC Potassium 4.7 (3.3-5.0) mEq/L Potassium (3.5-5.1) mmol/L POC Chloride 108 (101-112) mEq/L Chloride (98-107) mmol/L Carbon Dioxide (21-32) mmol/L POC Total CO2 21 L (24-31) mEq/l Anion Gap (3-11) POC Anion Gap 15.0 L (16-25) mmol/L POC BUN 20 H (7-18) mg/dl BUN (7-18) mg/dl Creatinine (0.6-1.4) mg/dl POC Creatinine 1.6 H (0.6-1.3) mg/dl Est Cr Clr Drug Dosing ml/min Est GFR ( Amer) Est GFR (Non-Af Amer) BUN/Creatinine Ratio (10-20) Glucose (70-99) mg/dl POC Glucose (other) 115 H (70-99) mg/dl Lactate (0.4-2.0) mmol/L Calcium (8.5-10.1) mg/dl POC Ioniz Calcium Adriane 1.10 L (1.12-1.32) mmol/l Magnesium (1.8-2.4) mg/dl Total Bilirubin (0.2-1) mg/dl AST (15-37) U/L ALT (12-78) U/L Alkaline Phosphatase (45-117) U/L Troponin I (0-0.045) ng/ml C-Reactive Protein (0-0.29) mg/dl Total Protein (6.4-8.2) gm/dl Albumin (3.4-5.0) gm/dl Globulin (2.5-4.0) gm/dl Albumin/Globulin Ratio (0.9-2) Lipase (73-393) U/L Procalcitonin (0-0.5) ng/ml Urine Color Urine Appearance (Clear) Urine pH (4.5-7.5) Ur Specific Coral (1.000-1.030) Urine Protein (Negative) Urine Glucose (UA) (Negative) Urine Ketones (Negative) Urine Blood (Negative) Urine Nitrite (Negative) Urine Bilirubin (Negative) Urine Urobilinogen (Negative) Ur Leukocyte Esterase (Negative) Urine WBC (Auto) (0-5) /hpf Urine RBC (Auto) (0-4) /hpf U Hyaline Cast (Auto) (0-5) /lpf U Epithel Cells (Auto) (0-5) /lpf Urine Bacteria (Auto) (Negative) Stl C. diff Tox B Gene Blood Type Antibody Screen Imaging Data Radiologist's Impression: Radiology results as stated below per my review and the radiologist's interpretation: CT abd pelvis wo con CT DOSE: 896.76 mGycm HISTORY: Pain. Nausea. pain TECHNIQUE: Multiaxial CT images of the abdomen and pelvis were performed without contrast. A dose lowering technique was utilized adhering to the principles of ALARA. COMPARISON STUDY: 02/19/2019 FINDINGS: Minimal left and to a lesser extent right basilar atelectasis. Configuration of the liver is unremarkable. Kidneys are negative for nephrocalcinosis or hydronephrosis. Hyperplastic changes and adrenal glands is present. Multiple fluid-filled loops of small bowel as well as colon similar compared to the prior study. A Guy catheter is in position within the bladder with con siderable bladder wall thickening. The thickening of the rectum and associated perirectal infiltrative change is noted. This is perhaps slightly increased compared to the prior exam. No evidence for free air or significant bladder distention. Subtle body wall anasarca unchanged. IMPRESSION: 1. Generalized nonobstructive ileus with fluid-filled loops of small bowel as well as colon. 2. Interval decompression of the bladder due to placement of a Guy catheter. 3. Persistent bladder wall thickening. 4. Findings consistent with circumferential wall thickening of the rectum and low sigmoid suggesting slightly progressive proctocolitis compared to the prior exam. 5. No evidence for drainable abscess or collection at this time. 6. Slight body wall anasarca. The above report was generated using voice recognition software. It may contain grammatical, syntax or spelling errors. Electronically signed by: Demetris Sam M.D. 03/15/2019 5:27 PM XR chest 1V portable CLINICAL HISTORY: Sepsis dyspnea COMPARISON STUDY: No previous studies for comparison. FINDINGS: The bones soft tissues and hemidiaphragms are normal. The cardiomediastinal silhouette is normal. The lungs are clear. The pulmonary vasculature is normal. IMPRESSION: Negative chest. The above report was generated using voice recognition software. It may contain grammatical, syntax or spelling errors. Electronically signed by: Demetris Sam M.D. 03/15/2019 5:11 PM ECG Data Attestation: I personally reviewed and interpreted this ECG as follows: Indication: + abdominal pain Rate (beats per minute): 119 Rhythm: + sinus tachycardia ECG Findings: no PACs and no PVCs Comparison ECG Date: from (02/19/19) Change: no significant change (Increased rate otherwise no change.) Blood Pressure Blood Pressure Findings: Elevated blood pressure Blood Pressure Disposition: further management by hospitalist MDM Narrative The patient is a 78-year-old male who presented to the emergency department for an evaluation of abdominal pain. The patient was hypotensive and found to have a very distended abdomen. Guy catheter was placed with approximately 1400 mL's of urine removed from the bladder. The patient's abdominal pain was significantly improved. He was found to have an elevated white blood cell count. I discussed the patient's laboratory and radiographic studies with him. Because of his symptoms I also discussed his case with the on-call [facility] hospitalist group. They have agreed to evaluate the patient in the emergency department for further management disposition. The patient received IV fluids and IV antibiotics. He was significantly improved on further evaluation. Impression & Plan Sepsis, Acute UTI, Diarrhea, Acute urinary retention Discharge Plan Visit Data *Final* Discharge Date/Time: 03/15/19 19:58 Chief Complaint: Illness Stated Complaint: AB PAIN, SYNCOPE ED Provider: Kirk Marinelli Discharge Problem: Sepsis, Acute UTI, Diarrhea, Acute urinary retention Patient Disposition: Admitted As Inpatient Discharge Instructions Interventions: ED Discharge Assessment Last Done: 03/15/19 19:58 Discharge Problem: Sepsis Qualifiers: Sepsis type: sepsis due to unspecified organism Sepsis acute organ dysfunction status: unspecified Qualified Code(s): A41.9 - Sepsis, unspecified organism Diarrhea Qualifiers: Diarrhea type: unspecified type Qualified Code(s): R19.7 - Diarrhea, unspecified The scribe's documentation has been prepared under my direction and personally reviewed by me in its entirety. I confirm that the note above accurately reflects all work, treatment, procedures, and medical decision making performed by me.
[2019-03-15] MEDS: PIPERACILLIN/TAZOBACTAM 3.375 GM in DEXTROSE 5% 100 ML IV SCH (22:04)
[2019-03-16] MEDS: SODIUM CHLORIDE 0.9% 1000ML 1,000 ML IV SCH (06:03)
[2019-03-16] MEDS: PIPERACILLIN/TAZOBACTAM 3.375 GM in DEXTROSE 5% 100 ML IV SCH ×3 (06:04→21:24)
--- NOTE | 2019-03-16 08:01 | Urology Consultation ---
Date of Consultation March 16, 2019 History of Present Illness Reason for Consultation: UR Requesting Physician: Dr. Jones Attending Physician: Rolan Jones MD History of Present Illness 78yo M resident at [facility], with hx of vascular dementia, schizoaffective disorder, UTI, urinary retention admitted via [facility] ED with complaints of severe abdominal pain and blood in stool Pt found to have WBC 30, in acute urinary retention with 1,500mL drained with stafford insertion in ER. CT imaging reviewed -concern for proc Allergies Allergy/AdvReac Type Severity Reaction Status Date / Time olanzapine Allergy Mild "IT DOES Verified 02/19/19 12:05 NOT WORK" risperidone Allergy Unknown UNKNOWN Verified 02/19/19 12:05 Tricyclic Antidepressants Allergy Unknown . Uncoded 02/19/19 12:05 Flu Virus Vaccine AdvReac Unknown CAUSES Uncoded 02/19/19 12:05 PAIN AT INJECTION SITE Home Medications Home Medications Medication Instructions Recorded Confirmed Type Artificial Tears (PF) 1 drp OPB BID 11/22/18 03/15/19 History Calmoseptine 1 applic TOPICAL DAILY 11/22/18 03/15/19 History Bing's wort 300 mg PO DAILY 11/22/18 03/15/19 History aspirin 81 mg PO DAILY 11/22/18 03/15/19 History benztropine 1 mg PO BID 11/22/18 03/15/19 History docusate sodium 100 mg PO BID 11/22/18 03/15/19 History fluphenazine decanoate 25 mg IM MONTHLY 11/22/18 03/15/19 History lorazepam 0.5 mg PO TID PRN 11/22/18 03/15/19 History memantine 10 mg PO BID 11/22/18 03/15/19 History mirtazapine 30 mg PO HS 11/22/18 03/15/19 History multivitamin 1 tab PO DAILY 11/22/18 03/15/19 History perphenazine 8 mg PO TID 11/22/18 03/15/19 History lisinopril 10 mg PO DAILY 02/08/19 03/15/19 History lidocaine HCl 10 ml EXT Q6H PRN #50 ml 02/24/19 03/15/19 Rx Lactobacillus acidoph-L.bulgar 4 tab PO QID 03/15/19 03/15/19 History [Floranex] acetaminophen [Tylenol] 650 mg PO Q6H PRN MDD 3G 03/15/19 03/15/19 History bisacodyl [Dulcolax (bisacodyl)] 10 mg OR DAILY PRN 03/15/19 03/15/19 History tamsulosin 0.4 mg PO DAILY 03/15/19 03/15/19 History Patient History Medical History Dementia (Chronic) H/O: CVA (cerebrovascular accident) (Chronic) HTN (hypertension) (Chronic) Schizoaffective disorder (Chronic) Surgical History Hx of cataract surgery (Chronic) S/P tonsillectomy (Chronic) Family History Other Hypertension Social History Preferred Language: Honduran Communication Ability: Effective Print Production Associate Required: No Beliefs That Will Affect Care: None Current Living Situation: [facility] Current Living Situation Comment: [facility] Other Information That Helps Us Care for You: No Feels Safe at Home: Yes Safety Concerns: Feels Safe At This Time Smoking Status: Former smoker Do You Dip or Chew Tobacco: No ; Second Hand Exposure: No ; Tobacco Cessation Education Requested by Patient: No Hx Alcohol Use: No Hx Substance Use: No Results & Data Vital Signs (Past 12 Hours) Vital Signs Temp Pulse Pulse Resp BP BP Pulse Ox 03/16/19 03:58 36.7 C 91 H 18 123/67 96 03/15/19 23:04 36.8 C 112 H 20 109/61 97 03/15/19 23:00 88 03/15/19 20:30 36.6 C 103 H 59 L 18 137/70 95 03/15/19 20:20 36.6 C 59 L 28 H 137/70 95 PG Care Time/CCT Total # of Minutes Spent Total Time Spent with Patient: Total time spent is greater than 50% in coordination of care (as documented) at patient's floor/unit and/or counseling patient:
[2019-03-16 08:16] LABS: Basophils # (auto) 0.03 K/uL (0-0.2); Basophils % (auto) 0.2 %; Eosinophils # (auto) 0.08 K/uL (0-0.5); Eosinophils % (auto) 0.5 %; Hematocrit (blood only) 29.5 % (42-52); Hemoglobin 9.7 g/dL (14.0-18.0); Immature Granulocytes # (auto) 0.09 K/uL (0.00-0.02); Immature Granulocytes % (auto) 0.5 %; Lymphocytes # (auto) 1.08 K/uL (1.2-3.4); Lymphocytes % (auto) 6.1 %; Mean Corpuscular Hemoglobin 29.6 pg (25-34); Mean Corpuscular Hgb Conc 32.9 g/dL (32-36); Mean Corpuscular Volume 89.9 fL (80-100); Mean Platelet Volume 9.5 fL (7.4-10.4); Monocytes # (auto) 1.58 K/uL (0.11-0.59); Neutrophils # (auto) 14.72 K/uL (1.4-6.5); Neutrophils % (auto) 83.7 %; Platelet Count 233 K/uL (130-400); RDW Coefficient of Variation 14.7 % (11.5-14.5); RDW Standard Deviation 48.9 fL (36.4-46.3); Red Blood Count 3.28 M/uL (4.7-6.1); White Blood Count 17.58 K/uL (4.8-10.8)
[2019-03-16 08:42] LABS: Calcium 8.5 mg/dl (8.5-10.1); Creatinine Clr Calc Pharmacy 37.7 ml/min; Est GFR (African American) 47.5; Magnesium 1.7 mg/dl (1.8-2.4); Potassium 3.9 mmol/L (3.5-5.1)
[2019-03-16] MEDS: ARTIFICIAL TEARS OP SCH ×2 (09:04→21:25)
[2019-03-16] MEDS: TAMSULOSIN HCL 0.4 MG CAP PO SCH (09:04)
[2019-03-16] MEDS: FINASTERIDE 5 MG TAB PO SCH (09:04)
[2019-03-16] MEDS: MEMANTINE HCL 10 MG TAB PO SCH ×2 (09:04→21:26)
[2019-03-16] MEDS: LACTOBACILLUS ACIDOPHILUS (FLORANEX) TAB PO SCH ×4 (09:04→21:26)
[2019-03-16] MEDS: BENZTROPINE MESYLATE 1 MG TAB PO SCH ×2 (09:04→21:25)
[2019-03-16] MEDS: ASPIRIN 81 MG ECTAB PO SCH (09:04)
[2019-03-16] MEDS: HEPARIN SOD 5,000 UNIT/0.5 ML VIAL SQ SCH ×2 (09:05→21:20)
[2019-03-16] MEDS: MENTHOL-ZINC OXIDE 360 APPLN/120 GM TUBE EXT SCH (09:05)
[2019-03-16] MEDS: PERPHENAZINE 2 MG TABLET PO SCH ×3 (09:05→21:26)
--- NOTE | 2019-03-16 10:08 | Hospitalist Progress Note ---
Date of Service March 16, 2019 Assessment & Plan (1) Sepsis: Severe Sepsis suspected urinary tract infection Proctocolitis Diarrhea -admission WBC with Leukocytosis of 29,000 -as per ED notes, patient presented on 03/16/19 with persistent abdominal pain -admission CT Abdomen:Generalized nonobstructive ileus with fluid-filled loops of small bowel as well as colon. Interval decompression of the bladder due to placement of a Stafford catheter. Persistent bladder wall thickening. Findings c onsistent with circumferential wall thickening of the rectum and low sigmoid suggesting slightly progressive proctocolitis compared to the prior exam. No evidence for drainable abscess or collection at this time. Slight body wall anasarca. -patient noted to have elevated lactic acid levels of 2.4, lactic acid levels resolved after IV fluids and antibiotics -continue empiric Zosyn which was started on admission for protocolitis or possible urinary tract infection -C.difficile test is negative, stool culture pending -follow blood cultures -follow echocardiogram Urinary retention (chronic) -Abdominal distention improved after placing Stafford catheter in ED -Continue Stafford catheter -Continue Flomax, Proscar -Urology consul Acute kidney injury -Baseline creatinine ~1.2 -admission Creatinine levels 1.72 -Continue Stafford catheter for now -Continue IV fluids -Hold lisinopril for now Hypertension -Presented with hypotension -Lisinopril held Syncope -Monitor on telemetry History of stroke in the past -Continue aspirin Vascular dementia Schizoaffective disorder -Continue home medications -PT/OT Hypomagnesemia -serum magnesium 1.7, IV and oral magnesium supplements ordered DVT prophylaxis Heparin SQ CODE STATUS Full code Subjective Patient seen and examined at bedside. He made diarrhea on his bed. He reports his main symptoms were diarrhea when at home. patient denies chest pain or shortness of breath. no headache. no dizziness. Review of Systems Review of Systems: All systems reviewed & are unremarkable except as noted in HPI & below Physical Exam Constitutional: comfortable Eyes: PERRL, conjunctivae normal, anicteric sclerae EOM intact bilaterally ENMT: upper lip mass that is chronic Neck: normal visual inspection Respiratory: normal respiratory effort, lungs clear to auscultation Cardiovascular: Rate/Rhythm: regular rate Gastrointestinal (Abdomen): normal bowel sounds, soft, nontender, no hepatosplenomegaly Musculoskeletal: Head/Neck/Chest: normocephalic and head atraumatic Neurologic: PERRL, EOMI, accommodation nl, no face palsy, no dysarthria Psychiatric: Orientation: alert and cooperative Genitourinary: + bladder abnormality (stafford) Results & Data Vital Signs (Past 12 Hours) Vital Signs Temp Pulse Pulse Resp BP Pulse Ox 03/16/19 08:17 36.7 C 74 18 124/68 100 03/16/19 03:58 36.7 C 91 H 18 123/67 96 03/15/19 23:04 36.8 C 112 H 20 109/61 97 03/15/19 23:00 88 (1) Sepsis Sepsis acute organ dysfunction status: unspecified Sepsis type: sepsis due to unspecified organism Qualified Code(s): A41.9 - Sepsis, unspecified organism
[2019-03-16] MEDS ORDERED: ACETAMINOPHEN 325 MG TAB PO PRN (10:26)
[2019-03-16] MEDS ORDERED: SODIUM CHLORIDE 0.9% 1000ML 1,000 ML IV SCH (10:30)
--- NOTE | 2019-03-16 10:46 | Urology Consultation ---
Date of Consultation March 16, 2019 Assessment & Plan (1) Acute urinary retention: A/P 78 yo male with recurrent urinary retention. I suspect there is a fair chance based on his clinical presentation and imaging that his diarrhea / GI issues are the source of his leukocytosis. Continue e valuation per primary service, UC&S pending. Seen the patient's issues with recurrent urinary retention we will tentatively schedule for surgical decompression with TURP/greenlight TURP. He wishes to proceed with surgical intervention if possible. Will hold an OR date for the patient on Apr 06, 2019. We will move up the patient's cystoscopy visit tentatively for Apr 03 at 12:45 noon in our [place] [facility] to evaluate anatomy and clarify appropriate surgical technique. Will contact the patient to confirm these visits. Findings are reviewed with the patient who expresses a desire to avoid future recurrences of urinary retention. Continue maximal medical therapy for the time being for his BPH. Antibiotic therapy depending on results of GI workup and cultures. Thank you for allowing us to participate in this patient's acute. Please contact our service with any questions or concerns. (2) Acute UTI: (3) Complicated UTI (urinary tract infection): (4) Urinary retention due to benign prostatic hyperplasia: History of Present Illness Reason for Consultation: Recurrent urinary retention, questionable UTI. Attending Physician: Rolan Jones MD History of Present Illness Patient is a pleasant 78-year-old male, resident of [facility] [place], known to our service, seen about a month ago at the time of UTI and urinary retention. He recalls our prior interview and provides appropriate history today. He has been on maximal medical therapy and underwent an outpatient trial of void about a week ago in our office. Unfortunately, this is failed and his Guy catheter has been replaced this admission with drainage of 1.5 L of urine. He has been admitted due to diarrhea and blood in the stool, questionably due to antibiotics in the past for possible UTI. He is known to our service having been seen at the time of his prior admission as an outpatient. He is noted to be afebrile so far this admission with a leukocytosis. His last positive urine culture in February demonstrated pansensitive Pseudomonas. His history of vascular dementia, schizoaffective disorder, UTI, urinary retention is noted. CT scan on admission demonstrates evidence of ileus, lower GI inflammation and a decompressed bladder without hydronephrosis or worrisome urinary upper tract lesions. Urology is consulted to assist with his complex urologic care. Allergies Allergy/AdvReac Type Severity Reaction Status Date / Time olanzapine Allergy Mild "IT DOES Verified 02/19/19 12:05 NOT WORK" risperidone Allergy Unknown UNKNOWN Verified 02/19/19 12:05 Tricyclic Antidepressants Allergy Unknown . Uncoded 02/19/19 12:05 Flu Virus Vaccine AdvReac Unknown CAUSES Uncoded 02/19/19 12:05 PAIN AT INJECTION SITE Home Medications Home Medications Medication Instructions Recorded Confirmed Type Artificial Tears (PF) 1 drp OPB BID 11/22/18 03/15/19 History Calmoseptine 1 applic TOPICAL DAILY 11/22/18 03/15/19 History Lockney's wort 300 mg PO DAILY 11/22/18 03/15/19 History aspirin 81 mg PO DAILY 11/22/18 03/15/19 History benztropine 1 mg PO BID 11/22/18 03/15/19 History docusate sodium 100 mg PO BID 11/22/18 03/15/19 History fluphenazine decanoate 25 mg IM MONTHLY 11/22/18 03/15/19 History lorazepam 0.5 mg PO TID PRN 11/22/18 03/15/19 History memantine 10 mg PO BID 11/22/18 03/15/19 History mirtazapine 30 mg PO HS 11/22/18 03/15/19 History multivitamin 1 tab PO DAILY 11/22/18 03/15/19 History perphenazine 8 mg PO TID 11/22/18 03/15/19 History lisinopril 10 mg PO DAILY 02/08/19 03/15/19 History lidocaine HCl 10 ml EXT Q6H PRN #50 ml 02/24/19 03/15/19 Rx Lactobacillus acidoph-L.bulgar 4 tab PO QID 03/15/19 03/15/19 History [Floranex] acetaminophen [Tylenol] 650 mg PO Q6H PRN MDD 3G 03/15/19 03/15/19 History bisacodyl [Dulcolax (bisacodyl)] 10 mg AK DAILY PRN 03/15/19 03/15/19 History tamsulosin 0.4 mg PO DAILY 03/15/19 03/15/19 History Patient History Medical History (Updated 03/16/19 @ 12:54 by Lavelle Buchanan MD) Acute urinary retention (Acute) Acute UTI (Acute) Complicated UTI (urinary tract infection) Dementia (Chronic) H/O: CVA (cerebrovascular accident) (Chronic) HTN (hypertension) (Chronic) Schizoaffective disorder (Chronic) Urinary retention due to benign prostatic hyperplasia (Chronic) Surgical History Hx of cataract surgery (Chronic) S/P tonsillectomy (Chronic) Family History Other Hypertension Social History Preferred Language: Iranian Communication Ability: Effective Professional Tutor Required: No Beliefs That Will Affect Care: None Current Living Situation: [facility] Current Living Situation Comment: [facility] Feels Safe at Home: Yes Smoking Status: Former smoker Second Hand Exposure: No ; Hx Alcohol Use: No Hx Substance Use: No Review of Systems Constitutional: + fatigue Eyes: no diplopia Ear, Nose, Mouth, Throat: no ear trauma Respiratory: no hemoptysis Cardiovascular: no chest pain Gastrointestinal: + abdominal pain and + bloating Genitourinary: + difficulty urinating Integumentary: no acne and no boil Neurologic: no paralysis Psychiatric: no hopelessness Endocrine: + fatigue; no deepening of the voice Hematologic / Lymphatic: no lymphadenopathy Allergy / Immunological: no tongue swelling Physical Exam Constitutional: no acute distress Eyes: eyes not dysmorphic ENMT: Ears: no external ear abnormality + stable R upper lip lesion Neck: trachea midline; no anterior neck swelling Respiratory: no respiratory distress and does not use accessory muscles Cardiovascular: Vessels: radial pulses present Gastrointestinal (Abdomen): Inspection/Auscultation: abdomen not distended Percussion/Palpation: abdomen soft; abdomen nontender Musculoskeletal: Head/Neck/Chest: normocephalic and neck supple Skin: normal turgor Neurologic: awake; not obtunded Psychiatric: Orientation: oriented x 3 Lymphatic: no lymphadenopathy Results & Data Vital Signs (Past 12 Hours) Vital Signs Temp Pulse Pulse Resp BP Pulse Ox 03/16/19 08:17 36.7 C 74 18 124/68 100 03/16/19 03:58 36.7 C 91 H 18 123/67 96 03/15/19 23:04 36.8 C 112 H 20 109/61 97 03/15/19 23:00 88 Laboratory Results Laboratory Results - last 48 hr 03/15/19 03/15/19 03/15/19 15:53 15:53 15:53 WBC 29.93 H RBC 3.90 L Hgb 11.4 L POC Hgb Hct 35.0 L POC Hct MCV 89.7 MCH 29.2 MCHC 32.6 RDW Std Deviation 48.4 H RDW Coeff of So 14.8 H Plt Count 327 MPV 9.8 Immature Gran % (Auto) 0.5 Neut % (Auto) 90.1 Lymph % (Auto) 3.3 [facility] % (Auto) 5.2 Eos % (Auto) 0.8 Baso % (Auto) 0.1 Immature Gran # (Auto) 0.15 H Neut # (Auto) 26.96 H Lymph # (Auto) 0.[address] # (Auto) 1.55 H Eos # (Auto) 0.25 Baso # (Auto) 0.03 Echinocytes 1+ ESR 42 H PT INR APTT PTT Ratio VBG pH VBG pCO2 VBG pO2 VBG HCO3 VBG O2 Saturation VBG Base Excess Barometric Pressure POC Sodium Sodium POC Potassium Potassium POC Chloride Chloride Carbon Dioxide POC Total CO2 Anion Gap POC Anion Gap POC BUN BUN Creatinine POC Creatinine Est Cr Clr Drug Dosing Est GFR ( Amer) Est GFR (Non-Af Amer) BUN/Creatinine Ratio Glucose POC Glucose (other) Lactate Calcium POC Ioniz Calcium Adriane Magnesium Total Bilirubin AST ALT Alkaline Phosphatase Troponin I C-Reactive Protein Total Protein Albumin Globulin Albumin/Globulin Ratio Lipase Procalcitonin 0.38 Urine Color Urine Appearance Urine pH Ur Specific Hoffman Urine Protein Urine Glucose (UA) Urine Ketones Urine Blood Urine Nitrite Urine Bilirubin Urine Urobilinogen Ur Leukocyte Esterase Urine WBC (Auto) Urine RBC (Auto) U Hyaline Cast (Auto) U Epithel Cells (Auto) Urine Bacteria (Auto) Nasal Screen MRSA (PCR) Stl C. diff Tox B Gene Blood Type Antibody Screen 03/15/19 03/15/19 03/15/19 15:53 15:53 16:30 WBC RBC Hgb POC Hgb Hct POC Hct MCV MCH MCHC RDW Std Deviation RDW Coeff of So Plt Count MPV Immature Gran % (Auto) Neut % (Auto) Lymph % (Auto) [facility] % (Auto) Eos % (Auto) Baso % (Auto) Immature Gran # (Auto) Neut # (Auto) Lymph # (Auto) [facility] # (Auto) Eos # (Auto) Baso # (Auto) Echinocytes ESR PT 12.0 INR 1.2 H APTT 25.1 PTT Ratio 0.9 VBG pH VBG pCO2 VBG pO2 VBG HCO3 VBG O2 Saturation VBG Base Excess Barometric Pressure POC Sodium Sodium 139 POC Potassium Potassium 5.1 POC Chloride Chloride 109 H Carbon Dioxide 23 POC Total CO2 Anion Gap 7.0 POC Anion Gap POC BUN BUN 23 H Creatinine 1.72 H POC Creatinine Est Cr Clr Drug Dosing 37.9 Est GFR ( Amer) 43.2 Est GFR (Non-Af Amer) 37.3 BUN/Creatinine Ratio 13.3 Glucose 128 H POC Glucose (other) Lactate Calcium 9.8 POC Ioniz Calcium Adriane Magnesium 1.8 Total Bilirubin 0.5 AST 13 L ALT 13 Alkaline Phosphatase 88 Troponin I < 0.015 C-Reactive Protein 2.77 H Total Protein 7.2 Albumin 3.1 L Globulin 4.1 H Albumin/Globulin Ratio 0.8 L Lipase 96 Procalcitonin Urine Color Yellow Urine Appearance Clear Urine pH 5.5 Ur Specific Hoffman 1.016 Urine Protein Negative Urine Glucose (UA) Negative Urine Ketones Negative Urine Blood Negative Urine Nitrite Negative Urine Bilirubin Negative Urine Urobilinogen Negative Ur Leukocyte Esterase 1+ H Urine WBC (Auto) 10-30 H Urine RBC (Auto) 0-4 U Hyaline Cast (Auto) 1-5 U Epithel Cells (Auto) 5-10 H Urine Bacteria (Auto) Negative Nasal Screen MRSA (PCR) Stl C. diff Tox B Gene Blood Type Antibody Screen 03/15/19 03/15/19 03/15/19 16:30 16:48 16:49 WBC RBC Hgb POC Hgb Hct POC Hct MCV MCH MCHC RDW Std Deviation RDW Coeff of So Plt Count MPV Immature Gran % (Auto) Neut % (Auto) Lymph % (Auto) [facility] % (Auto) Eos % (Auto) Baso % (Auto) Immature Gran # (Auto) Neut # (Auto) Lymph # (Auto) [facility] # (Auto) Eos # (Auto) Baso # (Auto) Echinocytes ESR PT INR APTT PTT Ratio VBG pH VBG pCO2 VBG pO2 VBG HCO3 VBG O2 Saturation VBG Base Excess Barometric Pressure POC Sodium Sodium POC Potassium Potassium POC Chloride Chloride Carbon Dioxide POC Total CO2 Anion Gap POC Anion Gap POC BUN BUN Creatinine POC Creatinine Est Cr Clr Drug Dosing Est GFR ( Amer) Est GFR (Non-Af Amer) BUN/Creatinine Ratio Glucose POC Glucose (other) Lactate 2.4 H* Calcium POC Ioniz Calcium Adriane Magnesium Total Bilirubin AST ALT Alkaline Phosphatase Troponin I C-Reactive Protein Total Protein Albumin Globulin Albumin/Globulin Ratio Lipase Procalcitonin Urine Color Urine Appearance Urine pH Ur Specific Hoffman Urine Protein Urine Glucose (UA) Urine Ketones Urine Blood Urine Nitrite Urine Bilirubin Urine Urobilinogen Ur Leukocyte Esterase Urine WBC (Auto) Urine RBC (Auto) U Hyaline Cast (Auto) U Epithel Cells (Auto) Urine Bacteria (Auto) Nasal Screen MRSA (PCR) Stl C. diff Tox B Gene TNP Blood Type O Positive Antibody Screen NEGATIVE 03/15/19 03/15/19 03/15/19 16:49 16:51 18:45 WBC RBC Hgb POC Hgb 10.5 L Hct POC Hct 31 L MCV MCH MCHC RDW Std Deviation RDW Coeff of So Plt Count MPV Immature Gran % (Auto) Neut % (Auto) Lymph % (Auto) [facility] % (Auto) Eos % (Auto) Baso % (Auto) Immature Gran # (Auto) Neut # (Auto) Lymph # (Auto) [facility] # (Auto) Eos # (Auto) Baso # (Auto) Echinocytes ESR PT INR APTT PTT Ratio VBG pH 7.35 L VBG pCO2 42 VBG pO2 24 VBG HCO3 23 VBG O2 Saturation < 60.0 VBG Base Excess -2.5 Barometric Pressure 739.8 POC Sodium 139 Sodium POC Potassium 4.7 Potassium POC Chloride 108 Chloride Carbon Dioxide POC Total CO2 21 L Anion Gap POC Anion Gap 15.0 L POC BUN 20 H BUN Creatinine POC Creatinine 1.6 H Est Cr Clr Drug Dosing Est GFR ( Amer) Est GFR (Non-Af Amer) BUN/Creatinine Ratio Glucose POC Glucose (other) 115 H Lactate 2.2 H* Calcium POC Ioniz Calcium Adriane 1.10 L Magnesium Total Bilirubin AST ALT Alkaline Phosphatase Troponin I C-Reactive Protein Total Protein Albumin Globulin Albumin/Globulin Ratio Lipase Procalcitonin Urine Color Urine Appearance Urine pH Ur Specific Hoffman Urine Protein Urine Glucose (UA) Urine Ketones Urine Blood Urine Nitrite Urine Bilirubin Urine Urobilinogen Ur Leukocyte Esterase Urine WBC (Auto) Urine RBC (Auto) U Hyaline Cast (Auto) U Epithel Cells (Auto) Urine Bacteria (Auto) Nasal Screen MRSA (PCR) Stl C. diff Tox B Gene Blood Type Antibody Screen 03/15/19 03/15/19 03/15/19 21:06 21:06 21:15 WBC RBC Hgb POC Hgb Hct POC Hct MCV MCH MCHC RDW Std Deviation RDW Coeff of So Plt Count MPV Immature Gran % (Auto) Neut % (Auto) Lymph % (Auto) [facility] % (Auto) Eos % (Auto) Baso % (Auto) Immature Gran # (Auto) Neut # (Auto) Lymph # (Auto) [facility] # (Auto) Eos # (Auto) Baso # (Auto) Echinocytes ESR PT INR APTT PTT Ratio VBG pH VBG pCO2 VBG pO2 VBG HCO3 VBG O2 Saturation VBG Base Excess Barometric Pressure POC Sodium Sodium POC Potassium Potassium POC Chloride Chloride Carbon Dioxide POC Total CO2 Anion Gap POC Anion Gap POC BUN BUN Creatinine POC Creatinine Est Cr Clr Drug Dosing Est GFR ( Amer) Est GFR (Non-Af Amer) BUN/Creatinine Ratio Glucose POC Glucose (other) Lactate 2.3 H* Calcium POC Ioniz Calcium Adriane Magnesium Total Bilirubin AST ALT Alkaline Phosphatase Troponin I < 0.015 C-Reactive Protein Total Protein Albumin Globulin Albumin/Globulin Ratio Lipase Procalcitonin Urine Color Urine Appearance Urine pH Ur Specific Hoffman Urine Protein Urine Glucose (UA) Urine Ketones Urine Blood Urine Nitrite Urine Bilirubin Urine Urobilinogen Ur Leukocyte Esterase Urine WBC (Auto) Urine RBC (Auto) U Hyaline Cast (Auto) U Epithel Cells (Auto) Urine Bacteria (Auto) Nasal Screen MRSA (PCR) Negative Stl C. diff Tox B Gene Blood Type Antibody Screen 03/16/19 03/16/19 03/16/19 05:48 07:44 07:44 WBC 17.58 H D RBC 3.28 L Hgb 9.7 L POC Hgb Hct 29.5 L POC Hct MCV 89.9 MCH 29.6 MCHC 32.9 RDW Std Deviation 48.9 H RDW Coeff of So 14.7 H Plt Count 233 MPV 9.5 Immature Gran % (Auto) 0.5 Neut % (Auto) 83.7 Lymph % (Auto) 6.1 [facility] % (Auto) 9.0 Eos % (Auto) 0.5 Baso % (Auto) 0.2 Immature Gran # (Auto) 0.09 H Neut # (Auto) 14.72 H Lymph # (Auto) 1.[address] # (Auto) 1.58 H Eos # (Auto) 0.08 Baso # (Auto) 0.03 Echinocytes ESR PT INR APTT PTT Ratio VBG pH VBG pCO2 VBG pO2 VBG HCO3 VBG O2 Saturation VBG Base Excess Barometric Pressure POC Sodium Sodium 140 POC Potassium Potassium 3.9 D POC Chloride Chloride 113 H Carbon Dioxide 23 POC Total CO2 Anion Gap 5.0 POC Anion Gap POC BUN BUN 21 H Creatinine 1.59 H POC Creatinine Est Cr Clr Drug Dosing 37.7 Est GFR ( Amer) 47.5 Est GFR (Non-Af Amer) 41.0 BUN/Creatinine Ratio 13.0 Glucose 95 POC Glucose (other) Lactate Calcium 8.5 POC Ioniz Calcium Adriane Magnesium 1.7 L Total Bilirubin AST ALT Alkaline Phosphatase Troponin I C-Reactive Protein Total Protein Albumin Globulin Albumin/Globulin Ratio Lipase Procalcitonin Urine Color Urine Appearance Urine pH Ur Specific Hoffman Urine Protein Urine Glucose (UA) Urine Ketones Urine Blood Urine Nitrite Urine Bilirubin Urine Urobilinogen Ur Leukocyte Esterase Urine WBC (Auto) Urine RBC (Auto) U Hyaline Cast (Auto) U Epithel Cells (Auto) Urine Bacteria (Auto) Nasal Screen MRSA (PCR) Stl C. diff Tox B Gene Negative Cdiff Gene Blood Type Antibody Screen 03/16/19 08:41 WBC RBC Hgb POC Hgb Hct POC Hct MCV MCH MCHC RDW Std Deviation RDW Coeff of So Plt Count MPV Immature Gran % (Auto) Neut % (Auto) Lymph % (Auto) [facility] % (Auto) Eos % (Auto) Baso % (Auto) Immature Gran # (Auto) Neut # (Auto) Lymph # (Auto) [facility] # (Auto) Eos # (Auto) Baso # (Auto) Echinocytes ESR PT INR APTT PTT Ratio VBG pH VBG pCO2 VBG pO2 VBG HCO3 VBG O2 Saturation VBG Base Excess Barometric Pressure POC Sodium Sodium POC Potassium Potassium POC Chloride Chloride Carbon Dioxide POC Total CO2 Anion Gap POC Anion Gap POC BUN BUN Creatinine POC Creatinine Est Cr Clr Drug Dosing Est GFR ( Amer) Est GFR (Non-Af Amer) BUN/Creatinine Ratio Glucose POC Glucose (other) Lactate 1.0 Calcium POC Ioniz Calcium Adriane Magnesium Total Bilirubin AST ALT Alkaline Phosphatase Troponin I C-Reactive Protein Total Protein Albumin Globulin Albumin/Globulin Ratio Lipase Procalcitonin Urine Color Urine Appearance Urine pH Ur Specific Hoffman Urine Protein Urine Glucose (UA) Urine Ketones Urine Blood Urine Nitrite Urine Bilirubin Urine Urobilinogen Ur Leukocyte Esterase Urine WBC (Auto) Urine RBC (Auto) U Hyaline Cast (Auto) U Epithel Cells (Auto) Urine Bacteria (Auto) Nasal Screen MRSA (PCR) Stl C. diff Tox B Gene Blood Type Antibody Screen PG Care Time/CCT Total # of Minutes Spent Total Time Spent with Patient: Total time spent is greater than 50% in enrollment management coordinator rdination of care (as documented) at patient's floor/unit and/or counseling patient:
[2019-03-16] MEDS: MAGNESIUM SULFATE / D5W 1 GM/100 ML BAG IV SCH ×2 (11:28→13:14)
[2019-03-16] MEDS: MAGNESIUM OXIDE 400 MG TAB PO SCH (11:28)
--- NOTE | 2019-03-16 13:17 | XRay Report ---
KUB HISTORY: Generalized abdominal pain COMPARISON: Abdomen and pelvis CT 03/15/2019. FINDINGS: Multiple mildly dilated gas-filled loops of large and small bowel seen throughout the abdom en. There is also moderately distended gas-filled stomach. Rectal wall thickening remains unchanged. Vascular calcifications are noted. No renal calculi. No ureteral calculi. No pneumoperitoneum or pne umatosis. IMPRESSION: 1. No significant change compared to the prior CT examination. 2. Rectal wall thickening persists. 3. Multiple mildly dilated gas-filled loops of large and small bowel seen throughout the abdomen. Thi s is nonspecific and could represent an ileus versus low-grade partial obstruction. Electronically signed by: Yonathan Coppola M.D. 03/16/2019 1:15 PM
[2019-03-16] MEDS: MIRTAZAPINE TAB 15 MG TAB PO SCH (21:27)
[2019-03-17] MEDS: PIPERACILLIN/TAZOBACTAM 3.375 GM in DEXTROSE 5% 100 ML IV SCH (05:16)
[2019-03-17 06:51] LABS: Basophils # (auto) 0.02 K/uL (0-0.2); Basophils % (auto) 0.2 %; Eosinophils # (auto) 0.83 K/uL (0-0.5); Hematocrit (blood only) 27.6 % (42-52); Hemoglobin 9.1 g/dL (14.0-18.0); Immature Granulocytes # (auto) 0.03 K/uL (0.00-0.02); Immature Granulocytes % (auto) 0.3 %; Lymphocytes # (auto) 1.39 K/uL (1.2-3.4); Lymphocytes % (auto) 13.3 %; Mean Corpuscular Hemoglobin 29.4 pg (25-34); Mean Corpuscular Volume 89.3 fL (80-100); Mean Platelet Volume 9.7 fL (7.4-10.4); Monocytes # (auto) 1.01 K/uL (0.11-0.59); Monocytes % (auto) 9.7 %; Neutrophils # (auto) 7.14 K/uL (1.4-6.5); Neutrophils % (auto) 68.5 %; Platelet Count 233 K/uL (130-400); RDW Coefficient of Variation 14.9 % (11.5-14.5); RDW Standard Deviation 48.5 fL (36.4-46.3); Red Blood Count 3.09 M/uL (4.7-6.1); White Blood Count 10.42 K/uL (4.8-10.8)
[2019-03-17 07:34] LABS: Albumin Globulin Ratio 0.7 (0.9-2); Albumin Level 2.2 gm/dl (3.4-5.0); BUN Creatinine Ratio 10.1 (10-20); Bilirubin,Total 0.2 mg/dl (0.2-1); Calcium 8.2 mg/dl (8.5-10.1); Creatinine Clr Calc Pharmacy 49.1 ml/min; Est GFR (African American) 65.4; Est GFR (Non-African American) 56.4; Globulin 3.2 gm/dl (2.5-4.0); Magnesium 1.9 mg/dl (1.8-2.4); Potassium 3.6 mmol/L (3.5-5.1); Total Protein 5.4 gm/dl (6.4-8.2)
[2019-03-17] MEDS: FINASTERIDE 5 MG TAB PO SCH (08:33)
[2019-03-17] MEDS: ASPIRIN 81 MG ECTAB PO SCH (08:33)
[2019-03-17] MEDS: TAMSULOSIN HCL 0.4 MG CAP PO SCH (08:33)
[2019-03-17] MEDS: MAGNESIUM OXIDE 400 MG TAB PO SCH (08:33)
[2019-03-17] MEDS: PERPHENAZINE 2 MG TABLET PO SCH ×3 (08:33→20:21)
[2019-03-17] MEDS: LACTOBACILLUS ACIDOPHILUS (FLORANEX) TAB PO SCH ×4 (08:34→20:20)
[2019-03-17] MEDS: BENZTROPINE MESYLATE 1 MG TAB PO SCH ×2 (08:37→20:19)
[2019-03-17] MEDS: MEMANTINE HCL 10 MG TAB PO SCH ×2 (08:38→20:21)
[2019-03-17] MEDS: HEPARIN SOD 5,000 UNIT/0.5 ML VIAL SQ SCH ×2 (08:38→20:55)
[2019-03-17] MEDS: ARTIFICIAL TEARS OP SCH ×2 (08:49→20:19)
[2019-03-17] MEDS: MENTHOL-ZINC OXIDE 360 APPLN/120 GM TUBE EXT SCH (08:49)
--- NOTE | 2019-03-17 12:31 | Electroencephalogram ---
EEG Procedure Note Date of Service March 17, 2019 Start / End Times Start Time: 07:11 End Time: 07:[address] Moulton History A 78 year old male with syncope. EEG performed for evaluation of epileptiform activity. Home Medication List Home Medications Medication Instructions Recorded Confirmed Type Artificial Tears (PF) 1 drp OPB BID 11/22/18 03/15/19 History Calmoseptine 1 applic TOPICAL DAILY 11/22/18 03/15/19 History Bruni's wort 300 mg PO DAILY 11/22/18 03/15/19 History aspirin 81 mg PO DAILY 11/22/18 03/15/19 History benztropine 1 mg PO BID 11/22/18 03/15/19 History docusate sodium 100 mg PO BID 11/22/18 03/15/19 History fluphenazine decanoate 25 mg IM MONTHLY 11/22/18 03/15/19 History lorazepam 0.5 mg PO TID PRN 11/22/18 03/15/19 History memantine 10 mg PO BID 11/22/18 03/15/19 History mirtazapine 30 mg PO HS 11/22/18 03/15/19 History multivitamin 1 tab PO DAILY 11/22/18 03/15/19 History perphenazine 8 mg PO TID 11/22/18 03/15/19 History lisinopril 10 mg PO DAILY 02/08/19 03/15/19 History lidocaine HCl 10 ml EXT Q6H PRN #50 ml 02/24/19 03/15/19 Rx Lactobacillus acidoph-L.bulgar 4 tab PO QID 03/15/19 03/15/19 History [Floranex] acetaminophen [Tylenol] 650 mg PO Q6H PRN MDD 3G 03/15/19 03/15/19 History bisacodyl [Dulcolax (bisacodyl)] 10 mg [place] DAILY PRN 03/15/19 03/15/19 History tamsulosin 0.4 mg PO DAILY 03/15/19 03/15/19 History Inpatient Medication List Artificial Tears (Artificial Tears) 1 drops OP BID [facility] Stop: 04/15/19 08:59 Last Admin: 03/17/19 08:49 Dose: 1 drops Documented by: [id number] Admin: 03/16/19 21:25 Dose: Not Given Documented by: [id number] Admin: 03/16/19 09:04 Dose: 1 drops Documented by: [id number] Aspirin (Ecotrin Ectab) 81 mg PO DAILY [facility] Stop: 04/15/19 08:59 Last Admin: 03/17/19 08:33 Dose: 81 mg Documented by: [id number] Admin: 03/16/19 09:04 Dose: 81 mg Documented by: [id number] Benztropine Mesylate (Cogentin) 1 mg PO BID [facility] Stop: 04/14/19 20:59 Last Admin: 03/17/19 08:37 Dose: 1 mg Documented by: [id number] Admin: 03/16/19 21:25 Dose: 1 mg Documented by: [id number] Admin: 03/16/19 09:04 Dose: 1 mg Documented by: [id number] Admin: 03/15/19 21:51 Dose: 1 mg Documented by: [id number] Calamine/Phenol (Calmoseptine) 1 appln EXT DAILY [facility] Stop: 04/15/19 08:59 Last Admin: 03/17/19 08:49 Dose: 1 appln Documented by: [id number] Admin: 03/16/19 09:05 Dose: 1 appln Documented by: [id number] Finasteride (Proscar) 5 mg PO DAILY [facility] Stop: 04/15/19 08:59 Last Admin: 03/17/19 08:33 Dose: 5 mg Documented by: [id number] Admin: 03/16/19 09:04 Dose: 5 mg Documented by: [id number] Heparin Sodium (Porcine) (Heparin Sodium (Porcine)) 5,000 units SQ Q12 [facility] Stop: 04/14/19 20:59 Last Admin: 03/17/19 08:38 Dose: 5,000 units Documented by: [id number] Cosigned by: [id number] Admin: 03/16/19 21:20 Dose: 5,000 units Documented by: [id number] Cosigned by: [id number] Admin: 03/16/19 09:05 Dose: 5,000 units Documented by: [id number] Cosigned by: [id number] Admin: 03/15/19 21:51 Dose: 5,000 units Documented by: [id number] Cosigned by: [id number] Piperacillin Sod/Tazobactam (Sod 3.375 gm/ Dextrose) 115 mls @ 28.75 mls/hr IV Q8H [facility]; Protocol Stop: 03/17/19 21:59 Last Infusion: 03/17/19 09:20 Dose: 0 mls/hr Documented by: [id number] Admin: 03/17/19 05:16 Dose: 28.8 mls/hr Documented by: [id number] Infusion: 03/17/19 01:49 Dose: 0 mls/hr Documented by: [id number] Admin: 03/16/19 21:24 Dose: 28.8 mls/hr Documented by: [id number] Infusion: 03/16/19 19:22 Dose: 0 mls/hr Documented by: [id number] Admin: 03/16/19 14:37 Dose: 28.8 mls/hr Documented by: [id number] Infusion: 03/16/19 11:28 Dose: 0 mls/hr Documented by: [id number] Admin: 03/16/19 06:04 Dose: 28.8 mls/hr Documented by: [id number] Infusion: 03/16/19 02:05 Dose: 0 mls/hr Documented by: [id number] Admin: 03/15/19 22:04 Dose: 28.8 mls/hr Documented by: [id number] Lactobacillus Acidophilus (Floranex) 4 tab PO QID [facility] Stop: 04/14/19 20:59 Last Admin: 03/17/19 08:34 Dose: 4 tab Documented by: [id number] Admin: 03/16/19 21:26 Dose: 4 tab Documented by: [id number] Admin: 03/16/19 18:05 Dose: 4 tab Documented by: [id number] Admin: 03/16/19 13:15 Dose: 4 tab Documented by: [id number] Admin: 03/16/19 09:04 Dose: 4 tab Documented by: [id number] Admin: 03/15/19 21:51 Dose: 4 tab Documented by: [id number] Magnesium Oxide (Mag-Ox) 400 mg PO QAM [facility] Stop: 04/15/19 10:29 Last Admin: 03/17/19 08:33 Dose: 400 mg Documented by: [id number] Admin: 03/16/19 11:28 Dose: 400 mg Documented by: [id number] Memantine (Namenda) 10 mg PO BID [facility] Stop: 04/14/19 20:59 Last Admin: 03/17/19 08:38 Dose: 10 mg Documented by: [id number] Admin: 03/16/19 21:26 Dose: 10 mg Documented by: [id number] Admin: 03/16/19 09:04 Dose: 10 mg Documented by: [id number] Admin: 03/15/19 21:51 Dose: 10 mg Documented by: [id number] Mirtazapine (Remeron) 30 mg PO HS [facility] Stop: 04/14/19 20:59 Last Admin: 03/16/19 21:27 Dose: 30 mg Documented by: [id number] Admin: 03/15/19 21:51 Dose: 30 mg Documented by: [id number] Perphenazine (Trilafon) 8 mg PO TID [facility] Stop: 04/15/19 08:59 Last Admin: 03/17/19 08:33 Dose: 8 mg Documented by: [id number] Admin: 03/16/19 21:26 Dose: 8 mg Documented by: [id number] Admin: 03/16/19 14:37 Dose: 8 mg Documented by: [id number] Admin: 03/16/19 09:05 Dose: 8 mg Documented by: [id number] Tamsulosin HCl (Flomax) 0.4 mg PO DAILY [facility] Stop: 04/15/19 08:59 Last Admin: 03/17/19 08:33 Dose: 0.4 mg Documented by: [id number] Admin: 03/16/19 09:04 Dose: 0.4 mg Documented by: [id number] Discontinued Medications Sodium Chloride (Nss 1000ml) 1,000 mls @ 999 mls/hr IV .Q1H1M ONE Stop: 03/15/19 16:57 Last Infusion: 03/15/19 17:50 Dose: 0 mls/hr Documented by: [id number] Admin: 03/15/19 16:50 Dose: 999 mls/hr Documented by: [id number] Lactated Ringer's (Lr) 1,000 mls @ 999 mls/hr IV .Q1H1M ONE Stop: 03/15/19 17:43 Last Infusion: 03/15/19 18:19 Dose: 0 mls/hr Documented by: [id number] Admin: 03/15/19 17:26 Dose: 999 mls/hr Documented by: [id number] Piperacillin Sod/Tazobactam Sod (Zosyn) 4.5 gm in 120 mls @ 240 mls/hr IV NOW ONE Stop: 03/15/19 17:20 Last Infusion: 03/15/19 18:19 Dose: 0 mls/hr Documented by: [id number] Admin: 03/15/19 17:26 Dose: 240 mls/hr Documented by: [id number] Sodium Chloride (Nss 1000ml) 1,000 mls @ 125 mls/hr IV .Q8H [facility] Stop: 04/14/19 20:29 Last Infusion: 03/16/19 19:22 Dose: 0 mls/hr Documented by: [id number] Infusion: 03/16/19 14:40 Dose: 0 mls/hr Documented by: [id number] Infusion: 03/16/19 13:15 Dose: 0 mls/hr Documented by: [id number] Admin: 03/16/19 06:03 Dose: 125 mls/hr Documented by: [id number] Infusion: 03/16/19 05:52 Dose: 125 mls/hr Documented by: [id number] Admin: 03/15/19 21:52 Dose: 125 mls/hr Documented by: [id number] Magnesium Sulfate/Dextrose (Magnesium Sulfate / D5w) 1 gm in 100 mls @ 100 m ls/hr IV Q1H [facility] Stop: 03/16/19 12:29 Last Infusion: 03/16/19 14:40 Dose: 0 mls/hr Documented by: [id number] Admin: 03/16/19 13:14 Dose: 100 mls/hr Documented by: [id number] Infusion: 03/16/19 12:28 Dose: 100 mls/hr Documented by: [id number] Admin: 03/16/19 11:28 Dose: 100 mls/hr Documented by: [id number] Sodium Chloride (Nss 1000ml) 1,000 mls @ 80 mls/hr IV .[id number] [facility] Stop: 04/15/19 10:29 Last Infusion: 03/16/19 19:22 Dose: 0 mls/hr Documented by: [id number] Admin: 03/16/19 13:16 Dose: 80 mls/hr Documented by: [id number] Description This is a 21 electrode EEG with a single channel dedicated to limited EKG. The electrodes were placed in accordance with the International 10-20 system. REPORT: At the onset of the EEG, the patient is drowsy. The posterior dominant rhythm is not well seen. Instead the background is symmetric and predominantly consist of moderate amplitude 6-8 theta activity with intermixed faster frequencies. Photic stimulation does not elicit any abnormalities. No stage II sleep transients are seen. Frequent artifact is noted throughout the record. IMPRESSION: This is a normal drowsy EEG. No epileptiform discharges are seen. A repeat EEG as outpatient when patient is more alert may be beneficial to better characterize the waking background.
--- NOTE | 2019-03-17 14:03 | Hospitalist Progress Note ---
Date of Service March 17, 2019 Assessment & Plan (1) Sepsis: Severe Sepsis suspected urinary tract infection Proctocolitis Diarrhea -admission WBC with Leukocytosis of 29,000 -as per ED notes, patient presented on 03/16/19 with persistent abdominal pain -admission CT Abdomen:Generalized nonobstructive ileus with fluid-filled loops of small bowel as well as colon. Interval decompression of the bladder due to placement of a Stafford catheter. Persistent bladder wall thickening. Findings c onsistent with circumferential wall thickening of the rectum and low sigmoid suggesting slightly progressive proctocolitis compared to the prior exam. No evidence for drainable abscess or collection at this time. Slight body wall anasarca. -patient noted to have elevated lactic acid levels of 2.4, lactic acid levels resolved after IV fluids and antibiotics -continue empiric Zosyn which was started on admission for protocolitis or possible urinary tract infection -C.difficile test is negative, stool culture pending -follow blood cultures -echocardiogram (TTE) does not show obvious vegetations -patient was noted to sit in his diarrhea with stafford on 03/16/19. improvements of WBC while on Zosyn. stop Zosyn on 03/17/19 and switch to ceftriaxone and Flagyl q8 hours Urinary retention (chronic) -Abdominal distention improved after placing Stafford catheter in ED -Continue Stafford catheter -Continue Flomax, Proscar -Urology following the patient and plan to move up the patient's cystoscopy visit tentatively for Apr 03 at 12:45 noon in [facility] [place] office for evaluation in case of future TURP ([facility] urology will hold an OR date for the patient on Apr 06, 2019) acute kidney injury on Chronic kidney disease, stage 2-3 -Baseline creatinine ~1.2 -admission Creatinine levels 1.72 -after IV fluids which were stopped on 03/16/19, the creatinine is 1.22 on 03/17/19 -Continue Stafford catheter Hypertension -Presented with hypotension -Lisinopril resumed on 03/17/19 as blood pressures now hypertensive Syncope -was Monitored on telemetry, no acute telemetry events -EEG 03/17/19: This is a normal drowsy EEG. No epileptiform discharges are seen -transfer off telemetry on 03/17/19 History of stroke in the past -Continue aspirin Vascular dementia Schizoaffective disorder -Continue home medications -PT/OT Hypomagnesemia -serum magnesium 1.7 on 03/16/19, IV and oral magnesium supplements given on 03/16/19, continue as daily magnesium orally for now DVT prophylaxis Heparin SQ CODE STATUS Full code Subjective Patient seen and examined at bedside. reports less diarrhea. no abdominal pain. no chest pain. no vomiting Review of Systems Review of Systems: All systems reviewed & are unremarkable except as noted in HPI & below Physical Exam Constitutional: comfortable Eyes: PERRL, conjunctivae normal, anicteric sclerae EOM intact bilaterally ENMT: right upper lip mass, chronic as hemangioma Neck: normal visual inspection Respiratory: normal respiratory effort, lungs clear to auscultation Cardiovascular: Rate/Rhythm: regular rate Gastrointestinal (Abdomen): normal bowel sounds, soft, nontender, no hepatosplenomegaly Musculoskeletal: Head/Neck/Chest: normocephalic and head atraumatic Neurologic: PERRL, EOMI, accommodation nl, no face palsy, no dysarthria Psychiatric: Orientation: alert and cooperative Genitourinary: + bladder abnormality (stafford) Results & Data Vital Signs (Past 12 Hours) Vital Signs Temp Pulse Pulse Resp BP Pulse Ox 03/17/19 12:32 36.5 C 89 18 170/92 H 99 03/17/19 08:00 84 03/17/19 07:54 36.5 C 77 21 159/70 H 99 03/17/19 03:51 36.6 C 75 19 133/70 96 (1) Sepsis Sepsis acute organ dysfunction status: unspecified Sepsis type: sepsis due to unspecified organism Qualified Code(s): A41.9 - Sepsis, unspecified organism
[2019-03-17] MEDS: metroNIDAZOLE 500 MG/100 ML BAG IV SCH ×2 (15:43→21:58)
[2019-03-17] MEDS: cefTRIAXone SODIUM 1,000 MG in DEXTROSE 5% 50 ML IV SCH (15:43)
[2019-03-17] MEDS: lisinopriL 10 MG TAB PO SCH (15:44)
[2019-03-17] MEDS: MIRTAZAPINE TAB 15 MG TAB PO SCH (20:20)
[2019-03-18] MEDS: metroNIDAZOLE 500 MG/100 ML BAG IV SCH ×3 (06:01→20:59)
[2019-03-18 06:46] LABS: Hematocrit (blood only) 27.4 % (42-52); Hemoglobin 9.4 g/dL (14.0-18.0); Mean Corpuscular Hemoglobin 30.6 pg (25-34); Mean Corpuscular Hgb Conc 34.3 g/dL (32-36); Mean Corpuscular Volume 89.3 fL (80-100); Mean Platelet Volume 9.4 fL (7.4-10.4); Platelet Count 257 K/uL (130-400); RDW Coefficient of Variation 14.5 % (11.5-14.5); RDW Standard Deviation 47.6 fL (36.4-46.3); Red Blood Count 3.07 M/uL (4.7-6.1); White Blood Count 10.77 K/uL (4.8-10.8)
[2019-03-18] MEDS: ARTIFICIAL TEARS OP SCH ×2 (09:10→20:57)
[2019-03-18] MEDS: TAMSULOSIN HCL 0.4 MG CAP PO SCH (09:11)
[2019-03-18] MEDS: MAGNESIUM OXIDE 400 MG TAB PO SCH (09:14)
[2019-03-18] MEDS: ASPIRIN 81 MG ECTAB PO SCH (09:15)
[2019-03-18] MEDS: FINASTERIDE 5 MG TAB PO SCH (09:16)
[2019-03-18] MEDS: HEPARIN SOD 5,000 UNIT/0.5 ML VIAL SQ SCH ×2 (09:17→20:57)
[2019-03-18] MEDS: lisinopriL 10 MG TAB PO SCH (09:17)
--- NOTE | 2019-03-18 10:03 | Hospitalist Progress Note ---
Date of Service March 18, 2019 Assessment & Plan (1) Sepsis: Severe Sepsis suspected urinary tract infection Proctocolitis Diarrhea -admission WBC with Leukocytosis of 29,000 -as per ED notes, patient presented on 03/16/19 with persistent abdominal pain -admission CT Abdomen:Generalized nonobstructive ileus with fluid-filled loops of small bowel as well as colon. Interval decompression of the bladder due to placement of a Stafford catheter. Persistent bladder wall thickening. Findings c onsistent with circumferential wall thickening of the rectum and low sigmoid suggesting slightly progressive proctocolitis compared to the prior exam. No evidence for drainable abscess or collection at this time. Slight body wall anasarca. -patient noted to have elevated lactic acid levels of 2.4, lactic acid levels resolved after IV fluids and antibiotics -continue empiric Zosyn which was started on admission for protocolitis or possible urinary tract infection -C.difficile test is negative, stool culture pending -follow blood cultures -echocardiogram (TTE) does not show obvious vegetations -patient was noted to sit in his diarrhea with stafford on 03/16/19. improvements of WBC while on Zosyn. stop Zosyn on 03/17/19 and switch to ceftriaxone and Flagyl q8 hours -03/18/19: Diarrhea appears resolved at this time, further monitor bowel movements. White blood cell counts 10,000. continue IV antibiotics for now. Urinary retention (chronic) -Abdominal distention improved after placing Stafford catheter in ED -Continue Stafford catheter -Continue Flomax, Proscar -Urology following the patient and plan to move up the patient's cystoscopy visit tentatively for Apr 03 at 12:45 noon in [facility] [place] office for evaluation in case of future TURP ([facility] urology will hold an OR date for the patient on Apr 06, 2019) acute kidney injury on Chronic kidney disease, stage 2-3 -Baseline creatinine ~1.2 -admission Creatinine levels 1.72 -after IV fluids which were stopped on 03/16/19, the creatinine is 1.22 on 03/17/19 -Continue Stafford catheter Hypertension -Presented with hypotension -Lisinopril resumed on 03/17/19 as blood pressures became hypertensive -continue lisinopril Syncope -was Monitored on telemetry, no acute telemetry events -EEG 03/17/19: This is a normal drowsy EEG. No epileptiform discharges are seen -transfer off telemetry on 03/17/19 History of stroke in the past -Continue aspirin Vascular dementia Schizoaffective disorder -Continue home medications -PT/OT Hypomagnesemia -serum magnesium 1.7 on 03/16/19, IV and oral magnesium supplements given on 03/16/19, continue as daily magnesium orally for now DVT prophylaxis Heparin SQ CODE STATUS Full code Subjective Patient seen and examined at bedside. denies diarrhea today or yesterday. No abdominal pain. no vomiting. White blood cell counts as 10,000. No fevers. Patient denies lightheadedness. denies dizziness. Review of Systems Review of Systems: All systems reviewed & are unremarkable except as noted in HPI & below Physical Exam Constitutional: comfortable Eyes: PERRL, conjunctivae normal, anicteric sclerae EOM intact bilaterally Neck: normal visual inspection Respiratory: normal respiratory effort, lungs clear to auscultation Cardiovascular: Rate/Rhythm: regular rate Gastrointestinal (Abdomen): normal bowel sounds, soft, nontender, no hepatosplenomegaly Musculoskeletal: Head/Neck/Chest: normocephalic and head atraumatic Neurologic: PERRL, EOMI, accommodation nl, no face palsy, no dysarthria Psychiatric: Orientation: alert and cooperative Genitourinary: + bladder abnormality (stafford) Results & Data Vital Signs (Past 12 Hours) Vital Signs Temp Pulse Pulse Resp BP Pulse Ox 03/18/19 07:38 36.9 C 78 20 147/78 H 97 03/17/19 23:25 36.8 C 90 18 110/64 97 (1) Sepsis Sepsis acute organ dysfunction status: unspecified Sepsis type: sepsis due to unspecified organism Qualified Code(s): A41.9 - Sepsis, unspecified organism
[2019-03-18] MEDS: LACTOBACILLUS ACIDOPHILUS (FLORANEX) TAB PO SCH ×4 (11:37→20:54)
[2019-03-18] MEDS: PERPHENAZINE 2 MG TABLET PO SCH ×3 (11:38→20:55)
[2019-03-18] MEDS: BENZTROPINE MESYLATE 1 MG TAB PO SCH ×2 (11:39→20:56)
[2019-03-18] MEDS: MENTHOL-ZINC OXIDE 360 APPLN/120 GM TUBE EXT SCH (12:01)
[2019-03-18] MEDS: MEMANTINE HCL 10 MG TAB PO SCH ×2 (12:02→20:56)
[2019-03-18] MEDS: cefTRIAXone SODIUM 1,000 MG in DEXTROSE 5% 50 ML IV SCH (13:58)
[2019-03-18] MEDS: PIPERACILLIN/TAZOBACTAM 3.375 GM in DEXTROSE 5% 100 ML IV SCH (15:34)
[2019-03-18] MEDS: MIRTAZAPINE TAB 15 MG TAB PO SCH (20:58)
[2019-03-18 22:58] VITALS: O2SAT 96
[2019-03-19] MEDS: metroNIDAZOLE 500 MG/100 ML BAG IV SCH (06:17)
[2019-03-19 06:24] LABS: Basophils # (auto) 0.04 K/uL (0-0.2); Basophils % (auto) 0.4 %; Eosinophils # (auto) 0.73 K/uL (0-0.5); Eosinophils % (auto) 7.6 %; Hematocrit (blood only) 26.9 % (42-52); Hemoglobin 9.1 g/dL (14.0-18.0); Immature Granulocytes # (auto) 0.03 K/uL (0.00-0.02); Immature Granulocytes % (auto) 0.3 %; Lymphocytes # (auto) 2.01 K/uL (1.2-3.4); Mean Corpuscular Hgb Conc 33.8 g/dL (32-36); Mean Corpuscular Volume 88.8 fL (80-100); Mean Platelet Volume 9.4 fL (7.4-10.4); Monocytes % (auto) 8.4 %; Neutrophils # (auto) 5.95 K/uL (1.4-6.5); Neutrophils % (auto) 62.3 %; Platelet Count 248 K/uL (130-400); RDW Coefficient of Variation 14.6 % (11.5-14.5); RDW Standard Deviation 47.3 fL (36.4-46.3); Red Blood Count 3.03 M/uL (4.7-6.1); White Blood Count 9.56 K/uL (4.8-10.8)
[2019-03-19 06:51] LABS: BUN Creatinine Ratio 8.9 (10-20); Calcium 7.8 mg/dl (8.5-10.1); Est GFR (African American) 88.5; Est GFR (Non-African American) 76.4; Magnesium 1.7 mg/dl (1.8-2.4); Potassium 4.1 mmol/L (3.5-5.1)
[2019-03-19 07:26] VITALS: TEMP 98.4
[2019-03-19] MEDS: MAGNESIUM SULFATE / D5W 1 GM/100 ML BAG IV SCH ×2 (07:53→09:14)
[2019-03-19] MEDS: BENZTROPINE MESYLATE 1 MG TAB PO SCH (07:55)
[2019-03-19] MEDS: MEMANTINE HCL 10 MG TAB PO SCH (07:56)
[2019-03-19] MEDS: ASPIRIN 81 MG ECTAB PO SCH (07:56)
[2019-03-19] MEDS: MAGNESIUM OXIDE 400 MG TAB PO SCH (07:56)
[2019-03-19] MEDS: LACTOBACILLUS ACIDOPHILUS (FLORANEX) TAB PO SCH (07:58)
[2019-03-19] MEDS: PERPHENAZINE 2 MG TABLET PO SCH (07:58)
[2019-03-19] MEDS: lisinopriL 10 MG TAB PO SCH (07:59)
[2019-03-19] MEDS: TAMSULOSIN HCL 0.4 MG CAP PO SCH (08:00)
[2019-03-19] MEDS: MENTHOL-ZINC OXIDE 360 APPLN/120 GM TUBE EXT SCH (08:00)
[2019-03-19] MEDS: ARTIFICIAL TEARS OP SCH (08:01)
[2019-03-19] MEDS: HEPARIN SOD 5,000 UNIT/0.5 ML VIAL SQ SCH (08:03)
--- NOTE | 2019-03-19 09:38 | Hospitalist Progress Note ---
Date of Service March 19, 2019 Assessment & Plan (1) Sepsis: Severe Sepsis suspected urinary tract infection Proctocolitis Diarrhea -admission WBC with Leukocytosis of 29,000 -as per ED notes, patient presented on 03/15/19 with persistent abdominal pain -admission CT Abdomen:Generalized nonobstructive ileus with fluid-filled loops of small bowel as well as colon. Interval decompression of the bladder due to placement of a Stafford catheter. Persistent bladder wall thickening. Findings c onsistent with circumferential wall thickening of the rectum and low sigmoid suggesting slightly progressive proctocolitis compared to the prior exam. No evidence for drainable abscess or collection at this time. Slight body wall anasarca. -patient noted to have elevated lactic acid levels of 2.4, lactic acid levels resolved after IV fluids and antibiotics -continue empiric Zosyn which was started on admission for protocolitis or possible urinary tract infection -C.difficile test is negative, stool culture negative -blood cultures are negative -echocardiogram (TTE) does not show obvious vegetations -patient was noted to sit in his diarrhea with stafford on 03/16/19. improvements of WBC while on Zosyn. stop Zosyn on 03/17/19 and switch to ceftriaxone and Flagyl q8 hours -03/18/19: Diarrhea appears resolved at this time, further monitor bowel movements. White blood cell counts 10,000. continue IV antibiotics for now. -03/19/19: White blood cell count under 10K as 9560. No diarrhea. will stop further antibiotics after AM dosing of ceftriaxone and Flagyl Urinary retention (chronic) -Abdominal distention improved after placing Stafford catheter in ED -Continue Stafford catheter -Continue Flomax, Proscar -Discussed with patient about plans for hospital discharge with return to with [facility] nursing [facility] and that patient will need follow up with [facility] [place] clinic and primary care doctor. -[facility] service evaluated the patient in the hospital and paln to move up the patient's cystoscopy visit tentatively for Apr 03 at 12:45 noon in [facility] [place] office for evaluation in case of future TURP ([facility] urology will hold an OR date for the patient on Apr 06, 2019) -[facility] should call [facility] on [address] , [place] [address] at phone number in regards to confirming the urology follow up care or to make a urology clinic appointment acute kidney injury on Chronic kidney disease, stage 2-3 -Baseline creatinine ~1.2 -admission Creatinine levels 1.72 -after IV fluids which were stopped on 03/16/19, the creatinine is 1.22 on 03/17/19, creatinine is 0.95 on 03/19/19 -acute kidney injury resolved -Continue Stafford catheter -Patient should have renal function and serum magnesium and CBC re-checked by primary medical doctor 1 week after hospital discharge Hypomagnesemia -serum magnesium 1.7 on 03/16/19, IV and oral magnesium supplements given on 03/16/19 -daily oral magnesium oral -serum magnesium 1.7 on 03/19/19 and additional IV magnesium -discharge on magnesium supplements daily Hypertension -Presented with hypotension -Lisinopril resumed on 03/17/19 as blood pressures became hypertensive -continue lisinopril Syncope -was Monitored on telemetry, no acute telemetry events -EEG 03/17/19: This is a normal drowsy EEG. No epileptiform discharges are seen -transfer off telemetry on 03/17/19 History of stroke in the past -Continue aspirin Vascular dementia Schizoaffective disorder -Continue home medications -PT/OT DVT prophylaxis Heparin SQ CODE STATUS Full code Discharge Diagnosis: Severe Sepsis, suspected urinary tract infection, Proctocolitis, Diarrhea, urinary retention, acute kidney injury on Chronic kidney disease stage 2-3 (acute kidney injury resolved), hypertension, Syncope, Hypomagnesemia Subjective Patient seen and examined at bedside. Patient does not have diarrhea. Patient's stafford continues to drain the urine. Patient does not have abdominal pain. No vomiting. No fever. Patient denies lightheadedness or dizziness. Discussed with patient about plans for hospital discharge with return to with [facility] nursing [facility] and that patient will need follow up with [facility] clinic and primary care doctor. Review of Systems Review of Systems: All systems reviewed & are unremarkable except as noted in HPI & below Physical Exam Constitutional: comfortable Eyes: PERRL, conjunctivae normal, anicteric sclerae EOM intact bilaterally Neck: normal visual inspection Respiratory: normal respiratory effort, lungs clear to auscultation Cardiovascular: Rate/Rhythm: regular rate Gastrointestinal (Abdomen): normal bowel sounds, soft, nontender, no hepatosplenomegaly Musculoskeletal: Head/Neck/Chest: normocephalic and head atraumatic Neurologic: PERRL, EOMI, accommodation nl, no face palsy, no dysarthria Psychiatric: Orientation: alert and cooperative Genitourinary: + bladder abnormality (stafford) Results & Data Vital Signs (Past 12 Hours) Vital Signs Temp Pulse Resp BP Pulse Ox 03/19/19 07:25 36.9 C 83 18 109/68 96 03/18/19 22:57 36.8 C 86 20 151/69 H 96 (1) Sepsis Sepsis acute organ dysfunction status: unspecified Sepsis type: sepsis due to unspecified organism Qualified Code(s): A41.9 - Sepsis, unspecified organism
[2019-03-19] MEDS ORDERED: cefTRIAXone SODIUM 1,000 MG in DEXTROSE 5% 50 ML IV STA (09:48)
--- NOTE | 2019-03-19 10:03 | Discharge Summary ---
Date of Service March 19, 2019 Admission HPI Per Admitting Provider Patient is a 78-year-old male with history of vascular dementia, schizoaffective disorder, hypertension, CVA, chronic urinary retention and other problems presents from [facility] with an episode of syncope. Patient was recently discharged from [facility] to [facility] after being treated for complicated UTI and Pseudomonas septicemia. Patient is a poor historian secondary to his dementia. Most of the history is obtained from old records, ER physician and staff at [facility]. Patient had physical therapy earlier today at outside and had a syncopal episode. No known seizure-like activity. Patient was u nconscious for unknown duration. When awake patient was not confused as per staff. Patient was incontinent with stools today. No blood in the stools noted. Patient also had abdominal distention and urinary retention that was noted by the staff today. Patient had chronic urinary retention and his Stafford catheter was removed 1 week ago. Patient completed his antibiotic course for urinary tract infection on March 11, 2019. Patient was noted to be hypotensive while in ED which improved with IV fluids. He was noted to have elevated white blood cell count, lactate levels and seems to be dehydrated with elevation of creatinine. Patient was started empirically on Zosyn while in ED. He denies any history of chest pain, SOB, dizziness, cough, fever, chills, headache, nausea, vomiting, abdominal pain, dysuria, hematuria. Admission Exam Per Admitting Provider Vitals signs as noted above General Appearance:Moderately built and nourished, no apparent distress Head: normocephalic, Atraumatic,+ upper lip hemangioma Eyes: normal inspection, EOMI Neck: supple, Trachea midline Respiratory/Chest: Normal breath sounds, CTA, No accessory muscle use Cardiovascular: S1, S2, No murmur, tachycardia Abdomen/GI:Soft, Non tender, no guarding or rigidity, bowel sounds present Extremities/Musculoskelatal:normal inspection, B/L LE edema Neurologic/Psych: Alert, awake, oriented to place and person, grossly no focal neurological deficits, + dementia Skin: normal color, warm Principal Diagnosis Severe Sepsis, suspected urinary tract infection, Proctocolitis, Diarrhea, urinary retention, acute kidney injury on Chronic kidney disease stage 2-3 (acute kidney injury resolved), hypertension, Syncope, Hypomagnesemia Discharge Exam Constitutional comfortable Eyes PERRL, conjunctivae normal, anicteric sclerae EOM intact bilaterally Neck normal visual inspection Respiratory normal respiratory effort, lungs clear to auscultation Cardiovascular Rate/Rhythm: regular rate Gastrointestinal (Abdomen) normal bowel sounds, soft, nontender, no hepatosplenomegaly Musculoskeletal Head/Neck/Chest: normocephalic and head atraumatic Neurologic PERRL, EOMI, accommodation nl, no face palsy, no dysarthria Psychiatric Orientation: alert and cooperative Genitourinary + bladder abnormality (stafford) Discharge Data Allergies Allergy/AdvReac Type Severity Reaction Status Date / Time olanzapine Allergy Mild "IT DOES Verified 02/19/19 12:05 NOT WORK" risperidone Allergy Unknown UNKNOWN Verified 02/19/19 12:05 Tricyclic Antidepressants Allergy Unknown . Uncoded 02/19/19 12:05 Flu Virus Vaccine AdvReac Unknown CAUSES Uncoded 02/19/19 12:05 PAIN AT INJECTION SITE Consultations 03/15/19 17:45 ED Decision to Admit Stat 03/15/19 20:30 Consult Case Management - Discharge Planning Routine Consult Urology Routine Ordered Studies 03/15/19 16:18 CT abd pelvis wo con Stat Hospital Course (1) Sepsis: Severe Sepsis suspected urinary tract infection Proctocolitis Diarrhea -admission WBC with Leukocytosis of 29,000 -as per ED notes, patient presented on 03/15/19 with persistent abdominal pain -admission CT Abdomen:Generalized nonobstructive ileus with fluid-filled loops of small bowel as well as colon. Interval decompression of the bladder due to placement of a Stafford catheter. Persistent bladder wall thickening. Findings consistent with circumferential wall thickening of the rectum and low sigmoid suggesting slightly progressive proctocolitis compared to the prior exam. No evidence for drainable abscess or collection at this time. Slight body wall anasarca. -patient noted to have elevated lactic acid levels of 2.4, lactic acid levels resolved after IV fluids and antibiotics -continue empiric Zosyn which was started on admission for protocolitis or possible urinary tract infection -C.difficile test is negative, stool culture negative -blood cultures are negative -echocardiogram (TTE) does not show obvious vegetations -patient was noted to sit in his diarrhea with stafford on 03/16/19. improvements of WBC while on Zosyn. stop Zosyn on 03/17/19 and switch to ceftriaxone and Flagyl q8 hours -03/18/19: Diarrhea appears resolved at this time, further monitor bowel movements. White blood cell counts 10,000. continue IV antibiotics for now. -03/19/19: White blood cell count under 10K as 9560. No diarrhea. will stop further antibiotics after AM dosing of ceftriaxone and Flagyl Urinary retention (chronic) -Abdominal distention improved after placing Stafford catheter in ED -Continue Stafford catheter -Continue Flomax, Proscar -Discussed with patient about plans for hospital discharge with return to with [facility] nursing [facility] and that patient will need follow up with [facility] clinic and primary care doctor. -[facility] service evaluated the patient in the hospital and paln to move up the patient's cystoscopy visit tentatively for Apr 03 at 12:45 noon [facility] in case of future TURP ([facility] urology will hold an OR date for the patient on Apr 06, 2019) -[facility] should call [facility] on [address], [place] [address] at phone number in regards to confirming the urology follow up care or to make a urology clinic appointment acute kidney injury on Chronic kidney disease, stage 2-3 -Baseline creatinine ~1.2 -admission Creatinine levels 1.72 -after IV fluids which were stopped on 03/16/19, the creatinine is 1.22 on 03/17/19, creatinine is 0.95 on 03/19/19 -acute kidney injury resolved -Continue Stafford catheter -Patient should have renal function and serum magnesium and CBC re-checked by primary medical doctor 1 week after hospital discharge Hypomagnesemia -serum magnesium 1.7 on 03/16/19, IV and oral magnesium supplements given on 03/16/19 -daily oral magnesium oral -serum magnesium 1.7 on 03/19/19 and additional IV magnesium -discharge on magnesium supplements daily Hypertension -Presented with hypotension -Lisinopril resumed on 03/17/19 as blood pressures became hypertensive -continue lisinopril Syncope -was Monitored on telemetry, no acute telemetry events -EEG 03/17/19: This is a normal drowsy EEG. No epileptiform discharges are seen -transfer off telemetry on 03/17/19 History of stroke in the past -Continue aspirin Vascular dementia Schizoaffective disorder -Continue home medications -PT/OT DVT prophylaxis Heparin SQ CODE STATUS Full code Discharge Diagnosis: Severe Sepsis, suspected urinary tract infection, Proctocolitis, Diarrhea, urinary retention, acute kidney injury on Chronic kidney disease stage 2-3 (acute kidney injury resolved), hypertension, Syncope, Hypomagnesemia Total Time Total Time Spent Total Time Spent (In Minutes): 40 minutes Total Time Includes: Examination of the Patient, Discharge Planning, Medication Reconciliation and Communication With Other Providers Discharge Plan Discharge Items Patient Disposition: Transfer Longterm Fac Reason For Visit: SYNCOPE Discharge Diagnosis: Severe Sepsis, suspected urinary tract infection, Proctocolitis, Diarrhea, urinary retention, acute kidney injury on Chronic kidney disease stage 2-3 (acute kidney injury resolved), hypertension, Syncope, Hypomagnesemia Condition on Discharge: Good Activity: Per Instructions section Non-emergency contact: Primary Care Provider Call non-emergency contact if: you have any medication questions Follow-up/Referrals: Manda, [Primary Care Provider] - Diet: Heart Healthy Diet Texture: Pureed (blended smooth) Addtl Attending Provider Instructions: patient was started on empiric Zosyn on admission 03/15/19 when White blood cell counts 29K patient was noted to sit in his diarrhea with stafford on 03/16/19. improvements of WBC while on Zosyn. stop Zosyn on 03/17/19 and switched to ceftriaxone and Flagyl q8 hours on 03/17/19. completion of antibiotics on 05/20/18. WBC is 9.56K -hospital discharge with return to with [facility] and that patient will need follow up with [facility] and primary care doctor. -[facility] service evaluated the patient in the hospital and paln to move up the patient's cystoscopy visit tentatively for Apr 03 at 12:45 noon in [facility] [place] office for evaluation in case of future TURP ([facility] will hold an OR date for the patient on Apr 06, 2019) -[facility] should call [facility] on [address], [place] [address] at phone number in regards to confirming the urology follow up care or to make a urology clinic appointment Patient should have renal function and serum magnesium and CBC re-checked by primary medical doctor 1 week after hospital discharge discharge medication of magnesium 400 mg daily and Finasteride (Proscar) 5 mg daily sent electronically to: [facility] [place] [address] [facility] [place] [id number] which as per pillowcase maker is the pharmacy utilized by [facility] Pending Studies at Discharge: No Stand-Alone Forms: My [facility] Skilled Items Patient informed of condition?: Yes DNR: No Discharge Level of Care: Skilled Communicable Disease: No Discharge Prognosis: Stable Lines: None Urinary Catheter: Yes Medications and DC Order Prescriptions: New finasteride [Proscar] 5 mg Tablet 5 mg PO DAILY 30 Days Qty: 30 RF: 0 Continued lisinopril 10 mg Tablet 10 mg PO DAILY RF: 0 lidocaine HCl 2 % Jelly 10 ml EXT Q6H PRN (Reason: pain at urinary cath site) Qty: 50 RF: 1 tamsulosin 0.4 mg Capsule 0.4 mg PO DAILY RF: 0 Lactobacillus acidoph-L.bulgar [Floranex] 1 million cell Tablet 4 tab PO QID RF: 0 acetaminophen [Tylenol] 325 mg Tablet 650 mg PO Q6H MDD 3G PRN (Reason: Fever Or Pain) RF: 0 bisacodyl [Dulcolax (bisacodyl)] 10 mg Suppository 10 mg IA DAILY PRN (Reason: Constipation) RF: 0 multivitamin Tablet 1 tab PO DAILY RF: 0 aspirin 81 mg Tablet,Delayed Release (Dr/Ec) 81 mg PO DAILY RF: 0 lorazepam 0.5 mg Tablet 0.5 mg PO TID PRN (Reason: Anxiety) RF: 0 fluphenazine decanoate 25 mg/mL Solution 25 mg IM MONTHLY RF: 0 mirtazapine 30 mg Tablet 30 mg PO HS RF: 0 benztropine 1 mg Tablet 1 mg PO BID RF: 0 perphenazine 8 mg Tablet 8 mg PO TID RF: 0 docusate sodium 100 mg Tablet 100 mg PO BID RF: 0 Bing's wort 300 mg Capsule 300 mg PO DAILY RF: 0 Artificial Tears (PF) Dropperette 1 drp OPB BID RF: 0 memantine 10 mg Tablet 10 mg PO BID RF: 0 Calmoseptine 0.44-20.6 % Ointment 1 applic TOPICAL DAILY RF: 0 Discharge Orders: Discharge Order (Routine); Ordered 03/19/19 Ordered By: Rolan Jones Admission Data Admit Date/Time: 03/15/19 18:41 Attending Provider: Rolan Jones Admit Provider: Diaz Moulton Primary Care Provider: Manda Other Providers: [facility], ; Diaz Moulton ; Mason Watts ; Brandon Shah ; Lavelle Buchanan I. ; Shadi Crenshaw ; Rocio Martinez ; Pasha Chinchilla ; Lisandra Pastrana I ; Noel Cantor ; Stephenie Roper
[2019-03-19] MEDS: FINASTERIDE 5 MG TAB PO SCH (10:15)
[2019-03-19 11:01] VITALS: BP 117/76; PULSE 90
== END 2019-03-19 12:55 | DRG 872 ==
LOC: ED 15:32 → SUATTDRO 18:41 → 2S 18:41 → 4W 03-17 12:56
DX: A41.9 Sepsis, unspecified organism; R33.9 Retention of urine, unspecified; N39.0 Urinary tract infection, site not specified; N18.3 Chronic kidney disease, stage 3 (moderate); Z88.7 Allergy status to serum and vaccine; Z88.8 Allergy status to other drugs, medicaments and biological substances; N17.9 Acute kidney failure, unspecified; F25.9 Schizoaffective disorder, unspecified; F01.50 Vascular dementia, unspecified severity, without behavioral disturbance, psychotic disturbance, mood disturbance, and anxiety; Z87.891 Personal history of nicotine dependence; R15.9 Full incontinence of feces; I12.9 Hypertensive chronic kidney disease with stage 1 through stage 4 chronic kidney disease, or unspecified chronic kidney disease; E83.42 Hypomagnesemia; Z86.73 Personal history of transient ischemic attack (TIA), and cerebral infarction without residual deficits; K52.9 Noninfective gastroenteritis and colitis, unspecified

== ENCOUNTER 2019-06-05 10:40 | Inpatient (IN) ==
[2019-06-05] MEDS ORDERED: CEFEPIME 2,000 MG/20 ML VIAL IV STA (10:55)
[2019-06-05] MEDS ORDERED: SODIUM CHLORIDE 0.9% 1000ML 1,000 ML IV ONE (10:57)
[2019-06-05] MEDS ORDERED: LACTATED RINGER'S 1,500 ML IV ONE (10:57)
[2019-06-05 11:46] LABS: Basophils # (auto) 0.04 K/uL (0-0.2); Basophils % (auto) 0.4 %; Eosinophils # (auto) 0.09 K/uL (0-0.5); Eosinophils % (auto) 0.9 %; Hematocrit (blood only) 30.3 % (42-52); Immature Granulocytes # (auto) 0.02 K/uL (0.00-0.02); Immature Granulocytes % (auto) 0.2 %; Lymphocytes # (auto) 1.14 K/uL (1.2-3.4); Lymphocytes % (auto) 11.9 %; Mean Corpuscular Hemoglobin 28.6 pg (25-34); Mean Corpuscular Volume 86.6 fL (80-100); Mean Platelet Volume 9.6 fL (7.4-10.4); Monocytes # (auto) 0.62 K/uL (0.11-0.59); Monocytes % (auto) 6.5 %; Neutrophils # (auto) 7.67 K/uL (1.4-6.5); Neutrophils % (auto) 80.1 %; Platelet Count 217 K/uL (130-400); RDW Coefficient of Variation 15.9 % (11.5-14.5); RDW Standard Deviation 50.6 fL (36.4-46.3); White Blood Count 9.58 K/uL (4.8-10.8)
--- NOTE | 2019-06-05 11:56 | XRay Report ---
XR chest 1V portable HISTORY: 79 years-old Male SEPSIS acute sepsis COMPARISON: Chest radiograph 05/07/2019 TECHNIQUE: Portable AP view of the chest FINDINGS: Cardiac silhouette is enlarged, unchanged. Calcified plaque of the thoracic aortic arch. Emphysema wi th chronic interstitial coarsening. Mild bibasilar densities. No pneumothorax, large pleural effusion or overt pulmonary edema. Degenerative changes of the shoulders and spine. IMPRESSION: 1. Minimal left lung base opacities suggest atelectasis or pneumonitis. 2. Emphysema with chronic interstitial coarsening. 3. Mild cardiomegaly. ACT 112: Negative or not required by law. The above report was generated using voice recognition software. It may contain grammatical, syntax o r spelling errors. Electronically signed by: Ezekiel Horner M.D. 06/05/2019 11:54 AM
[2019-06-05 11:59] LABS: INR 1.1 (0.9-1.1); Partial Thromboplastin Ratio 1.2; Partial Thromboplastin Time 31.8 Seconds (21.0-31.0); Prothrombin Time 11.6 Seconds (9.0-12.0)
[2019-06-05 12:05] LABS: Alanine Aminotransferase 22 U/L (12-78); Albumin Level 2.6 gm/dl (3.4-5.0); Aspartate Aminotransferase 16 U/L (15-37); BUN Creatinine Ratio 17.3 (10-20); Blood Urea Nitrogen 21 mg/dl (7-18); Calcium 8.8 mg/dl (8.5-10.1); Carbon Dioxide 30 mmol/L (21-32); Chloride 109 mmol/L (98-107); Creatinine Clr Calc Pharmacy 47.1 ml/min; Est GFR (African American) 64.3; Est GFR (Non-African American) 55.5; Glucose 78 mg/dl (70-99); Magnesium 2.1 mg/dl (1.8-2.4); Potassium 4.5 mmol/L (3.5-5.1); Sodium 142 mmol/L (136-145)
[2019-06-05 12:11] LABS: Albumin Globulin Ratio 0.6 (0.9-2); Alkaline Phosphatase 91 U/L (45-117); Bilirubin,Total 0.2 mg/dl (0.2-1); Globulin 4.2 gm/dl (2.5-4.0); Total Protein 6.8 gm/dl (6.4-8.2); Troponin I < 0.015 ng/ml (0-0.045)
[2019-06-05 12:17] LABS: Appearance Urine Clear (Clear); Bacteria Urine Automated Negative (Negative); Bilirubin Urine Negative (Negative); Blood Urine Negative (Negative); Color Urine Yellow; Epithelial Cell Urine Auto >30 /lpf (0-5); Glucose Urine UA Negative (Negative); Ketones Urine Negative (Negative); Leukocyte Esterase Urine 2+ (Negative); Nitrite Urine Negative (Negative); Protein Urine Negative (Negative); RBC Urine Automated 0-4 /hpf (0-4); Specific Gravity Urine 1.015 (1.000-1.030); Urobilinogen Urine Negative (Negative); pH Urine 5.5 (4.5-7.5)
[2019-06-05] MEDS ORDERED: IOVERSOL 100ml IV PRN (12:35)
--- NOTE | 2019-06-05 12:44 | CT Scan Report ---
CT head/brain wo con CLINICAL HISTORY: 79 years-old Male with fall?, weakness. Acute head injury status post fall with ac [place] weakness TECHNIQUE: Multiple axial CT images of the head were obtained without contrast. A dose lowering tech nique was utilized adhering to the principles of ALARA. COMPARISON: Head CT 02/19/2019 FINDINGS: No acute intracranial hemorrhage, midline shift, intracranial mass, hydrocephalus, territorial ischem ia or abnormal extra-axial collection. Age-related involutional changes. Patchy white matter hypodens ities suggest chronic microvascular ischemic disease. Cerebral vascular calcifications are noted. Darek dy is limited secondary to positioning. The calvarium is intact. Prior bilateral lens replacement. The paranasal sinuses, mastoid air cells, and middle ear cavities are clear. IMPRESSION: No acute intracranial abnormality or calvarial fracture. ACT 112: Negative or not required by law. The above report was generated using voice recognition software. It may contain grammatical, syntax o r spelling errors. Electronically signed by: Ezekiel Horner M.D. 06/05/2019 12:43 PM
[2019-06-05 12:46] LABS: Influenza A virus by PCR Neg for Influ A (Neg); Influenza B virus by PCR Neg for Influ B (Neg)
--- NOTE | 2019-06-05 12:53 | CT Scan Report ---
CT abd pelvis IV con only CLINICAL HISTORY: 79 years-old Male presenting with fall, tailbone pain. TECHNIQUE: Multidetector CT of the abdomen and pelvis was performed after the administration of intra venous contrast. IV contrast: 95 mL of Optiray 320. One or more dose lowering techniques were used co nsistent with the principles of ALARA (as low as reasonably achievable), including automatic exposure control, mA or kV adjustment to individual patient size, and/or use of iterative reconstruction. COMPARISON: 03/15/2019. CT DOSE (mGy.cm): The estimated cumulative dose is 1006.24 mGy.cm. FINDINGS: Technical Data Analyst topogram: The patient is edentulous. Stool burden suggests constipation. Lung bases: Multichamber enlargement of the heart. Coronary artery calcification. No pericardial or p leural effusion. Bronchial wall thickening. Extensive nodular peribronchovascular infiltrates most pr obably in the left lower lobe. These are new from prior. Dependent atelectasis is also evident. Liver: Normal morphology. No liver lesion. Patent hepatic vasculature. Biliary: No intrahepatic or extrahepatic biliary ductal dilatation. Normal gallbladder. Pancreas: Normal. Spleen: Normal. Adrenal glands: 2.2 cm nodule in the left adrenal gland unchanged from prior and previously consisten t with a benign adenoma. Right adrenal gland normal. Kidneys and ureters: Small cysts noted in the right kidney. No nephrolithiasis or hydronephrosis. Jairo ovascular calcification noted. Bladder: Guy catheter decompresses the urinary bladder. Pelvic organs: Prostate and seminal vesicles normal. Bowel: Moderate stool burden mildly distends the rectum. There is also a moderate stool burden more p roximally. There is narrowing of the junction of the descending and sigmoid colon (series 5 image 302 ). No abnormal bowel wall thickening or convincing evidence of volvulus or internal hernia. No bowel obstruction. The appendix is normal. Peritoneal cavity: No free fluid or intraperitoneal gas. Lymph nodes: No gross lymphadenopathy allowing for noncontrast technique. Vasculature: Extensive atherosclerosis of the abdominal aorta, which demonstrates infrarenal aneurysm al dilatation measuring up to 2.9 cm as on prior exam. Aneurysmal dilatation of the left common iliac artery measuring 2.1 cm. Minimal ectasia of the right common iliac artery. Venous structures not yet opacified due to the phase of contrast. Abdominal wall: Body wall edema. No superficial hematoma. Musculoskeletal: Degenerative changes of the spine and sacroiliac joints. The sacrum is intact. Old a nterolateral left rib fractures noted. The coccyx is grossly intact. No displaced fracture. No cortic al deformity. IMPRESSION: 1. No convincing evidence of acute osseous injury. Specifically, the coccyx is intact. 2. No acute intra-abdominal injury. 3. Stable chronic findings. 4. Constipation. 5. 2.9 cm infrarenal abdominal aortic aneurysm as on prior exam. 6. Interval development of nodular peribronchovascular infiltrates in the lung bases primarily in th e left lower lobe concerning for pneumonia or aspiration. ACT 112: Negative or not required by law. Electronically signed by: Yifan Lind M.D. 06/05/2019 12:52 PM
[2019-06-05] MEDS ORDERED: DOXYCYCLINE HYCLATE 100 MG CAP PO STA (13:24)
--- NOTE | 2019-06-05 14:20 | History & Physical Report ---
Date of Service June 05, 2019 Assessment & Plan (1) Weakness: Pt is 79 y/o M with PMH dementia, schizoaffective disorder, CVA, HTN, chronic urinary retention with chronic Guy, CKD III presented to ER from [facility] with c/o weakness x several days. Reported fall yesterday CT HEAD: No acute intracranial abnormality or calvarial fracture. CT ABD/PELVIS: 1. No convincing evidence of acute osseous injury. Specifically, the coccyx is intact. 2. No acute intra-abdominal injury. 3. Stable chronic findings. 4. Constipation. 5. 2.9 cm infrarenal abdominal aortic aneurysm as on prior exam. 6. Interval development of nodular peribronchovascular infiltrates in the lung bases primarily in the left lower lobe concerning for pneumonia or aspiration. CXR: IMPRESSION: 1. Minimal left lung base opacities suggest atelectasis or pneumonitis. 2. Emphysema with chronic interstitial coarsening. 3. Mild cardiomegaly. DDX: secondary to underlying infection -Fall precautions -PT OT eval -Treatment of infection as below (2) Left lower lobe pneumonia: In ER P: 62, R: 18, BP: 86/46 up to 106/56 after 1500ml LR and 1000ml NS WBC: 9.5, Normal lactate, negative influenza CXR: Minimal left lung base opacities suggest atelectasis or pneumonitis. Infiltrates primarily LLL noted CT ABD/PELVIS -In ER given cefepime, doxycycline -Blood cultures pending -IV fluids -Cefepime - renal dosed, doxycycline -CBC, BMP in a.m. (3) Possible urinary tract infection: (4) Chronic indwelling Guy catheter: History of chronic urinary retention with chronic Guy catheter UA: 2+ leuk esterase, 10-30 WBC, > 30 epithelial -Urine culture pending -Cefepime -Had Guy catheter changed in ER -Continue finasteride, tamsulosin (5) HTN (hypertension): Initially hypotensive in ER improved with IV fluids -Hold amlodipine, lisinopril currently (6) CKD (chronic kidney disease), stage III: BUN: 21, Cr: 1.23, GFR: 55. Baseline Cr ~1.1 -Monitor renal functions -Avoid nephrotoxic agents when possible (7) H/O: CVA (cerebrovascular accident): -Continue aspirin (8) Dementia: -Continue memantine (9) Schizoaffective disorder: -Continue benztropine, mirtazapine, perphenazine DVT Prophylaxis -Lovenox SQ Admit med tele Full Code as per discussion with pt and pt's POLST form Follows with Dr Chambers at [facility] for routine care Pt was seen and care coordinated with Dr Joseph. See addendum (10) Leg edema: -Hold lasix currently History of Present Illness Chief Complaint: Weakness Primary Care Provider: [facility] Pt is 79 y/o M with PMH dementia, schizoaffective disorder, CVA, HTN, chronic urinary retention with chronic Guy, CKD III presented to ER from [facility] with complaint of weakness. Limited history obtained from patient, remaining history obtained from staff and medical records. It is reported patient with increased weakness over the past several days. Patient usually ambulates with a walker however has been increasingly weak and unable to ambulate appropriately with walker. Reported patient had a fall yesterday and hit head and buttocks. No report of any LOC. Patient complaining of pain to his tailbone. Patient with history sepsis secondary to Pseudomonas in 02/2019. Patient denies cough, shortness of breath, chest pain, headache, N/V/D/C, dizziness, neck pain, back pain, palpitations, sore throat, choking, otalgia, rhinorrhea, abdominal pain, paresthesias, rashes, hematuria. Allergies Allergy/AdvReac Type Severity Reaction Status Date / Time olanzapine Allergy Mild "IT DOES Verified 06/05/19 13:35 NOT WORK" risperidone Allergy Unknown UNKNOWN Verified 06/05/19 13:35 Tricyclic Antidepressants Allergy Unknown . Uncoded 06/05/19 13:35 Flu Virus Vaccine AdvReac Unknown CAUSES Uncoded 06/05/19 13:35 PAIN AT INJECTION SITE Home Medications Home Medications Medication Instructions Recorded Confirmed Type Artificial Tears (PF) 1 drp OPB BID 11/22/18 06/05/19 History Calmoseptine 1 applic TOPICAL DAILY 11/22/18 06/05/19 History Bing's wort 300 mg PO QAM@0800 11/22/18 06/05/19 History aspirin 81 mg PO QAM@0800 11/22/18 06/05/19 History benztropine 1 mg PO BID 11/22/18 06/05/19 History docusate sodium 100 mg PO BID 11/22/18 06/05/19 History fluphenazine decanoate 25 mg IM MONTHLY 11/22/18 06/05/19 History lorazepam 0.5 mg PO TID PRN 11/22/18 06/05/19 History memantine 10 mg PO BID 11/22/18 06/05/19 History mirtazapine 30 mg PO HS@2000 11/22/18 06/05/19 History lidocaine HCl 10 ml EXT Q6H PRN #50 ml 02/24/19 06/05/19 Rx acetaminophen [Tylenol] 650 mg PO Q4 PRN MDD 3G 03/15/19 06/05/19 History tamsulosin 0.4 mg PO QAM@0800 03/15/19 06/05/19 History amlodipine 5 mg PO QAM@0800 05/07/19 06/05/19 History finasteride 5 mg PO QAM@0800 05/07/19 06/05/19 History fluphenazine HCl 2.5 mg PO Q6H PRN 05/07/19 06/05/19 History multivitamin with iron 1 tab PO QAM@0800 05/07/19 06/05/19 History amlodipine 2.5 mg PO QAM@0800 06/05/19 06/05/19 History furosemide 20 mg PO QAM@0800 06/05/19 06/05/19 History lisinopril 5 mg PO QAM@0800 06/05/19 06/05/19 History perphenazine 6 mg PO TID 06/05/19 06/05/19 History Past Med/Surg History Medical History Anemia Anxiety BPH loc w urin obs/LUTS Chronic kidney disease stage 3 Complicated UTI (urinary tract infection) Dementia (Chronic) Dysphagia (Chronic) following CVA H/O: CVA (cerebrovascular accident) (Chronic) HTN (hypertension) (Chronic) Indwelling Guy catheter present Muscle weakness (generalized) Pulmonary nodule Schizoaffective disorder (Chronic) Sepsis due to Pseudomonas March 2019 Urinary retention Urinary retention due to benign prostatic hyperplasia (Chronic) Surgical History Hx of cataract surgery (Chronic) S/P tonsillectomy (Chronic) Family History Other Hypertension Social History Preferred Language: Ecuadorean Communication Ability: Effective Supervisor Vendor Quality Required: No Beliefs That Will Affect Care: None marital status: Single Current Living Situation: [facility] Current Living Situation Comment: [facility] Feels Safe at Home: Yes Smoking Status: Former smoker Second Hand Exposure: No ; Hx Alcohol Use: No Hx Substance Use: No Review of Systems Review of Systems: All systems reviewed & are unremarkable except as noted in HPI & below Physical Exam Physical Exam: General: no distress, WDWN Head: normocephalic, atraumatic Eyes: PERRL, EOM's intact, conjunctiva non-injected, anicteric ENT: normal inspection external ears, nose, mucous membranes mildly dry; no dentition; right upper lip with large swollen purple coloration (pt reports chronic hemangioma) Neck: supple, trachea midline, non-tender, ROM intact Lungs: clear, no respiratory distress, mildly diminished bases, no rhonchi, rales or wheezing noted CV: RRR, no murmur, trace pretibial edema Abd: normal BS, soft, non-tender Back: no spinous process tenderness to palpation; Buttocks +tenderness to palpation over coccyx Ext: no cyanosis, no calf tenderness Neuro: Alert, oriented to person only, no focal deficits noted, Skin: warm, dry Results & Data Vital Signs (Past 12 Hours) Vital Signs Pulse Pulse Resp BP BP Pulse Ox 06/05/19 13:33 68 20 116/68 94 06/05/19 12:01 60 20 106/56 L 100 06/05/19 11:00 62 59 L 20 95/50 L 99 06/05/19 10:54 59 L 20 87/50 L 99 06/05/19 10:41 62 18 86/46 L 100 Laboratory Results Short CBC 06/05/19 Range/Units 11:31 WBC 9.58 (4.8-10.8) K/uL Hgb 10.0 L (14.0-18.0) g/dL Hct 30.3 L (42-52) % Plt Count 217 (130-400) K/uL BMP 06/05/19 11:31 Sodium 142 Potassium 4.5 Chloride 109 H Carbon Dioxide 30 BUN 21 H Creatinine 1.23 Glucose 78 Calcium 8.8 Cardiac Enzymes 06/05/19 Range/Units 11:31 Troponin I < 0.015 (0-0.045) ng/ml Liver Function 06/05/19 Range/Units 11:31 Total Bilirubin 0.2 (0.2-1) mg/dl AST 16 (15-37) U/L ALT 22 (12-78) U/L Alkaline Phosphatase 91 (45-117) U/L Albumin 2.6 L (3.4-5.0) gm/dl Urine 06/05/19 Range/Units 12:00 Urine Color Yellow Urine Appearance Clear (Clear) Urine pH 5.5 (4.5-7.5) Ur Specific [place] 1.015 (1.000-1.030) Urine Protein Negative (Negative) Urine Glucose (UA) Negative (Negative) Diagnostic Findings CT HEAD: IMPRESSION: No acute intracranial abnormality or calvarial fracture. CT ABD/PELVIS: IMPRESSION: 1. No convincing evidence of acute osseous injury. Specifically, the coccyx is intact. 2. No acute intra-abdominal injury. 3. Stable chronic findings. 4. Constipation. 5. 2.9 cm infrarenal abdominal aortic aneurysm as on prior exam. 6. Interval development of nodular peribronchovascular infiltrates in the lung bases primarily in the left lower lobe concerning for pneumonia or aspiration. CXR: IMPRESSION: 1. Minimal left lung base opacities suggest atelectasis or pneumonitis. 2. Emphysema with chronic interstitial coarsening. 3. Mild cardiomegaly. Code Status & VTE Plan VTE Prophylaxis Plan VTE Prophylaxis will be ordered: Yes Supervising Physician Co-Signing Physician Notes Attending addendum The patient was seen and examined in emergency room He was sent from from [facility] with weakness tiredness and possible urinary tract infection He complains today of weakness, no definite fever and/or chills, denies any acute symptoms On examination No apparent distress at rest lying in bed comfortably Hemodynamically stable without any fever and tachycardia Chest-decreased breath sounds all over with minimal left basilar crackles Heart-S1-S2, rate Abdomen-benign, soft, mildly tender right upper quadrant and hypogastrium, bowel sounds present Extremities-trace edema bilaterally 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 Generally weak. He has dementia without any acute confusion Admission labs, imaging studies and EKG reviewed Has left lower lobe pneumonia and possible UTI Has been started with intravenous cefepime and doxy Agree with assessment and plan as outlined above by SAMMY Pace Dr (1) Schizoaffective disorder Schizoaffective disorder type: unspecified Qualified Code(s): F25.9 - Schizoaffective disorder, unspecified (2) Left lower lobe pneumonia Pneumonia type: due to unspecified organism Qualified Code(s): J18.9 - Pneumonia, unspecified organism
[2019-06-05] MEDS ORDERED: ACETAMINOPHEN 325 MG TAB PO PRN (16:44)
[2019-06-05] MEDS ORDERED: LORazepam 0.5 MG TAB PO PRN (16:44)
[2019-06-05] MEDS ORDERED: POLYETHYLENE (MIRALAX) 17 GM PACK PO PRN (16:44)
[2019-06-05] MEDS: SODIUM CHLORIDE 0.9% 1000ML 1,000 ML IV SCH (16:57)
--- NOTE | 2019-06-05 17:04 | Emergency Department Note ---
Entered by Mignon Flores acting as a scribe for History of Present Illness General Chief complaint: Weakness Time Seen by Provider: 06/05/19 10:44 Source: patient and RN notes reviewed History of Present Illness Onset (ago): week(s) 1 Location: head Pain Consistency: + other (worsening) Quality: + other (weakness) Associated symptoms: + headaches, + loss of appetite, + shortness of breath (slight) and + other (+lower abdominal pain; +dysuria; -neck pain) The patient is a 79 year old male, with past medical history of BPH, CVA, and UTI, who presents to the Emergency Room with complaints of worsening weakness over the past week, according to the RN. The RN reports the patient is from [facility], and she states the patient can typically ambulate with a walker. However, she states the patient has had less ability to walk with his walker over the past week. She states the patient also reports of a decreased appetite. The patient notes he has lower abdominal pain, a headache upon arrival to the ED, slight shortness of breath, and pain with urination. He states he fell yesterday, and he notes he hit his head and tailbone. The patient denies experiencing neck pain. Home Medications Home Medications Medication Instructions Recorded Confirmed Type Artificial Tears (PF) 1 drp OPB BID 11/22/18 06/05/19 History Calmoseptine 1 applic TOPICAL DAILY 11/22/18 06/05/19 History [place]'s wort 300 mg PO QAM@0800 11/22/18 06/05/19 History aspirin 81 mg PO QAM@0811/22/18 06/05/19 History benztropine 1 mg PO BID 11/22/18 06/05/19 History docusate sodium 100 mg PO BID 11/22/18 06/05/19 History fluphenazine decanoate 25 mg IM MONTHLY 11/22/18 06/05/19 History lorazepam 0.5 mg PO TID PRN 11/22/18 06/05/19 History memantine 10 mg PO BID 11/22/18 06/05/19 History mirtazapine 30 mg PO HS@2000 11/22/18 06/05/19 History lidocaine HCl 10 ml EXT Q6H PRN #50 ml 02/24/19 06/05/19 Rx acetaminophen [Tylenol] 650 mg PO Q4 PRN MDD 3G 03/15/19 06/05/19 History tamsulosin 0.4 mg PO QAM@0800 03/15/19 06/05/19 History amlodipine 5 mg PO QAM@0800 05/07/19 06/05/19 History finasteride 5 mg PO QAM@0800 05/07/19 06/05/19 History fluphenazine HCl 2.5 mg PO Q6H PRN 05/07/19 06/05/19 History multivitamin with iron 1 tab PO QAM@0800 05/07/19 06/05/19 History amlodipine 2.5 mg PO QAM@0800 06/05/19 06/05/19 History furosemide 20 mg PO QAM@0800 06/05/19 06/05/19 History lisinopril 5 mg PO QAM@0800 06/05/19 06/05/19 History perphenazine 6 mg PO TID 06/05/19 06/05/19 History Allergies Allergy/AdvReac Type Severity Reaction Status Date / Time olanzapine Allergy Mild "IT DOES Verified 06/05/19 13:35 NOT WORK" risperidone Allergy Unknown UNKNOWN Verified 06/05/19 13:35 Influenza Virus Vaccines AdvReac PAIN AT Verified 06/05/19 16:49 INJECTION SITE Tricyclic Antidepressants Allergy Unknown . Uncoded 06/05/19 13:35 Past Med/Surg History Medical History Anemia Anxiety BPH loc w urin obs/LUTS Chronic kidney disease stage 3 Complicated UTI (urinary tract infection) Dementia (Chronic) Dysphagia (Chronic) following CVA H/O: CVA (cerebrovascular accident) (Chronic) HTN (hypertension) (Chronic) Indwelling Guy catheter present Muscle weakness (generalized) Pulmonary nodule Schizoaffective disorder (Chronic) Sepsis due to Pseudomonas March 2019 Urinary retention Urinary retention due to benign prostatic hyperplasia (Chronic) Surgical History Hx of cataract surgery (Chronic) S/P tonsillectomy (Chronic) Family History Other Hypertension Social History Preferred Language: Albanian Communication Ability: Effective Manager 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 and A total of 10 systems reviewed and were otherwise negative Physical Exam Vital Signs Vital Signs - 24 hr 06/05/19 10:41 06/05/19 10:54 06/05/19 11:00 Temperature Source Oral Pulse Rate 62 62 Pulse Rate [Right Finger] 59 L 59 L Pulse Rhythm [Right Finger] Pulse Strength [Right Finger] Respiratory Rate 18 20 20 Respiratory Effort / Characteristics Non-Labored Non-Labored Respiratory Depth Normal Normal Blood Pressure 86/46 L Blood Pressure [Right Arm] 87/50 L 95/50 L Blood Pressure Mean 59 Blood Pressure Mean [Right Arm] 62 65 Pulse Oximetry 100 99 99 Oxygen Delivery Method Room Air Room Air Room Air Sepsis Recent Fever Within 48 Hours No Sepsis Action Taken by Nursing No Action Required 06/05/19 12:01 06/05/19 13:33 Temperature Source Pulse Rate Pulse Rate [Right Finger] 60 68 Pulse Rhythm [Right Finger] Regular Pulse Strength [Right Finger] Normal Respiratory Rate 20 20 Respiratory Effort / Characteristics Non-Labored Non-Labored Spontaneous Respiratory Depth Normal Normal Blood Pressure Blood Pressure [Right Arm] 106/56 L 116/68 Blood Pressure Mean Blood Pressure Mean [Right Arm] 72 84 Pulse Oximetry 100 94 Oxygen Delivery Method Room Air Room Air Sepsis Recent Fever Within 48 Hours Sepsis Action Taken by Nursing GENERAL: Awake, fatigued-appearing, in no distress in bed HENT: Right upper lip mass noted. Atraumatic. Oropharynx unremarkable. EYES: Normal conjunctiva. Sclera non-icteric. NECK: Supple. No nuchal rigidity. RESPIRATORY: Clear to auscultation. No wheezes. Normal respiratory effort. CARDIAC: Bradycardic rate. Normal rhythm. Extremities warm and well perfused. GI: Soft, non-distended. No tenderness to palpation. No rebound or guarding. No masses. Chronic indwelling Guy catheter noted. RECTAL: Deferred. MUSCULOSKELETAL: Atraumatic. Chest examination reveals no tenderness. LOWER EXTREMITIES: Calves are equal size bilaterally and non-tender. No edema NEURO: No sensory or motor deficits noted. No facial droop. Fatigued but alert to verbal stimuli SKIN: Warm and dry. No jaundice noted. Course Course 1050: Past medical records reviewed. The patient was evaluated in room B12B. A complete history and physical exam was performed. 1310: I updated the patient on his case. 1323: I reviewed the patient's case with Stephanie Alcazar. Dr. Nora Alcazar will evaluate the patient for further management. Consultations Consultation #1: I reviewed the patient's case with Stephanie Alcazar. Dr. Nora Alcazar will evaluate the patient for further management. Time: 13:23 Administered Medications Sodium Chloride (Nss 1000ml) 1,000 mls @ 100 mls/hr IV .Q10H SHERIE Stop: 06/06/19 12:43 Last Admin: 06/05/19 16:57 Dose: 100 mls/hr Documented by: [id number] Discontinued Medications Doxycycline Hyclate (Vibramycin) 100 mg PO NOW STA Stop: 06/05/19 13:25 Last Admin: 06/05/19 13:31 Dose: 100 mg Documented by: [id number] Cefepime HCl (Maxipime) 2,000 mg in 20 mls @ 5 mls/min IV NOW STA; Protocol Stop: 06/05/19 10:58 Last Admin: 06/05/19 12:09 Dose: 5 mls/min Documented by: [id number] Sodium Chloride (Nss 1000ml) 1,000 mls @ 999 mls/hr IV .Q1H1M ONE Stop: 06/05/19 11:57 Last Infusion: 06/05/19 13:33 Dose: 0 mls/hr Documented by: [id number] Admin: 06/05/19 12:09 Dose: 999 mls/hr Documented by: [id number] Lactated Ringer's (Lr) 1,500 mls @ 999 mls/hr IV .Q1H31M ONE Stop: 06/05/19 12:27 Last Infusion: 06/05/19 13:00 Dose: 0 mls/hr Documented by: [id number] Admin: 06/05/19 12:08 Dose: 999 mls/hr Documented by: [id number] Ioversol (Optiray 320 100ml) 95 ml IV ONCE PRN PRN Reason: Interaction Checking Stop: 06/09/19 12:34 Last Admin: 06/05/19 12:35 Dose: 95 ml Documented by: [id number] Critical Care Time Critical Care Time: Yes Total Critical Care Time: 31 I have personally spent 31 minutes of critical care time in the direct management of this patient for pneumonia, hypotension, and UTI. This includes bedside care, interpretation of diagnostic studies, and testing, discussion with consultants, patient, and family members, and other required patient management activities. These 31 minutes is in excess of all separately billable procedures. Medical Decision Making Differential Diagnosis Differential diagnosis: Etiologies such as metabolic, infection, hypo/hyperglycemia, electrolyte abnormalities, cardiac sources, intracerebral event, toxicologic, neurologic, as well as others were entertained. Medical Records Attestation: I reviewed the patient's medical records. Home Medications Current Medication List: was personally reviewed by me Laboratory Data Attestation: I reviewed the patient's lab results. Result diagrams: 06/05/19 11:31 06/05/19 11:31 Lab Results 06/05/19 06/05/19 06/05/19 Range/Units 11:31 11:31 11:31 WBC 9.58 (4.8-10.8) K/uL RBC 3.50 L (4.7-6.1) M/uL Hgb 10.0 L (14.0-18.0) g/dL Hct 30.3 L (42-52) % MCV 86.6 (80-100) fL MCH 28.6 (25-34) pg MCHC 33.0 (32-36) g/dL RDW Std Deviation 50.6 H (36.4-46.3) fL RDW Coeff of So 15.9 H (11.5-14.5) % Plt Count 217 (130-400) K/uL MPV 9.6 (7.4-10.4) fL Immature Gran % (Auto) 0.2 % Neut % (Auto) 80.1 % Lymph % (Auto) 11.9 % [place] % (Auto) 6.5 % Eos % (Auto) 0.9 % Baso % (Auto) 0.4 % Immature Gran # (Auto) 0.02 (0.00-0.02) K/uL Neut # (Auto) 7.67 H (1.4-6.5) K/uL Lymph # (Auto) 1.14 L (1.2-3.4) K/uL [place] # (Auto) 0.62 H (0.11-0.59) K/uL Eos # (Auto) 0.09 (0-0.5) K/uL Baso # (Auto) 0.04 (0-0.2) K/uL PT 11.6 (9.0-12.0) Seconds INR 1.1 (0.9-1.1) APTT 31.8 H (21.0-31.0) Seconds PTT Ratio 1.2 Sodium 142 (136-145) mmol/L Potassium 4.5 (3.5-5.1) mmol/L Chloride 109 H (98-107) mmol/L Carbon Dioxide 30 (21-32) mmol/L Anion Gap 3.0 (3-11) BUN 21 H (7-18) mg/dl Creatinine 1.23 (0.6-1.4) mg/dl Est Cr Clr Drug Dosing 47.1 ml/min Est GFR ( Amer) 64.3 Est GFR (Non-Af Amer) 55.5 BUN/Creatinine Ratio 17.3 (10-20) Glucose 78 (70-99) mg/dl Lactate (0.4-2.0) mmol/L Calcium 8.8 (8.5-10.1) mg/dl Magnesium 2.1 (1.8-2.4) mg/dl Total Bilirubin 0.2 (0.2-1) mg/dl AST 16 (15-37) U/L ALT 22 (12-78) U/L Alkaline Phosphatase 91 (45-117) U/L Troponin I < 0.015 (0-0.045) ng/ml Total Protein 6.8 (6.4-8.2) gm/dl Albumin 2.6 L (3.4-5.0) gm/dl Globulin 4.2 H (2.5-4.0) gm/dl Albumin/Globulin Ratio 0.6 L (0.9-2) Urine Color Urine Appearance (Clear) Urine pH (4.5-7.5) Ur Specific [place] (1.000-1.030) Urine Protein (Negative) Urine Glucose (UA) (Negative) Urine Ketones (Negative) Urine Blood (Negative) Urine Nitrite (Negative) Urine Bilirubin (Negative) Urine Urobilinogen (Negative) Ur Leukocyte Esterase (Negative) Urine WBC (Auto) (0-5) /hpf Urine RBC (Auto) (0-4) /hpf U Hyaline Cast (Auto) (0-5) /lpf U Epithel Cells (Auto) (0-5) /lpf Urine Bacteria (Auto) (Negative) Ur Renal Epithelial Cell Influenza Type A (PCR) (Neg) Influenza Type B (PCR) (Neg) 06/05/19 06/05/19 06/05/19 Range/Units 11:31 12:00 12:00 WBC (4.8-10.8) K/uL RBC (4.7-6.1) M/uL Hgb (14.0-18.0) g/dL Hct (42-52) % MCV (80-100) fL MCH (25-34) pg MCHC (32-36) g/dL RDW Std Deviation (36.4-46.3) fL RDW Coeff of So (11.5-14.5) % Plt Count (130-400) K/uL MPV (7.4-10.4) fL Immature Gran % (Auto) % Neut % (Auto) % Lymph % (Auto) % [place] % (Auto) % Eos % (Auto) % Baso % (Auto) % Immature Gran # (Auto) (0.00-0.02) K/uL Neut # (Auto) (1.4-6.5) K/uL Lymph # (Auto) (1.2-3.4) K/uL [place] # (Auto) (0.11-0.59) K/uL Eos # (Auto) (0-0.5) K/uL Baso # (Auto) (0-0.2) K/uL PT (9.0-12.0) Seconds INR (0.9-1.1) APTT (21.0-31.0) Seconds PTT Ratio Sodium (136-145) mmol/L Potassium (3.5-5.1) mmol/L Chloride (98-107) mmol/L Carbon Dioxide (21-32) mmol/L Anion Gap (3-11) BUN (7-18) mg/dl Creatinine (0.6-1.4) mg/dl Est Cr Clr Drug Dosing ml/min Est GFR ( Amer) Est GFR (Non-Af Amer) BUN/Creatinine Ratio (10-20) Glucose (70-99) mg/dl Lactate 1.5 (0.4-2.0) mmol/L Calcium (8.5-10.1) mg/dl Magnesium (1.8-2.4) mg/dl Total Bilirubin (0.2-1) mg/dl AST (15-37) U/L ALT (12-78) U/L Alkaline Phosphatase (45-117) U/L Troponin I (0-0.045) ng/ml Total Protein (6.4-8.2) gm/dl Albumin (3.4-5.0) gm/dl Globulin (2.5-4.0) gm/dl Albumin/Globulin Ratio (0.9-2) Urine Color Yellow Urine Appearance Clear (Clear) Urine pH 5.5 (4.5-7.5) Ur Specific [place] 1.015 (1.000-1.030) Urine Protein Negative (Negative) Urine Glucose (UA) Negative (Negative) Urine Ketones Negative (Negative) Urine Blood Negative (Negative) Urine Nitrite Negative (Negative) Urine Bilirubin Negative (Negative) Urine Urobilinogen Negative (Negative) Ur Leukocyte Esterase 2+ H (Negative) Urine WBC (Auto) 10-30 H (0-5) /hpf Urine RBC (Auto) 0-4 (0-4) /hpf U Hyaline Cast (Auto) 5-10 H (0-5) /lpf U Epithel Cells (Auto) >30 H (0-5) /lpf Urine Bacteria (Auto) Negative (Negative) Ur Renal Epithelial Cell Not Reportable Influenza Type A (PCR) Neg for Influ A (Neg) Influenza Type B (PCR) Neg for Influ B (Neg) Imaging Data Radiologist's Impression: Radiology results as stated below per my review and the radiologist's interpretation: XR chest 1V portable HISTORY: 79 years-old Male SEPSIS acute sepsis COMPARISON: Chest radiograph 05/07/2019 TECHNIQUE: Portable AP view of the chest FINDINGS: Cardiac silhouette is enlarged, unchanged. Calcified plaque of the thoracic aortic arch. Emphysema with chronic interstitial coarsening. Mild bibasilar densities. No pneumothorax, large pleural effusion or overt pulmonary edema. Degenerative changes of the shoulders and spine. IMPRESSION: 1. Minimal left lung base opacities suggest atelectasis or pneumonitis. 2. Emphysema with chronic interstitial coarsening. 3. Mild cardiomegaly. ACT 112: Negative or not required by law. The above report was generated using voice recognition software. It may contain grammatical, syntax or spelling errors. Electronically signed by: Ezekiel Horner M.D. 06/05/2019 11:[address] abd pelvis IV con only CLINICAL HISTORY: 79 years-old Male presenting with fall, tailbone pain. TECHNIQUE: Multidetector CT of the abdomen and pelvis was performed after the administration of intravenous contrast. IV contrast: 95 mL of Optiray 320. One or more dose lowering techniques were used consistent with the principles of ALARA (as low as reasonably achievable), including automatic exposure control, mA or kV adjustment to individual patient size, and/or use of iterative reconstruction. COMPARISON: 03/15/2019. CT DOSE (mGy.cm): The estimated cumulative dose is 1006.24 mGy.cm. FINDINGS: Passenger Barge Master topogram: The patient is edentulous. Stool burden suggests constipation. Lung bases: Multichamber enlargement of the heart. Coronary artery calcificati on. No pericardial or pleural effusion. Bronchial wall thickening. Extensive nodular peribronchovascular infiltrates most probably in the left lower lobe. These are new from prior. Dependent atelectasis is also evident. Liver: Normal morphology. No liver lesion. Patent hepatic vasculature. Biliary: No intrahepatic or extrahepatic biliary ductal dilatation. Normal gallbladder. Pancreas: Normal. Spleen: Normal. Adrenal glands: 2.2 cm nodule in the left adrenal gland unchanged from prior and previously consistent with a benign adenoma. Right adrenal gland normal. Kidneys and ureters: Small cysts noted in the right kidney. No nephrolithiasis or hydronephrosis. Renovascular calcification noted. Bladder: Guy catheter decompresses the urinary bladder. Pelvic organs: Prostate and seminal vesicles normal. Bowel: Moderate stool burden mildly distends the rectum. There is also a moderate stool burden more proximally. There is narrowing of the junction of the descending and sigmoid colon (series 5 image 302). No abnormal bowel wall thickening or convincing evidence of volvulus or internal hernia. No bowel obstruction. The appendix is normal. Peritoneal cavity: No free fluid or intraperitoneal gas. Lymph nodes: No gross lymphadenopathy allowing for noncontrast technique. Vasculature: Extensive atherosclerosis of the abdominal aorta, which demonstrates infrarenal aneurysmal dilatation measuring up to 2.9 cm as on prior exam. Aneurysmal dilatation of the left common iliac artery measuring 2.1 cm. Minimal ectasia of the right common iliac artery. Venous structures not yet opa cified due to the phase of contrast. Abdominal wall: Body wall edema. No superficial hematoma. Musculoskeletal: Degenerative changes of the spine and sacroiliac joints. The sacrum is intact. Old anterolateral left rib fractures noted. The coccyx is grossly intact. No displaced fracture. No cortical deformity. IMPRESSION: 1. No convincing evidence of acute osseous injury. Specifically, the coccyx is intact. 2. No acute intra-abdominal injury. 3. Stable chronic findings. 4. Constipation. 5. 2.9 cm infrarenal abdominal aortic aneurysm as on prior exam. 6. Interval development of nodular peribronchovascular infiltrates in the lung bases primarily in the left lower lobe concerning for pneumonia or aspiration. ACT 112: Negative or not required by law. Electronically signed by: Yifan Lind M.D. 06/05/2019 12:[address] head/brain wo con CLINICAL HISTORY: 79 years-old Male with fall?, weakness. Acute head injury status post fall with acute weakness TECHNIQUE: Multiple axial CT images of the head were obtained without contrast. A dose lowering technique was utilized adhering to the principles of ALARA. COMPARISON: Head CT 02/19/2019 FINDINGS: No acute intracranial hemorrhage, midline shift, intracranial mass, hydrocephalus, territorial ischemia or abnormal extra-axial collection. Age- related involutional changes. Patchy white matter hypodensities suggest chronic microvascular ischemic disease. Cerebral vascular calcifications are noted. Study is limited secondary to positioning. The calvarium is intact. Prior bilateral lens replacement. The paranasal sinuses, mastoid air cells, and middle ear cavities are clear. IMPRESSION: No acute intracranial abnormality or calvarial fracture. ACT 112: Negative or not required by law. The above report was generated using voice recognition software. It may contain grammatical, syntax or spelling errors. Electronically signed by: Ezekiel Horner M.D. 06/05/2019 12:43 PM ECG Data Attestation: I personally reviewed and interpreted this ECG as follows: Indication: + weakness Rate (beats per minute): 59 Rhythm: + sinus bradycardia ECG [place]: + Left axis deviation ECG ST segments: no ST depression and no ST elevation ECG Findings: no PVCs Blood Pressure Blood Pressure Findings: Low blood pressure Blood Pressure Disposition: further management by hospitalist YAEL Narrative Continuous Cardiac Monitoring: An order was placed for continuous cardiac monitoring. The monitor shows a rate of 59 with sinus bradycardia occasionally rising or NSR in low 60s. Patient is a 79-year-old gentleman with a past medical history including CVA, BPH, hypertension, Guy, dementia presenting from [facility] today reports of weakness developing. Patient does have a history of sepsis from UTI last in March. Reports over the last several days the patient's had increasing weakness difficulty ambulating with his walker. Patient states also that he fell yesterday hit his head and his bottom. Patient reports some tailbone pain some lower abdominal pain as well as some head pain. Benign abdomen on exam however. No focal neurological deficit the patient does seem somewhat fatigued. Patient is noted be hypotensive here but not tachycardic. Concern for possible sepsis, lactate and cultures were ordered. Guy was changed and urine culture sent as well as UA. Basic labs obtained. CT the head and abdomen pelvis were obtained. Chest x-ray obtained. Do not feel we need a CT of the cervical spine at this time. CT scan of the head without acute intracranial abnormalities. Chest x-ray is unremarkable however on the abdominal pelvis CT concerning findings for left lower lobe pneumonia was noted. No other traumatic injury noted. Patient's urinalysis from a catheter sample could represent contamination but do have concerns for infection here as well. Again empirically treated with cefepime given prior urinalysis cultures and added doxycycline for atypical coverage. Patient's blood pressures improved with fluid boluses. Believe given his weakness with pneumonia plus or minus urinary source early developing sepsis. Patient will require admission. Hospitalist contacted. Impression & Plan Left lower lobe pneumonia, Acute UTI, Acute hypotension, Weakness, Fall Discharge Plan Visit Data *Final* Discharge Date/Time: 06/05/19 16:18 Chief Complaint: Weakness ED Provider: Ean Kim Discharge Problem: Left lower lobe pneumonia, Acute UTI, Acute hypotension, Weakness, Fall Patient Disposition: Admitted As Inpatient Discharge Instructions Interventions: ED Discharge Assessment Last Done: 06/05/19 16:18 Discharge Problem: Left lower lobe pneumonia Qualifiers: Pneumonia type: due to unspecified organism Qualified Code(s): J18.9 - Pneumonia, unspecified organism Fall Qualifiers: Encounter type: initial encounter Qualified Code(s): W19.XXXA - Unspecified fall, initial encounter The scribe's documentation has been prepared under my direction and personally reviewed by me in its entirety. I confirm that the note above accurately reflects all work, treatment, procedures, and medical decision making performed by me.
[2019-06-05] MEDS: PERPHENAZINE 2 MG TABLET PO SCH (18:07)
[2019-06-05] MEDS: DOCUSATE SODIUM 100 MG CAP PO SCH (18:08)
[2019-06-05] MEDS: BENZTROPINE MESYLATE 1 MG TAB PO SCH (18:08)
[2019-06-05] MEDS: MEMANTINE HCL 10 MG TAB PO SCH (18:09)
[2019-06-05] MEDS: ENOXAPARIN INJ 40 MG/0.4 ML SYR SQ SCH (18:09)
[2019-06-05] MEDS: DOXYCYCLINE HYCLATE 100 MG CAP PO SCH (21:58)
[2019-06-05] MEDS: MIRTAZAPINE TAB 15 MG TAB PO SCH (21:59)
[2019-06-05] MEDS: ARTIFICIAL TEARS OPB SCH (22:00)
[2019-06-06] MEDS: SODIUM CHLORIDE 0.9% 1000ML 1,000 ML IV SCH (02:57)
[2019-06-06 06:55] LABS: Hematocrit (blood only) 29.8 % (42-52); Hemoglobin 9.6 g/dL (14.0-18.0); Mean Corpuscular Hemoglobin 27.8 pg (25-34); Mean Corpuscular Hgb Conc 32.2 g/dL (32-36); Mean Corpuscular Volume 86.4 fL (80-100); Mean Platelet Volume 9.8 fL (7.4-10.4); Platelet Count 208 K/uL (130-400); RDW Coefficient of Variation 15.8 % (11.5-14.5); RDW Standard Deviation 50.1 fL (36.4-46.3); Red Blood Count 3.45 M/uL (4.7-6.1); White Blood Count 14.35 K/uL (4.8-10.8)
[2019-06-06 07:26] LABS: BUN Creatinine Ratio 17.8 (10-20); Calcium 8.9 mg/dl (8.5-10.1); Creatinine Clr Calc Pharmacy 53.2 ml/min; Est GFR (African American) 74.4; Est GFR (Non-African American) 64.2; Potassium 4.4 mmol/L (3.5-5.1)
[2019-06-06] MEDS: MEMANTINE HCL 10 MG TAB PO SCH ×2 (08:30→16:23)
[2019-06-06] MEDS: FINASTERIDE 5 MG TAB PO SCH (08:30)
[2019-06-06] MEDS: ASPIRIN 81 MG ECTAB PO SCH (08:30)
[2019-06-06] MEDS: DOXYCYCLINE HYCLATE 100 MG CAP PO SCH ×2 (08:30→20:11)
[2019-06-06] MEDS: TAMSULOSIN HCL 0.4 MG CAP PO SCH (08:30)
[2019-06-06] MEDS: BENZTROPINE MESYLATE 1 MG TAB PO SCH ×2 (08:31→16:24)
[2019-06-06] MEDS: PERPHENAZINE 2 MG TABLET PO SCH ×3 (08:31→16:23)
[2019-06-06] MEDS: DOCUSATE SODIUM 100 MG CAP PO SCH ×2 (08:31→16:24)
[2019-06-06] MEDS: ARTIFICIAL TEARS OPB SCH ×2 (08:32→20:14)
[2019-06-06] MEDS: MENTHOL-ZINC OXIDE 360 APPLN/120 GM TUBE EXT SCH (08:32)
--- NOTE | 2019-06-06 10:27 | Electrocardiogram Report ---
Test Reason : Blood Pressure : / mmHG Vent. Rate : 059 BPM Atrial Rate : 059 BPM P-R Int : 208 ms QRS Dur : 084 ms QT Int : 436 ms P-R-T Axes : 106 -49 -15 degrees QTc Int : 431 ms Poor data quality, interpretation may be adversely affected Sinus bradycardia with 1st degree A-V block Left axis deviation Abnormal ECG When compared with ECG of 07-MAY-2019 12:27, No significant change was found Confirmed by Kirk Grey ([id number]) on 06/06/2019 10:27:03 AM Referred By: GWEN GOLISANO [facility] Confirmed By:Kirk Grey
[2019-06-06] MEDS: CEROVITE ADV FORMULA TAB PO SCH (11:14)
[2019-06-06] MEDS: D5W AND NSS 1,000 ML IV SCH ×2 (11:14→23:59)
[2019-06-06] MEDS: CEFEPIME 2,000 MG in SYRINGE 7.5 ML IV SCH (11:17)
[2019-06-06] MEDS: ENOXAPARIN INJ 40 MG/0.4 ML SYR SQ SCH (17:13)
--- NOTE | 2019-06-06 19:33 | Hospitalist Progress Note ---
Date of Service June 06, 2019 Assessment & Plan (1) Weakness: per admittind service notes: Pt is 79 y/o M with PMH dementia, schizoaffective disorder, CVA, HTN, chronic urinary retention with chronic Guy, CKD III presented to ER from [facility] with c/o weakness x several days. Reported fall yesterday CT HEAD: No acute intracranial abnormality or calvarial fracture. CT ABD/PELVIS: 1. No convincing evidence of acute osseous injury. Specifically, the coccyx is intact. 2. No acute intra-abdominal injury. 3. Stable chronic findings. 4. Constipation. 5. 2.9 cm infrarenal abdominal aortic aneurysm as on prior exam. 6. Interval development of nodular peribronchovascular infiltra josue in the lung bases primarily in the left lower lobe concerning for pneumonia or aspiration. CXR: IMPRESSION: 1. Minimal left lung base opacities suggest atelectasis or pneumonitis. 2. Emphysema with chronic interstitial coarsening. 3. Mild cardiomegaly. Weakness secondary to PNA, UTI management noted below (2) Left lower lobe pneumonia: per admitting service notes In ER P: 62, R: 18, BP: 86/46 up to 106/56 after 1500ml LR and 1000ml NS WBC: 9.5, Normal lactate, negative influenza CXR: Minimal left lung base opacities suggest atelectasis or pneumonitis. Infiltrates primarily LLL noted CT ABD/PELVIS -- ff up blood cultures continue cefepime, doxycycline (3) Possible urinary tract infection: (4) Chronic indwelling Guy catheter: History of chronic urinary retention with chronic Guy catheter UA: 2+ leuk esterase, 10-30 WBC, > 30 epithelial -Urine culture: gram negative bacilli - continue Cefepime catheter has been changed -Continue finasteride, tamsulosin (5) HTN (hypertension): Initially hypotensive in ER improved with IV fluids -Hold amlodipine, lisinopril (6) CKD (chronic kidney disease), stage III: BUN: 21, Cr: 1.23, GFR: 55. Baseline Cr ~1.1 - crea stable continue IV NSS, monitor (7) H/O: CVA (cerebrovascular accident): -Continue aspirin (8) Dementia: -Continue memantine (9) Schizoaffective disorder: -Continue benztropine, mirtazapine, perphenazine DVT Prophylaxis -Lovenox SQ Disposition resident of [facility] (10) Leg edema: -Hold [place] currently Admission and Anticipated Discharge Date Admission Date: June 05, 2019 Subjective ff up for weakness seen resting in bed,alert not oriented states he feels improved today no shortness of breath, cough, abdominal pain no chest pain, palpitations, dizziness no other symptoms Review of Systems Review of Systems: All systems reviewed & are unremarkable except as noted in HPI & below Physical Exam Physical Exam: General- oriented x 0, not in distress, speaks in sentences with no effort or accessory muscle use Head- atraumatic Eyes- PERRL, EOMI, anicteric ENT- dry oral mucosa Neck- supple, no JVD, no adenopathy, no thyromegaly; carotids +2/2, no bruits appreciated Lungs- (+) crackles on the left base Heart- normal rate, regular rhythm; no murmur, no gallop, no rub appreciated Abdomen- normal bowel sounds, nondistended, soft, nontender, no masses or hepatosplenomegaly Extremities- no pretibial edema, no calf tenderness; peripheral pulses intact Neuro- alert, oriented x 0; no other gross focal deficits Skin- warm & dry Results & Data ([facility]) Vital Signs (Past 12 Hours) Vital Signs Temp Pulse Pulse Resp BP Pulse Ox 06/06/19 16:47 76 06/06/19 15:21 36.6 C 75 18 119/69 96 06/06/19 11:47 36.6 C 75 20 125/71 97 (1) Schizoaffective disorder Schizoaffective disorder type: unspecified Qualified Code(s): F25.9 - Schizoaffective disorder, unspecified (2) Left lower lobe pneumonia Pneumonia type: due to unspecified organism Qualified Code(s): J18.9 - Pneumonia, unspecified organism
[2019-06-06] MEDS: MIRTAZAPINE TAB 15 MG TAB PO SCH (20:12)
[2019-06-07] MEDS: ARTIFICIAL TEARS OPB SCH ×2 (07:59→20:06)
[2019-06-07] MEDS: PERPHENAZINE 2 MG TABLET PO SCH ×3 (08:00→16:24)
[2019-06-07] MEDS: ASPIRIN 81 MG ECTAB PO SCH (08:02)
[2019-06-07] MEDS: TAMSULOSIN HCL 0.4 MG CAP PO SCH (08:03)
[2019-06-07] MEDS: BENZTROPINE MESYLATE 1 MG TAB PO SCH ×2 (08:03→16:23)
[2019-06-07] MEDS: MEMANTINE HCL 10 MG TAB PO SCH ×2 (08:03→16:23)
[2019-06-07] MEDS: FINASTERIDE 5 MG TAB PO SCH (08:03)
[2019-06-07] MEDS: DOXYCYCLINE HYCLATE 100 MG CAP PO SCH ×2 (08:03→20:05)
[2019-06-07] MEDS: MENTHOL-ZINC OXIDE 360 APPLN/120 GM TUBE EXT SCH (08:04)
[2019-06-07] MEDS: DOCUSATE SODIUM 100 MG CAP PO SCH ×2 (08:20→16:23)
[2019-06-07] MEDS: CEROVITE ADV FORMULA TAB PO SCH (11:36)
[2019-06-07] MEDS: CEFEPIME 2,000 MG in SYRINGE 7.5 ML IV SCH (11:36)
--- NOTE | 2019-06-07 16:58 | Hospitalist Progress Note ---
Date of Service June 07, 2019 Assessment & Plan (1) Weakness: -per admittind service notes: "Pt is 79 y/o M with PMH dementia, schizoaffective disorder, CVA, HTN, chronic urinary retention with chronic Stafford, CKD III presented to ER from [facility] with c/o weakness x several days. Reported fall yesterday CT HEAD: No acute intracranial abnormality or calvarial fracture. CT ABD/PELVIS: 1. No convincing evidence of acute osseous injury. Specifically, the coccyx is intact. 2. No acute intra-abdominal injury. 3. Stable chronic findings. 4. Constipation. 5. 2.9 cm infrarenal abdominal aortic aneurysm as on prior exam. 6. Interval development of nodular peribronchovascular infiltr ates in the lung bases primarily in the left lower lobe concerning for pneumonia or aspiration." CXR: IMPRESSION: 1. Minimal left lung base opacities suggest atelectasis or pneumonitis. 2. Emphysema with chronic interstitial coarsening. 3. Mild cardiomegaly. (2) Left lower lobe pneumonia: per admitting service notes In ER P: 62, R: 18, BP: 86/46 up to 106/56 after 1500ml LR and 1000ml NS WBC: 9.5, Normal lactate, negative influenza CXR: Minimal left lung base opacities suggest atelectasis or pneumonitis. Infiltrates primarily LLL noted CT ABD/PELVIS -initially on IV cefepime and oral doxycyline -blood cultures with no growth -urine culture on this admission returned as Proteus mirabilis so while this bacteria can be a urinary tract infection that can cause weakness symptoms, it is also possibly a colonization as his urine was also positive on May 2019 -patient also has chronic indwelling stafford which increases risks of urinary tract infection 06/07/2019 Patient in no acute distress. He has been pulling out his peripheral IV lines - pulled out 3 IV lines. He does not appear to be a good candidate for further IV antibiotics and therefore medications need to be switch to oral antibiotics alone. Continue doxycycline 100 mg BID by mouth for respiratory coverage. The cefepime would have been better treatment for proteus in the urine but as patient cannot cooperate with peripheral IV lines, he will be switched to alternative beta lactam as Augmentin BID which also helps with respiratory coverage. (3) Possible urinary tract infection: management as above (4) Chronic indwelling Stafford catheter: History of chronic urinary retention with chronic Stafford catheter -continue current catheter -Continue finasteride, tamsulosin (5) HTN (hypertension): Initially hypotensive in ER improved with IV fluids -Holding amlodipine, lisinopril (6) CKD (chronic kidney disease), stage III: BUN: 21, Cr: 1.23, GFR: 55. Baseline Cr ~1.1 -creatinine stable, off IV fluids (7) H/O: CVA (cerebrovascular accident): -Continue aspirin (8) Dementia: -Continue memantine (9) Schizoaffective disorder: -Continue benztropine, mirtazapine, perphenazine DVT Prophylaxis -Lovenox SQ Disposition resident of [facility] (10) Leg edema: -Hold lasix currently Admission and Anticipated Discharge Date Admission Date: June 05, 2019 Subjective Patient in no acute distress. He has been pulling out his peripheral IV lines - pulled out 3 IV lines. He does not appear to be a good candidate for further IV antibiotics and therefore medications need to be switch to oral antibiotics alone. Continue doxycycline 100 mg BID by mouth for respiratory coverage. The cefepime would have been better treatment for proteus in the urine but as patient cannot cooperate with peripheral IV lines, he will be switched to alternative beta lactam as Augmentin BID which also helps with respiratory coverage. patient denies pain. breathing on room air. has rivera Review of Systems Review of Systems: All systems reviewed & are unremarkable except as noted in HPI & below Physical Exam Constitutional: WD/WN, vitals as above Eyes: PERRL, conjunctivae normal, anicteric sclerae EOM intact bilaterally ENMT: chronic right upper lip hemangioma Neck: normal visual inspection Respiratory: normal respiratory effort Cardiovascular: Rate/Rhythm: regular rate Gastrointestinal (Abdomen): normal bowel sounds, soft, nontender, no hepatosplenomegaly Musculoskeletal: no cyanosis or clubbing, extremities motor strength 5/5 Neurologic: PERRL, EOMI, accommodation nl, no face palsy, no dysarthria Psychiatric: Orientation: alert Genitourinary: has stafford Results & Data ([place]) Vital Signs (Past 12 Hours) Vital Signs Temp Pulse Pulse Resp BP BP Pulse Ox 06/07/19 16:03 82 06/07/19 15:27 36.4 C L 66 16 124/64 96 06/07/19 11:46 36.4 C L 74 20 138/73 96 06/07/19 08:00 81 06/07/19 07:00 36.3 C L 80 20 137/79 94 (1) Left lower lobe pneumonia Pneumonia type: due to unspecified organism Qualified Code(s): J18.9 - Pneumonia, unspecified organism (2) Schizoaffective disorder Schizoaffective disorder type: unspecified Qualified Code(s): F25.9 - Schizoaffective disorder, unspecified
[2019-06-07] MEDS: AMOXICILLIN/CLAVULANATE 875 MG TAB PO SCH (18:30)
[2019-06-07] MEDS: ENOXAPARIN INJ 40 MG/0.4 ML SYR SQ SCH (18:31)
[2019-06-07] MEDS: MIRTAZAPINE TAB 15 MG TAB PO SCH (20:05)
[2019-06-08] MEDS: ASPIRIN 81 MG ECTAB PO SCH (08:33)
[2019-06-08] MEDS: FINASTERIDE 5 MG TAB PO SCH (08:33)
[2019-06-08] MEDS: MENTHOL-ZINC OXIDE 360 APPLN/120 GM TUBE EXT SCH (08:33)
[2019-06-08] MEDS: PERPHENAZINE 2 MG TABLET PO SCH ×3 (08:33→16:25)
[2019-06-08] MEDS: ARTIFICIAL TEARS OPB SCH ×2 (08:34→21:34)
[2019-06-08] MEDS: TAMSULOSIN HCL 0.4 MG CAP PO SCH (08:34)
[2019-06-08] MEDS: DOCUSATE SODIUM 100 MG CAP PO SCH ×2 (08:34→16:29)
[2019-06-08] MEDS: DOXYCYCLINE HYCLATE 100 MG CAP PO SCH ×2 (08:34→21:34)
[2019-06-08] MEDS: BENZTROPINE MESYLATE 1 MG TAB PO SCH ×2 (08:34→16:25)
[2019-06-08] MEDS: AMOXICILLIN/CLAVULANATE 875 MG TAB PO SCH ×2 (08:34→16:24)
[2019-06-08] MEDS: MEMANTINE HCL 10 MG TAB PO SCH ×2 (08:34→16:25)
[2019-06-08 08:38] LABS: Basophils # (auto) 0.04 K/uL (0-0.2); Basophils % (auto) 0.6 %; Eosinophils % (auto) 2.8 %; Hematocrit (blood only) 30.6 % (42-52); Hemoglobin 9.8 g/dL (14.0-18.0); Immature Granulocytes # (auto) 0.02 K/uL (0.00-0.02); Immature Granulocytes % (auto) 0.3 %; Lymphocytes # (auto) 1.56 K/uL (1.2-3.4); Lymphocytes % (auto) 21.6 %; Mean Corpuscular Hemoglobin 27.8 pg (25-34); Mean Corpuscular Volume 86.9 fL (80-100); Mean Platelet Volume 10.1 fL (7.4-10.4); Monocytes # (auto) 0.67 K/uL (0.11-0.59); Monocytes % (auto) 9.3 %; Neutrophils # (auto) 4.73 K/uL (1.4-6.5); Neutrophils % (auto) 65.4 %; Platelet Count 197 K/uL (130-400); RDW Coefficient of Variation 15.8 % (11.5-14.5); Red Blood Count 3.52 M/uL (4.7-6.1); White Blood Count 7.22 K/uL (4.8-10.8)
[2019-06-08 09:11] LABS: Albumin Level 2.4 gm/dl (3.4-5.0); BUN Creatinine Ratio 15.5 (10-20); Calcium 9.2 mg/dl (8.5-10.1); Creatinine Clr Calc Pharmacy 54.2 ml/min; Est GFR (African American) 76.1; Est GFR (Non-African American) 65.7; Potassium 3.8 mmol/L (3.5-5.1)
[2019-06-08 09:14] LABS: Albumin Globulin Ratio 0.6 (0.9-2); Bilirubin,Total 0.4 mg/dl (0.2-1); Globulin 4.1 gm/dl (2.5-4.0); Total Protein 6.5 gm/dl (6.4-8.2)
[2019-06-08] MEDS: PANTOprazole 40 MG TAB PO SCH (10:34)
--- NOTE | 2019-06-08 10:47 | Hospitalist Progress Note ---
Date of Service June 08, 2019 Assessment & Plan (1) Weakness: -per admittind service notes: "Pt is 79 y/o M with PMH dementia, schizoaffective disorder, CVA, HTN, chronic urinary retention with chronic Stafford, CKD III presented to ER from [facility] with c/o weakness x several days. Reported fall yesterday CT HEAD: No acute intracranial abnormality or calvarial fracture. CT ABD/PELVIS: 1. No convincing evidence of acute osseous injury. Specifically, the coccyx is intact. 2. No acute intra-abdominal injury. 3. Stable chronic findings. 4. Constipation. 5. 2.9 cm infrarenal abdominal aortic aneurysm as on prior exam. 6. Interval development of nodular peribronchovascular infiltr ates in the lung bases primarily in the left lower lobe concerning for pneumonia or aspiration." CXR: IMPRESSION: 1. Minimal left lung base opacities suggest atelectasis or pneumonitis. 2. Emphysema with chronic interstitial coarsening. 3. Mild cardiomegaly. (2) Left lower lobe pneumonia: per admitting service notes In ER P: 62, R: 18, BP: 86/46 up to 106/56 after 1500ml LR and 1000ml NS WBC: 9.5, Normal lactate, negative influenza CXR: Minimal left lung base opacities suggest atelectasis or pneumonitis. Infiltrates primarily LLL noted CT ABD/PELVIS -initially on IV cefepime and oral doxycyline -blood cultures with no growth -urine culture on this admission returned as Proteus mirabilis so while this bacteria can be a urinary tract infection that can cause weakness symptoms, it is also possibly a colonization as his urine was also positive on May 2019 -patient also has chronic indwelling stafford which increases risks of urinary tract infection 06/07/2019 Patient in no acute distress. He has been pulling out his peripheral IV lines - pulled out 3 IV lines. He does not appear to be a good candidate for further IV antibiotics and therefore medications need to be switch to oral antibiotics alone. Continue doxycycline 100 mg BID by mouth for respiratory coverage. The cefepime would have been better treatment for proteus in the urine but as patient cannot cooperate with peripheral IV lines, he will be switched to alternative beta lactam as Augmentin BID which also helps with respiratory coverage. 06/08/2019 white blood cell count normalized, continue oral antibiotics (3) Possible urinary tract infection: management as above (4) Chronic indwelling Stafford catheter: History of chronic urinary retention with chronic Stafford catheter -continue current catheter -resume finasteride, tamsulosin (5) HTN (hypertension): Initially hypotensive in ER improved with IV fluids -Holding amlodipine, lisinopril (6) CKD (chronic kidney disease), stage III: BUN: 21, Cr: 1.23, GFR: 55. Baseline Cr ~1.1 -creatinine stable, off IV fluids (7) H/O: CVA (cerebrovascular accident): -Continue aspirin (8) Dementia: -Continue memantine (9) Schizoaffective disorder: -Continue benztropine, mirtazapine, perphenazine DVT Prophylaxis -Lovenox SQ Disposition resident of [facility] (10) Leg edema: -Hold lasix currently Admission and Anticipated Discharge Date Admission Date: June 05, 2019 Subjective Patient seen and examined while sleeping. No acute distress. breathing on room air. Review of Systems Review of Systems: All systems reviewed & are unremarkable except as noted in HPI & below Physical Exam Constitutional: WD/WN, vitals as above ENMT: chronic right upper lip hemangioma Neck: normal visual inspection Respiratory: normal respiratory effort Cardiovascular: Rate/Rhythm: regular rate Gastrointestinal (Abdomen): normal bowel sounds, soft, nontender, no hepatosplenomegaly Musculoskeletal: no cyanosis or clubbing, extremities motor strength 5/5 Neurologic: PERRL, EOMI, accommodation nl, no face palsy, no dysarthria Psychiatric: Orientation: alert Results & Data ([facility]) Vital Signs (Past 12 Hours) Vital Signs Temp Pulse Resp BP Pulse Ox 06/08/19 07:05 36.5 C 74 18 158/92 H 97 (1) Schizoaffective disorder Schizoaffective disorder type: unspecified Qualified Code(s): F25.9 - Schizoaffective disorder, unspecified (2) Left lower lobe pneumonia Pneumonia type: due to unspecified organism Qualified Code(s): J18.9 - Pneumonia, unspecified organism
[2019-06-08] MEDS: CEROVITE ADV FORMULA TAB PO SCH (12:47)
[2019-06-08] MEDS ORDERED: TAMSULOSIN HCL 0.4 MG CAP PO SCH (15:45)
[2019-06-08] MEDS: ENOXAPARIN INJ 40 MG/0.4 ML SYR SQ SCH ×2 (18:09→19:02)
[2019-06-08] MEDS: MIRTAZAPINE TAB 15 MG TAB PO SCH (21:34)
[2019-06-09] MEDS: PERPHENAZINE 2 MG TABLET PO SCH ×2 (09:25→12:30)
[2019-06-09] MEDS: DOXYCYCLINE HYCLATE 100 MG CAP PO SCH (09:25)
[2019-06-09] MEDS: TAMSULOSIN HCL 0.4 MG CAP PO SCH (09:26)
[2019-06-09] MEDS: AMOXICILLIN/CLAVULANATE 875 MG TAB PO SCH (09:26)
[2019-06-09] MEDS: ASPIRIN 81 MG ECTAB PO SCH (09:26)
[2019-06-09] MEDS: MEMANTINE HCL 10 MG TAB PO SCH (09:26)
[2019-06-09] MEDS: FINASTERIDE 5 MG TAB PO SCH (09:26)
[2019-06-09] MEDS: PANTOprazole 40 MG TAB PO SCH (09:26)
[2019-06-09] MEDS: BENZTROPINE MESYLATE 1 MG TAB PO SCH (09:27)
[2019-06-09] MEDS: ARTIFICIAL TEARS OPB SCH (09:27)
[2019-06-09] MEDS: DOCUSATE SODIUM 100 MG CAP PO SCH (09:37)
[2019-06-09] MEDS: MENTHOL-ZINC OXIDE 360 APPLN/120 GM TUBE EXT SCH (10:11)
--- NOTE | 2019-06-09 10:56 | Hospitalist Progress Note ---
Date of Service June 09, 2019 Assessment & Plan (1) Weakness: -per admittind service notes: "Pt is 79 y/o M with PMH dementia, schizoaffective disorder, CVA, HTN, chronic urinary retention with chronic Stafford, CKD III presented to ER from [facility] with c/o weakness x several days. Reported fall yesterday CT HEAD: No acute intracranial abnormality or calvarial fracture. CT ABD/PELVIS: 1. No convincing evidence of acute osseous injury. Specifically, the coccyx is intact. 2. No acute intra-abdominal injury. 3. Stable chronic findings. 4. Constipation. 5. 2.9 cm infrarenal abdominal aortic aneurysm as on prior exam. 6. Interval development of nodular peribronchovascular infiltr ates in the lung bases primarily in the left lower lobe concerning for pneumonia or aspiration." CXR: IMPRESSION: 1. Minimal left lung base opacities suggest atelectasis or pneumonitis. 2. Emphysema with chronic interstitial coarsening. 3. Mild cardiomegaly. (2) Left lower lobe pneumonia: per admitting service notes In ER P: 62, R: 18, BP: 86/46 up to 106/56 after 1500ml LR and 1000ml NS WBC: 9.5, Normal lactate, negative influenza CXR: Minimal left lung base opacities suggest atelectasis or pneumonitis. Infiltrates primarily LLL noted CT ABD/PELVIS -initially on IV cefepime and oral doxycyline -blood cultures with no growth -urine culture on this admission returned as Proteus mirabilis so while this bacteria can be a urinary tract infection that can cause weakness symptoms, it is also possibly a colonization as his urine was also positive on May 2019 -patient also has chronic indwelling stafford which increases risks of urinary tract infection 06/07/2019 Patient in no acute distress. He has been pulling out his peripheral IV lines - pulled out 3 IV lines. He does not appear to be a good candidate for further IV antibiotics and therefore medications need to be switch to oral antibiotics alone. Continue doxycycline 100 mg BID by mouth for respiratory coverage. The cefepime would have been better treatment for proteus in the urine but as patient cannot cooperate with peripheral IV lines, he will be switched to alternative beta lactam as Augmentin BID which also helps with respiratory coverage. 06/08/2019 white blood cell count normalized, continue oral antibiotics as 5 more days of Augmentin 875/125 mg BID and Doxycycline 100 mg BID 06/09/2019: discharge to [facility] for physical rehabilitation with (3) Possible urinary tract infection: management as above (4) Chronic indwelling Stafford catheter: History of chronic urinary retention with chronic Stafford catheter -continue current catheter -resume finasteride, tamsulosin (5) HTN (hypertension): Initially hypotensive in ER improved with IV fluids -Holding amlodipine -patient may resume lisinopril on discharge (6) Leg edema: -patient may resume home dose Lasix 20 mg daily on discharge (7) CKD (chronic kidney disease), stage III: BUN: 21, Cr: 1.23, GFR: 55. Baseline Cr ~1.1 -creatinine stable, off IV fluids (8) H/O: CVA (cerebrovascular accident): -Continue aspirin (9) Dementia: -Continue memantine (10) Schizoaffective disorder: -Continue benztropine, mirtazapine, perphenazine Admission and Anticipated Discharge Date Admission Date: June 05, 2019 Subjective Patient seen and examined while ambulating with the therapist. He is not in distress. speaking in full sentences. no chest pain.no room air. no shortness of breath. no headache. no dizziness. Review of Systems Review of Systems: All systems reviewed & are unremarkable except as noted in HPI & below Physical Exam Constitutional: WD/WN, vitals as above Eyes: PERRL, conjunctivae normal, anicteric sclerae EOM intact bilaterally Neck: normal visual inspection Respiratory: normal respiratory effort Cardiovascular: Rate/Rhythm: regular rate Gastrointestinal (Abdomen): normal bowel sounds, soft, nontender, no hepatosp lenomegaly Musculoskeletal: no cyanosis or clubbing, extremities motor strength 5/5 Neurologic: PERRL, EOMI, accommodation nl, no face palsy, no dysarthria Psychiatric: Orientation: alert Results & Data ([facility]) Vital Signs (Past 12 Hours) Vital Signs Temp Pulse Resp BP Pulse Ox 06/08/19 23:29 36.4 C L 82 16 137/79 95 (1) Schizoaffective disorder Schizoaffective disorder type: unspecified Qualified Code(s): F25.9 - Schizoaffective disorder, unspecified (2) Left lower lobe pneumonia Pneumonia type: due to unspecified organism Qualified Code(s): J18.9 - Pneumonia, unspecified organism
--- NOTE | 2019-06-09 10:58 | Discharge Summary ---
Date of Service June 09, 2019 Admission HPI Per Admitting Provider Pt is 79 y/o M with PMH dementia, schizoaffective disorder, CVA, HTN, chronic urinary retention with chronic Stafford, CKD III presented to ER from [facility] with complaint of weakness. Limited history obtained from patient, remaining history obtained from staff and medical records. It is reported patient with increased weakness over the past several days. Patient usually ambulates with a walker however has been increasingly weak and unable to ambulate appropriately with walker. Reported patient had a fall yesterday and hit head and buttocks. No report of any LOC. Patient complaining of pain to his tailbone. Patient with history sepsis secondary to Pseudomonas in 02/2019. Patient denies cough, shortness of breath, chest pain, headache, N/V/D/C, dizziness, neck pain, back pain, palpitations, sore throat, choking, otalgia, rhinorrhea, abdominal pain, paresthesias, rashes, hematuria. Admission Exam Per Admitting Provider General: no distress, WDWN Head: normocephalic, atraumatic Eyes: PERRL, EOM's intact, conjunctiva non-injected, anicteric ENT: normal inspection external ears, nose, mucous membranes mildly dry; no dentition; right upper lip with large swollen purple coloration (pt reports chronic hemangioma) Neck: supple, trachea midline, non-tender, ROM intact Lungs: clear, no respiratory distress, mildly diminished bases, no rhonchi, rales or wheezing noted CV: RRR, no murmur, trace pretibial edema Abd: normal BS, soft, non-tender Back: no spinous process tenderness to palpation; Buttocks +tenderness to palpat ion over coccyx Ext: no cyanosis, no calf tenderness Neuro: Alert, oriented to person only, no focal deficits noted, Skin: warm, dry Principal Diagnosis Weakness Left lower lobe pneumonia Possible urinary tract infection Chronic indwelling Stafford catheter HTN (hypertension) CKD (chronic kidney disease), stage III Schizoaffective disorder Dementia Discharge Exam Constitutional WD/WN, vitals as above Eyes PERRL, conjunctivae normal, anicteric sclerae EOM intact bilaterally Neck normal visual inspection Respiratory normal respiratory effort Cardiovascular Rate/Rhythm: regular rate Gastrointestinal (Abdomen) normal bowel sounds, soft, nontender, no hepatosplenomegaly Musculoskeletal no cyanosis or clubbing, extremities motor strength 5/5 Neurologic PERRL, EOMI, accommodation nl, no face palsy, no dysarthria Psychiatric Orientation: alert Discharge Data Allergies Allergy/AdvReac Type Severity Reaction Status Date / Time olanzapine Allergy Mild "IT DOES Verified 06/05/19 13:35 NOT WORK" risperidone Allergy Unknown UNKNOWN Verified 06/05/19 13:35 Influenza Virus Vaccines AdvReac PAIN AT Verified 06/05/19 16:49 INJECTION SITE Tricyclic Antidepressants Allergy Unknown . Uncoded 06/05/19 13:35 Consultations 06/05/19 13:24 ED Decision to Admit Stat 06/05/19 16:44 Consult Case Management - Discharge Planning Routine Ordered Studies 06/05/19 10:55 CT abd pelvis IV con only Stat CT head/brain wo con Stat Hospital Course (1) Weakness: -per admittind service notes: "Pt is 79 y/o M with PMH dementia, schizoaffective disorder, CVA, HTN, chronic urinary retention with chronic Stafford, CKD III presented to ER from [facility] with c/o weakness x several days. Reported fall yesterday CT HEAD: No acute intracranial abnormality or calvarial fracture. CT ABD/PELVIS: 1. No convincing evidence of acute osseous injury. Specifically, the coccyx is intact. 2. No acute intra-abdominal injury. 3. Stable chronic findings. 4. Constipation. 5. 2.9 cm infrarenal abdominal aortic aneurysm as on prior exam. 6. Interval development of nodular peribronchovascular infiltrates in the lung bases primarily in the left lower lobe concerning for pneumonia or aspiration." CXR: IMPRESSION: 1. Minimal left lung base opacities suggest atelectasis or pneumonitis. 2. Emphysema with chronic interstitial coarsening. 3. Mild cardiomegaly. (2) Left lower lobe pneumonia: per admitting service notes In ER P: 62, R: 18, BP: 86/46 up to 106/56 after 1500ml LR and 1000ml NS WBC: 9.5, Normal lactate, negative influenza CXR: Minimal left lung base opacities suggest atelectasis or pneumonitis. Infiltrates primarily LLL noted CT ABD/PELVIS -initially on IV cefepime and oral doxycyline -blood cultures with no growth -urine culture on this admission returned as Proteus mirabilis so while this bacteria can be a urinary tract infection that can cause weakness symptoms, it is also possibly a colonization as his urine was also positive on May 2019 -patient also has chronic indwelling stafford which increases risks of urinary tract infection 06/07/2019 Patient in no acute distress. He has been pulling out his peripheral IV lines - pulled out 3 IV lines. He does not appear to be a good candidate for further IV antibiotics and therefore medications need to be switch to oral antibiotics mynor e. Continue doxycycline 100 mg BID by mouth for respiratory coverage. The cefepime would have been better treatment for proteus in the urine but as patient cannot cooperate with peripheral IV lines, he will be switched to alternative beta lactam as Augmentin BID which also helps with respiratory coverage. 06/08/2019 white blood cell count normalized, continue oral antibiotics as 5 more days of Augmentin 875/125 mg BID and Doxycycline 100 mg BID 06/09/2019: discharge to [facility] for physical rehabilitation with (3) Possible urinary tract infection: management as above (4) Chronic indwelling Stafford catheter: History of chronic urinary retention with chronic Stafford catheter -continue current catheter -resume finasteride, tamsulosin (5) HTN (hypertension): Initially hypotensive in ER improved with IV fluids -Holding amlodipine -patient may resume lisinopril on discharge (6) Leg edema: -patient may resume home dose Lasix 20 mg daily on discharge (7) CKD (chronic kidney disease), stage III: BUN: 21, Cr: 1.23, GFR: 55. Baseline Cr ~1.1 -creatinine stable, off IV fluids (8) H/O: CVA (cerebrovascular accident): -Continue aspirin (9) Dementia: -Continue memantine (10) Schizoaffective disorder: -Continue benztropine, mirtazapine, perphenazine Total Time Total Time Spent Total Time Spent (In Minutes): 40 minutes Total Time Includes: Examination of the Patient, Discharge Planning, Medication Reconciliation and Communication With Other Providers Discharge Plan Discharge Items Patient Disposition: Transfer Inpatient Rehab Fac Reason For Visit: PNEUMONIA, WEAKNESS Discharge Diagnosis: Weakness Left lower lobe pneumonia Possible urinary tract infection Chronic indwelling Stafford catheter HTN (hypertension) CKD (chronic kidney disease), stage III Schizoaffective disorder Dementia Condition on Discharge: Good Activity: Per Instructions section Non-emergency contact: Primary Care Provider Call non-emergency contact if: you have any medication questions Follow-up/Referrals: [facility] [Primary Care Provider] - Diet: Heart Healthy Diet Comment: minced moist diet Addtl Attending Provider Instructions: discharge to [facility] 5 more days of Augmentin 875/125 mg BID and Doxycycline 100 mg BID Pending Studies at Discharge: No Stand-Alone Forms: My [facility] Skilled Items Patient informed of condition?: Yes DNR: No Discharge Level of Care: Acute rehab Communicable Disease: No Discharge Prognosis: Stable Lines: None Urinary Catheter: Yes Medications and DC Order Prescriptions: New doxycycline hyclate 100 mg Capsule 100 mg PO BID 5 Days Qty: 10 RF: 0 amoxicillin-pot clavulanate [Augmentin] 875-125 mg Tablet 1 tab PO BIDM 5 Days Qty: 10 RF: 0 Continued lidocaine HCl 2 % Jelly 10 ml EXT Q6H PRN (Reason: pain at urinary cath site) Qty: 50 RF: 1 tamsulosin 0.4 mg Capsule 0.4 mg PO QAM@0800 RF: 0 acetaminophen [Tylenol] 325 mg Tablet 650 mg PO Q4 MDD 3G PRN (Reason: Fever Or Pain) RF: 0 perphenazine 2 mg Tablet 6 mg PO TID RF: 0 lisinopril 5 mg Tablet 5 mg PO QAM@0800 RF: 0 furosemide 20 mg Tablet 20 mg PO QAM@0800 RF: 0 aspirin 81 mg Tablet,Delayed Release (Dr/Ec) 81 mg PO QAM@0800 RF: 0 lorazepam 0.5 mg Tablet 0.5 mg PO TID PRN (Reason: Anxiety) RF: 0 fluphenazine decanoate 25 mg/mL Solution 25 mg IM MONTHLY RF: 0 mirtazapine 30 mg Tablet 30 mg PO HS@2000 RF: 0 benztropine 1 mg Tablet 1 mg PO BID RF: 0 docusate sodium 100 mg Tablet 100 mg PO BID RF: 0 Bing's wort 300 mg Capsule 300 mg PO QAM@0800 RF: 0 Artificial Tears (PF) Dropperette 1 drp OPB BID RF: 0 memantine 10 mg Tablet 10 mg PO BID RF: 0 Calmoseptine 0.44-20.6 % Ointment 1 applic TOPICAL DAILY RF: 0 fluphenazine HCl 2.5 mg tablet 2.5 mg PO Q6H PRN (Reason: Mood Stabilizer) RF: 0 finasteride 5 mg Tablet 5 mg PO QAM@0800 RF: 0 multivitamin with iron Tablet 1 tab PO QAM@0800 RF: 0 Discontinued amlodipine 2.5 mg Tablet 2.5 mg PO QAM@0800 RF: 0 amlodipine 5 mg Tablet 5 mg PO QAM@0800 RF: 0 Discharge Orders: Discharge Order (Routine); Ordered 06/09/19 Ordered By: Rolan Jones Admission Data Admit Date/Time: 06/05/19 13:56 Attending Provider: Rolan Jones Admit Provider: Evelin Joseph Primary Care Provider: GWEN ORTIZ [facility] Other Providers: Evelin Joseph ; Courtney Fraga [facility] ; [facility]
[2019-06-09] MEDS: CEROVITE ADV FORMULA TAB PO SCH (12:30)
== END 2019-06-09 14:03 | DRG 698 ==
LOC: ED 10:40 → SUATTDRO 13:56 → 2N 13:56 → 3W 06-08 09:19

== ENCOUNTER 2019-06-27 16:18 | Inpatient (IN) ==
[2019-06-27] MEDS ORDERED: SODIUM CHLORIDE 0.9% 1000ML 1,000 ML IV ONE (16:42)
--- NOTE | 2019-06-27 17:00 | Emergency Department Note ---
History of Present Illness General Chief Complaint: Altered Mental Status Stated Complaint: MENTAL STATUS CHANGE, HEMATURIA Time Seen by Provider: 06/27/19 16:31 Source: EMS, RN notes reviewed and old records reviewed Mode of arrival: EMS Limitations: altered mental status History of Present Illness Provider complaint: altered mental status Onset (ago): unknown Severity: severe Consistency of symptoms: constant Context: no alcohol abuse and no drug abuse Treatments prior to arrival: none This is a 79-year-old male who presents to the ED via EMS with a chief complaint of altered mental status. The patient has been found today at the local [facility] lethargic and not responding appropriately. Normally he is walking around the facility and interacting with people. He may have fallen overnight. There is no clear history. The patient's blood sugar by EMS was 107. They reported that his blood pressures been running low as well. The patient is unable to provide any history because he is mostly not responsive to verbal stimuli. He does wince to pain and he does follow basic commands like opening his eyes and holding up his thumb. No additional history is available at this time. Home Medications Home Medications Medication Instructions Recorded Confirmed Type Artificial Tears (PF) 1 drp OPB BID 11/22/18 06/27/19 History Calmoseptine 1 applic TOPICAL DAILY 11/22/18 06/27/19 History aspirin 81 mg PO QAM@0800 11/22/18 06/27/19 History benztropine 1 mg PO BID 11/22/18 06/27/19 History docusate sodium 100 mg PO BID 11/22/18 06/27/19 History fluphenazine decanoate 25 mg IM MONTHLY 11/22/18 06/27/19 History memantine 10 mg PO BID 11/22/18 06/27/19 History mirtazapine 30 mg PO HS@2000 11/22/18 06/27/19 History lidocaine HCl 10 ml EXT Q6H PRN #50 ml 02/24/19 06/27/19 Rx acetaminophen [Tylenol] 650 mg PO Q4 PRN MDD 3G 03/15/19 06/27/19 History tamsulosin 0.4 mg PO QAM@0800 03/15/19 06/27/19 History finasteride 5 mg PO QAM@0800 05/07/19 06/27/19 History fluphenazine HCl 2.5 mg PO Q6H PRN 05/07/19 06/27/19 History multivitamin with iron 1 tab PO QAM@0800 05/07/19 06/27/19 History furosemide 20 mg PO QAM@0800 06/05/19 06/27/19 History lisinopril 5 mg PO QAM@0800 06/05/19 06/27/19 History perphenazine 6 mg PO TID 06/05/19 06/27/19 History benzocaine-menthol [Cepacol Sore 1 sheila PO Q4 PRN 06/27/19 06/27/19 History Throat (anand-men)] calcium carbonate [Calcium Antacid] 500 mg PO Q4 PRN 06/27/19 06/27/19 History loperamide [Imodium A-D] 2 mg PO Q3H PRN 06/27/19 06/27/19 History methyl salicylate-menthol [Muscle 1 applic TOPICAL QID PRN 06/27/19 06/27/19 History Rub] polyethylene glycol 3350 [Miralax] 17 g PO DAILY PRN 06/27/19 06/27/19 History simethicone 80 mg PO TID PRN 06/27/19 06/27/19 History Allergies Allergy/AdvReac Type Severity Reaction Status Date / Time olanzapine Allergy Mild "IT DOES Verified 06/27/19 17:40 NOT WORK" risperidone Allergy Unknown UNKNOWN Verified 06/27/19 17:40 Influenza Virus Vaccines AdvReac PAIN AT Verified 06/27/19 17:40 INJECTION SITE Tricyclic Antidepressants Allergy Unknown . Uncoded 06/27/19 17:40 Past Med/Surg History Medical History Anemia Anxiety BPH loc w urin obs/LUTS CKD (chronic kidney disease), stage III Dementia (Chronic) Dysphagia (Chronic) following CVA H/O: CVA (cerebrovascular accident) (Chronic) Hemangioma of lip (Inactive) HTN (hypertension) (Chronic) Indwelling Guy catheter present Muscle weakness (generalized) Pulmonary nodule Schizoaffective disorder (Chronic) Sepsis due to Pseudomonas March 2019 Urinary retention Urinary retention due to benign prostatic hyperplasia (Chronic) Surgical History Hx of cataract surgery (Chronic) S/P tonsillectomy (Chronic) Family History Other Hypertension Social History Preferred Language: Sinhala Communication Ability: Effective [employer] Solution Architect Required: No Beliefs That Will Affect Care: None marital status: Single Current Living Situation: Personal Care Facility Current Living Situation Comment: [facility] Feels Safe at Home: Yes Smoking Status: Unknown if ever smoked Hx Alcohol Use: No Hx Substance Use: No Review of Systems A total of 10 systems reviewed and were otherwise negative Physical Exam Vital Signs Vital Signs - 24 hr 06/27/19 16:25 06/27/19 16:28 06/27/19 16:30 Temperature Temperature Source Pulse Rate 92 H 91 H Pulse Rate from SpO2 Sensor Pulse Rhythm Pulse Strength Respiratory Rate 21 22 24 Respiratory Effort / Characteristics Respiratory Depth Respiratory Pattern Blood Pressure 95/66 L Blood Pressure Mean 75 Pulse Oximetry Oxygen Delivery Method Sepsis Recent Fever Within 48 Hours Sepsis Action Taken by Nursing 06/27/19 16:34 06/27/19 16:36 06/27/19 16:41 Temperature Temperature Source Pulse Rate 89 91 H 87 Pulse Rate from SpO2 Sensor Pulse Rhythm Pulse Strength Respiratory Rate 20 25 H 20 Respiratory Effort / Characteristics Respiratory Depth Respiratory Pattern Blood Pressure 134/51 L 94/47 L 104/51 L Blood Pressure Mean 63 76 65 Pulse Oximetry Oxygen Delivery Method Sepsis Recent Fever Within 48 Hours Sepsis Action Taken by Nursing 06/27/19 16:45 06/27/19 16:50 06/27/19 16:55 Temperature Temperature Source Pulse Rate 87 84 83 Pulse Rate from SpO2 Sensor 86 89 85 Pulse Rhythm Pulse Strength Respiratory Rate 19 21 20 Respiratory Effort / Characteristics Respiratory Depth Respiratory Pattern Blood Pressure 103/67 86/54 L 83/49 L Blood Pressure Mean 76 64 64 Pulse Oximetry 94 96 98 Oxygen Delivery Method Room Air Room Air Room Air Sepsis Recent Fever Within 48 Hours Sepsis Action Taken by Nursing 06/27/19 17:00 06/27/19 17:01 06/27/19 17:03 Temperature 36.5 C Temperature Source Oral Pulse Rate 84 85 84 Pulse Rate from SpO2 Sensor 85 85 84 Pulse Rhythm Regular Pulse Strength Normal Respiratory Rate 19 19 19 Respiratory Effort / Characteristics Non-Labored Spontaneous Respiratory Depth Normal Respiratory Pattern Regular Blood Pressure 84/50 L 79/38 L 92/51 L Blood Pressure Mean 62 51 62 Pulse Oximetry 98 98 99 Oxygen Delivery Method Room Air Room Air Room Air Sepsis Recent Fever Within 48 Hours No Sepsis Action Taken by Nursing No Action Required 06/27/19 17:15 06/27/19 17:30 06/27/19 17:31 Temperature Temperature Source Pulse Rate 89 84 83 Pulse Rate from SpO2 Sensor 83 82 85 Pulse Rhythm Pulse Strength Respiratory Rate 18 22 18 Respiratory Effort / Characteristics Respiratory Depth Respiratory Pattern Blood Pressure 89/62 L 97/60 L Blood Pressure Mean 67 73 Pulse Oximetry 91 100 99 Oxygen Delivery Method Sepsis Recent Fever Within 48 Hours Sepsis Action Taken by Nursing 06/27/19 17:52 06/27/19 18:00 06/27/19 18:01 Temperature Temperature Source Pulse Rate 87 83 82 Pulse Rate from SpO2 Sensor Pulse Rhythm Pulse Strength Respiratory Rate 19 19 19 Respiratory Effort / Characteristics Respiratory Depth Respiratory Pattern Blood Pressure 131/64 114/57 L Blood Pressure Mean 86 69 Pulse Oximetry Oxygen Delivery Method Sepsis Recent Fever Within 48 Hours Sepsis Action Taken by Nursing 06/27/19 18:02 06/27/19 18:15 06/27/19 18:30 Temperature Temperature Source Pulse Rate 84 83 Pulse Rate from SpO2 Sensor Pulse Rhythm Pulse Strength Respiratory Rate 16 18 Respiratory Effort / Characteristics Respiratory Depth Respiratory Pattern Blood Pressure 119/58 L 117/55 L Blood Pressure Mean 80 76 Pulse Oximetry Oxygen Delivery Method Room Air Sepsis Recent Fever Within 48 Hours Sepsis Action Taken by Nursing 06/27/19 18:31 06/27/19 18:45 06/27/19 19:00 Temperature Temperature Source Pulse Rate 85 83 83 Pulse Rate from SpO2 Sensor 83 83 Pulse Rhythm Pulse Strength Respiratory Rate 19 20 20 Respiratory Effort / Characteristics Respiratory Depth Respiratory Pattern Blood Pressure 118/60 120/60 Blood Pressure Mean 76 77 Pulse Oximetry 98 98 Oxygen Delivery Method Room Air Sepsis Recent Fever Within 48 Hours Sepsis Action Taken by Nursing 06/27/19 19:30 Temperature Temperature Source Pulse Rate 86 Pulse Rate from SpO2 Sensor 82 Pulse Rhythm Pulse Strength Respiratory Rate 19 Respiratory Effort / Characteristics Respiratory Depth Respiratory Pattern Blood Pressure 120/61 Blood Pressure Mean 76 Pulse Oximetry 98 Oxygen Delivery Method Room Air Sepsis Recent Fever Within 48 Hours Sepsis Action Taken by Nursing CONSTITUTIONAL/VITAL SIGNS: Reviewed / noted above. GENERAL: The patient is mostly unresponsive and does not respond verbally, however the patient does open his eyes to command and lift up his thumb. He will not verbalize anything or answer any questions. INTEGUMENTARY: Warm, dry, and [place]. HEAD: Normocephalic. EYES: without scleral icterus or trauma. ENT/OROPHARYNX: clear and dry. LYMPHADENOPATHY/NECK: Is supple without lymphadenopathy or meningismus. RESPIRATORY: Lungs clear and equal. CARDIOVASCULAR: Regular rate and rhythm. GI/ABDOMEN: Soft and nontender. No organomegaly or pulsatile mass. No rebound or guarding. Normal bowel sounds. EXTREMITIES: Warm and well perfused. BACK: No CVA tenderness. NEUROLOGICAL: The patient follows basic commands but otherwise is unable to follow any commands or carry on a conversation.. PSYCHIATRIC: Unable to assess. : The patient does have a Guy catheter in place. It appears to be grossly bloody. MUSCULOSKELETAL: Generalized weakness. Poor muscle tone . TRIAGE NURSING DOCUMENTATION REVIEWED. Procedures ABG Interpretation ABG Interpretation 1: ABG Results: Interpretation: metabolic acidosis (With adequate respiratory compensation.) Course Administered Medications Discontinued Medications Sodium Chloride (Nss 1000ml) 1,000 mls @ 999 mls/hr IV .Q1H1M ONE Stop: 06/27/19 17:42 Last Infusion: 06/27/19 18:13 Dose: 0 mls/hr Documented by: [id number] Admin: 06/27/19 17:11 Dose: 999 mls/hr Documented by: [id number] Sodium Chloride (Nss 1000ml) 2,000 mls @ 999 mls/hr IV .Q2H1M ONE Stop: 06/27/19 19:40 Last Admin: 06/27/19 18:00 Dose: 999 mls/hr Documented by: [id number] Cefepime HCl (Maxipime) 2,000 mg in 20 mls @ 5 mls/min IV NOW STA; Protocol Stop: 06/27/19 17:51 Last Admin: 06/27/19 18:00 Dose: 5 mls/min Documented by: [id number] Medical Decision Making Differential Diagnosis Differential includes acute cardiac dysrhythmia, microinfarction, CVA, TIA, dehydration, anemia, electrolyte disturbance, seizure, trauma, intracranial bleeding, acute vascular catastrophe, thoracic aortic dissection, PE, abdominal aortic aneurysm rupture, infection, hypoglycemia, overdose, trauma. Medical Records Attestation: I reviewed the patient's medical records. Home Medications Current Medication List: was personally reviewed by me Laboratory Data Attestation: I reviewed the patient's lab results. : 06/27/19 16:55 06/27/19 16:55 Lab Results 06/27/19 06/27/19 06/27/19 Range/Units 16:55 16:55 16:55 WBC 30.17 H* (4.8-10.8) K/uL RBC 3.29 L (4.7-6.1) M/uL Hgb 9.4 L (14.0-18.0) g/dL Hct 28.4 L (42-52) % MCV 86.3 (80-100) fL MCH 28.6 (25-34) pg MCHC 33.1 (32-36) g/dL RDW Std Deviation 50.7 H (36.4-46.3) fL RDW Coeff of So 16.0 H (11.5-14.5) % Plt Count 306 (130-400) K/uL MPV 10.2 (7.4-10.4) fL Immature Gran % (Auto) 0.5 % Neut % (Auto) 91.3 % Lymph % (Auto) 2.9 % [place] % (Auto) 5.2 % Eos % (Auto) 0.0 % Baso % (Auto) 0.1 % Immature Gran # (Auto) 0.15 H (0.00-0.02) K/uL Neut # (Auto) 27.54 H (1.4-6.5) K/uL Lymph # (Auto) 0.89 L (1.2-3.4) K/uL [place] # (Auto) 1.57 H (0.11-0.59) K/uL Eos # (Auto) 0.00 (0-0.5) K/uL Baso # (Auto) 0.02 (0-0.2) K/uL Acanthocytes (Spur) 1+ PT 13.5 H (9.0-12.0) Seconds INR 1.3 H (0.9-1.1) APTT 29.9 (21.0-31.0) Seconds PTT Ratio 1.1 ABG pH (7.35-7.45) ABG pCO2 (35-46) mmHg ABG pO2 (80-95) mmHg ABG HCO3 (19-24) mmol/L ABG O2 Saturation (90-95) % ABG Base Excess (-9-1.8) mEq/L [place] Test (Pos) Barometric Pressure mm/Hg Oxygen Given Sodium 139 (136-145) mmol/L Potassium 5.9 H (3.5-5.1) mmol/L Chloride 111 H (98-107) mmol/L Carbon Dioxide 23 (21-32) mmol/L Anion Gap 5.0 (3-11) BUN 108 H (7-18) mg/dl Creatinine 6.52 H* (0.6-1.4) mg/dl Est Cr Clr Drug Dosing Not Reportable Est GFR ( Amer) 8.6 Est GFR (Non-Af Amer) 7.4 BUN/Creatinine Ratio 16.5 (10-20) Glucose 114 H (70-99) mg/dl Lactate (0.4-2.0) mmol/L Calcium 8.4 L (8.5-10.1) mg/dl Magnesium 2.5 H (1.8-2.4) mg/dl Total Bilirubin 0.3 (0.2-1) mg/dl AST 246 H (15-37) U/L ALT 57 (12-78) U/L Alkaline Phosphatase 74 (45-117) U/L Troponin I 0.062 H* (0-0.045) ng/ml Total Protein 6.9 (6.4-8.2) gm/dl Albumin 2.3 L (3.4-5.0) gm/dl Globulin 4.6 H (2.5-4.0) gm/dl Albumin/Globulin Ratio 0.5 L (0.9-2) Urine Color Urine Appearance (Clear) Urine pH (4.5-7.5) Ur Specific [place] (1.000-1.030) Urine Protein (Negative) Urine Glucose (UA) (Negative) Urine Ketones (Negative) Urine Blood (Negative) Urine Nitrite (Negative) Urine Bilirubin (Negative) Urine Urobilinogen (Negative) Ur Leukocyte Esterase (Negative) Urine RBC (0-4) /hpf Urine WBC (0-5) /hpf Ur Epithelial Cells (0-5) /lpf Urine Bacteria (Negative) RBC Casts (0) /lpf Influenza Type A (PCR) (Neg) Influenza Type B (PCR) (Neg) 0306/27/19 06/27/19 Range/Units 17:10 17:23 17:26 WBC (4.8-10.8) K/uL RBC (4.7-6.1) M/uL Hgb (14.0-18.0) g/dL Hct (42-52) % MCV (80-100) fL MCH (25-34) pg MCHC (32-36) g/dL RDW Std Deviation (36.4-46.3) fL RDW Coeff of So (11.5-14.5) % Plt Count (130-400) K/uL MPV (7.4-10.4) fL Immature Gran % (Auto) % Neut % (Auto) % Lymph % (Auto) % [place] % (Auto) % Eos % (Auto) % Baso % (Auto) % Immature Gran # (Auto) (0.00-0.02) K/uL Neut # (Auto) (1.4-6.5) K/uL Lymph # (Auto) (1.2-3.4) K/uL [place] # (Auto) (0.11-0.59) K/uL Eos # (Auto) (0-0.5) K/uL Baso # (Auto) (0-0.2) K/uL Acanthocytes (Spur) PT (9.0-12.0) Seconds INR (0.9-1.1) APTT (21.0-31.0) Seconds PTT Ratio ABG pH 7.43 (7.35-7.45) ABG pCO2 30 L (35-46) mmHg ABG pO2 144 H (80-95) mmHg ABG HCO3 20 (19-24) mmol/L ABG O2 Saturation 99.1 H (90-95) % ABG Base Excess -4.0 (-9-1.8) mEq/L [place] Test POS (Pos) Barometric Pressure 733.1 mm/Hg Oxygen Given ROOM AIR Sodium (136-145) mmol/L Potassium (3.5-5.1) mmol/L Chloride (98-107) mmol/L Carbon Dioxide (21-32) mmol/L Anion Gap (3-11) BUN (7-18) mg/dl Creatinine (0.6-1.4) mg/dl Est Cr Clr Drug Dosing Est GFR ( Amer) Est GFR (Non-Af Amer) BUN/Creatinine Ratio (10-20) Glucose (70-99) mg/dl Lactate 2.0 (0.4-2.0) mmol/L Calcium (8.5-10.1) mg/dl Magnesium (1.8-2.4) mg/dl Total Bilirubin (0.2-1) mg/dl AST (15-37) U/L ALT (12-78) U/L Alkaline Phosphatase (45-117) U/L Troponin I (0-0.045) ng/ml Total Protein (6.4-8.2) gm/dl Albumin (3.4-5.0) gm/dl Globulin (2.5-4.0) gm/dl Albumin/Globulin Ratio (0.9-2) Urine Color Urine Appearance (Clear) Urine pH (4.5-7.5) Ur Specific [place] (1.000-1.030) Urine Protein (Negative) Urine Glucose (UA) (Negative) Urine Ketones (Negative) Urine Blood (Negative) Urine Nitrite (Negative) Urine Bilirubin (Negative) Urine Urobilinogen (Negative) Ur Leukocyte Esterase (Negative) Urine RBC (0-4) /hpf Urine WBC (0-5) /hpf Ur Epithelial Cells (0-5) /lpf Urine Bacteria (Negative) RBC Casts (0) /lpf Influenza Type A (PCR) Neg for Influ A (Neg) Influenza Type B (PCR) Neg for Influ B (Neg) 06/27/19 Range/Units 17:57 WBC (4.8-10.8) K/uL RBC (4.7-6.1) M/uL Hgb (14.0-18.0) g/dL Hct (42-52) % MCV (80-100) fL MCH (25-34) pg MCHC (32-36) g/dL RDW Std Deviation (36.4-46.3) fL RDW Coeff of So (11.5-14.5) % Plt Count (130-400) K/uL MPV (7.4-10.4) fL Immature Gran % (Auto) % Neut % (Auto) % Lymph % (Auto) % [place] % (Auto) % Eos % (Auto) % Baso % (Auto) % Immature Gran # (Auto) (0.00-0.02) K/uL Neut # (Auto) (1.4-6.5) K/uL Lymph # (Auto) (1.2-3.4) K/uL [place] # (Auto) (0.11-0.59) K/uL Eos # (Auto) (0-0.5) K/uL Baso # (Auto) (0-0.2) K/uL Acanthocytes (Spur) PT (9.0-12.0) Seconds INR (0.9-1.1) APTT (21.0-31.0) Seconds PTT Ratio ABG pH (7.35-7.45) ABG pCO2 (35-46) mmHg ABG pO2 (80-95) mmHg ABG HCO3 (19-24) mmol/L ABG O2 Saturation (90-95) % ABG Base Excess (-9-1.8) mEq/L [place] Test (Pos) Barometric Pressure mm/Hg Oxygen Given Sodium (136-145) mmol/L Potassium (3.5-5.1) mmol/L Chloride (98-107) mmol/L Carbon Dioxide (21-32) mmol/L Anion Gap (3-11) BUN (7-18) mg/dl Creatinine (0.6-1.4) mg/dl Est Cr Clr Drug Dosing Est GFR ( Amer) Est GFR (Non-Af Amer) BUN/Creatinine Ratio (10-20) Glucose (70-99) mg/dl Lactate (0.4-2.0) mmol/L Calcium (8.5-10.1) mg/dl Magnesium (1.8-2.4) mg/dl Total Bilirubin (0.2-1) mg/dl AST (15-37) U/L ALT (12-78) U/L Alkaline Phosphatase (45-117) U/L Troponin I (0-0.045) ng/ml Total Protein (6.4-8.2) gm/dl Albumin (3.4-5.0) gm/dl Globulin (2.5-4.0) gm/dl Albumin/Globulin Ratio (0.9-2) Urine Color Red Urine Appearance Turbid A (Clear) Urine pH (4.5-7.5) Ur Specific [place] 1.020 (1.000-1.030) Urine Protein (Negative) Urine Glucose (UA) (Negative) Urine Ketones (Negative) Urine Blood (Negative) Urine Nitrite (Negative) Urine Bilirubin (Negative) Urine Urobilinogen (Negative) Ur Leukocyte Esterase (Negative) Urine RBC >30 H (0-4) /hpf Urine WBC >30 H (0-5) /hpf Ur Epithelial Cells 0-5 (0-5) /lpf Urine Bacteria 2+ H (Negative) RBC Casts 1-5 H (0) /lpf Influenza Type A (PCR) (Neg) Influenza Type B (PCR) (Neg) Imaging Data Attestation: I personally reviewed and interpreted this imaging study as follows: Radiologist's Impression: CT head/brain wo con CLINICAL HISTORY: 79 years-old Male with ams. Acutely altered mental status with recent fall TECHNIQUE: Multiple axial CT images of the head were obtained without contrast. A dose lowering technique was utilized adhering to the principles of ALARA. CT DOSE: 1092.33 mGy.cm COMPARISON: Head CT 06/05/2019 FINDINGS: No acute intracranial hemorrhage, midline shift, intracranial mass, hydrocephalus, territorial ischemia or abnormal extra-axial collection. Age- related involutional changes. Patchy white matter hypodensities suggest chronic microvascular ischemic disease. Cerebral vascular calcifications are noted. Study is limited secondary to movement. The calvarium is intact. Trace left mastoid effusion. Right mastoid air cells a re clear. Paranasal sinuses are also clear. Soft tissues are unremarkable. Prior bilateral lens replacement. IMPRESSION: No acute intracranial abnormality or calvarial fracture. XR chest 1V portable HISTORY: 79 years-old Male SEPSIS acute sepsis with altered mental status COMPARISON: Chest radiograph 06/05/2019 TECHNIQUE: Portable AP view of the chest FINDINGS: Limited exam secondary to positioning. Cardiac silhouette is upper limits of normal in size. Calcified plaque of the thoracic aortic arch. Emphysema. Linear line overlying the lateral left hemithorax. No pleural effusion or overt pulmonary edema. Mild interstitial coarsening of the lung bases. No airspace consolidation typical for pneumonia. Calcifications of the carotid vasculature. Degenerative changes of the shoulders and spine. IMPRESSION: 1. Limited exam secondary to positioning. 2. Linear line of the lateral left hemithorax suggests skin fold with pneumothorax considered less likely. 3. Emphysema with chronic interstitial coarsening. ECG Data Attestation: I personally reviewed and interpreted this ECG as follows: Indication: weakness Rate (beats per minute): 92 Rhythm: normal sinus Findings: no PVC and no ST elevation Blood Pressure Blood Pressure Findings: Low blood pressure MDM Narrative This is a 79-year-old male who presents to the ED via EMS with a chief complaint of altered mental status. The patient has been found today at the local [facility] lethargic and not responding appropriately. Normally he is walking around the facility and interacting with people. He may have fallen overnight. There is no clear history. The patient's blood sugar by EMS was 107. They reported that his blood pressures been running low as well. The patient is unable to provide any history because he is mostly not responsive to verbal stimuli. He does wince to pain and he does follow basic commands like opening his eyes and holding up his thumb. No additional history is available at this time. The patient's prehospital blood sugar was 107. His vital signs have been showing some hypotension. He is afebrile. His exam reveals gross blood from the Guy catheter. His mucous membranes are very dry. The patient's white blood cell count is 30,000. Hemoglobin 9.4. Troponin is 0.062. BUN is 108 and creatinine is 6.5. Baseline creatinine is around 1. Flu swab was negative. CT scan of the brain was negative. ABG reveals a normal acid-base status with a PCO2 of 30 and a PO2 of 144. The patient was given 3 L of normal saline IV as well as IV cefepime. He will be seen by the hospitalist for further evaluation and care. I did speak with Dr. Sands from nephrology. She feels that the patient is okay to stay here and does not need emergent dialysis. Impression & Plan Acute uremia, AMS (altered mental status), Acute renal failure (ARF), Acute dehydration, Gross hematuria Critical Care Time Critical Care Time: Yes Total Critical Care Time: 35 I have personally spent 35 minutes of critical care time in the direct management of this patient. This includes bedside care, interpretation of diagnostic studies, and testing, discussion with consultants, patient, and family members, and other required patient management activities. This 35 minutes is in excess of all separately billable procedures. Discharge Plan Visit Data Chief Complaint: Altered Mental Status Stated Complaint: MENTAL STATUS CHANGE, HEMATURIA ED Provider: Mishock,Christo Discharge Problem: Acute uremia, AMS (altered mental status), Acute renal failure (ARF), Acute de hydration, Gross hematuria Patient Disposition: Being Evaluated by Hospitalist Forms Stand Alone Forms: [facility] Prescriptions Prescriptions: No Action lidocaine HCl 2 % Jelly 10 ml EXT Q6H PRN (Reason: pain at urinary cath site) Qty: 50 RF: 1 tamsulosin 0.4 mg Capsule 0.4 mg PO QAM@0800 RF: 0 acetaminophen [Tylenol] 325 mg Tablet 650 mg PO Q4 MDD 3G PRN (Reason: Fever Or Pain) RF: 0 perphenazine 2 mg Tablet 6 mg PO TID RF: 0 lisinopril 5 mg Tablet 5 mg PO QAM@0800 RF: 0 furosemide 20 mg Tablet 20 mg PO QAM@0800 RF: 0 loperamide [Imodium A-D] 2 mg Capsule 2 mg PO Q3H PRN (Reason: Diarrhea) RF: 0 polyethylene glycol 3350 [Miralax] 17 gram Powder In Packet 17 g PO DAILY PRN (Reason: Constipation) RF: 0 calcium carbonate [Calcium Antacid] 400 mg calcium (1,000 mg) Tablet,Chewable 500 mg PO Q4 PRN (Reason: Dyspepsia) RF: 0 simethicone 80 mg Tablet,Chewable 80 mg PO TID PRN (Reason: gas/bloating) RF: 0 Muscle Rub 15-10 % Cream 1 applic TOPICAL QID PRN (Reason: Pain) RF: 0 Cepacol Sore Throat (anand-men) 15-2.6 mg Lozenge 1 sheila PO Q4 PRN (Reason: Sore Throat) RF: 0 aspirin 81 mg Tablet,Delayed Release (Dr/Ec) 81 mg PO QAM@0800 RF: 0 fluphenazine decanoate 25 mg/mL Solution 25 mg IM MONTHLY RF: 0 mirtazapine 30 mg Tablet 30 mg PO HS@2000 RF: 0 benztropine 1 mg Tablet 1 mg PO BID RF: 0 docusate sodium 100 mg Tablet 100 mg PO BID RF: 0 Artificial Tears (PF) Dropperette 1 drp OPB BID RF: 0 memantine 10 mg Tablet 10 mg PO BID RF: 0 Calmoseptine 0.44-20.6 % Ointment 1 applic TOPICAL DAILY RF: 0 fluphenazine HCl 2.5 mg tablet 2.5 mg PO Q6H PRN (Reason: Mood Stabilizer) RF: 0 finasteride 5 mg Tablet 5 mg PO QAM@0800 RF: 0 multivitamin with iron Tablet 1 tab PO QAM@0800 RF: 0 Referrals Referrals: GWEN ORTIZ GENIE [Primary Care Provider] -
[2019-06-27 17:20] LABS: INR 1.3 (0.9-1.1); Partial Thromboplastin Ratio 1.1; Partial Thromboplastin Time 29.9 Seconds (21.0-31.0); Prothrombin Time 13.5 Seconds (9.0-12.0)
--- NOTE | 2019-06-27 17:25 | XRay Report ---
XR chest 1V portable HISTORY: 79 years-old Male SEPSIS acute sepsis with altered mental status COMPARISON: Chest radiograph 06/05/2019 TECHNIQUE: Portable AP view of the chest FINDINGS: Limited exam secondary to positioning. Cardiac silhouette is upper limits of normal in size. Calcifie d plaque of the thoracic aortic arch. Emphysema. Linear line overlying the lateral left hemithorax. N o pleural effusion or overt pulmonary edema. Mild interstitial coarsening of the lung bases. No airsp cecilia consolidation typical for pneumonia. Calcifications of the carotid vasculature. Degenerative stokes ges of the shoulders and spine. IMPRESSION: 1. Limited exam secondary to positioning. 2. Linear line of the lateral left hemithorax suggests skin fold with pneumothorax considered less li joaquín. 3. Emphysema with chronic interstitial coarsening. ACT 112: Negative or not required by law. The above report was generated using voice recognition software. It may contain grammatical, syntax o r spelling errors. Electronically signed by: Ezekiel Horner M.D. 06/27/2019 5:24 PM
[2019-06-27 17:38] LABS: Hematocrit (blood only) 28.4 % (42-52); Hemoglobin 9.4 g/dL (14.0-18.0); Mean Corpuscular Hemoglobin 28.6 pg (25-34); Mean Corpuscular Hgb Conc 33.1 g/dL (32-36); Mean Corpuscular Volume 86.3 fL (80-100); Mean Platelet Volume 10.2 fL (7.4-10.4); Platelet Count 306 K/uL (130-400); RDW Standard Deviation 50.7 fL (36.4-46.3); Red Blood Count 3.29 M/uL (4.7-6.1); White Blood Count 30.17 K/uL (4.8-10.8)
[2019-06-27 17:39] LABS: Acanthocytes 1+; Basophils # (auto) 0.02 K/uL (0-0.2); Basophils % (auto) 0.1 %; Immature Granulocytes # (auto) 0.15 K/uL (0.00-0.02); Immature Granulocytes % (auto) 0.5 %; Lymphocytes # (auto) 0.89 K/uL (1.2-3.4); Lymphocytes % (auto) 2.9 %; Monocytes # (auto) 1.57 K/uL (0.11-0.59); Monocytes % (auto) 5.2 %; Neutrophils # (auto) 27.54 K/uL (1.4-6.5); Neutrophils % (auto) 91.3 %
[2019-06-27] MEDS ORDERED: SODIUM CHLORIDE 0.9% 1000ML 2,000 ML IV ONE (17:40)
[2019-06-27] MEDS ORDERED: cefTRIAXone SODIUM 2,000 MG/70 ML BAG IV STA (17:44)
[2019-06-27 17:45] LABS: Allen Test POS (Pos); HCO3 ABG 20 mmol/L (19-24); Oxygen Saturation ABG 99.1 % (90-95); PCO2 ABG 30 mmHg (35-46); PO2 ABG 144 mmHg (80-95); pH ABG 7.43 (7.35-7.45)
[2019-06-27 17:47] LABS: Alanine Aminotransferase 57 U/L (12-78); Albumin Globulin Ratio 0.5 (0.9-2); Albumin Level 2.3 gm/dl (3.4-5.0); Alkaline Phosphatase 74 U/L (45-117); Aspartate Aminotransferase 246 U/L (15-37); BUN Creatinine Ratio 16.5 (10-20); Bilirubin,Total 0.3 mg/dl (0.2-1); Blood Urea Nitrogen 108 mg/dl (7-18); Calcium 8.4 mg/dl (8.5-10.1); Carbon Dioxide 23 mmol/L (21-32); Chloride 111 mmol/L (98-107); Est GFR (African American) 8.6; Est GFR (Non-African American) 7.4; Globulin 4.6 gm/dl (2.5-4.0); Glucose 114 mg/dl (70-99); Magnesium 2.5 mg/dl (1.8-2.4); Potassium 5.9 mmol/L (3.5-5.1); Sodium 139 mmol/L (136-145); Total Protein 6.9 gm/dl (6.4-8.2); Troponin I 0.062 ng/ml (0-0.045)
[2019-06-27] MEDS ORDERED: CEFEPIME 2,000 MG/20 ML VIAL IV STA (17:48)
--- NOTE | 2019-06-27 17:55 | CT Scan Report ---
CT head/brain wo con CLINICAL HISTORY: 79 years-old Male with ams. Acutely altered mental status with recent fall TECHNIQUE: Multiple axial CT images of the head were obtained without contrast. A dose lowering tech nique was utilized adhering to the principles of ALARA. CT DOSE: 1092.33 mGy.cm COMPARISON: Head CT 06/05/2019 FINDINGS: No acute intracranial hemorrhage, midline shift, intracranial mass, hydrocephalus, territorial ischem ia or abnormal extra-axial collection. Age-related involutional changes. Patchy white matter hypodens ities suggest chronic microvascular ischemic disease. Cerebral vascular calcifications are noted. Darek dy is limited secondary to movement. The calvarium is intact. Trace left mastoid effusion. Right mastoid air cells are clear. Paranasal s inuses are also clear. Soft tissues are unremarkable. Prior bilateral lens replacement. IMPRESSION: No acute intracranial abnormality or calvarial fracture. ACT 112: Negative or not required by law. The above report was generated using voice recognition software. It may contain grammatical, syntax o r spelling errors. Electronically signed by: Ezekiel Horner M.D. 06/27/2019 5:54 PM
[2019-06-27 18:12] LABS: Influenza A virus by PCR Neg for Influ A (Neg); Influenza B virus by PCR Neg for Influ B (Neg)
[2019-06-27 19:24] LABS: Appearance Urine Turbid (Clear); Color Urine Red; Sulfosalicylic Acid Urine Positive (Negative)
[2019-06-27 19:26] LABS: RBC Urine >30 /hpf (0-4)
--- NOTE | 2019-06-27 19:31 | History & Physical Report ---
Date of Service June 27, 2019 Assessment & Plan (1) Severe sepsis: (2) UTI (urinary tract infection): (3) Hematuria: -Admit to ICU -Patient presenting from [facility] for evaluation of altered mental status -In the ED, found to be minimally responsive, hypotensive, Guy draining gross ly bloody urine -On presentation: Hypotensive, afebrile, WBC 30K, creatinine 6.5, lactic acid WNL -BP improved after 30 mL/kg fluid resuscitation -Has chronic Guy in place due to chronic urinary retention from BPH. Recent urine cultures have grown Proteus -Received IV cefepime in the ED; further antibiotics as per discretion of ICU -Given acute renal failure and hematuria, check CT ABD/pelvis -Follow urine and blood cultures -Case was discussed with Jose Salgado PA-C (4) Acute renal failure: (5) Hyperkalemia: -Creatinine 6.5, K+ 5.9 -Likely prerenal in nature due to dehydration/sepsis -No EKG changes, no acidosis -Guy is in place and is draining bloody urine, check CT ABD/pelvis to rule out other obstructive causes -IVF, follow serial BMP -Nephrology consult, case discussed with Dr. Kirby (6) Metabolic encephalopathy: -Likely multifactorial secondary to above, sepsis and/or uremia -Head CT negative for acute findings (7) Abnormal chest x-ray: -CXR showing linear line of the lateral left hemithorax suggests skin fold with pneumothorax considered less likely -Follow-up CT chest -Saturating well on room air (8) Elevated troponin: -Mild troponin elevation 0.062 -Likely due to demand ischemia in the setting of acute illness -Serial troponins, if significant elevation consider further work-up (9) Anemia: -Baseline hemoglobin 9-10 -9.4 today -Follow CBC (10) H/O: CVA (cerebrovascular accident): -Hold aspirin due to hematuria (11) Schizoaffective disorder: -Typically managed on benztropine, fluphenazine, memantine, mirtazapine, perphenazine -will hold for now due to reduced consciousness (12) HTN (hypertension): -Hypotensive on presentation -Hold lisinopril and furosemide (13) Chronic indwelling Guy catheter: -Has chronic Guy in place -On finasteride and tamsulosin at home, holding for now due to reduced consciousness and inability take p.o. (14) DVT prophylaxis: -SCDs due to hematuria History of Present Illness Chief Complaint: Altered mental status Primary Care Provider: SITA PLATT 79-year-old male who presents the ED from [facility] for evaluation of altered mental status. History is currently unobtainable from the patient. I attempted to call the staff at [facility] however nursing staff is unavailable this evening. Patient was recently admitted to [facility] 06/04 through 06/08 and was treated for pneumonia and possible UTI. Patient was discharged on doxycycline and Augmentin. According to ED notes, patient was found today to be very lethargic and not responsive. The patient typically is ambulatory around the facility and interacts with people. There is a question of a fall. The history is not clear. Upon arrival to the ED, patient found to be hypotensive. Labs show WBC 30K, creatinine 6.5, potassium 5.9. Patient was given IVF and IV cefepime. Allergies Allergy/AdvReac Type Severity Reaction Status Date / Time olanzapine Allergy Mild "IT DOES Verified 06/27/19 17:40 NOT WORK" risperidone Allergy Unknown UNKNOWN Verified 06/27/19 17:40 Influenza Virus Vaccines AdvReac PAIN AT Verified 06/27/19 17:40 INJECTION SITE Tricyclic Antidepressants Allergy Unknown . Uncoded 06/27/19 17:40 Home Medications Home Medications Medication Instructions Recorded Confirmed Type Artificial Tears (PF) 1 drp OPB BID 11/22/18 06/27/19 History Calmoseptine 1 applic TOPICAL DAILY 11/22/18 06/27/19 History aspirin 81 mg PO QAM@0800 11/22/18 06/27/19 History benztropine 1 mg PO BID 11/22/18 06/27/19 History docusate sodium 100 mg PO BID 11/22/18 06/27/19 History fluphenazine decanoate 25 mg IM MONTHLY 11/22/18 06/27/19 History memantine 10 mg PO BID 11/22/18 06/27/19 History mirtazapine 30 mg PO HS@2000 11/22/18 06/27/19 History lidocaine HCl 10 ml EXT Q6H PRN #50 ml 02/24/19 06/27/19 Rx acetaminophen [Tylenol] 650 mg PO Q4 PRN MDD 3G 03/15/19 06/27/19 History tamsulosin 0.4 mg PO QAM@0800 03/15/19 06/27/19 History finasteride 5 mg PO QAM@0800 05/07/19 06/27/19 History fluphenazine HCl 2.5 mg PO Q6H PRN 05/07/19 06/27/19 History multivitamin with iron 1 tab PO QAM@0800 05/07/19 06/27/19 History furosemide 20 mg PO QAM@0800 06/05/19 06/27/19 History lisinopril 5 mg PO QAM@0800 06/05/19 06/27/19 History perphenazine 6 mg PO TID 06/05/19 06/27/19 History benzocaine-menthol [Cepacol Sore 1 sheila PO Q4 PRN 06/27/19 06/27/19 History Throat (anand-men)] calcium carbonate [Calcium Antacid] 500 mg PO Q4 PRN 06/27/19 06/27/19 History loperamide [Imodium A-D] 2 mg PO Q3H PRN 06/27/19 06/27/19 History methyl salicylate-menthol [Muscle 1 applic TOPICAL QID PRN 06/27/19 06/27/19 History Rub] polyethylene glycol 3350 [Miralax] 17 g PO DAILY PRN 06/27/19 06/27/19 History simethicone 80 mg PO TID PRN 06/27/19 06/27/19 History Past Med/Surg History Medical History Anemia Anxiety BPH loc w urin obs/LUTS CKD (chronic kidney disease), stage III Dementia (Chronic) Dysphagia (Chronic) following CVA H/O: CVA (cerebrovascular accident) (Chronic) Hemangioma of lip (Inactive) HTN (hypertension) (Chronic) Indwelling Guy catheter present Muscle weakness (generalized) Pulmonary nodule Schizoaffective disorder (Chronic) Sepsis due to Pseudomonas March 2019 Urinary retention Urinary retention due to benign prostatic hyperplasia (Chronic) Surgical History Hx of cataract surgery (Chronic) S/P tonsillectomy (Chronic) Family History Other Hypertension Social History Preferred Language: Citizen Of [place] Communication Ability: Effective Equipment Maintenance Tech Required: No Beliefs That Will Affect Care: None marital status: Single Current Living Situation: Assisted Current Living Situation Comment: [facility] Feels Safe at Home: Yes Smoking Status: Unknown if ever smoked Hx Alcohol Use: No Hx Substance Use: No Review of Systems Review of Systems: Unobtainable due to reduced consciousness Physical Exam Constitutional: + ill appearing and + lethargic (Minimally responsive) Eyes: PERRL, conjunctivae normal, anicteric sclerae ENMT: Ears: no external ear abnormality Nose: no external nose abnormality Mouth: + lip abnormality (Right upper lip swollen, consistent with hemangioma) and + dry oral mucous membranes Respiratory: normal respiratory effort, lungs clear to auscultation Cardiovascular: Rate/Rhythm: regular rate and regular rhythm Vessels: normal peripheral pulses Extremities: no edema Gastrointestinal (Abdomen): normal bowel sounds, soft, nontender, no h epatosplenomegaly Musculoskeletal: Extremities: no cyanosis and no clubbing Strength testing unable to be performed at this time Skin: no rashes, warm and dry Neurologic: Minimally responsive to loud verbal and tactile stimuli Psychiatric: Orientation: + not alert and + not oriented x 3 Genitourinary: Guy in place draining grossly bloody urine Results & Data Vital Signs (Past 12 Hours) Vital Signs Temp Pulse Resp BP Pulse Ox 06/27/19 18:45 83 20 118/60 98 06/27/19 18:31 85 19 06/27/19 18:30 83 18 117/55 L 06/27/19 18:15 84 16 119/58 L 06/27/19 18:01 82 19 06/27/19 18:00 83 19 114/57 L 06/27/19 17:52 87 19 131/64 06/27/19 17:31 83 18 99 06/27/19 17:30 84 22 97/60 L 100 06/27/19 17:15 89 18 89/62 L 91 06/27/19 17:03 84 19 92/51 L 99 06/27/19 17:01 36.5 C 85 19 79/38 L 98 06/27/19 17:00 84 19 84/50 L 98 06/27/19 16:55 83 20 83/49 L 98 06/27/19 16:50 84 21 86/54 L 96 06/27/19 16:45 87 19 103/67 94 06/27/19 16:41 87 20 104/51 L 06/27/19 16:36 91 H 25 H 94/47 L 06/27/19 16:34 89 20 134/51 L 06/27/19 16:30 91 H 24 06/27/19 16:28 92 H 22 06/27/19 16:25 21 95/66 L Laboratory Results Short CBC 06/27/19 06/27/19 Range/Units 16:55 16:55 WBC 30.17 H* (4.8-10.8) K/uL Hgb 9.4 L (14.0-18.0) g/dL Hct 28.4 L (42-52) % Plt Count 306 (130-400) K/uL Troponin I 0.062 H* (0-0.045) ng/ml BMP 06/27/19 16:55 Sodium 139 Potassium 5.9 H Chloride 111 H Carbon Dioxide 23 BUN 108 H Creatinine 6.52 H* Glucose 114 H Calcium 8.4 L Cardiac Enzymes 06/27/19 Range/Units 16:55 Troponin I 0.062 H* (0-0.045) ng/ml Liver Function 06/27/19 Range/Units 16:55 Total Bilirubin 0.3 (0.2-1) mg/dl AST 246 H (15-37) U/L ALT 57 (12-78) U/L Alkaline Phosphatase 74 (45-117) U/L Albumin 2.3 L (3.4-5.0) gm/dl Urine 06/27/19 Range/Units 17:57 Urine Color Red Urine Appearance Turbid A (Clear) Urine pH (4.5-7.5) Ur Specific Luck 1.020 (1.000-1.030) Urine Protein (Negative) Urine Glucose (UA) (Negative) Diagnostic Findings HEAD CT IMPRESSION: No acute intracranial abnormality or calvarial fracture. CXR IMPRESSION: 1. Limited exam secondary to positioning. 2. Linear line of the lateral left hemithorax suggests skin fold with pneumothorax considered less likely. 3. Emphysema with chronic interstitial coarsening. Code Status & VTE Plan Code Status Patient is a full code as per POLST form sent with him. VTE Prophylaxis Plan VTE Prophylaxis will be ordered: Yes Supervising Physician Co-Signing Physician Notes Care coordinated with Jessica Arreola. Agree with above note. Patient seen and examined. Please refer to her notes for full details. Vital signs reviewed. Physical exam: General exam: Lethargic CVS: S1 and S2 heard, tachycardia, no murmurs. RS: Clear to auscultation, no wheezing or crackles. ABD: Soft, bowel sounds present, nontender, no distention. SCHOOL HEALTH ASSISTANT: Drowsy, not responsive to verbal stimuli EXT: No edema, no erythema. Labs: Reviewed. Assessment and plan: 79[place] who was recently in hospital and treated for pneumonia and uti was brought in because of Lethargy and found to be in severe sepsis with elevated WBC, hematuria,Possible UTI and possible gall bladder disease and Edy. Severe sepsis UTI Ct abd/pelvis and gall bladder US distended gall bladder . recommends HIDA scan on iv abx cefepime, flagyl and vanco appreciate critical care help Surgery consult close monitor Edy Hyperkalemia possible pyelonephritis on fluids avoid nephrotoxic agents nephrology consulted. Other diagnosis and plan of care as per [facility]. Renaldo huang MD. (1) Schizoaffective disorder Schizoaffective disorder type: unspecified Qualified Code(s): F25.9 - Schizoaffective disorder, unspecified
[2019-06-27 19:32] LABS: Epithelial Cell Urine 0-5 /lpf (0-5)
[2019-06-27 19:33] LABS: Bacteria Urine 2+ (Negative); WBC Urine >30 /hpf (0-5)
[2019-06-27] MEDS ORDERED: ICU PROTOCOL FOR HYPERGLYCEMIA PRN ×2 (20:41→20:47)
--- NOTE | 2019-06-27 20:51 | Critical Care Consultation ---
Date of Consultation June 27, 2019 Assessment & Plan (1) Admitted to intensive care unit: Reason Critically Ill: 79-year-old male with severe sepsis from likely urinary source requiring close hemodynamic monitoring status post resuscitative efforts with crystalloid solution requiring continued evaluation for ongoing sepsis evaluation and work-up. NEURO - * CAM ICU: POSITIVE * Altered mental status: * CT head without acute findings. * Likely metabolic encephalopathy in the setting of severe sepsis. * Will continue to monitor for improvements with treatment. * Extensive psych history: * Questioning component of tardive dyskinesia. On review of patient's medications, he does take Cogentin twice daily. * Patient does appear to be having odd contractures with any discomfort. Will schedule Cogentin IV. * Likely contributing to patient's rhabdomyolysis. CARDIAC/VASCULAR - * Elevated troponin: * Likely demand in nature without acute EKG findings to suggest ischemia. * Patient presenting with hypotension and COLT. * Trend troponins. * EKG: NSR@90bpm. No ST/T-wave changes. QTc 442ms. * Monitor on telemetry. RESPIRATORY - * Recent history of pneumonia with prior admission. * Chest x-ray without acute findings. * Will follow-up with CT for possible source of infection as we have CT in the abdomen pelvis as well. GI/NUTRITION - * N.p.o. * Prophylaxis: Famotidine * Biliary sludge: * Noted on CT. * Follow-up with ultrasound. * No apparent cholecystitis. * Patient currently covered with antibiotics. RENAL/LYTES - * Acute renal failure on chronic kidney disease: * Clinically, the patient is volume down. * Will continue with aggressive rehydration. * Patient is making urine which is certainly encouraging. * Per nephrology, no need for emergent hemodialysis as he is making urine and remainder of his electrolytes are within normal limits. * Hyperkalemia: * Without acute EKG findings otherwise. * Patient receiving large amounts of fluid resuscitation. * Likely secondary to cell lysis with underlying rhabdomyolysis. * Will hold off on aggressive treatment at this time as the patient is making urine as well without acute concerning findings otherwise. * Rhabdomyolysis: * Question if secondary to clenching/contracturing motion of the upper extremities. I do feel that this is more of a psychiatric component with possible underlying tardive dyskinesia. * I am unable to appreciate any focal areas of muscle distribution which appear to contribute to compartment issue. * Continue with aggressive hydration. * Trend CPK. * IVF: LR at 150 mL/hr. - * UTI: * Chronic indwelling Guy catheter from likely source. * Aggressive antibiotics. * Moderate hematuria. * History of hypospadias. * Guy in place - Strict I&Os. ENDO - * No history of diabetes or thyroid disease. * BSGs per unit protocol. ISS --> gtt per unit policy. HEME - * Significant leukocytosis: * Representing response to sepsis. * Anemia: * Continue to monitor in the setting of aggressive fluid hydration. ID - * Severe sepsis from urinary source: * Patient responding well to crystalloid resuscitation at this time. * Pressors as needed. * Initially treated with Rocephin followed by cefepime. * As the CT of the abdomen pelvis demonstrates possible biliary sludge with need for evaluation from possible biliary source, will add Flagyl in addition to the received dose of cefepime in the emergency department. Will broaden to cover MRSA with vancomycin with recent hospitalization. * Blood cultures pending. * Urine culture pending. * Procalcitonin ordered. Procalcitonin greater than 200. * Elevated lactate. Will trend. LINES/IV ACCESS - * PIVs x1 * 18-gauge endurance catheter to the RIGHT upper extremity * Guy catheter DVT PROPHYLAXIS - * Will hold in setting of montez hematuria. * SCDs I have personally spent 45 minutes of critical care time in the direct management of this patient. This is a life/limb threatening event. This includes time spent evaluating patient, direct bedside care, chart review, placing orders, interpretation of diagnostic studies, discussion with consultants, patient, and family members, as well as other required patient management activities. This time is exclusive of all separately billable procedures, and teaching time and separate from and in addition to any other critical care service time. Thank you for allowing us to participate in the care of this patient. Please refer to my attending physician's documentation for any further recommendations. (2) Rhabdomyolysis: (3) Hematuria: (4) UTI (urinary tract infection): (5) Elevated troponin: (6) Hyperkalemia: (7) Severe sepsis: (8) Metabolic encephalopathy: (9) Chronic indwelling Guy catheter: (10) Schizoaffective disorder: (11) HTN (hypertension): (12) Dementia: Supervising Physician Co-Signing Physician Notes Discussed with critical care ARNOLD. Agree with assessment and plan as noted. Please see my progress note from today for additional details. History of Present Illness Attending Physician: Renaldo Garcia MD History of Present Illness Patient is a 79-year-old male with a significant past medical history of urinary retention, schizoaffective disorder, chronic indwelling Guy catheter, hypertension, history of CVA, CKD 3, and anxiety who presented to the emergency department his [facility] with altered mental status. Patient had recent hospitalization earlier this month with pneumonia and possible UTI. Patient has been on antibiotics in the outpatient. Patient was reported to be lethargic and hypotensive. Concerns for sepsis with possible requirement for hemodynamic adjuncts. Allergies Allergy/AdvReac Type Severity Reaction Status Date / Time olanzapine Allergy Mild "IT DOES Verified 06/27/19 17:40 NOT WORK" risperidone Allergy Unknown UNKNOWN Verified 06/27/19 17:40 Influenza Virus Vaccines AdvReac PAIN AT Verified 06/27/19 17:40 INJECTION SITE Tricyclic Antidepressants Allergy Unknown . Uncoded 06/27/19 17:40 Home Medications Home Medications Medication Instructions Recorded Confirmed Type Artificial Tears (PF) 1 drp OPB BID 11/22/18 06/27/19 History Calmoseptine 1 applic TOPICAL DAILY 11/22/18 06/27/19 History aspirin 81 mg PO QAM@0800 11/22/18 06/27/19 History benztropine 1 mg PO BID 11/22/18 06/27/19 History docusate sodium 100 mg PO BID 11/22/18 06/27/19 History fluphenazine decanoate 25 mg IM MONTHLY 11/22/18 06/27/19 History memantine 10 mg PO BID 11/22/18 06/27/19 History mirtazapine 30 mg PO HS@199911/22/18 06/27/19 History lidocaine HCl 10 ml EXT Q6H PRN #50 ml 02/24/19 06/27/19 Rx acetaminophen [Tylenol] 650 mg PO Q4 PRN MDD 3G 03/15/19 06/27/19 History tamsulosin 0.4 mg PO QAM@0800 03/15/19 06/27/19 History finasteride 5 mg PO QAM@0800 05/07/19 06/27/19 History fluphenazine HCl 2.5 mg PO Q6H PRN 05/07/19 06/27/19 History multivitamin with iron 1 tab PO QAM@0800 05/07/19 06/27/19 History furosemide 20 mg PO QAM@0800 06/05/19 06/27/19 History lisinopril 5 mg PO QAM@0800 06/05/19 06/27/19 History perphenazine 6 mg PO TID 06/05/19 06/27/19 History benzocaine-menthol [Cepacol Sore 1 sheila PO Q4 PRN 06/27/19 06/27/19 History Throat (anand-men)] calcium carbonate [Calcium Antacid] 500 mg PO Q4 PRN 06/27/19 06/27/19 History loperamide [Imodium A-D] 2 mg PO Q3H PRN 06/27/19 06/27/19 History methyl salicylate-menthol [Muscle 1 applic TOPICAL QID PRN 06/27/19 06/27/19 History Rub] polyethylene glycol 3350 [Miralax] 17 g PO DAILY PRN 06/27/19 06/27/19 History simethicone 80 mg PO TID PRN 06/27/19 06/27/19 History Patient History Medical History Anemia Anxiety BPH loc w urin obs/LUTS CKD (chronic kidney disease), stage III Dementia (Chronic) Dysphagia (Chronic) following CVA H/O: CVA (cerebrovascular accident) (Chronic) Hemangioma of lip (Inactive) HTN (hypertension) (Chronic) Indwelling Guy catheter present Muscle weakness (generalized) Pulmonary nodule Schizoaffective disorder (Chronic) Sepsis due to Pseudomonas March 2019 Urinary retention Urinary retention due to benign prostatic hyperplasia (Chronic) Surgical History Hx of cataract surgery (Chronic) S/P tonsillectomy (Chronic) Family History Other Hypertension Social History Preferred Language: Amharic Communication Ability: Effective Talent Program Manager Required: No Beliefs That Will Affect Care: None marital status: Single Current Living Situation: Detention Current Living Situation Comment: [facility] Feels Safe at Home: Yes Smoking Status: Unknown if ever smoked Hx Alcohol Use: No Hx Substance Use: No Review of Systems Review of Systems: Unobtainable due to cognitive status Physical Exam Physical Exam: VITAL SIGNS - Vital signs and nursing notes were reviewed. GENERAL - 79-year-old male appearing his stated age who is in no acute distress. Altered and mushtaq with the bilateral upper extremities to any movement. SKIN - Without rashes. HEAD - NC/AT. EYES - PERRL bilaterally. Sclera anicteric. EARS - No deformities of external structures noted on gross examination bila terally. NOSE - Midline and without cyanosis. MOUTH/OROPHARYNX - Hemangioma to the RIGHT upper lip. Without perioral cyanosis. Buccal mucosa pink and Dry. Edentulous. NECK - Limited ROM. LUNGS - Chest wall symmetric without accessory muscle use, intercostals retractions, or central cyanosis. Normal vesicular breath sounds CTA B/L. No wheezes, rales, or rhonchi appreciated. CARDIAC - RRR with S1/S2. No murmur, rubs, or gallops appreciated. ABDOMEN - Abdominal contour flat without pulsations or visible masses. BS normoactive all four quadrants. No tenderness, palpable masses, hepatosplenomega ly, or ascites noted. EXTREMITIES - No clubbing or peripheral cyanosis. No pretibial edema present. +3/5 radial and dorsalis pedis pulses palpated throughout. +5/5 strength noted in UE/LE bilaterally. NEUROLOGIC -no focal neurological deficits appreciated. Strength equal bilaterally. Patient unable to complete thorough exam secondary to mental status. Patient does withdraw to painful stimuli. He does clench his upper extremities with any discomfort or range of motion exercises of the upper extremities. Moans in pain. Results & Data ([facility]) Vital Signs (Past 12 Hours) Vital Signs Temp Pulse Resp BP Pulse Ox 06/27/19 19:30 86 19 120/61 98 06/27/19 19:00 83 20 120/60 98 06/27/19 18:45 83 20 118/60 98 06/27/19 18:31 85 19 06/27/19 18:30 83 18 117/55 L 06/27/19 18:15 84 16 119/58 L 06/27/19 18:01 82 19 06/27/19 18:00 83 19 114/57 L 06/27/19 17:52 87 19 131/64 06/27/19 17:31 83 18 99 06/27/19 17:30 84 22 97/60 L 100 06/27/19 17:15 89 18 89/62 L 91 06/27/19 17:03 84 19 92/51 L 99 06/27/19 17:01 36.5 C 85 19 79/38 L 98 06/27/19 17:00 84 19 84/50 L 98 06/27/19 16:55 83 20 83/49 L 98 06/27/19 16:50 84 21 86/54 L 96 06/27/19 16:45 87 19 103/67 94 06/27/19 16:41 87 20 104/51 L 06/27/19 16:36 91 H 25 H 94/47 L 06/27/19 16:34 89 20 134/51 L 06/27/19 16:30 91 H 24 06/27/19 16:28 92 H 22 06/27/19 16:25 21 95/66 L Coding Level of Care Code Critical Care 1st 30-74 mins Diagnoses Admitted to intensive care unit Z78.9 Rhabdomyolysis M62.82 Hematuria R31.9 UTI (urinary tract infection) N39.0 Elevated troponin R79.89 Hyperkalemia E87.5 Severe sepsis A41.9; R65.20 Metabolic encephalopathy G93.41 Chronic indwelling Guy catheter Z96.0 Schizoaffective disorder F25.9 Schizoaffective disorder type: unspecified HTN (hypertension) I10 Dementia F03.90 Time Spent (min) 45 (1) Schizoaffective disorder Schizoaffective disorder type: unspecified Qualified Code(s): F25.9 - Schizoaffective disorder, unspecified
--- NOTE | 2019-06-27 21:10 | CT Scan Report ---
CT chest wo con, CT abd pelvis wo con CT DOSE: 1069.43 mGy.cm CLINICAL HISTORY: 79 years-old Male with sepsis. TECHNIQUE: Multiaxial CT images of the chest, abdomen and pelvis were performed without contrast. A dose lowering technique was utilized adhering to the principles of ALARA. COMPARISON: CT abdomen and pelvis 06/05/2019, chest CT 02/08/2019. FINDINGS: Study is limited secondary to positioning, motion artifact and also lack of contrast. CT CHEST: Heterogeneous thyroid. No pathologically enlarged lymph nodes. Moderate cardiomegaly. Trace pericardi al effusion. Coronary artery and papillary muscle calcifications. Mild fusiform dilation of the ascen ding thoracic aorta, 4.0 x 4.1 cm with extensive calcified plaque. Trace right pleural effusion. Mild emphysema. No pneumothorax. Patchy groundglass opacities of the left lung base with 7 mm nodular opa city of the left lower lobe, image 151 series 6, new from 02/08/2019. Overall, the left lung base opac ities have improved from 02/05/2020. Subsegmental dependent consolidation of the right lower lobe with mild adjacent groundglass densities. Central airways appear patent. No overt pulmonary edema. Mild body wall edema. Degenerative changes of the shoulders and spine. Ill-defined sclerosis involves the posterolateral aspect of the left eighth rib on image 163 series 6 is new from 02/08/2019. Subacu te healing slightly displaced fractures of the posterior right 11th and 12th ribs are new from 019, unchanged from 06/05/2019. No acute compression deformity. CT ABDOMEN/PELVIS: No appreciable pneumatosis or pneumoperitoneum. Limited evaluation of the solid abdominal organs with out the use of IV contrast. Within the limitations of the exam the spleen is unremarkable. Thickening of the adrenal glands suggests hyperplasia. Indeterminate soft tissue 2.2 cm lesion of the left adre nal gland , Unchanged. Unremarkable appearance of the liver. Contracted gallbladder with cholelithiasis. No elisha reciable gallbladder wall thickening or definite biliary ductal dilation. Nonspecific left greater than right perinephric stranding has mildly progressed from comparison. No s ignificant obstructive uropathy, renal or ureteral calculi. 10 mm hypodense focus of the interpolar r ight kidney suggest probable cyst, incompletely characterized. Guy catheter is noted within a decom pressed urinary bladder which demonstrates wall thickening with perivesicular stranding. Foci of air in the bladder is likely secondary to instrumentation. Layering hyperdense material is noted within t he dependent bladder near the right ureterovesicular junction. Prostamegaly. Extensive calcified plaq ue of the abdominal aorta with fusiform infrarenal dilation, 3.1 x 2.6 cm. Extensive calcified plaque also noted within the iliac arteries. No definite adenopathy. No bowel obstruction. Rectal wall thickening with perirectal stranding. Moderate fecal retention of t he rectum, ascending and transverse colon. Trace abdominopelvic ascites. Tubular structure of the abd ominal right lower quadrant is suggestive of a noninflamed appendix. Mild generalized body wall edema . Demineralized appearance of the bones. Degenerative changes of the hips, pelvis and spine. IMPRESSION: 1. Limited exam as above. 2. Trace right pleural effusion with right lung base opacities suggestive of probable atelectasis. De creased opacities of the left lung base are suggestive of resolving pneumonitis, improved from 06/05/19 20. 3. Distended gallbladder with cholelithiasis. This finding could be correlated with ultrasound to exc lude acute cholecystitis. 4. Moderate fecal retention. Wall thickening of the rectum with perirectal stranding may reflect asso ciated stercoral proctitis. 5. No bowel obstruction. 6. Prostamegaly with urinary bladder wall thickening suggestive of chronic bladder outlet obstruction . Guy catheter is in place with dependent layering hemorrhage within the urinary bladder lumen. Add itionally, there is progressively worsened left greater than right perinephric stranding. Correlate w ith urinalysis. 7. Healing subacute minimally displaced fractures of the right posterior 11th and 12th ribs. 8. Additional findings as above. ACT 112: Negative or not required by law. Electronically signed by: Ezekiel Horner M.D. 06/27/2019 9:09 PM
[2019-06-27 21:13] LABS: Hematocrit (blood only) 28.6 % (42-52); Hemoglobin 9.3 g/dL (14.0-18.0); Mean Corpuscular Hemoglobin 28.4 pg (25-34); Mean Corpuscular Hgb Conc 32.5 g/dL (32-36); Mean Corpuscular Volume 87.5 fL (80-100); Platelet Count 320 K/uL (130-400); RDW Coefficient of Variation 15.9 % (11.5-14.5); RDW Standard Deviation 50.9 fL (36.4-46.3); Red Blood Count 3.27 M/uL (4.7-6.1); White Blood Count 26.16 K/uL (4.8-10.8)
[2019-06-27] MEDS: LACTATED RINGER'S 1,000 ML IV SCH (21:25)
[2019-06-27] MEDS: FAMOTIDINE 20 MG in SYRINGE 3 ML IV SCH (21:25)
[2019-06-27 21:43] LABS: Acanthocytes 2+; BUN Creatinine Ratio 16.5 (10-20); Basophils # (auto) 0.01 K/uL (0-0.2); Calcium 8.3 mg/dl (8.5-10.1); Est GFR (African American) 9.3; Immature Granulocytes % (auto) 0.4 %; Lymphocytes # (auto) 0.93 K/uL (1.2-3.4); Lymphocytes % (auto) 3.6 %; Magnesium 2.4 mg/dl (1.8-2.4); Monocytes # (auto) 1.06 K/uL (0.11-0.59); Monocytes % (auto) 4.1 %; Neutrophils # (auto) 24.06 K/uL (1.4-6.5); Neutrophils % (auto) 91.9 %; Phosphorus 6.2 mg/dl (2.5-4.9); Potassium 5.8 mmol/L (3.5-5.1); Troponin I 0.073 ng/ml (0-0.045)
[2019-06-27] MEDS ORDERED: VANCOMYCIN CONSULT ACTIVE PRN (21:53)
[2019-06-27] MEDS ORDERED: PIPERACILL/TAZOBAC CONSULT ACTIVE PRN (21:53)
[2019-06-27] MEDS ORDERED: PIPERACILLIN/TAZOBACTAM 2.25 GM in DEXTROSE 5% 100 ML IV SCH (22:00)
[2019-06-27] MEDS ORDERED: VANCOMYCIN HCL 1,000 MG in SODIUM CHLORIDE 0.9% 250 ML IV ONE (22:00)
[2019-06-27] MEDS ORDERED: CEFEPIME CONSULT ACTIVE PRN (22:06)
[2019-06-27] MEDS: metroNIDAZOLE 500 MG/100 ML BAG IV SCH (22:48)
--- NOTE | 2019-06-27 23:09 | Ultrasound Report ---
US gallbladder HISTORY: 79 years-old Male f/u CT abd pelvis, septic acute sepsis with gallbladder distention COMPARISON: CT abdomen and pelvis of same day TECHNIQUE: Multiple real-time sonographic images of the abdominal right upper quadrant were obtained assessing grayscale appearance and color flow FINDINGS: Visualized pancreas is unremarkable.. The liver is mildly prominent in size. No hepatic mass or michelle nal nodularity. Hepatopedal flow within the portal vein. Distended sludge-filled gallbladder with mil d dependent cholelithiasis. Gallbladder wall is normal, 2 mm. No definite pericholecystic fluid. The ground defence officer was unable to place the patient in decubitus positioning secondary to condition. Sonograp hic Kendall sign was also unable to be evaluated. Common bile duct is normal, 4 mm. Septated cyst of the interpolar right kidney measures 1.0 cm. No hydronephrosis. IMPRESSION: 1. Distended sludge-filled gallbladder is noted with mild layering cholelithiasis. There is no gallbl adder wall thickening or definite pericholecystic fluid and the sonographic Kendall sign was unable to be assessed. Findings could be correlated with nuclear medicine hepatobiliary scan to exclude acute cholecystitis. 2. No biliary ductal dilation. ACT 112: Negative or not required by law. The above report was generated using voice recognition software. It may contain grammatical, syntax o r spelling errors. Electronically signed by: Ezekiel Horner M.D. 06/27/2019 11:08 PM
--- NOTE | 2019-06-28 00:08 | Procedure Note ---
Procedure Note Date of Service June 28, 2019 Procedure: Ivf Embryologist Indwelling Peripherally Inserted IV Catheter Placement Attending: Dr. Rivera APC: Jose Salgado PA-C Indication: Need for IV Access, Poor Vascular Access Anesthesia: None Patient without substantial access. Unable to verbally consent secondary to mental status. A time-out was completed verifying correct patient, procedure, site, positioning, and implant(s) or special equipment if applicable. Utilizing bedside ultrasound, vascularity of the RIGHT upper extremity was assessed. Vessel size was noted for appropriate catheter selection and skin was marked with gentle pressure. Patients RIGHT upper extremity was prepped and draped in the usual sterile fashion utilizing chlorhexidine. Ultrasound guidance was used to aid needle placement. An 18 g Endurance Catheter was introduced into the RIGHT brachial vein under direct ultrasound guidance. Guide wire was easily dep loyed without resistance. Catheter was threaded over the guide wire without resistance and the entire apparatus was removed intact. Good venous blood return was noted in the catheter. The IV catheter was easily flushed with sterile saline flush. Sterile clave was attached to the end of the catheter and good blood return was again noted. Tourniquet was released. StatLock device and sterile dressing were applied. The patient tolerated the procedure well. Blood Loss: Minimal Complications: None Procedural Ultrasound Guidance: Procedure Date: 06/28/2019 Indication: Poor Vascular Access Attending: Dr. Rivera APC: Jose Salgado PA-C Artery/Veins Identified: YES Access confirmed in Vein with ultrasound: YES Complications: NONE Patient tolerated procedure: WELL Coding
[2019-06-28] MEDS ORDERED: BENZTROPINE MESYLATE 1 MG/ML 2 ML AMP IV SCH (02:08)
[2019-06-28 02:50] LABS: Hemoglobin 8.6 g/dL (14.0-18.0); Mean Corpuscular Hemoglobin 28.8 pg (25-34); Mean Corpuscular Hgb Conc 33.1 g/dL (32-36); Platelet Count 314 K/uL (130-400); RDW Coefficient of Variation 15.7 % (11.5-14.5); RDW Standard Deviation 50.4 fL (36.4-46.3); Red Blood Count 2.99 M/uL (4.7-6.1); White Blood Count 23.69 K/uL (4.8-10.8)
[2019-06-28 02:58] LABS: INR 1.3 (0.9-1.1); Prothrombin Time 13.3 Seconds (9.0-12.0)
[2019-06-28 03:02] LABS: Base Excess VBG -4.9 mEq/L; HCO3 VBG 20 mmol/L; PCO2 VBG 38 mmHg (38-50); PO2 VBG 36 mmHg; pH VBG 7.35 (7.36-7.41)
[2019-06-28 03:03] LABS: Oxygen Saturation VBG < 60.0 %
[2019-06-28] MEDS: LACTATED RINGER'S 1,000 ML IV SCH (03:28)
[2019-06-28 03:31] LABS: BUN Creatinine Ratio 19.1 (10-20); Bilirubin Direct 0.1 mg/dl (0-0.2); Bilirubin,Total 0.1 mg/dl (0.2-1); Calcium 8.2 mg/dl (8.5-10.1); Creatinine Clr Calc Pharmacy 10.2 ml/min; Est GFR (African American) 10.9; Est GFR (Non-African American) 9.4; Magnesium 2.2 mg/dl (1.8-2.4); Phosphorus 5.5 mg/dl (2.5-4.9); Potassium 5.4 mmol/L (3.5-5.1); Troponin I 0.066 ng/ml (0-0.045)
[2019-06-28] MEDS: metroNIDAZOLE 500 MG/100 ML BAG IV SCH (06:42)
--- NOTE | 2019-06-28 07:08 | XRay Report ---
XR chest 1V portable CLINICAL HISTORY: 79 years-old Male presenting with f/u. TECHNIQUE: Portable upright AP view of the chest was obtained. COMPARISON: 06/27/2019. FINDINGS: Suboptimal positioning mildly limits diagnostic sensitivity the exam. The patient is LEILANI rotated and possibly with exaggerated thoracic kyphosis. The arms are positioned over the upper abdomen and lower thorax. Atherosclerosis and prominence of the thoracic aorta, unchanged. Cardiac silhouette mildly enlarged. Coarsened and heterogeneous lung markings without focal opacity. No large effusion or pneumothorax. T he prior appearance of the left hemithorax is felt to be related to a skinfold. Osteopenia may be pre sent. A hiatal hernia may be present. IMPRESSION: 1. Limitations related to patient positioning. Allowing for this, no acute cardiopulmonary disease. 2. Underlying chronic lung disease may be present. 3. Mild cardiomegaly. ACT 112: Negative or not required by law. Electronically signed by: Yifan Lind M.D. 06/28/2019 7:06 AM
--- NOTE | 2019-06-28 07:45 | Critical Care Progress Note ---
Date of Service June 28, 2019 Assessment & Plan (1) Admitted to intensive care unit: Impression: 79-year-old male with history of schizoaffective disorder and prior stroke in a long-term care facility admitted with acute renal failure, suspected profound hypovolemia with some evidence of septic shock. He is improved with volume resuscitation but remains encephalopathic. 24-hour events: Patient was admitted to the intensive care unit. Broad-spectrum antibiotics continued. Aggressive fluid resuscitation undertaken. Imaging studies performed with results noted above. Recommendation: 1. Neuro: The patient remains encephalopathic. There are multiple etiologies for his encephalopathy likely toxic metabolic. Uremia may be contributing. Sepsis also contributing. No indication for additional ECONOMIC MANAGER imaging or lumbar p uncture currently. The patient is on multiple medications including Cogentin, memantine, perphenazine, fluphenazine in the outpatient setting. We will try and obtain nasoenteric access to restart some of these medications and continue to follow. 2. Cardiovascular: Septic shock. The patient's blood pressure and heart rate have responded nicely to fluid resuscitation. He still appears intravascularly dry somewhat. Will adjust fluids as noted below. Lactate is clearing. Holding his lisinopril for now given his renal failure and hypotension. 3. Pulmonary: No active issues. Continue to follow. 4. ID: Gram-negative bacteremia. Suspect urinary source given perinephric stranding. He is currently on cefepime, vancomycin and Flagyl. Not highly suspicious of cholecystitis including a calculus cholecystitis given the normal alk phos and total bili. 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 Will await speciation of gram- negative rods and continue cefepime for now. I think we can stop the vancomycin and Flagyl. If he remains hypotensive, will check a random cortisol. 5. Renal: Acute renal failure, suspect prerenal although cannot exclude ATN component as well. He is slowly improving but remains significantly uremic. Will discontinue LR given his elevated potassium and change to half-normal saline at 125 cc an hour. Nephrology consultation is pending. We will keep Guy catheter in place given his hypospadias and potential bladder outlet obstruction. He does have evidence of hematuria in the bladder however it appears to be draining well. Will hold off on consideration of irrigation for now. It is possible the patient continued to take his lisinopril in the setting of renal dysfunction which may have contributed to his acute kidney injury. Will ask pharmacy to assist with dosing of the patient's medications in the s etting of acute renal failure. Patient does have evidence of rhabdomyolysis. Continue aggressive for saline diuresis. The role of bicarb at this point time is unclear and given his normal bicarb on his chemistry panel will hold off for now. 6. Endocrine: Glycemic control per protocol. 7. GI: We will try and place enteric access and initiate tube feeds if possible. He does have evidence of severe obstipation. Will start with enemas. May need to add lactulose through his enteric access as well. Additional recommendations will be based on response to therapy. Can discontinue Pepcid on ce enteric feeding initiated. Nutritional consult pending 8. Prophylaxis: Start subcu heparin every 12 Will observe this morning in the ICU. If he continues to do well he may be eligible to transfer the floor this afternoon provided there are no urgent interventions required. (2) Rhabdomyolysis: (3) Hematuria: (4) UTI (urinary tract infection): (5) Elevated troponin: (6) Hyperkalemia: (7) Severe sepsis: (8) Metabolic encephalopathy: (9) Chronic indwelling Guy catheter: (10) Schizoaffective disorder: (11) HTN (hypertension): (12) Dementia: Subjective Patient is minimally responsive. He groans with any manipulation. He does open eyes to voice but does not reliably follow commands. Review of Systems Review of Systems: Unobtainable due to cognitive status Physical Exam Constitutional: + ill appearing, + cachectic and + frail appearing ENMT: Dry mucous membranes. Tongue deviated to the right Neck: trachea midline, no thyromegaly Respiratory: normal respiratory effort, lungs clear to auscultation Cardiovascular: RRR, no murmur, no edema Gastrointestinal (Abdomen): normal bowel sounds, soft, nontender, no hepatosplenomegaly Musculoskeletal: The patient has some decorticate posturing with rigidity. Skin: no rashes, warm and dry Results & Data ([facility]) Vital Signs (Past 12 Hours) Vital Signs Temp Pulse Pulse Resp BP BP Pulse Ox 06/28/19 06:47 104 H 28 H 93/42 L 97 06/28/19 06:00 97 H 18 96 06/28/19 05:47 106 H 28 H 128/59 L 97 06/28/19 05:30 89 20 96 06/28/19 05:17 91 H 21 111/53 L 96 06/28/19 05:00 91 H 21 96 06/28/19 04:47 89 19 107/56 L 97 06/28/19 04:30 90 19 96 06/28/19 04:17 96 H 21 102/58 L 98 06/28/19 04:00 36.9 C 87 20 97 06/28/19 03:47 91 H 20 106/61 97 06/28/19 03:30 105 H 27 H 97 06/28/19 03:18 106 H 30 H 117/48 L 96 06/28/19 02:47 93 H 20 101/56 L 96 06/28/19 02:17 98 H 23 96/48 L 95 06/28/19 01:48 107 H 30 H 103/52 L 98 06/28/19 01:17 90 18 138/59 L 97 06/28/19 00:47 88 19 110/55 L 97 06/28/19 00:45 97 H 28 H 96/68 L 97 06/28/19 00:30 86 20 101/49 L 96 06/28/19 00:15 36.9 C 87 20 100/52 L 98 06/28/19 00:10 89 20 96/68 L 98 06/27/19 23:45 96 H 34 H 125/76 99 06/27/19 23:30 95 H 27 H 124/79 98 06/27/19 23:21 85 06/27/19 23:15 96 H 23 125/63 97 06/27/19 23:00 84 18 114/55 L 100 06/27/19 22:45 98 H 32 H 118/71 99 06/27/19 22:30 86 16 104/56 L 100 06/27/19 22:20 89 17 99/60 L 100 06/27/19 22:00 95 H 22 100 06/27/19 21:43 96 H 23 104/59 L 100 06/27/19 21:30 106 H 31 H 99 06/27/19 21:00 99 H 18 97 06/27/19 20:49 36.7 C 89 18 152/65 H 98 06/27/19 20:45 94 H 19 152/65 H 97 03/24/20 20:34 97 H 22 133/54 L 95 06/27/19 20:31 101 H 23 Laboratory Results 06/28/19 02:40 06/28/19 02:40 AST elevated consistent with rhabdomyolysis. ALT, alk phos and total bili normal. Procalcitonin markedly elevated over 200 Blood cultures from the emergency room are 2 out of 2 gram-negative rods, speciation pending. Troponin is peaked and is decreasing CPK over 10,000 now decreasing. Urinalysis unreliable due to presence of hematuria Prior urine culture showed pansensitive Pseudomonas and Proteus resistant to f luoroquinolones, Bactrim, and ampicillin Diagnostic Findings Imagings were independently reviewed. CT of the chest from last evening demonstrated no parenchymal abnormality other than some basilar atelectasis. No significant pleural effusion. Significant atherosclerotic calcifications were identified. CT of the abdomen and pelvis demonstrated significant stool retention in the colon with some evidence of proctitis. Layering blood in the bladder with a Guy catheter in place. Gallstones with thickened gallbladder wall. Some perinephric stranding. Ultrasound of the gallbladder showed gallbladder wall thickening and some pericholecystic fluid. Coding Level of Care Code Critical Care 1st 30-74 mins Diagnoses Admitted to intensive care unit Z78.9 Rhabdomyolysis M62.82 Hematuria R31.9 UTI (urinary tract infection) N39.0 Elevated troponin R79.89 Hyperkalemia E87.5 Severe sepsis A41.9; R65.20 Metabolic encephalopathy G93.41 Chronic indwelling Guy catheter Z96.0 Schizoaffective disorder F25.9 Schizoaffective disorder type: unspecified HTN (hypertension) I10 Dementia F03.90 Time Spent (min) 45 Comment 45 minutes critical care time including managing life-threatening illness. (1) Schizoaffective disorder Schizoaffective disorder type: unspecified Qualified Code(s): F25.9 - Schizoaffective disorder, unspecified
[2019-06-28] MEDS: SODIUM CHLORIDE 0.45 % 1,000 ML IV SCH ×4 (08:23→22:53)
[2019-06-28] MEDS: FAMOTIDINE 20 MG in SYRINGE 3 ML IV SCH (08:25)
[2019-06-28] MEDS ORDERED: HEPARIN SOD 5,000 UNIT/0.5 ML VIAL SQ SCH (09:00)
--- NOTE | 2019-06-28 09:23 | XRay Report ---
XR KUB/Abdomen 1 view CLINICAL HISTORY: 79 years-old Male presenting with coresafe placement. TECHNIQUE: Single supine view of the abdomen was obtained. COMPARISON: CT of abdomen and pelvis from yesterday. FINDINGS: Initially at 8:48 AM, weighted feeding catheter is kinked proximally and with the tip oriented superi miguelina. This is in the region of the gastroesophageal junction. The guidewires in place proximal to the kinking. Subsequently, repeat radiograph at 9:06 AM demonstrates resolution of the kink with advancement of th e guidewire. The weighted feeding catheter terminates in the body of the stomach. Gaseous and stool distended large bowel. No gross pneumoperitoneum. No significant distention of smal l bowel. Allowing for bowel gas and stool, no calcifications to suggest nephrolithiasis. Prominent atheroscler otic calcifications. Degenerative changes of the spine. Lung bases clear. IMPRESSION: 1. Weighted feeding catheter terminates in the body the stomach; advancement would be required for p ostpyloric positioning. 2. Distended colon with moderate stool burden. Constipation may be present or mild colonic ileus. ACT 112: Negative or not required by law. Electronically signed by: Yifan Lind M.D. 06/28/2019 9:22 AM
[2019-06-28] MEDS ORDERED: SODIUM CHLORIDE 0.9% 250 ML IV PRN (09:42)
--- NOTE | 2019-06-28 10:53 | Nephrology Consultation ---
Date of Consultation June 28, 2019 Assessment & Plan (1) Acute renal failure: Patient with acute renal failure likely due to ischemic ATN in setting of sepsis as well as toxicity from rhabdomyolysis. Patient's baseline creatinine of 1. Creatinine now up to 6.5 which improved to 5.3 today. Patient is making urine. No indication for dialysis. -Monitor renal function with daily BMP -Avoid nephrotoxins such as NSAIDs and contrast. -We will monitor daily for dialysis need. (2) Severe sepsis: Patient with sepsis due to gram-negative bacilli. He is receiving cefepime per ICU and primary team. Renally dose antibiotics for current GFR (3) Rhabdomyolysis: Patient with rhabdomyolysis due to suspected fall. CK is improving with IV fluids. Recommend increasing the rate of IV fluids to 200 mL/h. (4) Hyperkalemia: Due to acute renal failure. Potassium down to 5.4. Recommend low potassium tube feeds and continue medical management with insulin dextrose as needed. No need for dialysis unless failed medical management (5) Anemia: Due to chronic inflammation. Hemoglobin of 8.6 today. Monitor and transfuse as needed History of Present Illness Requesting Physician: Stefano Duke MD Attending Physician: Stefano Duke MD History of Present Illness 79-year-old male with history of BPH and chronic Guy who was admitted on from [facility] for evaluation of altered mental status found to have acute kidney injury and gram-negative sepsis. Baseline creatinine of 1. patient admitted with a creatinine of 6.5 yesterday and downtrending to 5.3 today. He also had hyperkalemia of 5.9 which is improved 5.4 today. Blood pressure has been low with systolic in the 90s. He is getting IV fluids. History is currently unobtainable from the patient. Patient was recently admitted to [facility] 06/04 through 06/08 and was treated for pneumonia and possible UTI. Patient was discharged on doxycycline and Augmentin. According to ED notes, patient was found to be very lethargic and not responsive. This morning patient is awake but still unable to give history. He made 1.5 L of urine. His CK was 10,000 which has improved to 8000 this morning. Allergies Allergy/AdvReac Type Severity Reaction Status Date / Time olanzapine Allergy Mild "IT DOES Verified 06/27/19 17:40 NOT WORK" risperidone Allergy Unknown UNKNOWN Verified 06/27/19 17:40 Influenza Virus Vaccines AdvReac PAIN AT Verified 06/27/19 17:40 INJECTION SITE Tricyclic Antidepressants Allergy Unknown . Uncoded 06/27/19 17:40 Home Medications Home Medications Medication Instructions Recorded Confirmed Type Artificial Tears (PF) 1 drp OPB BID 11/22/18 06/27/19 History Calmoseptine 1 applic TOPICAL DAILY 11/22/18 06/27/19 History aspirin 81 mg PO QAM@0800 11/22/18 06/27/19 History benztropine 1 mg PO BID 11/22/18 06/27/19 History docusate sodium 100 mg PO BID 11/22/18 06/27/19 History fluphenazine decanoate 25 mg IM MONTHLY 11/22/18 06/27/19 History memantine 10 mg PO BID 11/22/18 06/27/19 History mirtazapine 30 mg PO HS@2000 11/22/18 06/27/19 History lidocaine HCl 10 ml EXT Q6H PRN #50 ml 02/24/19 06/27/19 Rx acetaminophen [Tylenol] 650 mg PO Q4 PRN MDD 3G 03/15/19 06/27/19 History tamsulosin 0.4 mg PO QAM@0800 03/15/19 06/27/19 History finasteride 5 mg PO QAM@0800 05/07/19 06/27/19 History fluphenazine HCl 2.5 mg PO Q6H PRN 05/07/19 06/27/19 History multivitamin with iron 1 tab PO QAM@0800 05/07/19 06/27/19 History furosemide 20 mg PO QAM@0800 06/05/19 06/27/19 History lisinopril 5 mg PO QAM@0800 06/05/19 06/27/19 History perphenazine 6 mg PO TID 06/05/19 06/27/19 History benzocaine-menthol [Cepacol Sore 1 sheila PO Q4 PRN 06/27/19 06/27/19 History Throat (anand-men)] calcium carbonate [Calcium Antacid] 500 mg PO Q4 PRN 06/27/19 06/27/19 History loperamide [Imodium A-D] 2 mg PO Q3H PRN 06/27/19 06/27/19 History methyl salicylate-menthol [Muscle 1 applic TOPICAL QID PRN 06/27/19 06/27/19 History Rub] polyethylene glycol 3350 [Miralax] 17 g PO DAILY PRN 06/27/19 06/27/19 History simethicone 80 mg PO TID PRN 06/27/19 06/27/19 History Patient History Medical History Anemia Anxiety BPH loc w urin obs/LUTS CKD (chronic kidney disease), stage III Dementia (Chronic) Dysphagia (Chronic) following CVA H/O: CVA (cerebrovascular accident) (Chronic) Hemangioma of lip (Inactive) HTN (hypertension) (Chronic) Indwelling Guy catheter present Muscle weakness (generalized) Pulmonary nodule Schizoaffective disorder (Chronic) Sepsis due to Pseudomonas March 2019 Urinary retention Urinary retention due to benign prostatic hyperplasia (Chronic) Surgical History Hx of cataract surgery (Chronic) S/P tonsillectomy (Chronic) Family History Other Hypertension Social History Preferred Language: Mongolian Communication Ability: Impaired Typewriter Ribbon Winder Required: No Beliefs That Will Affect Care: None marital status: Single Current Living Situation: Shelter Current Living Situation Comment: [facility] Feels Safe at Home: Yes Smoking Status: Unknown if ever smoked Hx Alcohol Use: No Hx Substance Use: No Review of Systems Review of Systems: Unobtainable due to cognitive status Physical Exam Physical Exam: General exam: Appears comfortable, no acute distress. has NG tube HEENT: Pupils are equal and reactive to light Neck: No JVD, neck is supple trachea is midline Respiratory system: Clear breath sounds bilaterally. Gastrointestinal: Abdomen is soft, non distended, non tender, bowel sounds are present CVS: Regular rate and rhythm. No murmurs, rubs or gallops Musculoskeletal: No joint or muscle tenderness Extremities: Non tender, no edema, peripheral pulses are present Neuro: Moves to pain. Flexed upper limbs Skin: No rashes Results & Data Vital Signs (Past 12 Hours) Vital Signs Temp Pulse Pulse Resp BP BP Pulse Ox 06/28/19 08:47 100 H 28 H 103/61 98 06/28/19 08:17 90 22 94/60 L 96 06/28/19 08:00 37.2 C 95 H 20 96 06/28/19 07:47 103 H 45 H 98/70 L 98 06/28/19 07:17 101 H 31 H 93/56 L 96 06/28/19 07:00 94 H 20 95 06/28/19 06:47 104 H 28 H 93/42 L 97 06/28/19 06:00 97 H 18 96 06/28/19 05:47 106 H 28 H 128/59 L 97 06/28/19 05:30 89 20 96 06/28/19 05:17 91 H 21 111/53 L 96 06/28/19 05:00 91 H 21 96 06/28/19 04:47 89 19 107/56 L 97 06/28/19 04:30 90 19 96 06/28/19 04:17 96 H 21 102/58 L 98 06/28/19 04:00 36.9 C 87 20 97 06/28/19 03:47 91 H 20 106/61 97 06/28/19 03:30 105 H 27 H 97 06/28/19 03:18 106 H 30 H 117/48 L 96 06/28/19 02:47 93 H 20 101/56 L 96 06/28/19 02:17 98 H 23 96/48 L 95 06/28/19 01:48 107 H 30 H 103/52 L 98 06/28/19 01:17 90 18 138/59 L 97 06/28/19 00:47 88 19 110/55 L 97 06/28/19 00:45 97 H 28 H 96/68 L 97 06/28/19 00:30 86 20 101/49 L 96 06/28/19 00:15 36.9 C 87 20 100/52 L 98 06/28/19 00:10 89 20 96/68 L 98 06/27/19 23:45 96 H 34 H 125/76 99 06/27/19 23:30 95 H 27 H 124/79 98 06/27/19 23:21 85 06/27/19 23:15 96 H 23 125/63 97 06/27/19 23:00 84 18 114/55 L 100 Laboratory Results 06/28/19 02:40 06/27/19 06/27/19 06/27/19 16:55 16:55 21:00 WBC 30.17 H* RBC 3.29 L MCV 86.3 MCH 28.6 MCHC 33.1 RDW Std Deviation 50.7 H RDW Coeff of So 16.0 H Plt Count 306 MPV 10.2 Phosphorus 6.2 H Albumin 2.3 L 06/27/19 06/28/19 06/28/19 21:00 02:40 02:40 WBC 26.16 H 23.69 H RBC 3.27 L 2.99 L MCV 87.5 87.0 MCH 28.4 28.8 MCHC 32.5 33.1 RDW Std Deviation 50.9 H 50.4 H RDW Coeff of So 15.9 H 15.7 H Plt Count 320 314 MPV 10.0 10.0 Phosphorus 5.5 H Albumin 2.0 L
[2019-06-28] MEDS: NOVASOURCE RENAL 2.0 CAL 1000ML BAG NG SCH (11:06)
[2019-06-28] MEDS: MEMANTINE HCL 5 MG TAB PO SCH ×2 (11:25→20:36)
--- NOTE | 2019-06-28 14:03 | Electrocardiogram Report ---
Test Reason : Blood Pressure : / mmHG Vent. Rate : 090 BPM Atrial Rate : 090 BPM P-R Int : 180 ms QRS Dur : 090 ms QT Int : 362 ms P-R-T Axes : 099 -54 114 degrees QTc Int : 442 ms Normal sinus rhythm Left axis deviation Abnormal ECG When compared with ECG of 05-JUN-2019 11:00, Vent. rate has increased BY 31 BPM Nonspecific T wave abnormality no longer evident in Inferior leads Nonspecific T wave abnormality now evident in Lateral leads Confirmed by Vicente Olivarez ([id number]) on 06/28/2019 2:02:50 PM Referred By: [facility] Confirmed By:Rik Olivarez
[2019-06-28 14:38] LABS: Calcium 8.2 mg/dl (8.5-10.1); Creatinine Clr Calc Pharmacy 12.1 ml/min; Est GFR (African American) 13.4; Est GFR (Non-African American) 11.5; Magnesium 2.2 mg/dl (1.8-2.4); Phosphorus 4.4 mg/dl (2.5-4.9); Potassium 5.1 mmol/L (3.5-5.1)
--- NOTE | 2019-06-28 14:57 | Hospitalist Progress Note ---
Date of Service June 28, 2019 Assessment & Plan (1) Severe sepsis: (2) UTI (urinary tract infection): Possible catheter Associated UTI severe sepsis Present on admission from [facility] for altered mental status Meet sepsis criteria on admission with Leukocytosis, Tachycardia, Hypotension Lactic acid and procalcitonin elevated CT abd/pelvis showed distended gallbladder with cholelithiasis. Gallbladder U/S showed distended sludge-filled gallbladder is noted with mild layering cholelithiasis. There is no gallbladder wall thickening or definite pericholecystic fluid and the sonographic Kendall sign was unable to be assessed. Received IVF and IV cefepime in the ER, then metronidazole and IV Vanco were adding Blood cx and urine cx positive for gram negative bacilli Continue IV Cefepime for now Will repeat blood cx WBC slight decreased to 23K, lactic acid normalized and procalcitonin trending down Continue monitor closely (3) Acute renal failure: related to dehydration from sepsis Creatinine on admission 5.9 CT showed no significant obstructive uropathy, renal or ureteral calculi. 10 mm hypodense focus of the interpolar right kidney suggest probable cyst Received IVF Nephrology on board and no indication for dialysis. Creatinine improved to 4.5 Continue to hold Lisinopril and Furosemide Avoid nephrotoxins agents Continue monitor BMP (4) Hyperkalemia: Related to acute renal failure K on admission 5.8, improved to 5.1 today No EKG changes, no acidosis Will change to low K diet Continue monitor BMP (5) Metabolic encephalopathy: Likely multifactorial secondary to sepsis and posibvle med as well Head CT negative for acute findings Failed swallow eval Continue NG tube feeding for now (6) Elevated troponin: Mostly related to demand ischemia from COLT/dehydration and sepsis Troponin on admission 0.073, then trending to 0.066 EKG showed no acute ischemic changes Stable (7) Anemia: Hematuria Baseline hemoglobin 9-10 Hgb dropped to 8.6 Aspirin on hold Continue Monitor CBC (8) Rhabdomyolysis: CPK on admission 27625 Received IVF fluid CPK 8329 today Continue monitor (9) H/O: CVA (cerebrovascular accident): Continue to hold aspirin due to hematuria (10) Schizoaffective disorder: Continue benztropine, fluphenazine, memantine, mirtazapine Continue Monitor (11) HTN (hypertension): Low BP on admission Continue to hold lisinopril and furosemide due to COLT and Hypotension on admission Continue monitor BP (12) Chronic indwelling Stafford catheter: Chronic Stafford in place Will consider to exchange stafford cath Finasteride and tamsulosin on hold due to Altered mental status Rib fracture CT chest showed healing subacute minimally displaced fractures of the right posterior 11th and 12th ribs. Will do Tylenol for pain (13) DVT prophylaxis: On heparin subq will d/c due to hematuria Will place on SCDs due to hematuria Admission and Anticipated Discharge Date Admission Date: June 27, 2019 Subjective Pt was seen and examined Lying in bed with no distress Nurse said that early this morning pt was stretching and said that he was exercised Currently lying in bed and hold his arms very stiff Physical Exam Physical Exam: General- No acute distress Head- atraumatic Eyes- PERRL, EOMI, ENT- NG tube in place Neck- supple, no JVD Lungs- No crackles Heart- regular rhythm; no murmur Abdomen- normal bowel sounds, soft, nontender Extremities- no calf tenderness Neuro- PERRL, no facial palsy Skin- warm & dry Results & Data Results & Data ([facility]) Vital Signs (Past 12 Hours) Vital Signs Temp Pulse Pulse Resp BP BP Pulse Ox 06/28/19 13:33 37.4 C 106 H 21 104/61 96 06/28/19 13:30 112 H 30 H 111/74 96 06/28/19 13:00 107 H 29 H 97 06/28/19 12:34 105 H 27 H 122/73 97 06/28/19 12:00 37.2 C 99 H 21 97 06/28/19 11:33 103 H 25 H 105/66 97 06/28/19 11:30 100 H 20 96 06/28/19 11:07 103 H 33 H 119/65 96 06/28/19 11:00 105 H 24 95 06/28/19 10:33 110 H 29 H 109/68 96 06/28/19 10:30 103 H 20 95 06/28/19 10:07 113 H 29 H 100/76 97 06/28/19 10:00 103 H 21 94 06/28/19 09:30 95 06/28/19 09:17 105 H 26 H 111/63 97 06/28/19 09:00 102 H 27 H 97 06/28/19 08:48 99 H 23 97 06/28/19 08:47 100 H 28 H 103/61 98 06/28/19 08:17 90 22 94/60 L 96 06/28/19 08:00 37.2 C 95 H 20 96 06/28/19 07:47 103 H 45 H 98/70 L 98 06/28/19 07:17 101 H 31 H 93/56 L 96 06/28/19 07:00 94 H 20 95 06/28/19 06:47 104 H 28 H 93/42 L 97 06/28/19 06:00 97 H 18 96 06/28/19 05:47 106 H 28 H 128/59 L 97 06/28/19 05:30 89 20 96 06/28/19 05:17 91 H 21 111/53 L 96 06/28/19 05:00 91 H 21 96 06/28/19 04:47 89 19 107/56 L 97 06/28/19 04:30 90 19 96 06/28/19 04:17 96 H 21 102/58 L 98 06/28/19 04:00 36.9 C 87 20 97 06/28/19 03:47 91 H 20 106/61 97 06/28/19 03:30 105 H 27 H 97 06/28/19 03:18 106 H 30 H 117/48 L 96 (1) Schizoaffective disorder Schizoaffective disorder type: unspecified Qualified Code(s): F25.9 - Schizoaffective disorder, unspecified
[2019-06-28] MEDS ORDERED: FLUPHENAZINE DECANOATE IM ONE (15:30)
--- NOTE | 2019-06-28 15:36 | Pharmacy Report ---
Pharmacy Progress Note - Date of Service June 28, 2019 - Progress Note Reviewed psych regimen; confirmed with Sita Sherwood last administration of IM Fluphenazine decanoate was 05/22/19, has not received dose in June due to stay at rehab and then coming to our facility prior to administration. Called and left message with Dr. Mcclendon's office regarding psych regimen as IM fluphenazine + oral perphenazine + oral fluphenazine prn listed, typically PO meds discontinued when on long-acting IM injection. Received call back from Jeanine and confirmed patient is on IM fluphenazine as well as oral 2.5 mg fluphenazine q6H prn + perphenazine oral 6 mg TID. Asked if injection is wearing off and that is why patient is on oral as well? Per Jeanine could not give specific reasoning but patient has been on regimen for quite some time.
[2019-06-28] MEDS: CEFEPIME 2,000 MG in SYRINGE 7.5 ML IV SCH (17:44)
[2019-06-28] MEDS: BENZTROPINE MESYLATE 1 MG TAB PO SCH (20:36)
[2019-06-28] MEDS: MIRTAZAPINE SOLTAB 15 MG PO SCH (20:36)
[2019-06-29] MEDS: SODIUM CHLORIDE 0.45 % 1,000 ML IV SCH ×4 (04:19→21:18)
[2019-06-29 06:32] LABS: Hematocrit (blood only) 24.3 % (42-52); Hemoglobin 8.1 g/dL (14.0-18.0); Mean Corpuscular Hemoglobin 28.7 pg (25-34); Mean Corpuscular Hgb Conc 33.3 g/dL (32-36); Mean Corpuscular Volume 86.2 fL (80-100); Mean Platelet Volume 10.2 fL (7.4-10.4); Platelet Count 257 K/uL (130-400); RDW Coefficient of Variation 15.8 % (11.5-14.5); Red Blood Count 2.82 M/uL (4.7-6.1); White Blood Count 16.28 K/uL (4.8-10.8)
[2019-06-29 06:49] LABS: BUN Creatinine Ratio 25.5 (10-20); Calcium 7.8 mg/dl (8.5-10.1); Creatinine Clr Calc Pharmacy 14.5 ml/min; Est GFR (African American) 16.6; Est GFR (Non-African American) 14.3; Potassium 4.4 mmol/L (3.5-5.1)
[2019-06-29] MEDS: BENZTROPINE MESYLATE 1 MG TAB PO SCH ×2 (08:01→20:33)
[2019-06-29] MEDS: MEMANTINE HCL 5 MG TAB PO SCH ×2 (08:01→20:32)
--- NOTE | 2019-06-29 12:18 | Hospitalist Progress Note ---
Date of Service June 29, 2019 Assessment & Plan (1) Severe sepsis: (2) UTI (urinary tract infection): Possible catheter Associated UTI severe sepsis Present on admission from [facility] for altered mental status Meet sepsis criteria on admission with Leukocytosis, Tachycardia, Hypotension Lactic acid and procalcitonin elevated CT abd/pelvis showed distended gallbladder with cholelithiasis. Gallbladder U/S showed distended sludge-filled gallbladder is noted with mild layering cholelithiasis. There is no gallbladder wall thickening or definite pericholecystic fluid and the sonographic Kendall sign was unable to be assessed. Received IVF and IV cefepime in the ER, then metronidazole and IV Vanco were adding Blood cx and urine cx positive for gram negative bacilli Continue IV Cefepime for now Repeat blood cx collected on 06/27 pending WBC decreased to 16K today lactic acid normalized and procalcitonin trending down Continue monitor closely (3) Acute renal failure: related to dehydration from sepsis Creatinine on admission 5.9 CT showed no significant obstructive uropathy, renal or ureteral calculi. 10 mm hypodense focus of the interpolar right kidney suggest probable cyst Received IVF Nephrology on board and no indication for dialysis. Creatinine continue to improve to 3.7 today Case discussed with Nephrology that recommended to continue IVF at 150CC Continue to hold Lisinopril and Furosemide Avoid nephrotoxins agents Continue monitor BMP (4) Hyperkalemia: Related to acute renal failure K on admission 5.8, continue to improve at 4.4 today No EKG changes, no acidosis Will change to low K diet Continue monitor BMP (5) Metabolic encephalopathy: Likely multifactorial secondary to sepsis and posibvle med as well Head CT negative for acute findings Failed swallow eval Continue NG tube feeding for now (6) Elevated troponin: Mostly related to demand ischemia from COLT/dehydration and sepsis Troponin on admission 0.073, then trending to 0.066 EKG showed no acute ischemic changes Stable (7) Anemia: Hematuria Baseline hemoglobin 9-10 Hgb dropped to 8.2 Hematuria seems to resolve Aspirin on hold Continue Monitor CBC Will transfuse if Hgb less than 7.5 (8) Rhabdomyolysis: CPK on admission 65132 Received IVF fluid CPK trending down to 2255 today Continue monitor CPK level (9) H/O: CVA (cerebrovascular accident): Continue to hold aspirin due to hematuria (10) Schizoaffective disorder: Continue benztropine, fluphenazine, memantine, mirtazapine Continue Monitor (11) HTN (hypertension): Low BP on admission Continue to hold lisinopril and furosemide due to COLT and Hypotension on admission Continue monitor BP (12) Chronic indwelling Stafford catheter: Chronic Stafford in place Will consider to exchange stafford cath Finasteride and tamsulosin on hold due to Altered mental status Rib fracture CT chest showed healing subacute minimally displaced fractures of the right posterior 11th and 12th ribs. Continue PRN Tylenol for pain (13) DVT prophylaxis: On heparin subq will d/c due to hematuria On SCDs due to hematuria Admission and Anticipated Discharge Date Admission Date: June 27, 2019 Subjective Pt was seen and examined Lying in bed with no distress Seems comfortable in bed Denies any chest pain, palpitation and fever Physical Exam Physical Exam: General- No acute distress Head- atraumatic Eyes- PERRL, EOMI, ENT- NG tube in place Neck- supple, no JVD Lungs- No crackles Heart- regular rhythm; no murmur Abdomen- normal bowel sounds, soft, nontender Extremities- no calf tenderness Neuro- PERRL, no facial palsy Skin- warm & dry Results & Data Results & Data ([facility]) Vital Signs (Past 12 Hours) Vital Signs Temp Pulse Resp BP Pulse Ox 06/29/19 10:29 36.8 C 96 H 27 H 115/52 L 95 06/29/19 07:02 37.1 C 97 H 28 H 96/50 L 96 06/29/19 04:06 37.3 C 94 H 24 107/43 L 96 (1) Schizoaffective disorder Schizoaffective disorder type: unspecified Qualified Code(s): F25.9 - Schizoaffective disorder, unspecified
[2019-06-29] MEDS: CEFEPIME 2,000 MG in SYRINGE 7.5 ML IV SCH (19:29)
--- NOTE | 2019-06-29 19:45 | Nephrology Progress Note ---
Date of Service June 29, 2019 Assessment & Plan (1) Acute renal failure: Patient with acute renal failure likely due to ischemic ATN in setting of sepsis as well as toxicity from rhabdomyolysis. Patient's baseline creatinine of 1. Creatinine peak 6.5 on admission which improved to 3.7 today. Patient is making urine. No indication for dialysis. -Monitor renal function with daily BMP -Avoid nephrotoxins such as NSAIDs and contrast. -We will monitor daily for dialysis need. (2) Severe sepsis: Patient with sepsis due to gram-negative bacilli. He is receiving cefepime per ICU and primary team. Renally dose antibiotics for current GFR (3) Rhabdomyolysis: Patient with rhabdomyolysis due to suspected fall. CK is improving with IV fluids. Recommend decreasing the rate of IV fluids to 150 mL/h. (4) Hyperkalemia: Due to acute renal failure. Potassium down to 4.4. Recommend low potassium tube feeds and continue medical management with insulin dextrose as needed. No need for dialysis unless failed medical management (5) Anemia: Due to chronic inflammation. Hemoglobin of 8.1 today. Monitor and transfuse as needed Admission and Anticipated Discharge Date Admission Date: June 27, 2019 Subjective Patient looks better. unable to give history. Review of Systems Review of Systems: Unobtainable due to cognitive status Physical Exam Physical Exam: General exam: Appears comfortable, no acute distress HEENT: Pupils are equal and reactive to light Neck: No JVD, neck is supple trachea is midline Respiratory system: Clear breath sounds bilaterally. Gastrointestinal: Abdomen is soft, non distended, non tender, bowel sounds are present CVS: Regular rate and rhythm. No murmurs, rubs or gallops Musculoskeletal: No joint or muscle tenderness Extremities: Non tender, no edema, peripheral pulses are present Neuro: Sterling snot answer, responds to pain Skin: No rashes Results & Data ([facility]) Vital Signs (Past 12 Hours) Vital Signs Temp Pulse Resp BP BP Pulse Ox 06/29/19 19:10 37.9 C H 102 H 30 H 126/54 L 93 06/29/19 15:16 37.8 C H 106 H 34 H 127/76 94 06/29/19 10:29 36.8 C 96 H 27 H 115/52 L 95 Laboratory Results 06/29/19 05:53 06/29/19 05:53 WBC 16.28 H RBC 2.82 L MCV 86.2 MCH 28.7 MCHC 33.3 RDW Std Deviation 50.0 H RDW Coeff of So 15.8 H Plt Count 257 MPV 10.2
[2019-06-29] MEDS: MIRTAZAPINE SOLTAB 15 MG PO SCH (20:32)
[2019-06-30] MEDS: NOVASOURCE RENAL 2.0 CAL 1000ML BAG NG SCH ×2 (03:07→21:25)
[2019-06-30] MEDS: SODIUM CHLORIDE 0.45 % 1,000 ML IV SCH ×3 (03:08→19:12)
[2019-06-30 05:50] LABS: Hematocrit (blood only) 24.3 % (42-52); Mean Corpuscular Hemoglobin 28.5 pg (25-34); Mean Corpuscular Hgb Conc 32.9 g/dL (32-36); Mean Corpuscular Volume 86.5 fL (80-100); Mean Platelet Volume 9.8 fL (7.4-10.4); Platelet Count 202 K/uL (130-400); RDW Coefficient of Variation 15.8 % (11.5-14.5); RDW Standard Deviation 50.2 fL (36.4-46.3); Red Blood Count 2.81 M/uL (4.7-6.1); White Blood Count 14.45 K/uL (4.8-10.8)
[2019-06-30 06:25] LABS: BUN Creatinine Ratio 29.7 (10-20); Calcium 7.8 mg/dl (8.5-10.1); Creatinine Clr Calc Pharmacy 19.4 ml/min; Est GFR (Non-African American) 19.8; Potassium 4.2 mmol/L (3.5-5.1)
[2019-06-30] MEDS: BENZTROPINE MESYLATE 1 MG TAB PO SCH ×2 (07:55→21:16)
[2019-06-30] MEDS: MEMANTINE HCL 5 MG TAB PO SCH ×2 (07:55→21:16)
--- NOTE | 2019-06-30 10:50 | Nephrology Progress Note ---
Date of Service June 30, 2019 Assessment & Plan (1) Acute renal failure: Patient with acute renal failure likely due to ischemic ATN in setting of sepsis as well as toxicity from rhabdomyolysis. Patient's baseline creatinine of 1. Creatinine peak 6.5 on admission which improved to 2.8 today. Patient is making urine. No indication for dialysis. -Monitor renal function with daily BMP -Avoid nephrotoxins such as NSAIDs and contrast. -We will monitor daily for dialysis need. (2) Severe sepsis: Patient with sepsis due to Proteus mirabilis. He is receiving cefepime per ICU and primary team. Renally dose antibiotics for current GFR (3) Rhabdomyolysis: Patient with rhabdomyolysis due to suspected fall. CK is improving with IV fluids. Recommend decreasing the rate of IV fluids to 100 mL/h. (4) Hyperkalemia: Due to acute renal failure. Potassium down to 4.2. Continue low potassium tube feeds and monitor potassium daily (5) Anemia: Due to chronic inflammation. Hemoglobin of 8 today. Monitor and transfus e as needed Admission and Anticipated Discharge Date Admission Date: June 27, 2019 Subjective Patient does not give history but moves to voice and touch Review of Systems Review of Systems: Unobtainable due to cognitive status Physical Exam Physical Exam: General exam: Appears comfortable, no acute distress HEENT: Pupils are equal and reactive to light Neck: No JVD, neck is supple trachea is midline Respiratory system: Clear breath sounds bilaterally. Gastrointestinal: Abdomen is soft, non distended, non tender, bowel sounds are p resent CVS: Regular rate and rhythm. No murmurs, rubs or gallops Musculoskeletal: No joint or muscle tenderness Extremities: Non tender, no edema, peripheral pulses are present Neuro: no tremors, moves to voice and touch Skin: No rashes Results & Data ([facility]) Vital Signs (Past 12 Hours) Vital Signs Temp Pulse Resp BP Pulse Ox 06/30/19 07:25 37.1 C 89 22 123/51 L 94 06/30/19 03:50 36.5 C 93 H 24 118/38 L 95 06/29/19 23:29 37.1 C 95 H 26 H 133/56 L 95 Laboratory Results 06/30/19 05:23 06/30/19 05:23 WBC 14.45 H RBC 2.81 L MCV 86.5 MCH 28.5 MCHC 32.9 RDW Std Deviation 50.2 H RDW Coeff of So 15.8 H Plt Count 202 MPV 9.8
[2019-06-30] MEDS: AMPICILLIN/SULBACTAM SOD 3,000 MG in 0.9 % SODIUM CHLORIDE 100 ML IV SCH (13:12)
--- NOTE | 2019-06-30 13:22 | Hospitalist Progress Note ---
Date of Service June 30, 2019 Assessment & Plan (1) Severe sepsis: (2) UTI (urinary tract infection): Possible catheter Associated UTI severe sepsis Present on admission from [facility] for altered mental status Meet sepsis criteria on admission with Leukocytosis, Tachycardia, Hypotension Lactic acid and procalcitonin elevated CT abd/pelvis showed distended gallbladder with cholelithiasis. Gallbladder U/S showed distended sludge-filled gallbladder is noted with mild layering cholelithiasis. There is no gallbladder wall thickening or definite pericholecystic fluid and the sonographic Kendall sign was unable to be assessed. Received IVF and IV cefepime in the ER, then metronidazole and IV Vanco were adding Blood cx and urine cx positive for gram negative bacilli (proteus mirabilis) On IV Cefepime for now Repeat blood cx collected on 06/27 no growth so far WBC decreased to 14K today lactic acid normalized and procalcitonin trending down Will transition to oral Keflex of Cefdinir on discharge Continue monitor closely (3) Acute renal failure: related to dehydration from sepsis Creatinine on admission 5.9 CT showed no significant obstructive uropathy, renal or ureteral calculi. 10 mm hypodense focus of the interpolar right kidney suggest probable cyst Received IVF Nephrology on board and no indication for dialysis. Creatinine continue to improve to 2.8 today Case discussed with Nephrology that recommended to decrease IVF at 100 CC Continue to hold Lisinopril and Furosemide Avoid nephrotoxins agents Continue monitor BMP (4) Hyperkalemia: Related to acute renal failure K on admission 5.8, continue to improve at 4.2 today No EKG changes, no acidosis Will change to low K diet Continue monitor BMP (5) Metabolic encephalopathy: Likely multifactorial secondary to sepsis and posibvle med as well Head CT negative for acute findings Failed swallow eval Continue NG tube feeding for now (6) Elevated troponin: Mostly related to demand ischemia from COLT/dehydration and sepsis Troponin on admission 0.073, then trending to 0.066 EKG showed no acute ischemic changes Stable (7) Anemia: Hematuria Baseline hemoglobin 9-10 Hgb dropped to 8 Hematuria seems to resolve Aspirin on hold Continue Monitor CBC Will transfuse if Hgb less than 7.5 (8) Rhabdomyolysis: CPK on admission [id number] Received IVF fluid CPK trending down to 2255 today Continue monitor CPK level (9) H/O: CVA (cerebrovascular accident): Continue to hold aspirin due to hematuria (10) Schizoaffective disorder: Continue benztropine, fluphenazine, memantine Will resume Perphenazine Continue Monitor (11) HTN (hypertension): Low BP on admission Continue to hold lisinopril and furosemide due to COLT and Hypotension on admission Continue monitor BP (12) Chronic indwelling Stafford catheter: Chronic Stafford in place Will consider to exchange stafford cath Finasteride and tamsulosin on hold due to Altered mental status Rib fracture CT chest showed healing subacute minimally displaced fractures of the right posterior 11th and 12th ribs. Continue PRN Tylenol for pain (13) DVT prophylaxis: On heparin subq will d/c due to hematuria On SCDs due to hematuria Admission and Anticipated Discharge Date Admission Date: June 27, 2019 Subjective Pt was seen and examined Lying in bed with no distress Pt is more awake today He said that he is hungry Denies any chest pain, palpitation, fever and SOB Physical Exam Physical Exam: General- No acute distress Head- atraumatic Eyes- PERRL, EOMI, ENT- NG tube in place Neck- supple, no JVD Lungs- No crackles Heart- regular rhythm; no murmur Abdomen- normal bowel sounds, soft, nontender Extremities- no calf tenderness Neuro- PERRL, no facial palsy Skin- warm & dry Results & Data Results & Data ([facility]) Vital Signs (Past 12 Hours) Vital Signs Temp Pulse Resp BP Pulse Ox 06/30/19 11:41 36.9 C 82 22 118/50 L 98 06/30/19 07:25 37.1 C 89 22 123/51 L 94 06/30/19 03:50 36.5 C 93 H 24 118/38 L 95 (1) Schizoaffective disorder Schizoaffective disorder type: unspecified Qualified Code(s): F25.9 - Schizoaffective disorder, unspecified
[2019-06-30] MEDS: MIRTAZAPINE SOLTAB 15 MG PO SCH (21:16)
[2019-07-01] MEDS: AMPICILLIN/SULBACTAM SOD 3,000 MG in 0.9 % SODIUM CHLORIDE 100 ML IV SCH ×2 (00:55→13:58)
[2019-07-01] MEDS: SODIUM CHLORIDE 0.45 % 1,000 ML IV SCH ×2 (05:33→14:27)
[2019-07-01 06:37] LABS: Hematocrit (blood only) 25.2 % (42-52); Hemoglobin 8.3 g/dL (14.0-18.0); Mean Corpuscular Hemoglobin 28.5 pg (25-34); Mean Corpuscular Hgb Conc 32.9 g/dL (32-36); Mean Corpuscular Volume 86.6 fL (80-100); Mean Platelet Volume 10.3 fL (7.4-10.4); Platelet Count 208 K/uL (130-400); RDW Coefficient of Variation 15.8 % (11.5-14.5); RDW Standard Deviation 50.3 fL (36.4-46.3); Red Blood Count 2.91 M/uL (4.7-6.1); White Blood Count 16.71 K/uL (4.8-10.8)
[2019-07-01 07:17] LABS: BUN Creatinine Ratio 33.9 (10-20); Calcium 8.2 mg/dl (8.5-10.1); Creatinine Clr Calc Pharmacy 24.6 ml/min; Est GFR (Non-African American) 25.9; Potassium 3.9 mmol/L (3.5-5.1)
[2019-07-01] MEDS: BENZTROPINE MESYLATE 1 MG TAB PO SCH ×2 (08:12→21:34)
[2019-07-01] MEDS: MEMANTINE HCL 5 MG TAB PO SCH ×2 (08:12→21:35)
--- NOTE | 2019-07-01 14:07 | Progress Notes ---
DATE: 07/01/2019 Overnight, patient remained stable. Labs are getting better. Good urine output of more than 2.5 liters in 24-hour time period. Vital signs seems stable. PHYSICAL EXAMINATION: GENERAL: The patient is not very interactive and very lethargic and hard to get anything meaningful from the patient, not really following command. VITAL SIGNS: Blood pressure is 117/62, pulse rate 85, temperature 36.8, 96% on room air. HEENT: Mucous membrane is moist. NECK: Supple. No jugular venous distention. CHEST: Bilateral decreased breath sounds, but very poor inspiratory effort. CARDIOVASCULAR: S1 and S2 regular. ABDOMEN: Soft, nontender. EXTREMITIES: Shows no edema. LABORATORY TESTS: From this morning shows improving renal function, BUN is down to 78, creatinine is 2.31. Sodium 144, potassium 3.9, chloride 119, CO2 21. Hemoglobin 8.3, WBC count 16.71. ASSESSMENT AND PLAN: A 79-year-old male with acute renal failure due to ischemic acute tubular necrosis in the setting of sepsis as well as toxicity from rhabdomyolysis. The patient's baseline creatinine is 1. Creatinine peaked at 6.5 on admission, which has since steadily improved and is now down to 2.3 with increasing urine output. At this point, he is improving nicely. I will cut down the fluid to half normal saline at 50 mL per hour, even that we can probably stop by tomorrow, we can give some extra free water flushes through the NG tube.
--- NOTE | 2019-07-01 14:19 | Hospitalist Progress Note ---
Date of Service July 01, 2019 Assessment & Plan (1) Severe sepsis: (2) UTI (urinary tract infection): Possible catheter Associated UTI severe sepsis Present on admission from [facility] for altered mental status Meet sepsis criteria on admission with Leukocytosis, Tachycardia, Hypotension Lactic acid and procalcitonin elevated CT abd/pelvis showed distended gallbladder with cholelithiasis. Gallbladder U/S showed distended sludge-filled gallbladder is noted with mild layering cholelithiasis. There is no gallbladder wall thickening or definite pericholecystic fluid and the sonographic Kendall sign was unable to be assessed. Received IVF and IV cefepime in the ER, then metronidazole and IV Vanco were adding Blood cx and urine cx positive for gram negative bacilli (proteus mirabilis) Repeat blood cx collected on 06/27 no growth so far WBC 16K today lactic acid normalized and procalcitonin trending down IV rocephin was changed to Unasyn Will transition to oral Keflex of Cefdinir on discharge Continue monitor closely (3) Acute renal failure: related to dehydration from sepsis Creatinine on admission 5.9 CT showed no significant obstructive uropathy, renal or ureteral calculi. 10 mm hypodense focus of the interpolar right kidney suggest probable cyst Received IVF Nephrology on board and no indication for dialysis. Creatinine continue to improve to 2.3 today Case discussed with Nephrology that recommended to decrease IVF at 50 CC Continue to hold Lisinopril and Furosemide Avoid nephrotoxins agents Continue monitor BMP (4) Hyperkalemia: Related to acute renal failure K on admission 5.8, continue to improve at 3.9 today No EKG changes, no acidosis Will change to low K diet Continue monitor BMP (5) Metabolic encephalopathy: Likely multifactorial secondary to sepsis and posibvle med as well Head CT negative for acute findings Failed swallow eval Continue NG tube feeding for now (6) Elevated troponin: Mostly related to demand ischemia from COLT/dehydration and sepsis Troponin on admission 0.073, then trending to 0.066 EKG showed no acute ischemic changes Stable (7) Anemia: Hematuria Baseline hemoglobin 9-10 Hgb 8.3 today Hematuria resolved Aspirin on hold Continue Monitor CBC Will transfuse if Hgb less than 7.5 (8) Rhabdomyolysis: CPK on admission [id number] Received IVF fluid CPK trending down to 910 (9) H/O: CVA (cerebrovascular accident): Continue to hold aspirin due to hematuria (10) Schizoaffective disorder: Continue benztropine, fluphenazine, memantine Will resume Perphenazine Continue Monitor (11) HTN (hypertension): Low BP on admission Continue to hold lisinopril and furosemide due to COLT and Hypotension on admi ssion Continue monitor BP (12) Chronic indwelling Stafford catheter: Chronic Stafford in place Will consider to exchange stafford cath Finasteride and tamsulosin on hold due to Altered mental status Rib fracture CT chest showed healing subacute minimally displaced fractures of the right posterior 11th and 12th ribs. Continue PRN Tylenol for pain (13) DVT prophylaxis: On heparin subq will d/c due to hematuria On SCDs due to hematuria Admission and Anticipated Discharge Date Admission Date: June 27, 2019 Subjective Pt was seen and examined Lying in bed with no distress Denies any chest pain, palpitation and SOB Physical Exam Physical Exam: General- No acute distress Head- atraumatic Eyes- PERRL, EOMI, ENT- NG tube in place Neck- supple, no JVD Lungs- No crackles Heart- regular rhythm; no murmur Abdomen- normal bowel sounds, soft, nontender Extremities- no calf tenderness Neuro- PERRL, no facial palsy Skin- warm & dry Results & Data Results & Data ([facility]) Vital Signs (Past 12 Hours) Vital Signs Temp Pulse Pulse Resp BP Pulse Ox 07/01/19 11:31 36.8 C 85 25 H 117/62 96 07/01/19 08:00 81 07/01/19 06:59 36.5 C 71 26 H 120/49 L 97 07/01/19 03:18 36.5 C 85 26 H 126/45 L 97 (1) Schizoaffective disorder Schizoaffective disorder type: unspecified Qualified Code(s): F25.9 - Schizoaffective disorder, unspecified
[2019-07-01] MEDS: MIRTAZAPINE SOLTAB 15 MG PO SCH (21:35)
[2019-07-01] MEDS: NOVASOURCE RENAL 2.0 CAL 1000ML BAG NG SCH (21:40)
[2019-07-02] MEDS: AMPICILLIN/SULBACTAM SOD 3,000 MG in 0.9 % SODIUM CHLORIDE 100 ML IV SCH ×2 (01:17→13:05)
[2019-07-02 05:59] LABS: Hematocrit (blood only) 24.8 % (42-52); Hemoglobin 8.2 g/dL (14.0-18.0); Mean Corpuscular Hemoglobin 28.3 pg (25-34); Mean Corpuscular Hgb Conc 33.1 g/dL (32-36); Mean Corpuscular Volume 85.5 fL (80-100); Mean Platelet Volume 10.4 fL (7.4-10.4); Platelet Count 230 K/uL (130-400); RDW Coefficient of Variation 15.7 % (11.5-14.5); RDW Standard Deviation 49.5 fL (36.4-46.3); White Blood Count 16.03 K/uL (4.8-10.8)
[2019-07-02 06:27] LABS: BUN Creatinine Ratio 34.4 (10-20); Calcium 8.3 mg/dl (8.5-10.1); Creatinine Clr Calc Pharmacy 28.1 ml/min; Est GFR (African American) 34.5; Est GFR (Non-African American) 29.7; Potassium 3.7 mmol/L (3.5-5.1)
[2019-07-02] MEDS: BENZTROPINE MESYLATE 1 MG TAB PO SCH ×2 (07:42→20:48)
[2019-07-02] MEDS: MEMANTINE HCL 5 MG TAB PO SCH ×2 (07:42→20:48)
[2019-07-02] MEDS: SODIUM CHLORIDE 0.45 % 1,000 ML IV SCH (10:50)
--- NOTE | 2019-07-02 14:15 | Hospitalist Progress Note ---
Date of Service July 02, 2019 Assessment & Plan (1) Severe sepsis: (2) UTI (urinary tract infection): Possible catheter Associated UTI severe sepsis Present on admission from [facility] for altered mental status Meet sepsis criteria on admission with Leukocytosis, Tachycardia, Hypotension Lactic acid and procalcitonin elevated CT abd/pelvis showed distended gallbladder with cholelithiasis. Gallbladder U/S showed distended sludge-filled gallbladder is noted with mild layering cholelithiasis. There is no gallbladder wall thickening or definite pericholecystic fluid and the sonographic Kendall sign was unable to be assessed. Received IVF and IV cefepime in the ER, then metronidazole and IV Vanco were adding Blood cx and urine cx positive for gram negative bacilli (proteus mirabilis) Repeat blood cx collected on 06/27 no growth so far WBC 16K today lactic acid normalized and procalcitonin trending down IV rocephin was changed to Unasyn Will transition to oral Keflex of Cefdinir on discharge Continue monitor closely (3) Acute renal failure: related to dehydration from sepsis Creatinine on admission 5.9 CT showed no significant obstructive uropathy, renal or ureteral calculi. 10 mm hypodense focus of the interpolar right kidney suggest probable cyst Received IVF Nephrology on board and no indication for dialysis. Creatinine continue to improve to 2.06 today Case discussed with Nephrology that recommended to decrease IVF at 50 CC Continue to hold Lisinopril and Furosemide Avoid nephrotoxins agents Continue monitor BMP (4) Hyperkalemia: Related to acute renal failure K on admission 5.8, continue to improve at 3.7 today No EKG changes, no acidosis Will change to low K diet Continue monitor BMP (5) Metabolic encephalopathy: Likely multifactorial secondary to sepsis and posibvle med as well Head CT negative for acute findings Failed swallow eval Continue NG tube feeding for now (6) Elevated troponin: Mostly related to demand ischemia from COLT/dehydration and sepsis Troponin on admission 0.073, then trending to 0.066 EKG showed no acute ischemic changes Stable (7) Anemia: Hematuria Baseline hemoglobin 9-10 Hgb 8.2 today Hematuria resolved Aspirin on hold Continue Monitor CBC Will transfuse if Hgb less than 7.5 (8) Rhabdomyolysis: CPK on admission [id number] Received IVF fluid CPK trending down to 910 (9) H/O: CVA (cerebrovascular accident): Continue to hold aspirin due to hematuria (10) Schizoaffective disorder: Continue benztropine, fluphenazine, memantine Will resume Perphenazine Continue Monitor (11) HTN (hypertension): Low BP on admission Continue to hold lisinopril and furosemide due to COLT and Hypotension on adm ission Continue monitor BP (12) Chronic indwelling Stafford catheter: Chronic Stafford in place Will consider to exchange stafford cath Finasteride and tamsulosin on hold due to Altered mental status Rib fracture CT chest showed healing subacute minimally displaced fractures of the right posterior 11th and 12th ribs. Continue PRN Tylenol for pain (13) DVT prophylaxis: On heparin subq will d/c due to hematuria On SCDs due to hematuria Admission and Anticipated Discharge Date Admission Date: June 27, 2019 Subjective Pt was seen and examined Lying in bed with no distress Pt said that he is hungry Denies any chest pain Physical Exam Physical Exam: General- No acute distress Head- atraumatic Eyes- PERRL, EOMI, ENT- NG tube in place Neck- supple, no JVD Lungs- No crackles Heart- regular rhythm; no murmur Abdomen- normal bowel sounds, soft, nontender Extremities- no calf tenderness Neuro- PERRL, no facial palsy Skin- warm & dry Results & Data Results & Data ([facility]) Vital Signs (Past 12 Hours) Vital Signs Temp Pulse Pulse Resp BP Pulse Ox 07/02/19 11:47 37.0 C 74 18 101/47 L 100 07/02/19 08:00 71 07/02/19 07:53 37.0 C 84 25 H 143/54 H 99 07/02/19 04:48 36.6 C 73 18 124/55 L 100 (1) Schizoaffective disorder Schizoaffective disorder type: unspecified Qualified Code(s): F25.9 - Schizoaffective disorder, unspecified
--- NOTE | 2019-07-02 15:59 | Progress Notes ---
DATE: 07/02/2019 Overnight, patient remained stable. Labs are slowly getting better. Good urine output. Vital signs seem to be stable. PHYSICAL EXAMINATION: GENERAL: The patient is not very interactive and very lethargic and hard to get any meaningful history from the patient, not really following commands. VITAL SIGNS: Blood pressure is 124/47, pulse rate 74 per minute, temperature 36.8 degrees Celsius, 100% on room air. HEENT: Mucous membrane is dry. NECK: Supple. No jugular venous distention. CHEST: Bilateral decreased breath sounds, but very poor inspiratory effort. CARDIOVASCULAR: S1, S2 regular. ABDOMEN: Soft, nontender. EXTREMITIES: Shows no edema. LABORATORY TESTS: From this morning shows improving renal function. Hemoglobin 8.2, WBC count 16,000, platelet count 230. Sodium is going up steadily and is now 146, chloride 121, BUN 71, creatinine 2.06, glucose 123, calcium 8.3. ASSESSMENT AND PLAN: A 79-year-old male with acute renal failure due to ischemic acute tubular necrosis in the setting of sepsis as well as toxicity from rhabdomyolysis. The patient's baseline creatinine is 1. Creatinine was 6.5 on admission which has been steadily improved and is now down to about 2 with increasing urine output. At this point, he is improving nicely. However, his serum sodium is going up and is now up to 146. Because of that, I would like to stop the half normal saline and instead give D5 water at 75 mL per hour for a total of 1 liter bag. Also, consider giving more free water flushes through the NG tube with his tube feed. Continue daily labs.
[2019-07-02] MEDS: DEXTROSE 5% 1,000 ML IV SCH (16:56)
[2019-07-02] MEDS: MIRTAZAPINE SOLTAB 15 MG PO SCH (20:48)
[2019-07-02] MEDS: NOVASOURCE RENAL 2.0 CAL 1000ML BAG NG SCH (20:54)
[2019-07-03] MEDS: AMPICILLIN/SULBACTAM SOD 3,000 MG in 0.9 % SODIUM CHLORIDE 100 ML IV SCH ×2 (01:11→13:10)
[2019-07-03] MEDS: DEXTROSE 5% 1,000 ML IV SCH ×3 (05:22→20:51)
[2019-07-03] MEDS: BENZTROPINE MESYLATE 1 MG TAB PO SCH ×2 (08:13→20:28)
[2019-07-03] MEDS: MEMANTINE HCL 5 MG TAB PO SCH ×2 (08:13→20:27)
[2019-07-03 08:36] LABS: Hematocrit (blood only) 25.2 % (42-52); Hemoglobin 8.2 g/dL (14.0-18.0); Mean Corpuscular Hemoglobin 28.5 pg (25-34); Mean Corpuscular Hgb Conc 32.5 g/dL (32-36); Mean Corpuscular Volume 87.5 fL (80-100); Mean Platelet Volume 10.6 fL (7.4-10.4); Platelet Count 250 K/uL (130-400); RDW Coefficient of Variation 15.7 % (11.5-14.5); RDW Standard Deviation 50.7 fL (36.4-46.3); Red Blood Count 2.88 M/uL (4.7-6.1); White Blood Count 14.99 K/uL (4.8-10.8)
[2019-07-03 09:06] LABS: Potassium 3.7 mmol/L (3.5-5.1)
[2019-07-03 09:07] LABS: BUN Creatinine Ratio 33.2 (10-20); Calcium 8.4 mg/dl (8.5-10.1); Creatinine Clr Calc Pharmacy 31.2 ml/min; Est GFR (Non-African American) 33.7
--- NOTE | 2019-07-03 09:27 | Nephrology Progress Note ---
Date of Service July 03, 2019 Assessment & Plan (1) Acute renal failure: Patient with acute renal failure likely due to ischemic ATN in setting of sepsis as well as toxicity from rhabdomyolysis. Patient's baseline creatinine of 1. Creatinine peak 6.5 on admission which improved to 1.8 today. Patient is making urine. No indication for dialysis. Sodium up trending. -Increase D5 to 125 mL/h. -Monitor renal function with daily BMP -Avoid nephrotoxins such as NSAIDs and contrast. -We will monitor daily for dialysis need. (2) Severe sepsis: Patient with sepsis due to Proteus mirabilis. He is receiving cefepime per primary team. Renally dose antibiotics for current GFR (3) Rhabdomyolysis: Patient with rhabdomyolysis due to suspected fall. CK is improving with IV fluids. Continue D5 at 125 mm/h today. (4) Hyperkalemia: Due to acute renal failure. Potassium down to 3.7. Continue low potassium tube feeds and monitor potassium daily (5) Anemia: Due to chronic inflammation. Hemoglobin of 8.2 today. Monitor and transfuse as needed Admission and Anticipated Discharge Date Admission Date: June 27, 2019 Subjective Patient is more awake today and able to give history. He denies any complaints. He is n.p.o. after failed swallow tests. He is complaining of hunger. Creatinine improving at 1.8 today. Sodium up trending Review of Systems Review of Systems: All systems reviewed & are unremarkable except as noted in HPI & below Physical Exam Physical Exam: General exam: Appears comfortable, no acute distress HEENT: Pupils are equal and reactive to light Neck: No JVD, neck is supple trachea is midline Respiratory system: Clear breath sounds bilaterally. Gastrointestinal: Abdomen is soft, non distended, non tender, bowel sounds are p resent. Guy catheter present. CVS: Regular rate and rhythm. No murmurs, rubs or gallops Musculoskeletal: No joint or muscle tenderness Extremities: Non tender, no edema, peripheral pulses are present Neuro: Oriented, no tremors, no focal neurological deficits Skin: No rashes Results & Data ([facility]) Vital Signs (Past 12 Hours) Vital Signs Temp Pulse Pulse Resp BP Pulse Ox 07/03/19 06:47 36.6 C 80 19 150/63 H 100 07/03/19 03:42 36.9 C 72 19 134/52 L 100 07/03/19 00:05 37.0 C 77 20 130/50 L 99 07/02/19 23:34 82 Laboratory Results 07/03/19 08:09 07/03/19 08:09 WBC 14.99 H RBC 2.88 L MCV 87.5 MCH 28.5 MCHC 32.5 RDW Std Deviation 50.7 H RDW Coeff of So 15.7 H Plt Count 250 MPV 10.6 H
--- NOTE | 2019-07-03 18:13 | Hospitalist Progress Note ---
Date of Service July 03, 2019 Assessment & Plan (1) Severe sepsis: (2) UTI (urinary tract infection): Possible catheter Associated UTI severe sepsis Present on admission from [facility] for altered mental status Meet sepsis criteria on admission with Leukocytosis, Tachycardia, Hypotension Lactic acid and procalcitonin elevated CT abd/pelvis showed distended gallbladder with cholelithiasis. Gallbladder U/S showed distended sludge-filled gallbladder is noted with mild layering cholelithiasis. There is no gallbladder wall thickening or definite pericholecystic fluid and the sonographic Kendall sign was unable to be assessed. Received IVF and IV cefepime in the ER, then metronidazole and IV Vanco were adding Blood cx and urine cx positive for gram negative bacilli (proteus mirabilis) Repeat blood cx collected on 06/27 no growth so far WBC 14K today lactic acid normalized and procalcitonin trending down IV rocephin was changed to Unasyn Will transition to oral Keflex of Cefdinir on discharge Continue monitor closely (3) Acute renal failure: related to dehydration from sepsis Creatinine on admission 5.9 CT showed no significant obstructive uropathy, renal or ureteral calculi. 10 mm hypodense focus of the interpolar right kidney suggest probable cyst Received IVF Nephrology on board and no indication for dialysis. Creatinine continue to improve to 1.8 today Nephrology on board IVF changed to Dextrose at 125 mg Continue to hold Lisinopril and Furosemide Avoid nephrotoxins agents Continue monitor BMP (4) Hyperkalemia: Related to acute renal failure K on admission 5.8, continue to improve at 3.7 today No EKG changes, no acidosis Will change to low K diet Continue monitor BMP (5) Metabolic encephalopathy: Likely multifactorial secondary to sepsis and posibvle med as well Head CT negative for acute findings NG tube discontinued Passed swallow exam and started on Puree diet (6) Elevated troponin: Mostly related to demand ischemia from COLT/dehydration and sepsis Troponin on admission 0.073, then trending to 0.066 EKG showed no acute ischemic changes Stable (7) Anemia: Hematuria Baseline hemoglobin 9-10 Hgb 8.2 today Hematuria resolved Aspirin on hold Continue Monitor CBC Will transfuse if Hgb less than 7.5 (8) Rhabdomyolysis: CPK on admission [id number] Received IVF fluid CPK trending down to 910 (9) H/O: CVA (cerebrovascular accident): Continue to hold aspirin due to hematuria (10) Schizoaffective disorder: Continue benztropine, fluphenazine, memantine Will resume Perphenazine Continue Monitor (11) HTN (hypertension): Low BP on admission Continue to hold lisinopril and furosemide due to COLT and Hypotension on admission Continue monitor BP (12) Chronic indwelling Stafford catheter: Chronic Stafford in place Will consider to exchange stafford cath Finasteride and tamsulosin on hold due to Altered mental status Rib fracture CT chest showed healing subacute minimally displaced fractures of the right posterior 11th and 12th ribs. Continue PRN Tylenol for pain (13) DVT prophylaxis: On heparin subq will d/c due to hematuria On SCDs due to hematuria Will transfer to medical Continue PT/OT exam Admission and Anticipated Discharge Date Admission Date: June 27, 2019 Subjective Pt was seen and examined Lying in bed with no distress Pt is more awake and alert today He pulled out the corsafe today He passed swallow exam and started on diet Denies any chest pain, palpitation, dizziness and SOB Physical Exam Physical Exam: General- No acute distress Head- atraumatic Eyes- PERRL, EOMI, ENT- NG tube in place Neck- supple, no JVD Lungs- No crackles Heart- regular rhythm; no murmur Abdomen- normal bowel sounds, soft, nontender Extremities- no calf tenderness Neuro- PERRL, no facial palsy Skin- warm & dry Results & Data Results & Data ([facility]) Vital Signs (Past 12 Hours) Vital Signs Temp Pulse Pulse Resp BP BP Pulse Ox 07/03/19 15:04 36.5 C 72 19 111/44 L 100 07/03/19 10:40 36.9 C 68 28 H 122/58 L 100 07/03/19 10:21 63 07/03/19 08:00 63 07/03/19 06:47 36.6 C 80 19 150/63 H 100 (1) Schizoaffective disorder Schizoaffective disorder type: unspecified Qualified Code(s): F25.9 - Schizoaffective disorder, unspecified
[2019-07-03] MEDS: MIRTAZAPINE SOLTAB 15 MG PO SCH (20:27)
[2019-07-03] MEDS: PERPHENAZINE 2 MG TABLET PO SCH (20:51)
[2019-07-04] MEDS: AMPICILLIN/SULBACTAM SOD 3,000 MG in 0.9 % SODIUM CHLORIDE 100 ML IV SCH ×3 (01:20→20:16)
[2019-07-04] MEDS: DEXTROSE 5% 1,000 ML IV SCH (05:18)
[2019-07-04 05:59] LABS: Hematocrit (blood only) 23.6 % (42-52); Mean Corpuscular Hgb Conc 33.9 g/dL (32-36); Mean Corpuscular Volume 85.5 fL (80-100); Mean Platelet Volume 10.3 fL (7.4-10.4); Platelet Count 277 K/uL (130-400); RDW Coefficient of Variation 15.7 % (11.5-14.5); RDW Standard Deviation 48.9 fL (36.4-46.3); Red Blood Count 2.76 M/uL (4.7-6.1); White Blood Count 14.07 K/uL (4.8-10.8)
[2019-07-04 06:33] LABS: BUN Creatinine Ratio 30.4 (10-20); Calcium 7.7 mg/dl (8.5-10.1); Creatinine Clr Calc Pharmacy 34.3 ml/min; Est GFR (African American) 43.8; Est GFR (Non-African American) 37.8; Potassium 3.4 mmol/L (3.5-5.1)
[2019-07-04] MEDS ORDERED: POTASSIUM CHLORIDE 20 MEQ TABCR PO STA (08:44)
[2019-07-04] MEDS: BENZTROPINE MESYLATE 1 MG TAB PO SCH ×2 (08:52→20:16)
[2019-07-04] MEDS: MEMANTINE HCL 5 MG TAB PO SCH ×2 (08:52→20:17)
[2019-07-04] MEDS: PERPHENAZINE 2 MG TABLET PO SCH ×3 (08:53→20:18)
--- NOTE | 2019-07-04 09:17 | Nephrology Progress Note ---
Date of Service July 04, 2019 Assessment & Plan (1) Acute renal failure: Patient with acute renal failure likely due to ischemic ATN in setting of sepsis as well as toxicity from rhabdomyolysis. Patient's baseline creatinine of 1. Creatinine peak 6.5 on admission which improved to 1.69 today. Patient is making urine. No indication for dialysis. -Stop D5 -Monitor renal function with daily BMP -Avoid nephrotoxins such as NSAIDs and contrast. -We will monitor daily for dialysis need. (2) Severe sepsis: Patient with sepsis due to Proteus mirabilis. He is receiving unasyn per primary team. Renally dose antibiotics for current GFR (3) Rhabdomyolysis: Patient with rhabdomyolysis due to suspected fall. CK is improving with IV fluids. Stop fluids and monitor (4) Hyperkalemia: Due to acute renal failure. Potassium down to 3.4. Give kcl 20meq once. l iberalize k in the diet. monitor potassium daily (5) Anemia: Due to chronic inflammation. Hemoglobin of 8 today. Monitor and transfuse as needed Admission and Anticipated Discharge Date Admission Date: June 27, 2019 Subjective Patient feels well. No shortness of breath or pain. Creatinine downtrending. He is eating and drinking well. Review of Systems Review of Systems: All systems reviewed & are unremarkable except as noted in HPI & below Physical Exam Physical Exam: General exam: Appears comfortable, no acute distress HEENT: Pupils are equal and reactive to light Neck: No JVD, neck is supple trachea is midline Respiratory system: Clear breath sounds bilaterally. Gastrointestinal: Abdomen is soft, non distended, non tender, bowel sounds are present. Guy catheter present CVS: Regular rate and rhythm. No murmurs, rubs or gallops Musculoskeletal: No joint or muscle tenderness Extremities: Non tender, no edema, peripheral pulses are present Neuro: Oriented, no tremors, no focal neurological deficits Skin: No rashes Results & Data ([facility]) Vital Signs (Past 12 Hours) Vital Signs Temp Pulse Resp BP Pulse Ox 07/04/19 06:55 36.7 C 72 18 133/58 L 94 Laboratory Results 07/04/19 05:26 07/04/19 05:26 WBC 14.07 H RBC 2.76 L MCV 85.5 MCH 29.0 MCHC 33.9 RDW Std Deviation 48.9 H RDW Coeff of So 15.7 H Plt Count 277 MPV 10.3
--- NOTE | 2019-07-04 16:34 | Hospitalist Progress Note ---
Date of Service July 04, 2019 Assessment & Plan (1) Severe sepsis: (2) UTI (urinary tract infection): Possible catheter Associated UTI severe sepsis Present on admission from [facility] for altered mental status Meet sepsis criteria on admission with Leukocytosis, Tachycardia, Hypotension Lactic acid and procalcitonin elevated CT abd/pelvis showed distended gallbladder with cholelithiasis. Gallbladder U/S showed distended sludge-filled gallbladder is noted with mild layering cholelithiasis. There is no gallbladder wall thickening or definite pericholecystic fluid and the sonographic Kendall sign was unable to be assessed. Received IVF and IV cefepime in the ER, then metronidazole and IV Vanco were adding Blood cx and urine cx positive for gram negative bacilli (proteus mirabilis) Repeat blood cx collected on 06/27 no growth so far WBC 14K today lactic acid normalized and procalcitonin trending down IV rocephin was changed to Unasyn Will transition to oral Augmentin on discharge tomorrow Continue monitor closely (3) Acute renal failure: related to dehydration from sepsis Creatinine on admission 5.9 CT showed no significant obstructive uropathy, renal or ureteral calculi. 10 mm hypodense focus of the interpolar right kidney suggest probable cyst Received IVF Nephrology on board and no indication for dialysis. Creatinine continue to improve to 1.6 today Nephrology on board IV fluid stopped today Continue to hold Lisinopril and Furosemide Avoid nephrotoxins agents Continue monitor BMP (4) Hyperkalemia: Related to acute renal failure K on admission 5.8, continue to improve at 3.4 today No EKG changes, no acidosis Continue monitor BMP (5) Metabolic encephalopathy: Likely multifactorial secondary to sepsis and posibvle med as well Head CT negative for acute findings NG tube discontinued Passed swallow exam and starting on Puree diet (6) Elevated troponin: Mostly related to demand ischemia from COLT/dehydration and sepsis Troponin on admission 0.073, then trending to 0.066 EKG showed no acute ischemic changes Stable (7) Anemia: Hematuria Baseline hemoglobin 9-10 Hgb 8 today Hematuria resolved Aspirin on hold Continue Monitor CBC Will transfuse if Hgb less than 7.5 (8) Rhabdomyolysis: CPK on admission [id number] Received IVF fluid CPK trending down to 910 (9) H/O: CVA (cerebrovascular accident): Continue to hold aspirin due to hematuria (10) Schizoaffective disorder: Continue benztropine, fluphenazine, memantine Will resume Perphenazine Continue Monitor (11) HTN (hypertension): Low BP on admission Continue to hold lisinopril and furosemide due to COLT and Hypotension on admission Continue monitor BP (12) Chronic indwelling Stafford catheter: Chronic Stafford in place Will consider to exchange stafford cath Finasteride and tamsulosin on hold due to Altered mental status Rib fracture CT chest showed healing subacute minimally displaced fractures of the right posterior 11th and 12th ribs. Continue PRN Tylenol for pain (13) DVT prophylaxis: On heparin subq will d/c due to hematuria On SCDs due to hematuria Disposition Plan to discharge tomorrow Continue PT/OT exam Admission and Anticipated Discharge Date Admission Date: June 27, 2019 Subjective Pt was seen and examined Lying in bed with no distress eating his lunch Pt said that he feels much better Denies any chest pain, palpitation, dizziness and SOB Physical Exam Physical Exam: General- No acute distress Head- atraumatic Eyes- PERRL, EOMI, ENT- NG tube in place Neck- supple, no JVD Lungs- No crackles Heart- regular rhythm; no murmur Abdomen- normal bowel sounds, soft, nontender Extremities- no calf tenderness Neuro- PERRL, no facial palsy Skin- warm & dry Results & Data Results & Data ([facility]) Vital Signs (Past 12 Hours) Vital Signs Temp Pulse Resp BP BP Pulse Ox 07/04/19 15:02 36.7 C 70 18 136/74 95 07/04/19 06:55 36.7 C 72 18 133/58 L 94 (1) Schizoaffective disorder Schizoaffective disorder type: unspecified Qualified Code(s): F25.9 - Schizoaffective disorder, unspecified
[2019-07-04] MEDS: MIRTAZAPINE SOLTAB 15 MG PO SCH (20:17)
[2019-07-05] MEDS: AMPICILLIN/SULBACTAM SOD 3,000 MG in 0.9 % SODIUM CHLORIDE 100 ML IV SCH ×4 (03:37→20:48)
[2019-07-05 06:46] LABS: Hematocrit (blood only) 24.9 % (42-52); Hemoglobin 8.2 g/dL (14.0-18.0); Mean Corpuscular Hemoglobin 28.3 pg (25-34); Mean Corpuscular Hgb Conc 32.9 g/dL (32-36); Mean Corpuscular Volume 85.9 fL (80-100); Mean Platelet Volume 9.8 fL (7.4-10.4); Platelet Count 386 K/uL (130-400); RDW Coefficient of Variation 15.4 % (11.5-14.5); RDW Standard Deviation 48.6 fL (36.4-46.3); White Blood Count 15.44 K/uL (4.8-10.8)
[2019-07-05 07:23] LABS: BUN Creatinine Ratio 30.2 (10-20); Calcium 8.1 mg/dl (8.5-10.1); Creatinine Clr Calc Pharmacy 38.1 ml/min; Est GFR (African American) 49.8
[2019-07-05] MEDS: PERPHENAZINE 2 MG TABLET PO SCH ×3 (08:07→20:49)
[2019-07-05] MEDS: MEMANTINE HCL 5 MG TAB PO SCH ×2 (08:07→20:49)
[2019-07-05] MEDS: BENZTROPINE MESYLATE 1 MG TAB PO SCH ×2 (08:07→20:49)
--- NOTE | 2019-07-05 10:28 | Hospitalist Progress Note ---
Date of Service July 05, 2019 Assessment & Plan (1) Severe sepsis: With gram-negative bacteria/severe sepsis secondary to complicated UTI Urine culture positive for enterococcus/Proteus: Blood culture positive for Proteus mirabilis: Repeat blood cx collected on 06/27 no growth On Unasyn (2) UTI (urinary tract infection): Complicated UTI with chronic indwelling Guy catheter/catheter Associated UTI leading to severe sepsis With pyelonephritis CT abdomen pelvis: Noncontrast 06/27/2019: Progressively worsened left greater than right perinephric stranding Meet sepsis criteria on admission with Leukocytosis, Tachycardia, Hypotension - required ICU admission Lactic acid and procalcitonin elevated Urine culture : positive for Proteus Mirabilis and Enterococcus Abx day # 8 for proteus treatment Abx day # 6 for enterococcus treatment difference is two days of cefepime that would not have been effective for enterococcus lactic acid normalized and procalcitonin trending down on IV Unasyn will be changed to PO Augmentin on discharge -will need total 10 days tx for Proteus and Enterococcus infection (3) Acute renal failure: Acute renal failure with underlying CKD stage III, baseline creatinine 1.05 noted on lab on 06/08/2019 Presented with acute renal failure/ATN related to dehydration from sepsis /hypotension/rhabdomyolysis Creatinine on admission 5.9 Received IVF Appreciate input from nephrology Creatinine continue to improve to 1.5 Continue to hold Lisinopril and Furosemide Since patient's presentation with acute renal failure/hyperkalemia, lisinopril will not be resumed on discharge Avoid nephrotoxins agents (4) Hyperkalemia: Related to acute renal failure K on admission 5.8, Potassium level within normal limit PAMELLA inhibitor kept on hold No EKG changes, no acidosis Continue monitor BMP (5) Metabolic encephalopathy: Likely multifactorial secondary to infection/sepsis/dehydration/renal failure with electrolyte imbalance Head CT negative for acute findings Passed swallow exam and starting on Puree diet with aspiration precaution (6) Elevated troponin: Mostly related to demand ischemia from COLT/dehydration and sepsis Troponin on admission 0.073, then trending to 0.066 EKG showed no acute ischemic changes Stable (7) Anemia: Anemia of chronic disease secondary to CKD Baseline hemoglobin 9-10 Worsening of anemia secondary to hematuria Hemoglobin remained stable at 8.2 Continue to hold antiplatelets/aspirin kept on hold Follow CBC (8) Rhabdomyolysis: Due to fall Resolved, CPK on admission [id number] Received IVF fluid CPK level 148, on 07/02/2019 within normal limit (9) H/O: CVA (cerebrovascular accident): Continue to hold aspirin due to hematuria (10) Schizoaffective disorder: Continue benztropine, fluphenazine, memantine Will resume Perphenazine Continue Monitor (11) HTN (hypertension): Low BP on admission Continue to hold lisinopril and furosemide due to COLT and Hypotension on adm ission Continue monitor BP (12) Chronic indwelling Guy catheter: Chronic indwelling Guy catheter with history of chronic bladder outlet obstruction CT abdomen pelvis: Shows prostatomegaly with urinary bladder wall thickening suggestive of chronic bladder outlet obstruction Guy catheter is in place with depending clearly hemorrhage within the urinary bladder lumen Admitted with catheter associated urinary tract infection-leading to sepsis/hematuria Management as outlined above Rib fracture CT chest showed healing subacute minimally displaced fractures of the right posterior 11th and 12th ribs. History of fall Presented with rhabdomyolysis possible secondary to recent fall (13) DVT prophylaxis: On heparin subq will d/c due to hematuria On SCDs due to hematuria Disposition Patient is a resident at [facility] Will need rehab, referral made to [facility] Admission and Anticipated Discharge Date Admission Date: June 27, 2019 Subjective Offers no complaint, oriented to person only Vitals stable afebrile Offers no complaint Review of Systems Review of Systems: All systems reviewed & are unremarkable except as noted in HPI & below Physical Exam Constitutional: WD/WN, vitals as above Eyes: PERRL, conjunctivae normal, anicteric sclerae ENMT: 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, Neck: trachea midline, no thyromegaly Respiratory: normal respiratory effort; no cough Auscultation: no wheezes Cardiovascular: RRR, no murmur, no edema Neurologic: moves all extremities; no focal motor deficits Speech / Cognition: + abnormal speech (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
[2019-07-05] MEDS ORDERED: POLYETHYLENE (MIRALAX) 17 GM PACK PO ONE (16:15)
[2019-07-05] MEDS: MIRTAZAPINE SOLTAB 15 MG PO SCH (20:49)
[2019-07-06] MEDS: AMPICILLIN/SULBACTAM SOD 3,000 MG in 0.9 % SODIUM CHLORIDE 100 ML IV SCH ×3 (02:13→13:15)
[2019-07-06 06:15] LABS: Basophils # (auto) 0.03 K/uL (0-0.2); Basophils % (auto) 0.2 %; Eosinophils # (auto) 0.45 K/uL (0-0.5); Hematocrit (blood only) 23.5 % (42-52); Hemoglobin 7.8 g/dL (14.0-18.0); Immature Granulocytes # (auto) 0.29 K/uL (0.00-0.02); Immature Granulocytes % (auto) 1.9 %; Lymphocytes % (auto) 9.3 %; Mean Corpuscular Hemoglobin 28.4 pg (25-34); Mean Corpuscular Hgb Conc 33.2 g/dL (32-36); Mean Corpuscular Volume 85.5 fL (80-100); Mean Platelet Volume 9.8 fL (7.4-10.4); Monocytes # (auto) 1.25 K/uL (0.11-0.59); Monocytes % (auto) 8.3 %; Neutrophils # (auto) 11.63 K/uL (1.4-6.5); Neutrophils % (auto) 77.3 %; Platelet Count 437 K/uL (130-400); RDW Coefficient of Variation 15.3 % (11.5-14.5); Red Blood Count 2.75 M/uL (4.7-6.1); White Blood Count 15.05 K/uL (4.8-10.8)
[2019-07-06 06:34] LABS: Echinocytes 1+
[2019-07-06 06:53] LABS: BUN Creatinine Ratio 26.8 (10-20); Calcium 7.8 mg/dl (8.5-10.1); Creatinine Clr Calc Pharmacy 42.9 ml/min; Est GFR (African American) 57.5; Est GFR (Non-African American) 49.6; Potassium 4.3 mmol/L (3.5-5.1)
[2019-07-06] MEDS: BENZTROPINE MESYLATE 1 MG TAB PO SCH (08:22)
[2019-07-06] MEDS: MEMANTINE HCL 5 MG TAB PO SCH (08:22)
[2019-07-06] MEDS: PERPHENAZINE 2 MG TABLET PO SCH ×2 (08:22→13:15)
[2019-07-06] MEDS ORDERED: POLYETHYLENE (MIRALAX) 17 GM PACK PO SCH (09:00)
--- NOTE | 2019-07-06 12:48 | Hospitalist Progress Note ---
Date of Service July 06, 2019 Assessment & Plan (1) Severe sepsis: With gram-negative bacteria/severe sepsis secondary to complicated UTI Urine culture positive for enterococcus/Proteus: Blood culture positive for Proteus mirabilis: Repeat blood cx collected on 06/27 no growth Antibiotic changed to Augmentin (2) UTI (urinary tract infection): Complicated UTI with chronic indwelling Guy catheter/catheter Associated UTI leading to severe sepsis With pyelonephritis CT abdomen pelvis: Noncontrast 06/27/2019: Progressively worsened left greater than right perinephric stranding Meet sepsis criteria on admission with Leukocytosis, Tachycardia, Hypotension - required ICU admission Lactic acid and procalcitonin elevated Urine culture : positive for Proteus Mirabilis and Enterococcus Abx day # 8 for proteus treatment Abx day # 6 for enterococcus treatment difference is two days of cefepime that would not have been effective for enterococcus lactic acid normalized and procalcitonin trending down Abx changed to PO Augmentin on discharge -to complete total 10 days tx for Proteus and Enterococcus infection (3) Acute renal failure: Acute renal failure with underlying CKD stage III, baseline creatinine 1.05 noted on lab on 06/08/2019 Presented with acute renal failure/ATN related to dehydration from sepsis /hypotension/rhabdomyolysis Creatinine on admission 5.9 Received IVF Appreciate input from nephrology Creatinine continue to improve to 1.5 Continue to hold Lisinopril and Furosemide Since patient's presentation with acute renal failure/hyperkalemia, lisinopril will not be resumed on discharge Avoid nephrotoxins agents (4) Hyperkalemia: Related to acute renal failure K on admission 5.8, Potassium level within normal limit PAMELLA inhibitor kept on hold Patient's presentation with hyperkalemia/acute renal failure, would not be a candidate for PAMELLA or inhibitor Lisinopril is not resumed on discharge (5) Metabolic encephalopathy: Likely multifactorial secondary to infection/sepsis/dehydration/renal failure with electrolyte imbalance Head CT negative for acute findings Passed swallow exam and starting on Puree diet with aspiration precaution (6) Elevated troponin: Mostly related to demand ischemia from COLT/dehydration and sepsis Complaint of chest pain Troponin on admission 0.073, then trending to 0.066 EKG showed no acute ischemic changes Stable (7) Anemia: Anemia of chronic disease secondary to CKD Baseline hemoglobin 9-10 Worsening of anemia secondary to hematuria Hemoglobin noted to be 7.8 No episode of hematuria Aspirin discontinued Repeat lab work/CBC in 1 week (8) Rhabdomyolysis: Due to fall Resolved, CPK on admission 13105 Received IVF fluid CPK level 14-, on 07/02/2019 within normal limit (9) H/O: CVA (cerebrovascular accident): Aspirin discontinued secondary to hematuria/anemia (10) Schizoaffective disorder: Outpatient meds resumed (11) HTN (hypertension): Lisinopril discontinued for COLT/hyperkalemia Low-dose Lasix resumed on discharge as renal status has been stable (12) Chronic indwelling Guy catheter: Chronic indwelling Guy catheter with history of chronic bladder outlet obstruction CT abdomen pelvis: Shows prostatomegaly with urinary bladder wall thickening suggestive of chronic bladder outlet obstruction Admitted with catheter associated urinary tract infection-leading to sepsis/hematuria Hematuria has resolved Treated with antibiotics, aspirin discontinued, Rib fracture CT chest showed healing subacute minimally displaced fractures of the right posterior 11th and 12th ribs. History of fall Presented with rhabdomyolysis possible secondary to recent fall PT OT evaluation appreciated, We will need rehab/SNF (13) DVT prophylaxis: On SCDs due to hematuria Disposition pt is stable to be discharged to SNF at [facility] today Admission and Anticipated Discharge Date Admission Date: June 27, 2019 Subjective Offers no new complaint, no fever or chills, vitals stable Stable to be discharged to rehab today Physical Exam Constitutional: WD/WN, vitals as above Eyes: PERRL, conjunctivae normal, anicteric sclerae Neck: trachea midline, no thyromegaly Respiratory: normal respiratory effort; no cough Auscultation: no wheezes Cardiovascular: RRR, no murmur, no edema Neurologic: moves all extremities; no focal motor deficits Speech / Cognition: + abnormal speech (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
--- NOTE | 2019-07-06 18:53 | Discharge Summary ---
Date of Service July 06, 2019 Admission HPI Per Admitting Provider 79-year-old male who presents the ED from [facility] for evaluation of altered mental status. History is currently unobtainable from the patient. I attempted to call the staff at [facility] however nursing staff is unavailable this evening. Patient was recently admitted to [facility] 06/04 through 06/08 and was treated for pneumonia and possible UTI. Patient was discharged on doxycycline and Augmentin. According to ED notes, patient was found today to be very lethargic and not responsive. The patient typically is ambulatory around the facility and interacts with people. There is a question of a fall. The history is not clear. Upon arrival to the ED, patient found to be hypotensive. Labs show WBC 30K, creatinine 6.5, potassium 5.9. Patient was given IVF and IV cefepime. 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 ) Psychiatric Orientation: alert Affect: + flat affect Discharge Data Allergies Allergy/AdvReac Type Severity Reaction Status Date / Time olanzapine Allergy Mild "IT DOES Verified 06/27/19 17:40 NOT WORK" risperidone Allergy Unknown UNKNOWN Verified 06/27/19 17:40 lisinopril AdvReac Severe Verified 07/05/19 11:14 Influenza Virus Vaccines AdvReac PAIN AT Verified 06/27/19 17:40 INJECTION SITE Tricyclic Antidepressants Allergy Unknown Uncoded 07/05/19 11:14 Consultations 06/27/19 18:36 ED Decision to Admit Stat 06/27/19 20:41 Consult Case Management - Discharge Planning Routine Consult Hand Candy Dipper Routine Consult Nephrology Routine Ordered Studies 06/27/19 16:45 CT head/brain wo con Stat 06/27/19 19:07 CT abd pelvis wo con Stat CT chest wo con Stat 06/27/19 21:55 US gallbladder Urgent Hospital Course (1) Severe sepsis: With gram-negative bacteria/severe sepsis secondary to complicated UTI Urine culture positive for enterococcus/Proteus: Blood culture positive for Proteus mirabilis: Repeat blood cx collected on 06/27 no growth Antibiotic changed to Augmentin (2) UTI (urinary tract infection): Complicated UTI with chronic indwelling Peña catheter/catheter Associated UTI leading to severe sepsis With pyelonephritis CT abdomen pelvis: Noncontrast 06/27/2019: Progressively worsened left greater than right perinephric stranding Meet sepsis criteria on admission with Leukocytosis, Tachycardia, Hypotension - required ICU admission Lactic acid and procalcitonin elevated Urine culture : positive for Proteus Mirabilis and Enterococcus Abx day # 8 for proteus treatment Abx day # 6 for enterococcus treatment difference is two days of cefepime that would not have been effective for enterococcus lactic acid normalized and procalcitonin trending down Abx changed to PO Augmentin on discharge -to complete total 10 days tx for Proteus and Enterococcus infection (3) Acute renal failure: Acute renal failure with underlying CKD stage III, baseline creatinine 1.05 noted on lab on 06/08/2019 Presented with acute renal failure/ATN related to dehydration from sepsis /hypotension/rhabdomyolysis Creatinine on admission 5.9 Received IVF Appreciate input from nephrology Creatinine continue to improve to 1.5 Continue to hold Lisinopril and Furosemide Since patient's presentation with acute renal failure/hyperkalemia, lisinopril will not be resumed on discharge Avoid nephrotoxins agents Repeat BMP at the rehab in (4) Hyperkalemia: Related to acute renal failure K on admission 5.8, Potassium level within normal limit PAMELLA inhibitor kept on hold Patient's presentation with hyperkalemia/acute renal failure, would not be a candidate for PAMELLA or inhibitor Lisinopril is not resumed on discharge (5) Metabolic encephalopathy: Likely multifactorial secondary to infection/sepsis/dehydration/renal failure with electrolyte imbalance Head CT negative for acute findings Passed swallow exam and starting on Puree diet with aspiration precaution (6) Elevated troponin: Mostly related to demand ischemia from COLT/dehydration and sepsis Complaint of chest pain Troponin on admission 0.073, then trending to 0.066 EKG showed no acute ischemic changes Stable (7) Anemia: Anemia of chronic disease secondary to CKD Baseline hemoglobin 9-10 Worsening of anemia secondary to hematuria Hemoglobin noted to be 7.8 No episode of hematuria Aspirin discontinued Repeat lab work/CBC on 07/10/2019 (8) Rhabdomyolysis: Due to fall Resolved, CPK on admission [id number] Received IVF fluid CPK level 14-, on 07/02/2019 within normal limit (9) H/O: CVA (cerebrovascular accident): Aspirin discontinued secondary to hematuria/anemia (10) Schizoaffective disorder: Outpatient meds resumed (11) HTN (hypertension): Lisinopril discontinued for COLT/hyperkalemia Low-dose Lasix resumed on discharge as renal status has been stable (12) Chronic indwelling Peña catheter: Chronic indwelling Peña catheter with history of chronic bladder outlet obstruction CT abdomen pelvis: Shows prostatomegaly with urinary bladder wall thickening suggestive of chronic bladder outlet obstruction Admitted with catheter associated urinary tract infection-leading to sepsis/hematuria Hematuria has resolved Treated with antibiotics, aspirin discontinued, Rib fracture CT chest showed healing subacute minimally displaced fractures of the right posterior 11th and 12th ribs. History of fall Presented with rhabdomyolysis possible secondary to recent fall PT OT evaluation appreciated, We will need rehab/SNF (13) DVT prophylaxis: On SCDs due to hematuria Disposition pt is stable to be discharged to SNF at [facility] today Total Time Total Time Spent Total Time Spent (In Minutes): 25 minutes Total Time Includes: Discharge Planning and Medication Reconciliation Discharge Plan Discharge Items Patient Disposition: Transfer [facility] Reason For Visit: SEPSIS, RENAL FAILURE Discharge Diagnosis: severe sepsis /complicated UTI with chronic indwelling catheter /chronic bladder outlet obstruction Activity: As commented below Activity Comment: Continue physical and occupation therapy at rehab Non-emergency contact: Primary Care Provider Call non-emergency contact if: you have any medication questions Follow-up/Referrals: GWEN ORTIZ GENIE [Primary Care Provider] - Diet: Heart Healthy Diet Texture: Pureed (blended smooth) Ambulatory Orders: Basic Metabolic Panel (Routine) Timeframe: 20190710 Location: Determined by Patient Ordered By: Mesha Arciniega Complete Blood Count no Diff (Routine) Timeframe: 20190710 Location: Determined by Patient Ordered By: Mesha Arciniega Addtl Attending Provider Instructions: DO NOT TAKE LISINOPRIL DO NOT TAKE ASPIRIN -CAUSING HEMATURIA PATIENT HAS CHRONIC INDWELLING PEÑA CATHETER FOR CHRONIC BLADDER OUTLET OBSTRUCTION PLEASE CHANGE PEÑA CATHETER EVERY 30 DAYS /MONTHLY Pending Studies at Discharge: Yes Studies:: BASIC METABOLIC PANEL /COMPLETE BLOOD COUNT ON Wednesday07/10/19 Stand-Alone Forms: My [facility] Skilled Items Patient informed of condition?: Yes DNR: No Discharge Level of Care: Skilled Communicable Disease: No Discharge Prognosis: Stable Lines: None Urinary Catheter: Yes Medications and DC Order Prescriptions: New amoxicillin-pot clavulanate [Augmentin] 875-125 mg tablet 1 tab PO BID Qty: 10 RF: 0 Continued lidocaine HCl 2 % Jelly 10 ml EXT Q6H PRN (Reason: pain at urinary cath site) Qty: 50 RF: 1 tamsulosin 0.4 mg Capsule 0.4 mg PO QAM@0800 RF: 0 acetaminophen [Tylenol] 325 mg Tablet 650 mg PO Q4 MDD 3G PRN (Reason: Fever Or Pain) RF: 0 perphenazine 2 mg Tablet 6 mg PO TID RF: 0 furosemide 20 mg Tablet 20 mg PO QAM@0800 RF: 0 loperamide [Imodium A-D] 2 mg Capsule 2 mg PO Q3H PRN (Reason: Diarrhea) RF: 0 polyethylene glycol 3350 [Miralax] 17 gram Powder In Packet 17 g PO DAILY PRN (Reason: Constipation) RF: 0 calcium carbonate [Calcium Antacid] 400 mg calcium (1,000 mg) Tablet,Chewable 500 mg PO Q4 PRN (Reason: Dyspepsia) RF: 0 simethicone 80 mg Tablet,Chewable 80 mg PO TID PRN (Reason: gas/bloating) RF: 0 Muscle Rub 15-10 % Cream 1 applic TOPICAL QID PRN (Reason: Pain) RF: 0 Cepacol Sore Throat (anand-men) 15-2.6 mg Lozenge 1 sheila PO Q4 PRN (Reason: Sore Throat) RF: 0 fluphenazine decanoate 25 mg/mL Solution 25 mg IM MONTHLY RF: 0 mirtazapine 30 mg Tablet 30 mg PO HS@2000 RF: 0 benztropine 1 mg Tablet 1 mg PO BID RF: 0 docusate sodium 100 mg Tablet 100 mg PO BID RF: 0 Artificial Tears (PF) Dropperette 1 drp OPB BID RF: 0 memantine 10 mg Tablet 10 mg PO BID RF: 0 Calmoseptine 0.44-20.6 % Ointment 1 applic TOPICAL DAILY RF: 0 fluphenazine HCl 2.5 mg tablet 2.5 mg PO Q6H PRN (Reason: Mood Stabilizer) RF: 0 finasteride 5 mg Tablet 5 mg PO QAM@0800 RF: 0 multivitamin with iron Tablet 1 tab PO QAM@0800 RF: 0 Discontinued lisinopril 5 mg Tablet 5 mg PO QAM@0800 RF: 0 aspirin 81 mg Tablet,Delayed Release (Dr/Ec) 81 mg PO QAM@0800 RF: 0 Discharge Orders: Discharge Order (Routine); Ordered 07/06/19 Ordered By: Mesha Arciniega Admission Data Admit Date/Time: 06/27/19 19:04 Attending Provider: Mesha Arciniega Admit Provider: Renaldo Garcia Primary Care Provider: GWEN ORTIZ [facility] Other Providers: Renaldo Garcia ; Manda, ; Mesha Arciniega ; Mtathew Rivera ; Zonia Kirby Other Interventions: Discharge Summary Assessment (RN) Last Done: 07/06/19 12:52 DC Date/Time DO NOT enter until pt leaves facility: 07/06/19 14:30
== END 2019-07-06 14:30 | DRG 698 ==
LOC: ED 16:18 → 1E 19:04 → SUATTDRO 19:04 → 1E 19:52 → 2E 06-28 15:49 → 2W 07-03 18:16

== ENCOUNTER 2020-02-09 11:24 | Inpatient (IN) ==
[2020-02-09] MEDS ORDERED: OLANZapine 10 MG/2.1 ML SDV IM STA (12:28)
[2020-02-09] MEDS ORDERED: SODIUM CHLORIDE 0.9% 1000ML 1,000 ML IV ONE (12:28)
--- NOTE | 2020-02-09 13:09 | XRay Report ---
SINGLE VIEW CHEST CLINICAL HISTORY: Sepsis. FINDINGS: 2 AP, portable, upright chest radiographs are compared to study dated 06/28/2019 and correla markos with chest CT dated 06/27/2019. The examination is degraded by portable technique and patient rota tion. The heart is enlarged noting atherosclerotic calcification of the thoracic ureter. There is pu lmonary vascular congestion. Emphysematous change and chronic interstitial thickening are similar to previous. There is dense airspace consolidation at the left lung base. Patchy airspace opacities are seen throughout both lungs. A small left pleural effusion is noted. No pneumothorax is seen. The skel etal structures are osteopenic. The bony thorax is grossly intact. IMPRESSION: 1. Cardiomegaly and emphysema with evidence of congestive failure. 2. Dense airspace consolidation is seen at the left lung base. Correlate clinically for evidence of p neumonia/aspiration pneumonitis. Radiographic follow-up to resolution is recommended. 3. Patchy opacities are seen throughout both lungs. This could represent an infectious/inflammatory p neumonitis and/or developing pulmonary edema. ACT 112: Negative or not required by law. Electronically signed by: Jason Camacho M.D. 02/09/2020 1:07 PM
[2020-02-09 13:52] LABS: Appearance Urine Turbid (Clear); Bilirubin Urine Negative (Negative); Blood Urine 1+ (Negative); Color Urine Yellow; Glucose Urine UA Negative (Negative); Ketones Urine Negative (Negative); Leukocyte Esterase Urine 3+ (Negative); Nitrite Urine Negative (Negative); Urobilinogen Urine Negative (Negative); pH Urine 8.5 (4.5-7.5)
[2020-02-09 13:54] LABS: Protein Urine 1+ (Negative)
[2020-02-09 13:55] LABS: Sulfosalicylic Acid Urine Positive (Negative)
[2020-02-09 13:57] LABS: Epithelial Cell Urine 0-5 /lpf (0-5); Mucus Urine Present (None Prsent); Triple Phosphate Crystal Urine Present (None Prsent)
[2020-02-09 13:58] LABS: Bacteria Urine 2+ (Negative); WBC Urine >30 /hpf (0-5)
[2020-02-09 14:57] LABS: Base Excess VBG 1.9 mEq/L; HCO3 VBG 27 mmol/L; PCO2 VBG 45 mmHg (38-50); PO2 VBG 30 mmHg
[2020-02-09 14:58] LABS: Hematocrit (blood only) 28.6 % (42-52); Hemoglobin 9.6 g/dL (14.0-18.0); Mean Corpuscular Hemoglobin 28.3 pg (25-34); Mean Corpuscular Hgb Conc 33.6 g/dL (32-36); Mean Corpuscular Volume 84.4 fL (80-100); Platelet Count 327 K/uL (130-400); RDW Coefficient of Variation 16.7 % (11.5-14.5); RDW Standard Deviation 51.2 fL (36.4-46.3); Red Blood Count 3.39 M/uL (4.7-6.1); White Blood Count 20.38 K/uL (4.8-10.8)
[2020-02-09 15:00] LABS: Oxygen Saturation VBG < 60.0 %
[2020-02-09 15:10] LABS: INR 1.2 (0.9-1.1); Partial Thromboplastin Ratio 1.2; Partial Thromboplastin Time 34.7 Seconds (21.0-31.0); Prothrombin Time 12.9 Seconds (9.0-12.0)
[2020-02-09 15:14] LABS: Alanine Aminotransferase 15 U/L (12-78); Albumin Level 2.2 gm/dl (3.4-5.0); Aspartate Aminotransferase 18 U/L (15-37); BUN Creatinine Ratio 22.4 (10-20); Bilirubin Direct 0.2 mg/dl (0-0.2); Blood Urea Nitrogen 34 mg/dl (7-18); Carbon Dioxide 27 mmol/L (21-32); Chloride 114 mmol/L (98-107); Creatinine Clr Calc Pharmacy 28.8 ml/min; Est GFR (African American) 50.6; Est GFR (Non-African American) 43.7; Glucose 80 mg/dl (70-99); Magnesium 2.2 mg/dl (1.8-2.4); Sodium 148 mmol/L (136-145)
--- NOTE | 2020-02-09 15:18 | CT Scan Report ---
CT head/brain wo con CLINICAL HISTORY: Acute change in mental status. COMPARISON STUDY: 06/27/2019 TECHNIQUE: Axial CT of the brain is performed from the vertex to the skull base. IV contrast was not administered for this examination. A dose lowering technique was utilized adhering to the principles of ALARA. CT DOSE: 1458.88 mGy.cm FINDINGS: The examination is motion compromised. 3 attempts at imaging were made. No intra or extra-axial mass lesions are visualized. There is no CT evidence of acute cortical infarc tion. There is no evidence of midline shift. There is no acute hemorrhage. No calvarial fractures ar e visualized. There are patchy white matter hypodensities likely on a small vessel basis. There is global atrophy. There is no evidence of pathologic ventricular dilatation. There is no evidence of acute sinusitis IMPRESSION: 1. Motion compromised study 2. No acute intracranial findings ACT 112: Negative or not required by law. Electronically signed by: Atif Campuzano M.D. 02/09/2020 3:16 PM
--- NOTE | 2020-02-09 15:22 | Emergency Department Note ---
Impression & Plan Sepsis, Metabolic encephalopathy, UTI (urinary tract infection), Pneumonia, CKD (chronic kidney disease), stage III ED Provider Note NAME: EVELIN RAMOS AGE: 79 SEX: M ARRIVES VIA: Ambulance INFORMANT: Patient, ED PROVIDER(S): Edgardo Rangel MD CHIEF COMPLAINT: Confusion, agitation, History of bacteremia. PLAN: Disposition: Admit MEDICAL DECISION MAKING: The patient is a 79 y/o gentleman with a pmhx of schizoaffective d/o, CVA/ ?dementia, history of metabolic encephalopathy, ? history of lung cancer, urinary retention 2/2 BPH with in-dwelling stafford catheter who presents to the emergency department from his SNF for worsening confusion/agitation from baseline. It is unclear from EMS report after speaking with staff to what degree the patient is worse and when symptoms began. On arrival the patient is in NAD, 87% RA and otherwise VSS. Would not allow RN to obtain temperature. He appears cachectic and clinically dry. The patient is nonverbal and easily combative. He moves all extremities equally. Lungs with scattered rhonchi with underlying wheeze. CXR with left basilar opacity concerning for aspiration pna. CT head negative for acute process. WBC, 20K with neturophil predominance. H/H approximate to prior. Platelets wnl. VBG unremarkable. Chemistry without acidosis. Sodium 148 and Cr. 1.5 c/w patient's clinically dry appearance. Lactate wnl. LFTs and electrolytes unremarkable. Troponin negative/undetectable. Procalcitonin 0.12. BNP of unclear significance at this time, given the patient's clinically dry appearance. UA c/w infection. Covid19 negative. Patient ordered for empiric abx with Zosyn and Vancomycin. Case was discussed with Liza Rees, [facility] PAC, with Dr. Leilani Alcazar hospitalist who will evaluate the patient for admission. Triage Nursing notes reviewed and agree them. Additional history obtained from EMS Prior medical records reviewed Vital Signs: reviewed and remarkable for no significant abnormalities Differential diagnosis: Infection, dehydration, metabolic abnormality, hypo/hyperglycemia, electrolyte disturbance, anemia, hypoxia, cardiac sources, intracerebral event, toxicologic, neurologic, as well as other pathologies. ER treatment provided: See below. Diagnostics interpreted by me: Cardiac Monitoring: An order for continuous cardiac monitoring was placed and demonstrated NSR, 94 bpm, no ectopy. Laboratory studies: See below Imaging studies: CT head/brain wo con CLINICAL HISTORY: Acute change in mental status. COMPARISON STUDY: 06/27/2019 TECHNIQUE: Axial CT of the brain is performed from the vertex to the skull base. IV contrast was not administered for this examination. A dose lowering technique was utilized adhering to the principles of ALARA. CT DOSE: 1458.88 mGy.cm FINDINGS: The examination is motion compromised. 3 attempts at imaging were made. No intra or extra-axial mass lesions are visualized. There is no CT evidence of acute cortical infarction. There is no evidence of midline shift. There is no acute hemorrhage. No calvarial fractures are visualized. There are patchy white matter hypodensities likely on a small vessel basis. There is global atrophy. There is no evidence of pathologic ventricular dilatation. There is no evidence of acute sinusitis IMPRESSION: 1. Motion compromised study 2. No acute intracranial findings SINGLE VIEW CHEST CLINICAL HISTORY: Sepsis. FINDINGS: 2 AP, portable, upright chest radiographs are compared to study dated 06/28/2019 and correlated with chest CT dated 06/27/2019. The examination is degraded by portable technique and patient rotation. The heart is enlarged noting atherosclerotic calcification of the thoracic ureter. There is pulmonary vascular congestion. Emphysematous change and chronic interstitial thickening are similar to previous. There is dense airspace consolidation at the left lung base. Patchy airspace opacities are seen throughout both lungs. A small left pleural effusion is noted. No pneumothorax is seen. The skeletal structures are osteopenic. The bony thorax is grossly intact. IMPRESSION: 1. Cardiomegaly and emphysema with evidence of congestive failure. 2. Dense airspace consolidation is seen at the left lung base. Correlate clinically for evidence of pneumonia/aspiration pneumonitis. Radiographic follow-up to resolution is recommended. 3. Patchy opacities are seen throughout both lungs. This could represent an infectious/inflammatory pneumonitis and/or developing pulmonary edema. Consultation(s): Case was discussed with Ottoniel Ramírez, with Dr. Leilani Alcazar hospitalist who will evaluate the patient for admission. HPI: The patient is a 79 y/o gentleman with a pmhx of schizoaffective d/o, CVA/dementia,history of metabolic encephalopathy, ? history of lung cancer, urinary retention 2/2 BPH with in-dwelling stafford catheter who presents to the emergency department from his SNF for worsening confusion/agitation from baseline. It is unclear from EMS report after speaking with staff to what degree the patient is worse and when symptoms began. ROS: See above HPI for pertinent positives & negatives. Otherwise ROS is limited due to patient's altered mental status. PAST MEDICAL HISTORY:See Below PAST SURGICAL HISTORY:See Below FAMILY HISTORY:See Below SOCIAL HISTORY:See Below HOME MEDICATIONS:See Below ALLERGIES:See Below VITALS:See Below PHYSICAL EXAMINATION: GENERAL: Awake, nonverbal, chronically ill/cachectic-appearing, in no distress HENT: Normocephalic, atraumatic. Oropharynx with dry/crackerdf mucous membranes. Right upper lip swelling/growth. EYES: Normal conjunctiva. Sclera non-icteric. NECK: Supple. No nuchal rigidity. FROM. No JVD. RESPIRATORY: Scattered rhonchi. CARDIAC: Tachycardic rate, normal rhythm. Extremities warm and well perfused. Pulses equal. ABDOMEN: Soft, non-distended. No tenderness to palpation. No rebound or guarding. No masses. RECTAL: Deferred. MUSCULOSKELETAL: Chest examination reveals no tenderness. The back is symmetrical on inspection without obvious abnormality. There is no CVA tenderness to palpation. No joint edema. LOWER EXTREMITIES: Calves are equal size bilaterally and non-tender. No edema. No discoloration. NEURO: Confused, nonverbal. Easily agitated. No focal sensory or motor deficits noted. Appears to move all extremities equally with generalized weakness. SKIN: No rash or jaundice noted. ED COURSE: Critical Care: I have personally spent greater than 45 minutes of critical care time in the direct management of this patient. This includes bedside care, interpretation of diagnostic studies, and testing, discussion with consultants, patient, and family members, and other required patient management activities. This 45 minutes is in excess of all separately billable procedures. Edgardo Rangel MD Past Med/Surg History Medical History (Updated 02/10/20 @ 01:44 by Edgardo Rangel MD) Anemia Anxiety BPH loc w urin obs/LUTS CKD (chronic kidney disease), stage III Dementia Dysphagia following CVA H/O: CVA (cerebrovascular accident) Hemangioma of lip HTN (hypertension) Indwelling Stafford catheter present Muscle weakness (generalized) Pulmonary nodule Schizoaffective disorder Sepsis due to Pseudomonas March 2019 Urinary retention Urinary retention due to benign prostatic hyperplasia Surgical History Hx of cataract surgery S/P tonsillectomy Family History Other Hypertension Social History Smoking Status: Unknown if ever smoked Years Smoked: 50; Second Hand Exposure: No; Hx Alcohol Use: No Hx Substance Use: No Preferred Language: [place] Communication Ability: Impaired Physical Testing Supervisor Required: No Beliefs That Will Affect Care: None marital status: Single Current Living Situation: Skilled Nursing Current Living Situation Comment: [facility] Other Information That Helps Us Care for You: No Feels Safe at Home: Yes Safety Concerns: Feels Safe At This Time Assistive Devices: None Allergies Allergies Allergy/AdvReac Type Severity Reaction Status Date / Time olanzapine Allergy Mild "IT DOES Verified 02/09/20 12:53 NOT WORK" risperidone Allergy Unknown UNKNOWN Verified 02/09/20 12:53 lisinopril AdvReac Severe Verified 02/09/20 12:53 Influenza Virus Vaccines AdvReac PAIN AT Verified 02/09/20 12:53 INJECTION SITE Tricyclic Antidepressants Allergy Unknown Unknown Uncoded 02/09/20 12:53 Home Meds Home Medications Medication Instructions Recorded Confirmed Artificial Tears (PF) 1 drp OPB BID 11/22/18 02/09/20 benztropine 1 mg PO BID 11/22/18 02/09/20 docusate sodium 100 mg PO BID 11/22/18 02/09/20 fluphenazine decanoate 25 mg IM MONTHLY 11/22/18 02/09/20 memantine 10 mg PO BID 11/22/18 02/09/20 mirtazapine 30 mg PO HS@2000 11/22/18 02/09/20 acetaminophen [Tylenol] 650 mg PO Q4 PRN MDD 3G 03/15/19 02/09/20 tamsulosin 0.4 mg PO QAM@0800 03/15/19 02/09/20 finasteride 5 mg PO QAM@0800 05/07/19 02/09/20 fluphenazine HCl 2.5 mg PO Q6H PRN 05/07/19 02/09/20 perphenazine 0 mg PO UD 06/05/19 02/09/20 Saccharomyces boulardii [Florastor] 250 mg PO BID 02/09/20 02/09/20 bisacodyl [Dulcolax (bisacodyl)] 10 mg IN DAILY PRN 02/09/20 02/09/20 lactase [Lactaid] 3,000 unit PO TIDM 02/09/20 02/09/20 melatonin 0 mg PO UD PRN 02/09/20 02/09/20 multivitamin with minerals 1 tab PO DAILY 02/09/20 02/09/20 Results & Data (ED) Vital Signs Vital Signs - 24 hr 02/09/20 11:16 02/09/20 11:55 02/09/20 12:11 Temperature Temperature Source Pulse Rate 84 79 Pulse Rate [Right Foot] Pulse Rate from SpO2 Sensor 80 Respiratory Rate 30 H 30 H Respiratory Effort / Characteristics Spontaneous Respiratory Depth Shallow Respiratory Pattern Tachypnea Blood Pressure 140/82 116/69 Blood Pressure [Right Calf] Blood Pressure Mean 101 74 Blood Pressure Mean [Right Calf] Blood Pressure Position Sitting Pulse Oximetry 87 L 87 L 98 Oxygen Delivery Method Room Air Room Air Nasal Cannula Oxygen Flow Rate Sepsis Recent Fever Within 48 Hours No Sepsis New/Unexplained Change in Mental Status Yes Sepsis Action Taken by Nursing No Action Required Oxygen Flow Rate - Titration 4 Pulse Oximetry Post Tiitration 96 02/09/20 12:15 02/09/20 12:20 02/09/20 12:30 Temperature Temperature Source Pulse Rate 76 78 Pulse Rate [Right Foot] 81 Pulse Rate from SpO2 Sensor 77 78 Respiratory Rate 28 H 21 21 Respiratory Effort / Characteristics Respiratory Depth Respiratory Pattern Blood Pressure Blood Pressure [Right Calf] 116/69 Blood Pressure Mean Blood Pressure Mean [Right Calf] 84 Blood Pressure Position Pulse Oximetry 97 99 99 Oxygen Delivery Method Nasal Cannula Oxygen Flow Rate 4 Sepsis Recent Fever Within 48 Hours Sepsis New/Unexplained Change in Mental Status Sepsis Action Taken by Nursing Oxygen Flow Rate - Titration Pulse Oximetry Post Tiitration 02/09/20 13:00 02/09/20 13:22 02/09/20 13:30 Temperature Temperature Source Pulse Rate 82 85 78 Pulse Rate [Right Foot] Pulse Rate from SpO2 Sensor 81 82 74 Respiratory Rate 24 27 H 18 Respiratory Effort / Characteristics Respiratory Depth Respiratory Pattern Blood Pressure 137/77 Blood Pressure [Right Calf] Blood Pressure Mean 98 Blood Pressure Mean [Right Calf] Blood Pressure Position Pulse Oximetry 94 90 95 Oxygen Delivery Method Oxygen Flow Rate Sepsis Recent Fever Within 48 Hours Sepsis New/Unexplained Change in Mental Status Sepsis Action Taken by Nursing Oxygen Flow Rate - Titration Pulse Oximetry Post Tiitration 02/09/20 14:00 02/09/20 14:30 02/09/20 15:00 Temperature Temperature Source Pulse Rate 79 77 105 H Pulse Rate [Right Foot] Pulse Rate from SpO2 Sensor 81 77 76 Respiratory Rate 28 H 25 H 21 Respiratory Effort / Characteristics Respiratory Depth Respiratory Pattern Blood Pressure Blood Pressure [Right Calf] Blood Pressure Mean Blood Pressure Mean [Right Calf] Blood Pressure Position Pulse Oximetry 92 95 95 Oxygen Delivery Method Oxygen Flow Rate Sepsis Recent Fever Within 48 Hours Sepsis New/Unexplained Change in Mental Status Sepsis Action Taken by Nursing Oxygen Flow Rate - Titration Pulse Oximetry Post Tiitration 02/09/20 15:17 02/09/20 16:23 02/09/20 16:29 Temperature 34.2 C L Temperature Source Rectal Pulse Rate 71 Pulse Rate [Right Foot] Pulse Rate from SpO2 Sensor 72 Respiratory Rate 18 Respiratory Effort / Characteristics Respiratory Depth Respiratory Pattern Blood Pressure 138/65 Blood Pressure [Right Calf] Blood Pressure Mean 74 Blood Pressure Mean [Right Calf] Blood Pressure Position Pulse Oximetry 95 96 Oxygen Delivery Method Room Air Room Air Oxygen Flow Rate Sepsis Recent Fever Within 48 Hours Sepsis New/Unexplained Change in Mental Status Sepsis Action Taken by Nursing Oxygen Flow Rate - Titration Pulse Oximetry Post Tiitration 02/09/20 16:36 02/09/20 16:40 02/09/20 17:00 Temperature Temperature Source Pulse Rate Pulse Rate [Right Foot] Pulse Rate from SpO2 Sensor 73 70 66 Respiratory Rate Respiratory Effort / Characteristics Respiratory Depth Respiratory Pattern Blood Pressure 138/65 147/75 H 130/65 Blood Pressure [Right Calf] Blood Pressure Mean 74 93 83 Blood Pressure Mean [Right Calf] Blood Pressure Position Pulse Oximetry 95 97 96 Oxygen Delivery Method Oxygen Flow Rate Sepsis Recent Fever Within 48 Hours Sepsis New/Unexplained Change in Mental Status Sepsis Action Taken by Nursing Oxygen Flow Rate - Titration Pulse Oximetry Post Tiitration Laboratory Data Result diagrams: 02/09/20 14:37 02/09/20 21:46 Lab Results 02/09/20 02/09/20 02/09/20 Range/Units 12:01 13:07 14:37 WBC (4.8-10.8) K/uL RBC (4.7-6.1) M/uL Hgb (14.0-18.0) g/dL Hct (42-52) % MCV (80-100) fL MCH (25-34) pg MCHC (32-36) g/dL RDW Std Deviation (36.4-46.3) fL RDW Coeff of So (11.5-14.5) % Plt Count (130-400) K/uL MPV (7.4-10.4) fL Neutrophils % (Manual) % Lymphocytes % (Manual) % Monocytes % (Manual) % Neutrophils # (Manual) (1.4-6.5) K/uL Total Absolute Neuts (1.4-6.5) K/uL Lymphocytes # (Manual) (1.2-3.4) K/uL Total Abs Lymphocytes (1.2-3.4) K/uL Monocytes # (Manual) (0.11-0.59) K/uL Acanthocytes (Spur) PT (9.0-12.0) Seconds INR (0.9-1.1) APTT (21.0-31.0) Seconds PTT Ratio VBG pH (7.36-7.41) VBG pCO2 (38-50) mmHg VBG pO2 mmHg VBG HCO3 mmol/L VBG O2 Saturation % VBG Base Excess mEq/L Barometric Pressure mm/Hg Sodium (136-145) mmol/L Potassium (3.5-5.1) mmol/L Chloride (98-107) mmol/L Carbon Dioxide (21-32) mmol/L Anion Gap (3-11) BUN (7-18) mg/dl Creatinine (0.6-1.4) mg/dl Est Cr Clr Drug Dosing ml/min Est GFR ( Amer) Est GFR (Non-Af Amer) BUN/Creatinine Ratio (10-20) Glucose (70-99) mg/dl POC Glucose 101 H (70-99) mg/dl Lactate (0.4-2.0) mmol/L Calcium (8.5-10.1) mg/dl Phosphorus (2.5-4.9) mg/dl Magnesium (1.8-2.4) mg/dl Total Bilirubin (0.2-1) mg/dl Direct Bilirubin (0-0.2) mg/dl AST (15-37) U/L ALT (12-78) U/L Alkaline Phosphatase (45-117) U/L Troponin I (0-0.045) ng/ml NT-Pro-B Natriuret Pep (0-1800) pg/ml Total Protein (6.4-8.2) gm/dl Albumin (3.4-5.0) gm/dl Globulin (2.5-4.0) gm/dl Albumin/Globulin Ratio (0.9-2) Procalcitonin 0.12 (0-0.5) ng/ml TSH (0.300-4.500) uIu/ml Urine Color Yellow Urine Appearance Turbid A (Clear) Urine pH 8.5 H (4.5-7.5) Ur Specific [place] 1.010 (1.000-1.030) Urine Protein 1+ H (Negative) Urine Glucose (UA) Negative (Negative) Urine Ketones Negative (Negative) Urine Blood 1+ H (Negative) Urine Nitrite Negative (Negative) Urine Bilirubin Negative (Negative) Urine Urobilinogen Negative (Negative) Ur Leukocyte Esterase 3+ H (Negative) Urine RBC 5-10 H (0-4) /hpf Urine WBC >30 H (0-5) /hpf Ur Epithelial Cells 0-5 (0-5) /lpf Triple Phos Crystals Present A (None Prsent) Urine Bacteria 2+ H (Negative) Urine Mucus Present A (None Prsent) 02/09/20 02/09/20 02/09/20 Range/Units 14:37 14:37 14:37 WBC 20.38 H (4.8-10.8) K/uL RBC 3.39 L (4.7-6.1) M/uL Hgb 9.6 L (14.0-18.0) g/dL Hct 28.6 L (42-52) % MCV 84.4 (80-100) fL MCH 28.3 (25-34) pg MCHC 33.6 (32-36) g/dL RDW Std Deviation 51.2 H (36.4-46.3) fL RDW Coeff of So 16.7 H (11.5-14.5) % Plt Count 327 (130-400) K/uL MPV 9.0 (7.4-10.4) fL Neutrophils % (Manual) 94.9 % Lymphocytes % (Manual) 1.7 % Monocytes % (Manual) 3.4 % Neutrophils # (Manual) 19.34 H (1.4-6.5) K/uL Total Absolute Neuts 19.34 H (1.4-6.5) K/uL Lymphocytes # (Manual) 0.35 L (1.2-3.4) K/uL Total Abs Lymphocytes 0.35 L (1.2-3.4) K/uL Monocytes # (Manual) 0.69 H (0.11-0.59) K/uL Acanthocytes (Spur) 2+ PT 12.9 H (9.0-12.0) Seconds INR 1.2 H (0.9-1.1) APTT 34.7 H (21.0-31.0) Seconds PTT Ratio 1.2 VBG pH (7.36-7.41) VBG pCO2 (38-50) mmHg VBG pO2 mmHg VBG HCO3 mmol/L VBG O2 Saturation % VBG Base Excess mEq/L Barometric Pressure mm/Hg Sodium 148 H (136-145) mmol/L Potassium 4.0 (3.5-5.1) mmol/L Chloride 114 H (98-107) mmol/L Carbon Dioxide 27 (21-32) mmol/L Anion Gap 7.0 (3-11) BUN 34 H (7-18) mg/dl Creatinine 1.50 H (0.6-1.4) mg/dl Est Cr Clr Drug Dosing 28.8 ml/min Est GFR ( Amer) 50.6 Est GFR (Non-Af Amer) 43.7 BUN/Creatinine Ratio 22.4 H (10-20) Glucose 80 (70-99) mg/dl POC Glucose (70-99) mg/dl Lactate (0.4-2.0) mmol/L Calcium 9.0 (8.5-10.1) mg/dl Phosphorus 3.5 (2.5-4.9) mg/dl Magnesium 2.2 (1.8-2.4) mg/dl Total Bilirubin 0.6 (0.2-1) mg/dl Direct Bilirubin 0.2 (0-0.2) mg/dl AST 18 (15-37) U/L ALT 15 (12-78) U/L Alkaline Phosphatase 97 (45-117) U/L Troponin I < 0.015 (0-0.045) ng/ml NT-Pro-B Natriuret Pep 2691 H (0-1800) pg/ml Total Protein 6.8 (6.4-8.2) gm/dl Albumin 2.2 L (3.4-5.0) gm/dl Globulin 4.6 H (2.5-4.0) gm/dl Albumin/Globulin Ratio 0.5 L (0.9-2) Procalcitonin (0-0.5) ng/ml TSH 2.800 (0.300-4.500) uIu/ml Urine Color Urine Appearance (Clear) Urine pH (4.5-7.5) Ur Specific [place] (1.000-1.030) Urine Protein (Negative) Urine Glucose (UA) (Negative) Urine Ketones (Negative) Urine Blood (Negative) Urine Nitrite (Negative) Urine Bilirubin (Negative) Urine Urobilinogen (Negative) Ur Leukocyte Esterase (Negative) Urine RBC (0-4) /hpf Urine WBC (0-5) /hpf Ur Epithelial Cells (0-5) /lpf Triple Phos Crystals (None Prsent) Urine Bacteria (Negative) Urine Mucus (None Prsent) 02/09/20 02/09/20 Range/Units 14:40 14:40 WBC (4.8-10.8) K/uL RBC (4.7-6.1) M/uL Hgb (14.0-18.0) g/dL Hct (42-52) % MCV (80-100) fL MCH (25-34) pg MCHC (32-36) g/dL RDW Std Deviation (36.4-46.3) fL RDW Coeff of So (11.5-14.5) % Plt Count (130-400) K/uL MPV (7.4-10.4) fL Neutrophils % (Manual) % Lymphocytes % (Manual) % Monocytes % (Manual) % Neutrophils # (Manual) (1.4-6.5) K/uL Total Absolute Neuts (1.4-6.5) K/uL Lymphocytes # (Manual) (1.2-3.4) K/uL Total Abs Lymphocytes (1.2-3.4) K/uL Monocytes # (Manual) (0.11-0.59) K/uL Acanthocytes (Spur) PT (9.0-12.0) Seconds INR (0.9-1.1) APTT (21.0-31.0) Seconds PTT Ratio VBG pH 7.40 (7.36-7.41) VBG pCO2 45 (38-50) mmHg VBG pO2 30 mmHg VBG HCO3 27 mmol/L VBG O2 Saturation < 60.0 % VBG Base Excess 1.9 mEq/L Barometric Pressure 740.3 mm/Hg Sodium (136-145) mmol/L Potassium (3.5-5.1) mmol/L Chloride (98-107) mmol/L Carbon Dioxide (21-32) mmol/L Anion Gap (3-11) BUN (7-18) mg/dl Creatinine (0.6-1.4) mg/dl Est Cr Clr Drug Dosing ml/min Est GFR ( Amer) Est GFR (Non-Af Amer) BUN/Creatinine Ratio (10-20) Glucose (70-99) mg/dl POC Glucose (70-99) mg/dl Lactate 0.9 (0.4-2.0) mmol/L Calcium (8.5-10.1) mg/dl Phosphorus (2.5-4.9) mg/dl Magnesium (1.8-2.4) mg/dl Total Bilirubin (0.2-1) mg/dl Direct Bilirubin (0-0.2) mg/dl AST (15-37) U/L ALT (12-78) U/L Alkaline Phosphatase (45-117) U/L Troponin I (0-0.045) ng/ml NT-Pro-B Natriuret Pep (0-1800) pg/ml Total Protein (6.4-8.2) gm/dl Albumin (3.4-5.0) gm/dl Globulin (2.5-4.0) gm/dl Albumin/Globulin Ratio (0.9-2) Procalcitonin (0-0.5) ng/ml TSH (0.300-4.500) uIu/ml Urine Color Urine Appearance (Clear) Urine pH (4.5-7.5) Ur Specific [place] (1.000-1.030) Urine Protein (Negative) Urine Glucose (UA) (Negative) Urine Ketones (Negative) Urine Blood (Negative) Urine Nitrite (Negative) Urine Bilirubin (Negative) Urine Urobilinogen (Negative) Ur Leukocyte Esterase (Negative) Urine RBC (0-4) /hpf Urine WBC (0-5) /hpf Ur Epithelial Cells (0-5) /lpf Triple Phos Crystals (None Prsent) Urine Bacteria (Negative) Urine Mucus (None Prsent) Administered Medications Benztropine Mesylate (Benztropine Mesylate 1 Mg Tab) 1 mg PO 0800,1700 [facility] Stop: 03/10/20 19:59 Last Admin: 02/09/20 20:52 Dose: Not Given Documented by: [id number] Sodium Chloride (1/2 Nss) 1,000 mls @ 100 mls/hr IV .Q10H [facility] Stop: 03/10/20 18:42 Last Admin: 02/09/20 19:15 Dose: 100 mls/hr Documented by: [id number] Piperacillin Sod/Tazobactam (Sod 3.375 gm/ Dextrose) 115 mls @ 28.75 mls/hr IV Q8H [facility]; Protocol Stop: 02/11/20 21:59 Last Admin: 02/09/20 22:40 Dose: 28.8 mls/hr Documented by: [id number] Memantine (Memantine Hcl 10 Mg Tab) 10 mg PO 0800,1700 [facility] Stop: 03/10/20 19:59 Last Admin: 02/09/20 20:52 Dose: Not Given Documented by: [id number] Mirtazapine (Mirtazapine Tab 15 Mg Tab) 30 mg PO HS@2000 [facility] Stop: 03/10/20 19:59 Last Admin: 02/09/20 20:52 Dose: Not Given Documented by: [id number] Discontinued Medications Sodium Chloride (Nss 1000ml) 1,000 mls @ 999 mls/hr IV .Q1H1M ONE Stop: 02/09/20 13:28 Last Infusion: 02/09/20 15:28 Dose: 0 mls/hr Documented by: [id number] Admin: 02/09/20 14:27 Dose: 999 mls/hr Documented by: [id number] Piperacillin Sod/Tazobactam Sod (Zosyn) 4.5 gm in 120 mls @ 240 mls/hr IV NOW ONE Stop: 02/09/20 16:00 Last Infusion: 02/09/20 17:26 Dose: 0 mls/hr Documented by: [id number] Admin: 02/09/20 16:42 Dose: 240 mls/hr Documented by: [id number] Vancomycin HCl 1,000 mg/ (Sodium Chloride) 520 mls @ 200 mls/hr IV NOW ONE Stop: 02/09/20 18:06 Last Admin: 02/09/20 16:23 Dose: 200 mls/hr Documented by: [id number] Sodium Chloride (Nss 1000ml) 1,000 mls @ 125 mls/hr IV .Q8H [facility] Stop: 03/10/20 15:44 Last Admin: 02/09/20 16:24 Dose: 125 mls/hr Documented by: [id number] Olanzapine (Olanzapine 10 Mg/2.1 Ml Sdv) 5 mg IM NOW STA Stop: 02/09/20 12:29 Last Admin: 02/09/20 13:04 Dose: 5 mg Documented by: [id number] Discharge Plan Visit Data Chief Complaint: Altered Mental Status ED Provider: Edgardo Rangel Discharge Problem: Sepsis, Metabolic encephalopathy, UTI (urinary tract infection), Pneumonia, CKD (chronic kidney disease), stage III Patient Disposition: Admitted As Inpatient Discharge Instructions Interventions: ED Discharge Assessment Last Done: 02/09/20 18:21 Discharge Problem: Sepsis Qualifiers: Sepsis type: sepsis due to unspecified organism Sepsis acute organ dysfunction status: with acute organ dysfunction Severe sepsis acute organ dysfunction type: encephalopathy Severe sepsis shock status: without septic shock Qualified Code(s): A41.9 - Sepsis, unspecified organism UTI (urinary tract infection) Qualifiers: Urinary tract infection type: acute cystitis Hematuria presence: with hematuria Qualified Code(s): N30.01 - Acute cystitis with hematuria Pneumonia Qualifiers: Pneumonia type: due to unspecified organism Laterality: left Lung location: lower lobe of lung Qualified Code(s): J18.9 - Pneumonia, unspecified organism CKD (chronic kidney disease), stage III Qualifiers: Chronic kidney disease stage 3 subtype: unspecified whether 3a or 3b Qualified Code(s): N18.30 - Chronic kidney disease, stage 3 unspecified
[2020-02-09 15:25] LABS: Albumin Globulin Ratio 0.5 (0.9-2); Alkaline Phosphatase 97 U/L (45-117); Bilirubin,Total 0.6 mg/dl (0.2-1); Globulin 4.6 gm/dl (2.5-4.0); NT Pro B Type Natriuretic Pept 2691 pg/ml (0-1800); Phosphorus 3.5 mg/dl (2.5-4.9); Total Protein 6.8 gm/dl (6.4-8.2); Troponin I < 0.015 ng/ml (0-0.045)
[2020-02-09] MEDS ORDERED: VANCOMYCIN CONSULT ACTIVE PRN ×2 (15:31→18:43)
[2020-02-09] MEDS ORDERED: VANCOMYCIN HCL 1,000 MG in SODIUM CHLORIDE 0.9% 500 ML IV ONE (15:31)
[2020-02-09] MEDS ORDERED: PIPERACILLIN/TAZOBACTAM 4.5 GM/120 ML BAG IV ONE (15:31)
[2020-02-09] MEDS ORDERED: PIPERACILL/TAZOBAC CONSULT ACTIVE PRN ×2 (15:31→18:43)
[2020-02-09] MEDS ORDERED: SODIUM CHLORIDE 0.9% 1000ML 1,000 ML IV SCH (15:45)
[2020-02-09 15:57] LABS: ALC (manual) 0.35 K/uL (1.2-3.4); ANC (manual) 19.34 K/uL (1.4-6.5); Acanthocytes 2+; Lymphocytes # (manual) 0.35 K/uL (1.2-3.4); Lymphocytes % (manual) 1.7 %; Monocytes # (manual) 0.69 K/uL (0.11-0.59); Monocytes % (manual) 3.4 %; Neutrophils # (manual) 19.34 K/uL (1.4-6.5); Neutrophils % (manual) 94.9 %
--- NOTE | 2020-02-09 17:03 | History & Physical Report ---
Date of Service February 09, 2020 Assessment & Plan (1) Sepsis: Likely multifactorial related to both UTi and pneumonia - Broad-spectrum antibiotics initiated in the ED with Zosyn and Vancomycin - will continue for now pending culture results - Pt not hypotensive or tachycardic at present but does appear clinically dehydrated with COLT and hypernatremia - will give 1/2 NSS at 100 ml/hr and recheck BMP later this evening (2) Pneumonia: Not currently hypoxic but apparently was earlier at [facility] - prn O2 ordered placed in case sats drop again. Suspect may have aspirated based on clinical history of dysphagia and sudden onset of respiratory symptoms. Antibiotics as above (3) UTI (urinary tract infection): Likely related to indwelling Guy for chronic urinary retention due to BPH - Await urine culture - Antibiotics as above (4) Acute renal failure: Suspect due to UTI and dehydration - Follow labs - IVF as above (5) Anemia: Appears to be at baseline of Hgb 9-10 - no gross active bleeding at present (6) Dysphagia: Related to prior CVA - pt is on a pureed diet with thin liquids, uses straws, crushed meds at baseline - NPO except meds for now until mental status improves (7) Urinary retention due to benign prostatic hyperplasia: - Continue Guy for now - may need urology consult although it appears pt has failed maximal medical therapy and declined invasive procedure for intervention. (8) Schizoaffective disorder: - Continue outpatient meds - Will use PRN Zyprexa in low-doses here for combativeness as this appears to have worked well in the ED (although listed on allergy list because "it does not work" (9) HTN (hypertension): Does not appear to be on meds at present but difficult to obtain accurate med list from facility. Will continue to monitor while admitted. (10) Dementia: Per RN at [facility], pt's mental has been gradually worsening over past several months although acutely worse over past 2-3 days. Unclear what his baseline mental status is. Will consult case management for discharge planning. Per information from facility, pt has a guardian Radha Noble at [phone]. Pt seen and reviewed with collaborating physician, Dr. Duke. Plan of care discussed and as outlined above. Little Rees PA-C History of Present Illness Chief Complaint: Agitation, altered mental status Primary Care Provider: [facility] This is a 79 y/o male with a history of prior CVA, vascular dementia, schizoaffective d/o, dysphagia s/p CVA, anemia, HTN, BPH w/ urinary retention and chronic Guy, pulmonary nodule, and prior episode of sepsis in 2018 and in 2019, who was brought to the ED today via EMS from [facility] due to acute worsening of his mental status with agitation, combativeness as well as respiratory difficulties. History from the patient is unobtainable so the chart and records from the SNF were extensively reviewed. Additionally, I was able to speak with Cathy, the RN pipelines supervisor at [facility], although history is still quite limited. Staff at the facility report a gradual decline in patient's mental status since he was discharged from [facility] in July. However, over the past 2-3 days, he has acutely worsened with increased confusion and agitation as well as refusing to eat or drink anything. This morning, he was apparently acutely worse so EMS was called. He was combative at the SNF, hitting and kicking at the EMS providers and had to be "wrestled" onto the stretcher. In the ED, he was initially so agitated that they were unable to evaluate him so he was given Zyprexa for sedation with improvement. Per nursing, he continues to remain confused and irritable, although they have been able to evaluate the patient. During the work-up he was found to have pneumonia and likely a UTI. Allergies Allergy/AdvReac Type Severity Reaction Status Date / Time olanzapine Allergy Mild "IT DOES Verified 02/09/20 12:53 NOT WORK" risperidone Allergy Unknown UNKNOWN Verified 02/09/20 12:53 lisinopril AdvReac Severe Verified 02/09/20 12:53 Influenza Virus Vaccines AdvReac PAIN AT Verified 02/09/20 12:53 INJECTION SITE Tricyclic Antidepressants Allergy Unknown Unknown Uncoded 02/09/20 12:53 Home Medications Home Medications Medication Instructions Recorded Confirmed Type Artificial Tears (PF) 1 drp OPB BID 11/22/18 02/09/20 History benztropine 1 mg PO BID 11/22/18 02/09/20 History docusate sodium 100 mg PO BID 11/22/18 02/09/20 History fluphenazine decanoate 25 mg IM MONTHLY 11/22/18 02/09/20 History memantine 10 mg PO BID 11/22/18 02/09/20 History mirtazapine 30 mg PO HS@2000 11/22/18 02/09/20 History acetaminophen [Tylenol] 650 mg PO Q4 PRN MDD 3G 03/15/19 02/09/20 History tamsulosin 0.4 mg PO QAM@0800 03/15/19 02/09/20 History finasteride 5 mg PO QAM@0800 05/07/19 02/09/20 History fluphenazine HCl 2.5 mg PO Q6H PRN 05/07/19 02/09/20 History perphenazine 0 mg PO UD 06/05/19 02/09/20 History Saccharomyces boulardii [Florastor] 250 mg PO BID 02/09/20 02/09/20 History bisacodyl [Dulcolax (bisacodyl)] 10 mg [place] DAILY PRN 02/09/20 02/09/20 History lactase [Lactaid] 3,000 unit PO TIDM 02/09/20 02/09/20 History melatonin 0 mg PO UD PRN 02/09/20 02/09/20 History multivitamin with minerals 1 tab PO DAILY 02/09/20 02/09/20 History Past Med/Surg History Medical History (Updated 02/10/20 @ 01:44 by Edgardo Rangel MD) Anemia Anxiety BPH loc w urin obs/LUTS CKD (chronic kidney disease), stage III Dementia Dysphagia following CVA H/O: CVA (cerebrovascular accident) Hemangioma of lip HTN (hypertension) Indwelling Guy catheter present Muscle weakness (generalized) Pulmonary nodule Schizoaffective disorder Sepsis due to Pseudomonas March 2019 Urinary retention Urinary retention due to benign prostatic hyperplasia Surgical History Hx of cataract surgery S/P tonsillectomy Family History Other Hypertension Social History Smoking Status: Unknown if ever smoked Years Smoked: 50; Second Hand Exposure: No; Hx Alcohol Use: No Hx Substance Use: No Preferred Language: Armenian Communication Ability: Unable Conservation Policy Analyst Required: No Beliefs That Will Affect Care: None marital status: Single Current Living Situation: Care Home Current Living Situation Comment: [facility] Other Information That Helps Us Care for You: No Feels Safe at Home: Yes Safety Concerns: Feels Safe At This Time Assistive Devices: None Review of Systems Review of Systems: Unobtainable due to cognitive status Physical Exam Constitutional: + cachectic, + altered mental status, + frail appearing and + disheveled Eyes: + anicteric sclerae ENMT: Mouth: + lip abnormality (right upper lip with hemangioma) and + dry oral mucous membranes Respiratory: + labored breathing (slightly - worse when pt becomes agitated) Auscultation: + rhonchi and + wheezes coarse BS throughout with scattered wheezes and intermittent rhonchi tachypneic at 20-24 bpm during exam Cardiovascular: Rate/Rhythm: regular rate and regular rhythm Vessels: radial pulses present Extremities: no pedal edema Gastrointestinal (Abdomen): Inspection/Auscultation: normal bowel sounds and + scaphoid Percussion/Palpation: abdomen soft Musculoskeletal: Head/Neck/Chest: normocephalic, head atraumatic and neck supple Extremities: no cyanosis Skin: + dry skin; no jaundice Neurologic: + confused Speech / Cognition: + abnormal speech (non-verbal - refused to answer questions, occasional moaning or grunts) Psychiatric: Apperance: + disheveled Mood: + irritable mood Results & Data Results & Data ([facility]) Vital Signs (Past 12 Hours) Vital Signs Temp Pulse Pulse Resp BP BP Pulse Ox 02/09/20 16:40 147/75 H 97 02/09/20 16:36 138/65 95 02/09/20 16:29 96 02/09/20 16:23 34.2 C L 02/09/20 15:17 71 18 138/65 95 02/09/20 15:00 105 H 21 95 02/09/20 14:30 77 25 H 95 02/09/20 14:00 79 28 H 92 02/09/20 13:30 78 18 95 02/09/20 13:22 85 27 H 137/77 90 02/09/20 13:00 82 24 94 02/09/20 12:30 78 21 99 02/09/20 12:20 76 21 99 02/09/20 12:15 81 28 H 116/69 97 02/09/20 12:11 79 30 H 116/69 98 02/09/20 11:55 87 L 02/09/20 11:16 84 30 H 140/82 87 L Laboratory Results Laboratory Results - last 24 hr 02/09/20 02/09/20 02/09/20 12:01 13:07 14:37 WBC RBC Hgb Hct MCV MCH MCHC RDW Std Deviation RDW Coeff of So Plt Count MPV Neutrophils % (Manual) Lymphocytes % (Manual) Monocytes % (Manual) Neutrophils # (Manual) Total Absolute Neuts Lymphocytes # (Manual) Total Abs Lymphocytes Monocytes # (Manual) Acanthocytes (Spur) PT INR APTT PTT Ratio VBG pH VBG pCO2 VBG pO2 VBG HCO3 VBG O2 Saturation VBG Base Excess Barometric Pressure Sodium Potassium Chloride Carbon Dioxide Anion Gap BUN Creatinine Est Cr Clr Drug Dosing Est GFR ( Amer) Est GFR (Non-Af Amer) BUN/Creatinine Ratio Glucose POC Glucose 101 H Lactate Calcium Phosphorus Magnesium Total Bilirubin Direct Bilirubin AST ALT Alkaline Phosphatase Troponin I NT-Pro-B Natriuret Pep Total Protein Albumin Globulin Albumin/Globulin Ratio Procalcitonin 0.12 TSH Urine Color Yellow Urine Appearance Turbid A Urine pH 8.5 H Ur Specific [place] 1.010 Urine Protein 1+ H Urine Glucose (UA) Negative Urine Ketones Negative Urine Blood 1+ H Urine Nitrite Negative Urine Bilirubin Negative Urine Urobilinogen Negative Ur Leukocyte Esterase 3+ H Urine RBC 5-10 H Urine WBC >30 H Ur Epithelial Cells 0-5 Triple Phos Crystals Present A Urine Bacteria 2+ H Urine Mucus Present A COVID-19 Eval Order COVID-19 PCR 02/09/20 02/09/20 02/09/20 14:37 14:37 14:37 WBC 20.38 H RBC 3.39 L Hgb 9.6 L Hct 28.6 L MCV 84.4 MCH 28.3 MCHC 33.6 RDW Std Deviation 51.2 H RDW Coeff of So 16.7 H Plt Count 327 MPV 9.0 Neutrophils % (Manual) 94.9 Lymphocytes % (Manual) 1.7 Monocytes % (Manual) 3.4 Neutrophils # (Manual) 19.34 H Total Absolute Neuts 19.34 H Lymphocytes # (Manual) 0.35 L Total Abs Lymphocytes 0.35 L Monocytes # (Manual) 0.69 H Acanthocytes (Spur) 2+ PT 12.9 H INR 1.2 H APTT 34.7 H PTT Ratio 1.2 VBG pH VBG pCO2 VBG pO2 VBG HCO3 VBG O2 Saturation VBG Base Excess Barometric Pressure Sodium 148 H Potassium 4.0 Chloride 114 H Carbon Dioxide 27 Anion Gap 7.0 BUN 34 H Creatinine 1.50 H Est Cr Clr Drug Dosing 28.8 Est GFR ( Amer) 50.6 Est GFR (Non-Af Amer) 43.7 BUN/Creatinine Ratio 22.4 H Glucose 80 POC Glucose Lactate Calcium 9.0 Phosphorus 3.5 Magnesium 2.2 Total Bilirubin 0.6 Direct Bilirubin 0.2 AST 18 ALT 15 Alkaline Phosphatase 97 Troponin I < 0.015 NT-Pro-B Natriuret Pep 2691 H Total Protein 6.8 Albumin 2.2 L Globulin 4.6 H Albumin/Globulin Ratio 0.5 L Procalcitonin TSH 2.800 Urine Color Urine Appearance Urine pH Ur Specific [place] Urine Protein Urine Glucose (UA) Urine Ketones Urine Blood Urine Nitrite Urine Bilirubin Urine Urobilinogen Ur Leukocyte Esterase Urine RBC Urine WBC Ur Epithelial Cells Triple Phos Crystals Urine Bacteria Urine Mucus COVID-19 Eval Order COVID-19 PCR 02/09/20 02/09/20 02/09/20 14:40 14:40 Unknown WBC RBC Hgb Hct MCV MCH MCHC RDW Std Deviation RDW Coeff of So Plt Count MPV Neutrophils % (Manual) Lymphocytes % (Manual) Monocytes % (Manual) Neutrophils # (Manual) Total Absolute Neuts Lymphocytes # (Manual) Total Abs Lymphocytes Monocytes # (Manual) Acanthocytes (Spur) PT INR APTT PTT Ratio VBG pH 7.40 VBG pCO2 45 VBG pO2 30 VBG HCO3 27 VBG O2 Saturation < 60.0 VBG Base Excess 1.9 Barometric Pressure 740.3 Sodium Potassium Chloride Carbon Dioxide Anion Gap BUN Creatinine Est Cr Clr Drug Dosing Est GFR ( Amer) Est GFR (Non-Af Amer) BUN/Creatinine Ratio Glucose POC Glucose Lactate 0.9 Calcium Phosphorus Magnesium Total Bilirubin Direct Bilirubin AST ALT Alkaline Phosphatase Troponin I NT-Pro-B Natriuret Pep Total Protein Albumin Globulin Albumin/Globulin Ratio Procalcitonin TSH Urine Color Urine Appearance Urine pH Ur Specific [place] Urine Protein Urine Glucose (UA) Urine Ketones Urine Blood Urine Nitrite Urine Bilirubin Urine Urobilinogen Ur Leukocyte Esterase Urine RBC Urine WBC Ur Epithelial Cells Triple Phos Crystals Urine Bacteria Urine Mucus COVID-19 Eval Order Covid19 Done at [facility] COVID-19 PCR 02/09/20 Unknown WBC RBC Hgb Hct MCV MCH MCHC RDW Std Deviation RDW Coeff of So Plt Count MPV Neutrophils % (Manual) Lymphocytes % (Manual) Monocytes % (Manual) Neutrophils # (Manual) Total Absolute Neuts Lymphocytes # (Manual) Total Abs Lymphocytes Monocytes # (Manual) Acanthocytes (Spur) PT INR APTT PTT Ratio VBG pH VBG pCO2 VBG pO2 VBG HCO3 VBG O2 Saturation VBG Base Excess Barometric Pressure Sodium Potassium Chloride Carbon Dioxide Anion Gap BUN Creatinine Est Cr Clr Drug Dosing Est GFR ( Amer) Est GFR (Non-Af Amer) BUN/Creatinine Ratio Glucose POC Glucose Lactate Calcium Phosphorus Magnesium Total Bilirubin Direct Bilirubin AST ALT Alkaline Phosphatase Troponin I NT-Pro-B Natriuret Pep Total Protein Albumin Globulin Albumin/Globulin Ratio Procalcitonin TSH Urine Color Urine Appearance Urine pH Ur Specific [place] Urine Protein Urine Glucose (UA) Urine Ketones Urine Blood Urine Nitrite Urine Bilirubin Urine Urobilinogen Ur Leukocyte Esterase Urine RBC Urine WBC Ur Epithelial Cells Triple Phos Crystals Urine Bacteria Urine Mucus COVID-19 Eval Order COVID-19 PCR NEGATIVE Diagnostic Findings Chest X-ray 02/09/20 - IMPRESSION: 1. Cardiomegaly and emphysema with evidence of congestive failure. 2. Dense airspace consolidation is seen at the left lung base. Correlate clinically for evidence of pneumonia/aspiration pneumonitis. Radiographic follow-up to resolution is recommended. 3. Patchy opacities are seen throughout both lungs. This could represent an infectious/inflammatory pneumonitis and/or developing pulmonary edema. Head CT 02/09/20 - IMPRESSION: 1. Motion compromised study. 2. No acute intracranial findings Medications Administered Vancomycin HCl 1,000 mg/ (Sodium Chloride) 520 mls @ 200 mls/hr IV NOW ONE Stop: 02/09/20 18:06 Last Admin: 02/09/20 16:23 Dose: 200 mls/hr Documented by: [id number] Sodium Chloride (Nss 1000ml) 1,000 mls @ 125 mls/hr IV .Q8H SHERIE Stop: 03/10/20 15:44 Last Admin: 02/09/20 16:24 Dose: 125 mls/hr Documented by: [id number] Discontinued Medications Sodium Chloride (Nss 1000ml) 1,000 mls @ 999 mls/hr IV .Q1H1M ONE Stop: 02/09/20 13:28 Last Infusion: 02/09/20 15:28 Dose: 0 mls/hr Documented by: [id number] Admin: 02/09/20 14:27 Dose: 999 mls/hr Documented by: [id number] Piperacillin Sod/Tazobactam Sod (Zosyn) 4.5 gm in 120 mls @ 240 mls/hr IV NOW ONE Stop: 02/09/20 16:00 Last Admin: 02/09/20 16:42 Dose: 240 mls/hr Documented by: [id number] Olanzapine (Olanzapine 10 Mg/2.1 Ml Sdv) 5 mg IM NOW STA Stop: 02/09/20 12:29 Last Admin: 02/09/20 13:04 Dose: 5 mg Documented by: [id number] Supervising Physician Co-Signing Physician Notes Pt was seen and examined. Agreed with Liza CHRISTIANSON exam, assessment and plan. 79 y/o male with a history of prior CVA, vascular dementia, schizoaffective d/o, dysphagia s/p CVA, anemia, HTN, BPH w/ urinary retention and chronic Guy, pulmonary nodule was brought from [facility] due to worsening altered mental status and agitation. History obtained from the jail and ED charts. As per staff from [facility], pt mental status has been declined since last admission in July, but in the last few days pt has been very confused, agitation and combative. He has not been eating or drink lately. In the ER pt was very agitated and combative and was given Zyprexa IM. Currently pt is sleeping. CT head done in the ER showed no acute intracranial findings. UA was positive for leukocytes and bacteria, WBC 20.3, ProBNP mildly elevated at 2691. Procalcitonin and COVID 19 are negative. Received IV Zosyn ad Vanco in the ER. blood cx and urine cx collected in the ER. Will continue IV abx for now. Will follow up cultures. Continue monitor CBC. Will continue monitor closely. MD Leilani (1) UTI (urinary tract infection) Encounter type: initial encounter Indwelling urinary catheter type: indwelling urethral catheter Urinary tract infection type: catheter-associated UTI Qualified Code(s): T83.511A - Infection and inflammatory reaction due to indwelling urethral catheter, initial encounter; N39.0 - Urinary tract infec tion, site not specified (2) Acute renal failure Acute renal failure type: unspecified Qualified Code(s): N17.9 - Acute kidney failure, unspecified (3) Anemia Anemia type: unspecified type Qualified Code(s): D64.9 - Anemia, unspecified (4) Dysphagia Dysphagia type: unspecified Qualified Code(s): R13.10 - Dysphagia, unspecified (5) Dementia Dementia behavioral disturbance: with behavioral disturbance Dementia type: vascular dementia Qualified Code(s): F01.51 - Vascular dementia with behavioral disturbance (6) Schizoaffective disorder Schizoaffective disorder type: unspecified Qualified Code(s): F25.9 - Schizoaffective disorder, unspecified (7) Sepsis Sepsis acute organ dysfunction status: unspecified Sepsis type: sepsis due to unspecified organism Qualified Code(s): A41.9 - Sepsis, unspecified organism (8) HTN (hypertension) Hypertension type: essential hypertension Qualified Code(s): I10 - Essential (primary) hypertension (9) Pneumonia Laterality: left Lung location: lower lobe of lung Pneumonia type: due to unspecified organism Qualified Code(s): J18.9 - Pneumonia, unspecified organism
[2020-02-09] MEDS ORDERED: OLANZapine 10 MG/2.1 ML SDV IM PRN (18:43)
[2020-02-09] MEDS ORDERED: ACETAMINOPHEN 325 MG TAB PO PRN (18:43)
[2020-02-09] MEDS ORDERED: PNEUMOCOCCAL ADMINISTRATION CHARGE ONE (18:55)
[2020-02-09] MEDS ORDERED: PNEUMOCOCCAL POLYSACCHARIDES 25 MCG/0.5 ML VIAL/SYR IM ONE (18:55)
[2020-02-09] MEDS: SODIUM CHLORIDE 0.45 % 1,000 ML IV SCH (19:15)
[2020-02-09] MEDS: MEMANTINE HCL 10 MG TAB PO SCH (20:52)
[2020-02-09] MEDS: BENZTROPINE MESYLATE 1 MG TAB PO SCH (20:52)
[2020-02-09] MEDS: MIRTAZAPINE TAB 15 MG TAB PO SCH (20:52)
[2020-02-09 22:26] LABS: BUN Creatinine Ratio 23.5 (10-20); Calcium 8.6 mg/dl (8.5-10.1); Creatinine Clr Calc Pharmacy 31.5 ml/min; Est GFR (African American) 53.6; Est GFR (Non-African American) 46.3; Potassium 4.3 mmol/L (3.5-5.1)
[2020-02-09] MEDS: PIPERACILLIN/TAZOBACTAM 3.375 GM in DEXTROSE 5% 100 ML IV SCH (22:40)
[2020-02-10] MEDS: PIPERACILLIN/TAZOBACTAM 3.375 GM in DEXTROSE 5% 100 ML IV SCH ×3 (05:26→20:37)
[2020-02-10] MEDS: SODIUM CHLORIDE 0.45 % 1,000 ML IV SCH (05:26)
[2020-02-10 06:44] LABS: Hematocrit (blood only) 28.8 % (42-52); Hemoglobin 9.7 g/dL (14.0-18.0); Mean Corpuscular Hgb Conc 33.7 g/dL (32-36); Platelet Count 260 K/uL (130-400); RDW Coefficient of Variation 16.9 % (11.5-14.5); RDW Standard Deviation 53.1 fL (36.4-46.3); Red Blood Count 3.35 M/uL (4.7-6.1); White Blood Count 19.65 K/uL (4.8-10.8)
[2020-02-10 07:08] LABS: ALC (manual) 1.02 K/uL (1.2-3.4); ANC (manual) 17.59 K/uL (1.4-6.5); Acanthocytes 1+; Basophils # (manual) 0.18 K/uL (0-0.2); Basophils % (manual) 0.9 %; Eosinophils # (manual) 0.18 K/uL (0-0.5); Eosinophils % (manual) 0.9 %; Lymphocytes # (manual) 1.02 K/uL (1.2-3.4); Lymphocytes % (manual) 5.2 %; Monocytes # (manual) 0.51 K/uL (0.11-0.59); Monocytes % (manual) 2.6 %; Myelocytes # (manual) 0.18 K/uL (0-0); Myelocytes % (manual) 0.9 %; Neutrophils # (manual) 17.59 K/uL (1.4-6.5); Neutrophils % (manual) 89.5 %
[2020-02-10 07:17] LABS: BUN Creatinine Ratio 21.5 (10-20); Calcium 8.6 mg/dl (8.5-10.1); Creatinine Clr Calc Pharmacy 28.7 ml/min; Est GFR (African American) 47.9; Est GFR (Non-African American) 41.3; Potassium 4.8 mmol/L (3.5-5.1)
[2020-02-10] MEDS: TAMSULOSIN HCL 0.4 MG CAP PO SCH (09:04)
[2020-02-10] MEDS: BENZTROPINE MESYLATE 1 MG TAB PO SCH ×2 (09:04→17:08)
[2020-02-10] MEDS: FINASTERIDE 5 MG TAB PO SCH (09:05)
[2020-02-10] MEDS: MEMANTINE HCL 10 MG TAB PO SCH ×2 (09:05→17:08)
[2020-02-10] MEDS: DEXTROSE 5% 1,000 ML IV SCH ×2 (10:05→20:35)
[2020-02-10 15:49] LABS: BUN Creatinine Ratio 22.3 (10-20); Calcium 8.5 mg/dl (8.5-10.1); Creatinine Clr Calc Pharmacy 30.9 ml/min; Est GFR (African American) 52.3; Est GFR (Non-African American) 45.1; Potassium 3.5 mmol/L (3.5-5.1)
[2020-02-10] MEDS ORDERED: VANCOMYCIN HCL 750 MG in SODIUM CHLORIDE 0.9% 250 ML IV SCH (16:00)
--- NOTE | 2020-02-10 18:25 | Hospitalist Progress Note ---
Date of Service February 10, 2020 Assessment & Plan (1) Sepsis: Likely related to pneumonia. Possible bacteremia. Change Guy and recollect urine. Cont broad spectrum abx now pending improvement clinically and further speciation of culture results. Pt remains hypothermic without a tracey h ugger, which has been requested continuously. (2) Pneumonia: Not currently hypoxic but apparently reported at [facility] - Possible aspiration pneumonia and has a h/o MRSA in the past, coming from a facility. Cont broad spectrum abx for now. Pulmonary toilet as able--currently the patient is altered and combative. (3) UTI (urinary tract infection): uncertain if infection present based on culture results. Would change out Guy bag and catheter and recollect for new culture. Cont abx as above. (4) Acute renal failure: Likely related to sepsis and severe dehydration. Cont with rehydration efforts and repeat BMP. Avoid NSAIDs, contrast and other nephrotoxic agents and renally dose meds as appropriate. (5) Anemia: around baseline, no active bleeding noted and no need for transfusion at this time. 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 Speech unable to evaluate him today 2/2 poor mental status and agitation/combativeness. (7) Severe protein-calorie malnutrition: started thiamine. Humane Officer consult. Speech eval once patient is more alert and cooperative with assessment. He has wasting on exam indicative of a chronic weight loss and malnutrition situation. He has lost a documented 40 lbs since July 2019. Will discuss this with guardian and continue to revisit goals of care. (8) Urinary retention due to benign prostatic hyperplasia: - Continue Guy for now - may need urology consult although it appears pt has failed maximal medical therapy and declined invasive procedure for intervention. (9) Schizoaffective disorder: - Continue outpatient meds. Zyprexa PRN combativeness. (10) Dementia: Per RN at [facility], pt's mental has been gradually worsening over past several months. Dementia is likely contributing to hypernatremia and combativeness with delirium in the hospital. We are also holding benztropine and memantine while patient is unsafe to swallow. Cont to reorient as able. Keep good day/night cycles. Turn off the TV if patient not watching. (11) DVT prophylaxis: heparin Full Code Dispo-cont PCU for now. Fanny Leger DO [facility] Hospitalist Admission and Anticipated Discharge Date Admission Date: February 09, 2020 Subjective Pt is combative and delirious Unable to obtain ROS Review of Systems Review of Systems: Unobtainable due to mental health condition Physical Exam Physical Exam: CONSTITUTIONAL: thin, emaciated, vitals as above, generally sleepy but gets aggressive and combative if touched or questioned. EYES: normal conjunctivae, no scleral icterus ENT: external ear and nose normal, large growth on lip that is purplish in color and fleshy, mucous membranes are dry appearing. RESPIRATORY: clear to auscultation bilaterally, no crackles, rales or wheezes, normal respiratory effort --limited exam as patient is combative. CARDIOVASCULAR: regular rate and rhythm, S1 and 2 heard without murmurs, gallops or rubs, no JVD, no peripheral edema GASTROINTESTINAL: soft, nontender, nondistended MUSCULOSKELETAL: strength 5/5 throughout, head is normocephalic and atraumatic, patient is combative and aggressively trying to hit myself and the nurse. Didn't see him move his legs much. SKIN: warm and dry NEUROLOGIC: delirious, sleepy, combative and aggressive with anyone interacting with him. Results & Data Results & Data ([facility]) Vital Signs (Past 12 Hours) Vital Signs Temp Pulse Pulse Resp BP BP Pulse Ox 02/10/20 16:37 35.0 C L 66 16 102/43 L 98 02/10/20 16:00 67 02/10/20 12:30 36.3 C L 75 21 148/82 H 91 02/10/20 12:29 02/10/20 09:04 34.0 C L 69 19 106/66 100 02/10/20 08:00 66 Pulse Ox 02/10/20 16:37 02/10/20 16:00 02/10/20 12:30 02/10/20 12:29 91 02/10/20 09:04 02/10/20 08:00 Laboratory Results Short CBC 02/10/20 Range/Units 06:35 WBC 19.65 H (4.8-10.8) K/uL Hgb 9.7 L (14.0-18.0) g/dL Hct 28.8 L (42-52) % Plt Count 260 (130-400) K/uL BMP 02/09/20 02/10/20 02/10/20 21:46 06:35 15:07 Sodium 150 H 150 H 147 H Potassium 4.3 4.8 3.5 D Chloride 119 H 119 H 116 H Carbon Dioxide 27 29 26 BUN 34 H 34 H 33 H Creatinine 1.43 H 1.57 H 1.46 H Glucose 72 71 92 Calcium 8.6 8.6 8.5 Medications Administered Current Inpatient Medications Acetaminophen (Acetaminophen 325 Mg Tab) 650 mg PO Q4H PRN PRN Reason: Pain or Fever Stop: 03/10/20 18:42 Benztropine Mesylate (Benztropine Mesylate 1 Mg Tab) 1 mg PO 0800,1700 [facility] Stop: 03/10/20 19:59 Last Admin: 02/10/20 17:08 Dose: Not Given Documented by: Finasteride (Finasteride 5 Mg Tab) 5 mg PO QAM@0800 [facility] Stop: 03/11/20 07:59 Last Admin: 02/10/20 09:05 Dose: Not Given Documented by: Piperacillin Sod/Tazobactam (Sod 3.375 gm/ Dextrose) 115 mls @ 28.75 mls/hr IV Q8H [facility]; Protocol Stop: 02/11/20 21:59 Last Infusion: 02/10/20 18:17 Dose: Infused Documented by: Vancomycin HCl 750 mg/ Sodium (Chloride) 265 mls @ 200 mls/hr IV Q24H [facility] Stop: 02/12/20 15:59 Last Admin: 02/10/20 17:08 Dose: 200 mls/hr Documented by: Dextrose (D5w) 1,000 mls @ 100 mls/hr IV .Q10H [facility] Stop: 03/11/20 09:14 Last Admin: 02/10/20 10:05 Dose: 100 mls/hr Documented by: Memantine (Memantine Hcl 10 Mg Tab) 10 mg PO 0800,1700 [facility] Stop: 03/10/20 19:59 Last Admin: 02/10/20 17:08 Dose: Not Given Documented by: Mirtazapine (Mirtazapine Tab 15 Mg Tab) 30 mg PO HS@2000 [facility] Stop: 03/10/20 19:59 Last Admin: 02/09/20 20:52 Dose: Not Given Documented by: Miscellaneous Information (Piperacill/Tazobac Consult Active) 1 ea N/A UD PRN PRN Reason: Consult Stop: 03/10/20 18:42 Miscellaneous Information (Vancomycin Consult Active) 1 ea N/A UD PRN PRN Reason: Consult Stop: 03/10/20 18:42 Olanzapine (Olanzapine 10 Mg/2.1 Ml Sdv) 2.5 mg IM BID PRN PRN Reason: Agitation Stop: 03/10/20 18:42 Tamsulosin HCl (Tamsulosin Hcl 0.4 Mg Cap) 0.4 mg PO QAM@0800 [facility] Stop: 03/11/20 07:59 Last Admin: 02/10/20 09:04 Dose: Not Given Documented by: (1) Sepsis Sepsis type: sepsis due to unspecified organism Sepsis acute organ dysfunction status: with acute organ dysfunction Severe sepsis acute organ dysfunction type: encephalopathy Severe sepsis shock status: without septic shock Qualified Code(s): A41.9 - Sepsis, unspecified organism; R65.20 - Severe sepsis without septic shock; G93.40 - Encephalopathy, unspecified (2) Pneumonia Pneumonia type: due to unspecified organism Laterality: left Lung location: lower lobe of lung Qualified Code(s): J18.9 - Pneumonia, unspecified organism (3) UTI (urinary tract infection) Urinary tract infection type: acute cystitis Hematuria presence: with hematuria Qualified Code(s): N30.01 - Acute cystitis with hematuria (4) Acute renal failure Acute renal failure type: unspecified Qualified Code(s): N17.9 - Acute kidney failure, unspecified (5) Anemia Anemia type: unspecified type Qualified Code(s): D64.9 - Anemia, unspecified (6) Dysphagia Dysphagia type: unspecified Qualified Code(s): R13.10 - Dysphagia, unspecif ied (7) Schizoaffective disorder Schizoaffective disorder type: unspecified Qualified Code(s): F25.9 - Schizoaffective disorder, unspecified (8) Dementia Dementia type: vascular dementia Dementia behavioral disturbance: with behavioral disturbance Qualified Code(s): F01.51 - Vascular dementia with behavioral disturbance
[2020-02-10] MEDS: THIAMINE HCL 100 MG in SYRINGE 9 ML IV SCH (20:35)
[2020-02-10] MEDS: MIRTAZAPINE TAB 15 MG TAB PO SCH (20:35)
[2020-02-10] MEDS: HEPARIN SOD 5,000 UNIT/0.5 ML VIAL SQ SCH (20:35)
[2020-02-11 02:01] LABS: Influenza A virus by PCR Negative (Negative); Influenza B virus by PCR Negative (Negative)
[2020-02-11] MEDS: PIPERACILLIN/TAZOBACTAM 3.375 GM in DEXTROSE 5% 100 ML IV SCH (06:07)
[2020-02-11 08:26] LABS: Basophils # (auto) 0.03 K/uL (0-0.2); Basophils % (auto) 0.2 %; Eosinophils # (auto) 0.01 K/uL (0-0.5); Eosinophils % (auto) 0.1 %; Hematocrit (blood only) 26.1 % (42-52); Hemoglobin 8.5 g/dL (14.0-18.0); Immature Granulocytes # (auto) 0.34 K/uL (0.00-0.02); Immature Granulocytes % (auto) 2.2 %; Lymphocytes # (auto) 1.16 K/uL (1.2-3.4); Lymphocytes % (auto) 7.6 %; Mean Corpuscular Hemoglobin 28.1 pg (25-34); Mean Corpuscular Hgb Conc 32.6 g/dL (32-36); Mean Corpuscular Volume 86.4 fL (80-100); Mean Platelet Volume 9.4 fL (7.4-10.4); Monocytes # (auto) 1.26 K/uL (0.11-0.59); Monocytes % (auto) 8.3 %; Neutrophils # (auto) 12.47 K/uL (1.4-6.5); Neutrophils % (auto) 81.6 %; Platelet Count 255 K/uL (130-400); RDW Coefficient of Variation 16.8 % (11.5-14.5); RDW Standard Deviation 52.7 fL (36.4-46.3); Red Blood Count 3.02 M/uL (4.7-6.1); White Blood Count 15.27 K/uL (4.8-10.8)
[2020-02-11 08:50] LABS: BUN Creatinine Ratio 19.5 (10-20); Calcium 8.5 mg/dl (8.5-10.1); Creatinine Clr Calc Pharmacy 28.2 ml/min; Est GFR (African American) 48.2; Est GFR (Non-African American) 41.6; Magnesium 1.9 mg/dl (1.8-2.4); Potassium 3.6 mmol/L (3.5-5.1)
[2020-02-11] MEDS: BENZTROPINE MESYLATE 1 MG TAB PO SCH ×2 (08:57→18:23)
[2020-02-11] MEDS: MEMANTINE HCL 10 MG TAB PO SCH ×2 (08:57→18:23)
[2020-02-11] MEDS: TAMSULOSIN HCL 0.4 MG CAP PO SCH (08:57)
[2020-02-11] MEDS: FINASTERIDE 5 MG TAB PO SCH (08:57)
[2020-02-11 08:59] LABS: Phosphorus 2.1 mg/dl (2.5-4.9)
[2020-02-11] MEDS ORDERED: POTASSIUM PHOS 3 MMOL/1 ML INFUSION IV SCH (09:45)
[2020-02-11] MEDS: DEXTROSE 5% 1,000 ML IV SCH ×2 (10:00→23:38)
[2020-02-11] MEDS ORDERED: POTASSIUM PHOSPHATE 15 MMOL in SODIUM CHLORIDE 0.9% 250 ML IV ONE (10:00)
[2020-02-11] MEDS ORDERED: AZITHROMYCIN 500 MG in DEXTROSE 5% 250 ML IV ONE (10:30)
[2020-02-11] MEDS: HEPARIN SOD 5,000 UNIT/0.5 ML VIAL SQ SCH ×2 (10:58→21:55)
[2020-02-11] MEDS: cefTRIAXone SODIUM 1,000 MG in DEXTROSE 5% 50 ML IV SCH (11:01)
[2020-02-11] MEDS: THIAMINE HCL 100 MG in SYRINGE 9 ML IV SCH (12:11)
--- NOTE | 2020-02-11 12:50 | Hospitalist Progress Note ---
Date of Service February 11, 2020 Assessment & Plan (1) Sepsis: Likely related to pneumonia. Possible bacteremia. Currently compensated. Abx changed to Rocephin and doxycycline in light of persistent renal insufficiency despite sepsis resuscitation and rehydration efforts. It is known that Vanc/Zosyn combination may cause this. Additionally, although the patient has a h/o MRSA in the urine, we are unable to get a sputum sample and prove this is not MRSA pneumonia. But we can watch him clinically in the hospital for decompensation and he will be covered somewhat on the doxycycline. Do not feel he needs antipseudomonal coverage at this point. He is less hypothermic today and labs reflect improvement. Blood cultures appear to be growing a contaminant, and patient appears clinically improved although still combative with staff somewhat. He is oxygenating well today. Cont to monitor on this therapy. (2) Pneumonia: Not currently hypoxic but apparently reported at [facility] - Possible aspiration pneumonia but this isn't certain. Cont with Rocpehin and doxycycline for now and monitor clinical progress. Pulmonary toilet as able--currently the patient is altered and combative. (3) UTI (urinary tract infection): uncertain if infection present based on culture results. Would change out Gyu bag and catheter and recollect for new culture. Cont abx as above. Repeat culture is still pending. (4) Acute renal failure: Likely related to sepsis and severe dehydration. Cont IVF and repeat BMP in am. Changed abx from Vanc/Zosyn to Rocephin/Zosyn to avoid known nephrotoxic effect. Avoid NSAIDs, contrast and other nephrotoxic agents and renally dose meds as appropriate. (5) Anemia: around baseline, no active bleeding noted and no need for transfusion at this time. (6) Dysphagia: Related to prior CVA - pt is on a pureed diet with thin liquids, uses st raws, crushed meds at baseline - NPO except meds for now until mental status improves. Speech still unable to evaluate him today 2/2 poor mental status and agitation/combativeness. (7) Severe protein-calorie malnutrition: started thiamine. Hardwood Finisher consult. Speech eval once patient is more alert and cooperative with assessment. He has wasting on exam indicative of a chronic weight loss and malnutrition situation. He has lost a documented 40 lbs since July 2019. Will discuss this with guardian and continue to revisit goals of care. Palliative consulted. (8) Urinary retention due to benign prostatic hyperplasia: - Continue Guy for now - may need urology consult although it appears pt has failed maximal medical therapy and declined invasive procedure for intervention. (9) Schizoaffective disorder: - Continue outpatient meds. Zyprexa PRN combativeness. (10) Dementia: Per RN at [facility], pt's mental has been gradually worsening over past several months. Dementia is likely contributing to hypernatremia and combativeness with delirium in the hospital. We are also holding benztropine and memantine while patient is unsafe to swallow. Cont to reorient as able. Keep good day/night cycles. Turn off the TV if patient not watching. (11) DVT prophylaxis: heparin Full Code Dispo-cont PCU for now. Predict a prolonged hospitalization for this individual based on the current obstacles to good health that are currently in his way. [facility] and [facility]ticipated Discharge Date Admission Date: February 09, 2020 Subjective The patient is somnolent and sleeping I am unable to wake him up fully Although he doesn't open his eyes, he is fighting me off from him and declining physical exam Review of Systems Review of Systems: Unobtainable due to cognitive status Physical Exam Physical Exam: CONSTITUTIONAL: thin, emaciated, vitals as above, generally sleepy but gets aggressive and combative if touched or questioned. EYES: normal conjunctivae, no scleral icterus ENT: external ear and nose normal, large growth on lip that is purplish in color and fleshy, mucous membranes are dry appearing. RESPIRATORY: clear to auscultation bilaterally, no crackles, rales or wheezes, normal respiratory effort --limited exam as patient is combative. CARDIOVASCULAR: regular rate and rhythm, S1 and 2 heard without murmurs, gallops or rubs, no JVD, no peripheral edema GASTROINTESTINAL: soft, nontender, nondistended MUSCULOSKELETAL: strength 5/5 throughout in arms bilaterally, I didn't see him move him legs today, head is normocephalic and atraumatic SKIN: warm and dry NEUROLOGIC: delirious, sleepy, combative, unable to follow instructions or cooperate with exam. Results & Data Results & Data ([facility]) Vital Signs (Past 12 Hours) Vital Signs Temp Pulse Pulse Resp BP Pulse Ox 02/11/20 11:39 36.8 C 88 22 122/63 90 02/11/20 08:00 75 02/11/20 07:13 36.7 C 77 24 100/55 L 91 02/11/20 03:56 36.7 C 86 18 129/63 90 02/11/20 01:09 77 Laboratory Results Short CBC 02/11/20 Range/Units 07:39 WBC 15.27 H (4.8-10.8) K/uL Hgb 8.5 L (14.0-18.0) g/dL Hct 26.1 L (42-52) % Plt Count 255 (130-400) K/uL BMP 02/10/20 02/11/20 15:07 07:39 Sodium 147 H 146 H Potassium 3.5 D 3.6 Chloride 116 H 115 H Carbon Dioxide 26 26 BUN 33 H 30 H Creatinine 1.46 H 1.56 H Glucose 92 77 Calcium 8.5 8.5 Medications Administered Current Inpatient Medications Acetaminophen (Acetaminophen 325 Mg Tab) 650 mg PO Q4H PRN PRN Reason: Pain or Fever Stop: 03/10/20 18:42 Benztropine Mesylate (Benztropine Mesylate 1 Mg Tab) 1 mg PO 0800,1700 [facility] Stop: 03/10/20 19:59 Last Admin: 02/11/20 08:57 Dose: Not Given Documented by: Finasteride (Finasteride 5 Mg Tab) 5 mg PO QAM@0800 [facility] Stop: 03/11/20 07:59 Last Admin: 02/11/20 08:57 Dose: Not Given Documented by: Heparin Sodium (Porcine) (Heparin Sod 5,000 Unit/0.5 Ml Vial) 5,000 units SQ Q12 [facility] Stop: 03/11/20 20:59 Last Admin: 02/11/20 10:58 Dose: Not Given Documented by: Dextrose (D5w) 1,000 mls @ 75 mls/hr IV .[id number] [facility] Stop: 03/11/20 09:14 Last Admin: 02/11/20 10:00 Dose: 75 mls/hr Documented by: Thiamine HCl 100 mg/ Syringe 10 mls @ 2 mls/min IV QAM [facility] Stop: 03/11/20 18:59 Last Admin: 02/11/20 12:11 Dose: 2 mls/min Documented by: Ceftriaxone Sodium 1,000 mg/ (Dextrose) 50 mls @ 100 mls/hr IV Q24H [facility]; Protocol Stop: 02/18/20 09:59 Last Infusion: 02/11/20 11:37 Dose: Infused Documented by: Azithromycin 250 mg/ Dextrose 252.5 mls @ 125 mls/hr IV Q24H [facility] Stop: 02/16/20 10:59 Memantine (Memantine Hcl 10 Mg Tab) 10 mg PO 0800,1700 [facility] Stop: 03/10/20 19:59 Last Admin: 02/11/20 08:57 Dose: Not Given Documented by: Mirtazapine (Mirtazapine Tab 15 Mg Tab) 30 mg PO HS@2000 [facility] Stop: 03/10/20 19:59 Last Admin: 02/10/20 20:35 Dose: Not Given Documented by: Olanzapine (Olanzapine 10 Mg/2.1 Ml Sdv) 2.5 mg IM BID PRN PRN Reason: Agitation Stop: 03/10/20 18:42 Tamsulosin HCl (Tamsulosin Hcl 0.4 Mg Cap) 0.4 mg PO QAM@0800 [facility] Stop: 03/11/20 07:59 Last Admin: 02/11/20 08:57 Dose: Not Given Documented by: (1) UTI (urinary tract infection) Hematuria presence: with hematuria Urinary tract infection type: acute cystitis Qualified Code(s): N30.01 - Acute cystitis with hematuria (2) Acute renal failure Acute renal failure type: unspecified Qualified Code(s): N17.9 - Acute kidney failure, unspecified (3) Anemia Anemia type: unspecified type Qualified Code(s): D64.9 - Anemia, unspecified (4) Dysphagia Dysphagia type: unspecified Qualified Code(s): R13.10 - Dysphagia, unspecified (5) Dementia Dementia behavioral disturbance: with behavioral disturbance Dementia type: vascular dementia Qualified Code(s): F01.51 - Vascular dementia with behavioral disturbance (6) Schizoaffective disorder Schizoaffective disorder type: unspecified Qualified Code(s): F25.9 - Sc hizoaffective disorder, unspecified (7) Sepsis Sepsis acute organ dysfunction status: with acute organ dysfunction Sepsis type: sepsis due to unspecified organism Severe sepsis acute organ dysfunction type: encephalopathy Severe sepsis shock status: without septic shock Qualified Code(s): A41.9 - Sepsis, unspecified organism; R65.20 - Severe sepsis without septic shock; G93.40 - Encephalopathy, unspecified (8) Pneumonia Laterality: left Lung location: lower lobe of lung Pneumonia type: due to unspecified organism Qualified Code(s): J18.9 - Pneumonia, unspecified organism
[2020-02-11] MEDS: MIRTAZAPINE TAB 15 MG TAB PO SCH (21:00)
[2020-02-12] MEDS: MEMANTINE HCL 10 MG TAB PO SCH ×2 (08:20→15:18)
[2020-02-12] MEDS: BENZTROPINE MESYLATE 1 MG TAB PO SCH ×2 (08:20→15:18)
[2020-02-12] MEDS: TAMSULOSIN HCL 0.4 MG CAP PO SCH (08:20)
[2020-02-12] MEDS: FINASTERIDE 5 MG TAB PO SCH (08:20)
[2020-02-12] MEDS: HEPARIN SOD 5,000 UNIT/0.5 ML VIAL SQ SCH ×2 (08:21→19:58)
[2020-02-12 08:50] LABS: Hematocrit (blood only) 28.3 % (42-52); Hemoglobin 9.1 g/dL (14.0-18.0); Mean Corpuscular Hemoglobin 27.7 pg (25-34); Mean Corpuscular Hgb Conc 32.2 g/dL (32-36); Mean Corpuscular Volume 86.3 fL (80-100); Mean Platelet Volume 9.5 fL (7.4-10.4); Platelet Count 186 K/uL (130-400); RDW Coefficient of Variation 16.7 % (11.5-14.5); Red Blood Count 3.28 M/uL (4.7-6.1)
[2020-02-12] MEDS: THIAMINE HCL 100 MG in SYRINGE 9 ML IV SCH (08:53)
[2020-02-12 09:06] LABS: BUN Creatinine Ratio 20.1 (10-20); Calcium 8.4 mg/dl (8.5-10.1); Creatinine Clr Calc Pharmacy 30.9 ml/min; Est GFR (African American) 52.3; Est GFR (Non-African American) 45.1; Magnesium 1.9 mg/dl (1.8-2.4); Potassium 3.7 mmol/L (3.5-5.1)
[2020-02-12 09:20] LABS: Phosphorus 3.1 mg/dl (2.5-4.9)
[2020-02-12] MEDS: cefTRIAXone SODIUM 1,000 MG in DEXTROSE 5% 50 ML IV SCH (09:35)
[2020-02-12] MEDS: AZITHROMYCIN 250 MG in DEXTROSE 5% 250 ML IV SCH (10:33)
--- NOTE | 2020-02-12 11:52 | Palliative Care Consultation ---
Date of Consultation February 12, 2020 Assessment & Plan (1) Palliative care encounter: This is a 79 year old male who presented to the [facility] from [facility] with altered mental status, SOB and combativeness. The patient has a significant PMH that includes CVA, vascular dementia, scizoaffective disorder, dysphagia s/p CVA, anemia, HTN, BPH with urinary retention (chronic indwelling stafford catheter), and recurrent sepsis. The patient does not have established next of kin and is legal guardianship is held by Radha at [facility] ([phone]). The patient has decreased PO intake, confusion and is overall emaciated with a > 40 pound weight loss over the past few months. He is being treated for UTI and PNA. The patient is a Full code. Palliative Care was consulted to discuss goals of care. I was able to see the patient in room 236. He was lying on his side, in no apparent distress. He was non verbal during my encounter. No combativeness was noted during my encounter. The gentleman is a severely emaciated and cachectic individual. He is receiving treatment; however, we fear that even with resolution of his underlying infection, this gentleman has a poor prognosis with severe protein caloric malnourishment and severe dementia. His FAST score is all of 6 and all of 7, indicating severe dementia. I was able to have a lengthy conversation with Radha, the patients legal guardian through [facility]. She indicated that she has not been able to see this individual since December but has stated that he has been discussed over numerous care plan meetings with the executive housekeeper, Chrissy Bell, regarding his code status. I discussed the risks outweighing the benefits with chest compressions, shocking and intubation. She mentioned that the executive housekeeper would entertain completing a POLST form indicating DNR. Obtained a fax # [phone] for which it was sent over. We also discussed at length that it is currently not safe to feed this individual. We are awaiting a ST consultation, but enteral nutrition may be recommended for safety. Circled back to expressing that it may be beneficial to get an understanding of goals of care for this individual. I did express the risks outweighing the benefits regarding tube feedings in a severely malnourished and end-stage dementia patient which include; aspiration, infection, trauma from pulling out tubes, and overall inability to solve the underlying medical condition. Radha fully understands. I did offer an ipad visit for her as she has an autoimmune condition and is unable to visit. As visitors are welcome and the patient is not covid + the executive housekeeper may visit this patient while he is inpatient. For now, await return of POLST indicating DNR/DNI, continue current treatment and reassess daily. (2) Severe protein-calorie malnutrition: (3) Sepsis: Sepsis acute organ dysfunction status: with acute organ dysfunction Sepsis type: sepsis due to unspecified organism Severe sepsis acute organ dysfunction type: encephalopathy Severe sepsis shock status: without septic shock Qualified Code(s): A41.9 - Sepsis, unspecified organism; R65.20 - Severe sepsis without septic shock; G93.40 - Encephalopathy, unspecified (4) CKD (chronic kidney disease), stage III: Chronic kidney disease stage 3 subtype: unspecified whether 3a or 3b Qualified Code(s): N18.30 - Chronic kidney disease, stage 3 unspecified (5) Metabolic encephalopathy: History of Present Illness Reason for Consultation: goals of care Requesting Physician: Dr. Leger Attending Physician: Fanny Leger, History of Present Illness This is a 79 year old male who presented to the [facility] from [facility] with altered mental status, SOB and combativeness. The patient has a significant PMH that includes CVA, vascular dementia, scizoaffective disorder, dysphagia s/p CVA, anemia, HTN, BPH with urinary retention (chronic indwelling stafford catheter), and recurrent sepsis. The patient does not have established next of kin and is legal guardianship is held by Radha at [facility] ([phone]). The patient has decreased PO intake, confusion and is overall emaciated with a > 40 pound weight loss over the past few months. He is being treated for UTI and PNA. The patient is a Full code. Palliative Care was consulted to discuss goals of care. Please see A/P for further information. Thanks for involving the palliative care team with this unfortunate patient. Allergies Allergy/AdvReac Type Severity Reaction Status Date / Time olanzapine Allergy Mild "IT DOES Verified 02/09/20 12:53 NOT WORK" risperidone Allergy Unknown UNKNOWN Verified 02/09/20 12:53 lisinopril AdvReac Severe Verified 02/09/20 12:53 Influenza Virus Vaccines AdvReac PAIN AT Verified 02/09/20 12:53 INJECTION SITE Tricyclic Antidepressants Allergy Unknown Unknown Uncoded 02/09/20 12:53 Home Medications Home Medications Medication Instructions Recorded Confirmed Type Artificial Tears (PF) 1 drp OPB BID 11/22/18 02/09/20 History benztropine 1 mg PO BID 11/22/18 02/09/20 History docusate sodium 100 mg PO BID 11/22/18 02/09/20 History fluphenazine decanoate 25 mg IM MONTHLY 11/22/18 02/09/20 History memantine 10 mg PO BID 11/22/18 02/09/20 History mirtazapine 30 mg PO HS@199911/22/18 02/09/20 History acetaminophen [Tylenol] 650 mg PO Q4 PRN MDD 3G 03/15/19 02/09/20 History tamsulosin 0.4 mg PO QAM@0800 03/15/19 02/09/20 History finasteride 5 mg PO QAM@0800 05/07/19 02/09/20 History fluphenazine HCl 2.5 mg PO Q6H PRN 05/07/19 02/09/20 History perphenazine 0 mg PO UD 06/05/19 02/09/20 History Saccharomyces boulardii [Florastor] 250 mg PO BID 02/09/20 02/09/20 History bisacodyl [Dulcolax (bisacodyl)] 10 mg MI DAILY PRN 02/09/20 02/09/20 History lactase [Lactaid] 3,000 unit PO TIDM 02/09/20 02/09/20 History melatonin 0 mg PO UD PRN 02/09/20 02/09/20 History multivitamin with minerals 1 tab PO DAILY 02/09/20 02/09/20 History Patient History Medical History (Updated 02/12/20 @ 11:52 by TANNA Garrison) Anemia Anxiety BPH loc w urin obs/LUTS CKD (chronic kidney disease), stage III Dementia Dysphagia following CVA H/O: CVA (cerebrovascular accident) Hemangioma of lip HTN (hypertension) Indwelling Stafford catheter present Muscle weakness (generalized) Palliative care encounter Pulmonary nodule Schizoaffective disorder Sepsis due to Pseudomonas March 2019 Urinary retention Urinary retention due to benign prostatic hyperplasia Surgical History Hx of cataract surgery S/P tonsillectomy Family History Other Hypertension Social History Smoking Status: Unknown if ever smoked Years Smoked: 50; Second Hand Exposure: No; Hx Alcohol Use: No Hx Substance Use: No Preferred Language: Slovak Communication Ability: Unable 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: No Beliefs That Will Affect Care: None marital status: Single Current Living Situation: Snf [facility] Other Information That Helps Us Care for You: No Feels Safe at Home: Yes Safety Concerns: Feels Safe At This Time Assistive Devices: None Review of Systems Review of Systems: Unobtainable due to cognitive status Physical Exam Constitutional: + ill appearing, + thin, + cachectic, + disheveled, cooperative and + malnourished Neck: trachea midline, no thyromegaly Respiratory: normal respiratory effort and + cough Auscultation: + rales and + rhonchi Cardiovascular: Rate/Rhythm: regular rate and regular rhythm Vessels: dorsalis pedis pulses present and radial pulses present Extremities: normal capillary refill; no edema Gastrointestinal (Abdomen): normal bowel sounds, soft, nontender, no hepatosplenomegaly Skin: + ecchymosis and + pallor Psychiatric: Orientation: alert; + not oriented x 3 Lymphatic: no cervical or axillary lymphadenopathy Results & Data ([facility]) Vital Signs (Past 12 Hours) Vital Signs Temp Pulse Pulse Resp BP Pulse Ox 02/12/20 11:29 36.2 C L 63 19 104/59 L 92 02/12/20 07:27 36.3 C L 69 19 145/78 H 94 02/12/20 03:41 36.4 C L 74 20 145/70 H 93 02/11/20 23:59 70 PG Care Time/CCT Total # of Minutes Spent Total Time Spent with Patient: Total time spent is greater than 50% in coordination of care (as documented) at patient's floor/unit and/or counseling patient: 100 Coding Level of Care Code 99899 Inpt Consult Level 4 Diagnoses Palliative care encounter Z51.5 Severe protein-calorie malnutrition E43 Sepsis A41.9; R65.20; G93.40 Sepsis acute organ dysfunction status: with acute organ dysfunction Sepsis type: sepsis due to unspecified organism Severe sepsis acute organ dysfunction type: encephalopathy Severe sepsis shock status: without septic shock CKD (chronic kidney disease), stage III N18.30 Chronic kidney disease stage 3 subtype: unspecified whether 3a or 3b Metabolic encephalopathy G93.41 Time Spent (min) 100 Time Spent Midlevel Total time spent 100 minutes with > 50% of that time spent assessing the patient, discussing goals of care with guardianship through [facility], and collaborting with IDT.
[2020-02-12] MEDS: DEXTROSE 5% 1,000 ML IV SCH (15:19)
--- NOTE | 2020-02-12 19:21 | Hospitalist Progress Note ---
Date of Service February 12, 2020 Assessment & Plan (1) Sepsis: Likely related to pneumonia. Possible bacteremia. Currently compensated. Clinical improvement with Rocephin and doxy, continue this now. Remains somewhat hypothermic so use tracey hugger as needed to keep temp in the normal range. For this reason, continue telemetry monitoring with intensive nursing care for another night, especially given the patient's full code status and poor prognosis overall. (2) Pneumonia: Improved, cont abs as above. Pulmonary toilet as able. Continues off oxygen. (3) UTI (urinary tract infection): GN bacteria growing on repeat culture. Cont Rocephin pending speciation and sensitivities. (4) Acute renal failure: Persists. Pt is eating, Na is improved, he is now off combination Vanc/Zosyn so hope this improves. If not, may ne related to ATN. Will cont to trend and monitor. Avoid NSAIDs, contrast and other nephrotoxic agents and renally dose meds as appropriate. (5) Anemia: around baseline, no active bleeding noted and no need for transfusion at this time. 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 Speech still unable to evaluate him today 2/2 poor mental status and agitation/combativeness. (7) Severe protein-calorie malnutrition: Cont thiamine. Sash Sticker consult. Speech following-now on a diet. He has wasting on exam indicative of a chronic weight loss and malnutrition situation. He has lost a documented 40 lbs since July 2019. Will discuss this with guardian and continue to revisit goals of care. Palliative consulted and in conversation with his guardian. (8) Urinary retention due to benign prostatic hyperplasia: - Continue Guy for now - may need urology consult although it appears pt has failed maximal medical therapy and declined invasive procedure for intervention. Consider TOV prior to discharge. (9) Schizoaffective disorder: - Continue outpatient meds. Zyprexa PRN combativeness. (10) Dementia: Per RN at [facility], pt's mental has been gradually worsening over past several months. Home meds restarted now that tolerating PO. Cont to reorient as able. Keep good day/night cycles. Turn off the TV if patient not watching. (11) DVT prophylaxis: heparin Full Code Dispo-cont PCU for now until he is more normothermic and stabilized in light of his code status. Fanny Leger DO [facility] Hospitalist Admission and Anticipated Discharge Date Admission Date: February 09, 2020 Subjective starting to open his eyes and be more alert and interactive voice was very weak and I couldn't understand what he was trying to say He was still questionably oriented and had some difficulty following instructions He is now able to eat some though, which is an improvement. Palliative provider had a a discussion with his guardian and they are considering code status change. Review of Systems Review of Systems: Unobtainable due to cognitive status Physical Exam Physical Exam: CONSTITUTIONAL: thin, emaciated, vitals as above, more alert today and not combative. Some difficutly following instructions, however. EYES: normal conjunctivae, no scleral icterus ENT: external ear and nose normal, large growth on lip that is purplish in color and fleshy, mucous membranes are dry appearing. RESPIRATORY: clear to auscultation bilaterally, no crackles, rales or wheezes, normal respiratory effort CARDIOVASCULAR: regular rate and rhythm, S1 and 2 heard without murmurs, gallops or rubs, no JVD, no peripheral edema GASTROINTESTINAL: soft, nontender, nondistended MUSCULOSKELETAL: strength 5/5 throughout in arms bilaterally, limited leg movement, bedbound since admission, head is normocephalic and atraumatic SKIN: warm and dry NEUROLOGIC: uncertain if he is oriented at this point but appears improved from yesterday. Results & Data Results & Data ([facility]) Vital Signs (Past 12 Hours) Vital Signs Temp Pulse Pulse Resp BP Pulse Ox 02/12/20 16:00 67 02/12/20 15:10 35.5 C L 71 16 116/66 96 02/12/20 11:29 36.2 C L 63 19 104/59 L 92 02/12/20 07:27 36.3 C L 69 19 145/78 H 94 Laboratory Results Short CBC 02/12/20 Range/Units 08:36 WBC 10.70 (4.8-10.8) K/uL Hgb 9.1 L (14.0-18.0) g/dL Hct 28.3 L (42-52) % Plt Count 186 (130-400) K/uL BMP 02/12/20 08:36 Sodium 141 Potassium 3.7 Chloride 110 H Carbon Dioxide 27 BUN 29 H Creatinine 1.46 H Glucose 93 Calcium 8.4 L Medications Administered Current Inpatient Medications Acetaminophen (Acetaminophen 325 Mg Tab) 650 mg PO Q4H PRN PRN Reason: Pain or Fever Stop: 03/10/20 18:42 Benztropine Mesylate (Benztropine Mesylate 1 Mg Tab) 1 mg PO 0800,1700 [facility] Stop: 03/10/20 19:59 Last Admin: 02/12/20 15:18 Dose: 1 mg Documented by: Finasteride (Finasteride 5 Mg Tab) 5 mg PO QAM@0800 [facility] Stop: 03/11/20 07:59 Last Admin: 02/12/20 08:20 Dose: 5 mg Documented by: Heparin Sodium (Porcine) (Heparin Sod 5,000 Unit/0.5 Ml Vial) 5,000 units SQ Q12 [facility] Stop: 03/11/20 20:59 Last Admin: 02/12/20 08:21 Dose: 5,000 units Documented by: Dextrose (D5w) 1,000 mls @ 75 mls/hr IV .[id number] [facility] Stop: 03/11/20 09:14 Last Admin: 02/12/20 15:19 Dose: 75 mls/hr Documented by: Thiamine HCl 100 mg/ Syringe 10 mls @ 2 mls/min IV QAM [facility] Stop: 03/11/20 18:59 Last Admin: 02/12/20 08:53 Dose: 2 mls/min Documented by: Ceftriaxone Sodium 1,000 mg/ (Dextrose) 50 mls @ 100 mls/hr IV Q24H [facility]; Protocol Stop: 02/18/20 09:59 Last Infusion: 02/12/20 10:05 Dose: Infused Documented by: Azithromycin 250 mg/ Dextrose 252.5 mls @ 125 mls/hr IV Q24H [facility] Stop: 02/16/20 10:59 Last Infusion: 02/12/20 12:46 Dose: Infused Documented by: Memantine (Memantine Hcl 10 Mg Tab) 10 mg PO 0800,1700 [facility] Stop: 03/10/20 19:59 Last Admin: 02/12/20 15:18 Dose: 10 mg Documented by: Mirtazapine (Mirtazapine Tab 15 Mg Tab) 30 mg PO HS@2000 [facility] Stop: 03/10/20 19:59 Last Admin: 02/11/20 21:00 Dose: Not Given Documented by: Olanzapine (Olanzapine 10 Mg/2.1 Ml Sdv) 2.5 mg IM BID PRN PRN Reason: Agitation Stop: 03/10/20 18:42 Tamsulosin HCl (Tamsulosin Hcl 0.4 Mg Cap) 0.4 mg PO QAM@0800 [facility] Stop: 03/11/20 07:59 Last Admin: 02/12/20 08:20 Dose: 0.4 mg Documented by: (1) Sepsis Sepsis type: sepsis due to unspecified organism Sepsis acute organ dysfunction status: with acute organ dysfunction Severe sepsis acute organ dysfunction type: encephalopathy Severe sepsis shock status: without septic shock Qualified Code(s): A41.9 - Sepsis, unspecified organism; R65.20 - Severe sepsis without septic shock; G93.40 - Encephalopathy, unspecified (2) Pneumonia Pneumonia type: due to unspecified organism Laterality: left Lung location: lower lobe of lung Qualified Code(s): J18.9 - Pneumonia, unspecified organism (3) UTI (urinary tract infection) Urinary tract infection type: acute cystitis Hematuria presence: with hematuria Qualified Code(s): N30.01 - Acute cystitis with hematuria (4) Acute renal failure Acute renal failure type: unspecified Qualified Code(s): N17.9 - Acute kidney failure, unspecified (5) Anemia Anemia type: unspecified type Qualified Code(s): D64.9 - Anemia, unspecified (6) Dysphagia Dysphagia type: unspecified Qualified Code(s): R13.10 - Dysphagia, unspecified (7) Schizoaffective disorder Schizoaffective disorder type: unspecified Qualified Code(s): F25.9 - Schizoaffective disorder, unspecified (8) Dementia Dementia type: vascular dementia Dementia behavioral disturbance: with beh avioral disturbance Qualified Code(s): F01.51 - Vascular dementia with behavioral disturbance
[2020-02-12] MEDS: MIRTAZAPINE TAB 15 MG TAB PO SCH (19:51)
[2020-02-13] MEDS: MEMANTINE HCL 10 MG TAB PO SCH ×2 (07:27→16:07)
[2020-02-13] MEDS: BENZTROPINE MESYLATE 1 MG TAB PO SCH ×2 (07:27→16:06)
[2020-02-13] MEDS: THIAMINE HCL 100 MG in SYRINGE 9 ML IV SCH (07:44)
[2020-02-13] MEDS: FINASTERIDE 5 MG TAB PO SCH (08:22)
[2020-02-13] MEDS: TAMSULOSIN HCL 0.4 MG CAP PO SCH (08:22)
[2020-02-13] MEDS: CEROVITE ADV FORMULA TAB PO SCH (08:22)
[2020-02-13] MEDS: HEPARIN SOD 5,000 UNIT/0.5 ML VIAL SQ SCH ×2 (08:22→20:54)
[2020-02-13 08:28] LABS: Hematocrit (blood only) 30.1 % (42-52); Mean Corpuscular Hemoglobin 28.6 pg (25-34); Mean Corpuscular Hgb Conc 33.2 g/dL (32-36); Mean Platelet Volume 10.1 fL (7.4-10.4); Platelet Count 232 K/uL (130-400); RDW Coefficient of Variation 16.4 % (11.5-14.5); RDW Standard Deviation 51.3 fL (36.4-46.3); White Blood Count 10.69 K/uL (4.8-10.8)
[2020-02-13 09:00] LABS: BUN Creatinine Ratio 21.5 (10-20); Calcium 8.8 mg/dl (8.5-10.1); Creatinine Clr Calc Pharmacy 35.2 ml/min; Est GFR (African American) 63.1; Est GFR (Non-African American) 54.4; Potassium 3.4 mmol/L (3.5-5.1)
[2020-02-13] MEDS ORDERED: POTASSIUM CHLORIDE 20 MEQ/15 ML UDC PO STA (09:20)
--- NOTE | 2020-02-13 09:26 | Hospitalist Progress Note ---
Date of Service February 13, 2020 Assessment & Plan (1) Sepsis: Likely related to pneumonia. Possible bacteremia, and UTI. Currently compensated. Clinical improvement with abx but switch Rocephin to cefepime based on urine culture results. Remains somewhat hypothermic so use tracey hugger as needed to keep temp in the normal range. Cont to check rectal temp which appears to be the most accurate. (2) Pneumonia: Improved, Cefepime and azithro as above. Pulmonary toilet as able. Continues to do well off oxygen. (3) UTI (urinary tract infection): Repeat urine culture reveals MDR Morganella and MDR pseudomonas. Switched Rocephin to Cefepime to cover these pathogens. Removed stafford and plan for tOV- replace stafford if he fails. There is some resistance on this culture. The patient has this in addition to a pneumonia and an indwelling Stafford catheter and is physically and mentally declined as a custodial patient. He has a h/o MRSA in the past. No current sputum sample could be collected 2/2 combativeness early during admission. Was on Vanc/Zosyn initially this admission which was switched to Rocephin/Azithro to avoid renal insufficiency from this combination. Now Cefepime/Azithro as above with the new pathogens. Will consult [facility] for assistance with definitive antibiotic selection and treatment duration. (4) Acute renal failure: Improving. Pt is eating, hypernatremia is resolved, he is now off combination Vanc/Zosyn which may be helping. Will cont to trend and monitor. Avoid NSAIDs, contrast and other nephrotoxic agents and renally dose meds as appropriate. (5) Anemia: around baseline, no active bleeding noted and no need for transfusion at this time. Likely multifactorial including chronic disease. 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 He is now tolerating PO as his mental status is improved. He is still a high aspiration risk but will continue working with Speech Pathology. (7) Severe protein-calorie malnutrition: Unrestricted diet. Cont thiamine. Ship Cleaner consult. Speech following. He has an emaciated look on exam indicative of a chronic weight loss and malnutrition situation. He has lost a documented 40 lbs since July 2019. This was discussed with guardian and palliative provider is in conversation currently regarding code status and goals of care. (8) Urinary retention due to benign prostatic hyperplasia: TOV today especially in light of CAUTI with multi-drug resistance. Will replace new Stafford only if needed for urinary retention issues. Cont finasteride and flomax which has been on board. (9) Schizoaffective disorder: - Continue outpatient meds. Zyprexa PRN combativeness. He is doing very well today and is in good spirits. (10) Dementia: Per RN at SNF, pt's mental has been gradually worsening over past several months. Home meds restarted now that tolerating PO. Cont to reorient as able. Keep good day/night cycles. Turn off the TV if patient not watching. (11) DVT prophylaxis: heparin Full Code Dispo-cont PCU for now until he is more normothermic and stabilized in light of his code status. Fanny [facility] and Anticipated Discharge Date Admission Date: February 09, 2020 Subjective Feeling well today Denies having any pain Asking for chocolate ice cream Reports that he doesn't usually have a ofley catheter in. Review of Systems Review of Systems: All systems reviewed & are unremarkable except as noted in Subjective Physical Exam Physical Exam: CONSTITUTIONAL: thin, emaciated, vitals as above, more alert today and not combative. Well-appearing EYES: normal conjunctivae, no scleral icterus ENT: external ear and nose normal, large growth on lip that is purplish in color and fleshy, mucous membranes are moist. RESPIRATORY: clear to auscultation bilaterally, no crackles, rales or wheezes, normal respiratory effort CARDIOVASCULAR: regular rate and rhythm, S1 and 2 heard without murmurs, gallops or rubs, no JVD, no peripheral edema GASTROINTESTINAL: soft, nontender, nondistended MUSCULOSKELETAL: strength 5/5 throughout in arms bilaterally, limited leg movement, bedbound since admission, head is normocephalic and atraumatic SKIN: warm and dry NEUROLOGIC: no gross focal deficits. He does have a weak voice but is able to answer questions appropriately. Appears to be in good spirits today. Results & Data Results & Data ([facility]) Vital Signs (Past 12 Hours) Vital Signs Temp Pulse Resp BP BP Pulse Ox 02/13/20 07:17 35.5 C L 80 18 136/63 95 11/10/20 04:06 36.4 C L 84 20 158/64 H 90 02/12/20 23:54 36.4 C L 93 H 18 139/89 92 Laboratory Results Short CBC 02/13/20 Range/Units 07:45 WBC 10.69 (4.8-10.8) K/uL Hgb 10.0 L (14.0-18.0) g/dL Hct 30.1 L (42-52) % Plt Count 232 (130-400) K/uL BMP 02/13/20 07:45 Sodium 141 Potassium 3.4 L Chloride 110 H Carbon Dioxide 26 BUN 27 H Creatinine 1.25 Glucose 78 Calcium 8.8 Medications Administered Current Inpatient Medications Acetaminophen (Acetaminophen 325 Mg Tab) 650 mg PO Q4H PRN PRN Reason: Pain or Fever Stop: 03/10/20 18:42 Benztropine Mesylate (Benztropine Mesylate 1 Mg Tab) 1 mg PO 0800,1700 [facility] Stop: 03/10/20 19:59 Last Admin: 02/13/20 07:27 Dose: 1 mg Documented by: Finasteride (Finasteride 5 Mg Tab) 5 mg PO QAM@0800 [facility] Stop: 03/11/20 07:59 Last Admin: 02/13/20 08:22 Dose: 5 mg Documented by: Heparin Sodium (Porcine) (Heparin Sod 5,000 Unit/0.5 Ml Vial) 5,000 units SQ Q12 [facility] Stop: 03/11/20 20:59 Last Admin: 02/13/20 08:22 Dose: 5,000 units Documented by: Thiamine HCl 100 mg/ Syringe 10 mls @ 2 mls/min IV QAM [facility] Stop: 03/11/20 18:59 Last Admin: 02/13/20 07:44 Dose: 2 mls/min Documented by: Azithromycin 250 mg/ Dextrose 252.5 mls @ 125 mls/hr IV Q24H [facility] Stop: 02/16/20 10:59 Last Infusion: 02/12/20 12:46 Dose: Infused Documented by: Cefepime HCl 1,000 mg/ Syringe 11.3 mls @ 5.5 mls/min IV DAILY [facility]; Protocol Stop: 02/18/20 09:29 Memantine (Memantine Hcl 10 Mg Tab) 10 mg PO 0800,1700 [facility] Stop: 03/10/20 19:59 Last Admin: 02/13/20 07:27 Dose: 10 mg Documented by: Mirtazapine (Mirtazapine Tab 15 Mg Tab) 30 mg PO HS@2000 [facility] Stop: 03/10/20 19:59 Last Admin: 02/12/20 19:51 Dose: 30 mg Documented by: Multivitamins/Minerals (Cerovite Adv Formula Tab) 1 tab PO DAILY [facility] Stop: 03/14/20 08:59 Last Admin: 02/13/20 08:22 Dose: 1 tab Documented by: Olanzapine (Olanzapine 10 Mg/2.1 Ml Sdv) 2.5 mg IM BID PRN PRN Reason: Agitation Stop: 03/10/20 18:42 Potassium Chloride (Potassium Chloride 20 Meq/15 Ml Udc) 40 meq PO NOW STA Stop: 02/13/20 09:21 Tamsulosin HCl (Tamsulosin Hcl 0.4 Mg Cap) 0.4 mg PO QAM@0800 [facility] Stop: 03/11/20 07:59 Last Admin: 02/13/20 08:22 Dose: 0.4 mg Documented by: (1) UTI (urinary tract infection) Hematuria presence: with hematuria Urinary tract infection type: acute cystitis Qualified Code(s): N30.01 - Acute cystitis with hematuria (2) Acute renal failure Acute renal failure type: unspecified Qualified Code(s): N17.9 - Acute kidney failure, unspecified (3) Anemia Anemia type: unspecified type Qualified Code(s): D64.9 - Anemia, unspecified (4) Dysphagia Dysphagia type: unspecified Qualified Code(s): R13.10 - Dysphagia, unspecified (5) Dementia Dementia behavioral disturbance: with behavioral disturbance Dementia type: vascular dementia Qualified Code(s): F01.51 - Vascular dementia with behavioral disturbance (6) Schizoaffective disorder Schizoaffective disorder type: unspecified Qualified Code(s): F25.9 - Schizoaffective disorder, unspecified (7) Sepsis Sepsis acute organ dysfunction status: with acute organ dysfunction Sepsis type: sepsis due to unspecified organism Severe sepsis acute organ dysfunction type: encephalopathy Severe sepsis shock status: without septic shock Qualified Code(s): A41.9 - Sepsis, unspecified organism; R65.20 - Severe sepsis without septic shock; G93.40 - Encephalopathy, unspecified (8) Pneumonia Laterality: left Lung location: lower lobe of lung Pneumonia type: due to unspecified organism Qualified Code(s): J18.9 - Pneumonia, unspecified organism
[2020-02-13] MEDS: CEFEPIME 1,000 MG in SYRINGE 0 ML IV SCH (10:33)
[2020-02-13] MEDS: AZITHROMYCIN 250 MG in DEXTROSE 5% 250 ML IV SCH (11:43)
[2020-02-13] MEDS: MIRTAZAPINE TAB 15 MG TAB PO SCH (20:54)
[2020-02-14] MEDS: MEMANTINE HCL 10 MG TAB PO SCH ×2 (07:32→16:51)
[2020-02-14] MEDS: FINASTERIDE 5 MG TAB PO SCH (07:33)
[2020-02-14] MEDS: TAMSULOSIN HCL 0.4 MG CAP PO SCH (07:33)
[2020-02-14] MEDS: CEROVITE ADV FORMULA TAB PO SCH (07:33)
[2020-02-14] MEDS: BENZTROPINE MESYLATE 1 MG TAB PO SCH ×2 (07:33→16:51)
[2020-02-14] MEDS ORDERED: ACETAMINOPHEN 325 MG TAB PO PRN (07:40)
[2020-02-14 07:44] LABS: Hematocrit (blood only) 26.7 % (42-52); Hemoglobin 8.6 g/dL (14.0-18.0); Mean Corpuscular Hemoglobin 28.1 pg (25-34); Mean Corpuscular Hgb Conc 32.2 g/dL (32-36); Mean Corpuscular Volume 87.3 fL (80-100); Mean Platelet Volume 10.1 fL (7.4-10.4); Platelet Count 233 K/uL (130-400); RDW Coefficient of Variation 16.6 % (11.5-14.5); RDW Standard Deviation 52.7 fL (36.4-46.3); Red Blood Count 3.06 M/uL (4.7-6.1); White Blood Count 10.25 K/uL (4.8-10.8)
[2020-02-14 08:13] LABS: BUN Creatinine Ratio 18.9 (10-20); Calcium 8.8 mg/dl (8.5-10.1); Creatinine Clr Calc Pharmacy 34.3 ml/min; Est GFR (African American) 59.6; Est GFR (Non-African American) 51.4; Potassium 4.2 mmol/L (3.5-5.1)
[2020-02-14] MEDS: HEPARIN SOD 5,000 UNIT/0.5 ML VIAL SQ SCH ×2 (10:28→21:57)
[2020-02-14] MEDS: CEFEPIME 1,000 MG in SYRINGE 0 ML IV SCH (10:28)
[2020-02-14] MEDS: THIAMINE HCL 100 MG TAB PO SCH (10:29)
[2020-02-14] MEDS: AZITHROMYCIN 250 MG in DEXTROSE 5% 250 ML IV SCH (10:44)
--- NOTE | 2020-02-14 10:51 | Urology Consultation ---
Date of Consultation February 14, 2020 Assessment & Plan (1) Urinary retention due to benign prostatic hyperplasia: (2) Sepsis: (3) UTI (urinary tract infection): 79 year-old male patient, with multiple comorbidities, admitted with sepsis secondary to pneumonia and UTI. -Urology consulted to assist with catheter removal for TOV in light of CAUTI with multi-drug resistance. -Plan of care reviewed with Dr. Chinchilla. -Stafford catheter removed without complications. Patient tolerated well. -Recommend close observation for urinary retention. -Plan for bladder scan q shift with straight cath if >300 cc. -If continued straight cath required, recommend reinsertion of stafford catheter. -Continue supportive care and antibiotic therapy per primary team. Thank you for allowing us to participate in the acute care of Mr. Mcfarland. Please reconsult us with additional questions, concerns or changes in patient status. History of Present Illness Reason for Consultation: Difficult stafford removal Attending Physician: Rolan Jones MD History of Present Illness 79 year-old male with a history of prior CVA, vascular dementia, schizoaffective disorder, dysphagia s/p CVA, anemia, HTN, BPH w/ urinary retention and chronic stafford, pulmonary nodule, and prior episode of sepsis in 2018 and in 2019, who was brought to hospital from [facility] due to acute worsening of his mental status with agitation, combativeness as well as respiratory difficulties. Patient was admitted with sepsis felt secondary to pneumonia and UTI. Urology was consulted due to difficulty with stafford catheter removal. Patient is a known patient to [facility] u[facility], former patient of Dr. Buchanan. Patient currently resides at [facility]. TOV was recommended by primary service in light of catheter-associated UTI. Upon catheter removal, resistance was met and stafford catheter was unable to be removed. Patient does have an extensive urologic history of urinary retention with unsuccessful TOV in past requiring chronic indwelling stafford catheter. Most recent cystoscopy was in March 2019. Currently on Tamsulosin and Finasteride. Chart review: T max temperature 37.6, most recent temperature 36.8. Wbc 10.25 Hgb 8.6 Creatinine 1.31 Urine culture positive for morganella morganii and pseudomonas aeruginosa, ID consulted. Currently on IV Cefepime and Azithromycin. Patient does have baseline dementia. Disoriented at time of exam. Does answer "no" when asked if he has any pain. States he is feeling "good". Does have periods of restlessness during exam. Stafford catheter intact draining concentrated yellow with some sediment. Denies additional urologic concerns today. Allergies Allergy/AdvReac Type Severity Reaction Status Date / Time olanzapine Allergy Mild "IT DOES Verified 02/09/20 12:53 NOT WORK" risperidone Allergy Unknown UNKNOWN Verified 02/09/20 12:53 lisinopril AdvReac Severe Verified 02/09/20 12:53 Influenza Virus Vaccines AdvReac PAIN AT Verified 02/09/20 12:53 INJECTION SITE Tricyclic Antidepressants Allergy Unknown Unknown Uncoded 02/09/20 12:53 Home Medications Home Medications Medication Instructions Recorded Confirmed Type Artificial Tears (PF) 1 drp OPB BID 11/22/18 02/09/20 History benztropine 1 mg PO BID 11/22/18 02/09/20 History docusate sodium 100 mg PO BID 11/22/18 02/09/20 History fluphenazine decanoate 25 mg IM MONTHLY 11/22/18 02/09/20 History memantine 10 mg PO BID 11/22/18 02/09/20 History mirtazapine 30 mg PO HS@2000 11/22/18 02/09/20 History acetaminophen [Tylenol] 650 mg PO Q4 PRN MDD 3G 03/15/19 02/09/20 History tamsulosin 0.4 mg PO QAM@0800 03/15/19 02/09/20 History finasteride 5 mg PO QAM@0800 05/07/19 02/09/20 History fluphenazine HCl 2.5 mg PO Q6H PRN 05/07/19 02/09/20 History perphenazine 0 mg PO UD 06/05/19 02/09/20 History Saccharomyces boulardii [Florastor] 250 mg PO BID 02/09/20 02/09/20 History bisacodyl [Dulcolax (bisacodyl)] 10 mg MS DAILY PRN 02/09/20 02/09/20 History lactase [Lactaid] 3,000 unit PO TIDM 02/09/20 02/09/20 History melatonin 0 mg PO UD PRN 02/09/20 02/09/20 History multivitamin with minerals 1 tab PO DAILY 02/09/20 02/09/20 History Patient History Medical History Anemia Anxiety BPH loc w urin obs/LUTS CKD (chronic kidney disease), stage III Dementia Dysphagia following CVA H/O: CVA (cerebrovascular accident) Hemangioma of lip HTN (hypertension) Indwelling Stafford catheter present Muscle weakness (generalized) Palliative care encounter Pulmonary nodule Schizoaffective disorder Sepsis due to Pseudomonas March 2019 Urinary retention Urinary retention due to benign prostatic hyperplasia Surgical History Hx of cataract surgery S/P tonsillectomy Family History (Reviewed 02/14/20 @ 11: by TANNA Cohen) Other Hypertension Social History (Reviewed 02/14/20 @ 11: by TANNA Cohen) Smoking Status: Unknown if ever smoked Years Smoked: 50; Second Hand Exposure: No; Hx Alcohol Use: No Hx Substance Use: No Preferred Language: Danish Communication Ability: Unable Senior Service Technician Required: No Beliefs That Will Affect Care: None marital status: Single Current Living Situation: Half-Way Current Living Situation Comment: [facility] Other Information That Helps Us Care for You: No Feels Safe at Home: Yes Safety Concerns: Feels Safe At This Time Assistive Devices: None Review of Systems Review of Systems: Unobtainable due to cognitive status Genitourinary: + as per Subjective / HPI Neurologic: as per Subjective / HPI Physical Exam Constitutional: + frail appearing and cooperative; not ill appearing and not combative ENMT: Ears: no external ear abnormality Lesion to right upper lip Neck: normal visual inspection and trachea midline Respiratory: normal respiratory effort; no respiratory distress, no cough and no audible wheezes Cardiovascular: Extremities: no edema Gastrointestinal (Abdomen): Inspection/Auscultation: abdomen normal to inspection; abdomen not distended Percussion/Palpation: abdomen soft; abdomen nontender and no guarding Musculoskeletal: Moves all extremities without difficulty. Neurologic: awake Psychiatric: Orientation: alert and cooperative; + not oriented to place and + not oriented to time Affect: euthymic affect Genitourinary: Stafford catheter intact with notable meatal erosion. Stafford draining concentrated yellow urine with some sediment. Results & Data ([facility]) Vital Signs (Past 12 Hours) Vital Signs Temp Pulse Pulse Resp BP BP Pulse Ox 02/14/20 07:29 37.6 C H 78 18 123/68 93 02/14/20 05:01 37.1 C 73 20 120/72 92 02/13/20 23:45 78 02/13/20 23:29 37.4 C 85 18 102/63 91 PG Care Time/CCT Total # of Minutes Spent Total Time Spent with Patient: Total time spent is greater than 50% in coordination of care (as documented) at patient's floor/unit and/or counseling patient: Coding Level of Care Code 99266 Initial Inpt Care Lvl 2 Diagnoses Urinary retention due to benign prostatic hyperplasia N40.1; R33.8 Sepsis A41.9; R65.20; G93.40 Sepsis acute organ dysfunction status: with acute organ dysfunction Sepsis type: sepsis due to unspecified organism Severe sepsis acute organ dysfunction type: encephalopathy Severe sepsis shock status: without septic shock UTI (urinary tract infection) N30.01 Hematuria presence: with hematuria Urinary tract infection type: acute cystitis (1) UTI (urinary tract infection) Hematuria presence: with hematuria Urinary tract infection type: acute cystitis Qualified Code(s): N30.01 - Acute cystitis with hematuria (2) Sepsis Sepsis acute organ dysfunction status: with acute organ dysfunction Sepsis type: sepsis due to unspecified organism Severe sepsis acute organ dysfunction type: encephalopathy Severe sepsis shock status: without septic shock Qualified Code(s): A41.9 - Sepsis, unspecified organism; R65.20 - Severe sepsis without septic shock; G93.40 - Encephalopathy, unspecified
--- NOTE | 2020-02-14 12:27 | Hospitalist Progress Note ---
Date of Service February 14, 2020 Assessment & Plan (1) Sepsis: -as per 02/09/2020 admission History and Physical " This is a 79 y/o male with a history of prior CVA, vascular dementia, schizoaffective d/o, dysphagia s/p CVA, anemia, HTN, BPH w/ urinary retention and chronic Stafford, pulmonary nodule, and prior episode of sepsis in 2018 and in 2019, who was brought to the ED today via EMS from [facility] due to acute worsening of his mental status with agitation, combativeness as well as respiratory difficulties. History from the patient is unobtainable so the chart and records from the SNF were extensively reviewed. Additionally, I was able to speak with Cathy, the RN lunchroom food service supervisor at [facility], although history is still quite limited. Staff at the facility report a gradual decline in patient's mental status since he was discharged from [facility] in July. However, over the past 2-3 days, he has acutely worsened with increased confusion and agitation as well as refusing to eat or drink anything. This morning, he was apparently acutely worse so EMS was called. He was combative at the SNF, hitting and kicking at the EMS providers and had to be "wrestled" onto the stretcher. In the ED, he was initially so agitated that they were unable to evaluate him so he was given Zyprexa for sedation with improvement. Per nursing, he continues to remain confused and irritable, although they have been able to evaluate the patient. During the work-up he was found to have pneumonia and likely a UTI." -as per previous note on 02/13/[address] Leger that patient's sepsis "Likely related to pneumonia. Possible bacteremia, and UTI. Currently compensated. Clinical improvement with abx but switch Rocephin to cefepime based on urine culture results. Remains somewhat hypothermic so use tracey hugger as needed to keep temp in the normal range. Cont to check rectal temp which appears to be the most accurate." -02/14/2020: temperature stable at this time, continue antibiotics (2) Pneumonia: -off initial antibiotics of Vancomycin and Zosyn -continue IV Cefepime and IV Azithromycin (3) UTI (urinary tract infection): -Repeat urine culture reveals MDR Morganella and MDR pseudomonas. Switched Rocephin to Cefepime to cover these pathogens. Removed stafford and plan for tOV-replace stafford if he fails. There is some resistance on this culture. The patient has this in addition to a pneumonia and an indwelling Stafford catheter and is physically and mentally declined as a longterm patient. He has a h/o MRSA in the past. No current sputum sample could be collected 2/2 combativeness early during admission. Was on Vanc/Zosyn initially this admission which was switched to Rocephin/Azithro to avoid renal insufficiency from this combination. Now Cefepime/Azithro as above with the new pathogens -await [facility] ID recommendation in regards to further ntibiotic selection and treatment duration. (4) Urinary retention due to benign prostatic hyperplasia: -Cont finasteride and flomax -02/14/2020: Patient in deep sleep on the bed. Snoring. No acute events on telemetry. breathing on room air. As per nurse, urology was able to take off the stafford today on 02/14/2020. Patient to be monitored in case any future urinary retention without the stafford (5) Acute renal failure: -Improved -hypernatremia is resolved -Avoid NSAIDs, contrast and other nephrotoxic agents and renally dose meds as appropriate. (6) Anemia: -around baseline, no active bleeding noted and no need for transfusion at this time. Likely multifactorial including chronic disease. (7) Dysphagia: -Related to prior CVA - pt is on a pureed diet with thin liquids, uses straws, crushed meds at baseline -as per previous hospitalist Dr. Leger, patient has tolerated oral diet as his mental status is improved. He is still a high aspiration risk but will continue working with Speech Pathology. (8) Severe protein-calorie malnutrition: -Unrestricted diet. Cont thiamine. [facility] consult. Speech following. He has an emaciated look on exam indicative of a chronic weight loss and malnutrition situation. He has lost a documented 40 lbs since July 2019. This was discussed with guardian and palliative provider is in conversation currently regarding code status and goals of care as per previous hospitalist Dr. Leger's notes (9) Schizoaffective disorder: - Continue outpatient meds (10) Dementia: -Per RN at SNF, pt's mental has been gradually worsening over past several months (11) DVT prophylaxis: heparin Full Code Admission and Anticipated Discharge Date Admission Date: February 09, 2020 Subjective Patient in deep sleep on the bed. Snoring. No acute events on telemetry. breathing on room air. As per nurse, urology was able to take off the stafford today on 02/14/2020. Patient to be monitored in case any future urinary retention without the stafford Review of Systems Review of Systems: Unobtainable due to cognitive status Physical Exam Constitutional: WD/WN, vitals as above Eyes: sleeping ENMT: known lip deformity Neck: normal visual inspection Respiratory: normal respiratory effort, lungs clear to auscultation Cardiovascular: Rate/Rhythm: regular rate and regular rhythm Gastrointestinal (Abdomen): Inspection/Auscultation: normal bowel sounds Percussion/Palpation: abdomen soft Musculoskeletal: Head/Neck/Chest: normocephalic Skin: SCDs to leg Neurologic: patient sleeping Psychiatric: patient sleeping Results & Data Results & Data ([facility]) Vital Signs (Past 12 Hours) Vital Signs Temp Pulse Resp BP BP Pulse Ox 02/14/20 11:06 36.8 C 68 19 117/70 93 02/14/20 07:29 37.6 C H 78 18 123/68 93 02/14/20 05:01 37.1 C 73 20 120/72 92 (1) Sepsis Sepsis type: sepsis due to unspecified organism Sepsis acute organ dysfunction status: with acute organ dysfunction Severe sepsis acute organ dysfunction type: encephalopathy Severe sepsis shock status: without septic shock Qualified Code(s): A41.9 - Sepsis, unspecified organism; R65.20 - Severe sepsis without septic shock; G93.40 - Encephalopathy, unspecified (2) Pneumonia Pneumonia type: due to unspecified organism Laterality: left Lung location: lower lobe of lung Qualified Code(s): J18.9 - Pneumonia, unspecified organism (3) UTI (urinary tract infection) Urinary tract infection type: acute cystitis Hematuria presence: with hematuria Qualified Code(s): N30.01 - Acute cystitis with hematuria (4) Acute renal failure Acute renal failure type: unspecified Qualified Code(s): N17.9 - Acute kidney failure, unspecified (5) Anemia Anemia type: unspecified type Qualified Code(s): D64.9 - Anemia, unspecified (6) Dysphagia Dysphagia type: unspecified Qualified Code(s): R13.10 - Dysphagia, unspecified (7) Schizoaffective disorder Schizoaffective disorder type: unspecified Qualified Code(s): F25.9 - Schizoaffective disorder, unspecified (8) Dementia Dementia type: vascular dementia Dementia behavioral disturbance: with behavioral disturbance Qualified Code(s): F01.51 - Vascular dementia with behavioral disturbance
[2020-02-14] MEDS: MIRTAZAPINE TAB 15 MG TAB PO SCH (21:56)
[2020-02-15] MEDS: BENZTROPINE MESYLATE 1 MG TAB PO SCH ×2 (09:27→17:32)
[2020-02-15] MEDS: MEMANTINE HCL 10 MG TAB PO SCH ×2 (09:27→17:33)
[2020-02-15] MEDS: TAMSULOSIN HCL 0.4 MG CAP PO SCH (09:27)
[2020-02-15] MEDS: THIAMINE HCL 100 MG TAB PO SCH (09:27)
[2020-02-15] MEDS: CEROVITE ADV FORMULA TAB PO SCH (09:28)
[2020-02-15] MEDS: CEFEPIME 1,000 MG in SYRINGE 0 ML IV SCH (09:29)
[2020-02-15] MEDS: FINASTERIDE 5 MG TAB PO SCH (09:30)
[2020-02-15] MEDS: HEPARIN SOD 5,000 UNIT/0.5 ML VIAL SQ SCH ×2 (09:33→21:26)
--- NOTE | 2020-02-15 09:51 | Palliative Care Progress Note ---
Date of Service February 15, 2020 Assessment & Plan (1) Palliative care encounter: I was able to see the patient in room 236. He was sitting upright smiling in no apparent distress. No combativeness was noted during my encounter. The patient remains frail; however, was evaluated by speech therapy and is now tolerating a pureed and minced diet. He remains severely emaciated, pale and cachectic but does appear to be returning to his baseline status. His FAST score is all of 6 and all of 7, indicating severe dementia. I was able to have a lengthy conversation with Radha, the patients legal guardian through [facility]. We did fax over a POLSt form for the director at [facility] to complete changing him to a DNR. I recognize that this gentleman having a guardianship does add a layer for consideration with code status. Ultimately, I do feel that even though the patient is returning to his baseline that there would ultimately be more risks than benefits should he decline in the future. She understands and is speaking with Arabella again today. Historically, the patient had mentioned wanting aggressive care. Would suggest completion of that POLST form clarifying goals of care for the individual. Should he decline and not be able to tolerate PO intake, I did express the risks outweighing the benefits regarding tube feedings in a severely malnourished and end-stage dementia patient which include; aspiration, infection, trauma from pulling out tubes, and overall inability to solve the underlying medical condition. Sheila would like a virtual visit to take place on the ipad. She provided times that she is available. Today 02/14 from 3P-4P, tomorrow anytime 8A-12P. This was discussed with nursing who will assist. Confirmed that the fax was received. Would anticipate plan be for him to return to [facility] when medically stable. For now, as patient is returning to baseline, will continue to support [facility] with this individual. We will follow peripherally - please contact us if we can be of further assistance. (2) Severe protein-calorie malnutrition: (3) Sepsis: (4) CKD (chronic kidney disease), stage III: (5) Metabolic encephalopathy: Admission and Anticipated Discharge Date Admission Date: February 09, 2020 Subjective Patient much more interactive today not reliable for ROS Review of Systems Review of Systems: All systems reviewed & are unremarkable except as noted in HPI & below Physical Exam Constitutional: + ill appearing, + thin, + cachectic, + disheveled, cooperative and + malnourished Neck: trachea midline, no thyromegaly Respiratory: normal respiratory effort and + cough Auscultation: + rales and + rhonchi Cardiovascular: Rate/Rhythm: regular rate and regular rhythm Vessels: dorsalis pedis pulses present and radial pulses present Extremities: normal capillary refill; no edema Gastrointestinal (Abdomen): normal bowel sounds, soft, nontender, no hepatosplenomegaly Skin: + ecchymosis and + pallor Psychiatric: Orientation: alert; + not oriented x 3 Lymphatic: no cervical or axillary lymphadenopathy Results & Data ([facility]) Vital Signs (Past 12 Hours) Vital Signs Temp Pulse Resp BP Pulse Ox 02/15/20 08:15 36.3 C L 64 19 140/83 99 PG Care Time/CCT Total # of Minutes Spent Total Time Spent with Patient: Total time spent is greater than 50% in coordination of care (as documented) at patient's floor/unit and/or counseling patient: 45 Coding Level of Care Code 06536 Subseq Hosp Care Lvl 3 Diagnoses Palliative care encounter Z51.5 Severe protein-calorie malnutrition E43 Sepsis A41.9; R65.20; G93.40 Sepsis type: sepsis due to unspecified organism Sepsis acute organ dysfunction status: with acute organ dysfunction Severe sepsis acute organ dysfunction type: encephalopathy Severe sepsis shock status: without septic shock CKD (chronic kidney disease), stage III N18.30 Chronic kidney disease stage 3 subtype: unspecified whether 3a or 3b Metabolic encephalopathy G93.41 Time Spent (min) 45 Time Spent Midlevel Total time spent 45 minutes with > 50% of that time spent assessing the patient, discussing goals of care with guardian at [facility] and collaborating with [facility] (1) Sepsis Sepsis type: sepsis due to unspecified organism Sepsis acute organ dysfunction status: with acute organ dysfunction Severe sepsis acute organ dysfunction type: encephalopathy Severe sepsis shock status: without septic shock Qualified Code(s): A41.9 - Sepsis, unspecified organism; R65.20 - Severe sepsis without septic shock; G93.40 - Encephalopathy, unspecified (2) CKD (chronic kidney disease), stage III Chronic kidney disease stage 3 subtype: unspecified whether 3a or 3b Qualified Code(s): N18.30 - Chronic kidney disease, stage 3 unspecified
--- NOTE | 2020-02-15 12:57 | Hospitalist Progress Note ---
Date of Service February 15, 2020 Assessment & Plan (1) Sepsis: -as per 02/09/2020 admission History and Physical " This is a 79 y/o male with a history of prior CVA, vascular dementia, schizoaffective d/o, dysphagia s/p CVA, anemia, HTN, BPH w/ urinary retention and chronic Stafford, pulmonary nodule, and prior episode of sepsis in 2019 and in 2019, who was brought to the ED today via EMS from [facility] due to acute worsening of his mental status with agitation, combativeness as well as respiratory difficulties. History from the patient is unobtainable so the chart and records from the SNF were extensively reviewed. Additionally, I was able to speak with Cathy, the RN home energy consultant supervisor at [facility], although history is still quite limited. Staff at the facility report a gradual decline in patient's mental status since he was discharged from [facility] in July. However, over the past 2-3 days, he has acutely worsened with increased confusion and agitation as well as refusing to eat or drink anything. This morning, he was apparently acutely worse so EMS was called. He was combative at the SNF, hitting and kicking at the EMS providers and had to be "wrestled" onto the stretcher. In the ED, he was initially so agitated that they were unable to evaluate him so he was given Zyprexa for sedation with improvement. Per nursing, he continues to remain confused and irritable, although they have been able to evaluate the patient. During the work-up he was found to have pneumonia and likely a UTI." -as per previous note on 02/13/[address] Leger that patient's sepsis "Likely related to pneumonia. Possible bacteremia, and UTI. Currently compensated. Clinical improvement with abx but switch Rocephin to cefepime based on urine culture results. Remains somewhat hypothermic so use tracey hugger as needed to keep temp in the normal range. Cont to check rectal temp which appears to be the most accurate." -02/14/2020: temperature stable at this time, continue antibiotics -02/15/2020 Patient seen and examined while he was feeding himself the lunch. Patient awake and verbal but sometimes mumbling speech which is similar to previous hospital encounters with the patient on previous hospital admissions. telemetry continues to be without acute events. Patient denies acute pain or other symptoms.The plans will be to transfer patient off telemetry on 02/15/2020 to [facility]. Discussed with palliative care team and shoe parts caser that the [facility] Infectious Disease payroll consultant that 10 day total course of IV antibiotics will be appropriate to treat the urinary tract infection. Since patient was admitted on 02/09/2020 with empiric antibiotic treatment started it may be reasonable for patient to be discharged back to [facility] by Wednesday02/19/2020 versus Wednesday02/20/2020 assuming no future hospital course complications (2) Pneumonia: -off initial antibiotics of Vancomycin and Zosyn -continue IV Cefepime as per Infectious disease recommendations on 02/14/2020, stopped the IV azithromycin as per the ID recommendations (3) UTI (urinary tract infection): -as per previous hospitalist Dr. Leger 02/13/2020 note "Repeat urine culture reveals MDR Morganella and MDR pseudomonas. Switched Rocephin to Cefepime to cover these pathogens. Removed stafford and plan for tOV-replace stafford if he fails. There is some resistance on this culture. The patient has this in addition to a pneumonia and an indwelling Stafford catheter and is physically and mentally declined as a prison patient. He has a h/o MRSA in the past. No current sputum sample could be collected 2/2 combativeness early during admission. Was on Vanc/Zosyn initially this admission which was switched to Rocephin/Azithro to avoid renal insufficiency from this combination. Now Cefepime/Azithro as above with the new pathogens" -continue IV Cefepime at this time (4) Urinary retention due to benign prostatic hyperplasia: -Cont finasteride and flomax -02/14/2020: Patient in deep sleep on the bed. Snoring. No acute events on telemetry. breathing on room air. As per nurse, urology was able to take off the stafford today on 02/14/2020. Patient to be monitored in case any future urinary retention without the stafford -02/15/2020: Continue to monitor without stafford, monitor if any urinary retention (5) Acute renal failure: -Improved -hypernatremia is resolved -Avoid NSAIDs, contrast and other nephrotoxic agents and renally dose meds as appropriate. (6) Anemia: -around baseline, no active bleeding noted and no need for transfusion at this time. Likely multifactorial including chronic disease. (7) Dysphagia: -Related to prior CVA - pt is on a pureed diet with thin liquids, uses straws, crushed meds at baseline -eating the pureed diet currently while in hospital (8) Severe protein-calorie malnutrition: -Unrestricted diet. Cont thiamine. Cloud Automation Tester consult. Speech following. He has an emaciated look on exam indicative of a chronic weight loss and malnutrition situation. He has lost a documented 40 lbs since July 2019. This was discussed with guardian who with [facility] and palliative care team in regards to future code status and goals of care as per previous hospitalist Dr. Leger's notes (9) Schizoaffective disorder: - Continue outpatient meds (10) Dementia: -Per RN at SNF, pt's mental has been gradually worsening over past several months (11) DVT prophylaxis: heparin Full Code Admission and Anticipated Discharge Date Admission Date: February 09, 2020 Subjective Patient seen and examined while he was feeding himself the lunch. Patient awake and verbal but sometimes mumbling speech which is similar to previous hospital encounters with the patient on previous hospital admissions. telemetry continues to be without acute events. Patient denies acute pain or other symptoms. 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) Neck: normal visual inspection Respiratory: normal respiratory effort, lungs clear to auscultation Cardiovascular: Rate/Rhythm: regular rate and regular rhythm Gastrointestinal (Abdomen): Inspection/Auscultation: normal bowel sounds Percussion/Palpation: abdomen soft Musculoskeletal: Head/Neck/Chest: normocephalic Neurologic: PERRL, EOMI, accommodation nl, no face palsy, no dysarthria awake Psychiatric: Orientation: alert and cooperative Results & Data Results & Data ([facility]) Vital Signs (Past 12 Hours) Vital Signs Temp Pulse Resp BP BP Pulse Ox 02/15/20 11:17 36.5 C 72 18 92/53 L 95 02/15/20 08:15 36.3 C L 64 19 140/83 99 (1) Sepsis Sepsis type: sepsis due to unspecified organism Sepsis acute organ dysfunction status: with acute organ dysfunction Severe sepsis acute organ dysfunction type: encephalopathy Severe sepsis shock status: without septic shock Qualified Code(s): A41.9 - Sepsis, unspecified organism; R65.20 - Severe sepsis without septic shock; G93.40 - Encephalopathy, unspecified (2) Pneumonia Pneumonia type: due to unspecified organism Laterality: left Lung location: lower lobe of lung Qualified Code(s): J18.9 - Pneumonia, unspecified organism (3) UTI (urinary tract infection) Urinary tract infection type: acute cystitis Hematuria presence: with hematuria Qualified Code(s): N30.01 - Acute cystitis with hematuria (4) Acute renal failure Acute renal failure type: unspecified Qualified Code(s): N17.9 - Acute kidney failure, unspecified (5) Anemia Anemia type: unspecified type Qualified Code(s): D64.9 - Anemia, unspecified (6) Dysphagia Dysphagia type: unspecified Qualified Code(s): R13.10 - Dysphagia, unspecified (7) Schizoaffective disorder Schizoaffective disorder type: unspecified Qualified Code(s): F25.9 - Schizoaffective disorder, unspecified (8) Dementia Dementia type: vascular dementia Dementia behavioral disturbance: with behavioral disturbance Qualified Code(s): F01.51 - Vascular dementia with behavioral disturbance
[2020-02-15] MEDS: AZITHROMYCIN 250 MG in DEXTROSE 5% 250 ML IV SCH (15:31)
[2020-02-15] MEDS: MIRTAZAPINE TAB 15 MG TAB PO SCH (21:25)
[2020-02-16 07:48] LABS: Basophils # (auto) 0.12 K/uL (0-0.2); Basophils % (auto) 1.3 %; Eosinophils # (auto) 0.04 K/uL (0-0.5); Eosinophils % (auto) 0.4 %; Hematocrit (blood only) 27.5 % (42-52); Hemoglobin 9.1 g/dL (14.0-18.0); Immature Granulocytes # (auto) 0.14 K/uL (0.00-0.02); Immature Granulocytes % (auto) 1.5 %; Lymphocytes # (auto) 0.85 K/uL (1.2-3.4); Lymphocytes % (auto) 9.4 %; Mean Corpuscular Hemoglobin 28.8 pg (25-34); Mean Corpuscular Hgb Conc 33.1 g/dL (32-36); Mean Platelet Volume 9.7 fL (7.4-10.4); Monocytes # (auto) 0.86 K/uL (0.11-0.59); Monocytes % (auto) 9.5 %; Neutrophils # (auto) 7.04 K/uL (1.4-6.5); Neutrophils % (auto) 77.9 %; Platelet Count 272 K/uL (130-400); RDW Coefficient of Variation 16.5 % (11.5-14.5); RDW Standard Deviation 51.1 fL (36.4-46.3); Red Blood Count 3.16 M/uL (4.7-6.1); White Blood Count 9.05 K/uL (4.8-10.8)
[2020-02-16 08:24] LABS: Albumin Level 1.8 gm/dl (3.4-5.0); BUN Creatinine Ratio 16.8 (10-20); Calcium 8.7 mg/dl (8.5-10.1); Creatinine Clr Calc Pharmacy 31.5 ml/min; Est GFR (African American) 52.3; Est GFR (Non-African American) 45.1; Magnesium 2.1 mg/dl (1.8-2.4)
[2020-02-16 08:27] LABS: Albumin Globulin Ratio 0.4 (0.9-2); Bilirubin,Total 0.4 mg/dl (0.2-1); Globulin 4.3 gm/dl (2.5-4.0); Phosphorus 2.7 mg/dl (2.5-4.9); Total Protein 6.1 gm/dl (6.4-8.2)
--- NOTE | 2020-02-16 09:03 | Hospitalist Progress Note ---
Date of Service February 16, 2020 Assessment & Plan (1) Sepsis: -as per 02/09/2020 admission History and Physical " This is a 79 y/o male with a history of prior CVA, vascular dementia, schizoaffective d/o, dysphagia s/p CVA, anemia, HTN, BPH w/ urinary retention and chronic Stafford, pulmonary nodule, and prior episode of sepsis in 2018 and in 2019, who was brought to the ED today via EMS from [facility] due to acute worsening of his mental status with agitation, combativeness as well as respiratory difficulties. History from the patient is unobtainable so the chart and records from the SNF were extensively reviewed. Additionally, I was able to speak with Cathy, the RN supervisor instrument repair at [facility], although history is still quite limited. Staff at the facility report a gradual decline in patient's mental status since he was discharged from [facility] in July. However, over the past 2-3 days, he has acutely worsened with increased confusion and agitation as well as refusing to eat or drink anything. This morning, he was apparently acutely worse so EMS was called. He was combative at the SNF, hitting and kicking at the EMS providers and had to be "wrestled" onto the stretcher. In the ED, he was initially so agitated that they were unable to evaluate him so he was given Zyprexa for sedation with improvement. Per nursing, he continues to remain confused and irritable, although they have been able to evaluate the patient. During the work-up he was found to have pneumonia and likely a UTI." -as per previous note on 02/13/[address] Leger that patient's sepsis "Likely related to pneumonia. Possible bacteremia, and UTI. Currently compensated. Clinical improvement with abx but switch Rocephin to cefepime based on urine culture results. Remains somewhat hypothermic so use tracey hugger as needed to keep temp in the normal range. Cont to check rectal temp which appears to be the most accurate." -02/14/2020: temperature stable at this time, continue antibiotics -02/15/2020 Patient seen and examined while he was feeding himself the lunch. Patient awake and verbal but sometimes mumbling speech which is similar to previous hospital encounters with the patient on previous hospital admissions. telemetry continues to be without acute events. Patient denies acute pain or other symptoms.The plans will be to transfer patient off telemetry on 02/15/2020 to [facility]. Discussed with palliative care team and case investigator that the [facility] Infectious Disease jd edwards consultant that 10 day total course of IV antibiotics will be appropriate to treat the urinary tract infection. Since patient was admitted on 02/09/2020 with empiric antibiotic treatment started it may be reasonable for patient to be discharged back to [facility] by Wednesday02/19/2020 versus Wednesday02/20/2020 assuming no future hospital course complications (2) Pneumonia: -off initial antibiotics of Vancomycin and Zosyn -continue IV Cefepime as per Infectious disease recommendations on 02/14/2020, stopped the IV azithromycin as per the ID recommendations (3) UTI (urinary tract infection): -as per previous hospitalist Dr. Leger 02/13/2020 note "Repeat urine culture reveals MDR Morganella and MDR pseudomonas. Switched Rocephin to Cefepime to cover these pathogens. Removed stafford and plan for tOV-replace stafford if he fails. There is some resistance on this culture. The patient has this in addition to a pneumonia and an indwelling Stafford catheter and is physically and mentally declined as a alf patient. He has a h/o MRSA in the past. No current sputum sample could be collected 2/2 combativeness early during admission. Was on Vanc/Zosyn initially this admission which was switched to Rocephin/Azithro to avoid renal insufficiency from this combination. Now Cefepime/Azithro as above with the new pathogens" -continue IV Cefepime at this time (4) Urinary retention due to benign prostatic hyperplasia: -Cont finasteride and flomax -02/14/2020: Patient in deep sleep on the bed. Snoring. No acute events on telemetry. breathing on room air. As per nurse, urology was able to take off the stafford today on 02/14/2020. Patient to be monitored in case any future urinary retention without the stafford -02/16/2020: a new stafford had to be placed because of urinary retention of 700 ml (5) Acute renal failure: -Improved -hypernatremia is resolved -Avoid NSAIDs, contrast and other nephrotoxic agents and renally dose meds as appropriate. (6) Anemia: -around baseline, no active bleeding noted and no need for transfusion at this time. Likely multifactorial including chronic disease. (7) Dementia: -Per RN at SNF, pt's mental has been gradually worsening over past several months (8) Schizoaffective disorder: - Continue outpatient meds (9) Dysphagia: -Related to prior CVA - pt is on a pureed diet with thin liquids, uses straws, crushed meds at baseline -eating the pureed diet currently while in hospital (10) Severe protein-calorie malnutrition: -Unrestricted diet. Cont thiamine. Brusher Operator consult. Speech following. He has an emaciated look on exam indicative of a chronic weight loss and malnutrition situation. He has lost a documented 40 lbs since July 2019. This was discussed with guardian who with [facility] and palliative care team in regards to future code status and goals of care as per previous hospitalist Dr. Leger's notes but there does not appear to be any acute changes to current FULL CODE status to date (11) DVT prophylaxis: heparin Admission and Anticipated Discharge Date Admission Date: February 09, 2020 Subjective a new stafford had to be placed because of urinary retention of 700 ml. patient seen jez examined on 2 liters/min nasal cannula with good reported O2 saturation. He is eating the meals on his own. no respiratory distress. he does not speak much but denies being in any acute pain or shortness of breath. 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) Neck: normal visual inspection Respiratory: normal respiratory effort Cardiovascular: Rate/Rhythm: regular rate and regular rhythm Gastrointestinal (Abdomen): Inspection/Auscultation: normal bowel sounds Percussion/Palpation: abdomen soft Musculoskeletal: Head/Neck/Chest: normocephalic Neurologic: PERRL, EOMI, accommodation nl, no face palsy, no dysarthria awake Psychiatric: Orientation: alert and cooperative Results & Data Results & Data ([facility]) Vital Signs (Past 12 Hours) Vital Signs Temp Pulse Resp BP Pulse Ox 02/16/20 07:10 36.2 C L 78 18 101/69 97 02/16/20 06:38 88 19 93 02/16/20 00:39 36.7 C 70 14 107/60 97 (1) Sepsis Sepsis type: sepsis due to unspecified organism Sepsis acute organ dysfunction status: with acute organ dysfunction Severe sepsis acute organ dysfunction type: encephalopathy Severe sepsis shock status: without septic shock Qualified Code(s): A41.9 - Sepsis, unspecified organism; R65.20 - Severe sepsis without septic shock; G93.40 - Encephalopathy, unspecified (2) Pneumonia Pneumonia type: due to unspecified organism Laterality: left Lung location: lower lobe of lung Qualified Code(s): J18.9 - Pneumonia, unspecified organism (3) UTI (urinary tract infection) Urinary tract infection type: acute cystitis Hematuria presence: with hematuria Qualified Code(s): N30.01 - Acute cystitis with hematuria (4) Acute renal failure Acute renal failure type: unspecified Qualified Code(s): N17.9 - Acute kidney failure, unspecified (5) Anemia Anemia type: unspecified type Qualified Code(s): D64.9 - Anemia, unspecified (6) Dysphagia Dysphagia type: unspecified Qualified Code(s): R13.10 - Dysphagia, unspecified (7) Schizoaffective disorder Schizoaffective disorder type: unspecified Qualified Code(s): F25.9 - Schizoaffective disorder, unspecified (8) Dementia Dementia type: vascular dementia Dementia behavioral disturbance: with behavioral disturbance Qualified Code(s): F01.51 - Vascular dementia with behavioral disturbance
[2020-02-16] MEDS: MEMANTINE HCL 10 MG TAB PO SCH ×2 (09:24→17:52)
[2020-02-16] MEDS: TAMSULOSIN HCL 0.4 MG CAP PO SCH (09:25)
[2020-02-16] MEDS: CEROVITE ADV FORMULA TAB PO SCH (09:25)
[2020-02-16] MEDS: THIAMINE HCL 100 MG TAB PO SCH (09:25)
[2020-02-16] MEDS: FINASTERIDE 5 MG TAB PO SCH (09:26)
[2020-02-16] MEDS: BENZTROPINE MESYLATE 1 MG TAB PO SCH ×2 (09:26→17:52)
[2020-02-16] MEDS: HEPARIN SOD 5,000 UNIT/0.5 ML VIAL SQ SCH ×2 (09:26→20:37)
[2020-02-16] MEDS: CEFEPIME 1,000 MG in SYRINGE 0 ML IV SCH (09:59)
[2020-02-16] MEDS ORDERED: SODIUM CHLORIDE 0.9% 500 ML IV SCH (12:45)
[2020-02-16] MEDS: MIRTAZAPINE TAB 15 MG TAB PO SCH (20:37)
[2020-02-17] MEDS: TAMSULOSIN HCL 0.4 MG CAP PO SCH (09:20)
[2020-02-17] MEDS: BENZTROPINE MESYLATE 1 MG TAB PO SCH ×2 (09:20→17:04)
[2020-02-17] MEDS: MEMANTINE HCL 10 MG TAB PO SCH ×2 (09:20→17:04)
[2020-02-17] MEDS: FINASTERIDE 5 MG TAB PO SCH (09:21)
[2020-02-17] MEDS: HEPARIN SOD 5,000 UNIT/0.5 ML VIAL SQ SCH ×2 (09:21→21:26)
[2020-02-17] MEDS: CEFEPIME 1,000 MG in SYRINGE 0 ML IV SCH (09:21)
[2020-02-17] MEDS: THIAMINE HCL 100 MG TAB PO SCH (09:22)
[2020-02-17] MEDS: CEROVITE ADV FORMULA TAB PO SCH (09:22)
--- NOTE | 2020-02-17 10:12 | Hospitalist Progress Note ---
Date of Service February 17, 2020 Assessment & Plan (1) Sepsis: -as per 02/09/2020 admission History and Physical " This is a 79 y/o male with a history of prior CVA, vascular dementia, schizoaffective d/o, dysphagia s/p CVA, anemia, HTN, BPH w/ urinary retention and chronic Stafford, pulmonary nodule, and prior episode of sepsis in 2018 and in 2019, who was brought to the ED today via EMS from [facility] due to acute worsening of his mental status with agitation, combativeness as well as respiratory difficulties. History from the patient is unobtainable so the chart and records from the SNF were extensively reviewed. Additionally, I was able to speak with Cathy, the RN corrugator supervisor at [facility], although history is still quite limited. Staff at the facility report a gradual decline in patient's mental status since he was discharged from [facility] in July. However, over the past 2-3 days, he has acutely worsened with increased confusion and agitation as well as refusing to eat or drink anything. This morning, he was apparently acutely worse so EMS was called. He was combative at the SNF, hitting and kicking at the EMS providers and had to be "wrestled" onto the stretcher. In the ED, he was initially so agitated that they were unable to evaluate him so he was given Zyprexa for sedation with improvement. Per nursing, he continues to remain confused and irritable, although they have been able to evaluate the patient. During the work-up he was found to have pneumonia and likely a UTI." -as per previous note on 02/13/[address] Leger that patient's sepsis "Likely related to pneumonia. Possible bacteremia, and UTI. Currently compensated. Clinical improvement with abx but switch Rocephin to cefepime based on urine culture results. Remains somewhat hypothermic so use tracey hugger as needed to keep temp in the normal range. Cont to check rectal temp which appears to be the most accurate." -02/14/2020: temperature stable at this time, continue antibiotics -02/15/2020 Patient seen and examined while he was feeding himself the lunch. Patient awake and verbal but sometimes mumbling speech which is similar to previous hospital encounters with the patient on previous hospital admissions. telemetry continues to be without acute events. Patient denies acute pain or other symptoms.The plans will be to transfer patient off telemetry on 02/15/2020 to [facility]. Discussed with palliative care team and correctional case records supervisor that the [facility] Infectious Disease continuous improvement consultant that 10 day total course of IV antibiotics will be appropriate to treat the urinary tract infection. Since patient was admitted on 02/09/2020 with empiric antibiotic treatment started it may be reasonable for patient to be discharged back to [facility] by Wednesday02/19/2020 versus Wednesday02/20/2020 assuming no future hospital course complications (2) Pneumonia: -off initial antibiotics of Vancomycin and Zosyn -continue IV Cefepime as per Infectious disease recommendations on 02/14/2020, stopped the IV azithromycin as per the ID recommendations (3) UTI (urinary tract infection): -as per previous hospitalist Dr. Leger 02/13/2020 note "Repeat urine culture reveals MDR Morganella and MDR pseudomonas. Switched Rocephin to Cefepime to cover these pathogens. Removed stafford and plan for tOV-replace stafford if he fails. There is some resistance on this culture. The patient has this in addition to a pneumonia and an indwelling Stafford catheter and is physically and mentally declined as a senior living patient. He has a h/o MRSA in the past. No current sputum sample could be collected 2/2 combativeness early during admission. Was on Vanc/Zosyn initially this admission which was switched to Rocephin/Azithro to avoid renal insufficiency from this combination. Now Cefepime/Azithro as above with the new pathogens" -continue IV Cefepime at this time (4) Urinary retention due to benign prostatic hyperplasia: -Cont finasteride and flomax -02/14/2020: Patient in deep sleep on the bed. Snoring. No acute events on telemetry. breathing on room air. As per nurse, urology was able to take off the stafford today on 02/14/2020. Patient to be monitored in case any future urinary retention without the stafford -02/16/2020: a new stafford had to be placed because of urinary retention of 700 ml (5) Acute renal failure: -hypernatremia is resolved -Avoid NSAIDs, contrast and other nephrotoxic agents and renally dose meds as appropriate. -renal function overall has improved on this hospital stay but did have again creatinine 1.46 on 02/16/2020 likely from recurrent urinary retention that required stafford placement - he did get some IV fluids -follow the renal function (6) Anemia: -around baseline, no active bleeding noted and no need for transfusion at this time. Likely multifactorial including chronic disease. (7) Dementia: -Per RN at [facility], pt's mental has been gradually worsening over past several months (8) Schizoaffective disorder: - Continue outpatient meds (9) Dysphagia: -Related to prior CVA - pt is on a pureed diet with thin liquids, uses straws, crushed meds at baseline -eating the pureed diet currently while in hospital (10) Severe protein-calorie malnutrition: -Unrestricted diet. Cont thiamine. Solid Waste Facility Supervisor consult. Speech following. He has an emaciated look on exam indicative of a chronic weight loss and malnutrition situation. He has lost a documented 40 lbs since July 2019. This was discussed with guardian who with Office of Aging and palliative care team in regards to future code status and goals of care as per previous hospitalist Dr. Leger's notes but there does not appear to be any acute changes to current FULL CODE status to date (11) DVT prophylaxis: heparin Admission and Anticipated Discharge Date Admission Date: February 09, 2020 Subjective No acute distress. Patient denies acute symptoms or new concerns. he does not have acute pain. 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) Neck: normal visual inspection Respiratory: normal respiratory effort, lungs clear to auscultation normal respiratory effort Cardiovascular: Rate/Rhythm: regular rate and regular rhythm Gastrointestinal (Abdomen): Inspection/Auscultation: normal bowel sounds Percussion/Palpation: abdomen soft Musculoskeletal: Head/Neck/Chest: normocephalic Neurologic: PERRL, EOMI, accommodation nl, no face palsy, no dysarthria awake Psychiatric: Orientation: alert and cooperative Genitourinary: no testicular masses, no penis abnormality (stafford) Results & Data Results & Data ([facility]) Vital Signs (Past 12 Hours) Vital Signs Temp Pulse Pulse Resp BP BP Pulse Ox 02/17/20 08:07 36.5 C 62 16 116/63 95 02/16/20 23:19 36.8 C 69 14 137/62 93 (1) Sepsis Sepsis type: sepsis due to unspecified organism Sepsis acute organ dysfunction status: with acute organ dysfunction Severe sepsis acute organ dysfunction type: encephalopathy Severe sepsis shock status: without septic shock Qualified Code(s): A41.9 - Sepsis, unspecified organism; R65.20 - Severe sepsis without septic shock; G93.40 - Encephalopathy, unspecified (2) Pneumonia Pneumonia type: due to unspecified organism Laterality: left Lung location: lower lobe of lung Qualified Code(s): J18.9 - Pneumonia, unspecified organism (3) UTI (urinary tract infection) Urinary tract infection type: acute cystitis Hematuria presence: with hematuria Qualified Code(s): N30.01 - Acute cystitis with hematuria (4) Acute renal failure Acute renal failure type: unspecified Qualified Code(s): N17.9 - Acute kidney failure, unspecified (5) Anemia Anemia type: unspecified type Qualified Code(s): D64.9 - Anemia, unspecified (6) Dementia Dementia type: vascular dementia Dementia behavioral disturbance: with behavioral disturbance Qualified Code(s): F01.51 - Vascular dementia with behavioral disturbance (7) Schizoaffective disorder Schizoaffective disorder type: unspecified Qualified Code(s): F25.9 - Schizoaffective disorder, unspecified (8) Dysphagia Dysphagia type: unspecified Qualified Code(s): R13.10 - Dysphagia, unspecified
[2020-02-17] MEDS: MIRTAZAPINE TAB 15 MG TAB PO SCH (21:26)
[2020-02-18 06:42] LABS: BUN Creatinine Ratio 16.6 (10-20); Calcium 8.7 mg/dl (8.5-10.1); Creatinine Clr Calc Pharmacy 38.3 ml/min; Est GFR (African American) 66.3; Est GFR (Non-African American) 57.2; Potassium 4.7 mmol/L (3.5-5.1)
[2020-02-18] MEDS ORDERED: SODIUM CHLORIDE 0.9% 500 ML IV SCH (07:30)
--- NOTE | 2020-02-18 08:06 | Hospitalist Progress Note ---
Date of Service February 18, 2020 Assessment & Plan (1) Sepsis: -as per 02/09/2020 admission History and Physical " This is a 79 y/o male with a history of prior CVA, vascular dementia, schizoaffective d/o, dysphagia s/p CVA, anemia, HTN, BPH w/ urinary retention and chronic Stafford, pulmonary nodule, and prior episode of sepsis in 2018 and in 2019, who was brought to the ED today via EMS from [facility] due to acute worsening of his mental status with agitation, combativeness as well as respiratory difficulties. History from the patient is unobtainable so the chart and records from the SNF were extensively reviewed. Additionally, I was able to speak with Cathy, the RN washing and screening plant supervisor at [facility], although history is still quite limited. Staff at the facility report a gradual decline in patient's mental status since he was discharged from [facility] in July. However, over the past 2-3 days, he has acutely worsened with increased confusion and agitation as well as refusing to eat or drink anything. This morning, he was apparently acutely worse so EMS was called. He was combative at the SNF, hitting and kicking at the EMS providers and had to be "wrestled" onto the stretcher. In the ED, he was initially so agitated that they were unable to evaluate him so he was given Zyprexa for sedation with improvement. Per nursing, he continues to remain confused and irritable, although they have been able to evaluate the patient. During the work-up he was found to have pneumonia and likely a UTI." -as per previous note on 02/13/[address] Leger that patient's sepsis "Likely related to pneumonia. Possible bacteremia, and UTI. Currently compensated. Clinical improvement with abx but switch Rocephin to cefepime based on urine culture results. Remains somewhat hypothermic so use tracey hugger as needed to keep temp in the normal range. Cont to check rectal temp which appears to be the most accurate." -02/14/2020: temperature stable at this time, continue antibiotics -02/15/2020 Patient seen and examined while he was feeding himself the lunch. Patient awake and verbal but sometimes mumbling speech which is similar to previous hospital encounters with the patient on previous hospital admissions. telemetry continues to be without acute events. Patient denies acute pain or other symptoms.The plans will be to transfer patient off telemetry on 02/15/2020 to [facility]. Discussed with palliative care team and mental health case manager that the [facility] Infectious Disease senior management consultant that 10 day total course of IV antibiotics will be appropriate to treat the urinary tract infection. Since patient was admitted on 02/09/2020 with empiric antibiotic treatment started it may be reasonable for patient to be discharged back to [facility] by Wednesday02/19/2020 versus Wednesday02/20/2020 assuming no future hospital course complications (2) Pneumonia: -off initial antibiotics of Vancomycin and Zosyn -continue IV Cefepime as per Infectious disease recommendations on 02/14/2020, stopped the IV azithromycin as per the ID recommendations (3) UTI (urinary tract infection): -as per previous hospitalist Dr. Leger 02/13/2020 note "Repeat urine culture reveals MDR Morganella and MDR pseudomonas. Switched Rocephin to Cefepime to cover these pathogens. Removed stafford and plan for tOV-replace stafford if he fails. There is some resistance on this culture. The patient has this in addition to a pneumonia and an indwelling Stafford catheter and is physically and mentally declined as a prison patient. He has a h/o MRSA in the past. No current sputum sample could be collected 2/2 combativeness early during admission. Was on Vanc/Zosyn initially this admission which was switched to Rocephin/Azithro to avoid renal insufficiency from this combination. Now Cefepime/Azithro as above with the new pathogens" -continue IV Cefepime at this time (4) Urinary retention due to benign prostatic hyperplasia: -Cont finasteride and flomax -02/14/2020: Patient in deep sleep on the bed. Snoring. No acute events on telemetry. breathing on room air. As per nurse, urology was able to take off the stafford today on 02/14/2020. Patient to be monitored in case any future urinary retention without the stafford -02/16/2020: a new stafford had to be placed because of urinary retention of 700 ml, likely to continue stafford even after hospitalization because of recurrent urine retention (5) Acute renal failure: -hypernatremia is resolved -Avoid NSAIDs, contrast and other nephrotoxic agents and renally dose meds as appropriate. -renal function overall has improved on this hospital stay but did have again creatinine 1.46 on 02/16/2020 likely from recurrent urinary retention that required stafford placement - he did get some IV fluids -creatinine 1.2 on 02/18/2020, questionable whether serum potassium labs are truly elevated as 4.7 vs hemolyzed, additional IV fluids ordered for 02/18/2020 (6) Anemia: -around baseline, no active bleeding noted and no need for transfusion at this time. Likely multifactorial including chronic disease. (7) Dementia: -Per RN at SNF, pt's mental has been gradually worsening over past several months (8) Schizoaffective disorder: - Continue outpatient meds (9) Dysphagia: -Related to prior CVA - pt is on a pureed diet with thin liquids, uses straws, crushed meds at baseline -eating the pureed diet currently while in hospital (10) Severe protein-calorie malnutrition: -Unrestricted diet. Cont thiamine. Scoop Operator consult. Speech following. He has an emaciated look on exam indicative of a chronic weight loss and malnutrition situation. He has lost a documented 40 lbs since July 2019. This was discussed with guardian who with Office of Aging and palliative care team in regards to future code status and goals of care as per previous hospitalist Dr. Leger's notes but there does not appear to be any acute changes to current FULL CODE status to date (11) DVT prophylaxis: heparin Admission and Anticipated Discharge Date Admission Date: February 09, 2020 Subjective -creatinine 1.2 on 02/18/2020, questionable whether serum potassium labs are truly elevated as 4.7 vs hemolyzed, additional IV fluids ordered for 02/18/2020 Patient seen and examined with the nurse. Patient needed assistance to reposition on the bed. Patient does not report of any acute symptoms on review of systems. 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) Neck: normal visual inspection Respiratory: normal respiratory effort, lungs clear to auscultation normal respiratory effort Cardiovascular: Rate/Rhythm: regular rate and regular rhythm Gastrointestinal (Abdomen): Inspection/Auscultation: normal bowel sounds Percussion/Palpation: abdomen soft Musculoskeletal: Head/Neck/Chest: normocephalic Neurologic: PERRL, EOMI, accommodation nl, no face palsy, no dysarthria awake Psychiatric: Orientation: alert and cooperative Genitourinary: no testicular masses, no penis abnormality (stafford) Results & Data Results & Data ([facility]) Vital Signs (Past 12 Hours) Vital Signs Temp Pulse Resp BP Pulse Ox 02/18/20 07:13 36.6 C 60 16 157/83 H 95 02/17/20 23:25 36.6 C 68 24 137/70 94 (1) Sepsis Sepsis type: sepsis due to unspecified organism Sepsis acute organ dysfunction status: with acute organ dysfunction Severe sepsis acute organ d ysfunction type: encephalopathy Severe sepsis shock status: without septic shock Qualified Code(s): A41.9 - Sepsis, unspecified organism; R65.20 - Severe sepsis without septic shock; G93.40 - Encephalopathy, unspecified (2) Pneumonia Pneumonia type: due to unspecified organism Laterality: left Lung location: lower lobe of lung Qualified Code(s): J18.9 - Pneumonia, unspecified organism (3) UTI (urinary tract infection) Urinary tract infection type: acute cystitis Hematuria presence: with hematuria Qualified Code(s): N30.01 - Acute cystitis with hematuria (4) Acute renal failure Acute renal failure type: unspecified Qualified Code(s): N17.9 - Acute kidney failure, unspecified (5) Anemia Anemia type: unspecified type Qualified Code(s): D64.9 - Anemia, unspecified (6) Dementia Dementia type: vascular dementia Dementia behavioral disturbance: with behavioral disturbance Qualified Code(s): F01.51 - Vascular dementia with behavioral disturbance (7) Schizoaffective disorder Schizoaffective disorder type: unspecified Qualified Code(s): F25.9 - Schizoaffective disorder, unspecified (8) Dysphagia Dysphagia type: unspecified Qualified Code(s): R13.10 - Dysphagia, unspecified
[2020-02-18] MEDS: CEROVITE ADV FORMULA TAB PO SCH (08:53)
[2020-02-18] MEDS: MEMANTINE HCL 10 MG TAB PO SCH ×2 (08:53→17:30)
[2020-02-18] MEDS: BENZTROPINE MESYLATE 1 MG TAB PO SCH ×2 (08:53→17:30)
[2020-02-18] MEDS: HEPARIN SOD 5,000 UNIT/0.5 ML VIAL SQ SCH ×2 (08:56→21:03)
[2020-02-18] MEDS: TAMSULOSIN HCL 0.4 MG CAP PO SCH (08:56)
[2020-02-18] MEDS: FINASTERIDE 5 MG TAB PO SCH (08:57)
[2020-02-18] MEDS: CEFEPIME 1,000 MG in SYRINGE 0 ML IV SCH (09:23)
[2020-02-18] MEDS: THIAMINE HCL 100 MG TAB PO SCH (12:31)
[2020-02-18] MEDS: MIRTAZAPINE TAB 15 MG TAB PO SCH (21:03)
[2020-02-19 07:55] LABS: Basophils # (auto) 0.06 K/uL (0-0.2); Basophils % (auto) 0.7 %; Eosinophils # (auto) 0.08 K/uL (0-0.5); Hematocrit (blood only) 25.4 % (42-52); Hemoglobin 8.4 g/dL (14.0-18.0); Immature Granulocytes % (auto) 1.2 %; Lymphocytes # (auto) 1.39 K/uL (1.2-3.4); Lymphocytes % (auto) 17.1 %; Mean Corpuscular Hemoglobin 29.3 pg (25-34); Mean Corpuscular Hgb Conc 33.1 g/dL (32-36); Mean Corpuscular Volume 88.5 fL (80-100); Mean Platelet Volume 9.1 fL (7.4-10.4); Monocytes # (auto) 0.65 K/uL (0.11-0.59); Neutrophils # (auto) 5.87 K/uL (1.4-6.5); Platelet Count 366 K/uL (130-400); RDW Coefficient of Variation 17.2 % (11.5-14.5); RDW Standard Deviation 53.8 fL (36.4-46.3); Red Blood Count 2.87 M/uL (4.7-6.1); White Blood Count 8.15 K/uL (4.8-10.8)
[2020-02-19] MEDS: THIAMINE HCL 100 MG TAB PO SCH (08:58)
[2020-02-19] MEDS: BENZTROPINE MESYLATE 1 MG TAB PO SCH ×2 (08:58→16:12)
[2020-02-19] MEDS: MEMANTINE HCL 10 MG TAB PO SCH ×2 (08:58→16:12)
[2020-02-19] MEDS: TAMSULOSIN HCL 0.4 MG CAP PO SCH (08:58)
[2020-02-19] MEDS: CEROVITE ADV FORMULA TAB PO SCH (08:59)
[2020-02-19] MEDS: HEPARIN SOD 5,000 UNIT/0.5 ML VIAL SQ SCH (09:00)
[2020-02-19] MEDS: FINASTERIDE 5 MG TAB PO SCH (09:00)
[2020-02-19] MEDS: CEFEPIME 1,000 MG in SYRINGE 0 ML IV SCH (09:05)
[2020-02-19 09:32] LABS: BUN Creatinine Ratio 15.7 (10-20); Calcium 8.7 mg/dl (8.5-10.1); Creatinine Clr Calc Pharmacy 36.7 ml/min; Est GFR (African American) 63.1; Est GFR (Non-African American) 54.4; Potassium 4.1 mmol/L (3.5-5.1)
--- NOTE | 2020-02-19 11:11 | Hospitalist Progress Note ---
Date of Service February 19, 2020 Assessment & Plan (1) Sepsis: -as per 02/09/2020 admission History and Physical " This is a 79 y/o male with a history of prior CVA, vascular dementia, schizoaffective d/o, dysphagia s/p CVA, anemia, HTN, BPH w/ urinary retention and chronic Stafford, pulmonary nodule, and prior episode of sepsis in 2018 and in 2019, who was brought to the ED today via EMS from [facility] due to acute worsening of his mental status with agitation, combativeness as well as respiratory difficulties. History from the patient is unobtainable so the chart and records from the SNF were extensively reviewed. Additionally, I was able to speak with Cathy, the RN dining room supervisor at [facility], although history is still quite limited. Staff at the facility report a gradual decline in patient's mental status since he was discharged from [facility] in July. However, over the past 2-3 days, he has acutely worsened with increased confusion and agitation as well as refusing to eat or drink anything. This morning, he was apparently acutely worse so EMS was called. He was combative at the SNF, hitting and kicking at the EMS providers and had to be "wrestled" onto the stretcher. In the ED, he was initially so agitated that they were unable to evaluate him so he was given Zyprexa for sedation with improvement. Per nursing, he continues to remain confused and irritable, although they have been able to evaluate the patient. During the work-up he was found to have pneumonia and likely a UTI." -as per previous note on 02/13/[address] Leger that patient's sepsis "Likely related to pneumonia. Possible bacteremia, and UTI. Currently compensated. Clinical improvement with abx but switch Rocephin to cefepime based on urine culture results. Remains somewhat hypothermic so use tracey hugger as needed to keep temp in the normal range. Cont to check rectal temp which appears to be the most accurate." -02/14/2020: temperature stable at this time, continue antibiotics -02/15/2020 Patient seen and examined while he was feeding himself the lunch. Patient awake and verbal but sometimes mumbling speech which is similar to previous hospital encounters with the patient on previous hospital admissions. telemetry continues to be without acute events. Patient denies acute pain or other symptoms.The plans will be to transfer patient off telemetry on 02/15/2020 to [facility]. Discussed with palliative care team and nurse outreach case manager that the [facility] Infectious Disease rural health consultant that 10 day total course of IV antibiotics will be appropriate to treat the urinary tract infection. Since patient was admitted on 02/09/2020 with empiric antibiotic treatment started it may be reasonable for patient to be discharged back to [facility] by Wednesday02/19/2020 (2) Pneumonia: -off initial antibiotics of Vancomycin and Zosyn -continue IV Cefepime as per Infectious disease recommendations on 02/14/2020, stopped the IV azithromycin as per the ID recommendations (3) UTI (urinary tract infection): -as per previous hospitalist Dr. Leger 02/13/2020 note "Repeat urine culture reveals MDR Morganella and MDR pseudomonas. Switched Rocephin to Cefepime to cover these pathogens. Removed stafford and plan for tOV-replace stafford if he fails. There is some resistance on this culture. The patient has this in addition to a pneumonia and an indwelling Stafford catheter and is physically and mentally declined as a senior living patient. He has a h/o MRSA in the past. No current sputum sample could be collected 2/2 combativeness early during admission. Was on Vanc/Zosyn initially this admission which was switched to Rocephin/Azithro to avoid renal insufficiency from this combination. Now Cefepime/Azithro as above with the new pathogens" -patient's dose of IV Cefepime given on 02/19/2020 and at this time should have complete the course of IV antibiotics (4) Urinary retention due to benign prostatic hyperplasia: -Cont finasteride and flomax -02/14/2020: Patient in deep sleep on the bed. Snoring. No acute events on telemetry. breathing on room air. As per nurse, urology was able to take off the stafford today on 02/14/2020. Patient to be monitored in case any future urinary retention without the stafford -02/16/2020: a new stafford had to be placed because of urinary retention of 700 ml, continue stafford even after hospitalization because of recurrent urine retention (5) Acute renal failure: -hypernatremia is resolved -Avoid NSAIDs, contrast and other nephrotoxic agents and renally dose meds as appropriate. -renal function overall has improved on this hospital stay but did have again creatinine 1.46 on 02/16/2020 likely from recurrent urinary retention that required stafford placement - he did get some IV fluids -creatinine 1.2 on 02/18/2020, questionable whether serum potassium labs are truly elevated as 4.7 vs hemolyzed, additional IV fluids ordered for 02/18/2020 (6) Anemia: -around baseline, no active bleeding noted and no need for transfusion at this time. Likely multifactorial including chronic disease. (7) Dementia: -Per RN at SNF, pt's mental has been gradually worsening over past several months -currently at usual mental baseline (8) Schizoaffective disorder: - Continue outpatient meds (9) Dysphagia: -Related to prior CVA - pt is on a pureed diet with thin liquids, uses straws, crushed meds at baseline -eating the pureed diet currently while in hospital (10) Severe protein-calorie malnutrition: -Unrestricted diet. Cont thiamine. Otolaryngology Rep consult. Speech following. He has an emaciated look on exam indicative of a chronic weight loss and malnutrition situation. He has lost a documented 40 lbs since July 2019. This was discussed with guardian who with Office of Aging and palliative care team in regards to future code status and goals of care as per previous hospitalist Dr. Leger's notes but there does not appear to be any acute changes to current FULL CODE status to date (11) DVT prophylaxis: heparin subcutaneous given while inpatient Disposition: completed IV antibiotics on 02/19/2020, COVID screening test negative on 02/19/2020 AM, awaiting nurse outreach case manager for discharge disposition for [facility] with stafford Admission and Anticipated Discharge Date Admission Date: February 09, 2020 Subjective Patient seen and examined at bedside. No acute distress. Breathing on room air. denies acute pain. denies shortness of breath. breathing comfortably on room air. denies other systems on review of systems 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) Neck: normal visual inspection Respiratory: normal respiratory effort, lungs clear to auscultation normal respiratory effort Cardiovascular: Rate/Rhythm: + bradycardic Gastrointestinal (Abdomen): Inspection/Auscultation: normal bowel sounds Percussion/Palpation: abdomen soft Musculoskeletal: Head/Neck/Chest: normocephalic Neurologic: PERRL, EOMI, accommodation nl, no face palsy, no dysarthria awake Psychiatric: Orientation: alert and cooperative Genitourinary: no testicular masses, no penis abnormality (stafford) Results & Data Results & Data ([facility]) Vital Signs (Past 12 Hours) Vital Signs Temp Pulse Pulse Resp BP Pulse Ox 02/19/20 08:34 36.4 C L 57 L 18 172/86 H 96 02/18/20 23:18 36.9 C 76 16 155/73 H 94 (1) Sepsis Sepsis type: sepsis due to unspecified organism Sepsis acute organ dy sfunction status: with acute organ dysfunction Severe sepsis acute organ dysfunction type: encephalopathy Severe sepsis shock status: without septic shock Qualified Code(s): A41.9 - Sepsis, unspecified organism; R65.20 - Severe sepsis without septic shock; G93.40 - Encephalopathy, unspecified (2) Pneumonia Pneumonia type: due to unspecified organism Laterality: left Lung location: lower lobe of lung Qualified Code(s): J18.9 - Pneumonia, unspecified organism (3) UTI (urinary tract infection) Urinary tract infection type: acute cystitis Hematuria presence: with hematuria Qualified Code(s): N30.01 - Acute cystitis with hematuria (4) Acute renal failure Acute renal failure type: unspecified Qualified Code(s): N17.9 - Acute kidney failure, unspecified (5) Anemia Anemia type: unspecified type Qualified Code(s): D64.9 - Anemia, unspecified (6) Dementia Dementia type: vascular dementia Dementia behavioral disturbance: with behavioral disturbance Qualified Code(s): F01.51 - Vascular dementia with behavioral disturbance (7) Schizoaffective disorder Schizoaffective disorder type: unspecified Qualified Code(s): F25.9 - Schizoaffective disorder, unspecified (8) Dysphagia Dysphagia type: unspecified Qualified Code(s): R13.10 - Dysphagia, unspecified
--- NOTE | 2020-02-19 15:48 | Discharge Summary ---
Date of Service February 19, 2020 Admission HPI Per Admitting Provider This is a 79 y/o male with a history of prior CVA, vascular dementia, schizoaffective d/o, dysphagia s/p CVA, anemia, HTN, BPH w/ urinary retention and chronic Stafford, pulmonary nodule, and prior episode of sepsis in 2018 and in 2019, who was brought to the ED today via EMS from [facility] due to acute worsening of his mental status with agitation, combativeness as well as respiratory difficulties. History from the patient is unobtainable so the chart and records from the SNF were extensively reviewed. Additionally, I was able to speak with Cathy, the RN completion supervisor at [facility], although history is still quite limited. Staff at the facility report a gradual decline in patient's mental status since he was discharged from [facility] in July. However, over the past 2-3 days, he has acutely worsened with increased confusion and agitation as well as refusing to eat or drink anything. This morning, he was apparently acutely worse so EMS was called. He was combative at the SNF, hitting and kicking at the EMS providers and had to be "wrestled" onto the stretcher. In the ED, he was initially so agitated that they were unable to evaluate him so he was given Zyprexa for sedation with improvement. Per nursing, he continues to remain confused and irritable, although they have been able to evaluate the patient. During the work-up he was found to have pneumonia and likely a UTI. 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) Neck normal visual inspection Respiratory normal respiratory effort, lungs clear to auscultation normal respiratory effort Cardiovascular Rate/Rhythm: + bradycardic Gastrointestinal (Abdomen) Inspection/Auscultation: normal bowel sounds Percussion/Palpation: abdomen soft Musculoskeletal Head/Neck/Chest: normocephalic Neurologic PERRL, EOMI, accommodation nl, no face palsy, no dysarthria awake Psychiatric Orientation: alert and cooperative Genitourinary no testicular masses, no penis abnormality (stafford) Discharge Data Allergies Allergy/AdvReac Type Severity Reaction Status Date / Time olanzapine Allergy Mild "IT DOES Verified 02/09/20 12:53 NOT WORK" risperidone Allergy Unknown UNKNOWN Verified 02/09/20 12:53 lisinopril AdvReac Severe Verified 02/09/20 12:53 Influenza Virus Vaccines AdvReac PAIN AT Verified 02/09/20 12:53 INJECTION SITE Tricyclic Antidepressants Allergy Unknown Unknown Uncoded 02/09/20 12:53 Consultations 02/09/20 15:32 ED Decision to Admit Stat 02/11/20 18:27 Consult Palliative Care Routine 02/13/20 09:20 Consult Infectious Diseases Routine 02/13/20 17:46 Consult Urology Routine Ordered Studies 02/09/20 12:32 CT head/brain wo con Stat Hospital Course (1) Sepsis: -as per 02/09/2020 admission History and Physical " This is a 79 y/o male with a history of prior CVA, vascular dementia, schizoaffective d/o, dysphagia s/p CVA, anemia, HTN, BPH w/ urinary retention and chronic Stafford, pulmonary nodule, and prior episode of sepsis in 2018 and in 2019, who was brought to the ED today via EMS from [facility] due to acute worsening of his mental status with agitation, combativeness as well as respiratory difficulties. History from the patient is unobtainable so the chart and records from the SNF were extensively reviewed. Additionally, I was able to speak with Cathy, the RN completion supervisor at [facility], although history is still quite limited. Staff at the facility report a gradual decline in patient's mental status since he was discharged from [facility] in July. However, over the past 2-3 days, he has acutely worsened with increased confusion and agitation as well as refusing to eat or drink anything. This morning, he was apparently acutely worse so EMS was called. He was combative at the SNF, hitting and kicking at the EMS providers and had to be "wrestled" onto the stretcher. In the ED, he was initially so agitated that they were unable to evaluate him so he was given Zyprexa for sedation with improvement. Per nursing, he continues to remain confused and irritable, although they have been able to evaluate the patient. During the work-up he was found to have pneumonia and likely a UTI." -as per previous note on 02/13/[address] Leger that patient's sepsis "Likely related to pneumonia. Possible bacteremia, and UTI. Currently compensated. Clinical improvement with abx but switch Rocephin to cefepime based on urine culture results. Remains somewhat hypothermic so use tracey hugger as needed to keep temp in the normal range. Cont to check rectal temp which appears to be the most accurate." -02/14/2020: temperature stable at this time, continue antibiotics -02/15/2020 Patient seen and examined while he was feeding himself the lunch. Patient awake and verbal but sometimes mumbling speech which is similar to previous hospital encounters with the patient on previous hospital admissions. telemetry continues to be without acute events. Patient denies acute pain or other symptoms.The plans will be to transfer patient off telemetry on 02/15/2020 to [facility]. Discussed with palliative care team and employment case manager that the [facility] Infectious Disease franchise consultant that 10 day total course of IV antibiotics will be appropriate to treat the urinary tract infection. (2) Pneumonia: -off initial antibiotics of Vancomycin and Zosyn -continued IV Cefepime as per Infectious disease recommendations on 02/14/2020 with stopage of the IV azithromycin as per the ID recommendations (3) UTI (urinary tract infection): -as per previous hospitalist Dr. Leger 02/13/2020 note "Repeat urine culture reveals MDR Morganella and MDR pseudomonas. Switched Rocephin to Cefepime to cover these pathogens. Removed stafford and plan for tOV-replace stafford if he fails. There is some resistance on this culture. The patient has this in addition to a pneumonia and an indwelling Stafford catheter and is physically and mentally declined as a long-term patient. He has a h/o MRSA in the past. No current sputum sample could be collected 2/2 combativeness early during admission. Was on Vanc/Zosyn initially this admission which was switched to Reynold ephin/Azithro to avoid renal insufficiency from this combination. Now Cefepime/Azithro as above with the new pathogens" -patient's dose of IV Cefepime given on 02/19/2020 and at this time should have complete the course of IV antibiotics (4) Urinary retention due to benign prostatic hyperplasia: -Cont finasteride and flomax -02/14/2020: Patient in deep sleep on the bed. Snoring. No acute events on telemetry. breathing on room air. As per nurse, urology was able to take off the stafford today on 02/14/2020. Patient to be monitored in case any future urinary retention without the stafford -02/16/2020: a new stafford had to be placed because of urinary retention of 700 ml, continue stafford even after hospitalization because of recurrent urine retention (5) Acute renal failure: -hypernatremia is resolved -Avoid NSAIDs, contrast and other nephrotoxic agents and renally dose meds as appropriate. -renal function overall has improved on this hospital stay but did have again creatinine 1.46 on 02/16/2020 likely from recurrent urinary retention that required stafford placement - he did get some IV fluids -creatinine 1.2 on 02/18/2020, questionable whether serum potassium labs are truly elevated as 4.7 vs hemolyzed, additional IV fluids ordered for 02/18/2020 -creatinine 1.25 on 02/19/2020 labs (6) Anemia: -around baseline, no active bleeding noted and no need for transfusion at this time. Likely multifactorial including chronic disease. (7) Dementia: -Per RN at SNF, pt's mental has been gradually worsening over past several months -currently at usual mental baseline (8) Schizoaffective disorder: - Continue outpatient meds (9) Dysphagia: -Related to prior CVA - pt is on a pureed diet with thin liquids, uses straws, crushed meds at baseline -eating the pureed diet currently while in hospital (10) Severe protein-calorie malnutrition: -Unrestricted diet. Cont thiamine. Director Of Epidemiology consult. Speech following. He has an emaciated look on exam indicative of a chronic weight loss and malnutrition situation. He has lost a documented 40 lbs since July 2019. This was discussed with guardian who with Office of Aging and palliative care team in regards to future code status and goals of care as per previous hospitalist Dr. Leger's notes but there does not appear to be any acute changes to current FULL CODE status to date (11) DVT prophylaxis: heparin subcutaneous given while inpatient Disposition: completed IV antibiotics on 02/19/2020, COVID screening test negative on 02/19/2020 AM discharge to [facility] with stafford. Patient should follow p with [facility] [address] [place] [address] , [place] [address]. . Because patient's stafford was changed on this admission, patient should have stafford care re-evaluated by urology group within 1 month of hospital discharge patient should follow up with primary care doctor at [facility] Dr. Boris Chambers or other physicians who see patients at [facility] Total Time Total Time Spent Total Time Spent (In Minutes): 40 minutes Total Time Includes: Examination of the Patient, Discharge Planning, Medication Reconciliation and Communication With Other Providers Discharge Plan Discharge Items Patient Disposition: Transfer Senior Living Fac Reason For Visit: SEPSIS,ENCEPHALOPATHY,UTI Discharge Diagnosis: Sepsis Pneumonia UTI (urinary tract infection) in a patient with chronic stafford Urinary retention Severe protein-calorie malnutrition Condition on Discharge: Fair Activity: Resume your previous activity Non-emergency contact: Primary Care Provider Call non-emergency contact if: you have any medication questions Follow-up/Referrals: [facility] [Primary Care Provider] - Diet: Regular Diet Texture: Pureed (blended smooth) Addtl Attending Provider Instructions: completed IV antibiotics on 02/19/2020, COVID screening test negative on 02/19/2020 AM discharge to [facility] with stafford. Patient should follow p with [facility] [address] [place] [address] Dr, [place] [address]. [phone]. Because patient's stafford was changed on this admission, patient should have stafford care re-evaluated by urology group within 1 month of hospital discharge patient should follow up with primary care doctor at [facility] Dr. Boris Chambers or other physicians who see patients at [facility] Pending Studies at Discharge: No Stand-Alone Forms: My [facility] Skilled Items Patient informed of condition?: Yes DNR: No Discharge Level of Care: Other Communicable Disease: No Discharge Prognosis: Stable Lines: None Urinary Catheter: Yes Medications and DC Order Prescriptions: New thiamine HCl (vitamin B1) [Vitamin B-1] 100 mg Tablet 100 mg PO QAM 30 Days Qty: 30 RF: 0 Continued tamsulosin 0.4 mg Capsule 0.4 mg PO QAM@0800 RF: 0 acetaminophen [Tylenol] 325 mg Tablet 650 mg PO Q4 MDD 3G PRN (Reason: Fever Or Pain) RF: 0 perphenazine 2 mg Tablet 0 mg PO UD RF: 0 fluphenazine decanoate 25 mg/mL Solution 25 mg IM MONTHLY RF: 0 mirtazapine 30 mg Tablet 30 mg PO HS@2000 RF: 0 benztropine 1 mg Tablet 1 mg PO BID RF: 0 docusate sodium 100 mg Tablet 100 mg PO BID RF: 0 Artificial Tears (PF) Dropperette 1 drp OPB BID RF: 0 memantine 10 mg Tablet 10 mg PO BID RF: 0 fluphenazine HCl 2.5 mg tablet 2.5 mg PO Q6H PRN (Reason: Mood Stabilizer) RF: 0 finasteride 5 mg Tablet 5 mg PO QAM@0800 RF: 0 bisacodyl [Dulcolax (bisacodyl)] 10 mg Suppository 10 mg MI DAILY PRN (Reason: Constipation) RF: 0 Saccharomyces boulardii [Florastor] 250 mg Capsule 250 mg PO BID RF: 0 multivitamin with minerals Tablet 1 tab PO DAILY RF: 0 lactase [Lactaid] 3,000 unit Tablet 3,000 unit PO TIDM RF: 0 melatonin 5 mg Tablet 0 mg PO UD PRN (Reason: Sleep) RF: 0 Discharge Orders: Discharge Order (Routine); Ordered 02/19/20 Ordered By: Rolan Jones Admission Data Admit Date/Time: 02/09/20 17:08 Attending Provider: Rolan Jones Admit Provider: Stefano Duke Primary Care Provider: [facility] Other Providers: Stefano Duke ; Purvi Tirado ; Dominick Soto ; Hudson Hurtado ; Anibal Burdick I. ; Michael Silverman II ; Yamini Fallon ; Demetris Lyons ; Shadi Crenshaw
== END 2020-02-19 17:17 | DRG 871 ==
LOC: ED 11:24 → 2S 17:08 → SUATTDRO 17:08 → 2S 18:21 → 3W 02-15 12:38

== ENCOUNTER 2020-03-21 10:02 | Inpatient (IN) ==
[2020-03-21] MEDS ORDERED: SODIUM CHLORIDE 0.9% 1000ML 1,000 ML IV SCH (10:45)
[2020-03-21 10:56] LABS: Appearance Urine Turbid (Clear); Bacteria Urine Automated 4+ (Negative); Bilirubin Urine Negative (Negative); Blood Urine 2+ (Negative); Color Urine Yellow; Glucose Urine UA Negative (Negative); Ketones Urine Negative (Negative); Leukocyte Esterase Urine 3+ (Negative); Nitrite Urine Positive (Negative); Specific Gravity Urine 1.021 (1.000-1.030); Urobilinogen Urine Negative (Negative); WBC Urine Automated >30 /hpf (0-5); pH Urine 7.5 (4.5-7.5)
--- NOTE | 2020-03-21 11:17 | XRay Report ---
XR chest 1V portable CLINICAL HISTORY: Dyspnea COMPARISON STUDY: 02/09/2020 FINDINGS: The heart is mildly enlarged. There are progressive bilateral pulmonary airspace opacities most pronounced within the left lower lobe. A multifocal pneumonia is suspected. Underlying emphysema is evident. There is mild central vascular prominence without evidence of overt edema. Trace pleural effusions are also suspected.[ IMPRESSION: Progressive bilateral pulmonary airspace opacities, likely representing a multifocal pneu monia. Clinical and radiographic follow-up is recommended. ACT 112: Negative or not required by law. Electronically signed by: Atif Campuzano M.D. 03/21/2020 11:16 AM
[2020-03-21 11:24] LABS: Protein Urine 1+ (Negative)
[2020-03-21 11:37] LABS: Basophils # (auto) 0.03 K/uL (0-0.2); Basophils % (auto) 0.2 %; Eosinophils # (auto) 0.05 K/uL (0-0.5); Eosinophils % (auto) 0.4 %; Hematocrit (blood only) 28.1 % (42-52); Hemoglobin 9.3 g/dL (14.0-18.0); Immature Granulocytes # (auto) 0.03 K/uL (0.00-0.02); Immature Granulocytes % (auto) 0.2 %; Lymphocytes # (auto) 0.61 K/uL (1.2-3.4); Lymphocytes % (auto) 4.8 %; Mean Corpuscular Hgb Conc 33.1 g/dL (32-36); Mean Corpuscular Volume 90.6 fL (80-100); Mean Platelet Volume 10.4 fL (7.4-10.4); Monocytes # (auto) 0.52 K/uL (0.11-0.59); Monocytes % (auto) 4.1 %; Neutrophils # (auto) 11.55 K/uL (1.4-6.5); Neutrophils % (auto) 90.3 %; Platelet Count 117 K/uL (130-400); RDW Coefficient of Variation 18.3 % (11.5-14.5); RDW Standard Deviation 60.9 fL (36.4-46.3); White Blood Count 12.79 K/uL (4.8-10.8)
[2020-03-21 11:44] LABS: Sulfosalicylic Acid Urine Positive (Negative)
[2020-03-21 11:46] LABS: Amorphous Sediment Urine Present (None Prsent); Mucus Urine Present (None Prsent); Triple Phosphate Crystal Urine Present (None Prsent)
--- NOTE | 2020-03-21 12:02 | CT Scan Report ---
HEAD CT NONCONTRAST CT DOSE: 1534.13 mGy.cm HISTORY: R facial bruise TECHNIQUE: Multiaxial CT images of the head were performed without the use of intravenous contrast. A utomated exposure control was utilized for this study. A dose lowering technique was utilized adheri ng to the principles of ALARA. Comparison: Head CT 02/09/2020. Findings: The paranasal sinuses and mastoid air cells are clear. The calvarium and skull base are int act. There is no mass, hematoma, midline shift, acute infarct. White matter hypodensity is nonspecifi c but suggestive of microvascular ischemic change. The ventricles and sulci demonstrate mild age-rela markos involutional changes. Motion artifact. Impression: Motion artifact. No definite acute intracranial abnormality. ACT 112: Negative or not required by law. Electronically signed by: Yonathan Coppola M.D. 03/21/2020 12:00 PM
[2020-03-21 12:05] LABS: Alanine Aminotransferase 24 U/L (12-78); Albumin Level 1.9 gm/dl (3.4-5.0); Aspartate Aminotransferase 23 U/L (15-37); BUN Creatinine Ratio 31.8 (10-20); Blood Urea Nitrogen 35 mg/dl (7-18); Calcium 8.7 mg/dl (8.5-10.1); Carbon Dioxide 30 mmol/L (21-32); Chloride 107 mmol/L (98-107); Creatinine Clr Calc Pharmacy 43.8 ml/min; Est GFR (African American) 74.4; Est GFR (Non-African American) 64.2; Glucose 91 mg/dl (70-99); Potassium 3.9 mmol/L (3.5-5.1); Sodium 141 mmol/L (136-145)
[2020-03-21 12:10] LABS: Albumin Globulin Ratio 0.5 (0.9-2); Alkaline Phosphatase 86 U/L (45-117); Bilirubin,Total 0.3 mg/dl (0.2-1); Globulin 4.1 gm/dl (2.5-4.0); NT Pro B Type Natriuretic Pept 3104 pg/ml (0-1800); Troponin I < 0.015 ng/ml (0-0.045)
[2020-03-21 12:13] LABS: INR 1.2 (0.9-1.1); Partial Thromboplastin Ratio 1.4
[2020-03-21] MEDS ORDERED: OPTIRAY 320 125ml IV ONE (13:04)
--- NOTE | 2020-03-21 13:14 | CT Scan Report ---
CT ANGIOGRAM OF THE CHEST CLINICAL HISTORY: Dyspnea. COMPARISON STUDY: Chest x-ray dated 03/21/2020. Chest CT scans dated 06/27/2019 and 07/24/2014. TECHNIQUE: Following the IV administration of 120 cc of Optiray 320, CT angiogram of the chest was pe rformed from the upper abdomen to the thoracic inlet utilizing the pulmonary embolus protocol. Images are reviewed in the axial, sagittal, and coronal planes. 3-D MIPS images are created and assessed. I V contrast was administered without complication. A dose lowering technique was utilized adhering to the principles of ALARA. Examination is compromised by motion artifact. CT DOSE: 244.91 mGy.cm FINDINGS: Thyroid: Imaged portions of the thyroid gland are normal in size and heterogeneous in attenuation. Thoracic aorta: There is atherosclerotic calcification of the thoracic aorta. There is mild ectasia o f the ascending thoracic aorta which measures up to 3.8 cm diameter. The remainder of the thoracic ao rta Is normal in caliber, and the arch demonstrates standard 3-vessel anatomy. The thoracic aorta is not well opacified. Pulmonary vasculature: The pulmonary trunk is normal in caliber. There are no filling defects identif ied in main, lobar, or segmental pulmonary branches to suggest pulmonary embolus. Evaluation of the p eripheral branches is degraded by motion artifact and suboptimal contrast opacification. Heart: The heart is markedly enlarged and without pericardial effusion. The coronary arteries are den sely calcified. Lungs and pleural spaces: Emphysema is change is noted. Debris fills the right lower lobe airways. Mi nimal debris is seen within the mainstem bronchi. The trachea is clear. There is dense airspace conso lidation throughout the left lower lobe. Patchy airspace consolidation is seen throughout the right m iddle and lower lobes as well as the left upper lobe/lingula. Minimal consolidation is seen in the ri ght upper lobe. There are small pleural effusions. Mediastinum: There is no mediastinal lymphadenopathy. Dayan: Grossly clear. Axillae: There is no axillary lymphadenopathy. Upper abdomen: Partially visualized upper abdominal viscera is grossly unremarkable. Skeletal structures: The skeletal structures are osteopenic. Degenerative change and hyperkyphosis is noted in the thoracic spine. No lytic or blastic bony lesions are seen. There are healed right-sided rib fractures. IMPRESSION: 1. There is no evidence of pulmonary embolus in the main, lobar, or segmental pulmonary arteries. 2. Cardiomegaly and emphysema. 3. There is dense airspace consolidation throughout the left lower lobe with milder patchy airspace c onsolidation seen throughout both lungs. The appearance is typical for pneumonia/aspiration pneumonit is. Clinical correlation will be required and radiographic follow-up to resolution is recommended. 4. Small pleural effusions. 5. Additional findings as above. ACT 112: Negative or not required by law. Electronically signed by: Jason Camacho M.D. 03/21/2020 1:13 PM
[2020-03-21] MEDS ORDERED: PIPERACILLIN/TAZOBACTAM 4.5 GM/120 ML BAG IV STA (13:21)
--- NOTE | 2020-03-21 14:25 | History & Physical Report ---
Date of Service March 21, 2020 Assessment & Plan (1) Multifocal pneumonia: Episode of transient hypoxia at [facility] this morning with imaging c/w multifocal pnuemonia - suspect pt had another aspiration event this AM - Currently maintaining sats so will defer O2 - can re-evaluate if clinical p icture changes - Broad-spectrum coverage with Zosyn - NPO due to concern for aspiration - Clinically appears dry with elevated BUN on labs - will give gentle IVF and monitor - Check sputum culture if able (2) Aspiration into lower respiratory tract: - NPO as above - Aspiration precautions - Speech therapy evaluation - previously recommended pureed diet with aspiration precautions (3) Urinary tract infection associated with catheterization of urinary tract: Abnormal UA in ED in setting of indwelling Guy - Culture pending - Cover with empiric Zosyn pending culture results (4) Metabolic encephalopathy: Suspect related to above infections. Unclear what his baseline mental status is but is apparently more confused than usual per facility (5) Severe protein-calorie malnutrition: Currently NPO due to concern for aspiration - Eventual nutrition consult - the potential of enteral nutrition has been discussed in the past although this would not eliminate the risk of aspiration. (6) CKD (chronic kidney disease), stage III: Creatinine appears to be at baseline at present although BUN elevated, suspect from mild dehdyration - Follow labs (7) BPH loc w urin obs/LUTS: Pt has indwelling Guy catheter - last changed by urology one week ago. Was to be changed in the ED today (8) Schizoaffective disorder: - Continue outpatient med regimen once taking po (9) HTN (hypertension): BP at present is stable - holding oral meds for now. Continue to monitor. (10) Dementia: - Continue outpatient regimen - Will need to establish goals of care in view of progressive decline and increasing frequency of admission. Pt currently has a guardian who is his decision-maker. Will consult palliative care to assist in this process. Pt to be a full code for now. Pt seen and reviewed with collaborating physician, Dr. Leger. Plan of care discussed and as outlined above. Little Rees PA-C History of Present Illness Chief Complaint: hypoxia Primary Care Provider: [facility] This is a 79 y/o male with a history of prior CVA, vascular dementia, schiz oaffective d/o, dysphagia s/p CVA, anemia, HTN, BPH w/ urinary retention and chronic Guy, pulmonary nodule, and prior episode of sepsis in 2019 and in 2019 x2, who was brought to the ED today via EMS from [facility] due to hypoxia with O2 sats due to 73-74% on RA. History from the patient is unobtainable so history obtained from review of records and report from ED physician. This morning apparently pt became more short of breath and was noted to be hypoxic so EMS was called. He did have COVID testing on Wednesday of this week at [facility] that was negative. Of note, pt was recently admitted to this facility 02/08- 02/19/20 with sepsis due to pneumonia, potentially due to aspiration, and possible UTI. Pt does have a chronic Guy. Speech evaluation during that admission recommended pureed diet with aspiration precautions. Palliative care did see patient as well that admission. Pt currently has a guardian who is his decision maker. Allergies Allergy/AdvReac Type Severity Reaction Status Date / Time olanzapine Allergy Mild "IT DOES Verified 03/14/20 13:33 NOT WORK" risperidone Allergy Unknown UNKNOWN Verified 03/14/20 13:33 lisinopril AdvReac Severe Verified 03/14/20 13:33 Influenza Virus Vaccines AdvReac PAIN AT Verified 03/14/20 13:33 INJECTION SITE Tricyclic Antidepressants Allergy Unknown Unknown Uncoded 03/14/20 13:33 Home Medications Medication Instructions Recorded Confirmed Type Artificial Tears (PF) 1 drp OPB BID 11/22/18 03/21/20 History benztropine 1 mg PO BID 11/22/18 03/21/20 History docusate sodium 100 mg PO BID 11/22/18 03/21/20 History fluphenazine decanoate 25 mg IM MONTHLY 11/22/18 03/21/20 History memantine 10 mg PO BID 11/22/18 03/21/20 History mirtazapine 30 mg PO HS@2000 11/22/18 03/21/20 History acetaminophen [Tylenol] 650 mg PO Q4 PRN MDD 3G 03/15/19 03/21/20 History tamsulosin 0.4 mg PO QAM@0800 03/15/19 03/21/20 History finasteride 5 mg PO QAM@0800 05/07/19 03/21/20 History fluphenazine HCl 2.5 mg PO Q6H PRN 05/07/19 03/21/20 History perphenazine 2 mg PO UD 06/05/19 03/21/20 History Saccharomyces boulardii [Florastor] 250 mg PO BID 02/09/20 03/21/20 History bisacodyl [Dulcolax (bisacodyl)] 10 mg [place] DAILY PRN 02/09/20 03/21/20 History lactase [Lactaid] 3,000 unit PO TIDM 02/09/20 03/21/20 History melatonin 0 mg PO UD PRN 02/09/20 03/21/20 History multivitamin with minerals 1 tab PO DAILY 02/09/20 03/21/20 History Past Med/Surg History Medical History Anemia Anxiety BPH loc w urin obs/LUTS CKD (chronic kidney disease), stage III Dementia Dysphagia following CVA H/O: CVA (cerebrovascular accident) Hemangioma of lip HTN (hypertension) Indwelling Guy catheter present Muscle weakness (generalized) Palliative care encounter Pulmonary nodule Recurrent aspiration pneumonia Schizoaffective disorder Sepsis due to Pseudomonas March 2019 Urinary retention Urinary retention due to benign prostatic hyperplasia Surgical History Hx of cataract surgery S/P tonsillectomy Family History Other Hypertension Social History Smoking Status: Unknown if ever smoked Years Smoked: 50; Second Hand Exposure: No; Hx Alcohol Use: No Hx Substance Use: No Preferred Language: Thai Communication Ability: Impaired Communication Ability Comment: Jose following basic commands. 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 Review of Systems Review of Systems: Unobtainable due to cognitive status Physical Exam Constitutional: + cachectic; no acute distress ENMT: Mouth: + lip abnormality (right upper lip with vascular abnormality) and + dry oral mucous membranes Neck: trachea midline Respiratory: no respiratory distress and no labored breathing coarse BS with expiratory rhonchi LLL Cardiovascular: Rate/Rhythm: regular rate and regular rhythm Vessels: dorsalis pedis pulses present Extremities: no pedal edema Gastrointestinal (Abdomen): Inspection/Auscultation: normal bowel sounds and + scaphoid Percussion/Palpation: abdomen soft; abdomen nontender Musculoskeletal: Head/Neck/Chest: neck supple Extremities: no cyanosis Skin: cool to touch, dry Neurologic: + confused Results & Data Results & Data (MN) Vital Signs (Past 12 Hours) Vital Signs Pulse Resp BP Pulse Ox 03/21/20 10:35 97 03/21/20 10:34 97 03/21/20 10:20 54 L 15 101/57 L 97 Laboratory Results Laboratory Results - last 24 hr 03/21/20 03/21/20 03/21/20 10:11 10:30 10:30 WBC RBC Hgb Hct MCV MCH MCHC RDW Std Deviation RDW Coeff of So Plt Count MPV Immature Gran % (Auto) Neut % (Auto) Lymph % (Auto) [place] % (Auto) Eos % (Auto) Baso % (Auto) Neut # (Auto) Lymph # (Auto) [place] # (Auto) Eos # (Auto) Baso # (Auto) Immature Gran # (Auto) PT INR APTT PTT Ratio Sodium Potassium Chloride Carbon Dioxide Anion Gap BUN Creatinine Est Cr Clr Drug Dosing Est GFR ( Amer) Est GFR (Non-Af Amer) BUN/Creatinine Ratio Glucose POC Glucose 202 H Calcium Magnesium Total Bilirubin AST ALT Alkaline Phosphatase Troponin I NT-Pro-B Natriuret Pep Total Protein Albumin Globulin Albumin/Globulin Ratio Urine Color Yellow Urine Appearance Turbid A Urine pH 7.5 Ur Specific [place] 1.021 Urine Protein 1+ H Urine Glucose (UA) Negative Urine Ketones Negative Urine Blood 2+ H Urine Nitrite Positive A Urine Bilirubin Negative Urine Urobilinogen Negative Ur Leukocyte Esterase 3+ H Urine WBC (Auto) >30 H Urine RBC (Auto) 10-30 H U Hyaline Cast (Auto) 1-5 U Epithel Cells (Auto) 10-20 H Urine Bacteria (Auto) 4+ H Triple Phos Crystals Present A Amorphous Sediment Present A Urine Mucus Present A Urine Yeast Not Reportable COVID-19 Eval Order Covid19 IDNow [email or web address] SARS-CoV-2, RNA, NAAT 03/21/20 03/21/20 03/21/20 10:30 11:27 11:27 WBC 12.79 H RBC 3.10 L Hgb 9.3 L Hct 28.1 L MCV 90.6 MCH 30.0 MCHC 33.1 RDW Std Deviation 60.9 H RDW Coeff of So 18.3 H Plt Count 117 L MPV 10.4 Immature Gran % (Auto) 0.2 Neut % (Auto) 90.3 Lymph % (Auto) 4.8 [place] % (Auto) 4.1 Eos % (Auto) 0.4 Baso % (Auto) 0.2 Neut # (Auto) 11.55 H Lymph # (Auto) 0.61 L [place] # (Auto) 0.52 Eos # (Auto) 0.05 Baso # (Auto) 0.03 Immature Gran # (Auto) 0.03 H PT 13.0 H INR 1.2 H APTT 39.0 H PTT Ratio 1.4 Sodium Potassium Chloride Carbon Dioxide Anion Gap BUN Creatinine Est Cr Clr Drug Dosing Est GFR ( Amer) Est GFR (Non-Af Amer) BUN/Creatinine Ratio Glucose POC Glucose Calcium Magnesium Total Bilirubin AST ALT Alkaline Phosphatase Troponin I NT-Pro-B Natriuret Pep Total Protein Albumin Globulin Albumin/Globulin Ratio Urine Color Urine Appearance Urine pH Ur Specific [place] Urine Protein Urine Glucose (UA) Urine Ketones Urine Blood Urine Nitrite Urine Bilirubin Urine Urobilinogen Ur Leukocyte Esterase Urine WBC (Auto) Urine RBC (Auto) U Hyaline Cast (Auto) U Epithel Cells (Auto) Urine Bacteria (Auto) Triple Phos Crystals Amorphous Sediment Urine Mucus Urine Yeast COVID-19 Eval Order SARS-CoV-2, RNA, NAAT NEGATIVE 03/21/20 11:27 WBC RBC Hgb Hct MCV MCH MCHC RDW Std Deviation RDW Coeff of So Plt Count MPV Immature Gran % (Auto) Neut % (Auto) Lymph % (Auto) [place] % (Auto) Eos % (Auto) Baso % (Auto) Neut # (Auto) Lymph # (Auto) [place] # (Auto) Eos # (Auto) Baso # (Auto) Immature Gran # (Auto) PT INR APTT PTT Ratio Sodium 141 Potassium 3.9 Chloride 107 Carbon Dioxide 30 Anion Gap 4.0 BUN 35 H Creatinine 1.09 Est Cr Clr Drug Dosing 43.8 Est GFR ( Amer) 74.4 Est GFR (Non-Af Amer) 64.2 BUN/Creatinine Ratio 31.8 H Glucose 91 POC Glucose Calcium 8.7 Magnesium 2.0 Total Bilirubin 0.3 AST 23 ALT 24 Alkaline Phosphatase 86 Troponin I < 0.015 NT-Pro-B Natriuret Pep 3104 H Total Protein 6.0 L Albumin 1.9 L Globulin 4.1 H Albumin/Globulin Ratio 0.5 L Urine Color Urine Appearance Urine pH Ur Specific [place] Urine Protein Urine Glucose (UA) Urine Ketones Urine Blood Urine Nitrite Urine Bilirubin Urine Urobilinogen Ur Leukocyte Esterase Urine WBC (Auto) Urine RBC (Auto) U Hyaline Cast (Auto) U Epithel Cells (Auto) Urine Bacteria (Auto) Triple Phos Crystals Amorphous Sediment Urine Mucus Urine Yeast COVID-19 Eval Order SARS-CoV-2, RNA, NAAT Diagnostic Findings Chest X-ray 03/21/20 - IMPRESSION: Progressive bilateral pulmonary airspace opacities, likely representing a multifocal pneumonia. Clinical and radiographic follow-up is recommended. CT Head 03/21/20 - Impression: Motion artifact. No definite acute intracranial abnormality. CTA Chest 03/21/20 - IMPRESSION: 1. There is no evidence of pulmonary embolus in the main, lobar, or segmental pulmonary arteries. 2. Cardiomegaly and emphysema. 3. There is dense airspace consolidation throughout the left lower lobe with milder patchy airspace consolidation seen throughout both lungs. The appearance is typical for pneumonia/aspiration pneumonitis. Clinical correlation will be required and radiographic follow-up to resolution is recommended. 4. Small pleural effusions. 5. Additional findings as above. Medications Administered Sodium Chloride (Nss 1000ml) 1,000 mls @ 80 mls/hr IV .[id number] SHERIE Stop: 03/21/20 19:43 Last Admin: 03/21/20 14:16 Dose: 150 mls/hr Documented by: [id number] Piperacillin Sod/Tazobactam Sod (Zosyn) 4.5 gm in 120 mls @ 240 mls/hr IV NOW STA Stop: 03/21/20 13:50 Last Infusion: 03/21/20 15:25 Dose: 0 mls/hr Documented by: [id number] Admin: 03/21/20 14:41 Dose: 240 mls/hr Documented by: [id number] Ioversol (Optiray 320 125ml) 120 ml IV ONCE ONE Stop: 03/21/20 13:05 Last Admin: 03/21/20 13:04 Dose: 120 ml Documented by: [id number] Supervising Physician Co-Signing Physician Notes I have seen and examined the patient and have discussed the case with the provider above. I agree with the assessment and plan as stated. The patient is a 79 yo man with recent hospitalization and severe cachexia who presents today after being found down in his room at [facility] significantly hypoxic. Workup in the ER reveals a multifocal pneumonia. The patient is not septic but is on this spectrum with mild tachypnea and leukocytosis. Broad spectrum Zosyn was started to cover gram negatives possibly secondary to aspiration events, for which he is high risk. On my exam of him while in the ER he was slightly combative with staff at times, then became hypoxic with respiratory distress and developed some myoclonic jerking of his arms and legs, all resolving with oxygen supplementation. He is unable to converse or otherwise communicate with wi 2/2 acute metabolic encephalopathy 2/2 infection and hypoxia. RR by my cough was 22 bpm and he appeared comfortable when settled down. ROS was limited. Physical exam was limited as patient was unable to cooperate and was holding breath frequently. The patient was severely cachectic and with no gross focal deficits, moves all extremities easily and knee reflexes 2+ bilaterally. Pupils were round and equal bilaterally, tongue and mucous membranes were dry and patient was mouth breathing. Lungs with some airflow heard in bilateral lung raymond, no wheezes, crackles or rales heard. Regular heart rhythm with S1/2 heard and no murmurs, gallops or rubs were heard. PLAN: cont Zosyn pending cultures and clinical improvement. Monitor procalcitonin. Was found down with COLT, cont IVF for now. Check CK to rule out non-traumatic rhabdo. Support with oxygen as needed. One to one obs as needed. Nutrition consult. Speech consult. Palliative consult to assist with completion of POLST regarding code status change to DNR/DNI in current state with OOA through guardian program. Admitted to PCU. DO Arsen (1) Urinary tract infection associated with catheterization of urinary tract Encounter type: initial encounter Indwelling urinary catheter type: indwelling urethral catheter Qualified Code(s): T83.511A - Infection and inflammatory reaction due to indwelling urethral catheter, initial encounter; N39.0 - Urinary tract infection, site not specified (2) Aspiration into lower respiratory tract Encounter type: initial encounter Qualified Code(s): T17.800A - Unspecified foreign body in other parts of respiratory tract causing asphyxiation, initial encounter (3) CKD (chronic kidney disease), stage III Chronic kidney disease stage 3 subtype: unspecified whether 3a or 3b Qualified Code(s): N18.30 - Chronic kidney disease, stage 3 unspecified (4) Dementia Dementia behavioral disturbance: with behavioral disturbance Dementia type: vascular dementia Qualified Code(s): F01.51 - Vascular dementia with behavioral disturbance (5) Schizoaffective disorder Schizoaffective disorder type: unspecified Qualified Code(s): F25.9 - Schizoaffective disorder, unspecified (6) HTN (hypertension) Hypertension type: essential hypertension Qualified Code(s): I10 - Essential (primary) hypertension
--- NOTE | 2020-03-21 14:31 | Emergency Department Note ---
History of Present Illness General Chief complaint: Shortness of Breath/Dyspnea Source: RN notes reviewed and old records reviewed Mode of arrival: EMS Limitations: altered mental status and clinical acuity History of Present Illness Provider complaint: Shortness of breath, low oxygen saturations This patient is a 79-year-old male who presents to the emergency department from the [facility] with complaints of low oxygen saturations and difficulty breathing earlier today. Patient had a negative Covid swab 4 days ago. There is no reported vomiting or diarrhea. The patient is unable to give a history. He has minimally responsive but is cooperative at this time. Patient is currently currently oxygenating on room air. Home Medications Medication Instructions Recorded Confirmed Type Artificial Tears (PF) 1 drp OPB BID 11/22/18 03/21/20 History benztropine 1 mg PO BID 11/22/18 03/21/20 History docusate sodium 100 mg PO BID 11/22/18 03/21/20 History fluphenazine decanoate 25 mg IM MONTHLY 11/22/18 03/21/20 History memantine 10 mg PO BID 11/22/18 03/21/20 History mirtazapine 30 mg PO HS@2000 11/22/18 03/21/20 History acetaminophen [Tylenol] 650 mg PO Q4 PRN MDD 3G 03/15/19 03/21/20 History tamsulosin 0.4 mg PO QAM@0800 03/15/19 03/21/20 History finasteride 5 mg PO QAM@0800 05/07/19 03/21/20 History fluphenazine HCl 2.5 mg PO Q6H PRN 05/07/19 03/21/20 History perphenazine 2 mg PO UD 06/05/19 03/21/20 History Saccharomyces boulardii [Florastor] 250 mg PO BID 02/09/20 03/21/20 History bisacodyl [Dulcolax (bisacodyl)] 10 mg AL DAILY PRN 02/09/20 03/21/20 History lactase [Lactaid] 3,000 unit PO TIDM 02/09/20 03/21/20 History melatonin 0 mg PO UD PRN 02/09/20 03/21/20 History multivitamin with minerals 1 tab PO DAILY 02/09/20 03/21/20 History Allergies Allergy/AdvReac Type Severity Reaction Status Date / Time olanzapine Allergy Mild "IT DOES Verified 03/14/20 13:33 NOT WORK" risperidone Allergy Unknown UNKNOWN Verified 03/14/20 13:33 lisinopril AdvReac Severe Verified 03/14/20 13:33 Influenza Virus Vaccines AdvReac PAIN AT Verified 03/14/20 13:33 INJECTION SITE Tricyclic Antidepressants Allergy Unknown Unknown Uncoded 03/14/20 13:33 Past Med/Surg History Medical History Anemia Anxiety BPH loc w urin obs/LUTS CKD (chronic kidney disease), stage III Dementia Dysphagia following CVA H/O: CVA (cerebrovascular accident) Hemangioma of lip HTN (hypertension) Indwelling Guy catheter present Muscle weakness (generalized) Palliative care encounter Pulmonary nodule Recurrent aspiration pneumonia Schizoaffective disorder Sepsis due to Pseudomonas March 2019 Urinary retention Urinary retention due to benign prostatic hyperplasia Surgical History Hx of cataract surgery S/P tonsillectomy Family History Other Hypertension Social History Smoking Status: Unknown if ever smoked Years Smoked: 50; Second Hand Exposure: No; Hx Alcohol Use: No Hx Substance Use: No Preferred Language: Cuban Communication Ability: Unable Communication Ability Comment: Jose following basic commands. 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 Review of Systems See HPI for pertinent positives & negatives. and A total of 10 systems reviewed and were otherwise negative Physical Exam Vital Signs Vital Signs - 24 hr 03/21/20 10:20 03/21/20 10:34 03/21/20 10:35 Pulse Rate 54 L Pulse Rhythm Regular Pulse Strength Normal Respiratory Rate 15 Respiratory Effort / Characteristics Non-Labored Spontaneous Respiratory Depth Normal Respiratory Pattern Regular Blood Pressure 101/57 L Blood Pressure Mean 71 Pulse Oximetry 97 97 97 Oxygen Delivery Method Room Air Room Air Room Air Sepsis Recent Fever Within 48 Hours No Sepsis New/Unexplained Change in Mental Status No Sepsis Action Taken by Nursing No Action Required Vital signs reviewed. General: Chronically ill-appearing 79 yo male, in no significant distress. HEENT: No scleral icterus, PERRLA, neck supple. Hemangioma noted to the right upper lip, dry mucous membranes Cardiovascular: Bradycardic and regular distant heart tones, no extra sounds. Pulmonary: Coarse breath sounds bilaterally, normal work of breathing. Stable oxygenation on room air Abdomen: Soft, emaciated, nontender, nondistended, positive bowel sounds. : Guy catheter in place: Musculoskeletal: Atraumatic, no peripheral edema. Neurologic: Patient somnolent but arousable. Opens eyes to command. Makes one- word responses but mostly incomprehensible Skin: Warm, dry, no rash Course Administered Medications Heparin Sodium (Porcine) (Heparin Sod 5,000 Unit/0.5 Ml Vial) 5,000 units SQ Q12 [facility] Stop: 04/20/20 20:59 Last Admin: 03/23/20 09:26 Dose: 5,000 units Documented by: [id number] Admin: 03/22/20 21:55 Dose: 5,000 units Documented by: [id number] Admin: 03/22/20 08:42 Dose: 5,000 units Documented by: [id number] Admin: 03/21/20 22:30 Dose: 5,000 units Documented by: [id number] Piperacillin Sod/Tazobactam (Sod 3.375 gm/ Dextrose) 115 mls @ 28.75 mls/hr IV Q8H [facility]; Protocol Stop: 03/29/20 09:59 Last Admin: 03/23/20 11:17 Dose: 28.8 mls/hr Documented by: [id number] Infusion: 03/23/20 05:09 Dose: 0 mls/hr Documented by: [id number] Admin: 03/23/20 01:13 Dose: 28.8 mls/hr Documented by: [id number] Infusion: 03/22/20 21:56 Dose: 0 mls/hr Documented by: [id number] Admin: 03/22/20 17:55 Dose: 28.8 mls/hr Documented by: [id number] Infusion: 03/22/20 13:46 Dose: 0 mls/hr Documented by: [id number] Admin: 03/22/20 09:46 Dose: 28.8 mls/hr Documented by: [id number] Dextrose/Sodium Chloride (D5w And 1/2nss) 1,000 mls @ 80 mls/hr IV .[id number] SHER[facility] Stop: 04/22/20 09:59 Last Admin: 03/23/20 10:14 Dose: 80 mls/hr Documented by: [id number] Discontinued Medications Dextrose (Dextrose 50% 50 Ml Syringe) 50 ml IV NOW ONE Stop: 03/23/20 09:37 Last Admin: 03/23/20 09:40 Dose: Not Given Documented by: [id number] Dextrose (Dextrose 50% 50 Ml Syringe) Confirm Administered Dose 50 ml IV .STK- MED ONE Stop: 03/23/20 09:37 Last Admin: 03/23/20 09:38 Dose: 50 ml Documented by: [id number] Sodium Chloride (Nss 1000ml) 1,000 mls @ 80 mls/hr IV .[id number] [facility] Last Infusion: 03/21/20 19:29 Dose: 0 mls/hr Documented by: [id number] Infusion: 03/21/20 16:00 Dose: 80 mls/hr Documented by: [id number] Admin: 03/21/20 14:16 Dose: 150 mls/hr Documented by: [id number] Piperacillin Sod/Tazobactam Sod (Zosyn) 4.5 gm in 120 mls @ 240 mls/hr IV NOW STA Stop: 03/21/20 13:50 Last Infusion: 03/21/20 15:25 Dose: 0 mls/hr Documented by: [id number] Admin: 03/21/20 14:41 Dose: 240 mls/hr Documented by: [id number] Methylprednisolone 20 mg/ (Syringe) 0.32 mls @ 1.5 mls/min IV NOW STA Stop: 03/21/20 19:26 Last Admin: 03/21/20 21:17 Dose: 1.5 mls/min Documented by: [id number] Potassium Chloride/Sodium Chloride (Normal Saline W/20 Meq Kcl) 20 meq in 1,000 mls @ 75 mls/hr IV .[id number] [facility] Stop: 04/20/20 19:29 Last Admin: 03/22/20 19:32 Dose: Not Given Documented by: [id number] Infusion: 03/22/20 10:45 Dose: 0 mls/hr Documented by: [id number] Admin: 03/21/20 21:17 Dose: 75 mls/hr Documented by: [id number] Piperacillin Sod/Tazobactam (Sod 3.375 gm/ Dextrose) 115 mls @ 28.75 mls/hr IV ONE ONE; Protocol Stop: 03/22/20 05:14 Last Infusion: 03/22/20 05:53 Dose: 0 mls/hr Documented by: [id number] Admin: 03/22/20 01:40 Dose: 28.8 mls/hr Documented by: [id number] Sodium Chloride (Nss 1000ml) 1,000 mls @ 100 mls/hr IV .Q10H [facility] Stop: 04/21/20 20:10 Last Infusion: 03/22/20 20:13 Dose: 0 mls/hr Documented by: [id number] Infusion: 03/22/20 16:36 Dose: 0 mls/hr Documented by: [id number] Admin: 03/22/20 10:45 Dose: 100 mls/hr Documented by: [id number] Sodium Chloride (Nss 1000ml) 1,000 mls @ 125 mls/hr IV .Q8H [facility] Stop: 04/22/20 08:29 Last Infusion: 03/23/20 10:14 Dose: 0 mls/hr Documented by: [id number] Admin: 03/23/20 09:26 Dose: 125 mls/hr Documented by: [id number] Ioversol (Optiray 320 125ml) 120 ml IV ONCE ONE Stop: 03/21/20 13:05 Last Admin: 03/21/20 13:04 Dose: 120 ml Documented by: [id number] Medical Decision Making Differential Diagnosis Infection, dehydration, metabolic abnormality, hypo/hyperglycemia, electrolyte disturbance, anemia, hypoxia, cardiac sources, intracerebral event, toxicologic, neurologic, as well as other pathologies. Medical Records Attestation: I reviewed the patient's medical records. Home Medications Current Medication List: was personally reviewed by me Laboratory Data Attestation: I reviewed the patient's lab results. Result diagrams: 03/23/20 08:15 03/23/20 08:15 Lab Results 03/21/20 03/21/20 03/21/20 Range/Units 10:11 10:30 10:30 WBC (4.8-10.8) K/uL RBC (4.7-6.1) M/uL Hgb (14.0-18.0) g/dL Hct (42-52) % MCV (80-100) fL MCH (25-34) pg MCHC (32-36) g/dL RDW Std Deviation (36.4-46.3) fL RDW Coeff of So (11.5-14.5) % Plt Count (130-400) K/uL MPV (7.4-10.4) fL Immature Gran % (Auto) % Neut % (Auto) % Lymph % (Auto) % Drew % (Auto) % Eos % (Auto) % Baso % (Auto) % Neut # (Auto) (1.4-6.5) K/uL Lymph # (Auto) (1.2-3.4) K/uL Drew # (Auto) (0.11-0.59) K/uL Eos # (Auto) (0-0.5) K/uL Baso # (Auto) (0-0.2) K/uL Immature Gran # (Auto) (0.00-0.02) K/uL PT (9.0-12.0) Seconds INR (0.9-1.1) APTT (21.0-31.0) Seconds PTT Ratio Sodium (136-145) mmol/L Potassium (3.5-5.1) mmol/L Chloride (98-107) mmol/L Carbon Dioxide (21-32) mmol/L Anion Gap (3-11) BUN (7-18) mg/dl Creatinine (0.6-1.4) mg/dl Est Cr Clr Drug Dosing ml/min Est GFR ( Amer) Est GFR (Non-Af Amer) BUN/Creatinine Ratio (10-20) Glucose (70-99) mg/dl POC Glucose 202 H (70-99) mg/dl Calcium (8.5-10.1) mg/dl Magnesium (1.8-2.4) mg/dl Total Bilirubin (0.2-1) mg/dl AST (15-37) U/L ALT (12-78) U/L Alkaline Phosphatase (45-117) U/L Troponin I (0-0.045) ng/ml NT-Pro-B Natriuret Pep (0-1800) pg/ml Total Protein (6.4-8.2) gm/dl Albumin (3.4-5.0) gm/dl Globulin (2.5-4.0) gm/dl Albumin/Globulin Ratio (0.9-2) Urine Color Yellow Urine Appearance Turbid A (Clear) Urine pH 7.5 (4.5-7.5) Ur Specific [place] 1.021 (1.000-1.030) Urine Protein 1+ H (Negative) Urine Glucose (UA) Negative (Negative) Urine Ketones Negative (Negative) Urine Blood 2+ H (Negative) Urine Nitrite Positive A (Negative) Urine Bilirubin Negative (Negative) Urine Urobilinogen Negative (Negative) Ur Leukocyte Esterase 3+ H (Negative) Urine WBC (Auto) >30 H (0-5) /hpf Urine RBC (Auto) 10-30 H (0-4) /hpf U Hyaline Cast (Auto) 1-5 (0-5) /lpf U Epithel Cells (Auto) 10-20 H (0-5) /lpf Urine Bacteria (Auto) 4+ H (Negative) Triple Phos Crystals Present A (None Prsent) Amorphous Sediment Present A (None Prsent) Urine Mucus Present A (None Prsent) Urine Yeast Not Reportable COVID-19 Eval Order Covid19 [facility]Now [facility] SARS-CoV-2, RNA, NAAT (NEGATIVE) 03/21/20 03/21/20 03/21/20 Range/Units 10:30 11:27 11:27 WBC 12.79 H (4.8-10.8) K/uL RBC 3.10 L (4.7-6.1) M/uL Hgb 9.3 L (14.0-18.0) g/dL Hct 28.1 L (42-52) % MCV 90.6 (80-100) fL MCH 30.0 (25-34) pg MCHC 33.1 (32-36) g/dL RDW Std Deviation 60.9 H (36.4-46.3) fL RDW Coeff of So 18.3 H (11.5-14.5) % Plt Count 117 L (130-400) K/uL MPV 10.4 (7.4-10.4) fL Immature Gran % (Auto) 0.2 % Neut % (Auto) 90.3 % Lymph % (Auto) 4.8 % Drew % (Auto) 4.1 % Eos % (Auto) 0.4 % Baso % (Auto) 0.2 % Neut # (Auto) 11.55 H (1.4-6.5) K/uL Lymph # (Auto) 0.61 L (1.2-3.4) K/uL Drew # (Auto) 0.52 (0.11-0.59) K/uL Eos # (Auto) 0.05 (0-0.5) K/uL Baso # (Auto) 0.03 (0-0.2) K/uL Immature Gran # (Auto) 0.03 H (0.00-0.02) K/uL PT 13.0 H (9.0-12.0) Seconds INR 1.2 H (0.9-1.1) APTT 39.0 H (21.0-31.0) Seconds PTT Ratio 1.4 Sodium (136-145) mmol/L Potassium (3.5-5.1) mmol/L Chloride (98-107) mmol/L Carbon Dioxide (21-32) mmol/L Anion Gap (3-11) BUN (7-18) mg/dl Creatinine (0.6-1.4) mg/dl Est Cr Clr Drug Dosing ml/min Est GFR ( Amer) Est GFR (Non-Af Amer) BUN/Creatinine Ratio (10-20) Glucose (70-99) mg/dl POC Glucose (70-99) mg/dl Calcium (8.5-10.1) mg/dl Magnesium (1.8-2.4) mg/dl Total Bilirubin (0.2-1) mg/dl AST (15-37) U/L ALT (12-78) U/L Alkaline Phosphatase (45-117) U/L Troponin I (0-0.045) ng/ml NT-Pro-B Natriuret Pep (0-1800) pg/ml Total Protein (6.4-8.2) gm/dl Albumin (3.4-5.0) gm/dl Globulin (2.5-4.0) gm/dl Albumin/Globulin Ratio (0.9-2) Urine Color Urine Appearance (Clear) Urine pH (4.5-7.5) Ur Specific [place] (1.000-1.030) Urine Protein (Negative) Urine Glucose (UA) (Negative) Urine Ketones (Negative) Urine Blood (Negative) Urine Nitrite (Negative) Urine Bilirubin (Negative) Urine Urobilinogen (Negative) Ur Leukocyte Esterase (Negative) Urine WBC (Auto) (0-5) /hpf Urine RBC (Auto) (0-4) /hpf U Hyaline Cast (Auto) (0-5) /lpf U Epithel Cells (Auto) (0-5) /lpf Urine Bacteria (Auto) (Negative) Triple Phos Crystals (None Prsent) Amorphous Sediment (None Prsent) Urine Mucus (None Prsent) Urine Yeast COVID-19 Eval Order SARS-CoV-2, RNA, NAAT NEGATIVE (NEGATIVE) 03/21/20 03/21/20 Range/Units 11:27 14:15 WBC (4.8-10.8) K/uL RBC (4.7-6.1) M/uL Hgb (14.0-18.0) g/dL Hct (42-52) % MCV (80-100) fL MCH (25-34) pg MCHC (32-36) g/dL RDW Std Deviation (36.4-46.3) fL RDW Coeff of So (11.5-14.5) % Plt Count (130-400) K/uL MPV (7.4-10.4) fL Immature Gran % (Auto) % Neut % (Auto) % Lymph % (Auto) % Drew % (Auto) % Eos % (Auto) % Baso % (Auto) % Neut # (Auto) (1.4-6.5) K/uL Lymph # (Auto) (1.2-3.4) K/uL Drew # (Auto) (0.11-0.59) K/uL Eos # (Auto) (0-0.5) K/uL Baso # (Auto) (0-0.2) K/uL Immature Gran # (Auto) (0.00-0.02) K/uL PT (9.0-12.0) Seconds INR (0.9-1.1) APTT (21.0-31.0) Seconds PTT Ratio Sodium 141 (136-145) mmol/L Potassium 3.9 (3.5-5.1) mmol/L Chloride 107 (98-107) mmol/L Carbon Dioxide 30 (21-32) mmol/L Anion Gap 4.0 (3-11) BUN 35 H (7-18) mg/dl Creatinine 1.09 (0.6-1.4) mg/dl Est Cr Clr Drug Dosing 43.8 ml/min Est GFR ( Amer) 74.4 Est GFR (Non-Af Amer) 64.2 BUN/Creatinine Ratio 31.8 H (10-20) Glucose 91 (70-99) mg/dl POC Glucose (70-99) mg/dl Calcium 8.7 (8.5-10.1) mg/dl Magnesium 2.0 (1.8-2.4) mg/dl Total Bilirubin 0.3 (0.2-1) mg/dl AST 23 (15-37) U/L ALT 24 (12-78) U/L Alkaline Phosphatase 86 (45-117) U/L Troponin I < 0.015 (0-0.045) ng/ml NT-Pro-B Natriuret Pep 3104 H (0-1800) pg/ml Total Protein 6.0 L (6.4-8.2) gm/dl Albumin 1.9 L (3.4-5.0) gm/dl Globulin 4.1 H (2.5-4.0) gm/dl Albumin/Globulin Ratio 0.5 L (0.9-2) Urine Color Yellow Urine Appearance Clear (Clear) Urine pH 7.5 (4.5-7.5) Ur Specific [place] 1.032 H (1.000-1.030) Urine Protein Negative (Negative) Urine Glucose (UA) Negative (Negative) Urine Ketones Negative (Negative) Urine Blood 1+ H (Negative) Urine Nitrite Negative (Negative) Urine Bilirubin Negative (Negative) Urine Urobilinogen Negative (Negative) Ur Leukocyte Esterase 2+ H (Negative) Urine WBC (Auto) >30 H (0-5) /hpf Urine RBC (Auto) 5-10 H (0-4) /hpf U Hyaline Cast (Auto) 5-10 H (0-5) /lpf U Epithel Cells (Auto) 0-5 (0-5) /lpf Urine Bacteria (Auto) Negative (Negative) Triple Phos Crystals (None Prsent) Amorphous Sediment (None Prsent) Urine Mucus (None Prsent) Urine Yeast COVID-19 Eval Order SARS-CoV-2, RNA, NAAT (NEGATIVE) Imaging Data Radiologist's Impression: XR chest 1V portable CLINICAL HISTORY: Dyspnea COMPARISON STUDY: 02/09/2020 FINDINGS: The heart is mildly enlarged. There are progressive bilateral pulmonary airspace opacities most pronounced within the left lower lobe. A multifocal pneumonia is suspected. Underlying emphysema is evident. There is mild central vascular prominence without evidence of overt edema. Trace pleural effusions are also suspected.[ IMPRESSION: Progressive bilateral pulmonary airspace opacities, likely representing a multifocal pneumonia. Clinical and radiographic follow-up is recommended. ACT 112: Negative or not required by law. Electronically signed by: Atif Campuzano M.D. 03/21/2020 11:16 AM Dictated: 03/21/20 1113Transcribed: 03/21/[address] DOSE: 1534.13 mGy.cm HISTORY: R facial bruise TECHNIQUE: Multiaxial CT images of the head were performed without the use of intravenous contrast. Automated exposure control was utilized for this study. A dose lowering technique was utilized adhering to the principles of ALARA. Comparison: Head CT 02/09/2020. Findings: The paranasal sinuses and mastoid air cells are clear. The calvarium and skull base are intact. There is no mass, hematoma, midline shift, acute infarct. White matter hypodensity is nonspecific but suggestive of microvascular ischemic change. The ventricles and sulci demonstrate mild age-related involutional changes. Motion artifact. Impression: Motion artifact. No definite acute intracranial abnormality. ACT 112: Negative or not required by law. Electronically signed by: Yonathan Coppola M.D. 03/21/2020 12:00 PM Dictated: 03/21/20 1146Transcribed: 03/21/[address] ANGIOGRAM OF THE CHEST CLINICAL HISTORY: Dyspnea. COMPARISON STUDY: Chest x-ray dated 03/21/2020. Chest CT scans dated 06/27/2019 and 07/24/2014. TECHNIQUE: Following the IV administration of 120 cc of Optiray 320, CT angiogram of the chest was performed from the upper abdomen to the thoracic inlet utilizing the pulmonary embolus protocol. Images are reviewed in the axial, sagittal, and coronal planes. 3-D MIPS images are created and assessed. IV contrast was administered without complication. A dose lowering technique was utilized adhering to the principles of ALARA. Examination is compromised by motion artifact. CT DOSE: 244.91 mGy.cm FINDINGS: Thyroid: Imaged portions of the thyroid gland are normal in size and heterogeneous in attenuation. Thoracic aorta: There is atherosclerotic calcification of the thoracic aorta. There is mild ectasia of the ascending thoracic aorta which measures up to 3.8 cm diameter. The remainder of the thoracic aorta Is normal in caliber, and the arch demonstrates standard 3-vessel anatomy. The thoracic aorta is not well opacified. Pulmonary vasculature: The pulmonary trunk is normal in caliber. There are no filling defects identified in main, lobar, or segmental pulmonary branches to suggest pulmonary embolus. Evaluation of the peripheral branches is degraded by motion artifact and suboptimal contrast opacification. Heart: The heart is markedly enlarged and without pericardial effusion. The coronary arteries are densely calcified. Lungs and pleural spaces: Emphysema is change is noted. Debris fills the right lower lobe airways. Minimal debris is seen within the mainstem bronchi. The trachea is clear. There is dense airspace consolidation throughout the left lower lobe. Patchy airspace consolidation is seen throughout the right middle and lower lobes as well as the left upper lobe/lingula. Minimal consolidation is seen in the right upper lobe. There are small pleural effusions. Mediastinum: There is no mediastinal lymphadenopathy. Dayan: Grossly clear. Axillae: There is no axillary lymphadenopathy. Upper abdomen: Partially visualized upper abdominal viscera is grossly unremarkable. Skeletal structures: The skeletal structures are osteopenic. Degenerative change and hyperkyphosis is noted in the thoracic spine. No lytic or blastic bony lesions are seen. There are healed right-sided rib fractures. IMPRESSION: 1. There is no evidence of pulmonary embolus in the main, lobar, or segmental pulmonary arteries. 2. Cardiomegaly and emphysema. 3. There is dense airspace consolidation throughout the left lower lobe with milder patchy airspace consolidation seen throughout both lungs. The appearance is typical for pneumonia/aspiration pneumonitis. Clinical correlation will be required and radiographic follow-up to resolution is recommended. 4. Small pleural effusions. 5. Additional findings as above. ACT 112: Negative or not required by law. Electronically signed by: Jason Camacho M.D. 03/21/2020 1:13 PM Dictated: 03/21/20 1304Transcribed: 03/21/20 1304 ECG Data Attestation: I personally reviewed and interpreted this ECG as follows: Indication: + SOB/dyspnea and + weakness Rate (beats per minute): 57 Rhythm: + sinus bradycardia ECG Intervals/blocks: + First degree AV block ECG ST segments: + Nonspecific ST abnormalities ECG Findings: no PACs and no PVCs Blood Pressure Blood Pressure Findings: Low blood pressure Blood Pressure Disposition: further management by hospitalist MDM Narrative This patient was evaluated and appeared to be in no significant distress. IV access was obtained and laboratory work was drawn. An order for cardiac monitoring was placed and the patient is noted to be in a sinus bradycardia with a first-degree AV block. Patient was hydrated with normal saline solution. He was placed on isolation precautions as he is coming from a nursing facility. A Covid swab was obtained and is negative. Chest x-ray was obtained and is significant for patchy bilateral airspace consolidation. CT scan of the chest was performed in follow-up and confirms patchy bilateral airspace consolidation throughout the left lower lobe and milder patchy airspace consolidation thro ughout both lungs. The patient is a high risk for aspiration pneumonia and this is likely recurrent/progressive from his previous admission. This would explain why the patient is currently stable on room air however was hypoxic prior to arrival. Blood cultures were obtained the patient was placed on Zosyn IV. Case was discussed with the hospitalist service who will evaluate the patient for admission and further management. Impression & Plan Aspiration into lower respiratory tract, Elevated lactic acid level, Urinary tract infection associated with catheterization of urinary tract Discharge Plan Visit Data Chief Complaint: Shortness of Breath/Dyspnea ED Provider: Moon Parrish Discharge Problem: Aspiration into lower respiratory tract, Elevated lactic acid level, Urinary tract infection associated with catheterization of urinary tract Patient Disposition: Admitted As Inpatient Discharge Instructions Interventions: ED Discharge Assessment Last Done: 03/21/20 19:32 Discharge Problem: Aspiration into lower respiratory tract Qualifiers: Encounter type: initial encounter Qualified Code(s): T17.800A - Unspecified foreign body in other parts of respiratory tract causing asphyxiation, initial encounter Urinary tract infection associated with catheterization of urinary tract Qualifiers: Indwelling urinary catheter type: indwelling urethral catheter Encounter type: initial encounter Qualified Code(s): T83.511A - Infection and inflammatory reaction due to indwelling urethral catheter, initial encounter
[2020-03-21 15:01] LABS: Appearance Urine Clear (Clear); Bacteria Urine Automated Negative (Negative); Bilirubin Urine Negative (Negative); Blood Urine 1+ (Negative); Color Urine Yellow; Epithelial Cell Urine Auto 0-5 /lpf (0-5); Glucose Urine UA Negative (Negative); Ketones Urine Negative (Negative); Leukocyte Esterase Urine 2+ (Negative); Nitrite Urine Negative (Negative); Protein Urine Negative (Negative); Specific Gravity Urine 1.032 (1.000-1.030); Urobilinogen Urine Negative (Negative); WBC Urine Automated >30 /hpf (0-5); pH Urine 7.5 (4.5-7.5)
--- NOTE | 2020-03-21 18:59 | XRay Report ---
SINGLE VIEW CHEST CLINICAL HISTORY: Dyspnea. FINDINGS: An AP, portable, supine chest radiograph is compared to chest x-ray and chest CT performed earlier the same day 03/21/2020. The heart is markedly enlarged noting atherosclerotic calcification of the thoracic aorta. Multifocal airspace consolidation has not significantly changed from today's e arlier examination. No large pleural effusion or pneumothorax is seen. The skeletal structures are os teopenic. The bony thorax is grossly intact. IMPRESSION: Multifocal airspace consolidation has not significantly changed from today's earlier exam ination. ACT 112: Negative or not required by law. Electronically signed by: Jason Camacho M.D. 03/21/2020 6:58 PM
--- NOTE | 2020-03-21 19:18 | Communication Note ---
Date of Service: March 21, 2020 Notified by ED nurse at 16:15 that pt was hypothermic with a rectal tempt of 33C. Pia hugger ordered to be applied. Recheck temp in 30-60 minutes Notified by ED nurse at 17:23 that pt's temp was still 33.1C despite use of pia hugger but nurse noted that patient had been pulling it off intermittently and was just now resting comfortably. Instructed to continue pia hugger and add warmer to IV fluids. Notified by ED nurse at 18:09 that patient just had a potential seizure - event described as pulseox dropping low 70s. When nurse entered the room, pt was rigid in the bed starting straight ahead. Oxygen via oxymask applied. Patient relaxed and seemed to calm down. Entire event lasted around 60 seconds. Went to ED to evaluate patient at 18:20. Noted to be more short of breath and tachypneic that when seen prior. Increased agitation and confusion. Lungs with diminished air movement, accessory muscle use noted. Temp improved to 33.7C but pt destroyed the pia hugger so warm blankets applied. When initially seen pulseox was in the low 90s on room air again. Portable chest x-ray ordered. Pt became increasingly agitated. Dr. Leger notified and came to evaluate pt with me in ED. During our evaluation, patient became increasingly agitated and sats dropped into the upper 70s again. O2 applied by non-rebreather with im provement. Titrated down to 6L via oxymask, which pt seemed to tolerate. Fluids held until portable chest x-ray can be reviewed. Will change to PCU status and 1:1 observation ordered. Case management notified of status change. Patient signed out to overnight coverage - Dr. Evans. Little Rees PA-C Update 2100: repeat rectal temp is 35C and pia hugger has been applied. Active rewarming process in effect on the floor. Hypothermia likely contributing to his confusion. Cont plan per H&P. Arsen, DO
[2020-03-21] MEDS ORDERED: ALBUT/IPRATROP 3MG/0.5MG NEB 3 ML VIAL NEB PRN (19:25)
[2020-03-21] MEDS ORDERED: methylPREDNISolone 20 MG in SYRINGE 0 ML IV STA (19:25)
[2020-03-21] MEDS ORDERED: PNEUMOCOCCAL POLYSACCHARIDES 25 MCG/0.5 ML VIAL/SYR IM ONE (20:54)
[2020-03-21] MEDS ORDERED: INFLUENZA ADMINISTRATION CHARGE ONE (20:54)
[2020-03-21] MEDS ORDERED: INFLUENZA VACCINE HIGH DOSE 65+ 0.7 ML SYR IM ONE (20:54)
[2020-03-21] MEDS ORDERED: PNEUMOCOCCAL ADMINISTRATION CHARGE ONE (20:54)
[2020-03-21] MEDS: NSS + 20MEQ KCL 20 MEQ/1,000 ML BAG IV SCH (21:17)
[2020-03-21] MEDS: HEPARIN SOD 5,000 UNIT/0.5 ML VIAL SQ SCH (22:30)
[2020-03-22] MEDS ORDERED: PIPERACILLIN/TAZOBACTAM 3.375 GM in DEXTROSE 5% 100 ML IV ONE (01:15)
[2020-03-22] MEDS ORDERED: PIPERACILL/TAZOBAC CONSULT ACTIVE PRN (01:16)
--- NOTE | 2020-03-22 05:46 | Electrocardiogram Report ---
Test Reason : Blood Pressure : / mmHG Vent. Rate : 057 BPM Atrial Rate : 057 BPM P-R Int : 210 ms QRS Dur : 108 ms QT Int : 484 ms P-R-T Axes : 106 -36 029 degrees QTc Int : 471 ms Sinus bradycardia with 1st degree A-V block Left axis deviation Abnormal ECG When compared with ECG of 27-JUN-2019 16:25, VT interval has increased Vent. rate has decreased BY 33 BPM Nonspecific T wave abnormality no longer evident in Lateral leads Confirmed by Constantin Thompson ([id number]) on 03/22/2020 5:46:37 AM Referred By: REFERRED SELF Confirmed By:Constantin Thompson
[2020-03-22 06:12] LABS: Basophils # (auto) 0.01 K/uL (0-0.2); Basophils % (auto) 0.1 %; Hematocrit (blood only) 27.8 % (42-52); Hemoglobin 9.2 g/dL (14.0-18.0); Immature Granulocytes # (auto) 0.04 K/uL (0.00-0.02); Immature Granulocytes % (auto) 0.5 %; Lymphocytes # (auto) 0.43 K/uL (1.2-3.4); Lymphocytes % (auto) 5.2 %; Mean Corpuscular Hemoglobin 30.3 pg (25-34); Mean Corpuscular Hgb Conc 33.1 g/dL (32-36); Mean Corpuscular Volume 91.4 fL (80-100); Mean Platelet Volume 10.3 fL (7.4-10.4); Monocytes # (auto) 0.09 K/uL (0.11-0.59); Monocytes % (auto) 1.1 %; Neutrophils # (auto) 7.76 K/uL (1.4-6.5); Neutrophils % (auto) 93.1 %; Platelet Count 158 K/uL (130-400); RDW Coefficient of Variation 18.5 % (11.5-14.5); RDW Standard Deviation 62.1 fL (36.4-46.3); Red Blood Count 3.04 M/uL (4.7-6.1); White Blood Count 8.33 K/uL (4.8-10.8)
[2020-03-22 06:54] LABS: BUN Creatinine Ratio 27.7 (10-20); Calcium 8.2 mg/dl (8.5-10.1); Creatinine Clr Calc Pharmacy 41.7 ml/min; Est GFR (African American) 72.8; Est GFR (Non-African American) 62.8; Phosphorus 4.4 mg/dl (2.5-4.9)
[2020-03-22] MEDS: HEPARIN SOD 5,000 UNIT/0.5 ML VIAL SQ SCH ×2 (08:42→21:55)
[2020-03-22] MEDS: PIPERACILLIN/TAZOBACTAM 3.375 GM in DEXTROSE 5% 100 ML IV SCH ×2 (09:46→17:55)
[2020-03-22] MEDS ORDERED: SODIUM CHLORIDE 0.9% 1000ML 1,000 ML IV SCH (10:30)
[2020-03-22 10:58] LABS: Allen Test Pos (Pos); Base Excess ABG -0.3 mEq/L (-9-1.8); HCO3 ABG 26 mmol/L (19-24); Oxygen Saturation ABG 97.4 % (90-95); PCO2 ABG 51 mmHg (35-46); PO2 ABG 102 mmHg (80-95); pH ABG 7.32 (7.35-7.45)
--- NOTE | 2020-03-22 11:06 | Pulmonary Consultation ---
Date of Consultation March 22, 2020 Assessment & Plan (1) Aspiration into lower respiratory tract: Encounter type: initial encounter Qualified Code(s): T17.800A - Unspecified foreign body in other parts of respiratory tract causing asphyxiation, initial encounter (2) Multifocal pneumonia: Impression: 79-year-old male with a severe neurocognitive dysfunction presenting now with recurrent aspiration pneumonia: Based on review of his prior swallow studies, I am convinced that the patient has recurrent episodes of aspiration and his current radiographic findings and clinical syndrome are consistent with a recurrent aspiration event. Unfortunately, his swallowing difficulties appear to be not amenable to a reversible strategy currently. Bronchoscopy could be considered to evacuate the tracheobronchial tree however I suspect he will have episodes of recurrent aspiration and recurrent pneumonia. Recommendations: 1. Discussed with the hospitalist at the bedside. At this point time I would agree that defining goals of therapy in this patient are highly appropriate and palliative care consultation should be undertaken. I would not recommend bronchoscopy as if the patient is unable to cough secretions and unable to reverse his swallowing dysfunction, this will be a recurrent event and unless the medical proxy decides to pursue tracheostomy and or PEG placement, he is going to have recurrent episodes of respiratory failure and aspiration. Does not appear that this is the direction the patient and the caregiver want to go so at this point time I would favor continued course of antibiotics and optimizing the patient's swallowing is much as possible. I do not think there is a role for bronchodilators or CoughAssist at this point in time as the patient's cognitive dysfunction appears to be the leading mechanism impairing his ability to achieve adequate pulmonary toilet. We will sign off at this point in time. Feel free to contact us if we can be of additional assistance. History of Present Illness Attending Physician: Fanny Leger DO History of Present Illness Asked by the hospitalist to evaluate this patient with recurrent pneumonia. H istory is obtained from review of electronic medical record and discussion with the hospitalist. The patient has underlying neurocognitive dysfunction and is unable to provide any history. The patient is a 79-year-old male with a complex prior medical history including prior CVA, vascular dementia, schizoaffective disorder, and previous episodes of dysphagia who was brought to the emergency room from his health care center due to hypoxemia. Patient apparently had increasing short of breath and hypoxemia which prompted EMS evaluation. Covid testing earlier this week was reportedly negative. He was admitted back in February for pneumonia and a speech therapy consultation and swallow evaluation was attempted at that point time however the patient was not able to be compliant with therapy due to his cognitive status. He apparently became very agitated and belligerent with the speech therapy staff. Interestingly, the patient had a previous admission back in June where he underwent speech therapy evaluation and he was unable to appropriately handle an ice cube. The patient reportedly has had increasing respiratory issues. The hospitalist team is working on defining goals of therapy for this patient and palliative care is apparently been engaged. Allergies Allergy/AdvReac Type Severity Reaction Status Date / Time olanzapine Allergy Mild "IT DOES Verified 03/14/20 13:33 NOT WORK" risperidone Allergy Unknown UNKNOWN Verified 03/14/20 13:33 lisinopril AdvReac Severe Verified 03/14/20 13:33 Influenza Virus Vaccines AdvReac PAIN AT Verified 03/14/20 13:33 INJECTION SITE Tricyclic Antidepressants Allergy Unknown Unknown Uncoded 03/14/20 13:33 Home Medications Medication Instructions Recorded Confirmed Type Artificial Tears (PF) 1 drp OPB BID 11/22/18 03/21/20 History benztropine 1 mg PO BID 11/22/18 03/21/20 History docusate sodium 100 mg PO BID 11/22/18 03/21/20 History fluphenazine decanoate 25 mg IM MONTHLY 11/22/18 03/21/20 History memantine 10 mg PO BID 11/22/18 03/21/20 History mirtazapine 30 mg PO HS@2000 11/22/18 03/21/20 History acetaminophen [Tylenol] 650 mg PO Q4 PRN MDD 3G 03/15/19 03/21/20 History tamsulosin 0.4 mg PO QAM@0800 03/15/19 03/21/20 History finasteride 5 mg PO QAM@0800 05/07/19 03/21/20 History fluphenazine HCl 2.5 mg PO Q6H PRN 05/07/19 03/21/20 History perphenazine 2 mg PO UD 06/05/19 03/21/20 History Saccharomyces boulardii [Florastor] 250 mg PO BID 02/09/20 03/21/20 History bisacodyl [Dulcolax (bisacodyl)] 10 mg UT DAILY PRN 02/09/20 03/21/20 History lactase [Lactaid] 3,000 unit PO TIDM 02/09/20 03/21/20 History melatonin 0 mg PO UD PRN 02/09/20 03/21/20 History multivitamin with minerals 1 tab PO DAILY 02/09/20 03/21/20 History Patient History Medical History Anemia Anxiety BPH loc w urin obs/LUTS CKD (chronic kidney disease), stage III Dementia Dysphagia following CVA H/O: CVA (cerebrovascular accident) Hemangioma of lip HTN (hypertension) Indwelling Guy catheter present Muscle weakness (generalized) Palliative care encounter Pulmonary nodule Recurrent aspiration pneumonia Schizoaffective disorder Sepsis due to Pseudomonas March 2019 Urinary retention Urinary retention due to benign prostatic hyperplasia Surgical History Hx of cataract surgery S/P tonsillectomy Family History Other Hypertension Social History Smoking Status: Unknown if ever smoked Years Smoked: 50; Second Hand Exposure: No; Hx Alcohol Use: No Hx Substance Use: No Preferred Language: Macedonian Communication Ability: Impaired Communication Ability Comment: Jose following basic commands. Cnc Field Service Engineer Required: No Beliefs That Will Affect Care: None marital status: Single Current Living Situation: Prison Current Living Situation Comment: [facility] Other Information That Helps Us Care for You: No Feels Safe at Home: Declines to Answer Assistive Devices: Oxygen - Continuous Assistive Devices Comment: 2 person assist with repositioning. Review of Systems Review of Systems: Unobtainable due to cognitive status Physical Exam Physical Exam: Please refer to hospitalist admission H&P. No changes Results & Data Results & Data ([facility]) Vital Signs (Past 12 Hours) Vital Signs Temp Pulse Resp BP Pulse Ox Pulse Ox 03/22/20 08:00 96 03/22/20 07:50 36.6 C 84 24 111/60 96 03/22/20 04:58 36.7 C 86 21 133/75 97 03/22/20 00:00 98 03/21/20 23:55 36.4 C L 79 18 123/72 98 Laboratory Results 03/22/20 05:35 03/22/20 05:[address] of the chest 03/21/2020 was reviewed. There is dense consolidation in the left lower lobe with some patchy airspace opacity in the bilateral lower lobes. There appears to be a small amount of debris in the left mainstem bronchus. PG Care Time/CCT Total # of Minutes Spent Total Time Spent with Patient: Total time spent is greater than 50% in coordination of care (as documented) at patient's floor/unit and/or counseling patient: Coding Level of Care Code 29704 Initial Inpt Care Lvl 3 Diagnoses Aspiration into lower respiratory tract T17.800A Encounter type: initial encounter Multifocal pneumonia J18.9
--- NOTE | 2020-03-22 11:11 | XRay Report ---
XR chest 1V portable CLINICAL HISTORY: hypoxia, pneumonia COMPARISON STUDY: Chest radiograph and chest CT March 21, 2020. FINDINGS: Patient is rotated. There is no pneumothorax. Small bilateral pleural effusions persist. Bi basilar consolidation has increased. Cardiomegaly is unchanged. IMPRESSION: 1. Increase in bibasilar consolidation consistent with an infectious process. 2. Small bilateral pleural effusions. 3. Cardiomegaly. ACT 112: Negative or not required by law. Electronically signed by: Aaron Killian M.D. 03/22/2020 11:10 AM
--- NOTE | 2020-03-22 17:23 | Hospitalist Progress Note ---
Date of Service March 22, 2020 Assessment & Plan (1) Multifocal pneumonia: recurrent pneumonia 2/2 recurrent aspiration. Poor prognosis. Appreciate pulm recommendations regarding limited options. Cont broad spectrum Zosyn and NPO status. Currently holding IVf this afternoon 2/2 worsening respiratory status. BIPAP started with some improvement. Aggressively trying to reach out to [facility] director or guardian regarding possible code status change, which was being considered at prior hospitalization. (2) Aspiration into lower respiratory tract: - NPO as above - Aspiration precautions - Speech therapy evaluation ordered but they cannot feed him while he is so confused, also oral mucous membranes are very dry. -Will defer until patient improves clinically. (3) Urinary tract infection associated with catheterization of urinary tract: Abnormal UA in ED in setting of indwelling Guy - Culture pending - Cover with empiric Zosyn pending culture results -Guy recently switched one week ago during Urology visit. (4) Metabolic encephalopathy: Suspect related to above infections. Cont plan above. (5) Severe protein-calorie malnutrition: Currently NPO due to concern for aspiration - Eventual nutrition consult - the potential of enteral nutrition has been discussed in the past although this would not eliminate the risk of aspiration. (6) CKD (chronic kidney disease), stage III: Creatinine appears to be at baseline at present although BUN elevated, suspect from mild dehdyration - Follow labs (7) BPH loc w urin obs/LUTS: Pt has indwelling Guy catheter - last changed by urology one week ago. (8) Schizoaffective disorder: May be contributing to combativeness and encephalopathy, Continue outpatient med regimen once taking po (9) HTN (hypertension): BP at present is stable - holding oral meds for now. Continue to monitor. (10) Dementia: reorient as needed (11) DVT prophylaxis: CODE STATUS UPDATE: I SPOKE WITH PERI ARCEO-ACTING DIRECTOR AT OFFICE OF AGING-WHO GAVE A VERBAL ORDER ALLOWING A CHANGE OFF CODE STATUS TO DNR. THIS WAS UPDATED IN THE CHART. IF STATUS WORSENS OVERNIGHT OR ON THE WEEKEND, CONTACT [facility] PLANNING OFFICIALUNEMPLOYMENT INSURANCE DIRECTOR KEITH AT [phone] FOR FURTHER CHANGES NEEDED. Heparin Dispo-uncertain, cont PCU monitoring. Fanny Leger DO [facility] Hospitalist Admission and Anticipated Discharge Date Admission Date: March 21, 2020 Subjective 79 yo M presents found down at [facility], hypoxic, admitted for multifocal recurrent pneumonia and aspiration -patient still encephalopathic so cannot obtain ROS -worsened respiratory status-->held fluids-->put on BIPAP 03/09 around 4pm for increased respiratory distress and mild acute respiratory acidosis -working on connecting with director at [employer] [facility], who can give verbal code status global climate change researcher the phone -palliative unable to see patient today -tried connecting with Radha Noble, guardian, LM -connected with who is aware of code status issues -concern is that his prognosis is poor and if he is intubated, this would be a potential progression to trach and PEG -need to address this medical plan before complete respiratory failure -awaiting a call back from director Bell this afternoon. -primary nurse aware of plan. Review of Systems Review of Systems: All systems reviewed & are unremarkable except as noted in Subjective Physical Exam Physical Exam: CONSTITUTIONAL: thin, frail, vitals as above, increased work of breathing EYES: pupils are round and equal bilaterally, normal conjunctivae ENT: external ear and nose normal, mucous membranes are dry RESPIRATORY: limited exam as patient uncooperative, clear to auscultation bilaterally with diminished breath sounds throughout, no crackles, rales or wheezes, increased respiratory effort with accessory muscle use. CARDIOVASCULAR: regular rate and rhythm, S1 and 2 heard without murmurs, gallops or rubs, no JVD, no peripheral edema GASTROINTESTINAL: soft, nontender, nondistended, no guarding MUSCULOSKELETAL: strength 5/5 throughout, head is normocephalic and atraumatic SKIN: warm and dry, large hemangioma present on lip NEUROLOGIC: limited as patient is encephalopathic and in respiratory distress. Results & Data Results & Data ([facility]) Vital Signs (Past 12 Hours) Vital Signs Temp Pulse Pulse Resp BP Pulse Ox Pulse Ox 03/22/20 16:41 85 26 H 92 03/22/20 16:13 36.6 C 82 28 H 105/62 93 03/22/20 12:48 36.9 C 85 20 87/47 L 93 03/22/20 08:00 96 03/22/20 07:50 36.6 C 84 24 111/60 96 Laboratory Results Short CBC 03/22/20 Range/Units 05:35 WBC 8.33 (4.8-10.8) K/uL Hgb 9.2 L (14.0-18.0) g/dL Hct 27.8 L (42-52) % Plt Count 158 (130-400) K/uL BMP 03/22/20 05:35 Sodium 140 Potassium 5.0 D Chloride 109 H Carbon Dioxide 28 BUN 31 H Creatinine 1.11 Glucose 67 L Calcium 8.2 L Cardiac Enzymes 03/22/20 Range/Units 05:35 Total Creatine Kinase 22 L (39-308) U/L Medications Administered Current Inpatient Medications Albuterol (Albut/Ipratrop 3mg/0.5mg Neb 3 Ml Vial) 3 ml NEB Q2R PRN PRN Reason: Wheezing Stop: 04/20/20 19:24 Heparin Sodium (Porcine) (Heparin Sod 5,000 Unit/0.5 Ml Vial) 5,000 units SQ Q12 SHERIE Stop: 04/20/20 20:59 Last Admin: 03/22/20 08:42 Dose: 5,000 units Documented by: Piperacillin Sod/Tazobactam (Sod 3.375 gm/ Dextrose) 115 mls @ 28.75 mls/hr IV Q8H SHERIE; Protocol Stop: 03/29/20 09:59 Last Infusion: 03/22/20 13:46 Dose: Infused Documented by: Sodium Chloride (Nss 1000ml) 1,000 mls @ 100 mls/hr IV .Q10H SHERIE Stop: 04/21/20 10:29 Last Infusion: 03/22/20 16:36 Dose: 0 mls/hr Documented by: Miscellaneous Information (Piperacill/Tazobac Consult Active) 1 ea N/A UD PRN PRN Reason: Consult Stop: 04/21/20 01:15 (1) Aspiration into lower respiratory tract Encounter type: initial encounter Qualified Code(s): T17.800A - Unspecified foreign body in other parts of respiratory tract causing asphyxiation, initial encounter (2) Urinary tract infection associated with catheterization of urinary tract Encounter type: initial encounter Indwelling urinary catheter type: indwelling urethral catheter Qualified Code(s): T83.511A - Infection and inflammatory reaction due to indwelling urethral catheter, initial encounter; N39.0 - Urinary tract infection, site not specified (3) CKD (chronic kidney disease), stage III Chronic kidney disease stage 3 subtype: unspecified whether 3a or 3b Qualifie d Code(s): N18.30 - Chronic kidney disease, stage 3 unspecified (4) Schizoaffective disorder Schizoaffective disorder type: unspecified Qualified Code(s): F25.9 - Schizoaffective disorder, unspecified (5) HTN (hypertension) Hypertension type: essential hypertension Qualified Code(s): I10 - Essential (primary) hypertension (6) Dementia Dementia type: vascular dementia Dementia behavioral disturbance: with behavioral disturbance Qualified Code(s): F01.51 - Vascular dementia with behavioral disturbance
[2020-03-22] MEDS: NSS + 20MEQ KCL 20 MEQ/1,000 ML BAG IV SCH (19:32)
[2020-03-23] MEDS: PIPERACILLIN/TAZOBACTAM 3.375 GM in DEXTROSE 5% 100 ML IV SCH ×3 (01:13→17:39)
[2020-03-23] MEDS ORDERED: SODIUM CHLORIDE 0.9% 1000ML 1,000 ML IV SCH (08:30)
[2020-03-23 08:54] LABS: Hematocrit (blood only) 29.5 % (42-52); Hemoglobin 9.7 g/dL (14.0-18.0); Mean Corpuscular Hemoglobin 30.3 pg (25-34); Mean Corpuscular Hgb Conc 32.9 g/dL (32-36); Mean Corpuscular Volume 92.2 fL (80-100); Mean Platelet Volume 9.8 fL (7.4-10.4); Platelet Count 151 K/uL (130-400); RDW Coefficient of Variation 18.4 % (11.5-14.5); RDW Standard Deviation 62.6 fL (36.4-46.3); White Blood Count 14.43 K/uL (4.8-10.8)
[2020-03-23] MEDS: HEPARIN SOD 5,000 UNIT/0.5 ML VIAL SQ SCH ×2 (09:26→20:32)
[2020-03-23 09:35] LABS: BUN Creatinine Ratio 27.7 (10-20); Calcium 8.8 mg/dl (8.5-10.1); Creatinine Clr Calc Pharmacy 31.8 ml/min; Est GFR (African American) 51.8; Est GFR (Non-African American) 44.7
[2020-03-23] MEDS ORDERED: DEXTROSE 50% 50 ML SYRINGE IV ONE ×2 (09:36)
[2020-03-23] MEDS: D5W AND 1/2NSS 1,000 ML IV SCH ×2 (10:14→22:51)
--- NOTE | 2020-03-23 18:47 | Hospitalist Progress Note ---
Date of Service March 23, 2020 Assessment & Plan (1) Multifocal pneumonia: recurrent pneumonia 2/2 recurrent aspiration. Poor prognosis. Appreciate pulm recommendations regarding limited options. Cont broad spectrum Zosyn and NPO status. Respiratory status has improved, restarting IVF. BIPAP made things worse overnight, would not try this again. If he decompensates, would contact [facility] and progress him to comfort care My goal would be to get him enrolled in Hospice prior to discharge. (2) Aspiration into lower respiratory tract: - NPO as above - Aspiration precautions - Speech therapy evaluation ordered but they cannot feed him while he is so confused, also oral mucous membranes are very dry. -Will defer until patient improves clinically. (3) Urinary tract infection associated with catheterization of urinary tract: MDR Morganella CAUTI. Cont Zosyn for now. ID consult Wednesday. (4) Metabolic encephalopathy: Suspect related to above infections. Cont plan above. (5) Severe protein-calorie malnutrition: Currently NPO due to concern for aspiration Nutrition consult - the potential of enteral nutrition has been discussed in the past although this would not eliminate the risk of aspiration and will not get him to his goal weight or bring back any QOL. (6) CKD (chronic kidney disease), stage III: Creatinine appears to be at baseline at present although BUN elevated, suspect from mild dehdyration - Follow labs (7) BPH loc w urin obs/LUTS: Pt has indwelling Guy catheter - last changed by urology one week ago. (8) Schizoaffective disorder: May be contributing to combativeness and encephalopathy, Continue outpatient med regimen once taking po (cogentin) (9) HTN (hypertension): BP at present is stable - holding oral meds for now. Continue to monitor. (10) Dementia: reorient as needed (11) DVT prophylaxis: CODE STATUS UPDATE: I SPOKE WITH PERI ARCEO-ACTING DIRECTOR AT OFFICE OF AGING-WHO GAVE A VERBAL ORDER ALLOWING A CHANGE OFF CODE STATUS TO DNR. THIS WAS UPDATED IN THE CHART. IF STATUS WORSENS OVERNIGHT OR ON THE WEEKEND, CONTACT [facility] CIVIL SERVICE WORKERBLACK ASH BURNER OPERATOR KEITH AT [phone] FOR FURTHER CHANGES NEEDED. Heparin Dispo-uncertain, cont PCU monitoring. [facility]anny Leg[facility] and Anticipated Discharge Date Admission Date: March 21, 2020 Subjective 79 yo M presents found down at [facility], hypoxic, admitted for multifocal recurrent pneumonia and aspiration -patient still encephalopathic so cannot obtain ROS -respiratory status is improved. He is not working to breathe as hard. Restarted IVF this morning. -not able to converse or tolerate PO -hypglycemic 32, received D50 amp Review of Systems Review of Systems: All systems reviewed & are unremarkable except as noted in Subjective Physical Exam Physical Exam: CONSTITUTIONAL: thin, frail, vitals as above, NAD EYES: pupils are round and equal bilaterally, normal conjunctivae ENT: external ear and nose normal, mucous membranes are dry RESPIRATORY: limited exam as patient uncooperative, clear to auscultation bilaterally with diminished breath sounds throughout, no crackles, rales or wheezes, increased respiratory effort with accessory muscle use. CARDIOVASCULAR: regular rate and rhythm, S1 and 2 heard without murmurs, gallops or rubs, no JVD, no peripheral edema GASTROINTESTINAL: soft, nontender, nondistended, no guarding MUSCULOSKELETAL: strength 5/5 throughout, head is normocephalic and atraumatic SKIN: warm and dry, large hemangioma present on lip NEUROLOGIC: limited as patient is encephalopathic and in respiratory distress. Results & Data Results & Data ([facility]) Vital Signs (Past 12 Hours) Vital Signs Temp Pulse Pulse Resp BP Pulse Ox 03/23/20 16:12 36.9 C 81 20 110/63 98 03/23/20 14:30 82 03/23/20 12:52 36.8 C 83 22 105/48 L 100 03/23/20 10:03 92 H 03/23/20 07:51 37.5 C 88 24 124/70 95 Laboratory Results Short CBC 03/23/20 Range/Units 08:15 WBC 14.43 H (4.8-10.8) K/uL Hgb 9.7 L (14.0-18.0) g/dL Hct 29.5 L (42-52) % Plt Count 151 (130-400) K/uL BMP 03/23/20 08:15 Sodium 144 Potassium 4.0 D Chloride 111 H Carbon Dioxide 26 BUN 41 H Creatinine 1.47 H D Glucose 32 L* Calcium 8.8 Medications Administered Current Inpatient Medications Albuterol (Albut/Ipratrop 3mg/0.5mg Neb 3 Ml Vial) 3 ml NEB Q2R PRN PRN Reason: Wheezing Stop: 01/16/21 19:24 Heparin Sodium (Porcine) (Heparin Sod 5,000 Unit/0.5 Ml Vial) 5,000 units SQ Q12 MICKIE Stop: 04/20/20 20:59 Last Admin: 03/23/20 09:26 Dose: 5,000 units Documented by: Piperacillin Sod/Tazobactam (Sod 3.375 gm/ Dextrose) 115 mls @ 28.75 mls/hr IV Q8H MICKIE; Protocol Stop: 03/29/20 09:59 Last Admin: 03/23/20 17:39 Dose: 28.8 mls/hr Documented by: Dextrose/Sodium Chloride (D5w And 1/2nss) 1,000 mls @ 80 mls/hr IV .[id number] [facility] Stop: 04/22/20 09:59 Last Admin: 03/23/20 10:14 Dose: 80 mls/hr Documented by: Miscellaneous Information (Piperacill/Tazobac Consult Active) 1 ea N/A UD PRN PRN Reason: Consult Stop: 04/21/20 01:15 (1) Aspiration into lower respiratory tract Encounter type: initial encounter Qualified Code(s): T17.800A - Unspecified foreign body in other parts of respiratory tract causing asphyxiation, initial encounter (2) Urinary tract infection associated with catheterization of urinary tract Encounter type: initial encounter Indwelling urinary catheter type: indwelling urethral catheter Qualified Code(s): T83.511A - Infection and inflammatory reaction due to indwelling urethral catheter, initial encounter; N39.0 - Urinary tract infection, site not specified (3) CKD (chronic kidney disease), stage III Chronic kidney disease stage 3 subtype: unspecified whether 3a or 3b Qualified Code(s): N18.30 - Chronic kidney disease, stage 3 unspecified (4) Schizoaffective disorder Schizoaffective disorder type: unspecified Qualified Code(s): F25.9 - Mickie izoaffective disorder, unspecified (5) HTN (hypertension) Hypertension type: essential hypertension Qualified Code(s): I10 - Essential (primary) hypertension (6) Dementia Dementia type: vascular dementia Dementia behavioral disturbance: with behavioral disturbance Qualified Code(s): F01.51 - Vascular dementia with behavioral disturbance
[2020-03-24] MEDS: PIPERACILLIN/TAZOBACTAM 3.375 GM in DEXTROSE 5% 100 ML IV SCH ×3 (02:59→17:36)
[2020-03-24 06:47] LABS: Hematocrit (blood only) 25.6 % (42-52); Hemoglobin 8.4 g/dL (14.0-18.0); Mean Corpuscular Hemoglobin 30.4 pg (25-34); Mean Corpuscular Hgb Conc 32.8 g/dL (32-36); Mean Corpuscular Volume 92.8 fL (80-100); Mean Platelet Volume 9.6 fL (7.4-10.4); Platelet Count 134 K/uL (130-400); RDW Coefficient of Variation 18.2 % (11.5-14.5); RDW Standard Deviation 61.6 fL (36.4-46.3); Red Blood Count 2.76 M/uL (4.7-6.1); White Blood Count 14.45 K/uL (4.8-10.8)
[2020-03-24 07:29] LABS: BUN Creatinine Ratio 26.2 (10-20); Calcium 8.5 mg/dl (8.5-10.1); Creatinine Clr Calc Pharmacy 31.4 ml/min; Est GFR (African American) 54.1; Est GFR (Non-African American) 46.7; Magnesium 1.9 mg/dl (1.8-2.4); Phosphorus 3.1 mg/dl (2.5-4.9); Potassium 3.3 mmol/L (3.5-5.1)
--- NOTE | 2020-03-24 08:12 | XRay Report ---
XR chest 1V portable HISTORY: 80 years-old Male worsening hypoxia acute hypoxia COMPARISON: Chest radiograph 03/22/2020 TECHNIQUE: Portable AP view of the chest FINDINGS: Limited exam secondary to positioning. Cardiomegaly. Calcified plaque of the thoracic aorta. The apic es are partially obscured by the patient's chin. The patient is rotated. Small left and trace right p leural effusions. The right pleural effusion has decreased in size from comparison. Multifocal airspa ce opacities redemonstrated, left greater than right overall have progressively worsened from compari son. Degenerative changes of the shoulders and spine. IMPRESSION: 1. Progressively worsened bilateral airspace opacities suggest multifocal pneumonia. 2. Small left and trace right pleural effusions. 3. Cardiomegaly. ACT 112: Negative or not required by law. The above report was generated using voice recognition software. It may contain grammatical, syntax o r spelling errors. Electronically signed by: Ezekiel Horner M.D. 03/24/2020 8:11 AM
[2020-03-24] MEDS: HEPARIN SOD 5,000 UNIT/0.5 ML VIAL SQ SCH ×2 (09:27→22:11)
[2020-03-24] MEDS ORDERED: POTASSIUM CHLORIDE 20 MEQ/15 ML UDC PO STA (13:49)
--- NOTE | 2020-03-24 13:49 | Hospitalist Progress Note ---
Date of Service March 24, 2020 Assessment & Plan (1) Multifocal pneumonia: recurrent pneumonia 2/2 recurrent aspiration. Poor prognosis. Appreciate pulm recommendations regarding limited options. Cont broad spectrum Zosyn and NPO status. Respiratory status declined again this morning, patient still unresponsive to stimuli initially. Repeat CXR showed worsening of multiple infiltrates. Oxygen needs increased from 2LPM to 11 LPM overnight. Contacated [facility]--made patient comfort care Patient was reassessed and more awake and requesting food. For now, cont abx, feed liberally. Cont supportive care. Hospice strongly recommended prior to discharge. (2) Aspiration into lower respiratory tract: -feed as above. Aspiration precautions. Speech therapy evaluation (3) Urinary tract infection associated with catheterization of urinary tract: MDR Morganella CAUTI. Cont Zosyn for now. ID consult Wednesday. (4) Metabolic encephalopathy: Suspect related to above infections. Improved just this morning somewhat. He appears to be clearing. (5) Severe protein-calorie malnutrition: Currently NPO due to concern for aspiration Nutrition consult - the potential of enteral nutrition has been discussed in the past although this would not eliminate the risk of aspiration and will not get him to his goal weight or bring back any QOL. (6) CKD (chronic kidney disease), stage III: Creatinine appears to be at baseline at present although BUN elevated, suspect from mild dehdyration - Follow labs (7) BPH loc w urin obs/LUTS: Pt has indwelling Guy catheter - last changed by urology one week ago. (8) Schizoaffective disorder: May be contributing to combativeness and encephalopathy, Continue outpatient med regimen once taking po (cogentin) (9) HTN (hypertension): BP at present is stable - holding oral meds for now. Continue to monitor. (10) Dementia: reorient as needed (11) Hypoglycemia: 2/2 poor PO intake. Diet liberalized. Received dextrose in IVF all yesterday. (12) Hypokalemia: 2/2 poor PO intake. Replaced. (13) DVT prophylaxis: CODE STATUS -DNR/DNI Heparin Dispo-uncertain, cont PCU monitoring. Spoke with Brook Zuniga (acting Director [facility]) on Wednesday and changed code status to DNR/DNI. Spoke with her again this morning and she is in support of comfort care measures. I am liberalizing his diet and decided to continue antibiotics now that he is more awake. Fanny Leger DO [facility] Hospitalist Admission and Anticipated Discharge Date Admission Date: March 21, 2020 Subjective 79 yo M presents found down at [facility], hypoxic, admitted for multifocal recurrent pneumonia and aspiration -patient is more awake this morning and able to vocalize that he is hungry and thirsty and would like some Mountain Dew. Denies pain. Denies SOB (pt is on 11 LPM oxygen supplementation) -prior to this respiratory status worsened and I had updated [facility] about this increased need, the worsening infiltrates on CXR this morning, his emaciated state, his intermittent bradycardia, and his hypoglycemia and hypothermia. -Per acting Director Brook Zuniga, she was OK with a transition to comfort care measures. -This was when he was more comatose this morning. -After the call, he was more awake as above, and so we are continuing treatment with Zosyn but allowing him to eat, knowing that he is a chronic aspirator as more of a palliative quality of life goal. -If he aspirates and desaturates beyond the point that supplemental oxygen will keep his saturation >88-90%, then we will consider transitioning him to comfort measures only -If he continues to stay stable today, will transfer him to the floor tomorrow. -If he improves altogether, then would strongly recommend that he leave on Hospice with the goal not to return to the hospital if hypoxic episode develops in the future. -This care plan was discussed in detail with his primary nurse. Review of Systems Review of Systems: All systems reviewed & are unremarkable except as noted in Subjective Physical Exam Physical Exam: CONSTITUTIONAL: thin, frail, emaciated, vitals as above, NAD EYES: pupils are round and equal bilaterally, normal conjunctivae ENT: external ear and nose normal, mucous membranes are dry RESPIRATORY: coarse rhonchi and crackles throughout. no wheezing, no increased respiratory effort. CARDIOVASCULAR: regular rate and rhythm, S1 and 2 heard without murmurs, gallops or rubs, no JVD, no peripheral edema GASTROINTESTINAL: soft, nontender, nondistended, no guarding MUSCULOSKELETAL: strength 5/5 throughout, head is normocephalic and atraumatic SKIN: warm and dry, large hemangioma present on lip NEUROLOGIC: limited ability to assess, currently appears nonfocal as he is answering questions more now and appears more approrpiate. Results & Data Results & Data ([facility]) Vital Signs (Past 12 Hours) Vital Signs Temp Pulse Pulse Pulse Resp BP Pulse Ox 03/24/20 12:00 36.6 C 76 18 98/54 L 98 03/24/20 08:00 62 03/24/20 07:00 36.6 C 72 22 105/55 L 80 L 03/24/20 03:45 36.5 C 75 22 125/65 100 Pulse Ox 03/24/20 12:00 03/24/20 08:00 91 03/24/20 07:00 03/24/20 03:45 Laboratory Results Short CBC 03/24/20 Range/Units 06:18 WBC 14.45 H (4.8-10.8) K/uL Hgb 8.4 L (14.0-18.0) g/dL Hct 25.6 L (42-52) % Plt Count 134 (130-400) K/uL BMP 03/24/20 06:18 Sodium 145 Potassium 3.3 L D Chloride 110 H Carbon Dioxide 30 BUN 37 H Creatinine 1.41 H Glucose 64 L Calcium 8.5 Diagnostic Findings [facility], [id number] XRay Report Patient: EVELIN RAMOS EAdmit Date: 03/21/20MR#: [id number]: [address] DRAcct ID:[id number]: [facility] [address] Zip: [place], [place] [address]Ges: 80Location: 2SSex: MRoom/Bed: [id number] Phy: Fanny Leger, DODiagnosis: Multifocal pneumonia, metabolic encephalopathyPri Phy: [facility] Date: 03/24/20Fam Phy:Interpreting Phy: Julian HornerAdmjalen Phy: Fanny Leger DO Ordering Phy: Fanny Leger DO cc: ~ XR chest 1V portable HISTORY: 80 years-old Male worsening hypoxia acute hypoxia COMPARISON: Chest radiograph 03/22/2020 TECHNIQUE: Portable AP view of the chest FINDINGS: Limited exam secondary to positioning. Cardiomegaly. Calcified plaque of the thoracic aorta. The apices are partially obscured by the patient's chin. The patient is rotated. Small left and trace right pleural effusions. The right pleural effusion has decreased in size from comparison. Multifocal airspace opacities redemonstrated, left greater than right overall have progressively worsened from comparison. Degenerative changes of the shoulders and spine. IMPRESSION: 1. Progressively worsened bilateral airspace opacities suggest multifocal pneumonia. 2. Small left and trace right pleural effusions. 3. Cardiomegaly. ACT 112: Negative or not required by law. The above report was generated using voice recognition software. It may contain grammatical, syntax or spelling errors. Electronically signed by: Ezekiel Horner M.D. 03/24/2020 8:11 AM Dictated: 03/24/20807Transcribed: 03/24/20 08 Medications Administered Current Inpatient Medications Albuterol (Albut/Ipratrop 3mg/0.5mg Neb 3 Ml Vial) 3 ml NEB Q2R PRN PRN Reason: Wheezing Stop: 04/20/20 19:24 Heparin Sodium (Porcine) (Heparin Sod 5,000 Unit/0.5 Ml Vial) 5,000 units SQ Q12 SHERIE Stop: 04/20/20 20:59 Last Admin: 03/24/20 09:27 Dose: 5,000 units Documented by: Piperacillin Sod/Tazobactam (Sod 3.375 gm/ Dextrose) 115 mls @ 28.75 mls/hr IV Q8H SHERIE; Protocol Stop: 03/29/20 09:59 Last Infusion: 03/24/20 13:46 Dose: Infused Documented by: Miscellaneous Information (Piperacill/Tazobac Consult Active) 1 ea N/A UD PRN PRN Reason: Consult Stop: 04/21/20 01:15 (1) Aspiration into lower respiratory tract Encounter type: initial encounter Qualified Code(s): T17.800A - Unspecified foreign body in other parts of respiratory tract causing asphyxiation, initial encounter (2) Urinary tract infection associated with catheterization of urinary tract Encounter type: initial encounter Indwelling urinary catheter type: indwelling urethral catheter Qualified Code(s): T83.511A - Infection and inflammatory reaction due to indwelling urethral catheter, initial encounter; N39.0 - Urinary tract infection, site not specified (3) CKD (chronic kidney disease), stage III Chronic kidney disease stage 3 subtype: unspecified whether 3a or 3b Qualified Code(s): N18.30 - Chronic kidney disease, stage 3 unspecified (4) Schizoaffective disorder Schizoaffective disorder type: unspecified Qualified Code(s): F25.9 - Schizoaffective disorder, unspecified (5) HTN (hypertension) Hypertension type: essential hypertension Qualified Code(s): I10 - Essential (primary) hypertension (6) Dementia Dementia type: vascular dementia Dementia behavioral disturbance: with behavioral disturbance Qualified Code(s): F01.51 - Vascular dementia with behavioral disturbance
[2020-03-24] MEDS: MIRTAZAPINE TAB 15 MG TAB PO SCH (22:09)
[2020-03-24] MEDS: BENZTROPINE MESYLATE 1 MG TAB PO SCH (22:10)
[2020-03-24] MEDS: DOCUSATE SODIUM 100 MG CAP PO SCH (22:10)
[2020-03-24] MEDS: ARTIFICIAL TEARS OP SCH (22:12)
[2020-03-25] MEDS: PIPERACILLIN/TAZOBACTAM 3.375 GM in DEXTROSE 5% 100 ML IV SCH ×3 (04:28→20:23)
[2020-03-25] MEDS: BENZTROPINE MESYLATE 1 MG TAB PO SCH ×2 (08:04→17:24)
[2020-03-25] MEDS: DOCUSATE SODIUM 100 MG CAP PO SCH ×2 (08:04→20:24)
[2020-03-25] MEDS: FINASTERIDE 5 MG TAB PO SCH (08:04)
[2020-03-25] MEDS: TAMSULOSIN HCL 0.4 MG CAP PO SCH (08:04)
[2020-03-25] MEDS: ARTIFICIAL TEARS OP SCH ×2 (08:05→20:24)
[2020-03-25] MEDS: HEPARIN SOD 5,000 UNIT/0.5 ML VIAL SQ SCH ×2 (08:05→20:24)
[2020-03-25 08:30] LABS: Basophils # (auto) 0.03 K/uL (0-0.2); Basophils % (auto) 0.2 %; Eosinophils # (auto) 0.05 K/uL (0-0.5); Eosinophils % (auto) 0.3 %; Hematocrit (blood only) 29.5 % (42-52); Hemoglobin 9.4 g/dL (14.0-18.0); Immature Granulocytes % (auto) 0.6 %; Lymphocytes % (auto) 4.8 %; Mean Corpuscular Hemoglobin 29.8 pg (25-34); Mean Corpuscular Hgb Conc 31.9 g/dL (32-36); Mean Corpuscular Volume 93.7 fL (80-100); Mean Platelet Volume 10.1 fL (7.4-10.4); Monocytes # (auto) 0.78 K/uL (0.11-0.59); Monocytes % (auto) 4.7 %; Neutrophils # (auto) 14.83 K/uL (1.4-6.5); Neutrophils % (auto) 89.4 %; Platelet Count 162 K/uL (130-400); RDW Standard Deviation 61.8 fL (36.4-46.3); Red Blood Count 3.15 M/uL (4.7-6.1); White Blood Count 16.59 K/uL (4.8-10.8)
[2020-03-25 09:03] LABS: BUN Creatinine Ratio 29.9 (10-20); Calcium 9.1 mg/dl (8.5-10.1); Est GFR (African American) 59.7; Est GFR (Non-African American) 51.5; Magnesium 1.9 mg/dl (1.8-2.4); Phosphorus 2.7 mg/dl (2.5-4.9); Potassium 3.1 mmol/L (3.5-5.1)
--- NOTE | 2020-03-25 10:09 | Palliative Care Consultation ---
Date of Consultation March 25, 2020 Assessment & Plan (1) Palliative care encounter: -I was able to have a lengthy conversation with Radha, [employer] employee and also Brandon's direct guardian through guardianship process. We have talked at length numerous times during his last admission and he has returned with recurrent aspiration and has periods of hypoxia. -Over the weekend, the store sales consultant director for [facility] has allowed Brandon to transition to a DNR/DNI based on his complicated medical course, along with the poor prognosis that he does have, regardless of intervention. -I did confirm with Radha today that we will move forward with having Hospice services on board upon his discharge from the hospital back to [facility]. -POLST form completed indicating DNR/DNI, FRONT DESK SPECIALIST, trial abx, and no artificial nutrition/hydration. Patient does have periods of lethargy and is less responsive, but is able to return to his normal baseline confused cognition. He did, per nursing, wake and ask for a Mountain Dew. -For now, continue current treatment, including antibiotics, but no further escalation of care. Plan for pt to return to [facility] with hospice services, likely at the end of the week/weekend. should patient decline and be consistently unresponsive, consider full transition to FRONT DESK SPECIALIST here at the hospital. Palliative care will follow. (2) Severe protein-calorie malnutrition: (3) Dementia: Dementia behavioral disturbance: with behavioral disturbance Dementia type: vascular dementia Qualified Code(s): F01.51 - Vascular dementia with behavioral disturbance History of Present Illness Reason for Consultation: Goals of care Requesting Physician: Dr. Leger Attending Physician: Fanny Leger, History of Present Illness This is a 79 year old male who presented to the [facility] from [facility] at [facility] with altered mental status, SOB, combativeness, and recurrent asp iration. He had a recent inpatient admission for the same complaints from February 08-2019. The patient has a significant PMH that includes CVA, vascular dementia, scizoaffective disorder, dysphagia s/p CVA, anemia, HTN, BPH with urinary retention (chronic indwelling stafford catheter), and recurrent sepsis. The patient does not have established next of kin and is legal guardianship is held by Radha at [employer] ([phone]). The patient has decreased PO intake, confusion and is overall emaciated with a > 40 pound weight loss over the past few months. He is being treated for UTI and PNA. The patient was a full code, but [facility] was agreeable to transition to a full DNR over the weekend. Palliative Care was consulted to discuss goals of care. Thank you for involving palliative care with this patient. Allergies Allergy/AdvReac Type Severity Reaction Status Date / Time olanzapine Allergy Mild "IT DOES Verified 03/14/20 13:33 NOT WORK" risperidone Allergy Unknown UNKNOWN Verified 03/14/20 13:33 lisinopril AdvReac Severe Verified 03/14/20 13:33 Influenza Virus Vaccines AdvReac PAIN AT Verified 03/14/20 13:33 INJECTION SITE Tricyclic Antidepressants Allergy Unknown Unknown Uncoded 03/14/20 13:33 Home Medications Medication Instructions Recorded Confirmed Type Artificial Tears (PF) 1 drp OPB BID 11/22/18 03/21/20 History benztropine 1 mg PO BID 11/22/18 03/21/20 History docusate sodium 100 mg PO BID 11/22/18 03/21/20 History fluphenazine decanoate 25 mg IM MONTHLY 11/22/18 03/21/20 History memantine 10 mg PO BID 11/22/18 03/21/20 History mirtazapine 30 mg PO HS@2000 11/22/18 03/21/20 History acetaminophen [Tylenol] 650 mg PO Q4 PRN MDD 3G 03/15/19 03/21/20 History tamsulosin 0.4 mg PO QAM@0800 03/15/19 03/21/20 History finasteride 5 mg PO QAM@0800 05/07/19 03/21/20 History fluphenazine HCl 2.5 mg PO Q6H PRN 05/07/19 03/21/20 History perphenazine 2 mg PO UD 06/05/19 03/21/20 History Saccharomyces boulardii [Florastor] 250 mg PO BID 02/09/20 03/21/20 History bisacodyl [Dulcolax (bisacodyl)] 10 mg WA DAILY PRN 02/09/20 03/21/20 History lactase [Lactaid] 3,000 unit PO TIDM 02/09/20 03/21/20 History melatonin 0 mg PO UD PRN 02/09/20 03/21/20 History multivitamin with minerals 1 tab PO DAILY 02/09/20 03/21/20 History Patient History Medical History Anemia Anxiety BPH loc w urin obs/LUTS CKD (chronic kidney disease), stage III Dementia Dysphagia following CVA H/O: CVA (cerebrovascular accident) Hemangioma of lip HTN (hypertension) Indwelling Stafford catheter present Muscle weakness (generalized) Palliative care encounter Pulmonary nodule Recurrent aspiration pneumonia Schizoaffective disorder Sepsis due to Pseudomonas March 2019 Urinary retention Urinary retention due to benign prostatic hyperplasia Surgical History Hx of cataract surgery S/P tonsillectomy Family History Other Hypertension Social History Smoking Status: Unknown if ever smoked Years Smoked: 50; Second Hand Exposure: No; Hx Alcohol Use: No Hx Substance Use: No Preferred Language: Lithuanian Communication Ability: Unable Communication Ability Comment: Rachelenly following basic commands. Rodent Exterminator Required: No Beliefs That Will Affect Care: None marital status: Single Current Living Situation: Detention [facility] Other Information That Helps Us Care for You: No Feels Safe at Home: Declines to Answer Assistive Devices: Oxygen - Continuous Assistive Devices Comment: 2 person assist with repositioning. Review of Systems Review of Systems: Unobtainable due to reduced consciousness Physical Exam Constitutional: + acute distress, + cachectic and + frail appearing; + uncooperative Respiratory: + uses accessory muscles and + cough Auscultation: + rhonchi Cardiovascular: Rate/Rhythm: regular rate and regular rhythm Heart Sounds: normal S1 and normal S2 Extremities: normal capillary refill Gastrointestinal (Abdomen): normal bowel sounds, soft, nontender, no hepatosplenomegaly Skin: + turgor decreased Psychiatric: Orientation: + not alert (intermittent periods of being awake and alert/interactive ) Results & Data ([facility]) Vital Signs (Past 12 Hours) Vital Signs Temp Pulse Pulse Resp BP Pulse Ox 03/25/20 07:30 36.3 C L 55 L 20 142/86 H 90 03/24/20 23:00 36.3 C L 50 L 20 127/67 99 PG Care Time/CCT Total # of Minutes Spent Total Time Spent with Patient: Total time spent is greater than 50% in coordination of care (as documented) at patient's floor/unit and/or counseling patient: 70 Coding Level of Care Code 92358 Inpt Consult Level 3 Diagnoses Palliative care encounter Z51.5 Severe protein-calorie malnutrition E43 Dementia F01.51 Dementia behavioral disturbance: with behavioral disturbance Dementia type: vascular dementia Time Spent (min) 70 Time Spent Midlevel Total time spent 70 minutes with > 50% of that time spent assessing the patient, discussing goals of care with the decision maker and collaborating with IDT
[2020-03-25] MEDS ORDERED: POTASSIUM CHLORIDE CRTAB 20 MEQ TABCR PO ONE (14:45)
--- NOTE | 2020-03-25 16:06 | Hospitalist Progress Note ---
Date of Service March 25, 2020 Assessment & Plan (1) Multifocal pneumonia: recurrent pneumonia 2/2 recurrent aspiration. Poor prognosis. Appreciate pulm recommendations regarding limited options. Cont broad spectrum Zosyn and NPO status. Respiratory status declined again this morning, patient still unresponsive to stimuli initially. Repeat CXR showed worsening of multiple infiltrates. Oxygen needs increased from 2LPM to 11 LPM --> he is now needing back to 3 to 4 L/min. Contacted [facility]--made patient comfort care Patient was reassessed and more awake and requesting food. For now, cont abx, feed liberally. Cont supportive care. Hospice strongly recommended prior to discharge. (2) Aspiration into lower respiratory tract: -feed as above. Aspiration precautions. Speech therapy evaluation (3) Urinary tract infection associated with catheterization of urinary tract: MDR Morganella CAUTI. Cont Zosyn for now. ID consult Wednesday. (4) Metabolic encephalopathy: Suspect related to above infections. Improved just this morning somewhat. He appears to be clearing. (5) Severe protein-calorie malnutrition: Currently NPO due to concern for aspiration Nutrition consult - the potential of enteral nutrition has been discussed in the past although this would not eliminate the risk of aspiration and will not get him to his goal weight or bring back any QOL. (6) CKD (chronic kidney disease), stage III: Creatinine appears to be at baseline at present although BUN elevated, suspect from mild dehdyration - Follow labs (7) BPH loc w urin obs/LUTS: Pt has indwelling Guy catheter - last changed by urology one week ago. (8) Schizoaffective disorder: May be contributing to combativeness and encephalopathy, Continue outpatient med regimen once taking po (cogentin) (9) HTN (hypertension): BP at present is stable - holding oral meds for now. Continue to monitor. (10) Dementia: reorient as needed (11) Hypoglycemia: 2/2 poor PO intake. Diet liberalized. Dextrose IV as needed. (12) Hypokalemia: 2/2 poor PO intake. Replaced. (13) DVT prophylaxis: CODE STATUS -DNR/DNI Heparin Dispo-uncertain, cont PCU monitoring. The patient is a DNR/DNI that we are still treating but who we are allowing to eat anything he wants. Strongly recommend transitioning to comfort care measures if he continues to sleep and be unresponsive. If he improves, will strongly recommend he leaves on Hospice. [facility] Hospitalist Admission and Anticipated Discharge Date Admission Date: March 21, 2020 Subjective 79 yo M presents [facility], admitted for multifocal recurrent pneumonia and aspiration The patient is sleeping and is not easily arousable He is nonverbal and not communicating with me Per primary nurse he was up and able to eat breakfast this morning and was con versing somewhat with her, she reports that he has been sleeping most of the day since then. Palliative care involved in case now and touching base with [facility] Review of Systems Review of Systems: Unobtainable due to cognitive status Physical Exam Physical Exam: CONSTITUTIONAL: thin, frail, emaciated, vitals as above, NAD EYES: pupils are round and equal bilaterally, normal conjunctivae ENT: external ear and nose normal, mucous membranes are dry RESPIRATORY: coarse rhonchi and crackles throughout. no wheezing, no increased respiratory effort. CARDIOVASCULAR: regular rate and rhythm, S1 and 2 heard without murmurs, gallops or rubs, no JVD, no peripheral edema GASTROINTESTINAL: soft, nontender, nondistended, no guarding MUSCULOSKELETAL: strength 5/5 throughout, head is normocephalic and atraumatic SKIN: warm and dry, large hemangioma present on lip NEUROLOGIC: limited ability to assess, patient is not focusing on my voice or giving any indication he understands my attempts at communication. Results & Data Results & Data ([facility]) Vital Signs (Past 12 Hours) Vital Signs Temp Pulse Resp BP Pulse Ox 03/25/20 07:30 36.3 C L 55 L 20 142/86 H 90 Laboratory Results Short CBC 03/25/20 Range/Units 07:53 WBC 16.59 H (4.8-10.8) K/uL Hgb 9.4 L (14.0-18.0) g/dL Hct 29.5 L (42-52) % Plt Count 162 (130-400) K/uL BMP 03/25/20 07:53 Sodium 144 Potassium 3.1 L Chloride 110 H Carbon Dioxide 27 BUN 39 H Creatinine 1.30 Glucose 98 Calcium 9.1 Medications Administered Current Inpatient Medications Albuterol (Albut/Ipratrop 3mg/0.5mg Neb 3 Ml Vial) 3 ml NEB Q2R PRN PRN Reason: Wheezing Stop: 04/20/20 19:24 Artificial Tears (Artificial Tears) 1 drops OP BID [facility] Stop: 04/23/20 20:59 Last Admin: 03/25/20 08:05 Dose: 1 drops Documented by: Benztropine Mesylate (Benztropine Mesylate 1 Mg Tab) 1 mg PO BID@0800,1700 [facility] Stop: 04/23/20 18:44 Last Admin: 03/25/20 08:04 Dose: 1 mg Documented by: Docusate Sodium (Docusate Sodium 100 Mg Cap) 100 mg PO BID [facility] Stop: 04/23/20 20:59 Last Admin: 03/25/20 08:04 Dose: 100 mg Documented by: Finasteride (Finasteride 5 Mg Tab) 5 mg PO QAM@0800 [facility] Stop: 04/24/20 07:59 Last Admin: 03/25/20 08:04 Dose: 5 mg Documented by: Heparin Sodium (Porcine) (Heparin Sod 5,000 Unit/0.5 Ml Vial) 5,000 units SQ Q12 [facility] Stop: 04/20/20 20:59 Last Admin: 03/25/20 08:05 Dose: 5,000 units Documented by: Piperacillin Sod/Tazobactam (Sod 3.375 gm/ Dextrose) 115 mls @ 28.75 mls/hr IV Q8H [facility]; Protocol Stop: 03/29/20 09:59 Last Infusion: 03/25/20 16:00 Dose: Infused Documented by: Mirtazapine (Mirtazapine Tab 15 Mg Tab) 30 mg PO HS@2000 [facility] Stop: 04/23/20 19:59 Last Admin: 03/24/20 22:09 Dose: 30 mg Documented by: Miscellaneous Information (Piperacill/Tazobac Consult Active) 1 ea N/A UD PRN PRN Reason: Consult Stop: 04/21/20 01:15 Tamsulosin HCl (Tamsulosin Hcl 0.4 Mg Cap) 0.4 mg PO QAM@0800 [facility] Stop: 04/24/20 07:59 Last Admin: 03/25/20 08:04 Dose: 0.4 mg Documented by: (1) Urinary tract infection associated with catheterization of urinary tract Encounter type: initial encounter Indwelling urinary catheter type: indwelling urethral catheter Qualified Code(s): T83.511A - Infection and inflammatory reaction due to indwelling urethral catheter, initial encounter; N39.0 - Urinary tract infection, site not specified (2) Aspiration into lower respiratory tract Encounter type: initial encounter Qualified Code(s): T17.800A - Unspecified foreign body in other parts of respiratory tract causing asphyxiation, initial encounter (3) CKD (chronic kidney disease), stage III Chronic kidney disease stage 3 subtype: unspecified whether 3a or 3b Qualified Code(s): N18.30 - Chronic kidney disease, stage 3 unspecified (4) Dementia Dementia behavioral disturbance: with behavioral disturbance Dementia type: vascular dementia Qualified Code(s): F01.51 - Vascular dementia with behavioral disturbance (5) Schizoaffective disorder Schizoaffective disorder type: unspecified Qualified Code(s): F25.9 - Schizoaffective disorder, unspecified (6) HTN (hypertension) Hypertension type: essential hypertension Qualified Code(s): I10 - Essential (primary) hypertension
[2020-03-25] MEDS: MIRTAZAPINE TAB 15 MG TAB PO SCH (20:23)
[2020-03-26] MEDS ORDERED: ACETAMINOPHEN 325 MG TAB ONE (00:24)
[2020-03-26] MEDS: ACETAMINOPHEN 325 MG TAB PO PRN (00:26)
[2020-03-26] MEDS: PIPERACILLIN/TAZOBACTAM 3.375 GM in DEXTROSE 5% 100 ML IV SCH ×3 (05:01→21:04)
[2020-03-26] MEDS: TAMSULOSIN HCL 0.4 MG CAP PO SCH (08:49)
[2020-03-26] MEDS: DOCUSATE SODIUM 100 MG CAP PO SCH ×2 (08:49→21:05)
[2020-03-26] MEDS: BENZTROPINE MESYLATE 1 MG TAB PO SCH ×2 (08:49→17:24)
[2020-03-26] MEDS: FINASTERIDE 5 MG TAB PO SCH (08:49)
[2020-03-26] MEDS: ARTIFICIAL TEARS OP SCH ×2 (08:50→21:05)
[2020-03-26] MEDS: HEPARIN SOD 5,000 UNIT/0.5 ML VIAL SQ SCH ×2 (08:50→21:04)
[2020-03-26 10:19] LABS: Basophils # (auto) 0.02 K/uL (0-0.2); Basophils % (auto) 0.2 %; Eosinophils # (auto) 0.07 K/uL (0-0.5); Eosinophils % (auto) 0.6 %; Hematocrit (blood only) 29.7 % (42-52); Hemoglobin 9.7 g/dL (14.0-18.0); Immature Granulocytes # (auto) 0.08 K/uL (0.00-0.02); Immature Granulocytes % (auto) 0.7 %; Lymphocytes # (auto) 0.61 K/uL (1.2-3.4); Lymphocytes % (auto) 5.6 %; Mean Corpuscular Hemoglobin 30.2 pg (25-34); Mean Corpuscular Hgb Conc 32.7 g/dL (32-36); Mean Corpuscular Volume 92.5 fL (80-100); Mean Platelet Volume 9.6 fL (7.4-10.4); Monocytes # (auto) 0.52 K/uL (0.11-0.59); Monocytes % (auto) 4.8 %; Neutrophils # (auto) 9.63 K/uL (1.4-6.5); Neutrophils % (auto) 88.1 %; Platelet Count 169 K/uL (130-400); RDW Coefficient of Variation 17.8 % (11.5-14.5); RDW Standard Deviation 61.3 fL (36.4-46.3); Red Blood Count 3.21 M/uL (4.7-6.1); White Blood Count 10.93 K/uL (4.8-10.8)
[2020-03-26 10:41] LABS: BUN Creatinine Ratio 32.8 (10-20); Calcium 9.2 mg/dl (8.5-10.1); Creatinine Clr Calc Pharmacy 38.8 ml/min; Est GFR (Non-African American) 60.4; Magnesium 1.9 mg/dl (1.8-2.4); Phosphorus 2.3 mg/dl (2.5-4.9); Potassium 4.1 mmol/L (3.5-5.1)
--- NOTE | 2020-03-26 18:00 | Hospitalist Progress Note ---
Date of Service March 26, 2020 Assessment & Plan (1) Multifocal pneumonia: recurrent pneumonia 2/2 recurrent aspiration. Poor prognosis. Appreciate pulm recommendations regarding limited options. Cont broad spectrum Zosyn and NPO status. Respiratory status declined again this morning, patient still unresponsive to stimuli initially. Repeat CXR showed worsening of multiple infiltrates. Oxygen needs increased from 2LPM to 11 LPM --> he is now needing back to 3 to 4 L/min. Contacted [facility]--made patient comfort care Patient was reassessed and more awake and requesting food. For now, cont abx, feed liberally. Cont supportive care. Hospice strongly recommended prior to discharge. Lindsay filled out POLST with "patient not to return to hospital unless cleared by [facility]" (2) Aspiration into lower respiratory tract: -feed as above. Aspiration precautions. Cont Zosyn for now. Speech therapy evaluation (3) Urinary tract infection associated with catheterization of urinary tract: MDR Morganella CAUTI. Cont Zosyn for now. Pending ID recommendations. (4) Metabolic encephalopathy: Suspect related to above infections. Appears to be resolved to his baseline. (5) Severe protein-calorie malnutrition: Liberalized diet as we are taking more of a palliative approach. QOL is the goal. We know he will likely aspirate again. Nutrition consult - the potential of enteral nutrition has been discussed in the past although this would not eliminate the risk of aspiration and will not get him to his goal weight or bring back any QOL. (6) CKD (chronic kidney disease), stage III: Creatinine appears to be at baseline at present although BUN elevated, suspect from mild dehdyration - Follow labs (7) BPH loc w urin obs/LUTS: Pt has indwelling Guy catheter - last changed by urology one week ago. (8) Schizoaffective disorder: Occasionally results in combativeness and encephalopathy, cont cogentin per home regimen. (9) HTN (hypertension): BP at present is stable - holding oral meds for now. Continue to monitor. (10) Dementia: reorient as needed (11) Hypoglycemia: 2/2 poor PO intake. Diet liberalized. Dextrose IV as needed. (12) Hypokalemia: repleted and normal level today. (13) DVT prophylaxis: CODE STATUS -DNR/DNI Heparin Dispo-uncertain, cont PCU monitoring. Palliative care and QOL is the goal over all. Recommend he leave on Hospice and not return to the hospital for hypoxia in the future. Ideally should be on Hospice. WINDY is aware and working on this issue. Fanny Leger DO [facility] Hospitalist Admission and Anticipated Discharge Date Admission Date: March 21, 2020 Subjective 79 yo M presents found down at [facility], hypoxic, admitted for multifocal recurrent pneumonia and aspiration The patient is awake and oriented to self but is conversing with me. Denies pain or SOB He is thirsty We discussed his poor pulmonary status and the fact that there is no treatment for this. We discussed that although we can give him abx for 7 days, he will likely a spirate and that our goal is to keep him comfortable He asked me what he was taking, and I told him the name of the abx HE told me he has a phD in chemistry and that if I needed his help I could ask h im for it He appears comfortable and states that he is. Communicated plan to palliative med, CM and primary nurse. Review of Systems Review of Systems: All systems reviewed & are unremarkable except as noted in Subjective Physical Exam Physical Exam: CONSTITUTIONAL: thin, frail, emaciated, vitals as above, NAD EYES: pupils are round and equal bilaterally, normal conjunctivae ENT: external ear and nose normal, mucous membranes are dry RESPIRATORY: coarse rhonchi and crackles throughout. no wheezing, no increased respiratory effort. CARDIOVASCULAR: regular rate and rhythm, S1 and 2 heard without murmurs, gallops or rubs, no JVD, no peripheral edema GASTROINTESTINAL: soft, nontender, nondistended, no guarding MUSCULOSKELETAL: strength 5/5 throughout, head is normocephalic and atraumatic SKIN: warm and dry, large hemangioma present on lip, small roselyn of ecchymosis over his right eyebrow which has been present since admission but not documented previously. NEUROLOGIC: no gross focal deficits. Results & Data Results & Data ([facility]) Vital Signs (Past 12 Hours) Vital Signs Temp Pulse Resp BP BP Pulse Ox 03/26/20 15:43 36.6 C 100 H 20 160/76 H 99 03/26/20 06:50 35.8 C L 60 20 129/71 92 Laboratory Results Short CBC 03/26/20 Range/Units 09:43 WBC 10.93 H (4.8-10.8) K/uL Hgb 9.7 L (14.0-18.0) g/dL Hct 29.7 L (42-52) % Plt Count 169 (130-400) K/uL BMP 03/26/20 09:43 Sodium 147 H Potassium 4.1 D Chloride 112 H Carbon Dioxide 31 BUN 37 H Creatinine 1.14 Glucose 101 H Calcium 9.2 Medications Administered Current Inpatient Medications Acetaminophen (Acetaminophen 325 Mg Tab) 650 mg PO Q6H PRN PRN Reason: Fever Stop: 04/25/20 00:11 Last Admin: 03/26/20 00:26 Dose: 650 mg Documented by: Albuterol (Albut/Ipratrop 3mg/0.5mg Neb 3 Ml Vial) 3 ml NEB Q2R PRN PRN Reason: Wheezing Stop: 04/20/20 19:24 Artificial Tears (Artificial Tears) 1 drops OP BID [facility] Stop: 04/23/20 20:59 Last Admin: 03/26/20 08:50 Dose: 1 drops Documented by: Benztropine Mesylate (Benztropine Mesylate 1 Mg Tab) 1 mg PO BID@0800,1700 [facility] Stop: 04/23/20 18:44 Last Admin: 03/26/20 17:24 Dose: 1 mg Documented by: Docusate Sodium (Docusate Sodium 100 Mg Cap) 100 mg PO BID [facility] Stop: 04/23/20 20:59 Last Admin: 03/26/20 08:49 Dose: 100 mg Documented by: Finasteride (Finasteride 5 Mg Tab) 5 mg PO QAM@0800 [facility] Stop: 04/24/20 07:59 Last Admin: 03/26/20 08:49 Dose: 5 mg Documented by: Heparin Sodium (Porcine) (Heparin Sod 5,000 Unit/0.5 Ml Vial) 5,000 units SQ Q12 [facility] Stop: 04/20/20 20:59 Last Admin: 03/26/20 08:50 Dose: 5,000 units Documented by: Piperacillin Sod/Tazobactam (Sod 3.375 gm/ Dextrose) 115 mls @ 28.75 mls/hr IV Q8H [facility]; Protocol Stop: 03/29/20 09:59 Last Admin: 03/26/20 12:00 Dose: 28.8 mls/hr Documented by: Mirtazapine (Mirtazapine Tab 15 Mg Tab) 30 mg PO HS@2000 [facility] Stop: 04/23/20 19:59 Last Admin: 03/25/20 20:23 Dose: 30 mg Documented by: Miscellaneous Information (Piperacill/Tazobac Consult Active) 1 ea N/A UD PRN PRN Reason: Consult Stop: 04/21/20 01:15 Tamsulosin HCl (Tamsulosin Hcl 0.4 Mg Cap) 0.4 mg PO QAM@0800 [facility] Stop: 04/24/20 07:59 Last Admin: 03/26/20 08:49 Dose: 0.4 mg Documented by: (1) Aspiration into lower respiratory tract Encounter type: initial encounter Qualified Code(s): T17.800A - Unspecified foreign body in other parts of respiratory tract causing asphyxiation, initial encounter (2) Urinary tract infection associated with catheterization of urinary tract Encounter type: initial encounter Indwelling urinary catheter type: indwelling urethral catheter Qualified Code(s): T83.511A - Infection and inflammatory reaction due to indwelling urethral catheter, initial encounter; N39.0 - Urinary tract infection, site not specified (3) CKD (chronic kidney disease), stage III Chronic kidney disease stage 3 subtype: unspecified whether 3a or 3b Qualified Code(s): N18.30 - Chronic kidney disease, stage 3 unspecified (4) Schizoaffective disorder Schizoaffective disorder type: unspecified Qualified Code(s): F25.9 - Schizoaffective disorder, unspecified (5) HTN (hypertension) Hypertension type: essential hypertension Qualified Code(s): I10 - Essential (primary) hypertension (6) Dementia Dementia type: vascular dementia Dementia behavioral disturbance: with behavioral disturbance Qualified Code(s): F01.51 - Vascular dementia with behavioral disturbance
[2020-03-26] MEDS: MIRTAZAPINE TAB 15 MG TAB PO SCH (21:05)
[2020-03-27] MEDS: PIPERACILLIN/TAZOBACTAM 3.375 GM in DEXTROSE 5% 100 ML IV SCH ×3 (05:20→20:21)
[2020-03-27] MEDS: FINASTERIDE 5 MG TAB PO SCH (08:44)
[2020-03-27] MEDS: TAMSULOSIN HCL 0.4 MG CAP PO SCH (08:44)
[2020-03-27] MEDS: DOCUSATE SODIUM 100 MG CAP PO SCH ×2 (08:44→20:04)
[2020-03-27] MEDS: BENZTROPINE MESYLATE 1 MG TAB PO SCH ×2 (08:44→17:33)
[2020-03-27] MEDS: HEPARIN SOD 5,000 UNIT/0.5 ML VIAL SQ SCH ×2 (08:45→20:05)
[2020-03-27] MEDS: ARTIFICIAL TEARS OP SCH ×2 (08:45→20:06)
--- NOTE | 2020-03-27 09:53 | Hospitalist Progress Note ---
Date of Service March 27, 2020 Assessment & Plan (1) Aspiration into lower respiratory tract: (2) Multifocal pneumonia: Hypoxic respiratory failure Recurrent pneumonia 2/2 recurrent aspiration. Poor prognosis. Appreciate pulm recommendations regarding limited options. Will follow up ID recommendations Currently on 4l/min nasal oxygen Previous Provider contacted [facility] and made patient comfort care Cont supportive care. Hospice strongly recommended prior to discharge. Lindsay with Palliative filled out POLST with "patient not to return to hospital unless cleared by [facility]" (3) Urinary tract infection associated with catheterization of urinary tract: MDR Morganella CAUTI. Cont Zosyn for now day 6. Pending ID recommendations. (4) Metabolic encephalopathy: Likely due to above mentioned conditions Back to baseline (5) Severe protein-calorie malnutrition: Liberalized diet as we are taking more of a palliative approach. QOL is the goal. Likely to continue to aspirate. Aspiration precautions with feeding Nutrition consult - the potential of enteral nutrition has been discussed in the past although this would not eliminate the risk of aspiration and will not get him to his goal weight or bring back any QOL. Pressure ulcers as documented under exam -Sacral ulcer stage 3 -DTI heel Wound care (6) CKD (chronic kidney disease), stage III: Last creatinine appears to be at baseline (7) BPH loc w urin obs/LUTS: Pt has indwelling Stafford catheter - last changed by urology one week ago. (8) Schizoaffective disorder: Occasionally results in combativeness and encephalopathy Continue cogentin per home regimen. (9) HTN (hypertension): BP at present is stable Continue holding oral meds for now. Continue to monitor. (10) Dementia: Reorient as needed (11) Hypoglycemia: 2/2 poor PO intake. Diet liberalized. Dextrose IV as needed. (12) Hypokalemia: Repleted Last was normal (13) DVT prophylaxis: CODE STATUS -DNR/DNI Heparin Dispo-uncertain, cont PCU monitoring. Palliative care and QOL is the goal overall. Recommend he leave on Hospice and not return to the hospital for hypoxia in the future. Ideally should be on Hospice. WINDY is aware and working on this issue. Will follow up with CM about this Admission and Anticipated Discharge Date Admission Date: March 21, 2020 Subjective Patient seen and examined Patient denied any complaints Denied any pain Denied any chest pain, cough, SOB Denied any abd pain, diarrhea, constipation, nausea, vomiting Has a stafford in. 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 Coarse breath sounds, scattered crackles Cardiovascular: Rate/Rhythm: regular rate and regular rhythm S1 S2. No pedal edema Gastrointestinal (Abdomen): normal bowel sounds, soft, nontender, no hepatosplenomegaly Skin: Stage 3 sacral pressure wound Deep tissue injury on left posterior heel (fluid filled) Neurologic: PERRL, EOMI, accommodation nl, no face palsy, no dysarthria Psychiatric: Orientation: alert, oriented to person and oriented to place Affect: euthymic affect Genitourinary: Stafford in situ (reported chronic per RN) Results & Data Results & Data ([facility]) Vital Signs (Past 12 Hours) Vital Signs Temp Pulse Resp BP Pulse Ox 03/27/20 08:00 36.5 C 92 H 22 137/56 L 91 03/26/20 23:49 36.5 C 84 20 166/84 H 96 (1) Urinary tract infection associated with catheterization of urinary tract Encounter type: initial encounter Indwelling urinary catheter type: indwelling urethral catheter Qualified Code(s): T83.511A - Infection and inflammatory reaction due to indwelling urethral catheter, initial encounter; N39.0 - Urinary tract infection, site not specified (2) Aspiration into lower respiratory tract Encounter type: initial encounter Qualified Code(s): T17.800A - Unspecified foreign body in other parts of respiratory tract causing asphyxiation, initial encounter (3) CKD (chronic kidney disease), stage III Chronic kidney disease stage 3 subtype: unspecified whether 3a or 3b Qualified Code(s): N18.30 - Chronic kidney disease, stage 3 unspecified (4) Dementia Dementia behavioral disturbance: with behavioral disturbance Dementia type: vascular dementia Qualified Code(s): F01.51 - Vascular dementia with behavioral disturbance (5) Schizoaffective disorder Schizoaffective disorder type: unspecified Qualified Code(s): F25.9 - Schizoaffective disorder, unspecified (6) HTN (hypertension) Hypertension type: essential hypertension Qualified Code(s): I10 - Essential (primary) hypertension
[2020-03-27] MEDS: MIRTAZAPINE TAB 15 MG TAB PO SCH (20:04)
[2020-03-28] MEDS ORDERED: MoRPHine SULFATE 4 MG/ML 1 ML CARP\\VIAL IV STA (02:40)
[2020-03-28] MEDS: PIPERACILLIN/TAZOBACTAM 3.375 GM in DEXTROSE 5% 100 ML IV SCH ×2 (04:04→12:47)
[2020-03-28] MEDS: BENZTROPINE MESYLATE 1 MG TAB PO SCH ×2 (08:10→17:33)
[2020-03-28] MEDS: DOCUSATE SODIUM 100 MG CAP PO SCH ×2 (08:10→20:24)
[2020-03-28] MEDS: HEPARIN SOD 5,000 UNIT/0.5 ML VIAL SQ SCH ×2 (08:10→20:24)
[2020-03-28] MEDS: TAMSULOSIN HCL 0.4 MG CAP PO SCH (08:11)
[2020-03-28] MEDS: FINASTERIDE 5 MG TAB PO SCH (08:12)
[2020-03-28] MEDS: ARTIFICIAL TEARS OP SCH ×2 (08:12→20:24)
--- NOTE | 2020-03-28 10:10 | Hospitalist Progress Note ---
Date of Service March 28, 2020 Assessment & Plan (1) Aspiration into lower respiratory tract: -feed as above. Aspiration precautions. Cont Zosyn for now. Speech therapy evaluation (2) Multifocal pneumonia: Hypoxic respiratory failure Recurrent pneumonia 2/2 recurrent aspiration. Poor prognosis. Appreciate pulm recommendations regarding limited options. Currently on 5l/min nasal oxygen Previous Provider contacted [facility] and made patient comfort care Cont supportive care. Hospice strongly recommended prior to discharge. Lindsay with Palliative filled out POLST with "patient not to return to hospital unless cleared by [facility]" (3) Urinary tract infection associated with catheterization of urinary tract: MDR Morganella CAUTI. Cont Zosyn for now day 7 today. ID recommended iv ertapenem to complete total 14 day therapy Antibiotics changed to ertapenem (4) Metabolic encephalopathy: Likely due to above mentioned conditions Back to baseline (5) Severe protein-calorie malnutrition: Liberalized diet as we are taking more of a palliative approach. QOL is the goal. Likely to continue to aspirate. Aspiration precautions with feeding Nutrition consult - the potential of enteral nutrition has been discussed in the past although this would not eliminate the risk of aspiration and will not get him to his goal weight or bring back any QOL. Pressure ulcers as documented under exam -Sacral ulcer stage 3 -DTI heel Wound care (6) CKD (chronic kidney disease), stage III: Last creatinine appears to be at baseline (7) BPH loc w urin obs/LUTS: Pt has indwelling Guy catheter - last changed by urology one week ago. (8) Schizoaffective disorder: Occasionally results in combativeness and encephalopathy Continue cogentin per home regimen. (9) HTN (hypertension): BP at present is stable Continue holding oral meds for now. Continue to monitor. (10) Dementia: Reorient as needed (11) Hypoglycemia: 2/2 poor PO intake. Diet liberalized. Dextrose IV as needed. (12) Hypokalemia: Repleted Last was normal (13) DVT prophylaxis: Heparin CODE STATUS -DNR/DNI Pain control Dispo- Possible discharge tomorrow to SNF. Will get USS IV for remaining days of antibiotics. Admission and Anticipated Discharge Date Admission Date: March 21, 2020 Subjective Patient seen and examined Reporting body pains Denied other complaints Physical Exam Constitutional: + acute distress (Mild distress), + thin and + cachectic Eyes: PERRL, conjunctivae normal, anicteric sclerae ENMT: external ear and nose normal, oropharynx normal Respiratory: normal respiratory effort Bilateral crackles, on 5l/min nasal oxygen Cardiovascular: Rate/Rhythm: regular rate and regular rhythm S1 S2 Gastrointestinal (Abdomen): normal bowel sounds, soft, nontender, no hepatosplenomegaly Musculoskeletal: Stage 3 sacral pressure wound Deep tissue injury on left posterior heel (fluid filled) Neurologic: PERRL, EOMI, accommodation nl, no face palsy, no dysarthria Psychiatric: Orientation: alert and oriented to person Results & Data Results & Data ([facility]) Vital Signs (Past 12 Hours) Vital Signs Temp Pulse Pulse Resp BP Pulse Ox 03/28/20 07:37 70 18 163/85 H 03/28/20 04:57 100 H 19 95 03/28/20 01:25 20 98 03/27/20 23:15 36.9 C 74 20 122/74 92 (1) Urinary tract infection associated with catheterization of urinary tract Encounter type: initial encounter Indwelling urinary catheter type: indwelling urethral catheter Qualified Code(s): T83.511A - Infection and inflammatory reaction due to indwelling urethral catheter, initial encounter; N39.0 - Urinary tract infection, site not specified (2) Aspiration into lower respiratory tract Encounter type: initial encounter Qualified Code(s): T17.800A - Unspecified foreign body in other parts of respiratory tract causing asphyxiation, initial encounter (3) CKD (chronic kidney disease), stage III Chronic kidney disease stage 3 subtype: unspecified whether 3a or 3b Qualified Code(s): N18.30 - Chronic kidney disease, stage 3 unspecified (4) Dementia Dementia behavioral disturbance: with behavioral disturbance Dementia type: vascular dementia Qualified Code(s): F01.51 - Vascular dementia with behavioral disturbance (5) Schizoaffective disorder Schizoaffective disorder type: unspecified Qualified Code(s): F25.9 - Schizoaffective disorder, unspecified (6) HTN (hypertension) Hypertension type: essential hypertension Qualified Code(s): I10 - Essential (primary) hypertension
[2020-03-28 10:26] LABS: Creatinine Clr Calc Pharmacy 41.1 ml/min; Est GFR (African American) 75.6; Est GFR (Non-African American) 65.2
[2020-03-28] MEDS ORDERED: MoRPHine SULFATE 2 MG/ML CARP IV PRN (11:01)
[2020-03-28] MEDS: ERTAPENEM SODIUM 1,000 MG in SODIUM CHLORIDE 0.9% 50 ML IV SCH (13:30)
[2020-03-28] MEDS: MIRTAZAPINE TAB 15 MG TAB PO SCH (20:23)
[2020-03-28] MEDS: ACETAMINOPHEN 325 MG TAB PO PRN (21:44)
[2020-03-29 06:55] LABS: Creatinine Clr Calc Pharmacy 43.6 ml/min; Est GFR (Non-African American) 69.9
[2020-03-29] MEDS ORDERED: SCOPOLAMINE 1.5 MG TDSY TD SCH (08:00)
[2020-03-29] MEDS: HEPARIN SOD 5,000 UNIT/0.5 ML VIAL SQ SCH (10:06)
[2020-03-29] MEDS: FINASTERIDE 5 MG TAB PO SCH (10:06)
[2020-03-29] MEDS: TAMSULOSIN HCL 0.4 MG CAP PO SCH (10:06)
[2020-03-29] MEDS: BENZTROPINE MESYLATE 1 MG TAB PO SCH (10:07)
[2020-03-29] MEDS: DOCUSATE SODIUM 100 MG CAP PO SCH (10:07)
[2020-03-29] MEDS: ARTIFICIAL TEARS OP SCH (10:08)
[2020-03-29] MEDS: ERTAPENEM SODIUM 1,000 MG in SODIUM CHLORIDE 0.9% 50 ML IV SCH (12:17)
--- NOTE | 2020-03-29 15:55 | Discharge Summary ---
Date of Service March 29, 2020 Admission HPI Per Admitting Provider This is a 79 y/o male with a history of prior CVA, vascular dementia, schizoaffective d/o, dysphagia s/p CVA, anemia, HTN, BPH w/ urinary retention and chronic Guy, pulmonary nodule, and prior episode of sepsis in 2018 and in 2019 x2, who was brought to the ED today via EMS from [facility] due to hypoxia with O2 sats due to 73-74% on RA. History from the patient is unobtainable so history obtained from review of records and report from ED physician. This morning apparently pt became more short of breath and was noted to be hypoxic so EMS was called. He did have COVID testing on Wednesday of this week at [facility] that was negative. Of note, pt was recently admitted to this facility 02/08- 02/19/20 with sepsis due to pneumonia, potentially due to aspiration, and possible UTI. Pt does have a chronic Guy. Speech evaluation during that admission recommended pureed diet with aspiration precautions. Palliative care did see patient as well that admission. Pt currently has a guardian who is his decision maker. Principal Diagnosis Aspiration into lower respiratory tract Multifocal pneumonia Acute hypoxic respiratory Urinary tract infection Severe Protein Calorie malnutrition Discharge Exam Constitutional + acute distress (Mild distress), + thin and + cachectic Eyes PERRL, conjunctivae normal, anicteric sclerae ENMT external ear and nose normal, oropharynx normal Right upper lip hemangioma Respiratory normal respiratory effort; no respiratory distress On 5l/min, bilateral crackles Cardiovascular Rate/Rhythm: regular rate and regular rhythm S1 S2 Gastrointestinal (Abdomen) normal bowel sounds, soft, nontender, no hepatosplenomegaly Musculoskeletal Stage 3 sacral pressure wound Deep tissue injury on left posterior heel Neurologic PERRL, EOMI, accommodation nl, no face palsy, no dysarthria Psychiatric Orientation: alert and oriented to person Discharge Data Allergies Allergy/AdvReac Type Severity Reaction Status Date / Time olanzapine Allergy Mild "IT DOES Verified 03/14/20 13:33 NOT WORK" risperidone Allergy Unknown UNKNOWN Verified 03/14/20 13:33 lisinopril AdvReac Severe Verified 03/14/20 13:33 Influenza Virus Vaccines AdvReac PAIN AT Verified 03/14/20 13:33 INJECTION SITE Tricyclic Antidepressants Allergy Unknown Unknown Uncoded 03/14/20 13:33 Consultations 03/21/20 13:56 ED Decision to Admit Stat 03/22/20 09:50 Consult Pulmonology Routine 03/24/20 13:53 Consult Infectious Diseases Routine 03/25/20 10:02 Consult Palliative Care Routine Ordered Studies 03/21/20 10:34 CT head/brain wo con Stat 03/21/20 11:38 CT angio chest PE protocol Stat Hospital Course (1) Aspiration into lower respiratory tract: (2) Multifocal pneumonia: Acute hypoxic respiratory failure Recurrent pneumonia 2/2 recurrent aspiration. Poor prognosis. Appreciate pulm recommendations regarding limited options. Currently on 5l/min nasal oxygen Previous Physician had discussions with [facility], legal guardian and Palliative. Patient was made comfort care. Hospice strongly recommended prior to discharge. Lindsay with Palliative filled out POLST with "patient not to return to hospital unless cleared by [facility]" (3) Urinary tract infection associated with catheterization of urinary tract: MDR Morganella CAUTI. ID recommended iv ertapenem to complete total 14 day therapy Patient got USS IV to complete remaining 7 days of antibiotics (4) Metabolic encephalopathy: Due to above mentioned conditions (5) Severe protein-calorie malnutrition: Liberalized diet as we are taking more of a palliative approach. Quality of life is the goal. Likely to continue to aspirate. Aspiration precautions with feeding Pressure ulcers as documented under exam -Sacral ulcer stage 3 -DTI heel Wound care (6) CKD (chronic kidney disease), stage III: Last creatinine appears to be at baseline (7) BPH loc w urin obs/LUTS: Pt has indwelling Guy catheter - last changed by urology over one week ago. (8) Schizoaffective disorder: Occasionally results in combativeness and encephalopathy (9) HTN (hypertension): BP meds had been discontinued (10) Dementia: Reorient as needed (11) Hypoglycemia: 2/2 poor PO intake. Diet liberalized (12) Hypokalemia: Repleted Last was normal Total Time Total Time Spent Total Time Spent (In Minutes): 35 Total Time Includes: Examination of the Patient, Discharge Planning and Medication Reconciliation Discharge Plan Discharge Items Patient Disposition: Transfer Half-Way Fac Reason For Visit: Multifocal pneumonia, metabolic encephalopathy Discharge Diagnosis: Multifocal pneumonia Aspiration into lower respiratory tract Urinary tract infection Metabolic encephalopathy Severe protein calorie malnutrition Pressure ulcer Activity: Resume your previous activity Non-emergency contact: Primary Care Provider Call non-emergency contact if: you have any medication questions Follow-up/Referrals: [facility] [Primary Care Provider] - Diet: Regular Diet Texture: Pureed (blended smooth) Addtl Attending Provider Instructions: Mr Mcfarland was admitted to the hospital for hypoxia (low oxygen levels). He was evaluated and found to have multifocal pneumonia, aspiration and urinary tract infection He was treated with antibiotics. After discussions between Providers, legal guardian, Office of aging, Palliative team; patient was planned for discharge on comfort care. Patient still needs to complete remaining days of antibiotic therapy. Pending Studies at Discharge: No Stand-Alone Forms: My [facility] Skilled Items Patient informed of condition?: Yes DNR: Yes Discharge Level of Care: Skilled Communicable Disease: No Discharge Prognosis: Deteriorating Lines: Peripheral IV Urinary Catheter: Yes Medications and DC Order Prescriptions: New ertapenem 1 gram recon soln 1 g IV DAILY 7 Days Qty: 7 RF: 0 polyvinyl alcohol [Artificial Tears (polyvin alc)] 1.4 % Drops 1 drp ophthalmic (eye) BID Qty: 1 RF: 0 mirtazapine 15 mg Tablet 30 mg PO HS@2000 Qty: 30 RF: 0 scopolamine base [Transderm-Scop] 1 mg over 3 days Patch 3 Day 1.5 mg transdermal Q72H 30 Days Qty: 10 RF: 0 morphine 10 mg/5 mL solution 5 mg PO Q6H PRN (Reason: pain or respiratory distress) Qty: 100 RF: 0 Continued bisacodyl [Dulcolax (bisacodyl)] 10 mg Suppository 10 mg [place] DAILY PRN (Reason: Constipation) Qty: 30 RF: 0 Discontinued tamsulosin 0.4 mg Capsule 0.4 mg PO QAM@0800 RF: 0 acetaminophen [Tylenol] 325 mg Tablet 650 mg PO Q4 MDD 3G PRN (Reason: Fever Or Pain) RF: 0 perphenazine 2 mg Tablet 2 mg PO UD RF: 0 fluphenazine decanoate 25 mg/mL Solution 25 mg IM MONTHLY RF: 0 mirtazapine 30 mg Tablet 30 mg PO HS@2000 RF: 0 benztropine 1 mg Tablet 1 mg PO BID RF: 0 docusate sodium 100 mg Tablet 100 mg PO BID RF: 0 Artificial Tears (PF) Dropperette 1 drp OPB BID RF: 0 memantine 10 mg Tablet 10 mg PO BID RF: 0 fluphenazine HCl 2.5 mg tablet 2.5 mg PO Q6H PRN (Reason: Mood Stabilizer) RF: 0 finasteride 5 mg Tablet 5 mg PO QAM@0800 RF: 0 Saccharomyces boulardii [Florastor] 250 mg Capsule 250 mg PO BID RF: 0 multivitamin with minerals Tablet 1 tab PO DAILY RF: 0 lactase [Lactaid] 3,000 unit Tablet 3,000 unit PO TIDM RF: 0 melatonin 5 mg Tablet 0 mg PO UD PRN (Reason: Sleep) RF: 0 Discharge Orders: Discharge Order (Routine); Ordered 03/29/20 Ordered By: April Giordano Admission Data Admit Date/Time: 03/21/20 14:43 Attending Provider: April Giordano I. Admit Provider: Fanny Leger Primary Care Provider: [facility] Other Providers: Fanny Leger ; Matthew Rivera ; Dominick Soto ; Hudson Hurtado ; Anibal Burdick I. ; Michael Silverman II ; Yamini Fallon ; Demetris Lyons ; [facility] ; Purvi Tirado Other Interventions: Discharge Summary Assessment (RN) Last Done: 03/29/20 10:23
[2020-03-29] MEDS ORDERED: CHECK SCOPOLAMINE PATCH PLACEMENT SCH (16:00)
--- NOTE | 2020-04-02 14:16 | Coding Query ---
CODING QUERY To promote full compliance with coding requirements relating to patient care, provider participation is requested in all cases of cytology technologist uncertainty. Please assist us with the question(s) below: Coding Question(s): Seeking to clarify the type of pneumonia that was treated. The Discharge Summary states aspiration into the lower respiratory tract and multifocal pneumonia is documented. Under provider instructions it states he was evaluated and found to have multifocal pneuonia, aspiration and UTI.. Please check below the phrase that describes the Pneumonia that was treated. Thanks for your help! Physician's Response(s): __x Aspiration Pneumonia Pneumonia/Other Cannot Clinically Correlate the type of Pneumonia that was treated Other/ Please document : Principal Diagnosis: "that condition established after study, to be chiefly responsible for occasioning the admission of the patient to the hospital for care." Co-Existing Principal Diagnosis: "when two or more diagnoses equally meet the criteria for principal diagnosis as determined by the circumstances of admission, diagnostic work up, and/or therapy provided, and the Alphabetic Index, Tabular List, or another coding guideline does not provide sequencing direction, any one of the diagnoses may be sequenced first." "When the physician has documented what appears to be a current diagnosis in the body of the record, but has not included the diagnosis in the final diagnostic statement, the physician should be asked whether the diagnosis should be added." (Source Coding [facility] 2 QTR90. p3-4) NIDHID
== END 2020-03-29 15:15 | DRG 177 ==
LOC: ED 10:02 → SUATTDRO 14:43 → 2S 14:43 → 2N 03-24 13:58